=== PATIENT | female | born 1965 | race Caucasian/White ===

== ENCOUNTER 2019-08-10 00:58 | Emergency (ER) | payer OTHER, SELFPAY ==
--- NOTE | ~2019-08-10 | CT_ITS ---
EXAMINATION: CT abdomen pelvis w con DATE: 08/10/2019 02:45 INDICATION: Right flank pain. TECHNIQUE: Computed tomography (CT) of the abdomen and pelvis was performed with 100 mL Omnipaque 350 intravenous contrast. Automated exposure control and iterative reconstruction technique were employe d. The dose-length product was 349.83 mGy-cm. COMPARISON: CT pelvis 03/10/2016, chest CT 08/13/2016 FINDINGS: The visualized portions of the lung bases demonstrate severe emphysema and mild atelectasis . There are scattered pulmonary nodules measuring up to 5 mm without change, consistent with granulom atous disease. No pleural effusion. The heart size is normal. No pericardial effusion. There are cyst s in the liver measuring up to 6 mm. The gallbladder, spleen, pancreas, and adrenal glands are normal . There is cortical thinning of right kidney. There is a 5 mm cyst in left kidney. There are no dilat ed loops of bowel. The appendix is normal. There are no pathologically enlarged lymph nodes. There is no free intraperitoneal fluid. There is a benign bone island in T11 vertebral body. There is mild sol mbar spondylosis. IMPRESSION: 1. Severe emphysema. Reviewed, dictated and finalized at location A. IMPRESSION: 1. Severe emphysema.
[2019-08-10 01:07] VITALS: BP 118/88; PULSE 122; RESP 23; TEMP 36.5; O2SAT 94
--- NOTE | 2019-08-10 01:23 | ED.GENADULT ---
HPI - General Adult General Chief complaint: Extremity Injury, Lower Stated complaint: right hip pain Time Seen by Provider: 08/10/19 01:06 Source: patient Mode of arrival: EMS Limitations: no limitations History of Present Illness HPI narrative: Patient is a 54-year-old female with a history of COPD who presents for evaluation of right hip pain. Patient reports a 3-day history of worsening right hip pain, described as moderate in nature, worsened with movement, dull and aching in nature. No recent falls or injuries. She has a history of chronic lower back pain states that has been worsened from baseline as well. No recent heavy lifting. She has been mostly at home continued her saw from others. She denies any fever, worsening cough, shortness of breath. No rashes or redness. Patient reports the pain is on the outside of her hip. She denies flank pain. No numbness. No weakness. She has been ambulatory. No bowel or bladder incontinence. Related Data Home Medications Medication Instructions Recorded Confirmed Eliquis 5 mg PO BID 04/30/19 04/30/19 Incruse Ellipta 1 inh INHALATION DAILY 04/30/19 04/30/19 Symbicort 2 puff INHALATION Q12H 04/30/19 04/30/19 acetaminophen 650 mg PO Q4-6H PRN 04/30/19 04/30/19 diclofenac sodium 50 mg PO TID PRN 04/30/19 04/30/19 gabapentin 300 mg PO TID 04/30/19 04/30/19 hydroxyzine pamoate 25 mg PO TID PRN 04/30/19 04/30/19 metoprolol succinate 25 mg PO DAILY 04/30/19 04/30/19 tizanidine 4 mg PO TID 04/30/19 04/30/19 trazodone 50 mg PO HS 04/30/19 04/30/19 venlafaxine 75 mg PO DAILY 04/30/19 04/30/19 Allergies Allergy/AdvReac Type Severity Reaction Status Date / Time nitrofurantoin Allergy Unknown HIVES Verified 08/10/19 01:26 oxycodone Allergy Unknown NAUSEA, Verified 08/10/19 01:26 HEART RACING Review of Systems Review of Systems: Narrative: CONSTITUTIONAL: Denies fever, chills, or sweats. EYES: Denies visual changes, redness, or discharge. ENT: Denies rhinorrhea, congestion, sore throat, or otalgia. CARDIOVASCULAR: Denies chest pain, palpitations, or edema. RESPIRATORY: Denies cough or dyspnea. GASTROINTESTINAL: Denies abdominal pain, nausea, vomiting, or diarrhea. GENITOURINARY: Denies dysuria or hematuria. SKIN: Denies rash or itching. MUSCULOSKELETAL: Reports chronic back pain, reports right joint pain NEUROLOGIC: Denies headache, numbness, or weakness. [facility] Past Medical History Medical History Anemia Anxiety Arm fracture, left Arthritis Back pain Bronchitis COPD (chronic obstructive pulmonary disease) Depression Emphysema of lung Foot fracture, right GERD (gastroesophageal reflux disease) Inguinal hernia Kidney stones On home O2 2 L at rest Pneumonia Pulmonary embolism Sleep apnea UTI (urinary tract infection) Surgical History Surgical History Hx of arthroscopy of left knee Hx of elbow surgery lt elbow Hx of inguinal hernia repair Hx of tonsillectomy Hx of tubal ligation Social History Social History Smoking packs per day: 0.5 Smoking cigarettes per day: 10.0 Years smoked: 30 Smoking pack-years: 15.00 Smoking status: Current every day smoker Second hand tobacco smoke exposure: Yes Gender identity (if verbalized by the patient): Female Spiritual care concerns: No Agree to blood products: Yes Exam Narrative: Exam Narrative: GENERAL: Awake, alert, conversant HEAD: Normocephalic, atraumatic. EYES: PERRLA and EOMI. ENT: Nares clear, no rhinorrhea or epistaxis. Mucous membranes moist. NECK: Supple. CHEST: Nasal cannula in place, no respiratory distress, breathing even and non labored HEART: Regular rate, sinus rhythm ABDOMEN:Non distended, non tender EXTREMITIES: Normal range of motion. Negative straight leg raise. No pain with internal or external rotation of bila
[2019-08-10 01:43] LABS: Basophils Absolute Auto 0.1 K/mm3 (0.0-0.1); Eosinophils Absolute Auto 0.1 K/mm3 (0-0.3); Eosinophils Percent Auto 1.8 % (0-4.4); Hematocrit 47.4 % (37.0-47.0); Hemoglobin 15.2 g/dL (12.0-15.0); Immature Granulocyte Absolute 0.02 K/mm3 (0.00-0.031); Immature Granulocyte Percent A 0.3 % (0-0.5); Lymphocytes Percent Auto 25.8 % (18.3-44.2); Mean Corpuscular HGB Conc 32.1 g/dl (32-36); Mean Corpuscular Hemoglobin 31.1 pg (26-34); Mean Corpuscular Volume 96.9 fl (80-100); Mean Platelet Volume 11.1 fl (7.4-10.4); Monocytes Absolute Auto 0.6 K/mm3 (0.1-0.6); Monocytes Percent Auto 7.7 % (2.6-8.5); Neutrophils Absolute Auto 4.9 K/mm3 (1.3-6.7); Neutrophils Percent Auto 63.4 % (45.5-73.1); Platelet Count Result 312 k/mm3 (150-375); Red Blood Count 4.89 M/mm3 (4.2-5.4); Red Cell Distribution Width 12.3 % (11.5-14.5); White Blood Count 7.8 K/mm3 (4.5-10.0)
[2019-08-10 02:26] LABS: Blood Urea Nitrogen 8 mg/dL (7-17); Calcium 9.1 mg/dL (8.4-10.2); Carbon Dioxide 34 mmol/L (22-30); Chloride 95 mmol/L (98-107); Estimated Glomerular Filt Rate > 60; Glucose 102 mg/dL (65-105); Potassium 4.2 mmol/L (3.4-5.0); Sodium 135 mmol/L (137-145)
[2019-08-10 02:29] LABS: CRP < 0.5 mg/dL (<1.0)
[2019-08-10 02:55] VITALS: BP 123/84; PULSE 92; RESP 12; O2SAT 97
[2019-08-10 03:15] VITALS: BP 115/86; PULSE 94; RESP 12; O2SAT 99
[2019-08-10 03:37] LABS: Erythrocyte Sedimentation Rate 17 mm/hr (0-20)
== END 2019-08-10 03:15 | disposition home or self-care (01) ==
PROVIDERS: Emergency Provider Emergency Medicine; PCP Family Medicine
DX: S76.011A Strain of muscle, fascia and tendon of right hip, initial encounter (principal); J43.9 Emphysema, unspecified; F41.9 Anxiety disorder, unspecified; M19.90 Unspecified osteoarthritis, unspecified site; F32.9 Major depressive disorder, single episode, unspecified; K21.9 Gastro-esophageal reflux disease without esophagitis; Z87.442 Personal history of urinary calculi; Z86.711 Personal history of pulmonary embolism; Z87.440 Personal history of urinary (tract) infections; Z99.81 Dependence on supplemental oxygen; Z86.2 Personal history of diseases of the blood and blood-forming organs and certain disorders involving the immune mechanism; Z79.01 Long term (current) use of anticoagulants; X58.XXXA Exposure to other specified factors, initial encounter
CPT/HCPCS: 36415; 74177; 80048; 85025; 85652; 86140; 99284; A9270; Q9967

== ENCOUNTER 2019-08-14 14:47 | Emergency (ER) | payer OTHER, SELFPAY ==
[2019-08-14 14:59] VITALS: BP 131/103; PULSE 107; RESP 16; TEMP 36.9; O2SAT 96
--- NOTE | 2019-08-14 15:09 | ED.GENADULT ---
HPI - General Adult General Chief complaint: Back Pain/Injury Stated complaint: Lower Back Pain Time Seen by Provider: 08/14/19 15:14 Source: patient and RN notes reviewed Mode of arrival: ambulatory Limitations: no limitations History of Present Illness HPI narrative: 54-year-old female presents with complaints of chronic diffused lower back pain and right hip for the past 4 days. Tylenol and Lidocaine patch with little to no relief. Sharifa says she was treated for RT hip pain in the ED on 08/10/19 and pain continuous to get worse. Sharifa previously was treated with back injections by a pain MD in [place]. Denies new injuries or falls. Denies radiating pain, numbness, or tingling. Denies fever or chills. No new upper or lower extremity pain or weakness. Exacerbating factors consist of prolong standing and bending. Denies diarrhea, nausea, vomiting, or abdominal pain. Tolerating po intake well. Denies problems with urinating or having a bowel movement, LBM 08/13/19 per patient and normal. No flank pain or hematuria or dysuria. Denies headaches, weakness, fatigue, myalgia. Denies chest pain or dyspnea. Denies cough, rhinorrhea, congestion, sore throat. Denies recent traveling. Denies concerns for COVID-19 or exposures been home since [id number] order except for essential household needs and returned home. Some parts of this dictation were generated by voice recognition software and may contain typographical and/or grammatical inaccuracies. Related Data Home Medications Medication Instructions Recorded Confirmed Eliquis 5 mg PO BID 04/30/19 04/30/19 Incruse Ellipta 1 inh INHALATION DAILY 04/30/19 04/30/19 Symbicort 2 puff INHALATION Q12H 04/30/19 04/30/19 acetaminophen 650 mg PO Q4-6H PRN 04/30/19 04/30/19 diclofenac sodium 50 mg PO TID PRN 04/30/19 04/30/19 gabapentin 300 mg PO TID 04/30/19 04/30/19 hydroxyzine pamoate 25 mg PO TID PRN 04/30/19 04/30/19 metoprolol succinate 25 mg PO DAILY 04/30/19 04/30/19 tizanidine 4 mg PO TID 04/30/19 04/30/19 trazodone 50 mg PO HS 04/30/19 04/30/19 venlafaxine 75 mg PO DAILY 04/30/19 04/30/19 Allergies Allergy/AdvReac Type Severity Reaction Status Date / Time nitrofurantoin Allergy Unknown HIVES Verified 08/10/19 01:26 oxycodone Allergy Unknown NAUSEA, Verified 08/10/19 01:26 HEART RACING Review of Systems Review of Systems: Narrative: CONSTITUTIONAL: Denies fever, chills, sweats. EYES: Denies visual changes, redness, discharge. ENT: Denies rhinorrhea, congestion, sore throat, otalgia. CARDIOVASCULAR: Denies chest pain, palpitations, edema. RESPIRATORY: Denies dyspnea, wheezing, cough. GASTROINTESTINAL: Denies abdominal pain, nausea, vomiting, diarrhea. GENITOURINARY: Denies dysuria, hematuria, abnormal discharge. SKIN: Denies rash or itching. MUSCULOSKELETAL: Complains of chronic lower back pain and RT hip pain. Denies myalgia. NEUROLOGIC: Denies numbness or focal weakness. PSYCHIATRIC: Denies anxiety or depression. All systems reviewed & are unremarkable except as noted in HPI and below. [facility] Past Medical History Medical History (Updated 08/14/19 @ 18:54 by EDWINA Wiseman) Anemia Anxiety Arm fracture, left Arthritis Back pain Bronchitis COPD (chronic obstructive pulmonary disease) Depression Emphysema of lung Foot fracture, right GERD (gastroesophageal reflux disease) Inguinal hernia Kidney stones On home O2 2 L at rest and 3 L with activity Pneumonia Pulmonary embolism Sleep apnea UTI (urinary tract infection) Surgical History Surgical History Hx of arthroscopy of left knee Hx of elbow surgery lt elbow Hx of inguinal hernia repair Hx of tonsillectomy Hx of tubal ligation Family History Family History (Updated 08/14/19 @ 18:56 by EDWINA Wiseman) Father , at 46 of lung [place] Lung cancer Mother Cerebrovascular accident Grandparent D
[2019-08-14] MEDS: KETOROLAC (*BKC) 60 MG/2 ML VIAL IM (15:30)
== END 2019-08-14 16:00 | disposition home or self-care (01) ==
PROVIDERS: Emergency Provider Nurse Practitioner Family; PCP Family Medicine
DX: M54.41 Lumbago with sciatica, right side (principal); M19.90 Unspecified osteoarthritis, unspecified site; J43.9 Emphysema, unspecified; K21.9 Gastro-esophageal reflux disease without esophagitis; Z87.442 Personal history of urinary calculi; Z87.440 Personal history of urinary (tract) infections; G47.30 Sleep apnea, unspecified; Z99.81 Dependence on supplemental oxygen; F32.9 Major depressive disorder, single episode, unspecified; F41.9 Anxiety disorder, unspecified; F17.200 Nicotine dependence, unspecified, uncomplicated
CPT/HCPCS: 96372; 99213; G0463; J1885

== ENCOUNTER 2019-10-06 18:18 | Emergency (ER) | payer OTHER, SELFPAY ==
--- NOTE | ~2019-10-06 | XR_ITS ---
EXAMINATION: XR chest 2V DATE: 10/06/2019 19:18 INDICATION: Shortness of breath. TECHNIQUE: Frontal and lateral views of the chest were obtained. COMPARISON: Chest single view 1 11/12, CT abdomen and pelvis 08/10/2019, chest CT 08/13/2016 FINDINGS: There are lucencies in the lungs, consistent with emphysema. There is a spiculated nodule i n left upper lobe. There is mild atelectasis and scarring in the lower lung zones. No pleural effusio n or pneumothorax. The heart size is normal. There is an old healed right rib fracture. IMPRESSION: 1. Spiculated nodule in left upper lobe suspicious for primary bronchogenic carcinoma. Noncontrast ch est CT is recommended. I called this result to Dr. He on 10/06/19 at 19:23. 2. Severe emphysema. 3. Mild atelectasis and scarring in the lower lung zones. Reviewed, dictated and finalized at location A. IMPRESSION: 1. Spiculated nodule in left upper lobe suspicious for primary bronchogenic car cinoma. Noncontrast chest CT is recommended. I called this result to Dr. Aldo marshall on 10/06/19 at 19:23. 2. Severe emphysema. 3. Mild atelectasis and scarring in the lower lung zones.
[2019-10-06 18:42] VITALS: BP 149/101; PULSE 124; RESP 30; O2SAT 96
--- NOTE | 2019-10-06 18:45 | ECG_ITS ---
Measurements Intervals [place] Rate: 119 P: 86 NE: 143 QRS: 53 QRSD: 89 T: 55 QT: 339 QTc: 478 Interpretive Statements SINUS TACHYCARDIA RIGHT ATRIAL ENLARGEMENT MINIMAL Q WAVES- DIFFUSE LEADS BASELINE ARTIFACT- I, III, AVR, AVL, AVF ABNORMAL ECG Electronically Signed On 10-07-2019 7:17:14 CDT by Dick Woodard D.O.
[2019-10-06 19:00] LABS: Basophils Percent Auto 0.5 % (0.2-1.2); Hematocrit 43.4 % (37.0-47.0); Hemoglobin 14.2 g/dL (12.0-15.0); Immature Granulocyte Absolute 0.01 K/mm3 (0.00-0.031); Immature Granulocyte Percent A 0.2 % (0-0.5); Lymphocytes Absolute Auto 0.82 K/mm3 (0.9-3.2); Mean Corpuscular HGB Conc 32.7 g/dl (32-36); Mean Corpuscular Hemoglobin 31.8 pg (26-34); Mean Corpuscular Volume 97.1 fl (80-100); Mean Platelet Volume 10.8 fl (7.4-10.4); Monocytes Absolute Auto 0.2 K/mm3 (0.1-0.6); Monocytes Percent Auto 2.7 % (2.6-8.5); Neutrophils Absolute Auto 4.5 K/mm3 (1.3-6.7); Neutrophils Percent Auto 81.6 % (45.5-73.1); Platelet Count Result 265 k/mm3 (150-375); Red Blood Count 4.47 M/mm3 (4.2-5.4); Red Cell Distribution Width 12.7 % (11.5-14.5); White Blood Count 5.5 K/mm3 (4.5-10.0)
[2019-10-06 19:11] LABS: Blood Urea Nitrogen 10 mg/dL (7-17); Calcium 9.5 mg/dL (8.4-10.2); Carbon Dioxide 28 mmol/L (22-30); Chloride 99 mmol/L (98-107); Estimated CRCL calculation 66 ml/min; Estimated Glomerular Filt Rate > 60; Glucose 176 mg/dL (65-105); Potassium 4.6 mmol/L (3.4-5.0); Sodium 135 mmol/L (137-145)
[2019-10-06 19:50] VITALS: BP 138/98; PULSE 107; PULSE 108; RESP 15; O2SAT 96
--- NOTE | 2019-10-06 20:33 | ED.SOB ---
HPI - SOB/Dyspnea General Chief Complaint: Shortness of Breath/Dyspnea Stated Complaint: SOB/ back pain Time Seen by Provider: 10/06/19 19:43 History of Present Illness HPI Narrative: Patient is a 54-year-old female who presents ER with chest pain and shortness of breath. Patient reports over the last 2 days anytime she walks she is markedly more short of breath than typical for her and she is developing central chest pressure. Patient is an oxygen dependent COPD or who wears 2 L at rest and 3 L with walking. Reports she went to [facility] this morning and received magnesium as well as steroids and breathing treatment and was discharged home. She also reports they performed a CT of her chest and told her she has lung nodules that have grown in size that need to be evaluated further. Patient continues to have chest pain and shortness of breath with exertion and thought it could be related to her heart that is why she came to the ER for second visit. Denies unexplained weight loss. Patient reports that this feels similar to previous COPD exacerbations that she has had. Related Data Home Medications Medication Instructions Recorded Confirmed Eliquis 5 mg PO BID 04/30/19 04/30/19 Incruse Ellipta 1 inh INHALATION DAILY 04/30/19 04/30/19 Symbicort 2 puff INHALATION Q12H 04/30/19 04/30/19 acetaminophen 650 mg PO Q4-6H PRN 04/30/19 04/30/19 diclofenac sodium 50 mg PO TID PRN 04/30/19 04/30/19 gabapentin 300 mg PO TID 04/30/19 04/30/19 hydroxyzine pamoate 25 mg PO TID PRN 04/30/19 04/30/19 metoprolol succinate 25 mg PO DAILY 04/30/19 04/30/19 tizanidine 4 mg PO TID 04/30/19 04/30/19 trazodone 50 mg PO HS 04/30/19 04/30/19 venlafaxine 75 mg PO DAILY 04/30/19 04/30/19 Allergies Allergy/AdvReac Type Severity Reaction Status Date / Time nitrofurantoin Allergy Unknown HIVES Verified 08/10/19 01:26 oxycodone Allergy Unknown NAUSEA, Verified 08/10/19 01:26 HEART RACING Review of Systems Review of Systems: All systems reviewed & are unremarkable except as noted in HPI and below Constitutional: Constitutional: Denies chills, Denies fever(s) and Reports weakness ENT: Denies nasal congestion and Denies sore throat Cardiovascular: Cardiovascular: Reports chest pain, Reports rapid heart rate and Denies radiating jaw, neck or arm pain Respiratory: Respiratory: Denies chest congestion, Denies cough, Reports dyspnea and Denies wheezing Gastrointestinal: Gastrointestinal: Denies abdominal pain, Denies nausea and Denies vomiting [facility] Past Medical History Medical History (Updated 10/06/19 @ 21:26 by Alton He MD) Anemia Anxiety Arm fracture, left Arthritis Back pain Bronchitis COPD (chronic obstructive pulmonary disease) Depression Emphysema of lung Foot fracture, right GERD (gastroesophageal reflux disease) Inguinal hernia Kidney stones On home O2 2 L at rest and 3 L with activity Pneumonia Pulmonary embolism Sleep apnea UTI (urinary tract infection) Surgical History Surgical History Hx of arthroscopy of left knee Hx of elbow surgery lt elbow Hx of inguinal hernia repair Hx of tonsillectomy Hx of tubal ligation Family History Family History (Updated 08/14/19 @ 18:56 by EDWINA Wiseman) Father , at 46 of lung [place] Lung cancer Mother Cerebrovascular accident Grandparent Diabetes mellitus Social History Social History (Updated 08/14/19 @ 18:57 by EDWINA Wiseman) Smoking packs per day: 0.5 Smoking cigarettes per day: 10.0 Years smoked: 30 Smoking pack-years: 15.00 Smoking status: Current every day smoker Second hand tobacco smoke exposure: Yes Alcohol intake: former Substance use: never Additional living arrangements comments: stays with cousin Additional occupation/education comments: disable Gender identity (if verbalized by the patient): Female
--- NOTE | 2019-10-06 20:40 | PC.NURSE ---
called lab to add on blood tests
[2019-10-06 20:53] VITALS: BP 146/100; PULSE 109; RESP 14; O2SAT 96
[2019-10-06 20:58] LABS: INR 0.9; Prothrombin Time 12.2 Seconds (11.1-14.7)
[2019-10-06 21:09] LABS: Troponin I < 0.012 ng/mL (0.000-0.034)
[2019-10-06 21:45] VITALS: BP 148/100; PULSE 112; RESP 15; O2SAT 98
== END 2019-10-06 21:45 | disposition home or self-care (01) ==
PROVIDERS: Emergency Provider Emergency Medicine; PCP Family Medicine
DX: J44.9 Chronic obstructive pulmonary disease, unspecified (principal); Z99.81 Dependence on supplemental oxygen; M19.90 Unspecified osteoarthritis, unspecified site; K21.9 Gastro-esophageal reflux disease without esophagitis; G47.30 Sleep apnea, unspecified; F32.9 Major depressive disorder, single episode, unspecified; F41.9 Anxiety disorder, unspecified; Z79.01 Long term (current) use of anticoagulants; Z86.2 Personal history of diseases of the blood and blood-forming organs and certain disorders involving the immune mechanism; Z86.711 Personal history of pulmonary embolism; Z87.442 Personal history of urinary calculi; Z87.440 Personal history of urinary (tract) infections; R00.0 Tachycardia, unspecified; R94.31 Abnormal electrocardiogram [ECG] [EKG]; R91.1 Solitary pulmonary nodule
CPT/HCPCS: 36415; 71046; 80048; 84484; 85025; 85610; 85730; 93005; 99284

== ENCOUNTER 2019-10-31 10:14 | Outpatient (CLI) | payer OTHER, SELFPAY ==
--- NOTE | ~2019-10-31 | US_ITS ---
EXAMINATION: US thyroid DATE: 10/31/2019 10:52 INDICATION: Thyroid nodule TECHNIQUE: Multiple ultrasound images of the thyroid were obtained. COMPARISON: 08/10/2018 and 08/12/2018 FINDINGS: The right thyroid lobe measures 4.0 x 1.9 x 1.7 cm. The left thyroid lobe measures 4.6 x 2.3 x 2.1 c m. Again seen are multiple bilateral thyroid nodules. The largest nodules in the right thyroid lobe is a well-defined wider than tall mixed hypoechoic solid and anechoic cystic nodule measuring 11 x 10 x 10 mm (TI-RADS 3, mildly suspicious , FNA if >=2.5 cm, annual followup is >1.5 cm). This could rep resent decrease in size of the cystic component of a previously 1.4 cm mixed solid and cystic nodule in similar location at the mid right thyroid. Unchanged smaller solid 7 mm nodule in the inferior rig ht thyroid (TI-RADS 4, moderately suspicious , FNA if >=1.5 cm, annual followup is >1 cm). No interva l change in a 1.7 cm almost completely solid hypoechoic wider than tall nodule with smooth margins an d without echogenic foci TI RADS 4. No significant interval change in a TI RADS 4, 2.1 x 1.8 x 1.4 cm predominant solid isoechoic nodule with smooth margins which appears appears wider than tall in the current study. Unchanged TI RADS 4, 12 x 10 x 7 mm wider than tall solid hypoechoic nodule at the ist hmus. IMPRESSION: 1. Multinodular goiter. There are 2 TI RADS 4 nodules measuring 2.1 cm and 1.7 cm in the left thyroid lobe which would meet criteria for ultrasound-guided biopsy. The larger nodule has not previously be en biopsied and this would be recommended. The 1.7 cm nodule has previously been biopsied but with no ndiagnostic sample and would consider rebiopsy. Reviewed, dictated and finalized at location A. IMPRESSION: 1. Multinodular goiter. There are 2 TI RADS 4 nodules measuring 2.1 cm and 1.7 cm in the left thyroid lobe which would meet criteria for ultrasound-guided bio psy. The larger nodule has not previously been biopsied and this would be recom mended. The 1.7 cm nodule has previously been biopsied but with nondiagnostic s ample and would consider rebiopsy.
== END 2019-10-31 10:15 | disposition home or self-care (01) ==
PROVIDERS: PCP Family Medicine; Visit Provider Family Medicine
DX: E04.2 Nontoxic multinodular goiter (principal)
CPT/HCPCS: 76536

== ENCOUNTER 2019-11-26 02:03 | Inpatient (IN) | payer OTHER, SELFPAY ==
[2019-11-26] VITALS (22 sets, daily range): BP systolic 113–168; BP diastolic 76–107; PULSE 79–126; RESP 18–26; TEMP 36.1–37.2; O2SAT 91–99; BMI 23.5
--- NOTE | ~2019-11-26 | CT_ITS ---
EXAMINATION: CT chest w con DATE: 11/26/2019 12:51 INDICATION: Left upper lobe mass TECHNIQUE: Computed tomography (CT) of the chest was performed with 75 cc Omnipaque 350 intravenous c ontrast. The dose-length product was 143.69 mGy-cm. Automated exposure control and iterative reconstr uction technique were employed. COMPARISON: CT dated 08/13/2016 and chest x-ray dated 11/26/2019 FINDINGS: New irregular shaped left upper lobe mass measuring 3.1 x 2.3 x 2.1 cm, compatible with bro nchogenic carcinoma until proven otherwise. Severe emphysema. There is an irregular shaped 1.5 cm mas s right upper lobe, axial image 61. There is a 7 mm nodule right upper lobe, image 56. 5 mm left uppe r lobe nodule, image 78. 5 mm nodule left upper lobe at the fissure, coronal image 72. There are soo tional smaller nodules. No pneumothorax. No focal airspace consolidation. No thoracic lymphadenopathy . No significant pleural or pericardial effusion. Heart size normal. Mild thoracic spondylosis. Stabl e sclerotic lesion of T11, likely bone island. There is a healed sternal fracture. IMPRESSION: 1. Bilateral pulmonary nodules, largest dominant mass in the left upper lobe measuring 3.1 cm maximum dimension. There is an additional 1.5 cm right upper lobe mass. These findings are compatible with m alignancy until proven otherwise. Recommend further evaluation with pet/CT and/or percutaneous biopsy. 2: Severe emphysema. Reviewed, dictated and finalized at location A. IMPRESSION: 1. Bilateral pulmonary nodules, largest dominant mass in the left upper lobe me asuring 3.1 cm maximum dimension. There is an additional 1.5 cm right upper lob e mass. These findings are compatible with malignancy until proven otherwise. R ecommend further evaluation with pet/CT and/or percutaneous biopsy. 2: Severe emphysema.
--- NOTE | ~2019-11-26 | XR_ITS ---
EXAMINATION: XR chest 1V portable EXAM DATE: 11/26/2019 02:56 INDICATION: Chest pain. TECHNIQUE: Portable AP frontal chest x-ray was obtained. Comparison is made to prior examination from 10/06/2019. FINDINGS: Spiculated left upper lobe masslike density suspicious for primary lung cancer again noted. Measures up to about [address] is recommended for further evaluation. There is moderate chronic hyperinflation. There is evidence of significant upper lung zone predominan t emphysema. No acute airspace disease or pneumothorax. Cardiomediastinal silhouette is normal. There are no pleural effusions. There are no osseous abnormalities identified. IMPRESSION: Left upper lobe mass; chest CT indicated. Reviewed, dictated and finalized at location A.
--- NOTE | 2019-11-26 02:15 | ECG_ITS ---
Measurements Intervals [place] Rate: 128 P: 89 IA: 140 QRS: 62 QRSD: 92 T: 64 QT: 334 QTc: 488 Interpretive Statements SINUS TACHYCARDIA LEFT ATRIAL ENLARGEMENT RIGHT ATRIAL ENLARGEMENT MINIMAL Q WAVES- ANTEROLAT/INF LEADS BASELINE ARTIFACT- I, II, IIII, AVR, AVL, AVF ABNORMAL ECG Electronically Signed On 11-26-2019 7:35:05 CDT by Dick Woodard D.O.
--- NOTE | 2019-11-26 02:18 | ED.CHESTPAIN ---
HPI - Chest Pain General Chief Complaint: Chest Pain Stated Complaint: CHEST PAIN Time Seen by Provider: 11/26/19 02:05 Source: RN notes reviewed History of Present Illness HPI narrative: Patient presents emergency department from home for chest pain. Patient states she has been having intermittent chest pain for the last month that worsened this evening. Pain is located present bilateral anterior chest and goes into her back and to her left arm. Pain is described as aching in nature. Patient states she has a history of COPD chronically on 2 to 3 L nasal cannula. States she has been feeling more short of breath. Denies any fevers or coughs denies any nausea vomiting or any other symptoms. Patient states she last took Tylenol approximately 3 hours ago Related Data Home Medications Medication Instructions Recorded Confirmed Eliquis 5 mg PO BID 04/30/19 04/30/19 Incruse Ellipta 1 inh INHALATION DAILY 04/30/19 04/30/19 Symbicort 2 puff INHALATION Q12H 04/30/19 04/30/19 acetaminophen 650 mg PO Q4-6H PRN 04/30/19 04/30/19 diclofenac sodium 50 mg PO TID PRN 04/30/19 04/30/19 gabapentin 300 mg PO TID 04/30/19 04/30/19 hydroxyzine pamoate 25 mg PO TID PRN 04/30/19 04/30/19 metoprolol succinate 25 mg PO DAILY 04/30/19 04/30/19 tizanidine 4 mg PO TID 04/30/19 04/30/19 trazodone 50 mg PO HS 04/30/19 04/30/19 venlafaxine 75 mg PO DAILY 04/30/19 04/30/19 Allergies Allergy/AdvReac Type Severity Reaction Status Date / Time nitrofurantoin Allergy Unknown HIVES Verified 08/10/19 01:26 oxycodone Allergy Unknown NAUSEA, Verified 08/10/19 01:26 HEART RACING Review of Systems Review of Systems: Narrative: Gen.: Denies fevers or chills ENT: Denies congestion Respiratory: Reports shortness of breath CV: See HPI GI: Denies abdominal pain nausea, emesis or diarrhea denies burning, urgency, frequency or hematuria Musculoskeletal: Denies back pain or muscle pain Neuro: Denies numbness, tingling, weakness or focal weakness Skin: Denies rash Except as documented, all other systems reviewed and negative [facility] Past Medical History Medical History Anemia Anxiety Arm fracture, left Arthritis Back pain Bronchitis COPD (chronic obstructive pulmonary disease) Depression Emphysema of lung Foot fracture, right GERD (gastroesophageal reflux disease) Inguinal hernia Kidney stones On home O2 2 L at rest and 3 L with activity Pneumonia Pulmonary embolism Sleep apnea UTI (urinary tract infection) Surgical History Surgical History Hx of arthroscopy of left knee Hx of elbow surgery lt elbow Hx of inguinal hernia repair Hx of tonsillectomy Hx of tubal ligation Family History Family History (Updated 08/14/19 @ 18:56 by EDWINA Wiseman) Father , at 46 of lung [place] Lung cancer Mother Cerebrovascular accident Grandparent Diabetes mellitus Social History Social History Smoking packs per day: 0.5 Smoking cigarettes per day: 10.0 Years smoked: 30 Smoking pack-years: 15.00 Smoking status: Current every day smoker Second hand tobacco smoke exposure: Yes Alcohol intake: former Substance use: never Additional living arrangements comments: stays with cousin Additional occupation/education comments: disable Gender identity (if verbalized by the patient): Female Spiritual care concerns: No Agree to blood products: Yes Exam Narrative: Exam Narrative: APPEARANCE: Mild respiratory distress, nontoxic, resting in bed EYES: EOMI HEENT: Normocephalic, atraumatic, OMM RESPIRATORY: Mild respiratory distress, wheezing the bilateral upper lung andrea decreased breath sounds throughout the bilateral lung andrea CARDIOVASCULAR: Regular rate and rhythm without murmurs rubs or gallops. Chest: Te
[2019-11-26] MEDS: methylPREDNISolone SOD SUCC 125 MG VIAL IV PUSH (02:21)
[2019-11-26 02:24] LABS: Basophils Absolute Auto 0.1 K/mm3 (0.0-0.1); Basophils Percent Auto 0.7 % (0.2-1.2); Eosinophils Absolute Auto 0.2 K/mm3 (0-0.3); Eosinophils Percent Auto 1.5 % (0-4.4); Hematocrit 45.3 % (37.0-47.0); Hemoglobin 15.5 g/dL (12.0-15.0); Immature Granulocyte Absolute 0.02 K/mm3 (0.00-0.031); Immature Granulocyte Percent A 0.2 % (0-0.5); Lymphocytes Absolute Auto 2.22 K/mm3 (0.9-3.2); Lymphocytes Percent Auto 21.7 % (18.3-44.2); Mean Corpuscular HGB Conc 34.2 g/dl (32-36); Mean Corpuscular Hemoglobin 31.9 pg (26-34); Mean Corpuscular Volume 93.2 fl (80-100); Mean Platelet Volume 10.7 fl (7.4-10.4); Monocytes Percent Auto 9.8 % (2.6-8.5); Neutrophils Absolute Auto 6.8 K/mm3 (1.3-6.7); Neutrophils Percent Auto 66.1 % (45.5-73.1); Platelet Count Result 296 k/mm3 (150-375); Red Blood Count 4.86 M/mm3 (4.2-5.4); Red Cell Distribution Width 12.3 % (11.5-14.5); White Blood Count 10.2 K/mm3 (4.5-10.0)
[2019-11-26] MEDS: ALBUTEROL SULFATE NEB 2.5 MG/0.5 ML INH 5 MG INHALATION ×4 (02:32→19:32)
[2019-11-26] MEDS: IPRATROPIUM BR 0.02% INH SOLN 0.5 MG/2.5 ML VIAL INHALATION ×4 (02:32→19:32)
[2019-11-26 02:36] LABS: Anion Gap 11.5 mmol/L (7-16); Blood Urea Nitrogen 14 mg/dL (7-17); Carbon Dioxide 33 mmol/L (22-30); Chloride 92 mmol/L (98-107); Estimated Glomerular Filt Rate > 60; Glucose 118 mg/dL (65-105); Potassium 3.5 mmol/L (3.4-5.0); Sodium 133 mmol/L (137-145)
[2019-11-26 02:37] LABS: Prothrombin Time 12.7 Seconds (11.1-14.7)
[2019-11-26 02:39] LABS: Partial Thromboplastin Time 32.6 SECONDS (22.3-36.8)
[2019-11-26 02:46] LABS: Alveolar/Arterial O2 Gradient 15.5 mmHg; Base Excess ABG 6.7 mEq/l (+/-2.0); Device NASAL CANNULA; Fractional Inspired Oxygen 24 %; HCO3 ABG 33.1 mEq/l (22.0-26.0); Oxygen Content ABG 19.2 %vol (16.0-22.0); Oxygen Saturation ABG 96.9 % (95.0-100.0); Oxyhemoglobin 88.8 % THb (90.0-100.0); PCO2 ABG 53.7 mmHg (35.0-45.0); PO2 ABG 91.7 mmHg (80.0-100.0); PO2 FiO2 Ratio Arterial Blood 3.82 %; Site Drawn RIGHT BRACHIAL; Total Hemoglobin 15.3 g/dL (12.0-18.0); pH ABG 7.408 (7.350-7.450)
[2019-11-26 02:48] LABS: Troponin I < 0.012 ng/mL (0.000-0.034)
[2019-11-26] MEDS: ASPIRIN 81 MG CHEWABLE TABLET 324 MG PO (03:44)
--- NOTE | 2019-11-26 03:45 | PM.IMHP ---
H&P: HPI History of Present Illness Date/Time: 11/26/19 03:45 Chief complaint: AE COPD Narrative: This is a 54 year old female with known COPD, anticoagulated on Eliquis, and chronic respiratory failure on 2L of oxygen at home who presented to the hospital with a complaint of intermittent chest discomfort over the past month with increased chest tightness, wheezing, and increased exertional shortness of breath over the past few days. She complains of midsternal chest tightness that seems to radiate towards her left arm. She describes her left arm discomfort as feeling weird . She denies any significant coughing. She denies any nausea, vomiting, fever, chills, sore throat, abdominal pain, dysuria, hematuria, diarrhea or rectal bleeding. No lower extremity swelling is reported. She states she has been taking her medications as prescribed. The patient has been given various breathing treatments. CXR did not demonstrate any pneumonia. We have been asked to admit the patient to the hospital for further care. No other complaints. Review of Systems Review of Systems: All systems reviewed & are unremarkable except as noted in HPI and below PMFSH Past Medical History Medical History Anemia Anxiety Arm fracture, left Arthritis Back pain Bronchitis COPD (chronic obstructive pulmonary disease) Depression Emphysema of lung Foot fracture, right GERD (gastroesophageal reflux disease) Inguinal hernia Kidney stones On home O2 2 L at rest and 3 L with activity Pneumonia Pulmonary embolism Sleep apnea UTI (urinary tract infection) Surgical History Surgical History Hx of arthroscopy of left knee Hx of elbow surgery lt elbow Hx of inguinal hernia repair Hx of tonsillectomy Hx of tubal ligation Family History Family History Father , at 46 of lung CA Lung cancer Mother Cerebrovascular accident Grandparent Diabetes mellitus Social History Social History Smoking packs per day: 0.5 Smoking cigarettes per day: 10.0 Years smoked: 30 Smoking pack-years: 15.00 Smoking status: Current every day smoker Tobacco type: cigarettes Second hand tobacco smoke exposure: Yes Alcohol intake: never Substance use: never Additional living arrangements comments: stays with cousin Additional occupation/education comments: disable Gender identity (if verbalized by the patient): Female Spiritual care concerns: No Agree to blood products: Yes Meds Home Medications and Allergies Home Medications Medication Instructions Recorded Confirmed Type Eliquis 5 mg PO BID 04/30/19 11/26/19 History Incruse Ellipta 1 inh INHALATION DAILY 04/30/19 11/26/19 History acetaminophen 650 mg PO Q4-6H PRN 04/30/19 11/26/19 History budesonide-formoterol [Symbicort] 2 puff INHALATION Q12H 04/30/19 11/26/19 History gabapentin 300 mg PO TID 04/30/19 11/26/19 History hydroxyzine pamoate 50 mg PO QID PRN 04/30/19 11/26/19 History tizanidine 4 mg PO TID 04/30/19 11/26/19 History venlafaxine 75 mg PO DAILY 04/30/19 11/26/19 History omeprazole 40 mg PO DAILY #30 cap 05/06/19 11/26/19 Rx lidocaine 1 patch TOPICAL Q24H PRN 10 Days 08/10/19 11/26/19 Rx #10 each buspirone 10 mg PO QID PRN 11/26/19 11/26/19 History metoprolol tartrate 25 mg PO BID 11/26/19 11/26/19 History Allergies Allergy/AdvReac Type Severity Reaction Status Date / Time nitrofurantoin Allergy Unknown HIVES Verified 08/10/19 01:26 oxycodone Allergy Unknown NAUSEA, Verified 08/10/19 01:26 HEART RACING Vital Signs Vital Signs - 24 hr 11/26/19 02:07 11/26/19 02:13 11/26/19 02:33 Temperature 37.2 C Pulse Rate 126 H 123 H 102 H Respiratory Rate 26 H 20 Blood Pressure 168/107 H Pulse Oxi
--- NOTE | 2019-11-26 04:37 | ADMGEN ---
This patient, Sharifa Mosquera, was admitted to Medical Room 255-. Patient/family oriented to hospital policies and general routines including ID bracelet, bed and alarms, visiting hours, pain management, procedures, bathroom and other care routines, personal items, smoking policy, room service/diet, and visiting hours. Valuables list has been completed. Information on how to activate the Rapid Response Team has been discussed. Patient/Family are encouraged to report perceived risks to care and to ask questions if they do not understand what they are told or what they should do.
[2019-11-26 05:32] LABS: Troponin I < 0.012 ng/mL (0.000-0.034)
[2019-11-26 07:49] LABS: Troponin I < 0.012 ng/mL (0.000-0.034)
[2019-11-26] MEDS: LORazepam 0.5 MG TABLET PO ×3 (09:09→22:04)
[2019-11-26] MEDS: METOPROLOL TARTRATE 25 MG TABLET PO ×2 (10:05→20:09)
[2019-11-26] MEDS: GABAPENTIN 300 MG CAPSULE PO ×3 (10:05→17:32)
[2019-11-26] MEDS: VENLAFAXINE HCL XR 75 MG CAP.ER.24H PO (10:05)
[2019-11-26] MEDS: busPIRone HCL 10 MG TABLET PO ×2 (10:06→20:09)
--- NOTE | 2019-11-26 10:32 | PM.IMPN ---
Progress Note: A&P Assessment and Plan (1) COPD exacerbation: Code(s): J44.1 - Chronic obstructive pulmonary disease with (acute) exacerbation Status: Acute Assessment and Plan: Patient with COPD presents with worsening shortness of breath, wheezing. Today she continues on IV solu-medrol, weaned dose today; nebulized bronchodilator thearpy; supplemental O2. Smoking cessation is imperative. Lung mass and anxiety may be contributing. (2) Lung mass: Code(s): R91.8 - Other nonspecific abnormal finding of lung field Status: Acute Assessment and Plan: 3.4cm left upper lobe spiculated mass noted on imaging. Obtain CT chest today. She describes she knows about this mass and is aware it could be malignant. Her PCP has tried to arrange PET scan but she is having issues with her insurance and has not been able to get this performed. (3) Chronic respiratory failure with hypoxia: Code(s): J96.11 - Chronic respiratory failure with hypoxia Status: Chronic Assessment and Plan: Tolerating her home O2 requirement today. She reports using 2L/min at rest and 3L with activity. (4) Chest pain: Qualifiers: Chest pain type: unspecified Qualified Code(s): R07.9 - Chest pain, unspecified Code(s): R07.9 - Chest pain, unspecified Status: Acute Assessment and Plan: [place] to be related to COPD or lung mass. Trop negative x 3. Will monitor. 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 Eliquis is held in case she would benefit from lung bx while here. (6) Tobacco dependence: Code(s): F17.200 - Nicotine dependence, unspecified, uncomplicated Status: Chronic Assessment and Plan: Smoking cessation advised. Nicotine patch ordered. Subjective Date/time seen: 11/26/19 0945 Interval history: Ms. Mosquera is a 54yo F admitted for COPD exacerbation. She describes pleuritic chest pain across the anterior chest that wraps around to her back. She has been experiencing worsening shortness of breath over the last 1 month, even worse in the last few days. She reports not coughing much. No fevers. Her SOB is worse with walking. She has tolerated some oral intake without nausea, vomiting, or abdominal pain. She denies weight loss or night sweats. Review of Systems Review of Systems: Narrative: Twelve systems were reviewed with pertinent positives and negatives as per HPI. Exam Narrative: Exam Narrative: General: Chronically ill-appearing female resting supine in bed in no acute distress. Appears older than stated age. HEENT: Normocephalic, EOMI, oral mucosa moist, poor dentition. Cardiovascular: Rate is mildly tachycardic, rhythm is regular. Respiratory: Decreased breath sounds throughout with faint diffuse expiratory wheeze throughtout all andrea. Respirations are even and nonlabored. Tolerating her home O2 requirement 2L [place]. Abdomen: Soft, non-tender, non-distended, bowel sounds present. Extremities: Peripheral pulses intact. No edema. Neuro: No focal neurological deficits. Speech is clear. Objective Data Vital Signs Vital Signs: Last Vital Signs Temp 97.8 F 11/26/19 05:53 Pulse 81 11/26/19 12:00 Resp 18 11/26/19 08:35 BP 113/85 11/26/19 05:53 Pulse Ox 98 11/26/19 08:29 Intake/Output Intake/Output: Intake & Output 11/23/19 11/24/19 11/25/19 11/26/19 23:59 23:59 23:59 23:59 Intake Total 0 Output Total 0 Balance 0 Meds/Results Medications: Active Medications Generic Name Dose Route Start Last Admin Trade Name Freq PRN Reason Stop Dose Admin Acetaminophen 650
[2019-11-26] MEDS: NICOTINE (*PBKC) 14 MG PATCH 1 PATCH TRANSDERM (11:49)
[2019-11-26] MEDS: methylPREDNISolone SOD SUCC 125 MG VIAL 60 MG IV PUSH ×2 (13:42→20:10)
[2019-11-27] VITALS (20 sets, daily range): BP systolic 119–125; BP diastolic 75–78; PULSE 85–116; RESP 18–24; TEMP 36.1–36.6; O2SAT 92–97
[2019-11-27] MEDS: ALBUTEROL SULFATE NEB 2.5 MG/0.5 ML INH 5 MG INHALATION ×4 (01:52→20:03)
[2019-11-27] MEDS: IPRATROPIUM BR 0.02% INH SOLN 0.5 MG/2.5 ML VIAL INHALATION ×4 (01:53→20:03)
[2019-11-27 05:34] LABS: Basophils Percent Auto 0.1 % (0.2-1.2); Hematocrit 41.4 % (37.0-47.0); Hemoglobin 13.7 g/dL (12.0-15.0); Immature Granulocyte Absolute 0.06 K/mm3 (0.00-0.031); Immature Granulocyte Percent A 0.6 % (0-0.5); Lymphocytes Absolute Auto 0.79 K/mm3 (0.9-3.2); Lymphocytes Percent Auto 7.7 % (18.3-44.2); Mean Corpuscular HGB Conc 33.1 g/dl (32-36); Mean Corpuscular Hemoglobin 31.7 pg (26-34); Mean Corpuscular Volume 95.8 fl (80-100); Mean Platelet Volume 11.4 fl (7.4-10.4); Monocytes Absolute Auto 0.5 K/mm3 (0.1-0.6); Neutrophils Absolute Auto 8.9 K/mm3 (1.3-6.7); Neutrophils Percent Auto 86.6 % (45.5-73.1); Platelet Count Result 252 k/mm3 (150-375); Red Blood Count 4.32 M/mm3 (4.2-5.4); Red Cell Distribution Width 12.4 % (11.5-14.5); White Blood Count 10.3 K/mm3 (4.5-10.0)
[2019-11-27 05:45] LABS: Anion Gap 8.6 mmol/L (7-16); Blood Urea Nitrogen 19 mg/dL (7-17); Calcium 9.1 mg/dL (8.4-10.2); Carbon Dioxide 35 mmol/L (22-30); Chloride 92 mmol/L (98-107); Estimated CRCL calculation 75 ml/min; Estimated Glomerular Filt Rate > 60; Glucose 165 mg/dL (65-105); Magnesium 2.2 mg/dL (1.6-2.3); Potassium 4.6 mmol/L (3.4-5.0); Sodium 131 mmol/L (137-145)
[2019-11-27] MEDS: methylPREDNISolone SOD SUCC 125 MG VIAL 60 MG IV PUSH ×3 (06:09→21:29)
[2019-11-27] MEDS: LORazepam 0.5 MG TABLET PO ×3 (06:10→20:44)
[2019-11-27] MEDS: METOPROLOL TARTRATE 25 MG TABLET PO ×2 (09:18→20:44)
[2019-11-27] MEDS: GABAPENTIN 300 MG CAPSULE PO ×3 (09:18→16:38)
[2019-11-27] MEDS: ACETAMINOPHEN 325 MG TABLET 650 MG PO ×2 (09:18→20:44)
[2019-11-27] MEDS: ENOXAPARIN 40 MG/0.4 ML SYRINGE SUB-Q (09:19)
[2019-11-27] MEDS: busPIRone HCL 10 MG TABLET PO ×2 (09:19→20:43)
[2019-11-27] MEDS: NICOTINE (*PBKC) 14 MG PATCH 1 PATCH TRANSDERM (09:19)
[2019-11-27] MEDS: VENLAFAXINE HCL XR 75 MG CAP.ER.24H PO (09:19)
--- NOTE | 2019-11-27 09:52 | PM.IMPN ---
Progress Note: A&P Assessment and Plan (1) COPD exacerbation: Code(s): J44.1 - Chronic obstructive pulmonary disease with (acute) exacerbation Status: Acute Assessment and Plan: Patient with COPD presents with worsening shortness of breath, wheezing. Today she continues on IV solu-medrol; nebulized bronchodilator thearpy; supplemental O2. Smoking cessation is imperative. Lung mass and anxiety may be contributing. She is less anxious this morning. Will add pulmozyme, mucinex, cornet. (2) Lung mass: Code(s): R91.8 - Other nonspecific abnormal finding of lung field Status: Acute Assessment and Plan: Chest CT shows multiple lung nodules with largest being 3.1cm in left upper lobe. May be contributing to her symptoms. She describes she knows about this mass and is aware it could be malignant. Her PCP has tried to arrange PET scan but she is having issues with her insurance and has not been able to get this performed. Also was due to have thyroid nodules biopsied soon. At this point given her respiratory status I feel it is best to continue plan for follow up in the outpatient setting for these biopsies until her breathing is under better control. (3) Chronic respiratory failure with hypoxia: Code(s): J96.11 - Chronic respiratory failure with hypoxia Status: Chronic Assessment and Plan: Tolerating her home O2 requirement today. She reports using 2L/min at rest and 3L with activity. (4) Chest pain: Qualifiers: Chest pain type: unspecified Qualified Code(s): R07.9 - Chest pain, unspecified Code(s): R07.9 - Chest pain, unspecified Status: Acute Assessment and Plan: [place] to be related to COPD or lung mass. Trop negative x 3. Will monitor. Improved today. (5) Thyroid nodule: Code(s): E04.1 - Nontoxic single thyroid nodule Status: Chronic Assessment and Plan: Thyroid US 1 month ago showed Multinodular goiter. There are 2 TI RADS 4 nodules measuring 2.1 cm and 1.7 cm in the left thyroid lobe which would meet criteria for ultrasound-guided biopsy. She is scheduled to have this biopsy soon outpatient. She has had thyroid nodules biopsied in 07/2018 - pathology nondiagnostic. (6) Chronic anticoagulation: Code(s): Z79.01 - shelter (current) use of anticoagulants Status: Chronic Assessment and Plan: For treatment of bilateral pulmonary emboli about 1 year ago per patient. Will resume her Eliquis with no plans for biopsy at this time. (7) Tobacco dependence: Code(s): F17.200 - Nicotine dependence, unspecified, uncomplicated Status: Chronic Assessment and Plan: Smoking cessation advised. Nicotine patch ordered. Subjective Date/time seen: 11/27/19 09:30 Interval history: Ms. Mosquera is a 54yo F admitted for COPD exacerbation. Her pleuritic chest pain that radiates to back is a bit better than yesterday, her shortness of breath is about the same. She has tolerated breakfast without nausea or vomiting. She has a headache this morning and didn't sleep much. She reports she feels like she has mucus to cough up but cant cough it out, which is new today. Review of Systems Review of Systems: Narrative: Twelve systems were reviewed with pertinent positives and negatives as per HPI. Exam Narrative: Exam Narrative: General: Chronically ill-appearing female resting supine in bed in no acute distress. Appears older than stated age. HEENT: Normocephalic, EOMI, oral mucosa moist, poor dentition. Cardiovascular: Rate and rhythm are regular. Respiratory: Decreased breath sounds throughout with faint diffuse expiratory wheeze throughout all andrea. Respirations are even and nonlabored. Tolerating her home O2
[2019-11-27] MEDS: guaiFENesin 12 HR 600 MG TABCR PO ×2 (10:23→20:44)
[2019-11-27] MEDS: APIXABAN 5 MG TABLET PO (16:39)
[2019-11-27] MEDS: DORNASE ALFA INH SOLN 1 MG/ML 2.5 ML AMP 2.5 MG INHALATION (20:03)
[2019-11-28] VITALS (19 sets, daily range): BP systolic 125–134; BP diastolic 69–87; PULSE 87–129; RESP 18–20; TEMP 36.1–36.8; O2SAT 90–97
[2019-11-28] MEDS: IPRATROPIUM BR 0.02% INH SOLN 0.5 MG/2.5 ML VIAL INHALATION ×4 (01:26→21:54)
[2019-11-28] MEDS: ALBUTEROL SULFATE NEB 2.5 MG/0.5 ML INH 5 MG INHALATION ×4 (01:26→21:54)
[2019-11-28] MEDS: LORazepam 0.5 MG TABLET PO ×3 (03:54→20:31)
[2019-11-28] MEDS: methylPREDNISolone SOD SUCC 125 MG VIAL 60 MG IV PUSH (05:02)
[2019-11-28] MEDS: NICOTINE (*PBKC) 14 MG PATCH 1 PATCH TRANSDERM (08:08)
[2019-11-28] MEDS: busPIRone HCL 10 MG TABLET PO ×2 (08:09→20:31)
[2019-11-28] MEDS: GABAPENTIN 300 MG CAPSULE PO ×3 (08:09→17:40)
[2019-11-28] MEDS: guaiFENesin 12 HR 600 MG TABCR PO ×2 (08:09→20:31)
[2019-11-28] MEDS: METOPROLOL TARTRATE 25 MG TABLET PO ×2 (08:09→20:31)
[2019-11-28] MEDS: VENLAFAXINE HCL XR 75 MG CAP.ER.24H PO (08:10)
[2019-11-28] MEDS: APIXABAN 5 MG TABLET PO ×2 (08:10→17:40)
[2019-11-28] MEDS: DORNASE ALFA INH SOLN 1 MG/ML 2.5 ML AMP 2.5 MG INHALATION ×2 (09:16→22:01)
--- NOTE | 2019-11-28 10:13 | PM.IMPN ---
Progress Note: A&P Assessment and Plan (1) COPD exacerbation: Code(s): J44.1 - Chronic obstructive pulmonary disease with (acute) exacerbation Status: Acute Assessment and Plan: Patient with COPD presents with worsening shortness of breath, wheezing. Today she continues on IV solu-medrol, wean dose again today; nebulized bronchodilator thearpy; supplemental O2. Smoking cessation is imperative. Lung mass and anxiety may be contributing. Some improvement from yesterday with pulmozyme, mucinex, cornet. (2) Lung mass: Code(s): R91.8 - Other nonspecific abnormal finding of lung field Status: Acute Assessment and Plan: Chest CT shows multiple lung nodules with largest being 3.1cm in left upper lobe. May be contributing to her symptoms. She describes she knows about this mass and is aware it could be malignant. Her PCP has tried to arrange PET scan but she is having issues with her insurance and has not been able to get this performed yet. Also was due to have thyroid nodules biopsied soon. At this point given her respiratory status, plan is to continue follow up in the outpatient setting for these biopsies until her breathing is under better control. (3) Chronic respiratory failure with hypoxia: Code(s): J96.11 - Chronic respiratory failure with hypoxia Status: Chronic Assessment and Plan: Tolerating her home O2 requirement today. She reports using 2L/min at rest and 3L with activity. (4) Chest pain: Qualifiers: Chest pain type: unspecified Qualified Code(s): R07.9 - Chest pain, unspecified Code(s): R07.9 - Chest pain, unspecified Status: Acute Assessment and Plan: [place] to be related to COPD or lung mass. Trop negative x 3. Will monitor. Improved today. (5) Thyroid nodule: Code(s): E04.1 - Nontoxic single thyroid nodule Status: Chronic Assessment and Plan: Thyroid US 1 month ago showed Multinodular goiter. There are 2 TI RADS 4 nodules measuring 2.1 cm and 1.7 cm in the left thyroid lobe which would meet criteria for ultrasound-guided biopsy. She is scheduled to have this biopsy soon outpatient. She has had thyroid nodules biopsied in 07/2018 - pathology nondiagnostic. 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 Continue her home Eliquis. (7) Tobacco dependence: Code(s): F17.200 - Nicotine dependence, unspecified, uncomplicated Status: Chronic Assessment and Plan: Smoking cessation advised. Nicotine patch ordered. Subjective Date/time seen: 11/28/19 0945 Interval history: Ms. Mosquera is a 54yo F admitted for COPD exacerbation. She reports her shortness of breath is a bit better than when she came in but still moderate when she gets up to use the restroom. Headache is better. Still feels like she has mucus to cough out, she thinks the cornet is helping. Tolerating oral intake without nausea or vomiting. Review of Systems Review of Systems: Narrative: Twelve systems were reviewed with pertinent positives and negatives as per HPI. Exam Narrative: Exam Narrative: General: Chronically ill-appearing female resting supine in bed in no acute distress. Appears older than stated age. HEENT: Normocephalic, EOMI, oral mucosa moist, poor dentition. Cardiovascular: Rate and rhythm are regular. Respiratory: Decreased breath sounds throughout with faint diffuse expiratory wheeze throughout all andrea. Respirations are even and nonlabored. Tolerating her home O2 requirement 2L [place]. Abdomen: Soft, non-tender, non-distended, bowel sounds presen
[2019-11-28] MEDS: polyethylene glycoL 3350 17 GM POWD.PACK PO (10:34)
[2019-11-28] MEDS: DOCUSATE SODIUM 100 MG CAPSULE PO (10:34)
[2019-11-28] MEDS: methylPREDNISolone SOD SUCC 40 MG VIAL IV PUSH ×2 (13:02→22:24)
--- NOTE | 2019-11-28 16:38 | PCCCNOTE ---
On 11/28/19, the student, [Denisha Kemp ], provided care and [facility]. I have reviewed the student's documentation and agree with the findings.
[2019-11-29] VITALS (20 sets, daily range): BP systolic 111–155; BP diastolic 74–86; PULSE 76–106; RESP 12–22; TEMP 35.8–36.4; O2SAT 93–97
[2019-11-29] MEDS: ALBUTEROL SULFATE NEB 2.5 MG/0.5 ML INH 5 MG INHALATION ×4 (02:09→20:08)
[2019-11-29] MEDS: IPRATROPIUM BR 0.02% INH SOLN 0.5 MG/2.5 ML VIAL INHALATION ×4 (02:09→20:07)
[2019-11-29] MEDS: LORazepam 0.5 MG TABLET PO ×4 (04:43→23:17)
[2019-11-29] MEDS: methylPREDNISolone SOD SUCC 40 MG VIAL IV PUSH ×2 (05:26→21:41)
[2019-11-29 05:35] LABS: Basophils Percent Auto 0.1 % (0.2-1.2); Hematocrit 41.8 % (37.0-47.0); Hemoglobin 13.4 g/dL (12.0-15.0); Immature Granulocyte Absolute 0.05 K/mm3 (0.00-0.031); Immature Granulocyte Percent A 0.5 % (0-0.5); Lymphocytes Absolute Auto 0.78 K/mm3 (0.9-3.2); Lymphocytes Percent Auto 7.8 % (18.3-44.2); Mean Corpuscular HGB Conc 32.1 g/dl (32-36); Mean Corpuscular Hemoglobin 31.7 pg (26-34); Mean Corpuscular Volume 98.8 fl (80-100); Mean Platelet Volume 11.9 fl (7.4-10.4); Monocytes Absolute Auto 0.4 K/mm3 (0.1-0.6); Monocytes Percent Auto 4.4 % (2.6-8.5); Neutrophils Absolute Auto 8.7 K/mm3 (1.3-6.7); Neutrophils Percent Auto 87.2 % (45.5-73.1); Platelet Count Result 239 k/mm3 (150-375); Red Blood Count 4.23 M/mm3 (4.2-5.4); Red Cell Distribution Width 12.2 % (11.5-14.5); White Blood Count 9.9 K/mm3 (4.5-10.0)
[2019-11-29 05:58] LABS: Anion Gap 9.5 mmol/L (7-16); Blood Urea Nitrogen 21 mg/dL (7-17); Calcium 8.8 mg/dL (8.4-10.2); Carbon Dioxide 38 mmol/L (22-30); Chloride 92 mmol/L (98-107); Estimated CRCL calculation 75 ml/min; Estimated Glomerular Filt Rate > 60; Glucose 166 mg/dL (65-105); Magnesium 2.2 mg/dL (1.6-2.3); Potassium 4.5 mmol/L (3.4-5.0); Sodium 135 mmol/L (137-145)
[2019-11-29] MEDS: guaiFENesin 12 HR 600 MG TABCR PO ×2 (09:11→21:41)
[2019-11-29] MEDS: busPIRone HCL 10 MG TABLET PO ×2 (09:11→21:40)
[2019-11-29] MEDS: NICOTINE (*PBKC) 14 MG PATCH 1 PATCH TRANSDERM (09:12)
[2019-11-29] MEDS: APIXABAN 5 MG TABLET PO ×2 (09:12→17:12)
[2019-11-29] MEDS: GABAPENTIN 300 MG CAPSULE PO ×3 (09:12→17:11)
[2019-11-29] MEDS: VENLAFAXINE HCL XR 75 MG CAP.ER.24H PO (09:12)
[2019-11-29] MEDS: METOPROLOL TARTRATE 25 MG TABLET PO ×2 (09:12→21:41)
[2019-11-29] MEDS: DOCUSATE SODIUM 100 MG CAPSULE PO (09:12)
[2019-11-29] MEDS: ACETAMINOPHEN 325 MG TABLET 650 MG PO (09:13)
[2019-11-29] MEDS: polyethylene glycoL 3350 17 GM POWD.PACK PO (09:13)
[2019-11-29] MEDS: DORNASE ALFA INH SOLN 1 MG/ML 2.5 ML AMP 2.5 MG INHALATION ×2 (09:28→20:10)
--- NOTE | 2019-11-29 13:17 | PM.IMPN ---
Progress Note: A&P Assessment and Plan (1) COPD exacerbation: Code(s): J44.1 - Chronic obstructive pulmonary disease with (acute) exacerbation Status: Acute Assessment and Plan: Patient with COPD presents with worsening shortness of breath, wheezing. Today she continues on IV solu-medrol, wean dose again today; nebulized bronchodilator thearpy; supplemental O2. Smoking cessation is imperative. Lung mass and anxiety may be contributing. Some improvement from yesterday with florinda valerio. Today she reports feeling better but still has dyspnea on exertion which is worse than her baseline. Will wean her Solu-Medrol down to IV 40 mg q.12 hours Will follow-up with pulmonology as an outpatient will see how the patient is feeling tomorrow and consider discharge home if she is stable and otherwise back to her baseline. (2) Lung mass: Code(s): R91.8 - Other nonspecific abnormal finding of lung field Status: Acute Assessment and Plan: Chest CT shows multiple lung nodules with largest being 3.1cm in left upper lobe. May be contributing to her symptoms. She describes she knows about this mass and is aware it could be malignant. Her PCP has tried to arrange PET scan but she is having issues with her insurance and has not been able to get this performed yet. Also was due to have thyroid nodules biopsied soon. At this point given her respiratory status, plan is to continue follow up in the outpatient setting for these biopsies until her breathing is under better control. (3) Chronic respiratory failure with hypoxia: Code(s): J96.11 - Chronic respiratory failure with hypoxia Status: Chronic Assessment and Plan: Tolerating her home O2 requirement today. She reports using 2L/min at rest and 3L with activity. (4) Chest pain: Qualifiers: Chest pain type: unspecified Qualified Code(s): R07.9 - Chest pain, unspecified Code(s): R07.9 - Chest pain, unspecified Status: Acute Assessment and Plan: [place] to be related to COPD or lung mass. Trop negative x 3. Will monitor. Denies chest pain. (5) Thyroid nodule: Code(s): E04.1 - Nontoxic single thyroid nodule Status: Chronic Assessment and Plan: Thyroid US 1 month ago showed Multinodular goiter. There are 2 TI RADS 4 nodules measuring 2.1 cm and 1.7 cm in the left thyroid lobe which would meet criteria for ultrasound-guided biopsy. She is scheduled to have this biopsy soon outpatient. She has had thyroid nodules biopsied in 07/2018 - pathology nondiagnostic. 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 Continue her home Eliquis. (7) Tobacco dependence: Code(s): F17.200 - Nicotine dependence, unspecified, uncomplicated Status: Chronic Assessment and Plan: Smoking cessation advised. Nicotine patch ordered. Time Spent With Patient Time with patient: 25 - 35 minutes Subjective Date/time seen: 11/29/19 13:17 Interval history: Date of service 11/29/2019: patient states her breathing has improved today and she is currently on her home oxygen at 2 L via nasal cannula. She still having some worsening dyspnea on exertion when she is walking to the bathroom. She reports improvement of her wheezing as well. 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 she reports a chronic cough which is sometimes productive in the morning yellow /green and then becomes more clear throughout the day. Denies any changes to her cough for sputum. She denies any chest pain, fever , chills, nausea, vomiting, abdominal pa
[2019-11-29] MEDS: SALINE 0.65% NAS SOLN 44 ML BTL 1 SPRAY NASAL (17:11)
[2019-11-29] MEDS: SODIUM CHLORIDE NASAL GEL 14.1 GM 1 APPLIC NASAL (21:43)
[2019-11-30] VITALS (20 sets, daily range): BP systolic 115–129; BP diastolic 81–84; PULSE 79–101; RESP 12–20; TEMP 36.2–36.8; O2SAT 86–98
[2019-11-30] MEDS: IPRATROPIUM BR 0.02% INH SOLN 0.5 MG/2.5 ML VIAL INHALATION ×4 (02:35→20:57)
[2019-11-30] MEDS: ALBUTEROL SULFATE NEB 2.5 MG/0.5 ML INH 5 MG INHALATION ×4 (02:35→20:57)
[2019-11-30] MEDS: LORazepam 0.5 MG TABLET PO ×3 (05:18→17:36)
[2019-11-30 05:51] LABS: Anion Gap 8.8 mmol/L (7-16); Blood Urea Nitrogen 22 mg/dL (7-17); Calcium 8.6 mg/dL (8.4-10.2); Carbon Dioxide 35 mmol/L (22-30); Chloride 91 mmol/L (98-107); Estimated CRCL calculation 86 ml/min; Estimated Glomerular Filt Rate > 60; Glucose 196 mg/dL (65-105); Potassium 4.8 mmol/L (3.4-5.0); Sodium 130 mmol/L (137-145)
[2019-11-30] MEDS: DORNASE ALFA INH SOLN 1 MG/ML 2.5 ML AMP 2.5 MG INHALATION ×2 (08:09→20:57)
[2019-11-30] MEDS: GABAPENTIN 300 MG CAPSULE PO ×3 (08:26→17:32)
[2019-11-30] MEDS: DOCUSATE SODIUM 100 MG CAPSULE PO (08:26)
[2019-11-30] MEDS: APIXABAN 5 MG TABLET PO ×2 (08:26→17:32)
[2019-11-30] MEDS: VENLAFAXINE HCL XR 75 MG CAP.ER.24H PO (08:26)
[2019-11-30] MEDS: busPIRone HCL 10 MG TABLET PO ×2 (08:26→20:30)
[2019-11-30] MEDS: ACETAMINOPHEN 325 MG TABLET 650 MG PO (08:26)
[2019-11-30] MEDS: polyethylene glycoL 3350 17 GM POWD.PACK PO (08:26)
[2019-11-30] MEDS: NICOTINE (*PBKC) 14 MG PATCH 1 PATCH TRANSDERM (08:26)
[2019-11-30] MEDS: methylPREDNISolone SOD SUCC 40 MG VIAL IV PUSH ×2 (08:27→20:31)
[2019-11-30] MEDS: METOPROLOL TARTRATE 25 MG TABLET PO ×2 (08:27→20:31)
[2019-11-30] MEDS: guaiFENesin 12 HR 600 MG TABCR PO ×2 (08:28→20:31)
--- NOTE | 2019-11-30 11:49 | PM.IMPN ---
Progress Note: A&P Assessment and Plan (1) COPD exacerbation: Code(s): J44.1 - Chronic obstructive pulmonary disease with (acute) exacerbation Status: Acute Assessment and Plan: Patient with COPD presents with worsening shortness of breath, wheezing. Today she continues on IV solu-medrol, wean dose again today; nebulized bronchodilator thearpy; supplemental O2. Smoking cessation is imperative. Lung mass and anxiety may be contributing. Today she reports feeling better but still has dyspnea on exertion which is worse than her baseline. Continue her on Solu-Medrol down to IV 40 mg q.12 hour I talked to pulmonology, Dr. Freitas, about the patient and since she is almost back to her baseline he feels that follow-up would be better at this time an aching continue to work with her on getting her PET scan set up for her lung mass as well as more adjustments to her COPD regimen if necessary. Will follow-up with pulmonology as an outpatient will see how the patient is feeling tomorrow and consider discharge home if she is stable and otherwise back to her baseline. (2) Lung mass: Code(s): R91.8 - Other nonspecific abnormal finding of lung field Status: Acute Assessment and Plan: Chest CT shows multiple lung nodules with largest being 3.1cm in left upper lobe. May be contributing to her symptoms. She describes she knows about this mass and is aware it could be malignant. Her PCP has tried to arrange PET scan but she is having issues with her insurance and has not been able to get this performed yet. Also was due to have thyroid nodules biopsied soon. At this point given her respiratory status, plan is to continue follow up in the outpatient setting for these biopsies until her breathing is under better control. (3) Chronic respiratory failure with hypoxia: Code(s): J96.11 - Chronic respiratory failure with hypoxia Status: Chronic Assessment and Plan: Tolerating her home O2 requirement today. She reports using 2L/min at rest and 3L with activity. Will order a home oxygen evaluation to ensure she is using the correct oxygenation at rest and with exertion (4) Chest pain: Qualifiers: Chest pain type: unspecified Qualified Code(s): R07.9 - Chest pain, unspecified Code(s): R07.9 - Chest pain, unspecified Status: Acute Assessment and Plan: [place] to be related to COPD or lung mass. Trop negative x 3. Will monitor. Denies chest pain. (5) Thyroid nodule: Code(s): E04.1 - Nontoxic single thyroid nodule Status: Chronic Assessment and Plan: Thyroid US 1 month ago showed Multinodular goiter. There are 2 TI RADS 4 nodules measuring 2.1 cm and 1.7 cm in the left thyroid lobe which would meet criteria for ultrasound-guided biopsy. She is scheduled to have this biopsy soon outpatient. She has had thyroid nodules biopsied in 07/2018 - pathology nondiagnostic. (6) Chronic anticoagulation: Code(s): Z79.01 - skilled nursing (current) use of anticoagulants Status: Chronic Assessment and Plan: For treatment of bilateral pulmonary emboli about 1 year ago per patient. Continue her home Eliquis. (7) Tobacco dependence: Code(s): F17.200 - Nicotine dependence, unspecified, uncomplicated Status: Chronic Assessment and Plan: Smoking cessation advised. Nicotine patch ordered. Time Spent With Patient Time with patient: 25 - 35 minutes Subjective Date/time seen: 11/30/19 11:49 Interval history: Date of service 11/30/2019: The patient reports feeling slightly better today. She does not have any shortness of breath at rest but continues to have some dyspnea on exertion and is not feel back to baseline at this time. H
--- NOTE | 2019-11-30 15:09 | PCRCNOTE ---
HOME O2 EVAL COMPLETE, NO CHANGES TO CURRENT HOME SETTINGS. 2L AT REST AND 3L WITH ACTIVITY
[2019-11-30] MEDS: SODIUM CHLORIDE NASAL GEL 14.1 GM 1 APPLIC NASAL (20:31)
[2019-11-30] MEDS: BISACODYL 10 MG SUPPOSITORY RECTAL (22:11)
[2019-12-01] VITALS (9 sets, daily range): BP systolic 117–133; BP diastolic 84–93; PULSE 78–102; RESP 16–20; TEMP 36.7–36.8; O2SAT 93–99
[2019-12-01] MEDS: LORazepam 0.5 MG TABLET PO ×3 (00:03→12:12)
[2019-12-01] MEDS: IPRATROPIUM BR 0.02% INH SOLN 0.5 MG/2.5 ML VIAL INHALATION ×3 (01:48→14:43)
[2019-12-01] MEDS: ALBUTEROL SULFATE NEB 2.5 MG/0.5 ML INH 5 MG INHALATION ×3 (01:48→14:43)
[2019-12-01 05:51] LABS: Blood Urea Nitrogen 20 mg/dL (7-17); Carbon Dioxide > 40 mmol/L (22-30); Chloride 88 mmol/L (98-107); Estimated CRCL calculation 75 ml/min; Estimated Glomerular Filt Rate > 60; Glucose 162 mg/dL (65-105); Potassium 4.8 mmol/L (3.4-5.0); Sodium 131 mmol/L (137-145)
[2019-12-01] MEDS: GABAPENTIN 300 MG CAPSULE PO ×2 (08:51→12:13)
[2019-12-01] MEDS: APIXABAN 5 MG TABLET PO (08:51)
[2019-12-01] MEDS: DOCUSATE SODIUM 100 MG CAPSULE PO (08:51)
[2019-12-01] MEDS: VENLAFAXINE HCL XR 75 MG CAP.ER.24H PO (08:51)
[2019-12-01] MEDS: busPIRone HCL 10 MG TABLET PO (08:51)
[2019-12-01] MEDS: guaiFENesin 12 HR 600 MG TABCR PO (08:52)
[2019-12-01] MEDS: BISACODYL 5 MG TABLET EC PO (08:52)
[2019-12-01] MEDS: METOPROLOL TARTRATE 25 MG TABLET PO (08:52)
[2019-12-01] MEDS: NICOTINE (*PBKC) 14 MG PATCH 1 PATCH TRANSDERM (08:52)
[2019-12-01] MEDS: SALINE 0.65% NAS SOLN 44 ML BTL 1 SPRAY NASAL (08:53)
[2019-12-01] MEDS: polyethylene glycoL 3350 17 GM POWD.PACK PO (08:53)
[2019-12-01] MEDS: methylPREDNISolone SOD SUCC 40 MG VIAL IV PUSH (08:53)
[2019-12-01] MEDS: DORNASE ALFA INH SOLN 1 MG/ML 2.5 ML AMP 2.5 MG INHALATION (09:02)
--- NOTE | 2019-12-01 11:52 | PM.DS ---
DS: Admitting Diagnosis Admitting Diagnosis Admitting Diagnosis: Chronic obstructive pulmonary disease with (acute) exacerbation DS: Discharge Diagnosis Discharge Diagnosis (1) COPD exacerbation: Code(s): J44.1 - Chronic obstructive pulmonary disease with (acute) exacerbation Status: Acute Assessment and Plan: Patient with COPD presents with worsening shortness of breath, wheezing. She reports improvement of her breathing and with exertion. Respiratory therapy came in for home oxygen evaluation states she is at her baseline oxygen with 2 L at rest and 3 L with exertion. Smoking cessation is imperative. Lung mass and anxiety may be contributing. Will switch her to oral prednisone taper upon discharge and have her continue with her albuterol nebulizer treatments I talked to pulmonology, Dr. Freitas, about the patient and since she is almost back to her baseline he feels that follow-up would be better at this time an aching continue to work with her on getting her PET scan set up for her lung mass as well as more adjustments to her COPD regimen if necessary. Will follow-up with pulmonology as an outpatient the patient understands and agrees with the plan all questions answered. (2) Lung mass: Code(s): R91.8 - Other nonspecific abnormal finding of lung field Status: Acute Assessment and Plan: Chest CT shows multiple lung nodules with largest being 3.1cm in left upper lobe. May be contributing to her symptoms. She describes she knows about this mass and is aware it could be malignant. Her PCP has tried to arrange PET scan but she is having issues with her insurance and has not been able to get this performed yet. Also was due to have thyroid nodules biopsied soon. At this point given her respiratory status, plan is to continue follow up in the outpatient setting for these biopsies until her breathing is under better control. Will give her information to follow-up with Dr. Stinsno, oncology who can help also facilitate the workup and further evaluation (3) Chronic respiratory failure with hypoxia: Code(s): J96.11 - Chronic respiratory failure with hypoxia Status: Chronic Assessment and Plan: Tolerating her home O2 requirement today. continue with 2 L at rest and 3 with exertion. (4) Chest pain: Qualifiers: Chest pain type: unspecified Qualified Code(s): R07.9 - Chest pain, unspecified Code(s): R07.9 - Chest pain, unspecified Status: Acute Assessment and Plan: [place] to be related to COPD or lung mass. Trop negative x 3. Will monitor. Denies chest pain. (5) Thyroid nodule: Code(s): E04.1 - Nontoxic single thyroid nodule Status: Chronic Assessment and Plan: Thyroid US 1 month ago showed Multinodular goiter. There are 2 TI RADS 4 nodules measuring 2.1 cm and 1.7 cm in the left thyroid lobe which would meet criteria for ultrasound-guided biopsy. She is scheduled to have this biopsy soon outpatient. She has had thyroid nodules biopsied in 07/2018 - pathology nondiagnostic. (6) Chronic anticoagulation: Code(s): Z79.01 - [facility] (current) use of anticoagulants Status: Chronic Assessment and Plan: For treatment of bilateral pulmonary emboli about 1 year ago per patient. Continue her home Eliquis. (7) Tobacco dependence: Code(s): F17.200 - Nicotine dependence, unspecified, uncomplicated Status: Chronic Assessment and Plan: Smoking cessation advised. Nicotine patch ordered. (8) Constipated: Code(s): K59.00 - Constipation, unspecified Status: Acute Assessment and Plan: she is receiving narcotic pain medications and has some constipation since arrival. We
--- NOTE | 2019-12-01 14:44 | PC.NURSE ---
Entered patient's room after following a smell from the [address]. Patient in bathroom at this time. Patient is currently independent in room. Knocked on bathroom door and opened to check on patient. A smokey haze filled the air, and patient was sitting on toilet with arms tucked under sides. Patient asked for us to shut the door she was trying to have a bowel movement. When questioned about the smell of smoke, the patient states it was the smell of the essential oil in her deodorant and denies any smoking. Discharge is ordered and patient will be leaving the floor soon. Charge nurse aware of situation, flooring grader notified.
== END 2019-12-01 17:52 | disposition home or self-care (01) | DRG 140 ==
LOC: ANHED 03:52 → ANH2MED 03:57
PROVIDERS: Physician Assistant; Admitting Provider Family Medicine; Emergency Provider Emergency Medicine; PCP Family Medicine; Visit Provider Physician Assistant
DX: J43.9 Emphysema, unspecified (principal); R91.8 Other nonspecific abnormal finding of lung field; G47.30 Sleep apnea, unspecified; J96.11 Chronic respiratory failure with hypoxia; E04.1 Nontoxic single thyroid nodule; F17.210 Nicotine dependence, cigarettes, uncomplicated; K59.00 Constipation, unspecified; K21.9 Gastro-esophageal reflux disease without esophagitis; F41.8 Other specified anxiety disorders; Z99.81 Dependence on supplemental oxygen; Z79.01 Long term (current) use of anticoagulants; Z86.718 Personal history of other venous thrombosis and embolism; Z86.711 Personal history of pulmonary embolism
CPT/HCPCS: 36415; 36600; 71045; 71260; 80048; 82805; 83735; 84484; 85025; 85610; 85730; 93005; 94618; 94640; 94667; 94668; 96372; 96374; 96376; 99285; A9270; G0378; G0379; J1650; J2920; J2930; Q9967

== ENCOUNTER 2019-12-19 13:19 | Outpatient (CLI) | payer OTHER, SELFPAY ==
--- NOTE | ~2019-12-19 | US_ITS ---
EXAMINATION: US FNA w image guidance, US FNA additional DATE: 12/19/2019 14:20 INDICATION: Left thyroid nodules TECHNIQUE: A time-out was performed to verify the patient's name, date of , and procedure to be performed . The procedure and its benefits and risks were discussed with the patient. Risks specifically discus sed included bleeding and infection. The patient understood the risks and agreed to proceed. The neck was prepped and draped in the usual sterile manner. 6 mL 1% lidocaine was used for local anesthesia . Attention was first turned to the more cephalad hypoechoic nodule. 5 passes were made with a 25G ne edle into the lesion. Appropriate needle location was documented with continuous sonographic guidanc e. Attention was then turned to the more caudal isoechoic nodule. 6 passes were made with a 20 5G nee dle into the lesion with ultrasound guidance. A sterile bandage was applied. There were no immediate complications. FINDINGS: Grayscale ultrasound images demonstrate biopsy needles advanced into first a 1.8 cm solid hypoechoic nodules in the superior left thyroid. Subsequent images demonstrate biopsy needles advanced into a 1. 8 cm predominantly solid isoechoic nodule at the inferior left thyroid. IMPRESSION: 1. Successful ultrasound-guided fine needle aspiration of a 1.8 cm hypoechoic predominant solid nodu le in the superior left thyroid. 2. Successful ultrasound-guided fine-needle aspiration of a 1.8 cm isoechoic predominantly solid nodu le in the inferior left thyroid. Reviewed, dictated and finalized at location A. IMPRESSION: 1. Successful ultrasound-guided fine needle aspiration of a 1.8 cm hypoechoic predominant solid nodule in the superior left thyroid. 2. Successful ultrasound-guided fine-needle aspiration of a 1.8 cm isoechoic pr edominantly solid nodule in the inferior left thyroid.
== END 2019-12-19 13:20 | disposition home or self-care (01) ==
PROVIDERS: PCP Family Medicine; Visit Provider Nurse Practitioner
DX: E04.1 Nontoxic single thyroid nodule (principal)
CPT/HCPCS: 10005; 10006; 88173; 88305

== ENCOUNTER 2020-01-18 11:01 | Outpatient (CLI) | payer OTHER, SELFPAY ==
--- NOTE | ~2020-01-18 | PE_ITS ---
EXAMINATION: PET skull to mid thigh DATE: 01/18/2020 13:00 INDICATION: Lung mass. TECHNIQUE: Blood glucose level was 144 mg/dL. 9.047 mCi of 18-fluorodeoxyglucose (18-FDG) was adminis tered i.v. Low dose computed tomography (CT) images were acquired from the base of the brain to the p roximal thighs for attenuation correction and anatomic localization. Automated exposure control was e mployed. Dose-length product (DLP) was 513 mGy-cm. Positron emission tomography (PET) images were acq uired in the same distribution. COMPARISON: Chest CT 11/26/2019, 08/13/2016 FINDINGS: Head/neck: There are no pathologically enlarged lymph nodes. There is increased activity in much of t he musculature of the neck without CT correlate, likely physiologic. Chest: There is severe emphysema. There is mild scarring at the lung apices. There is an 11 mm nodule in right upper lobe with maximum SUV of 0.8. There are several scattered nodules in the lungs measur ing up to 6 mm without increased activity at least most of which are stable from 07/2516. There are ai rspace opacities in left upper lobe measuring up to 6.0 x 3.2 cm with maximum SUV of 4.2. No pleural effusion. The heart size is normal. No pericardial effusion. Abdomen/pelvis/proximal thighs: The liver, gallbladder, spleen, pancreas, adrenal glands, and kidneys are normal. There are no dilated loops of bowel. There are no pathologically enlarged lymph nodes. T here is no free intraperitoneal fluid. There is no osseous malignancy. IMPRESSION: 1. Worsened airspace opacities in left upper lobe with increased activity, likely a combination of pr imary bronchogenic carcinoma and pneumonia. Given her home oxygen use, she is likely not a candidate for CT-guided biopsy. 2. Pulmonary nodules measuring up to 11 mm without increased activity, likely benign. 3. Severe emphysema. Reviewed, dictated and finalized at location A. IMPRESSION: 1. Worsened airspace opacities in left upper lobe with increased activity, like ly a combination of primary bronchogenic carcinoma and pneumonia. Given her kermit e oxygen use, she is likely not a candidate for CT-guided biopsy. 2. Pulmonary nodules measuring up to 11 mm without increased activity, likely b enign. 3. Severe emphysema.
[2020-01-18 11:25] LABS: Glucose Point of Care 144 (65-105)
== END 2020-01-18 11:02 | disposition home or self-care (01) ==
PROVIDERS: PCP Family Medicine; Visit Provider Internal Medicine Critical Care Medicine
DX: R91.1 Solitary pulmonary nodule (principal)
CPT/HCPCS: 78815; A9552

== ENCOUNTER 2020-02-05 14:44 | Inpatient (IN) | payer OTHER, SELFPAY ==
[2020-02-05] VITALS (13 sets, daily range): BP systolic 101–176; BP diastolic 69–91; PULSE 70–95; RESP 11–34; TEMP 36.4; O2SAT 93–98; BMI 24.9
--- NOTE | ~2020-02-05 | XR_ITS ---
EXAMINATION: XR chest 1V portable DATE: 02/05/2020 16:09 INDICATION: Emphysema presenting with shortness of breath and productive cough TECHNIQUE: frontal view of the chest was obtained. COMPARISON: Chest radiograph and CT dated 11/26/2019 FINDINGS: Emphysema with increased lucency and architectural distortion most prominent in the left upper and ri ght mid and upper lung zones. Persistent spiculated left upper lobe mass. No new airspace opacities, pleural effusion or pneumothorax. The cardiomediastinal silhouette is normal. IMPRESSION: 1. Severe emphysema with unchanged spiculated left upper lobe mass which remains concerning for prima ry bronchogenic carcinoma. Reviewed, dictated and finalized at location B. IMPRESSION: 1. Severe emphysema with unchanged spiculated left upper lobe mass which remain s concerning for primary bronchogenic carcinoma.
--- NOTE | ~2020-02-05 | XR_ITS ---
EXAMINATION: XR chest 1V portable DATE: 02/07/2020 05:26 INDICATION: Acute hypercapnic respiratory failure. TECHNIQUE: A single frontal view of the chest was obtained. COMPARISON: Chest single view 02/05/2020, PET CT 01/18/2020 FINDINGS: The lungs are hyperexpanded with lucencies, consistent with emphysema. Again seen are airsp mell opacities in left upper lobe. No pleural effusion or pneumothorax. The heart size is normal. IMPRESSION: 1. Severe emphysema. 2. Stable airspace opacities in left upper lobe suspicious for malignancy. Reviewed, dictated and finalized at location A.
--- NOTE | ~2020-02-05 | XR_ITS ---
EXAMINATION: XR chest 1V portable DATE: 02/08/2020 06:06 INDICATION: Chronic obstructive pulmonary disease exacerbation. Hypercapnic respiratory failure. TECHNIQUE: A single frontal view of the chest was obtained. COMPARISON: Chest single view 02/07/2020, PET/CT 01/18/2020 FINDINGS: There are lucencies in the lungs, consistent with emphysema. There is a mass in left upper lobe. No pleural effusion or pneumothorax. The heart size is normal. IMPRESSION: 1. Severe emphysema. 2. Mass in left lung upper lobe suspicious for malignancy. Reviewed, dictated and finalized at location A.
--- NOTE | 2020-02-05 14:47 | ECG_ITS ---
Measurements Intervals [place] Rate: 95 P: 82 WY: 138 QRS: 52 QRSD: 93 T: 54 QT: 332 QTc: 418 Interpretive Statements SINUS RHYTHM BASELINE ARTIFACT- I, II, III, AVL, AVF, V2-V3 NORMAL ECG Electronically Signed On 02-05-2020 15:00:14 CDT by Dick Woodard D.O.
--- NOTE | 2020-02-05 14:48 | ED.SOB ---
HPI - SOB/Dyspnea General Chief Complaint: Shortness of Breath/Dyspnea Stated Complaint: SOB, CP Time Seen by Provider: 02/05/20 14:47 Source: patient and EMS Mode of arrival: EMS Limitations: no limitations History of Present Illness HPI Narrative: Patient is a 54-year-old female with a history of COPD, hypertension, chronic chest pain who presents for evaluation of shortness of breath. Patient reports increased shortness of breath over the past 12 hours, as well as productive cough and left-sided chest pain. She reports the pain is been intermittent for many months, seems to come and go. She does report it is over the left side of her chest, described as a pressure without radiation to the back, jaw or shoulder. Patient reports that she does not have any more inhaler treatments at home, though she has not been able to utilize those. Dr. Cameron's office whom she follows with for primary care had placed her on prednisone for 5 days which she finished yesterday. Patient reports bilateral leg swelling. No calf pain or redness. Patient is still smoking approximately half pack per day. She typically is on 2 to 3 L throughout the day but has required up to 5 L today. Related Data Home Medications Medication Instructions Recorded Confirmed Eliquis 5 mg PO BID 04/30/19 11/26/19 Incruse Ellipta 1 inh INHALATION DAILY 04/30/19 11/26/19 acetaminophen 650 mg PO Q4-6H PRN 04/30/19 11/26/19 budesonide-formoterol [Symbicort] 2 puff INHALATION Q12H 04/30/19 11/26/19 gabapentin 300 mg PO TID 04/30/19 11/26/19 hydroxyzine pamoate 50 mg PO QID PRN 04/30/19 11/26/19 tizanidine 4 mg PO TID 04/30/19 11/26/19 venlafaxine 75 mg PO DAILY 04/30/19 11/26/19 buspirone 10 mg PO QID PRN 11/26/19 11/26/19 metoprolol tartrate 25 mg PO BID 11/26/19 11/26/19 Allergies Allergy/AdvReac Type Severity Reaction Status Date / Time nitrofurantoin Allergy Unknown HIVES Verified 08/10/19 01:26 oxycodone Allergy Unknown NAUSEA, Verified 08/10/19 01:26 HEART RACING Review of Systems Review of Systems: Narrative: CONSTITUTIONAL: Denies fever, chills EYES: Denies visual changes, redness, or discharge. ENT: Reports rhinorrhea and congestion, denies sore throat CARDIOVASCULAR: Reports left-sided chest pain and bilateral lower extremity edema RESPIRATORY: Reports productive cough and shortness of breath GASTROINTESTINAL: Denies abdominal pain, nausea, vomiting, or diarrhea. GENITOURINARY: Denies dysuria or hematuria. SKIN: Denies rash or itching. MUSCULOSKELETAL: Denies back pain, joint pain, or myalgia. NEUROLOGIC: Denies headache, numbness, or weakness. [facility] Past Medical History Medical History Anemia Anxiety Arm fracture, left Arthritis Back pain Bronchitis Chronic respiratory failure COPD (chronic obstructive pulmonary disease) Depression Emphysema of lung Foot fracture, right GERD (gastroesophageal reflux disease) History of pulmonary embolus (PE) Inguinal hernia Kidney stones On home O2 2 L at rest and 3 L with activity Pneumonia Pulmonary embolism Pulmonary hypertension Sleep apnea Tobacco abuse UTI (urinary tract infection) Surgical History Surgical History Hx of arthroscopy of left knee Hx of elbow surgery lt elbow Hx of inguinal hernia repair Hx of tonsillectomy Hx of tubal ligation Family History Family History Father , at 46 of lung CA Lung cancer Mother Cerebrovascular accident Grandparent Diabetes mellitus Sibling Lung cancer Social History Social History Smoking packs per day: 0.5 Smoking cigarettes per day: 10.0 Years smoked: 30 Smoking pack-years: 15.00 Smoking status: Current every day smoker Tobacco type: cigarettes Second hand t
[2020-02-05 15:04] LABS: Basophils Absolute Auto 0.1 K/mm3 (0.0-0.1); Basophils Percent Auto 0.7 % (0.2-1.2); Eosinophils Absolute Auto 0.3 K/mm3 (0-0.3); Hematocrit 41.2 % (37.0-47.0); Hemoglobin 12.8 g/dL (12.0-15.0); Immature Granulocyte Absolute 0.04 K/mm3 (0.00-0.031); Immature Granulocyte Percent A 0.2 % (0-0.5); Lymphocytes Absolute Auto 4.13 K/mm3 (0.9-3.2); Lymphocytes Percent Auto 24.7 % (18.3-44.2); Mean Corpuscular HGB Conc 31.1 g/dl (32-36); Mean Corpuscular Hemoglobin 32.3 pg (26-34); Monocytes Absolute Auto 1.5 K/mm3 (0.1-0.6); Monocytes Percent Auto 8.7 % (2.6-8.5); Neutrophils Absolute Auto 10.7 K/mm3 (1.3-6.7); Neutrophils Percent Auto 63.7 % (45.5-73.1); Platelet Count Result 299 k/mm3 (150-375); Red Blood Count 3.96 M/mm3 (4.2-5.4); Red Cell Distribution Width 12.2 % (11.5-14.5); White Blood Count 16.7 K/mm3 (4.5-10.0)
[2020-02-05 15:18] LABS: Anion Gap 2.99999 mmol/L (8-16); Blood Urea Nitrogen 22 mg/dL (7-17); Calcium 8.9 mg/dL (8.4-10.2); Carbon Dioxide > 40 mmol/L (22-30); Chloride 94 mmol/L (98-107); Estimated CRCL calculation 86 ml/min; Estimated Glomerular Filt Rate > 60; Glucose 155 mg/dL (65-105); INR 0.9; Sodium 137 mmol/L (137-145)
[2020-02-05] MEDS: IPRATROPIUM BR 0.02% INH SOLN 0.5 MG/2.5 ML VIAL 2 MG INHALATION (15:18)
[2020-02-05] MEDS: ALBUTEROL SULFATE NEB 2.5 MG/0.5 ML INH 20 MG INHALATION (15:18)
[2020-02-05 15:19] LABS: Alveolar/Arterial O2 Gradient 32.2 mmHg; Carboxyhemoglobin 8.3 % THb (0-2.0); Fractional Inspired Oxygen 32 %; HCO3 ABG 39.1 mEq/l (22.0-26.0); Methemoglobin ABG 0.3 %THb (0-1.5); Oxygen Content ABG 16.2 %vol (16.0-22.0); Oxygen Saturation ABG 95.9 % (95.0-100.0); Oxyhemoglobin 88.5 % THb (90.0-100.0); PO2 ABG 95.1 mmHg (80.0-100.0); PO2 FiO2 Ratio Arterial Blood 2.97 %; Reduced Hemoglobin 2.9 %THb (0-5.0); Total Hemoglobin 12.9 g/dL (12.0-18.0)
[2020-02-05 15:19] LABS: Partial Thromboplastin Time 28.9 SECONDS (22.3-36.8)
[2020-02-05 15:20] LABS: pH ABG 7.274 (7.350-7.450)
[2020-02-05 15:21] LABS: Device NASAL CANNULA; Modified Allen's Test Pass; PCO2 ABG 86.2 mmHg (35.0-45.0); Site Drawn RIGHT RADIAL
[2020-02-05 15:22] LABS: D Dimer 0.34 ug/mL (<0.48)
[2020-02-05 15:27] LABS: Troponin I < 0.012 ng/mL (0.000-0.034)
[2020-02-05] MEDS: ONDANSETRON INJ 4 MG/2 ML VIAL IV PUSH (15:32)
[2020-02-05] MEDS: MORPHINE SULFATE (*CRX) 4 MG/ML INJ IV PUSH (15:32)
[2020-02-05] MEDS: SODIUM CHLORIDE 0.9% IV 500 ML 999 ML IV CONT (15:32)
[2020-02-05] MEDS: methylPREDNISolone SOD SUCC 125 MG VIAL IV PUSH (15:32)
[2020-02-05 15:39] LABS: Lactic Acid Reflex 0.8 mmol/L (0.7-2.1)
[2020-02-05 15:48] LABS: NT Pro B Type Natriuretic Pept 782 PG/ML (5-100)
[2020-02-05] MEDS: ASPIRIN 81 MG CHEWABLE TABLET 324 MG PO (16:09)
[2020-02-05] MEDS: MAGNESIUM SULF 2 GM/WATER 50ML 2 GM/50 ML BAG IVPB (16:23)
[2020-02-05 16:45] LABS: Alveolar/Arterial O2 Gradient 56.7 mmHg; Base Excess ABG 0.8 mEq/l (+/-2.0); Fractional Inspired Oxygen 35 %; HCO3 ABG 30.5 mEq/l (22.0-26.0); Methemoglobin ABG 0.3 %THb (0-1.5); Oxygen Content ABG 15.8 %vol (16.0-22.0); Oxygen Saturation ABG 96.2 % (95.0-100.0); Oxyhemoglobin 89.7 % THb (90.0-100.0); PO2 ABG 102.3 mmHg (80.0-100.0); PO2 FiO2 Ratio Arterial Blood 2.92 %; Total Hemoglobin 12.4 g/dL (12.0-18.0)
[2020-02-05 16:46] LABS: Device NON-INVASIVE VENT; Modified Allen's Test Pass; Non-Invasive Expiratory Pressure 5 CMH2O; Non-Invasive Inspiratory Pressure 12 CMH2O; Non-Invasive Vent Rate 4 /MIN; PCO2 ABG 77.9 mmHg (35.0-45.0); Site Drawn RIGHT RADIAL; pH ABG 7.211 (7.350-7.450)
[2020-02-05 18:10] LABS: Troponin I < 0.012 ng/mL (0.000-0.034)
[2020-02-05] MEDS: ALBUTEROL SULFATE NEB 2.5 MG/0.5 ML INH 5 MG INHALATION (19:22)
[2020-02-05] MEDS: IPRATROPIUM BR 0.02% INH SOLN 0.5 MG/2.5 ML VIAL INHALATION (19:22)
[2020-02-05 19:47] LABS: Alveolar/Arterial O2 Gradient 57.2 mmHg; Base Excess ABG 2.9 mEq/l (+/-2.0); Carboxyhemoglobin 6.1 % THb (0-2.0); Fractional Inspired Oxygen 35 %; HCO3 ABG 32.9 mEq/l (22.0-26.0); Methemoglobin ABG 0.3 %THb (0-1.5); Oxygen Content ABG 16.4 %vol (16.0-22.0); Oxygen Saturation ABG 95.8 % (95.0-100.0); Oxyhemoglobin 90.2 % THb (90.0-100.0); PO2 ABG 97.4 mmHg (80.0-100.0); PO2 FiO2 Ratio Arterial Blood 2.78 %; Reduced Hemoglobin 3.4 %THb (0-5.0); Total Hemoglobin 12.8 g/dL (12.0-18.0)
[2020-02-05 19:48] LABS: Device NON-INVASIVE VENT; Modified Allen's Test Pass; PCO2 ABG 81.7 mmHg (35.0-45.0); Site Drawn LEFT RADIAL; pH ABG 7.223 (7.350-7.450)
[2020-02-05 19:49] LABS: Non-Invasive Expiratory Pressure 5 CMH2O; Non-Invasive Inspiratory Pressure 15 CMH2O; Non-Invasive Vent Rate 10 /MIN
[2020-02-05 21:41] LABS: Troponin I < 0.012 ng/mL (0.000-0.034)
--- NOTE | 2020-02-05 22:17 | PM.IMHP ---
H&P: HPI History of Present Illness Date/Time: 02/05/20 22:17 Chief complaint: Hypercapnic respiratory failure, COPD exacerbation Narrative: Sharifa Mosquera is a 54 year old female Who has a history of COPD, hypertension and chronic chest pain. The patient was evaluated for some thyroid nodules which she stated the PET scan did not show anything other than benign nodules and that she does have lung nodules that most likely are cancerous. The patient stated that she is scheduled to have biopsies later on this month. 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 The patient has been having more increased shortness of breath. The patient stated she recently was treated with p.o. steroids and antibiotics. She denies any fever chills but is having a nonproductive cough. She finished her 5 days of prednisone yesterday. She is typically on 2-3 L throughout the day but went up to 5 today. Patient's PET scan that she had performed last month was read as worsened airspace opacities in left biopsy. Pulmonary nodules measuring up to 11 mm without increased active the likely benign. Severe emphysema. Patient was given nebulizer treatments in the emergency room, morphine, magnesium, IV fluids, Solu-Medrol, Zofran azithromycin. At that time the patient was not swabbed for covid 19. my clinical judgment was to check her for COVID-19 since she had increased dyspnea. Patient was placed on a BiPAP machine. Arterial blood gases pH 7.27 for pCO2 was 86.2 repeat was 7.211 and CO2 was 77.9. Another repeat was 7.2-3 with bicarb 81.7. Chest x-ray was read as severe emphysema with unchanged since spiculated left upper lobe mass which remains concerning for primary bronchogenic carcinoma. Patient was admitted to ICU. The podiatry professor had been consulted. Her white count was 16.7. Troponins have been negative x3. The patient was given morphine earlier she has chronic chest pain. Date of service 02/05/2020 Review of Systems Review of Systems: All systems reviewed & are unremarkable except as noted in HPI and below Constitutional: Constitutional: Reports as per HPI and Reports no additional constitutional complaints Eyes: Eyes: Reports as per HPI and Reports no additional eye complaints ENT: Reports system reviewed and no additional complaints, except as documented and Reports Normal hearing present Cardiovascular: Cardiovascular: Reports no additional cardiovascular complaints Respiratory: Respiratory: Reports no additional respiratory complaints and Reports no additional respiratory complaints Gastrointestinal: Gastrointestinal: Reports as per HPI and Reports no additional gastrointestinal complaints Musculoskeletal: Musculoskeletal: Reports no additional musculoskeletal complaints Integumentary/Breasts: Skin/Breast: Reports system reviewed and no additional complaints, except as docu and Reports as per HPI Neurologic: Reports system reviewed and no additional complaints, except as documented, Reports as per HPI and Reports Normal hearing present Psychiatric: Psychiatric: Reports no additional psychiatric complaints and Reports as per HPI Endocrine: Endocrine: Reports no additional endocrine complaints Hematologic/Lymphatic: Hematologic/Lymphatic: Reports no additional hematologic/lymphatic complaints Allergic/Immunologic: Allergic/Immunologic: Reports no additional allergic/immunologic complaints [facility] Past Medical History Medical History (Updated 02/05/20 @ 22:44 by Leanne Lindsey NP) Anemia Anxiety Arm fracture, left Arthritis Back pain Bronchitis Chronic respiratory failure COPD (chronic obstructive pulmonary disease) Depression Emphysema of lung Foot fracture, right GERD (gastroesophageal reflux disease) History of pulmonary embolus (PE) Inguinal hernia Kidney stones On home O2 2 L at rest and 3 L with activity Pneumonia Pulmonary embolism Pulmonary hypertension Pulmonary nodules suspicious for bronchogenic carcinoma Sleep
--- NOTE | 2020-02-05 22:27 | PC.NURSE ---
This patient, Sharifa Mosquera, was admitted to Intensive Care Unit-11 on 02/05/2020 at 2150. Patient/family oriented to hospital policies and general routines including ID bracelet, bed and alarms, visiting hours, pain management, procedures, bathroom and other care routines, personal items, smoking policy, room service/diet, and visiting hours. Valuables list has been completed. Patient moved to ICU 4 at 2215. [facility] [employer] notified of Covid Swab order. Information on how to activate the Rapid Response Team has been discussed. Patient/Family are encouraged to report perceived risks to care and to ask questions if they do not understand what they are told or what they should do.
[2020-02-05] MEDS: MORPHINE SULFATE (*CRX) 2 MG/ML INJ IV PUSH (22:40)
[2020-02-05] MEDS: methylPREDNISolone SOD SUCC 125 MG VIAL 60 MG IV PUSH (23:09)
[2020-02-06] VITALS (25 sets, daily range): BP systolic 120–172; BP diastolic 72–106; PULSE 84–102; RESP 12–28; TEMP 35.9–37; O2SAT 95–100
[2020-02-06] MEDS: NICOTINE (*PBKC) 14 MG PATCH 1 PATCH TRANSDERM ×2 (00:24→08:00)
[2020-02-06] MEDS: IPRATROPIUM BR 0.02% INH SOLN 0.5 MG/2.5 ML VIAL INHALATION ×4 (02:17→21:26)
[2020-02-06] MEDS: ALBUTEROL SULFATE NEB 2.5 MG/0.5 ML INH 5 MG INHALATION ×2 (02:17→08:10)
[2020-02-06 02:45] LABS: Base Excess ABG 8.6 mEq/l (+/-2.0); HCO3 ABG 38.8 mEq/l (22.0-26.0); Oxygen Saturation ABG 94.2 % (95.0-100.0); PCO2 ABG 86.9 mmHg (35.0-45.0); PO2 ABG 83.8 mmHg (80.0-100.0); pH ABG 7.268 (7.350-7.450)
[2020-02-06 02:46] LABS: Oxygen Content ABG 17.1 %vol (16.0-22.0); Oxyhemoglobin 91.7 % THb (90.0-100.0); Total Hemoglobin 13.2 g/dL (12.0-18.0)
[2020-02-06 02:47] LABS: Alveolar/Arterial O2 Gradient 64.7 mmHg; Device NON-INVASIVE VENT; Fractional Inspired Oxygen 35 %; Modified Allen's Test Pass; PO2 FiO2 Ratio Arterial Blood 2.39 %; Site Drawn RIGHT RADIAL
[2020-02-06 02:48] LABS: Non-Invasive Expiratory Pressure 5 CMH2O; Non-Invasive Inspiratory Pressure 15 CMH2O; Non-Invasive Vent Rate 16 /MIN
[2020-02-06] MEDS: MORPHINE SULFATE (*CRX) 2 MG/ML INJ IV PUSH ×4 (04:17→17:58)
[2020-02-06 04:35] LABS: Basophils Percent Auto 0.1 % (0.2-1.2); Hematocrit 38.1 % (37.0-47.0); Hemoglobin 11.9 g/dL (12.0-15.0); Immature Granulocyte Absolute 0.04 K/mm3 (0.00-0.031); Immature Granulocyte Percent A 0.4 % (0-0.5); Lymphocytes Absolute Auto 0.43 K/mm3 (0.9-3.2); Lymphocytes Percent Auto 4.3 % (18.3-44.2); Mean Corpuscular HGB Conc 31.2 g/dl (32-36); Mean Corpuscular Hemoglobin 31.9 pg (26-34); Mean Corpuscular Volume 102.1 fl (80-100); Monocytes Absolute Auto 0.1 K/mm3 (0.1-0.6); Monocytes Percent Auto 0.7 % (2.6-8.5); Neutrophils Absolute Auto 9.5 K/mm3 (1.3-6.7); Neutrophils Percent Auto 94.5 % (45.5-73.1); Platelet Count Result 229 k/mm3 (150-375); Red Blood Count 3.73 M/mm3 (4.2-5.4)
[2020-02-06 06:04] LABS: Alanine Aminotransferase 18 U/L (4-35); Albumin Level 3.4 g/dL (3.5-5.1); Alkaline Phosphatase 70 U/L (38-126); Anion Gap 4.99999 mmol/L (8-16); Aspartate Amino Transferase 23 U/L (14-36); Bilirubin,Total 0.2 mg/dL (0.2-1.3); Blood Urea Nitrogen 16 mg/dL (7-17); CRP 0.6 mg/dL (<1.0); Carbon Dioxide > 40 mmol/L (22-30); Chloride 89 mmol/L (98-107); Estimated CRCL calculation 86 ml/min; Estimated Glomerular Filt Rate > 60; Glucose 185 mg/dL (65-105); Magnesium 2.4 mg/dL (1.6-2.3); Phosphorus 4.6 mg/dL (2.5-4.5); Potassium 5.2 mmol/L (3.4-5.0); Sodium 134 mmol/L (137-145)
[2020-02-06 06:18] LABS: Large Platelets Present; Platelet Estimate Adequate (Adequate); Stomatocytes 1+ (NORMAL)
[2020-02-06] MEDS: methylPREDNISolone SOD SUCC 125 MG VIAL 60 MG IV PUSH ×4 (06:20→23:41)
[2020-02-06 06:42] LABS: Alveolar/Arterial O2 Gradient 62.9 mmHg; Base Excess ABG 10.4 mEq/l (+/-2.0); Fractional Inspired Oxygen 35 %; HCO3 ABG 40.4 mEq/l (22.0-26.0); Oxygen Content ABG 17.4 %vol (16.0-22.0); Oxygen Saturation ABG 95.1 % (95.0-100.0); Oxyhemoglobin 93.5 % THb (90.0-100.0); PO2 ABG 87.5 mmHg (80.0-100.0); Total Hemoglobin 13.2 g/dL (12.0-18.0); pH ABG 7.293 (7.350-7.450)
[2020-02-06 06:46] LABS: Modified Allen's Test Pass; PCO2 ABG 85.3 mmHg (35.0-45.0); Site Drawn LEFT RADIAL
[2020-02-06 06:47] LABS: Device NON-INVASIVE VENT; Non-Invasive Expiratory Pressure 5 CMH2O; Non-Invasive Inspiratory Pressure 20 CMH2O; Non-Invasive Vent Rate 20 /MIN
[2020-02-06 06:51] LABS: Thyroid Stimulating Hormone Reflex 0.074 uIU/mL (0.465-4.68)
[2020-02-06] MEDS: LORazepam INJ (*CRX) 2 MG/ML VIAL 0.5 MG IV PUSH ×3 (08:01→19:46)
[2020-02-06 08:25] LABS: Free T4 Free Thyroxine Reflex 0.74 ng/dL (0.78-2.19)
[2020-02-06] MEDS: IPRATROPIUM BR 0.02% INH SOLN 0.5 MG/2.5 ML VIAL 1 MG (09:02)
[2020-02-06] MEDS: ALBUTEROL SULFATE NEB 2.5 MG/0.5 ML INH 15 MG INHALATION (09:02)
--- NOTE | 2020-02-06 09:23 | WPDCNINT ---
Assessment and Plan Assessment and plan (1) Acute hypercapnic respiratory failure: Code(s): J96.02 - Acute respiratory failure with hypercapnia Status: Acute Assessment and Plan: patient presented with increasing shortness of breath, increased oxygen requirements at home, to be a hypercapnic respiratory failure on the ABGs, placed on BiPAP - repeat ABGs continue to reveal hypercapnia, BiPAP settings were changed this morning to obtain adequate tidal volumes - will repeat ABG. - Patient at this time does not want to be intubated as she feels that she may be able to come off this by using the BiPAP, patient is awake alert and oriented x3, will give her some more time with the BiPAP - patient wheezing, will give Solu-Medrol, continues neb treatment - will continue scheduled bronchodilators - patient on azithromycin (2) COPD exacerbation: Code(s): J44.1 - Chronic obstructive pulmonary disease with (acute) exacerbation Status: Acute Assessment and Plan: continue BiPAP, steroids, antibiotics and bronchodilators (3) Suspected COVID-19 virus infection: Code(s): Z20.828 - Contact with and (suspected) exposure to other viral communicable diseases Status: Acute Assessment and Plan: SARS-CoV-2 PCR PCR has been obtained and pending - continue droplet, airborne and contact isolation /precautions - D-dimer and CRP within normal limits (4) Tobacco abuse: Code(s): Z72.0 - Tobacco use Status: Acute Assessment and Plan: patient continues to smoke, on nicotine patch (5) Pulmonary nodules: Code(s): R91.8 - Other nonspecific abnormal finding of lung field Status: Chronic Assessment and Plan: patient was to get a CT-guided biopsy (6) History of pulmonary embolus (PE): Code(s): Z86.711 - Personal history of pulmonary embolism Status: Acute Assessment and Plan: will restart Eliquis (7) DVT prophylaxis: Code(s): Z29.9 - Encounter for prophylactic measures, unspecified Status: Acute Assessment and Plan: on Eliquis (8) GERD (gastroesophageal reflux disease): Qualifiers: Esophagitis presence: esophagitis presence not specified Qualified Code(s): K21.9 - Gastro-esophageal reflux disease without esophagitis Code(s): K21.9 - Gastro-esophageal reflux disease without esophagitis Status: Chronic Assessment and Plan: on Protonix Additional Plan discussed with patient at length and updated her with her condition and plan of care. She was to continue on the BiPAP and see if she can pull through this without being intubated code status: Full code critical care time spent: 47 minutes Due to a high probability of clinically significant, life threatening deterioration, the patient required my highest level of preparedness to intervene emergently and I personally spent this critical care time directly and personally managing the patient. This critical care time included obtaining a history; examining the patient; pulse oximetry; ordering and review of studies; arranging urgent treatment with development of a management plan; evaluation of patient's response to treatment; frequent reassessment; and discussions with other providers. It was exclusive of separately billable procedures and treating other patients and teaching time. Please see Assessment and Plan section and the rest of the note for further information on patient assessment and treatment Society Reporter Consult Note Consult date: 02/06/20 Time Seen: 07:04 Reason for consult: COPD exacerbation, acute hypercarbic respiratory failure HPI: Sharifa Jeronimo Demetri is a 54 year old female with past medical history of anemia, anxiety, arthritis, chronic respiratory failure, COPD and uses 2-3 L of oxygen at home, emphysema, depression, GERD, history of pulmonary embolism, kidney stones, pneumonia, pulmonary hypertension, sleep apnea, tobacco abuse brian
[2020-02-06] MEDS: methylPREDNISolone SOD SUCC 125 MG VIAL IV PUSH (09:28)
[2020-02-06] MEDS: PANTOPRAZOLE 40 MG TABLET PO (12:10)
[2020-02-06] MEDS: METOPROLOL TARTRATE 25 MG TABLET PO ×2 (12:10→21:06)
[2020-02-06] MEDS: APIXABAN 5 MG TABLET PO ×2 (12:11→16:21)
[2020-02-06 12:50] LABS: Alveolar/Arterial O2 Gradient 60.9 mmHg; Base Excess ABG 10.1 mEq/l (+/-2.0); Fractional Inspired Oxygen 30 %; HCO3 ABG 37.9 mEq/l (22.0-26.0); Oxygen Content ABG 16.9 %vol (16.0-22.0); Oxygen Saturation ABG 93.9 % (95.0-100.0); Oxyhemoglobin 92.9 % THb (90.0-100.0); PO2 ABG 73.9 mmHg (80.0-100.0); PO2 FiO2 Ratio Arterial Blood 2.46 %; Total Hemoglobin 12.9 g/dL (12.0-18.0); pH ABG 7.369 (7.350-7.450)
[2020-02-06 12:52] LABS: Device NON-INVASIVE VENT; PCO2 ABG 67.3 mmHg (35.0-45.0); Site Drawn RIGHT BRACHIAL
[2020-02-06 12:53] LABS: Non-Invasive Expiratory Pressure 8 CMH2O; Non-Invasive Inspiratory Pressure 24 CMH2O; Non-Invasive Vent Rate 12 /MIN
[2020-02-06 13:14] LABS: SARS-CoV-2 RNA PCR Negative
[2020-02-06] MEDS: ALBUTEROL SULFATE NEB 2.5 MG/0.5 ML INH INHALATION ×2 (13:55→21:26)
--- NOTE | 2020-02-06 17:53 | PM.IMPN ---
Progress Note: A&P Assessment and Plan (1) Suspected COVID-19 virus infection: Code(s): Z20.828 - Contact with and (suspected) exposure to other viral communicable diseases Status: Acute Assessment and Plan: Ruled out with negative PCR Co 19 SARS. (2) Pulmonary nodules: Code(s): R91.8 - Other nonspecific abnormal finding of lung field Status: Chronic Assessment and Plan: Patient with known lung mass s/p FNAB (3) Acute hypercapnic respiratory failure: Code(s): J96.02 - Acute respiratory failure with hypercapnia Status: Acute Assessment and Plan: Continuous BiPAP Continuous pulse ox Appreciate Environmental Remediation Engineer/Pul note (4) History of pulmonary embolus (PE): Code(s): Z86.711 - Personal history of pulmonary embolism Status: Acute Assessment and Plan: Currently on Apixaban. (5) Pulmonary hypertension: Code(s): I27.20 - Pulmonary hypertension, unspecified Status: Acute Assessment and Plan: Currently on chronic supplemental O2 at home. (6) Chronic respiratory failure: Code(s): J96.10 - Chronic respiratory failure, unspecified whether with hypoxia or hypercapnia Status: Acute Assessment and Plan: Continue breathing treatments. (7) COPD (chronic obstructive pulmonary disease): Code(s): J44.9 - Chronic obstructive pulmonary disease, unspecified Status: Acute Assessment and Plan: Started on Solumedrol On antibiotics Breathing treatments. (8) Acute and chronic respiratory failure with hypercapnia: Code(s): J96.22 - Acute and chronic respiratory failure with hypercapnia Status: Acute Assessment and Plan: Trending down as per ABG's Continuous BiPAP (9) Lung mass: Code(s): R91.8 - Other nonspecific abnormal finding of lung field Status: Acute Assessment and Plan: Follow up in the outpatient setting. (10) Tobacco dependence: Code(s): F17.200 - Nicotine dependence, unspecified, uncomplicated Status: Chronic Assessment and Plan: Nicotine patch as needed. (11) Sleep apnea: Qualifiers: Sleep apnea type: unspecified type Qualified Code(s): G47.30 - Sleep apnea, unspecified Code(s): G47.30 - Sleep apnea, unspecified Status: Chronic Assessment and Plan: On BiPAP (12) GERD (gastroesophageal reflux disease): Qualifiers: Esophagitis presence: esophagitis presence not specified Qualified Code(s): K21.9 - Gastro-esophageal reflux disease without esophagitis Code(s): K21.9 - Gastro-esophageal reflux disease without esophagitis Status: Chronic Assessment and Plan: Continue home meds. (13) Acute exacerbation of chronic obstructive airways disease: Code(s): J44.1 - Chronic obstructive pulmonary disease with (acute) exacerbation Status: Acute Assessment and Plan: Slightly improved from presentation. Breathing treatments. Systemic steroids. Subjective Date/time seen: 02/06/20 17:53 Patient states that she is feeling much better than when she came in the night before. Review of Systems Review of Systems: Narrative: Patient is currently on BIPAP. Unable to obtain much history due to the presence of a mask over her mout and nose. Exam Narrative: Exam Narrative: Patient is under droplet, airborne and contact isolation, on continuous BiPAP. Lying in bed NAD, tolerating well. Const: General: cooperative, comfortable, well developed, alert, awake and Physically active Nutritional Appearance: average body habitus HENMT: Head: normal to inspection, normocephalic and atraumatic Ears: hearing grossly normal bilaterally General nose exam: Normal external nose present Face and sinus: normal facial exam Eyes: General: appearance normal, both eyes and all related structures Pupils: Equal, round and reactive pupils present EOM: EOMs intact bilaterally Neck: Neck: full ROM
[2020-02-06] MEDS: HYDROcodone/acetaminophen (*CRX) 7.5-325 MG TABLET 1 TAB PO (21:05)
[2020-02-06] MEDS: LORazepam INJ (*CRX) 2 MG/ML VIAL 1 MG IV PUSH (21:06)
--- NOTE | 2020-02-06 22:00 | PM.CNPUL ---
Assessment and Plan Assessment and plan (1) Acute respiratory failure with hypoxia and hypercapnia: Code(s): J96.01 - Acute respiratory failure with hypoxia; J96.02 - Acute respiratory failure with hypercapnia Status: Acute Assessment and Plan: agree with current BIPAP settings, systemic steroids, antibiotics and nebulized bronchodilator regimen (2) COPD (chronic obstructive pulmonary disease): Qualifiers: COPD type: unspecified COPD Qualified Code(s): J44.9 - Chronic obstructive pulmonary disease, unspecified Code(s): J44.9 - Chronic obstructive pulmonary disease, unspecified Status: Acute (3) Lung mass: Code(s): R91.8 - Other nonspecific abnormal finding of lung field Status: Acute Assessment and Plan: GOPAL mass supcious for malignancy but in a very diffuclt spot to biopsy. PET positive. Awaiting to see surgeon. She will need CT guided biopsy with immediate or prophylactic placement of chest tube to get this done. She should have this done as soon as she is stable. History of Present Illness History of Present Illness Consult date: 02/06/20 Chief complaint: Hypercapnic respiratory failure, COPD exacerbation Narrative: 54 y/o female with severe COPD and chronic hypoxemic respiratory failure presents with recurrent COPD exacerbations. She has has been admitted multiple times to the hospital this year with similar presentations. She complains of increased coughing, dyspnea, wheezing and chest tightness but no viral symptoms. CT chest showed GOPAL persistent lung mass but no pneumonia or infiltrates. There was no PE and she has no signs of CHF. She was placed on BIPAP and treated with high dose systemic steroids, nebulized bronchodilators and antibiotics. Her ABG is improveing with changes in BIPAP to 24/8. She seems very anxious. She continues to smoke 1/2 pack to 1 pack of cigs/day and this is the most likely cause of why she keeps exacerbating Review of Systems Review of Systems: All systems reviewed & are unremarkable except as noted in HPI and below PMFSH Past Medical History Medical History (Updated 02/06/20 @ 22:10 by Syeda Adame MD) Anemia Anxiety Arm fracture, left Arthritis Back pain Bronchitis Chronic respiratory failure COPD (chronic obstructive pulmonary disease) Depression Emphysema of lung Foot fracture, right GERD (gastroesophageal reflux disease) History of pulmonary embolus (PE) Inguinal hernia Kidney stones On home O2 2 L at rest and 3 L with activity Pneumonia Pulmonary embolism Pulmonary hypertension Pulmonary nodules suspicious for bronchogenic carcinoma Sleep apnea Tobacco abuse UTI (urinary tract infection) Surgical History Surgical History Hx of arthroscopy of left knee Hx of elbow surgery lt elbow Hx of inguinal hernia repair Hx of tonsillectomy Hx of tubal ligation Family History Family History Father , at 46 of lung CA Lung cancer Mother Cerebrovascular accident Grandparent Diabetes mellitus Sibling Lung cancer Social History Social History (Updated 02/05/20 @ 22:35 by Leanne Lindsey NP) Social History: the patient has 5 children. She is . And she lives with her sister at this time. Her sister is a durable power wool brusher for healthcare the patient is a full code. Smoking packs per day: 0.25 Smoking cigarettes per day: 5.0 Years smoked: 45 Smoking pack-years: 11.25 Smoking status: Light tobacco smoker Tobacco type: cigarettes Second hand tobacco smoke exposure: Yes Alcohol intake: never Substance use: never Substance use type: does not use Additional living arrangements comments: stays with cousin Additional occupation/education comments: disable Gender identity (if verbalized by the patient): Female Spir
[2020-02-07] VITALS (25 sets, daily range): BP systolic 146–173; BP diastolic 92–106; PULSE 76–105; RESP 12–22; TEMP 36.3–37.1; O2SAT 95–100
[2020-02-07] MEDS: ALBUTEROL SULFATE NEB 2.5 MG/0.5 ML INH INHALATION ×4 (02:11→19:37)
[2020-02-07] MEDS: IPRATROPIUM BR 0.02% INH SOLN 0.5 MG/2.5 ML VIAL INHALATION ×4 (02:11→19:37)
[2020-02-07] MEDS: LORazepam INJ (*CRX) 2 MG/ML VIAL 1 MG IV PUSH ×3 (02:51→17:12)
[2020-02-07] MEDS: HYDROcodone/acetaminophen (*CRX) 7.5-325 MG TABLET 1 TAB PO ×4 (02:52→21:25)
[2020-02-07 04:23] LABS: Alveolar/Arterial O2 Gradient 42.6 mmHg; Carboxyhemoglobin 0.6 % THb (0-2.0); Fractional Inspired Oxygen 30 %; HCO3 ABG 41.3 mEq/l (22.0-26.0); Methemoglobin ABG 0.1 %THb (0-1.5); Oxygen Content ABG 17.5 %vol (16.0-22.0); Oxygen Saturation ABG 96.1 % (95.0-100.0); Oxyhemoglobin 95.4 % THb (90.0-100.0); PO2 ABG 87.3 mmHg (80.0-100.0); PO2 FiO2 Ratio Arterial Blood 2.91 %; Reduced Hemoglobin 3.9 %THb (0-5.0); pH ABG 7.379 (7.350-7.450)
[2020-02-07 04:25] LABS: Device BIPAP; Expiratory Pressure 8 cmH2O; Inspiratory Pressure 24 cmH2O; Modified Allen's Test Pass; PCO2 ABG 71.5 mmHg (35.0-45.0); Site Drawn RIGHT RADIAL
[2020-02-07 04:28] LABS: Hematocrit 37.1 % (37.0-47.0); Hemoglobin 11.9 g/dL (12.0-15.0); Immature Granulocyte Absolute 0.05 K/mm3 (0.00-0.031); Immature Granulocyte Percent A 0.5 % (0-0.5); Lymphocytes Absolute Auto 0.41 K/mm3 (0.9-3.2); Mean Corpuscular HGB Conc 32.1 g/dl (32-36); Mean Corpuscular Hemoglobin 31.6 pg (26-34); Mean Corpuscular Volume 98.4 fl (80-100); Mean Platelet Volume 10.8 fl (7.4-10.4); Monocytes Absolute Auto 0.3 K/mm3 (0.1-0.6); Monocytes Percent Auto 2.9 % (2.6-8.5); Neutrophils Absolute Auto 9.4 K/mm3 (1.3-6.7); Neutrophils Percent Auto 92.6 % (45.5-73.1); Platelet Count Result 247 k/mm3 (150-375); Red Blood Count 3.77 M/mm3 (4.2-5.4); Red Cell Distribution Width 11.9 % (11.5-14.5); White Blood Count 10.2 K/mm3 (4.5-10.0)
[2020-02-07 04:59] LABS: Alanine Aminotransferase 17 U/L (4-35); Albumin Level 3.8 g/dL (3.5-5.1); Alkaline Phosphatase 70 U/L (38-126); Anion Gap 7.99999 mmol/L (8-16); Aspartate Amino Transferase 25 U/L (14-36); Bilirubin,Total 0.3 mg/dL (0.2-1.3); Blood Urea Nitrogen 22 mg/dL (7-17); Calcium 9.3 mg/dL (8.4-10.2); Carbon Dioxide > 40 mmol/L (22-30); Chloride 87 mmol/L (98-107); Estimated CRCL calculation 75 ml/min; Estimated Glomerular Filt Rate > 60; Glucose 180 mg/dL (65-105); Magnesium 2.3 mg/dL (1.6-2.3); Phosphorus 5.4 mg/dL (2.5-4.5); Potassium 4.7 mmol/L (3.4-5.0); Sodium 135 mmol/L (137-145)
[2020-02-07] MEDS: methylPREDNISolone SOD SUCC 125 MG VIAL 60 MG IV PUSH ×3 (05:29→18:06)
--- NOTE | 2020-02-07 08:48 | WPDINTPN ---
Progress Note: A&P Assessment and Plan (1) Acute respiratory failure with hypoxia and hypercapnia: Code(s): J96.01 - Acute respiratory failure with hypoxia; J96.02 - Acute respiratory failure with hypercapnia Status: Acute Assessment and Plan: patient presented with increasing shortness of breath, increased oxygen requirements at home, to be a hypercapnic respiratory failure on the ABGs, placed on BiPAP - repeat ABGs continue to reveal hypercapnia, BiPAP settings were changed this morning to obtain adequate tidal volumes - will repeat ABG. - Patient at this time does not want to be intubated as she feels that she may be able to come off this by using the BiPAP, patient is awake alert and oriented x3, will give her some more time with the BiPAP - patient wheezing, will give Solu-Medrol, continues neb treatment - will continue scheduled bronchodilators - patient on azithromycin (2) COPD (chronic obstructive pulmonary disease): Qualifiers: COPD type: unspecified COPD Qualified Code(s): J44.9 - Chronic obstructive pulmonary disease, unspecified Code(s): J44.9 - Chronic obstructive pulmonary disease, unspecified Status: Acute Assessment and Plan: acute COPD exacerbation - continue BiPAP, steroids, antibiotics and bronchodilators (3) Lung mass: Code(s): R91.8 - Other nonspecific abnormal finding of lung field Status: Acute Assessment and Plan: left upper lobe spiculated mass suspicious for malignancy, will require. PET positive. - will require CT-guided biopsy. (4) History of pulmonary embolus (PE): Code(s): Z86.711 - Personal history of pulmonary embolism Status: Acute Assessment and Plan: continue Eliquis (5) Suspected COVID-19 virus infection: Code(s): Z20.828 - Contact with and (suspected) exposure to other viral communicable diseases Status: Acute Assessment and Plan: SARS-CoV-2 PCR PCR negative (6) DVT prophylaxis: Code(s): Z29.9 - Encounter for prophylactic measures, unspecified Status: Acute Assessment and Plan: Eliquis (7) GERD (gastroesophageal reflux disease): Qualifiers: Esophagitis presence: esophagitis presence not specified Qualified Code(s): K21.9 - Gastro-esophageal reflux disease without esophagitis Code(s): K21.9 - Gastro-esophageal reflux disease without esophagitis Status: Chronic Assessment and Plan: continue Protonix Additional Plan discussed with patient at length and updated her with her condition and plan of care. code status: Full code critical care time spent: 33 minutes Due to a high probability of clinically significant, life threatening deterioration, the patient required my highest level of preparedness to intervene emergently and I personally spent this critical care time directly and personally managing the patient. This critical care time included obtaining a history; examining the patient; pulse oximetry; ordering and review of studies; arranging urgent treatment with development of a management plan; evaluation of patient's response to treatment; frequent reassessment; and discussions with other providers. It was exclusive of separately billable procedures and treating other patients and teaching time. Please see Assessment and Plan section and the rest of the note for further information on patient assessment and treatment Subjective Date/time seen: 02/07/20 08:48 Interval history: Reason for consult: COPD exacerbation, acute hypercarbic respiratory failure 02/07/2020: Patient seen and examined the ICU, remains on BiPAP,, comfortable with no distress. Patient answers questions appropriately and follows simple commands. States she feels better after receiving her [place] and Ativan. Is afebrile, adequate urine output. Denies any chest pain, shortness of breath, abdominal pain, nausea vomiting at this time. Patient stat
--- NOTE | 2020-02-07 11:09 | PM.IMPN ---
Progress Note: A&P Assessment and Plan (1) Acute respiratory failure with hypoxia and hypercapnia: Code(s): J96.01 - Acute respiratory failure with hypoxia; J96.02 - Acute respiratory failure with hypercapnia Status: Acute Assessment and Plan: On continuous BiPAP Appreciate Pulmonology/CC note (2) Suspected COVID-19 virus infection: Code(s): Z20.828 - Contact with and (suspected) exposure to other viral communicable diseases Status: Acute Assessment and Plan: Ruled out (3) Pulmonary nodules: Code(s): R91.8 - Other nonspecific abnormal finding of lung field Status: Chronic Assessment and Plan: Likely malignancy. (4) Tobacco abuse: Code(s): Z72.0 - Tobacco use Status: Acute Assessment and Plan: Unchanged. (5) Chronic respiratory failure: Code(s): J96.10 - Chronic respiratory failure, unspecified whether with hypoxia or hypercapnia Status: Acute Assessment and Plan: Chronic CO2 retainer On supplemental O2 at home. (6) COPD (chronic obstructive pulmonary disease): Qualifiers: COPD type: unspecified COPD Qualified Code(s): J44.9 - Chronic obstructive pulmonary disease, unspecified Code(s): J44.9 - Chronic obstructive pulmonary disease, unspecified Status: Acute Assessment and Plan: Continue breathing treatment. (7) Lung mass: Code(s): R91.8 - Other nonspecific abnormal finding of lung field Status: Acute Assessment and Plan: Will follow up in the outpatient setting. (8) COPD exacerbation: Code(s): J44.1 - Chronic obstructive pulmonary disease with (acute) exacerbation Status: Acute Assessment and Plan: Breathing treatments. (9) Acute and chronic respiratory failure with hypercapnia: Code(s): J96.22 - Acute and chronic respiratory failure with hypercapnia Status: Acute Assessment and Plan: On continuous BiPAP Subjective Date/time seen: 02/07/20 11:09 I feel a little better. Review of Systems Review of Systems: Narrative: Unable to obtain as patient is on continuous BiPAP Exam Narrative: Exam Narrative: Lying in bed, on BiPAP. Const: General: cooperative and other (Chronically ill appearing.) Nutritional Appearance: average body habitus Orientation/consciousness: patient oriented x3 HENMT: Head: normal to inspection and normocephalic Ears: hearing grossly normal bilaterally General nose exam: Normal external nose present Face and sinus: normal facial exam Mouth: Yes Normal oral and palatal mucosa present Eyes: General: appearance normal, both eyes and all related structures Pupils: Equal, round and reactive pupils present EOM: EOMs intact bilaterally Neck: Neck: normal visual inspection, no lymphadenopathy and no JVD Thyroid: thyroid normal Lymphatic: no lymphadenopathy noted Resp: Effort & Inspection: normal respiratory effort Auscultation: wheezes Other: On BiPAP Cardio: Jugular venous distension: no JVD Rate: regular rate Rhythm: regular rhythm Heart sounds: S1 normal heart sound present and S2 normal heart sound present GI: GI Palp: Yes Soft to palpation and Yes No hepatosplenomegaly present Auscultation: normal bowel sounds Skin: General skin exam: normal color Lesions: no lesions Rashes: no rashes Trauma: no lacerations or abrasions Wounds: no wounds Neuro: General: patient oriented x3 and CN's II-XI intact bilaterally Cranial nerves: Yes Equal, round and reactive pupils present Extrem: General: normal to inspection and no pedal edema Objective Data Vital Signs Vital Signs: Vital Signs - 24 hr 02/06/20 12:00 02/06/20 13:56 02/06/20 13:59 Temperature 98.3 F Pulse Rate 101 H 100 88 Respiratory Rate 19 28 H 21 H Blood Pressure 164/100 H Pulse Oximetry 97 97 02/06/20 14:00 02/06/20 16:00 02/06/20 18:00 Temperature 97.7 F Pulse Rate 102 H 91 91 Respiratory Rate 20 20 14 Blood P
[2020-02-07] MEDS: METOPROLOL TARTRATE 25 MG TABLET PO ×2 (11:13→21:27)
[2020-02-07] MEDS: APIXABAN 5 MG TABLET PO ×2 (11:13→17:11)
[2020-02-07] MEDS: PANTOPRAZOLE 40 MG TABLET PO (11:14)
[2020-02-07] MEDS: NICOTINE (*PBKC) 14 MG PATCH 1 PATCH TRANSDERM (11:14)
--- NOTE | 2020-02-07 14:18 | PM.PNPUL ---
Progress Note: A&P Assessment and Plan (1) Acute hypercapnic respiratory failure: Code(s): J96.02 - Acute respiratory failure with hypercapnia Status: Acute Assessment and Plan: continue current BIPAP settings of 17/12 (2) COPD (chronic obstructive pulmonary disease): Qualifiers: COPD type: unspecified COPD Qualified Code(s): J44.9 - Chronic obstructive pulmonary disease, unspecified Code(s): J44.9 - Chronic obstructive pulmonary disease, unspecified Status: Acute Assessment and Plan: continue current regimen of systemic steroids, bronchodilators and antibiotics Subjective Date/time seen: 02/07/20 14:18 Interval history: Feeling better today, more sleepy and drowsy but but her PCO2 and ph are improving. Off BiPAP during the day Review of Systems Review of Systems: All systems reviewed & are unremarkable except as noted in HPI and below Exam Const: General: cooperative, healthy appearing, well developed, alert, awake, Physically active and acute distress Orientation/consciousness: oriented to person, oriented to place, oriented to time and patient oriented x3 Limitations: no limitations HENMT: Head: normocephalic and atraumatic Eyes: General: appearance normal, both eyes and all related structures Neck: Neck: trachea midline and supple Cardio: Jugular venous distension: no JVD Rate: regular rate Rhythm: regular rhythm Heart sounds: S1 normal heart sound present and S2 normal heart sound present GI: Auscultation: normal bowel sounds Skin: General skin exam: normal color and no rashes or lesions noted Neuro: General: oriented to person, oriented to place, oriented to time and patient oriented x3 Cognition (Neuro): normal cognition Speech: normal speech Extrem: General: no clubbing, cyanosis or edema Objective Data Vital Signs Vital Signs: Vital Signs - 24 hr 02/06/20 16:00 02/06/20 18:00 02/06/20 20:00 Temperature 36.5 C 37.0 C Pulse Rate 91 91 102 H Respiratory Rate 20 14 17 Blood Pressure 158/98 H 137/106 H 172/99 H Pulse Oximetry 97 100 98 02/06/20 21:06 02/06/20 21:26 02/06/20 21:37 Temperature Pulse Rate 102 H 93 90 Respiratory Rate 24 H 20 Blood Pressure Pulse Oximetry 97 02/06/20 22:00 02/07/20 00:00 02/07/20 02:00 Temperature 36.4 C L Pulse Rate 93 81 86 Respiratory Rate 16 15 20 Blood Pressure 150/105 H 152/98 H 171/105 H Pulse Oximetry 98 100 99 02/07/20 02:11 02/07/20 02:20 02/07/20 04:00 Temperature 36.6 C Pulse Rate 89 96 92 Respiratory Rate 18 20 16 Blood Pressure 157/100 H Pulse Oximetry 96 99 02/07/20 04:03 02/07/20 06:00 02/07/20 07:57 Temperature Pulse Rate 95 105 H 93 Respiratory Rate 14 12 13 Blood Pressure 146/98 H Pulse Oximetry 98 100 100 02/07/20 08:00 02/07/20 08:08 02/07/20 10:00 Temperature 36.3 C L Pulse Rate 87 95 89 Respiratory Rate 12 17 18 Blood Pressure 164/106 H 153/105 H Pulse Oximetry 100 99 02/07/20 11:13 02/07/20 12:00 02/07/20 13:46 Temperature 36.4 C Pulse Rate 105 H 82 88 Respiratory Rate 15 18 Blood Pressure 166/95 H Pulse Oximetry 99 99 02/07/20 14:00 Temperature Pulse Rate 85 Respiratory Rate 14 Blood Pressure 157/99 H Pulse Oximetry 99 Intake/Output Intake/Output: Intake & Output 02/04/20 02/05/20 02/06/20 02/07/20 23:59 23:59 23:59 23:59 Intake Total 400 370 150 Output Total 450 1400 1150 Balance -50 -1030 -1000 Meds/Results Medications: Active Medications Generic Name Dose Route Start Last Admin Trade Name Freq PRN Reason Stop Dose Admin Hydrocodone Bitart/Acetaminophen 1 tab 02/06/20 20:36 02/07/20 11:15 Hydrocodone/Acetaminophen (*Crx) 7.5-325 Mg Tablet PO 1 tab Q6H PRN Administration Pain Rated 7-10 Albuterol 2.5 mg 02/06/20 14:00 02/07/20 13:46 Albuterol Sulfate Neb 2.5 Mg/0.5 Ml Inh INHALATION 2.5 mg Q6HRT NIKOLAI Administration Apixaban 5 mg 02/06/20 09:45 1
[2020-02-07] MEDS: LORazepam (*CRX) 0.5 MG TABLET PO (21:26)
[2020-02-08] VITALS (26 sets, daily range): BP systolic 137–177; BP diastolic 92–106; PULSE 76–108; RESP 14–22; TEMP 36.7–36.9; O2SAT 93–100
[2020-02-08] MEDS: methylPREDNISolone SOD SUCC 125 MG VIAL 60 MG IV PUSH ×4 (00:02→17:34)
[2020-02-08] MEDS: hydrALAZINE HCL 20 MG/ML VIAL 10 MG IV PUSH (00:25)
[2020-02-08] MEDS: HYDROcodone/acetaminophen (*CRX) 7.5-325 MG TABLET 1 TAB PO ×6 (01:16→21:38)
[2020-02-08] MEDS: LORazepam (*CRX) 0.5 MG TABLET PO ×6 (01:16→21:40)
[2020-02-08] MEDS: MELATONIN 3 MG TABLET PO (02:03)
[2020-02-08] MEDS: ALBUTEROL SULFATE NEB 2.5 MG/0.5 ML INH INHALATION ×4 (02:26→20:18)
[2020-02-08] MEDS: IPRATROPIUM BR 0.02% INH SOLN 0.5 MG/2.5 ML VIAL INHALATION ×4 (02:27→20:18)
[2020-02-08 04:06] LABS: Alveolar/Arterial O2 Gradient 97.3 mmHg; Base Excess ABG 13.4 mEq/l (+/-2.0); Carboxyhemoglobin 0.3 % THb (0-2.0); Fractional Inspired Oxygen 32 %; HCO3 ABG 40.8 mEq/l (22.0-26.0); Methemoglobin ABG 0.3 %THb (0-1.5); Oxygen Content ABG 17.6 %vol (16.0-22.0); Oxygen Saturation ABG 89.2 % (95.0-100.0); Oxyhemoglobin 87.7 % THb (90.0-100.0); PO2 ABG 56.6 mmHg (80.0-100.0); PO2 FiO2 Ratio Arterial Blood 1.77 %; Reduced Hemoglobin 11.7 %THb (0-5.0); Total Hemoglobin 14.3 g/dL (12.0-18.0); pH ABG 7.426 (7.350-7.450)
[2020-02-08 04:08] LABS: PCO2 ABG 63.5 mmHg (35.0-45.0)
[2020-02-08 04:09] LABS: Device NASAL CANNULA; Modified Allen's Test Pass; Site Drawn RIGHT RADIAL
[2020-02-08 04:22] LABS: Basophils Percent Auto 0.1 % (0.2-1.2); Hematocrit 40.3 % (37.0-47.0); Hemoglobin 13.1 g/dL (12.0-15.0); Immature Granulocyte Absolute 0.03 K/mm3 (0.00-0.031); Immature Granulocyte Percent A 0.3 % (0-0.5); Lymphocytes Absolute Auto 0.32 K/mm3 (0.9-3.2); Lymphocytes Percent Auto 3.2 % (18.3-44.2); Mean Corpuscular HGB Conc 32.5 g/dl (32-36); Mean Corpuscular Hemoglobin 31.2 pg (26-34); Mean Platelet Volume 10.4 fl (7.4-10.4); Monocytes Absolute Auto 0.3 K/mm3 (0.1-0.6); Monocytes Percent Auto 3.4 % (2.6-8.5); Neutrophils Absolute Auto 9.2 K/mm3 (1.3-6.7); Platelet Count Result 261 k/mm3 (150-375); White Blood Count 9.9 K/mm3 (4.5-10.0)
[2020-02-08 04:58] LABS: Anion Gap 5.99999 mmol/L (8-16); Blood Urea Nitrogen 22 mg/dL (7-17); Carbon Dioxide > 40 mmol/L (22-30); Chloride 90 mmol/L (98-107); Estimated CRCL calculation 86 ml/min; Estimated Glomerular Filt Rate > 60; Glucose 193 mg/dL (65-105); Magnesium 2.5 mg/dL (1.6-2.3); Phosphorus 5.1 mg/dL (2.5-4.5); Potassium 4.2 mmol/L (3.4-5.0); Sodium 136 mmol/L (137-145)
[2020-02-08] MEDS: APIXABAN 5 MG TABLET PO ×2 (09:19→17:34)
[2020-02-08] MEDS: NICOTINE (*PBKC) 14 MG PATCH 1 PATCH TRANSDERM (09:19)
[2020-02-08] MEDS: PANTOPRAZOLE 40 MG TABLET PO (09:19)
[2020-02-08] MEDS: METOPROLOL TARTRATE 25 MG TABLET PO ×2 (09:19→21:38)
--- NOTE | 2020-02-08 11:32 | PM.IMPN ---
Progress Note: A&P Assessment and Plan (1) UTI (urinary tract infection): Code(s): N39.0 - Urinary tract infection, site not specified Status: Acute Assessment and Plan: On Rocephin Await ua cx I&S (2) Acute respiratory failure with hypoxia and hypercapnia: Code(s): J96.01 - Acute respiratory failure with hypoxia; J96.02 - Acute respiratory failure with hypercapnia Status: Acute Assessment and Plan: BIPAP prn Appreciate pulmonology consult Systemic steroids Breathing treatments. (3) Suspected COVID-19 virus infection: Code(s): Z20.828 - Contact with and (suspected) exposure to other viral communicable diseases Status: Acute Assessment and Plan: Ruled out (4) Pulmonary nodules: Code(s): R91.8 - Other nonspecific abnormal finding of lung field Status: Chronic Assessment and Plan: Likely malignancy. Will follow up in the outpatient setting. (5) Tobacco abuse: Code(s): Z72.0 - Tobacco use Status: Acute Assessment and Plan: Needs to quit. (6) Pulmonary hypertension: Code(s): I27.20 - Pulmonary hypertension, unspecified Status: Acute Assessment and Plan: On oxygen. (7) Chronic respiratory failure: Code(s): J96.10 - Chronic respiratory failure, unspecified whether with hypoxia or hypercapnia Status: Acute Assessment and Plan: Continue supportive care. (8) COPD (chronic obstructive pulmonary disease): Qualifiers: COPD type: unspecified COPD Qualified Code(s): J44.9 - Chronic obstructive pulmonary disease, unspecified Code(s): J44.9 - Chronic obstructive pulmonary disease, unspecified Status: Acute Assessment and Plan: Continue present management. (9) Lung mass: Code(s): R91.8 - Other nonspecific abnormal finding of lung field Status: Acute Assessment and Plan: Follow up in the outpatient setting. (10) COPD exacerbation: Code(s): J44.1 - Chronic obstructive pulmonary disease with (acute) exacerbation Status: Acute Assessment and Plan: Continue breathing treatments and systemic steroids. Subjective Date/time seen: 02/08/20 11:32 I feel much better. Pain is better. Review of Systems Review of Systems: Narrative: Patient with sob and persistent cough. Constitutional: Comments: no chills, no fevers, no rigors. Eyes: Comments: no visual disturbance. ENT: Comments: no ear pain, no nasal congestion, no throat pain. Cardiovascular: Comments: no chest pain, no orthopnea, no leg swelling. Respiratory: Comments: sob, wheezing. Gastrointestinal: Comments: no n/v/abdominal pain. Musculoskeletal: Comments: back pain. Neurologic: Comments: no sensory motor deficit Hematologic/Lymphatic: Comments: no LAD Exam Narrative: Exam Narrative: Chronically ill looking lying in bed. Const: General: cooperative, comfortable, ill appearing and well groomed Nutritional Appearance: average body habitus Orientation/consciousness: patient oriented x3 Limitations: no limitations HENMT: Head: normocephalic Ears: hearing grossly normal bilaterally General nose exam: Normal external nose present Face and sinus: normal facial exam Mouth: Yes Normal oral and palatal mucosa present Eyes: General: appearance normal, both eyes and all related structures Pupils: Equal, round and reactive pupils present EOM: EOMs intact bilaterally Neck: Neck: full ROM, no lymphadenopathy and no JVD Lymphatic: no lymphadenopathy noted Resp: Auscultation: wheezes and diminished lung sounds GI: Inspection: normal to inspection GI Palp: Yes Soft to palpation and Yes No hepatosplenomegaly present Skin: General skin exam: normal color Lesions: no lesions Rashes: no rashes Wounds: no wounds Neuro: General: patient oriented x3 and CN's II-XI intact bilaterally Cranial nerves: Yes Equal, round and reactive pupils present and Yes Bilateral
--- NOTE | 2020-02-08 12:18 | WPDINTPN ---
Progress Note: A&P Assessment and Plan (1) Acute respiratory failure with hypoxia and hypercapnia: Code(s): J96.01 - Acute respiratory failure with hypoxia; J96.02 - Acute respiratory failure with hypercapnia Status: Acute Assessment and Plan: patient presented with increasing shortness of breath, increased oxygen requirements at home, to be a hypercapnic respiratory failure on the ABGs, placed on BiPAP - ABG with improvement in pCO2. - continue Solu-Medrol, bronchodilators and BiPAP. - Azithromycin discontinued as patient is growing group B strep in her urine, started patient on ceftriaxone - pulmonology following the patient (2) COPD (chronic obstructive pulmonary disease): Qualifiers: COPD type: unspecified COPD Qualified Code(s): J44.9 - Chronic obstructive pulmonary disease, unspecified Code(s): J44.9 - Chronic obstructive pulmonary disease, unspecified Status: Acute Assessment and Plan: acute COPD exacerbation - continue BiPAP, steroids, antibiotics and bronchodilators (3) Lung mass: Code(s): R91.8 - Other nonspecific abnormal finding of lung field Status: Acute Assessment and Plan: left upper lobe spiculated mass suspicious for malignancy, will require. PET positive. - will require CT-guided biopsy. (4) History of pulmonary embolus (PE): Code(s): Z86.711 - Personal history of pulmonary embolism Status: Acute Assessment and Plan: continue Eliquis (5) Suspected COVID-19 virus infection: Code(s): Z20.828 - Contact with and (suspected) exposure to other viral communicable diseases Status: Acute Assessment and Plan: SARS-CoV-2 PCR PCR negative (6) DVT prophylaxis: Code(s): Z29.9 - Encounter for prophylactic measures, unspecified Status: Acute Assessment and Plan: Eliquis (7) GERD (gastroesophageal reflux disease): Qualifiers: Esophagitis presence: esophagitis presence not specified Qualified Code(s): K21.9 - Gastro-esophageal reflux disease without esophagitis Code(s): K21.9 - Gastro-esophageal reflux disease without esophagitis Status: Chronic Assessment and Plan: continue Protonix (8) UTI (urinary tract infection): Code(s): N39.0 - Urinary tract infection, site not specified Status: Acute Additional Plan patient is on Greenwood and Ativan for her anxiety and chronic pain, she takes these medications at home also discussed with patient at length and updated her with her condition and plan of care. code status: Full code critical care time spent: 31 minutes Due to a high probability of clinically significant, life threatening deterioration, the patient required my highest level of preparedness to intervene emergently and I personally spent this critical care time directly and personally managing the patient. This critical care time included obtaining a history; examining the patient; pulse oximetry; ordering and review of studies; arranging urgent treatment with development of a management plan; evaluation of patient's response to treatment; frequent reassessment; and discussions with other providers. It was exclusive of separately billable procedures and treating other patients and teaching time. Please see Assessment and Plan section and the rest of the note for further information on patient assessment and treatment Subjective Date/time seen: 02/08/20 12:18 Interval history: Reason for consult: COPD exacerbation, acute hypercarbic respiratory failure 02/08/2020: patient on BiPAP, comfortable in no distress. Patient answers to questions and follows simple commands appropriately. Patient is afebrile, adequate urine output. Her Greenwood and Ativan were increased last night by the hospitalist. Patient is hemodynamically stable. PCO2 much improved on ABGs 02/07/2020: Patient seen and examined the ICU, remains on BiPAP,, comforta
[2020-02-08] MEDS: FLUTICASONE PROPIONATE 0.05% NA SPR 16 GM BTL (*BKC) 1 SPRAY NASAL ×2 (13:01→21:37)
--- NOTE | 2020-02-08 13:25 | PM.PNPUL ---
Progress Note: A&P Assessment and Plan (1) Acute hypercapnic respiratory failure: Code(s): J96.02 - Acute respiratory failure with hypercapnia Status: Acute Assessment and Plan: may not need home NIV. continue BIPAP 17/12 only as needed. needs PT/OT and mobilization (2) COPD (chronic obstructive pulmonary disease): Qualifiers: COPD type: unspecified COPD Qualified Code(s): J44.9 - Chronic obstructive pulmonary disease, unspecified Code(s): J44.9 - Chronic obstructive pulmonary disease, unspecified Status: Acute Assessment and Plan: continue current regimen of systemic steroids, bronchodilators and antibiotics needs to quit smoking senior care prognosis is poor Subjective Date/time seen: 02/08/20 13:25 Interval history: Feeling better, only complaints are nasal stuffiness today Review of Systems Review of Systems: All systems reviewed & are unremarkable except as noted in HPI and below Exam Const: General: cooperative, healthy appearing, well developed, alert, awake, Physically active and acute distress Orientation/consciousness: oriented to person, oriented to place, oriented to time and patient oriented x3 Limitations: no limitations HENMT: Head: normocephalic and atraumatic Eyes: General: appearance normal, both eyes and all related structures Neck: Neck: trachea midline and supple Cardio: Jugular venous distension: no JVD Rate: regular rate Rhythm: regular rhythm Heart sounds: S1 normal heart sound present and S2 normal heart sound present GI: Auscultation: normal bowel sounds Skin: General skin exam: normal color and no rashes or lesions noted Neuro: General: oriented to person, oriented to place, oriented to time and patient oriented x3 Cognition (Neuro): normal cognition Speech: normal speech Extrem: General: no clubbing, cyanosis or edema Objective Data Vital Signs Vital Signs: Vital Signs - 24 hr 02/07/20 13:46 02/07/20 13:56 02/07/20 14:00 Temperature Pulse Rate 88 88 85 Respiratory Rate 18 18 14 Blood Pressure 157/99 H Pulse Oximetry 99 99 02/07/20 16:00 02/07/20 18:00 02/07/20 19:40 Temperature 36.9 C Pulse Rate 89 92 95 Respiratory Rate 17 18 20 Blood Pressure 163/96 H 154/101 H Pulse Oximetry 98 99 98 02/07/20 19:41 02/07/20 20:00 02/07/20 20:02 Temperature 37.1 C Pulse Rate 95 99 100 Respiratory Rate 20 20 20 Blood Pressure 173/105 H Pulse Oximetry 99 02/07/20 21:27 02/07/20 22:00 02/07/20 23:52 Temperature Pulse Rate 105 H 100 76 Respiratory Rate 21 H 18 Blood Pressure 149/92 H Pulse Oximetry 95 100 02/08/20 00:00 02/08/20 02:00 02/08/20 02:27 Temperature 36.9 C Pulse Rate 76 97 96 Respiratory Rate 22 H 16 20 Blood Pressure 170/106 H 152/92 H Pulse Oximetry 100 97 02/08/20 02:45 02/08/20 04:00 02/08/20 06:00 Temperature 36.9 C Pulse Rate 100 102 H 104 H Respiratory Rate 20 16 20 Blood Pressure 142/97 H 137/92 H Pulse Oximetry 98 93 02/08/20 07:32 02/08/20 07:36 02/08/20 07:37 Temperature Pulse Rate 107 H 104 H 103 H Respiratory Rate 18 21 H 18 Blood Pressure Pulse Oximetry 99 99 02/08/20 07:46 02/08/20 08:00 02/08/20 08:05 Temperature 36.7 C Pulse Rate 106 H 105 H 103 H Respiratory Rate 14 15 18 Blood Pressure 140/106 H Pulse Oximetry 96 96 02/08/20 09:19 02/08/20 10:00 02/08/20 12:00 Temperature 36.8 C Pulse Rate 106 H 85 94 Respiratory Rate 18 20 Blood Pressure 142/98 H 164/103 H Pulse Oximetry 97 99 Intake/Output Intake/Output: Intake & Output 02/05/20 02/06/20 02/07/20 02/08/20 23:59 23:59 23:59 23:59 Intake Total 400 370 600 250 Output Total 450 1400 2150 1550 Balance -50 -5860 -1550 -1300 Meds/Results Medications: Active Medications Generic Name Dose Route Start Last Admin Trade Name Freq PRN Reason Stop Dose Admin Hydrocodone Bitart/Acetaminophen 1 tab 02/07/20 20:44 02/08/20 09:20 H
[2020-02-08] MEDS: GABAPENTIN 300 MG CAPSULE PO (21:37)
[2020-02-08] MEDS: methocarbamoL 750 MG TABLET PO (21:37)
[2020-02-09] VITALS (20 sets, daily range): BP systolic 145–167; BP diastolic 88–102; PULSE 74–118; RESP 11–24; TEMP 35.5–36.8; O2SAT 94–100; BMI 23.1
[2020-02-09] MEDS: methylPREDNISolone SOD SUCC 125 MG VIAL 60 MG IV PUSH ×4 (00:23→17:57)
[2020-02-09] MEDS: ALBUTEROL SULFATE NEB 2.5 MG/0.5 ML INH INHALATION ×4 (01:18→18:52)
[2020-02-09] MEDS: IPRATROPIUM BR 0.02% INH SOLN 0.5 MG/2.5 ML VIAL INHALATION ×4 (01:18→18:52)
[2020-02-09] MEDS: LORazepam (*CRX) 0.5 MG TABLET PO ×5 (01:43→21:44)
[2020-02-09] MEDS: HYDROcodone/acetaminophen (*CRX) 7.5-325 MG TABLET 1 TAB PO ×5 (01:43→21:44)
[2020-02-09 05:08] LABS: Hematocrit 40.9 % (37.0-47.0); Hemoglobin 13.3 g/dL (12.0-15.0); Mean Corpuscular HGB Conc 32.5 g/dl (32-36); Mean Corpuscular Hemoglobin 31.3 pg (26-34); Mean Corpuscular Volume 96.2 fl (80-100); Mean Platelet Volume 10.7 fl (7.4-10.4); Platelet Count Result 263 k/mm3 (150-375); Red Blood Count 4.25 M/mm3 (4.2-5.4); White Blood Count 10.2 K/mm3 (4.5-10.0)
[2020-02-09 05:29] LABS: Potassium 4.5 mmol/L (3.4-5.0)
[2020-02-09 05:31] LABS: Anion Gap 4.99999 mmol/L (8-16); Blood Urea Nitrogen 26 mg/dL (7-17); Calcium 8.9 mg/dL (8.4-10.2); Carbon Dioxide > 40 mmol/L (22-30); Chloride 92 mmol/L (98-107); Estimated CRCL calculation 75 ml/min; Estimated Glomerular Filt Rate > 60; Glucose 175 mg/dL (65-105); Sodium 137 mmol/L (137-145)
[2020-02-09] MEDS: methocarbamoL 750 MG TABLET PO ×3 (06:07→21:45)
[2020-02-09] MEDS: GABAPENTIN 300 MG CAPSULE PO ×3 (06:07→21:46)
--- NOTE | 2020-02-09 07:56 | PM.IMPN ---
Progress Note: A&P Assessment and Plan (1) UTI (urinary tract infection): Code(s): N39.0 - Urinary tract infection, site not specified Status: Acute Assessment and Plan: Ruled out Ua cx with only few cfu Rocephin has been discontinued (2) Acute respiratory failure with hypoxia and hypercapnia: Code(s): J96.01 - Acute respiratory failure with hypoxia; J96.02 - Acute respiratory failure with hypercapnia Status: Acute Assessment and Plan: Improved Off of BIPAP Breathing treatments. (3) Suspected COVID-19 virus infection: Code(s): Z20.828 - Contact with and (suspected) exposure to other viral communicable diseases Status: Acute Assessment and Plan: Ruled out. (4) Pulmonary nodules: Code(s): R91.8 - Other nonspecific abnormal finding of lung field Status: Chronic Assessment and Plan: Likely malignancy FNAB done (5) Tobacco abuse: Code(s): Z72.0 - Tobacco use Status: Acute Assessment and Plan: Nicotine patch as needed (6) COPD (chronic obstructive pulmonary disease): Qualifiers: COPD type: unspecified COPD Qualified Code(s): J44.9 - Chronic obstructive pulmonary disease, unspecified Code(s): J44.9 - Chronic obstructive pulmonary disease, unspecified Status: Acute Assessment and Plan: Systemic steroids Breathing treatments Appreciate Pulmonology note (7) Lung mass: Code(s): R91.8 - Other nonspecific abnormal finding of lung field Status: Acute Assessment and Plan: Follow up in the outpatient setting. (8) Tobacco dependence: Code(s): F17.200 - Nicotine dependence, unspecified, uncomplicated Status: Chronic Assessment and Plan: Nicotine patch as needed (9) Sleep apnea: Qualifiers: Sleep apnea type: unspecified type Qualified Code(s): G47.30 - Sleep apnea, unspecified Code(s): G47.30 - Sleep apnea, unspecified Status: Chronic Assessment and Plan: CPAP at night time (10) GERD (gastroesophageal reflux disease): Qualifiers: Esophagitis presence: esophagitis presence not specified Qualified Code(s): K21.9 - Gastro-esophageal reflux disease without esophagitis Code(s): K21.9 - Gastro-esophageal reflux disease without esophagitis Status: Chronic Assessment and Plan: Continue PPI Subjective Date/time seen: 02/09/20 07:56 I feel better had a good night rest. Review of Systems Review of Systems: Narrative: I feel better Constitutional: Comments: no chills, no rigors, no fevers Eyes: Comments: no visual changes. ENT: Comments: no ear ache, no nasal discharge or coingestion, no throat pain. Cardiovascular: Comments: no chest pain, no leg swelling, no claudication. Respiratory: Comments: sob, no cough, no sputum production. Gastrointestinal: Comments: no n/v/abdominal pain. Musculoskeletal: Comments: no joint pain, no swelling. Integumentary/Breasts: Comments: no rashes. Neurologic: Comments: no sensory motor deficit. Hematologic/Lymphatic: Comments: No LAP Exam Narrative: Exam Narrative: Lying in bed. Const: General: cooperative, comfortable, no acute distress, well developed, alert, awake and well groomed Nutritional Appearance: average body habitus Limitations: no limitations HENMT: Head: normal to inspection and normocephalic Ears: hearing grossly normal bilaterally General nose exam: Normal external nose present Face and sinus: normal facial exam Eyes: General: appearance normal, both eyes and all related structures Pupils: Equal, round and reactive pupils present EOM: EOMs intact bilaterally Neck: Neck: full ROM, no lymphadenopathy and no JVD Thyroid: thyroid normal Resp: Effort & Inspection: normal respiratory effort Auscultation: wheezes and diminished lung sounds Cardio: Jugular venous distension: no JVD Rate: regular rate Rhythm: regular rhythm Hea
[2020-02-09] MEDS: APIXABAN 5 MG TABLET PO ×2 (08:35→17:58)
[2020-02-09] MEDS: METOPROLOL TARTRATE 25 MG TABLET PO ×2 (08:35→21:46)
[2020-02-09] MEDS: hydroCHLOROthiazide 12.5 MG CAPSULE PO (08:35)
[2020-02-09] MEDS: NICOTINE (*PBKC) 14 MG PATCH 1 PATCH TRANSDERM (08:35)
[2020-02-09] MEDS: PANTOPRAZOLE 40 MG TABLET PO (08:35)
[2020-02-09] MEDS: VENLAFAXINE HCL XR 75 MG CAP.ER.24H PO (08:35)
[2020-02-09] MEDS: FLUTICASONE PROPIONATE 0.05% NA SPR 16 GM BTL (*BKC) 1 SPRAY NASAL ×2 (08:36→21:47)
--- NOTE | 2020-02-09 11:49 | PM.PNPUL ---
Progress Note: A&P Assessment and Plan (1) Acute hypercapnic respiratory failure: Code(s): J96.02 - Acute respiratory failure with hypercapnia Status: Acute Assessment and Plan: may not need home NIV. continue BIPAP 17/12 only as needed. needs PT/OT and mobilization (2) COPD (chronic obstructive pulmonary disease): Qualifiers: COPD type: unspecified COPD Qualified Code(s): J44.9 - Chronic obstructive pulmonary disease, unspecified Code(s): J44.9 - Chronic obstructive pulmonary disease, unspecified Status: Acute Assessment and Plan: continue current regimen of systemic steroids, bronchodilators and antibiotics needs to quit smoking intermediate prognosis is poor Time Spent With Patient Time with patient: 15 - 25 minutes Subjective Date/time seen: 02/09/20 11:49 Interval history: Sleeping and resting comfortably in bed Review of Systems Review of Systems: All systems reviewed & are unremarkable except as noted in HPI and below Exam Const: General: cooperative, healthy appearing, well developed, alert, awake, Physically active and acute distress Orientation/consciousness: oriented to person, oriented to place, oriented to time and patient oriented x3 Limitations: no limitations HENMT: Head: normocephalic and atraumatic Eyes: General: appearance normal, both eyes and all related structures Neck: Neck: trachea midline and supple Cardio: Jugular venous distension: no JVD Rate: regular rate Rhythm: regular rhythm Heart sounds: S1 normal heart sound present and S2 normal heart sound present GI: Auscultation: normal bowel sounds Skin: General skin exam: normal color and no rashes or lesions noted Neuro: General: oriented to person, oriented to place, oriented to time and patient oriented x3 Cognition (Neuro): normal cognition Speech: normal speech Extrem: General: no clubbing, cyanosis or edema Objective Data Vital Signs Vital Signs: Vital Signs - 24 hr 02/08/20 12:00 02/08/20 13:56 02/08/20 13:57 Temperature 36.8 C Pulse Rate 94 100 94 Respiratory Rate 20 22 H 20 Blood Pressure 164/103 H Pulse Oximetry 99 94 02/08/20 14:00 02/08/20 14:02 02/08/20 16:00 Temperature 36.8 C Pulse Rate 92 90 91 Respiratory Rate 21 H 18 Blood Pressure 164/96 H 177/106 H Pulse Oximetry 99 02/08/20 18:00 02/08/20 20:00 02/08/20 20:19 Temperature 36.8 C Pulse Rate 100 97 96 Respiratory Rate 16 20 Blood Pressure 169/98 H Pulse Oximetry 100 97 02/08/20 20:26 02/08/20 21:38 02/08/20 22:00 Temperature Pulse Rate 106 H 104 H 93 Respiratory Rate 21 H Blood Pressure Pulse Oximetry 02/09/20 00:00 02/09/20 01:18 02/09/20 01:26 Temperature 36.8 C Pulse Rate 78 82 83 Respiratory Rate 17 22 H 16 Blood Pressure 167/99 H Pulse Oximetry 100 02/09/20 02:00 02/09/20 04:00 02/09/20 06:00 Temperature 36.5 C Pulse Rate 81 74 93 Respiratory Rate 11 L Blood Pressure 149/93 H Pulse Oximetry 100 02/09/20 08:00 02/09/20 09:38 02/09/20 10:00 Temperature 35.5 C L Pulse Rate 95 85 77 Respiratory Rate 14 24 H Blood Pressure 150/92 H Pulse Oximetry 99 Intake/Output Intake/Output: Intake & Output 02/06/20 02/07/20 02/08/20 02/09/20 23:59 23:59 23:59 23:59 Intake Total 370 600 650 120 Output Total 1400 2150 2100 500 Balance -1030 -1550 -1450 -380 Meds/Results Medications: Active Medications Generic Name Dose Route Start Last Admin Trade Name Freq PRN Reason Stop Dose Admin Hydrocodone Bitart/Acetaminophen 1 tab 02/07/20 20:44 02/09/20 11:34 Hydrocodone/Acetaminophen (*Crx) 7.5-325 Mg Tablet PO 1 tab Q4H PRN Administration Pain Rated 7-10 Albuterol 2.5 mg 02/06/20 14:00 02/09/20 09:36 Albuterol Sulfate Neb 2.5 Mg/0.5 Ml Inh INHALATION 2.5 mg Q6HRT NIKOLAI Administration Albuterol 1.25 mg 02/08/20 13:48 Albuterol Sulfate Neb 2.5 Mg/3 Ml Inh INHALATION Q6H
--- NOTE | 2020-02-09 13:15 | PC.NURSE ---
Transfer received from ICU per bed. Report received per ANTHONY Proctor.
--- NOTE | 2020-02-09 13:24 | PC.NURSE ---
This patient, Sharifa Mosquera, was transferred to [facility] on 02/09/20 at 1315. Personal belongings sent with patient. Report given to Christy CRUZ. Appropriate documentation sent with patient.
[2020-02-09] MEDS: busPIRone HCL 10 MG TABLET PO (14:09)
[2020-02-10] VITALS (18 sets, daily range): BP systolic 144–152; BP diastolic 84–95; PULSE 76–108; RESP 14–19; TEMP 36.1–37.1; O2SAT 94–100
[2020-02-10] MEDS: methylPREDNISolone SOD SUCC 125 MG VIAL 60 MG IV PUSH ×4 (00:51→17:50)
[2020-02-10] MEDS: ALBUTEROL SULFATE NEB 2.5 MG/0.5 ML INH INHALATION ×3 (01:03→20:58)
[2020-02-10] MEDS: IPRATROPIUM BR 0.02% INH SOLN 0.5 MG/2.5 ML VIAL INHALATION ×3 (01:04→20:58)
[2020-02-10] MEDS: LORazepam (*CRX) 0.5 MG TABLET PO ×5 (02:01→21:19)
[2020-02-10] MEDS: HYDROcodone/acetaminophen (*CRX) 7.5-325 MG TABLET 1 TAB PO ×5 (02:01→21:18)
[2020-02-10] MEDS: methocarbamoL 750 MG TABLET PO ×3 (06:07→21:17)
[2020-02-10] MEDS: GABAPENTIN 300 MG CAPSULE PO ×3 (06:07→21:18)
[2020-02-10 06:11] LABS: Hematocrit 41.6 % (37.0-47.0); Hemoglobin 13.4 g/dL (12.0-15.0); Mean Corpuscular HGB Conc 32.2 g/dl (32-36); Mean Corpuscular Hemoglobin 31.2 pg (26-34); Mean Corpuscular Volume 96.7 fl (80-100); Mean Platelet Volume 10.7 fl (7.4-10.4); Platelet Count Result 241 k/mm3 (150-375); Red Cell Distribution Width 11.9 % (11.5-14.5); White Blood Count 10.2 K/mm3 (4.5-10.0)
[2020-02-10 06:38] LABS: Anion Gap 1.99999 mmol/L (8-16); Blood Urea Nitrogen 34 mg/dL (7-17); Calcium 8.7 mg/dL (8.4-10.2); Carbon Dioxide > 40 mmol/L (22-30); Chloride 93 mmol/L (98-107); Estimated CRCL calculation 75 ml/min; Estimated Glomerular Filt Rate > 60; Glucose 174 mg/dL (65-105); Potassium 4.8 mmol/L (3.4-5.0); Sodium 135 mmol/L (137-145)
--- NOTE | 2020-02-10 07:44 | PM.IMPN ---
Progress Note: A&P Assessment and Plan (1) Acute respiratory failure with hypoxia and hypercapnia: Code(s): J96.01 - Acute respiratory failure with hypoxia; J96.02 - Acute respiratory failure with hypercapnia Status: Acute Assessment and Plan: Off of BIPAP On supplemental O2 Continue to monitor. Appreciate Pul note. Remove Karyn today PT/OT consult. (2) Pulmonary nodules: Code(s): R91.8 - Other nonspecific abnormal finding of lung field Status: Chronic Assessment and Plan: Follow up in the outpatient setting. Poor prognosis. (3) Tobacco abuse: Code(s): Z72.0 - Tobacco use Status: Acute Assessment and Plan: Nicotine patch as needed. (4) Chronic respiratory failure: Code(s): J96.10 - Chronic respiratory failure, unspecified whether with hypoxia or hypercapnia Status: Acute Assessment and Plan: On supplemental O2. (5) COPD (chronic obstructive pulmonary disease): Qualifiers: COPD type: unspecified COPD Qualified Code(s): J44.9 - Chronic obstructive pulmonary disease, unspecified Code(s): J44.9 - Chronic obstructive pulmonary disease, unspecified Status: Acute Assessment and Plan: Breathing treatments Continuous pulse ox. (6) Tobacco dependence: Code(s): F17.200 - Nicotine dependence, unspecified, uncomplicated Status: Chronic Assessment and Plan: Nicoitne patch as needed. (7) Sleep apnea: Qualifiers: Sleep apnea type: unspecified type Qualified Code(s): G47.30 - Sleep apnea, unspecified Code(s): G47.30 - Sleep apnea, unspecified Status: Chronic Assessment and Plan: CPAP at night time Subjective Date/time seen: 02/10/20 07:44 I feel much better, I was able to get some sleep. Review of Systems Review of Systems: Narrative: No new issues. All systems reviewed & are unremarkable except as noted in HPI and below (HPI) Exam Narrative: Exam Narrative: Lying in bed. Const: General: cooperative, comfortable, no acute distress, alert, awake, Physically active and other (Chronically ill appearing.) Nutritional Appearance: average body habitus Orientation/consciousness: patient oriented x3 HENMT: Head: normal to inspection and normocephalic Ears: hearing grossly normal bilaterally General nose exam: Normal external nose present Face and sinus: normal facial exam Mouth: Yes Normal oral and palatal mucosa present Eyes: Pupils: Equal, round and reactive pupils present EOM: EOMs intact bilaterally Neck: Neck: normal visual inspection, no lymphadenopathy and no JVD Lymphatic: no lymphadenopathy noted Resp: Auscultation: clear to auscultation bilaterally and diminished lung sounds Cardio: Jugular venous distension: no JVD Rate: regular rate Rhythm: regular rhythm Heart sounds: S1 normal heart sound present and S2 normal heart sound present GI: Inspection: normal to inspection GI Palp: Yes Soft to palpation and Yes No hepatosplenomegaly present Skin: General skin exam: normal color and turgor normal Lesions: no lesions Rashes: no rashes Neuro: General: patient oriented x3 and CN's II-XI intact bilaterally Cranial nerves: Yes Equal, round and reactive pupils present Motor exam (neuro): 5/5 motor strength present throughout Sensory Exam: normal sensation Extrem: General: normal to inspection and no pedal edema Objective Data Vital Signs Vital Signs: Vital Signs - 24 hr 02/09/20 08:00 02/09/20 09:38 02/09/20 10:00 Temperature 96 F L Pulse Rate 95 85 77 Respiratory Rate 14 24 H Blood Pressure 150/92 H Pulse Oximetry 99 02/09/20 12:00 02/09/20 14:31 02/09/20 14:40 Temperature 96.3 F L Pulse Rate 79 89 88 Respiratory Rate 13 18 18 Blood Pressure 152/102 H Pulse Oximetry 98 99 02/09/20 16:00 02/09/20 18:53 02/09/20 18:55 Temperature 96.2 F L Pulse Rate 85 89 Respiratory Rate 14 18 Blood Pressure 148/88 H Pulse
--- NOTE | 2020-02-10 08:20 | PCOTNOTE ---
Attempted to see patient for OT evaluation at 8:20. Pt. requested to wait until later d/t eating breakfast.
[2020-02-10] MEDS: FLUTICASONE PROPIONATE 0.05% NA SPR 16 GM BTL (*BKC) 1 SPRAY NASAL ×2 (08:30→21:19)
[2020-02-10] MEDS: busPIRone HCL 10 MG TABLET PO (08:30)
[2020-02-10] MEDS: APIXABAN 5 MG TABLET PO ×2 (08:31→17:50)
[2020-02-10] MEDS: NICOTINE (*PBKC) 14 MG PATCH 1 PATCH TRANSDERM (08:31)
[2020-02-10] MEDS: VENLAFAXINE HCL XR 75 MG CAP.ER.24H PO (08:32)
[2020-02-10] MEDS: hydroCHLOROthiazide 12.5 MG CAPSULE PO (08:32)
[2020-02-10] MEDS: METOPROLOL TARTRATE 25 MG TABLET PO ×2 (08:32→21:18)
[2020-02-10] MEDS: PANTOPRAZOLE 40 MG TABLET PO (08:32)
--- NOTE | 2020-02-10 21:42 | PM.PNPUL ---
Progress Note: A&P Assessment and Plan (1) Acute hypercapnic respiratory failure: Code(s): J96.02 - Acute respiratory failure with hypercapnia Status: Acute Assessment and Plan: - will perform overnight pulse oximetry study. If significant nocturnal hypoxemia exists then she will need BIPAP 20/4, backup rate of 14. - Would recommend weaning some meds that are causing daytime sleepiness as they will decrease her motivation to mobilize and undergo PT/OT and will not be motivate to get out of bed. (2) COPD (chronic obstructive pulmonary disease): Qualifiers: COPD type: unspecified COPD Qualified Code(s): J44.9 - Chronic obstructive pulmonary disease, unspecified Code(s): J44.9 - Chronic obstructive pulmonary disease, unspecified Status: Acute Assessment and Plan: continue current regimen of systemic steroids, bronchodilators and antibiotics needs to quit smoking intermediate prognosis is poor She is stable for transfer to inpatient rehab or discharge home Time Spent With Patient Time with patient: 15 - 25 minutes Subjective Date/time seen: 02/10/20 21:42 Interval history: Constantly sleeping during the day. Review of Systems Review of Systems: All systems reviewed & are unremarkable except as noted in HPI and below Exam Narrative: Exam Narrative: sleepy Const: General: cooperative, healthy appearing, well developed, alert, awake, Physically active and acute distress Orientation/consciousness: oriented to person, oriented to place, oriented to time and patient oriented x3 Limitations: no limitations HENMT: Head: normocephalic and atraumatic Eyes: General: appearance normal, both eyes and all related structures Neck: Neck: trachea midline and supple Cardio: Jugular venous distension: no JVD Rate: regular rate Rhythm: regular rhythm Heart sounds: S1 normal heart sound present and S2 normal heart sound present GI: Auscultation: normal bowel sounds Skin: General skin exam: normal color and no rashes or lesions noted Neuro: General: oriented to person, oriented to place, oriented to time and patient oriented x3 Cognition (Neuro): normal cognition Speech: normal speech Extrem: General: no clubbing, cyanosis or edema Objective Data Vital Signs Vital Signs: Vital Signs - 24 hr 02/09/20 21:46 02/09/20 22:15 02/10/20 00:00 Temperature 36.1 C L Pulse Rate 114 H 109 H 79 Respiratory Rate 21 H 14 Blood Pressure 144/95 H Pulse Oximetry 94 100 10/17/20 01:04 02/10/20 01:07 02/10/20 01:10 Temperature Pulse Rate 76 76 78 Respiratory Rate 19 19 18 Blood Pressure Pulse Oximetry 97 02/10/20 04:00 02/10/20 04:09 02/10/20 08:00 Temperature 36.4 C Pulse Rate 78 83 84 Respiratory Rate 16 Blood Pressure 152/90 H Pulse Oximetry 94 02/10/20 08:32 02/10/20 10:46 02/10/20 12:00 Temperature Pulse Rate 80 83 Respiratory Rate 14 Blood Pressure Pulse Oximetry 95 98 02/10/20 13:35 02/10/20 13:44 02/10/20 15:22 Temperature 36.9 C Pulse Rate 81 83 86 Respiratory Rate 18 18 14 Blood Pressure 149/84 H Pulse Oximetry 96 02/10/20 16:00 02/10/20 20:00 02/10/20 20:50 Temperature 37.1 C Pulse Rate 84 97 77 Respiratory Rate 16 18 Blood Pressure 149/92 H Pulse Oximetry 98 02/10/20 20:58 02/10/20 21:18 Temperature Pulse Rate 91 98 Respiratory Rate Blood Pressure Pulse Oximetry 98 Intake/Output Intake/Output: Intake & Output 02/07/20 02/08/20 02/09/20 02/10/20 23:59 23:59 23:59 23:59 Intake Total 600 702 350 1902 Output Total 2150 2100 1050 1800 Balance -1550 -1450 -280 -140 Meds/Results Medications: Active Medications Generic Name Dose Route Start Last Admin Trade Name Freq PRN Reason Stop Dose Admin Hydrocodone Bitart/Acetaminophen 1 tab 02/07/20 20:44 02/10/20 21:18 Hydrocodone/Acetaminophen (*Crx) 7.5-325 Mg Tablet PO 1 tab Q4H PRN Administration Pain
[2020-02-11] VITALS (12 sets, daily range): BP systolic 159; BP diastolic 90; PULSE 69–93; RESP 16–18; TEMP 36.6; O2SAT 98
[2020-02-11] MEDS: HYDROcodone/acetaminophen (*CRX) 7.5-325 MG TABLET 1 TAB PO ×5 (01:17→18:46)
[2020-02-11] MEDS: methylPREDNISolone SOD SUCC 125 MG VIAL 60 MG IV PUSH ×2 (01:17→05:01)
[2020-02-11] MEDS: LORazepam (*CRX) 0.5 MG TABLET PO ×5 (01:17→18:46)
[2020-02-11] MEDS: methocarbamoL 750 MG TABLET PO ×2 (05:00→13:34)
[2020-02-11] MEDS: GABAPENTIN 300 MG CAPSULE PO ×2 (05:01→13:34)
[2020-02-11 05:57] LABS: Hematocrit 41.1 % (37.0-47.0); Hemoglobin 13.2 g/dL (12.0-15.0); Mean Corpuscular HGB Conc 32.1 g/dl (32-36); Mean Corpuscular Volume 99.5 fl (80-100); Mean Platelet Volume 11.2 fl (7.4-10.4); Platelet Count Result 200 k/mm3 (150-375); Red Blood Count 4.13 M/mm3 (4.2-5.4); Red Cell Distribution Width 11.8 % (11.5-14.5); White Blood Count 12.2 K/mm3 (4.5-10.0)
[2020-02-11 06:19] LABS: Anion Gap 2 mmol/L (8-16); Blood Urea Nitrogen 34 mg/dL (7-17); Calcium 8.7 mg/dL (8.4-10.2); Carbon Dioxide 39 mmol/L (22-30); Chloride 94 mmol/L (98-107); Estimated CRCL calculation 102 ml/min; Estimated Glomerular Filt Rate > 60; Glucose 174 mg/dL (65-105); Potassium 4.6 mmol/L (3.4-5.0); Sodium 135 mmol/L (137-145)
[2020-02-11] MEDS: IPRATROPIUM BR 0.02% INH SOLN 0.5 MG/2.5 ML VIAL INHALATION ×3 (09:07→14:55)
[2020-02-11] MEDS: ALBUTEROL SULFATE NEB 2.5 MG/0.5 ML INH INHALATION ×2 (09:07→14:55)
--- NOTE | 2020-02-11 09:14 | PM.PNPUL ---
Progress Note: A&P Assessment and Plan (1) Acute hypercapnic respiratory failure: Code(s): J96.02 - Acute respiratory failure with hypercapnia Status: Acute Assessment and Plan: - have not seen overnight pulse oximetry report but if no desaturations while wearing oxygen she will not need BIPAP or Trilogy upon discharge - Would recommend weaning some meds that are causing daytime sleepiness as they will decrease her motivation to mobilize and undergo PT/OT and will not be motivate to get out of bed. (2) COPD (chronic obstructive pulmonary disease): Qualifiers: COPD type: unspecified COPD Qualified Code(s): J44.9 - Chronic obstructive pulmonary disease, unspecified Code(s): J44.9 - Chronic obstructive pulmonary disease, unspecified Status: Acute Assessment and Plan: continue current regimen of systemic steroids, bronchodilators and antibiotics needs to quit smoking long-term prognosis is poor She is stable for transfer to inpatient rehab or discharge home Time Spent With Patient Time with patient: 15 - 25 minutes Subjective Date/time seen: 02/11/20 09:14 Interval history: Feeling well, no compliants Review of Systems Review of Systems: All systems reviewed & are unremarkable except as noted in HPI and below Exam Narrative: Exam Narrative: sleepy Const: General: cooperative, healthy appearing, well developed, alert, awake, Physically active and acute distress Orientation/consciousness: oriented to person, oriented to place, oriented to time and patient oriented x3 Limitations: no limitations HENMT: Head: normocephalic and atraumatic Eyes: General: appearance normal, both eyes and all related structures Neck: Neck: trachea midline and supple Cardio: Jugular venous distension: no JVD Rate: regular rate Rhythm: regular rhythm Heart sounds: S1 normal heart sound present and S2 normal heart sound present GI: Auscultation: normal bowel sounds Skin: General skin exam: normal color and no rashes or lesions noted Neuro: General: oriented to person, oriented to place, oriented to time and patient oriented x3 Cognition (Neuro): normal cognition Speech: normal speech Extrem: General: no clubbing, cyanosis or edema Objective Data Vital Signs Vital Signs: Vital Signs - 24 hr 02/10/20 10:46 02/10/20 12:00 02/10/20 13:35 Temperature Pulse Rate 83 81 Respiratory Rate 18 Blood Pressure Pulse Oximetry 98 02/10/20 13:44 02/10/20 15:22 10/17/20 16:00 Temperature 36.9 C Pulse Rate 83 86 84 Respiratory Rate 18 14 Blood Pressure 149/84 H Pulse Oximetry 96 02/10/20 20:00 02/10/20 20:50 02/10/20 20:58 Temperature 37.1 C Pulse Rate 96 77 91 Respiratory Rate 16 18 Blood Pressure 149/92 H Pulse Oximetry 98 98 02/10/20 21:18 02/11/20 00:34 02/11/20 04:00 Temperature 36.6 C Pulse Rate 98 69 81 Respiratory Rate 16 Blood Pressure 159/90 H Pulse Oximetry 98 02/11/20 04:02 02/11/20 08:00 Temperature Pulse Rate 87 73 Respiratory Rate Blood Pressure Pulse Oximetry Intake/Output Intake/Output: Intake & Output 02/08/20 02/09/20 02/10/20 02/11/20 23:59 23:59 23:59 23:59 Intake Total 272 573 1787 100 Output Total 2100 1050 2596 450 Balance -1450 -280 -340 -350 Meds/Results Medications: Active Medications Generic Name Dose Route Start Last Admin Trade Name Freq PRN Reason Stop Dose Admin Hydrocodone Bitart/Acetaminophen 1 tab 02/07/20 20:44 02/11/20 05:00 Hydrocodone/Acetaminophen (*Crx) 7.5-325 Mg Tablet PO 1 tab Q4H PRN Administration Pain Rated 7-10 Albuterol 2.5 mg 02/06/20 14:00 02/11/20 09:07 Albuterol Sulfate Neb 2.5 Mg/0.5 Ml Inh INHALATION 2.5 mg Q6HRT NIKOLAI Administration Albuterol 1.25 mg 02/08/20 13:48 Albuterol Sulfate Neb 2.5 Mg/3 Ml Inh INHALATION Q6H PRN shortness of breath or wheezing Apixaban 5 mg 02/06/20 09:45 02/10/20 17:50
[2020-02-11] MEDS: NICOTINE (*PBKC) 14 MG PATCH 1 PATCH TRANSDERM (09:34)
[2020-02-11] MEDS: FLUTICASONE PROPIONATE 0.05% NA SPR 16 GM BTL (*BKC) 1 SPRAY NASAL (09:34)
[2020-02-11] MEDS: METOPROLOL TARTRATE 25 MG TABLET PO (09:35)
[2020-02-11] MEDS: VENLAFAXINE HCL XR 75 MG CAP.ER.24H PO (09:35)
[2020-02-11] MEDS: hydroCHLOROthiazide 12.5 MG CAPSULE PO (09:35)
[2020-02-11] MEDS: PANTOPRAZOLE 40 MG TABLET PO (09:35)
[2020-02-11] MEDS: APIXABAN 5 MG TABLET PO ×2 (09:36→17:02)
--- NOTE | 2020-02-11 14:51 | PM.DS ---
DS: Admitting Diagnosis Admitting Diagnosis Admitting Diagnosis: Hypercapnic respiratory failure, COPD exacerbation DS: Discharge Diagnosis Discharge Diagnosis (1) Acute respiratory failure with hypoxia and hypercapnia: Code(s): J96.01 - Acute respiratory failure with hypoxia; J96.02 - Acute respiratory failure with hypercapnia Status: Acute Assessment and Plan: Initially requiring BiPAP. She was weaned to 3L O2. Seen in consultation by pulmonology and will need to follow up after her lung biopsy. (2) Pulmonary nodules: Code(s): R91.8 - Other nonspecific abnormal finding of lung field Status: Chronic Assessment and Plan: She has an appointment scheduled with cardiothoracic surgeon for biopsy and will follow up with shipping clerk/admin. Highly suspicious for malignancy. Prognosis is poor. (3) Tobacco abuse: Code(s): Z72.0 - Tobacco use Status: Acute Assessment and Plan: She reports smoking 1/2 ppd. She used a nicotine patch throughout her stay. I discussed smoking cessation with her for 5 minutes. She verbalized understanding. (4) Chronic respiratory failure: Code(s): J96.10 - Chronic respiratory failure, unspecified whether with hypoxia or hypercapnia Status: Acute Assessment and Plan: On supplemental O2. (5) COPD (chronic obstructive pulmonary disease): Qualifiers: COPD type: unspecified COPD Qualified Code(s): J44.9 - Chronic obstructive pulmonary disease, unspecified Code(s): J44.9 - Chronic obstructive pulmonary disease, unspecified Status: Acute Assessment and Plan: Received breathing treatments and IV steroids. She will continue a prednisone taper upon discharge. Continue 3L O2 at home. (6) Sleep apnea: Qualifiers: Sleep apnea type: unspecified type Qualified Code(s): G47.30 - Sleep apnea, unspecified Code(s): G47.30 - Sleep apnea, unspecified Status: Chronic Assessment and Plan: Continue CPAP at night. DS: Summary Hospital Course Reason for hospitalization: Shortness of breath Hospital Course: date of admission: 02/05/2020 date of discharge: 02/11/2020 Sharifa Mosquera is a 54-year-old female with history of chronic respiratory failure, COPD, multiple other comorbidities, recent discovery of potentially malignant pulmonary nodules who presented to the emergency department on 02/05/2020 with complaints of shortness of breath ongoing for 12 hours, productive cough, and left-sided chest pain which had been ongoing for many months. At presentation, she was tachypneic at 34, BP elevated at 176/91, additional vital signs stable and she was afebrile, WBC 16.7, H&H stable, bicarb elevated on BMP, BNP 792, and ABG with evidence of hypercapnic respiratory failure. She was admitted to the hospitalist service and was seen in consultation by pulmonology. She was initially admitted to the ICU and placed on BiPAP. Her respiratory status improved and she was transitioned to the medical floor. She was treated with IV steroids and nebulized breathing treatments. Her respiratory status improved and she was weaned to 3 L O2 per nasal cannula which she will continue at home. She had an overnight pulse oximetry evaluation which showed that she was not having any episodes of desaturations and did not require BiPAP or trilogy. She has a lung mass which was known from prior hospitalization in November 2019. She has an appointment scheduled with a cardiothoracic surgeon for lung biopsy and will need to follow-up with her shipping clerk/admin, Dr. Strickland. Her respiratory status improved significantly and she was determined to no longer require inpatient care. She was felt to be stable for discharge and she was comfortable with plan for discharge home. We discussed worrisome signs and symptoms for which to return she was educated on her medications. She was discharged in hemodynamically stable condition o
[2020-02-11] MEDS: predniSONE 20 MG TABLET 40 MG PO (17:02)
== END 2020-02-11 21:00 | disposition home or self-care (01) | DRG 133 ==
LOC: ANHED 15:34 → ANHICU 23:35 → ANH3MED 02-11 06:58 → ANHICU 02-14 14:10 → ANHIMU 02-14 14:10
PROVIDERS: Family Medicine; Internal Medicine; Nurse Practitioner; Admitting Provider Internal Medicine; Emergency Provider Emergency Medicine; PCP Family Medicine; Visit Provider Physician Assistant
DX: J96.22 Acute and chronic respiratory failure with hypercapnia (principal); J44.1 Chronic obstructive pulmonary disease with (acute) exacerbation; J96.21 Acute and chronic respiratory failure with hypoxia; C34.90 Malignant neoplasm of unspecified part of unspecified bronchus or lung; G47.30 Sleep apnea, unspecified; Z20.828 Contact with and (suspected) exposure to other viral communicable diseases; Z23 Encounter for immunization; M19.90 Unspecified osteoarthritis, unspecified site; K21.9 Gastro-esophageal reflux disease without esophagitis; F41.8 Other specified anxiety disorders; D64.9 Anemia, unspecified; F17.210 Nicotine dependence, cigarettes, uncomplicated; I27.20 Pulmonary hypertension, unspecified; Z86.711 Personal history of pulmonary embolism; Z99.81 Dependence on supplemental oxygen
CPT/HCPCS: 36415; 36600; 71045; 80048; 80053; 82375; 82805; 83050; 83605; 83735; 83880; 84100; 84439; 84443; 84484; 85025; 85027; 85380; 85610; 85730; 86140; 87040; 87077; 87086; 87088; 87635; 90471; 90653; 93005; 94002; 94003; 94640; 96361; 96365; 96367; 96375; 97161; 97165; 99291; A9270; C9803; G0008; J0131; J0360; J0456; J0696; J2060; J2270; J2405; J2930; J3475; J7040; J7512; U0003

== ENCOUNTER 2020-02-14 08:34 | Outpatient (CLI) | payer OTHER, SELFPAY ==
[2020-02-14 09:30] VITALS: PULSE 88; O2SAT 94
[2020-02-14 09:35] VITALS: PULSE 114; O2SAT 85
[2020-02-14 09:40] VITALS: PULSE 113; O2SAT 86
[2020-02-14 09:45] VITALS: PULSE 116; O2SAT 87
[2020-02-14 09:50] VITALS: PULSE 118; O2SAT 90
[2020-02-14 10:05] VITALS: PULSE 90; O2SAT 93
--- NOTE | 2020-02-14 11:29 | HOMEO2EVAL ---
Home Oxygen Evaluation RC: Home Oxygen (O2) Evaluation Start: 02/14/20 11:20 Freq: Status: Active Protocol: RPE Activity Type Activity Date Activity User E-Sign Co-Sign Detail Recorded Client Recorded Date Recorded By Document 02/14/20 09:30 [email or web address] [email or web address] 02/14/20 11:29 DJO Document 02/14/20 09:35 [email or web address] [email or web address] 02/14/20 11:29 DJO Document 02/14/20 09:40 [email or web address] [email or web address] 02/14/20 11:29 DJO Document 02/14/20 09:45 [email or web address] [email or web address] 02/14/20 11:29 DJO Document 02/14/20 09:50 [email or web address] [email or web address] 02/14/20 11:29 DJO Document 02/14/20 10:05 [email or web address] [email or web address] 02/14/20 11:29 DJO 02/14/20 02/14/20 02/14/20 09:30 09:35 09:40 Home O2 Evaluation Test Phase Resting Exercise Exercise Oxygen Delivery Room Air Room Air Nasal Cannula Oxygen Flow Rate (L/min) 1 Pulse Oximetry (90-100 %) 94 85 L 86 L Pulse Rate (60-100 beats/min) 88 114 H 113 H Activity Tolerance Excellent Ambulation Distance (feet) Treatment Charges O2 Evaluation 02/14/20 02/14/20 02/14/20 09:45 09:50 10:05 Home O2 Evaluation Test Phase Exercise Exercise Resting Oxygen Delivery Nasal Cannula Nasal Cannula Room Air Oxygen Flow Rate (L/min) 2 3 Pulse Oximetry (90-100 %) 87 L 90 93 Pulse Rate (60-100 beats/min) 116 H 118 H 90 Activity Tolerance Ambulation Distance (feet) 1,000 Treatment Charges
--- NOTE | 2020-02-22 10:25 | WPDPFTINT ---
PFT Interpretation PFT Interpretation: This PFT met all criteria for ATS standards and reproducibility FEV/FVC post bronchodilator 31% FEV1 24% or 0.62 liters FVC 57% or 1.97 liters FVC improved by 34% and 500 ml post bronchodilator TLC 140% or 7.51 liters RV 292% RV/TLC 76% DLCO 29% when adjusted for alveolar volume but not adjusted for hemoglobin Flow volume loops showed severe expiratory coving Impression: Severe airflow obstruction with good response to bronchodilators. Hyperinflation, severe air trapping and severely reduced diffusion capacity are also present. This pattern is suggestive of COPD with possible Asthma component. Clinical correlation is advised.
== END 2020-02-14 08:35 | disposition home or self-care (01) ==
PROVIDERS: PCP Family Medicine; Visit Provider Internal Medicine Critical Care Medicine
DX: J44.9 Chronic obstructive pulmonary disease, unspecified (principal); J96.10 Chronic respiratory failure, unspecified whether with hypoxia or hypercapnia
CPT/HCPCS: 94060; 94618; 94726; 94729

== ENCOUNTER 2020-02-28 11:07 | Outpatient (CLI) | payer OTHER, SELFPAY ==
--- NOTE | 2020-02-28 11:19 | ECHO_ITS ---
Patient Info Name: Sharifa Mosquera Age: 54 years : 1965 Gender: Female Ht: 66 in Wt: 146 lbs BSA: 1.76 m2 HR: 92 bpm BP: 113 / 76 mmHg Heart Rhythm: Sinus Rhythm Technical Quality: Good Exam Date: 02/28/2020 11:38 AM Exam Location: [facility] Pulmonary Patient Status: Outpatient Admit Date: 02/28/2020 Staff Ordering Physician: Emilee Strickland MD Green Building Materials Designer: Vickie Schmidt RDCS Attending Provider: Emilee Strickland MD Exam Type: CA echo doppler color flow Study Info Indications - sob Summary 1. Left ventricular chamber dimension is normal. 2. Left ventricular systolic function is normal, estimated at 65-70%. 3. There is mildly increased left ventricular wall thickness. 4. The left ventricular diastolic function is grade I diastolic dysfunction. 5. Right ventricular chamber dimension is mildly enlarged. 6. There is mild tricuspid valve regurgitation. 7. Mild pulmonary hypertension, estimated pulmonary arterial systolic pressure is 36 mmHg. 8. There is mild pulmonic regurgitation. Left Ventricle Left ventricular chamber dimension is normal. Left ventricular systolic function is normal, estimated at 65-70%. There is mildly increased left ventricular wall thickness. The left ventricular diastolic function is grade I diastolic dysfunction. Right Ventricle Right ventricular chamber dimension is mildly enlarged. Right ventricular systolic function is normal. Left Atria Left atrial chamber dimension is normal. Right Atria Right atrial chamber dimension is normal. Atrial Septum Intact interatrial septum visualized by color flow imaging. Mild lipomatous hypertrophy of the atrial septum. Aortic Valve The aortic valve is trileaflet. There is mild aortic valve sclerosis. There is no aortic valve stenosis. There is trace aortic valve regurgitation. Pulmonic Valve The pulmonic valve is normal. There is no pulmonic valve stenosis. There is mild pulmonic regurgitation. Mitral Valve The mitral valve has normal leaflets. There is no mitral valve stenosis. There is trace mitral valve regurgitation. Tricuspid Valve The tricuspid valve leaflets are normal. There is no significant tricuspid valve stenosis. There is mild tricuspid valve regurgitation. Mild pulmonary hypertension, estimated pulmonary arterial systolic pressure is 36 mmHg. Pericardium/Pleural The pericardium appears normal. There is no pericardial effusion. Inferior Vena Cava Normal inferior vena cava with >50% collapse upon inspiration consistent with normal right atrial pressure, 5 mmHg. Aorta The aortic root size at the sinus of Valsalva is normal. The prox ascending aorta size is normal. Left Ventricular Outflow Tract Name Value Normal LVOT 2D LVOT Diameter 2.0 cm LVOT Doppler LVOT Peak Gradient 5 mmHg LVOT Mean Gradient 3 mmHg LVOT VTI 24 cm LVOT VTI/AV VTI Ratio 1.1 LVOT Stroke Volume 78 ml LVOT CO 15.7 l/min
== END 2020-02-28 11:08 | disposition home or self-care (01) ==
PROVIDERS: PCP Family Medicine; Visit Provider Internal Medicine Critical Care Medicine
DX: R06.02 Shortness of breath (principal); I08.3 Combined rheumatic disorders of mitral, aortic and tricuspid valves
CPT/HCPCS: 93306

== ENCOUNTER 2020-03-05 22:55 | Inpatient (IN) | payer OTHER, SELFPAY ==
--- NOTE | ~2020-03-05 | CT_ITS ---
EXAMINATION: CT brain wo con EXAM DATE: 03/06/2020 01:43 INDICATION: Headache , vomiting. TECHNIQUE: Spiral CT of the head was performed without contrast. Axial, coronal and sagittal images were reviewed. The dose-length product (DLP) for this examination was 605.33 mGy-cm. The exposure w as tailored according to patient size, and iterative reconstruction (ASIR) was used as additional dos e reduction technique. Comparison is made to prior examination from 02/29/2016. FINDINGS: There is no acute intraparenchymal hemorrhage. No evidence of intraparenchymal brain mass lesion. No evidence of acute infarction. Please note that initial head CT has limited sensitivity f or small or acute infarctions. There is mild periventricular and subcortical hypodensity, nonspecific but probably related to small vessel ischemic disease. There is intracranial carotid arteriosclero sis. There are no extra-axial collections. There is no mass effect or midline shift. The orbits ar e unremarkable. Soft tissue is unremarkable. The visualized sinuses and mastoid air cells are well aerated. IMPRESSION: 1. No acute intracranial findings. 2. Mild microangiopathy. Reviewed, dictated and finalized at location A. HBORHOOD AIDE
--- NOTE | ~2020-03-05 | XR_ITS ---
XR chest 1V DATE: 03/06/2020 01:44 INDICATION: Shortness of breath TECHNIQUE: Portable AP chest on 03/06/2020 at 0140 hours COMPARISON: 02/08/2020 portable AP chest FINDINGS: There is bullous emphysema with particularly prominent bullae in the mid and upper right sol ng and left upper lung. There is irregular soft tissue density in the left mid-upper lung, suspicious for possible new or rec urrent pulmonary malignancy. Consider CT thorax for PET/CT imaging. No pulmonary infiltrate or consolidation is noted otherwise. No pleural effusion or pulmonary vascula r congestion or pneumothorax. Normal heart size. No hilar or mediastinal enlargement is noted. Diffuse osteopenia. IMPRESSION: Possible new or recurrent mass of left mid to upper lung; consider CT thorax or PET/CT im aging Severe bullous emphysema Reviewed, dictated and finalized at location A. R [employer]ATMAN IMPRESSION: Possible new or recurrent mass of left mid to upper lung; consider CT thorax or PET/CT imaging Severe bullous emphysema
[2020-03-05 23:03] VITALS: BP 139/78; PULSE 96; RESP 22; TEMP 35.7; O2SAT 98
[2020-03-05 23:53] VITALS: PULSE 78; O2SAT 98
[2020-03-06] VITALS (58 sets, daily range): BP systolic 107–176; BP diastolic 74–124; PULSE 75–136; RESP 12–36; TEMP 36.2–36.6; O2SAT 92–100; BMI 24.0
[2020-03-06 00:08] LABS: Basophils Absolute Auto 0.1 K/mm3 (0.0-0.1); Basophils Percent Auto 0.5 % (0.2-1.2); Eosinophils Absolute Auto 0.1 K/mm3 (0-0.3); Eosinophils Percent Auto 0.6 % (0-4.4); Hemoglobin 12.2 g/dL (12.0-15.0); Immature Granulocyte Absolute 0.02 K/mm3 (0.00-0.031); Immature Granulocyte Percent A 0.2 % (0-0.5); Lymphocytes Absolute Auto 1.19 K/mm3 (0.9-3.2); Lymphocytes Percent Auto 12.4 % (18.3-44.2); Mean Corpuscular HGB Conc 32.1 g/dl (32-36); Mean Corpuscular Hemoglobin 32.2 pg (26-34); Mean Corpuscular Volume 100.3 fl (80-100); Monocytes Absolute Auto 0.8 K/mm3 (0.1-0.6); Neutrophils Absolute Auto 7.5 K/mm3 (1.3-6.7); Neutrophils Percent Auto 78.3 % (45.5-73.1); Platelet Count Result 268 k/mm3 (150-375); Red Blood Count 3.79 M/mm3 (4.2-5.4); Red Cell Distribution Width 12.4 % (11.5-14.5); White Blood Count 9.6 K/mm3 (4.5-10.0)
--- NOTE | 2020-03-06 00:14 | ECG_ITS ---
Measurements Intervals [place] Rate: 95 P: 92 FL: 156 QRS: 71 QRSD: 89 T: 70 QT: 364 QTc: 458 Interpretive Statements SINUS RHYTHM BASELINE ARTIFACT- I, II, III, V3-V4 BORDERLINE ECG Electronically Signed On 03-06-2020 8:42:30 COMMERCIAL DEVELOPMENT MANAGER by Dick Woodard D.O.
[2020-03-06 00:31] LABS: Anion Gap 3.99999 mmol/L (8-16); Blood Urea Nitrogen 14 mg/dL (7-17); Carbon Dioxide > 40 mmol/L (22-30); Chloride 89 mmol/L (98-107); Estimated CRCL calculation 104 ml/min; Estimated Glomerular Filt Rate > 60; Glucose 169 mg/dL (65-105); Potassium 4.3 mmol/L (3.4-5.0); Sodium 133 mmol/L (137-145)
--- NOTE | 2020-03-06 00:39 | ED.SOB ---
HPI - SOB/Dyspnea General Chief Complaint: Shortness of Breath/Dyspnea Stated Complaint: headache Time Seen by Provider: 03/06/20 00:17 Source: patient Mode of arrival: ambulatory Limitations: no limitations History of Present Illness HPI Narrative: This patient is a 54 year old female smoker with history of COPD and asthma, home oxygen 2L NC who presents for evaluation of not feeling well. She reports she has worsening shortness of breath over the past week. She denies fever, chills or cough. She reported chronic chest pain to staff for several months. She also reports frontal headache that has been constant for 1 week. She reports history of headache but this seems worse. She denies associated focal weakness or visual changes. MD elicited complaint: shortness of breath Related Data Home Medications Medication Instructions Recorded Confirmed Eliquis 5 mg PO BID 04/30/19 02/06/20 Incruse Ellipta 1 inh INHALATION DAILY 04/30/19 02/06/20 budesonide-formoterol [Symbicort] 2 puff INHALATION Q12H 04/30/19 02/06/20 gabapentin 300 mg PO TID 04/30/19 02/06/20 hydroxyzine pamoate 50 mg PO QID PRN 04/30/19 02/06/20 venlafaxine 75 mg PO DAILY 04/30/19 02/06/20 buspirone 10 mg PO BID PRN 11/26/19 02/06/20 metoprolol tartrate 25 mg PO BID 11/26/19 02/06/20 hydrochlorothiazide 12.5 mg PO DAILY 02/05/20 02/06/20 methocarbamol 750 mg PO TID 02/05/20 02/06/20 omeprazole 20 mg PO DAILY 02/06/20 02/06/20 Allergies Allergy/AdvReac Type Severity Reaction Status Date / Time nitrofurantoin Allergy Unknown HIVES Verified 02/05/20 22:30 oxycodone AdvReac Unknown NAUSEA, Verified 02/07/20 20:47 HEART RACING Review of Systems Review of Systems: All systems reviewed & are unremarkable except as noted in HPI and below Constitutional: Constitutional: Denies chills and Denies fever(s) ENT: Denies dizziness and Denies nasal congestion Respiratory: Respiratory: Denies cough and Reports dyspnea Gastrointestinal: Gastrointestinal: Denies abdominal pain, Denies diarrhea, Reports nausea and Reports vomiting Musculoskeletal: Musculoskeletal: Reports myalgias Neurologic: Denies vertigo, Reports headache(s) and Denies focal weakness PMFSH Past Medical History Medical History Anemia Anxiety Arm fracture, left Arthritis Back pain Bronchitis Chronic respiratory failure COPD (chronic obstructive pulmonary disease) Depression Emphysema of lung Foot fracture, right GERD (gastroesophageal reflux disease) History of pulmonary embolus (PE) Inguinal hernia Kidney stones On home O2 2 L at rest and 3 L with activity Pneumonia Pulmonary embolism Pulmonary hypertension Pulmonary nodules suspicious for bronchogenic carcinoma Sleep apnea Tobacco abuse UTI (urinary tract infection) Surgical History Surgical History Hx of arthroscopy of left knee Hx of elbow surgery lt elbow Hx of inguinal hernia repair Hx of tonsillectomy Hx of tubal ligation Family History Family History Father , at 46 of lung CA Lung cancer Mother Cerebrovascular accident Grandparent Diabetes mellitus Sibling Lung cancer Social History Social History Social History: the patient has 5 children. She is . And she lives with her sister at this time. Her sister is a durable power prosecuting attorney for healthcare the patient is a full code. Smoking packs per day: 0.25 Smoking cigarettes per day: 5.0 Years smoked: 45 Smoking pack-years: 11.25 Smoking status: Light tobacco smoker Tobacco type: cigarettes Second hand tobacco smoke exposure: Yes Alcohol intake: never Substance use: never Substance use type: does not use Additional living arrangements comments: stays with
[2020-03-06 00:59] LABS: Base Excess ABG 9.1 mEq/l (+/-2.0); Carboxyhemoglobin 6.3 % THb (0-2.0); Fractional Inspired Oxygen 36 %; HCO3 ABG 39.3 mEq/l (22.0-26.0); Methemoglobin ABG 0.2 %THb (0-1.5); Oxygen Saturation ABG 96.9 % (95.0-100.0); Oxyhemoglobin 91.1 % THb (90.0-100.0); PO2 ABG 108.4 mmHg (80.0-100.0); PO2 FiO2 Ratio Arterial Blood 3.01 %; Reduced Hemoglobin 2.4 %THb (0-5.0); Total Hemoglobin 12.4 g/dL (12.0-18.0)
[2020-03-06 01:01] LABS: Device NASAL CANNULA; Modified Allen's Test Pass; Site Drawn RIGHT RADIAL; pH ABG 7.263 (7.350-7.450)
[2020-03-06] MEDS: LACTATED RINGERS 1,000 ML 999 ML IV CONT ×2 (01:02→04:40)
[2020-03-06] MEDS: ONDANSETRON INJ 4 MG/2 ML VIAL IV PUSH (01:02)
[2020-03-06 01:09] LABS: INR 0.8
[2020-03-06 01:10] LABS: Partial Thromboplastin Time 30.5 SECONDS (22.3-36.8)
[2020-03-06 01:12] LABS: Add Urine Microscopic? YES; Appearance Urine Clear (Clear); Bilirubin Urine Negative (Negative); Blood Urine Negative (Negative); Color Urine Yellow (Yellow); Glucose Urine UA Negative (Negative); Ketones Urine Negative (Negative); Leukocyte Esterase Ur Trace LEU/UL (Negative); Nitrate Urine Negative (Negative); Protein Urine Negative (Negative); RBC Urine 0-2 /hpf (0-2); Specific Grav Ur 1.017 (1.001-1.035); Squamous Epithelial Cell Urine Moderate /hpf (Few); Urobilinogen Urine Negative mg/dL (<2.0)
[2020-03-06 01:20] LABS: Troponin I < 0.012 ng/mL (0.000-0.034)
--- NOTE | 2020-03-06 01:40 | PCRCNOTE ---
At 01:[address] waiting for them to return to put on bipap and do neb tx.
[2020-03-06] MEDS: ALBUTEROL SULFATE NEB 2.5 MG/0.5 ML INH 5 MG INHALATION ×3 (01:43→21:45)
[2020-03-06] MEDS: IPRATROPIUM BR 0.02% INH SOLN 0.5 MG/2.5 ML VIAL INHALATION ×3 (01:43→21:45)
--- NOTE | 2020-03-06 02:55 | PM.IMHP ---
H&P: HPI History of Present Illness Date/Time: 03/06/20 02:55 Chief complaint: headache Narrative: This is a 54 year old female with known COPD chronically anticoagulated on Eliquis, and chronic respiratory failure on 2L of oxygen at home who presented to the hospital with a complaint of increased shortness of breath and wheezing for the past week. She denies any significant coughing. Associated symptoms include generalized weakness. The patient is very well known to our Hospitalist service for multiple hospitalizations for acute respiratory failure. The patient admits that she continues to smoke 1/2 ppd. On arrival to the hospital the patient was found to be in acute hypercapnic respiratory failure w/ a pH of 7.263 and a pCO2 of 89. The patient has been given breathing treatments and initiated on Bipap. CXR demonstrated mass of left mid to upper lung which is not new and severe bullous emphysema. The patient was initially nauseated on arrival but she feels better now. No other complaints. She was swabbed for COVID-19 last month and was negative. Review of Systems Review of Systems: All systems reviewed & are unremarkable except as noted in HPI and below PMFSH Past Medical History Medical History Anemia Anxiety Arm fracture, left Arthritis Back pain Bronchitis Chronic respiratory failure COPD (chronic obstructive pulmonary disease) Depression Emphysema of lung Foot fracture, right GERD (gastroesophageal reflux disease) History of pulmonary embolus (PE) Inguinal hernia Kidney stones On home O2 2 L at rest and 3 L with activity Pneumonia Pulmonary embolism Pulmonary hypertension Pulmonary nodules suspicious for bronchogenic carcinoma Sleep apnea Tobacco abuse UTI (urinary tract infection) Surgical History Surgical History Hx of arthroscopy of left knee Hx of elbow surgery lt elbow Hx of inguinal hernia repair Hx of tonsillectomy Hx of tubal ligation Family History Family History Father , at 46 of lung CA Lung cancer Mother Cerebrovascular accident Grandparent Diabetes mellitus Sibling Lung cancer Social History Social History Social History: the patient has 5 children. She is . And she lives with her sister at this time. Her sister is a durable power real estate associate attorney for healthcare the patient is a full code. Smoking packs per day: 0.25 Smoking cigarettes per day: 5.0 Years smoked: 45 Smoking pack-years: 11.25 Smoking status: Light tobacco smoker Tobacco type: cigarettes Second hand tobacco smoke exposure: Yes Alcohol intake: never Substance use: never Substance use type: does not use Additional living arrangements comments: stays with cousin Additional occupation/education comments: disable Gender identity (if verbalized by the patient): Female Spiritual care concerns: No Agree to blood products: Yes Meds Home Medications and Allergies Home Medications Medication Instructions Recorded Confirmed Type Eliquis 5 mg PO BID 04/30/19 02/06/20 History Incruse Ellipta 1 inh INHALATION DAILY 04/30/19 02/06/20 History budesonide-formoterol [Symbicort] 2 puff INHALATION Q12H 04/30/19 02/06/20 History gabapentin 300 mg PO TID 04/30/19 02/06/20 History hydroxyzine pamoate 50 mg PO QID PRN 04/30/19 02/06/20 History venlafaxine 75 mg PO DAILY 04/30/19 02/06/20 History buspirone 10 mg PO BID PRN 11/26/19 02/06/20 History metoprolol tartrate 25 mg PO BID 11/26/19 02/06/20 History albuterol sulfate 1.25 mg INHALATION Q6H PRN #90 ml 12/01/19 02/06/20 Rx hydrochlorothiazide 12.5 mg PO DAILY 02/05/20 02/06/20 History methocarbamol 750 mg PO TID 02/05/20 02/06/20 History omeprazole 20 mg PO DAILY 02/06/2002/05
[2020-03-06 03:01] LABS: Alveolar/Arterial O2 Gradient 54.5 mmHg; Base Excess ABG 9.5 mEq/l (+/-2.0); Carboxyhemoglobin 5.5 % THb (0-2.0); Fractional Inspired Oxygen 32 %; HCO3 ABG 39.1 mEq/l (22.0-26.0); Oxygen Content ABG 15.1 %vol (16.0-22.0); Oxygen Saturation ABG 92.3 % (95.0-100.0); Oxyhemoglobin 89.3 % THb (90.0-100.0); PO2 ABG 74.4 mmHg (80.0-100.0); PO2 FiO2 Ratio Arterial Blood 2.33 %; Reduced Hemoglobin 5.2 %THb (0-5.0)
[2020-03-06 03:03] LABS: Device BIPAP; Expiratory Pressure 8 cmH2O; Inspiratory Pressure 18 cmH2O; Modified Allen's Test Pass; PCO2 ABG 84.8 mmHg (35.0-45.0); Site Drawn RIGHT RADIAL; pH ABG 7.282 (7.350-7.450)
[2020-03-06] MEDS: methylPREDNISolone SOD SUCC 125 MG VIAL IV PUSH (03:46)
[2020-03-06] MEDS: LACTATED RINGERS 1,000 ML 125 ML IV CONT ×3 (03:47→21:02)
[2020-03-06] MEDS: METOCLOPRAMIDE HCL INJ 10 MG/2 ML VIAL IV PUSH (04:40)
--- NOTE | 2020-03-06 05:00 | PC.NURSE ---
Pt. requesting something for anxiety. ERP notified. No further orders at this time.
[2020-03-06] MEDS: diphenhydrAMINE HCl INJ 50 MG/ML VIAL 25 MG IV PUSH (05:35)
[2020-03-06] MEDS: hydrOXYzine HCl 50 MG/ML VIAL IM (06:01)
--- NOTE | 2020-03-06 06:13 | PC.NURSE ---
increased pt. O2% to 40% respiratory notified.
[2020-03-06 06:53] LABS: Alveolar/Arterial O2 Gradient 78.4 mmHg; Fractional Inspired Oxygen 40 %; HCO3 ABG 36.4 mEq/l (22.0-26.0); Oxygen Content ABG 16.8 %vol (16.0-22.0); Oxygen Saturation ABG 96.5 % (95.0-100.0); Oxyhemoglobin 93.1 % THb (90.0-100.0); PO2 ABG 105.5 mmHg (80.0-100.0); PO2 FiO2 Ratio Arterial Blood 2.64 %; Total Hemoglobin 12.7 g/dL (12.0-18.0)
[2020-03-06 06:55] LABS: Modified Allen's Test Pass; PCO2 ABG 88.1 mmHg (35.0-45.0); Site Drawn RIGHT RADIAL; pH ABG 7.234 (7.350-7.450)
[2020-03-06 06:56] LABS: Device NON-INVASIVE VENT; Non-Invasive Expiratory Pressure 8 CMH2O; Non-Invasive Inspiratory Pressure 20 CMH2O; Non-Invasive Vent Rate 16 /MIN
--- NOTE | 2020-03-06 07:12 | PC.NURSE ---
Called phlebotomy about pt. Labs that need to be collected. Phlebotomy informed this RN to draw the blood. RN told vascular technologist that the pt. is boarded and the blood needs to be drawn. Installation Technician told This RN that they were on morning rounds and will not be drawing the blood.
[2020-03-06] MEDS: LORazepam INJ (*CRX) 2 MG/ML VIAL 0.5 MG IV PUSH (08:02)
--- NOTE | 2020-03-06 08:31 | PC.NURSE ---
0821 This RN called ED and received report from ANTHONY Robert.
--- NOTE | 2020-03-06 10:18 | ADMGEN ---
This patient, Sharifa Mosquera, was admitted to IMU Room 209-01 at 0845 on 03/06/2020. Patient/family oriented to hospital policies and general routines including ID bracelet, bed and alarms, visiting hours, pain management, procedures, bathroom and other care routines, personal items, smoking policy, room service/diet, and visiting hours. Information on how to activate the Rapid Response Team has been discussed. Patient/Family are encouraged to report perceived risks to care and to ask questions if they do not understand what they are told or what they should do.
[2020-03-06] MEDS: methylPREDNISolone SOD SUCC 125 MG VIAL 60 MG IV PUSH ×3 (12:23→23:50)
[2020-03-06 13:04] LABS: Alveolar/Arterial O2 Gradient 56.6 mmHg; Base Excess ABG 8.4 mEq/l (+/-2.0); Fractional Inspired Oxygen 30 %; Oxygen Content ABG 15.8 %vol (16.0-22.0); Oxygen Saturation ABG 92.2 % (95.0-100.0); Oxyhemoglobin 91.2 % THb (90.0-100.0); PO2 ABG 70.9 mmHg (80.0-100.0); PO2 FiO2 Ratio Arterial Blood 2.36 %; Total Hemoglobin 12.3 g/dL (12.0-18.0)
[2020-03-06 13:10] LABS: Device NON-INVASIVE VENT; Modified Allen's Test Pass; Non-Invasive Expiratory Pressure 8 CMH2O; Non-Invasive Inspiratory Pressure 24 CMH2O; Non-Invasive Vent Rate 20 /MIN; PCO2 ABG 73.5 mmHg (35.0-45.0); Site Drawn RIGHT RADIAL
[2020-03-06 14:13] LABS: SARS-CoV-2 RNA PCR Negative
--- NOTE | 2020-03-06 15:23 | PM.IMPN ---
Subjective Date/time seen: 03/06/20 15:23 Interval history: HIstory and physical as per Dr Doherty, Pt is negative for COVID. Abgs are improving continue current orders Objective Data Vital Signs Vital Signs: Vital Signs - 24 hr 03/05/20 23:03 03/05/20 23:53 03/06/20 01:43 Temperature 35.7 C L Pulse Rate 96 78 99 Respiratory Rate 22 H 22 H Blood Pressure 139/78 Pulse Oximetry 98 98 03/06/20 01:46 03/06/20 01:51 03/06/20 01:54 Temperature Pulse Rate 97 94 94 Respiratory Rate 23 H 14 19 Blood Pressure 146/83 H Pulse Oximetry 100 100 03/06/20 02:51 03/06/20 03:00 03/06/20 03:41 Temperature Pulse Rate 96 94 Respiratory Rate 16 17 Blood Pressure Pulse Oximetry 99 97 100 03/06/20 03:45 03/06/20 04:00 03/06/20 04:01 Temperature Pulse Rate 94 96 95 Respiratory Rate 16 16 16 Blood Pressure 107/87 110/78 Pulse Oximetry 100 99 100 03/06/20 04:15 03/06/20 04:30 03/06/20 04:31 Temperature Pulse Rate 98 96 96 Respiratory Rate 18 12 14 Blood Pressure 123/84 Pulse Oximetry 99 98 99 03/06/20 04:45 03/06/20 05:00 03/06/20 05:01 Temperature Pulse Rate 95 97 97 Respiratory Rate 16 16 16 Blood Pressure 118/74 Pulse Oximetry 99 98 99 03/06/20 05:15 03/06/20 05:30 03/06/20 05:31 Temperature Pulse Rate 100 114 H 117 H Respiratory Rate 16 36 H 35 H Blood Pressure 137/97 H Pulse Oximetry 99 97 98 03/06/20 05:45 03/06/20 06:00 03/06/20 06:01 Temperature Pulse Rate 115 H 113 H Respiratory Rate 26 H 26 H Blood Pressure 176/109 H Pulse Oximetry 99 98 98 03/06/20 06:15 03/06/20 06:30 03/06/20 06:31 Temperature Pulse Rate 111 H 109 H 108 H Respiratory Rate 23 H 22 H 20 Blood Pressure 154/101 H Pulse Oximetry 100 100 100 03/06/20 06:45 03/06/20 06:47 03/06/20 06:48 Temperature Pulse Rate 109 H 110 H 110 H Respiratory Rate 20 21 H 24 H Blood Pressure 160/103 H Pulse Oximetry 100 100 03/06/20 06:51 03/06/20 06:59 03/06/20 07:00 Temperature Pulse Rate 111 H 109 H 110 H Respiratory Rate 24 H 20 20 Blood Pressure Pulse Oximetry 100 100 100 03/06/20 07:01 03/06/20 07:15 03/06/20 07:30 Temperature Pulse Rate 108 H 113 H 116 H Respiratory Rate 18 27 H 24 H Blood Pressure 148/92 H 148/124 H Pulse Oximetry 100 97 98 03/06/20 07:31 03/06/20 07:45 03/06/20 08:00 Temperature Pulse Rate 116 H 118 H Respiratory Rate 21 H 20 Blood Pressure Pulse Oximetry 99 96 94 03/06/20 08:06 03/06/20 08:07 03/06/20 08:15 Temperature Pulse Rate 127 H 125 H 128 H Respiratory Rate 20 19 24 H Blood Pressure 167/80 H Pulse Oximetry 92 94 92 03/06/20 08:30 03/06/20 08:55 03/06/20 09:48 Temperature Pulse Rate 130 H 136 H 110 H Respiratory Rate 25 H 29 H 24 H Blood Pressure 167/80 H Pulse Oximetry 95 93 03/06/20 09:59 03/06/20 11:45 03/06/20 11:51 Temperature 36.3 C L 36.2 C L Pulse Rate 98 108 H 109 H Respiratory Rate 20 20 20 Blood Pressure 129/84 133/88 Pulse Oximetry 96 96 98 03/06/20 12:00 03/06/20 14:00 03/06/20 14:36 Temperature Pulse Rate 104 H 111 H 100 Respiratory Rate 26 H Blood Pressure Pulse Oximetry 03/06/20 14:37 Temperature Pulse Rate 102 H Respiratory Rate 26 H Blood Pressure Pulse Oximetry 96 Intake/Output Intake/Output: Intake & Output 03/03/20 03/04/20 03/05/20 03/06/20 23:59 23:59 23:59 23:59 Intake Total 3100 Balance 3100 Meds/Results Medications: Active Medications Generic Name Dose Route Start Last Admin Trade Name Freq PRN Reason Stop Dose Admin Albuterol 5 mg 03/06/20 08:00 03/06/20 14:35 Albuterol Sulfate Neb 2.5 Mg/0.5 Ml Inh INHALATION Not Given Q6HRT NIKOLAI Acetaminophen 1,000 mg in 100 mls @ 400 mls/hr 03/06/20 03:07 Ofirmev 1,000 Mg Ivpb IVPB 03/07/20 03:08 Q6H PRN Mild Pain (1-3) or Fever Lactated Ringer's 1,000 mls @ 125 mls/hr 03/06/20 03:10 03/06/20 12:25 Lr - Lactated
[2020-03-06] MEDS: LACTATED RINGERS 1,000 ML 75 ML IV CONT (21:10)
[2020-03-06] MEDS: GABAPENTIN 300 MG CAPSULE PO (21:24)
[2020-03-06] MEDS: APIXABAN 5 MG TABLET PO (21:24)
[2020-03-06] MEDS: METOPROLOL TARTRATE 25 MG TABLET PO (21:24)
[2020-03-06] MEDS: busPIRone HCL 10 MG TABLET PO (21:24)
[2020-03-07] VITALS (25 sets, daily range): BP systolic 129–153; BP diastolic 60–114; PULSE 81–119; RESP 20–24; TEMP 36.3–37; O2SAT 93–100
[2020-03-07] MEDS: LORazepam INJ (*CRX) 2 MG/ML VIAL 1 MG IV PUSH (01:22)
[2020-03-07] MEDS: ALBUTEROL SULFATE NEB 2.5 MG/0.5 ML INH 5 MG INHALATION ×4 (02:45→19:11)
[2020-03-07] MEDS: IPRATROPIUM BR 0.02% INH SOLN 0.5 MG/2.5 ML VIAL INHALATION ×4 (02:45→19:11)
[2020-03-07] MEDS: ACETAMINOPHEN 325 MG TABLET 650 MG PO ×4 (05:11→23:08)
[2020-03-07] MEDS: methylPREDNISolone SOD SUCC 125 MG VIAL 60 MG IV PUSH ×3 (05:11→20:57)
[2020-03-07 05:36] LABS: Hematocrit 36.7 % (37.0-47.0); Hemoglobin 11.8 g/dL (12.0-15.0); Immature Granulocyte Absolute 0.02 K/mm3 (0.00-0.031); Immature Granulocyte Percent A 0.4 % (0-0.5); Lymphocytes Absolute Auto 0.68 K/mm3 (0.9-3.2); Lymphocytes Percent Auto 13.1 % (18.3-44.2); Mean Corpuscular HGB Conc 32.2 g/dl (32-36); Mean Corpuscular Hemoglobin 31.3 pg (26-34); Mean Corpuscular Volume 97.3 fl (80-100); Mean Platelet Volume 11.3 fl (7.4-10.4); Monocytes Absolute Auto 0.4 K/mm3 (0.1-0.6); Monocytes Percent Auto 8.3 % (2.6-8.5); Neutrophils Absolute Auto 4.1 K/mm3 (1.3-6.7); Neutrophils Percent Auto 78.2 % (45.5-73.1); Platelet Count Result 207 k/mm3 (150-375); Red Blood Count 3.77 M/mm3 (4.2-5.4); Red Cell Distribution Width 12.1 % (11.5-14.5); White Blood Count 5.2 K/mm3 (4.5-10.0)
[2020-03-07 05:54] LABS: Alanine Aminotransferase 21 U/L (4-35); Albumin Level 3.5 g/dL (3.5-5.1); Alkaline Phosphatase 86 U/L (38-126); Anion Gap 2.99999 mmol/L (8-16); Aspartate Amino Transferase 34 U/L (14-36); Bilirubin,Total 0.4 mg/dL (0.2-1.3); Blood Urea Nitrogen 14 mg/dL (7-17); Calcium 9.2 mg/dL (8.4-10.2); Carbon Dioxide > 40 mmol/L (22-30); Chloride 89 mmol/L (98-107); Estimated CRCL calculation 104 ml/min; Estimated Glomerular Filt Rate > 60; Glucose 141 mg/dL (65-105); Potassium 4.6 mmol/L (3.4-5.0); Sodium 132 mmol/L (137-145)
[2020-03-07 06:04] LABS: Alveolar/Arterial O2 Gradient 50.1 mmHg; Base Excess ABG 11.4 mEq/l (+/-2.0); Carboxyhemoglobin 0.6 % THb (0-2.0); Fractional Inspired Oxygen 30 %; Methemoglobin ABG 0.1 %THb (0-1.5); Oxygen Content ABG 16.1 %vol (16.0-22.0); Oxygen Saturation ABG 95.9 % (95.0-100.0); PO2 ABG 84.8 mmHg (80.0-100.0); PO2 FiO2 Ratio Arterial Blood 2.83 %; Reduced Hemoglobin 4.3 %THb (0-5.0); pH ABG 7.381 (7.350-7.450)
[2020-03-07 06:06] LABS: Device NON-INVASIVE VENT; Modified Allen's Test Pass; PCO2 ABG 67.2 mmHg (35.0-45.0); Site Drawn RIGHT RADIAL
[2020-03-07 06:07] LABS: Non-Invasive Expiratory Pressure 8 CMH2O; Non-Invasive Inspiratory Pressure 24 CMH2O; Non-Invasive Vent Rate 20 /MIN
[2020-03-07] MEDS: METOPROLOL TARTRATE 25 MG TABLET PO ×2 (08:04→20:57)
[2020-03-07] MEDS: GABAPENTIN 300 MG CAPSULE PO ×3 (08:04→17:44)
[2020-03-07] MEDS: PANTOPRAZOLE SOD SESQUIHYDRATE 20 MG TAB PO (08:04)
[2020-03-07] MEDS: hydroCHLOROthiazide 12.5 MG CAPSULE PO (08:04)
[2020-03-07] MEDS: APIXABAN 5 MG TABLET PO ×2 (08:04→17:44)
[2020-03-07] MEDS: VENLAFAXINE HCL XR 75 MG CAP.ER.24H PO (08:04)
[2020-03-07] MEDS: busPIRone HCL 10 MG TABLET PO ×2 (08:06→21:00)
[2020-03-07] MEDS: LACTATED RINGERS 1,000 ML 75 ML IV CONT (13:06)
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
[2020-03-07] MEDS: hydrOXYzine pamoate 25 MG CAPSULE 50 MG PO (17:44)
[2020-03-07] MEDS: NICOTINE (*PBKC) 21 MG PATCH 1 PATCH TRANSDERM (17:44)
[2020-03-07 20:50] LABS: Glucose Point of Care 202 (65-105)
[2020-03-08] VITALS (15 sets, daily range): BP systolic 122–150; BP diastolic 67–96; PULSE 80–99; RESP 14–21; TEMP 36.2–36.8; O2SAT 93–100
[2020-03-08] MEDS: LACTATED RINGERS 1,000 ML 75 ML IV CONT (01:55)
[2020-03-08] MEDS: ALBUTEROL SULFATE NEB 2.5 MG/0.5 ML INH 5 MG INHALATION ×3 (02:22→14:26)
[2020-03-08] MEDS: IPRATROPIUM BR 0.02% INH SOLN 0.5 MG/2.5 ML VIAL INHALATION ×3 (02:23→14:26)
[2020-03-08] MEDS: ACETAMINOPHEN 325 MG TABLET 650 MG PO ×4 (02:40→16:08)
[2020-03-08 06:04] LABS: Alveolar/Arterial O2 Gradient 46.8 mmHg; Base Excess ABG 9.7 mEq/l (+/-2.0); Carboxyhemoglobin 0.1 % THb (0-2.0); Fractional Inspired Oxygen 32 %; HCO3 ABG 36.7 mEq/l (22.0-26.0); Methemoglobin ABG 0.1 %THb (0-1.5); Oxygen Content ABG 17.6 %vol (16.0-22.0); Oxygen Saturation ABG 97.9 % (95.0-100.0); Oxyhemoglobin 97.2 % THb (90.0-100.0); PO2 ABG 109.9 mmHg (80.0-100.0); PO2 FiO2 Ratio Arterial Blood 3.43 %; Reduced Hemoglobin 2.6 %THb (0-5.0); Total Hemoglobin 12.8 g/dL (12.0-18.0); pH ABG 7.397 (7.350-7.450)
[2020-03-08 06:06] LABS: Device BIPAP; Modified Allen's Test Pass; PCO2 ABG 61.1 mmHg (35.0-45.0); Site Drawn LEFT RADIAL
[2020-03-08 06:07] LABS: Expiratory Pressure 5 cmH2O; Inspiratory Pressure 20 cmH2O
[2020-03-08 06:56] LABS: Hematocrit 40.5 % (37.0-47.0); Mean Corpuscular HGB Conc 32.1 g/dl (32-36); Mean Corpuscular Hemoglobin 31.4 pg (26-34); Mean Corpuscular Volume 97.8 fl (80-100); Mean Platelet Volume 10.3 fl (7.4-10.4); Platelet Count Result 243 k/mm3 (150-375); Red Blood Count 4.14 M/mm3 (4.2-5.4); Red Cell Distribution Width 12.1 % (11.5-14.5); White Blood Count 5.5 K/mm3 (4.5-10.0)
[2020-03-08 07:44] LABS: Alanine Aminotransferase 24 U/L (4-35); Alkaline Phosphatase 78 U/L (38-126); Anion Gap 7 mmol/L (8-16); Aspartate Amino Transferase 40 U/L (14-36); Bilirubin,Total 0.4 mg/dL (0.2-1.3); Blood Urea Nitrogen 17 mg/dL (7-17); Carbon Dioxide 35 mmol/L (22-30); Chloride 92 mmol/L (98-107); Estimated CRCL calculation 104 ml/min; Estimated Glomerular Filt Rate > 60; Glucose 155 mg/dL (65-105); Potassium 4.5 mmol/L (3.4-5.0); Sodium 134 mmol/L (137-145)
[2020-03-08] MEDS: busPIRone HCL 10 MG TABLET PO (08:46)
[2020-03-08] MEDS: VENLAFAXINE HCL XR 75 MG CAP.ER.24H PO (08:46)
[2020-03-08] MEDS: APIXABAN 5 MG TABLET PO ×2 (08:47→16:10)
[2020-03-08] MEDS: GABAPENTIN 300 MG CAPSULE PO ×3 (08:47→16:19)
[2020-03-08] MEDS: METOPROLOL TARTRATE 25 MG TABLET PO (08:48)
[2020-03-08] MEDS: PANTOPRAZOLE SOD SESQUIHYDRATE 20 MG TAB PO (08:48)
[2020-03-08] MEDS: hydroCHLOROthiazide 12.5 MG CAPSULE PO (08:49)
[2020-03-08] MEDS: methylPREDNISolone SOD SUCC 125 MG VIAL 60 MG IV PUSH (08:49)
[2020-03-08] MEDS: hydrOXYzine pamoate 25 MG CAPSULE 50 MG PO ×3 (08:52→16:10)
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
[2020-03-08] MEDS: LIDOCAINE 5% PATCH 1 PATCH TRANSDERM (12:08)
[2020-03-08] MEDS: FLUTICASONE PROPIONATE 0.05% NA SPR 16 GM BTL (*BKC) 1 SPRAY NASAL (14:10)
== END 2020-03-08 18:05 | disposition home or self-care (01) | DRG 133 ==
LOC: ANHED 03-06 07:01 → ANHIMU 03-06 12:23
PROVIDERS: Family Medicine; Admitting Provider Family Medicine; Emergency Provider General Practice; PCP Family Medicine; Visit Provider Physician Assistant
DX: J96.21 Acute and chronic respiratory failure with hypoxia (principal); J43.9 Emphysema, unspecified; J96.22 Acute and chronic respiratory failure with hypercapnia; Z20.828 Contact with and (suspected) exposure to other viral communicable diseases; K21.9 Gastro-esophageal reflux disease without esophagitis; R91.8 Other nonspecific abnormal finding of lung field; F17.200 Nicotine dependence, unspecified, uncomplicated; D64.9 Anemia, unspecified; F41.8 Other specified anxiety disorders; M19.90 Unspecified osteoarthritis, unspecified site; Z99.81 Dependence on supplemental oxygen; Z79.01 Long term (current) use of anticoagulants; Z86.711 Personal history of pulmonary embolism; G47.30 Sleep apnea, unspecified
CPT/HCPCS: 36415; 36600; 70450; 71045; 80048; 80053; 81001; 82375; 82805; 83050; 83735; 84484; 85025; 85027; 85610; 85730; 87086; 87088; 87635; 93005; 94640; 96361; 96374; 96375; 97161; 99291; A9270; C9803; J0131; J1200; J2060; J2405; J2765; J2930; J3410; J7120; U0003

== ENCOUNTER 2020-09-24 16:44 | Outpatient (CLI) | payer OTHER, SELFPAY ==
--- NOTE | ~2020-09-24 | CT_ITS ---
EXAMINATION:CT diagnostic chest w con DATE: 09/24/2020 17:10 INDICATION: Bilateral lung nodules. TECHNIQUE: Computed tomography (CT) of the chest was performed with 75 mL Omnipaque 350 intravenous c ontrast. Automated exposure control and iterative reconstruction technique were employed. The dose-le ngth product (DLP) was 125.76 mGy-cm. COMPARISON: Chest CT 11/26/2019, PET CT 01/18/2020 FINDINGS: There is severe emphysema. There is a 5.6 x 2.3 cm mass in left upper lobe that previously measured 4.3 x 1.6 cm. The irregular shape decreases reproducibility of measurements. There is a 10 m m nodule in right upper lobe. There are multiple other scattered nodules measuring up to 7 mm. No ple ural effusion. There are nodules in the thyroid measuring up to 2.0 cm. Biopsies of two thyroid nodul es on 12/19/19 were benign and nondiagnostic, respectively. The heart size is normal. No pericardial e ffusion. There is ectasia of ascending aorta measuring 4.1 cm. There is dextrocurvature of thoracic s pine. There is a chronic compression fracture of T3. Again seen is a benign bone island in T11. IMPRESSION: 1. Left lung upper lobe mass with worsening from 11/26/2019 and with increased activity on 01/18/2020 [place] [facility] for primary bronchogenic carcinoma. Given her home oxygen use, she is likely not a candidate for CT-guided biopsy. 2. Multiple pulmonary nodules measuring up to 10 mm, stable from 11/26/2019 and without increased activ ity on prior PET, likely benign. 3. Severe emphysema. Reviewed, dictated and finalized at location A. IMPRESSION: 1. Left lung upper lobe mass with worsening from 11/26/2019 and with increased ac tivity on 01/18/2020 suspicious for primary bronchogenic carcinoma. Given her ho me oxygen use, she is likely not a candidate for CT-guided biopsy. 2. Multiple pulmonary nodules measuring up to 10 mm, stable from 11/26/2019 and w ithout increased activity on prior PET, likely benign. 3. Severe emphysema.
[2020-09-24 17:04] LABS: Estimated Glomerular Filt Rate > 60
== END 2020-09-24 16:45 | disposition home or self-care (01) ==
PROVIDERS: PCP Family Medicine; Visit Provider Internal Medicine Hematology & Oncology
DX: R91.8 Other nonspecific abnormal finding of lung field (principal); J43.9 Emphysema, unspecified
CPT/HCPCS: 71260; Q9967

== ENCOUNTER 2020-12-04 11:30 | Emergency (ER) | payer OTHER, SELFPAY ==
[2020-12-04] VITALS (20 sets, daily range): BP systolic 103–149; BP diastolic 77–96; PULSE 91–115; RESP 11–22; TEMP 36.9; O2SAT 95–100
--- NOTE | ~2020-12-04 | XR_ITS ---
EXAMINATION: XR chest 1V portable DATE: 12/04/2020 12:11 INDICATION: Cough. TECHNIQUE: A single frontal view of the chest was obtained on 2 radiographs. COMPARISON: Chest single view 03/06/2020, chest CT 09/24/2020 FINDINGS: The lungs are hyperexpanded with lucencies and reticular opacities, consistent with emphyse ma. A nodule in right upper lung zone correlates with a rib deformity by CT. There is a spiculated ma ss in left lung upper lobe. No pleural effusion or pneumothorax. The heart size is normal. IMPRESSION: 1. Worsened mass in left lung upper lobe suspicious for primary bronchogenic carcinoma versus infecti on/scarring. 2. Severe emphysema. Reviewed, dictated and finalized at location A. IMPRESSION: 1. Worsened mass in left lung upper lobe suspicious for primary bronchogenic ca rcinoma versus infection/scarring. 2. Severe emphysema.
--- NOTE | ~2020-12-04 | CT_ITS ---
EXAMINATION: CT abdomen pelvis w con DATE: 12/04/2020 12:49 INDICATION: Abdominal pain. Nausea and vomiting. TECHNIQUE: Computed tomography (CT) of the abdomen and pelvis was performed with 100 mL Omnipaque 350 intravenous contrast. Automated exposure control and iterative reconstruction technique were employe d. The dose-length product was 213.05 mGy-cm. COMPARISON: PET/CT 01/18/2020 FINDINGS: The visualized portions of the lung bases demonstrate emphysema. There are a few 3 mm nodul es in the lungs, likely benign. No pleural effusion. The heart size is normal. No pericardial effusio n. There is a 6 mm cyst in the liver. The gallbladder, spleen, pancreas, and adrenal glands are charley l. There is cortical thinning of right kidney. Left kidney is normal. No dilated loops of bowel. The appendix is normal. There are no pathologically enlarged lymph nodes. There is no free intraperitonea l fluid. There is mild lumbar spondylosis. IMPRESSION: 1. No etiology for the patient's symptoms. 2. Severe emphysema. Reviewed, dictated and finalized at location A.
--- NOTE | 2020-12-04 11:39 | ECG_ITS ---
Measurements Intervals [place] Rate: 94 P: 87 [place]: 150 QRS: 75 QRSD: 85 T: 77 QT: 356 QTc: 447 Interpretive Statements SINUS RHYTHM RIGHT ATRIAL ENLARGEMENT MINIMAL Q WAVES- ANTEROLATERAL LEADS BASELINE ARTIFACT- II, III, AVR, AVL, AVF, V3 BORDERLINE ECG Electronically Signed On 12-04-2020 13:30:01 CDT by Dick Woodard D.O.
[2020-12-04 12:09] LABS: Basophils Absolute Auto 0.1 K/mm3 (0.0-0.1); Basophils Percent Auto 0.6 % (0.2-1.2); Eosinophils Absolute Auto 0.1 K/mm3 (0-0.3); Eosinophils Percent Auto 1.5 % (0-4.4); Hematocrit 46.8 % (37.0-47.0); Immature Granulocyte Absolute 0.02 K/mm3 (0.00-0.031); Immature Granulocyte Percent A 0.3 % (0-0.5); Lymphocytes Absolute Auto 1.46 K/mm3 (0.9-3.2); Lymphocytes Percent Auto 18.6 % (18.3-44.2); Mean Corpuscular HGB Conc 32.1 g/dl (32-36); Mean Corpuscular Hemoglobin 31.3 pg (26-34); Mean Corpuscular Volume 97.5 fl (80-100); Mean Platelet Volume 11.1 fl (7.4-10.4); Monocytes Absolute Auto 0.6 K/mm3 (0.1-0.6); Monocytes Percent Auto 8.1 % (2.6-8.5); Neutrophils Absolute Auto 5.6 K/mm3 (1.3-6.7); Neutrophils Percent Auto 70.9 % (45.5-73.1); Platelet Count Result 277 k/mm3 (150-375); Red Cell Distribution Width 11.9 % (11.5-14.5); White Blood Count 7.9 K/mm3 (4.5-10.0)
[2020-12-04 12:14] LABS: Alanine Aminotransferase 24 U/L (4-35); Albumin Level 4.8 g/dL (3.5-5.1); Alkaline Phosphatase 123 U/L (38-126); Anion Gap 8 mmol/L (8-16); Aspartate Amino Transferase 39 U/L (14-36); Bilirubin,Total 0.7 mg/dL (0.2-1.3); Blood Urea Nitrogen 16 mg/dL (7-17); Calcium 10.2 mg/dL (8.4-10.2); Carbon Dioxide 38 mmol/L (22-30); Chloride 85 mmol/L (98-107); Estimated CRCL calculation 56 ml/min; Estimated Glomerular Filt Rate > 60; Glucose 153 mg/dL (65-110); Lipase 39 U/L (23-300); Potassium 4.9 mmol/L (3.4-5.0); Sodium 131 mmol/L (137-145)
[2020-12-04 12:15] LABS: INR 0.9; Prothrombin Time 11.9 Seconds (11.1-14.7)
[2020-12-04 12:16] LABS: Partial Thromboplastin Time 28.2 SECONDS (22.3-36.8)
--- NOTE | 2020-12-04 12:21 | ED.GENADULT ---
HPI - General Adult General Chief complaint: Abdominal Pain Stated complaint: HTN,NAUSEA,ABD PAIN Time Seen by Provider: 12/04/20 11:36 Source: RN notes reviewed History of Present Illness HPI narrative: Patient presents to emergency department from home via EMS for hypertension patient states her blood pressures intermittently running high over the past several days she states that with that she will have intermittent headaches as well as intermittent feelings of shortness of breath as well as nausea vomiting states she has Zofran at home for history of chronic nausea states she does have COPD is chronically on 2 L nasal cannula she denies any fevers or chills chest pain or any other symptoms Related Data Home Medications Medication Instructions Recorded Confirmed Eliquis 5 mg PO BID 04/30/19 03/06/20 Incruse Ellipta 1 inh INHALATION DAILY 04/30/19 03/06/20 budesonide-formoterol [Symbicort] 2 puff INHALATION Q12H 04/30/19 03/06/20 gabapentin 300 mg PO TID 04/30/19 03/06/20 hydroxyzine pamoate 50 mg PO QID PRN 04/30/19 03/06/20 venlafaxine 75 mg PO DAILY 04/30/19 03/06/20 buspirone 10 mg PO BID PRN 11/26/19 03/06/20 metoprolol tartrate 25 mg PO BID 11/26/19 03/06/20 hydrochlorothiazide 12.5 mg PO DAILY 02/05/20 03/06/20 methocarbamol 750 mg PO TID 02/05/20 03/06/20 omeprazole 20 mg PO DAILY 02/06/20 03/06/20 Allergies Allergy/AdvReac Type Severity Reaction Status Date / Time nitrofurantoin Allergy Unknown HIVES Verified 12/04/20 11:39 oxycodone AdvReac Unknown NAUSEA, Verified 12/04/20 11:39 HEART RACING Review of Systems Review of Systems: Gen.: Denies fevers or chills Eyes: Denies eye pain or visual change ENT: Denies congestion Respiratory: Reports short of breath CV: Denies chest pain or palpitations reports elevated blood pressure GI: See HPI Musculoskeletal: Denies back pain or muscle pain Neuro: Denies numbness, tingling, weakness or focal weakness Skin: Denies rash Except as documented, all other systems reviewed and negative PMFSH Past Medical History Medical History Anemia Anxiety Arm fracture, left Arthritis Back pain Bronchitis Chronic respiratory failure COPD (chronic obstructive pulmonary disease) Depression Emphysema of lung Foot fracture, right GERD (gastroesophageal reflux disease) History of pulmonary embolus (PE) Inguinal hernia Kidney stones On home O2 2 L at rest and 3 L with activity Pneumonia Pulmonary embolism Pulmonary hypertension Pulmonary nodules suspicious for bronchogenic carcinoma Sleep apnea Tobacco abuse UTI (urinary tract infection) Surgical History Surgical History Hx of arthroscopy of left knee Hx of elbow surgery lt elbow Hx of inguinal hernia repair Hx of tonsillectomy Hx of tubal ligation Family History Family History Father , at 46 of lung CA Lung cancer Mother Cerebrovascular accident Grandparent Diabetes mellitus Sibling Lung cancer Social History Social History Social History: the patient has 5 children. She is . And she lives with her sister at this time. Her sister is a durable power contracts attorney for healthcare the patient is a full code. Smoking packs per day: 0.25 Smoking cigarettes per day: 5.0 Years smoked: 45 Smoking pack-years: 11.25 Smoking status: Light tobacco smoker Tobacco type: cigarettes Second hand tobacco smoke exposure: Yes Alcohol intake: never Substance use: never Substance use type: does not use Additional living arrangements comments: stays with cousin Additional occupation/education comments: disable Gender identity (if verbalized by the patient): Female Spiritual care concerns: No Agree to blood products
[2020-12-04] MEDS: ONDANSETRON INJ 4 MG/2 ML VIAL IV PUSH (12:38)
[2020-12-04 12:46] LABS: Add Urine Microscopic? YES; Appearance Urine Clear (Clear); Bilirubin Urine Negative (Negative); Blood Urine Negative (Negative); Color Urine Yellow (Yellow); Glucose Urine UA Negative (Negative); Ketones Urine Trace mg/dL (Negative); Leukocyte Esterase Ur Negative LEU/UL (Negative); Nitrate Urine Negative (Negative); Protein Urine Negative (Negative); RBC Urine 0-2 /hpf (0-2); Squamous Epithelial Cell Urine Rare /hpf (Few); Urobilinogen Urine Negative mg/dL (<2.0); WBC Urine 0-3 /hpf
[2020-12-04] MEDS: SODIUM CHLORIDE 0.9% IV 1,000 ML 999 ML IV CONT (13:16)
--- NOTE | 2020-12-04 13:48 | PC.NURSE ---
Patient being PO challenged at this time.
[2020-12-04] MEDS: HYDROcodone/acetaminophen (*CRX) 5-325 MG TABLET 1 TAB PO (14:07)
[2020-12-04] MEDS: ALPRAZolam (*CRX) 0.25 MG TABLET PO (16:01)
== END 2020-12-04 17:48 | disposition home or self-care (01) ==
PROVIDERS: Emergency Provider Emergency Medicine; PCP Family Medicine
DX: I10 Essential (primary) hypertension (principal); F41.9 Anxiety disorder, unspecified; R11.2 Nausea with vomiting, unspecified; J43.9 Emphysema, unspecified; Z99.81 Dependence on supplemental oxygen; M19.90 Unspecified osteoarthritis, unspecified site; J96.10 Chronic respiratory failure, unspecified whether with hypoxia or hypercapnia; K21.9 Gastro-esophageal reflux disease without esophagitis; I27.20 Pulmonary hypertension, unspecified; Z86.2 Personal history of diseases of the blood and blood-forming organs and certain disorders involving the immune mechanism; Z79.01 Long term (current) use of anticoagulants; Z86.711 Personal history of pulmonary embolism; Z87.440 Personal history of urinary (tract) infections; Z87.01 Personal history of pneumonia (recurrent); F17.210 Nicotine dependence, cigarettes, uncomplicated; R94.31 Abnormal electrocardiogram [ECG] [EKG]
CPT/HCPCS: 36415; 51701; 71045; 74177; 80053; 81001; 83690; 85025; 85610; 85730; 93005; 96361; 96374; 99284; A9270; J2405; J7030; Q9967

== ENCOUNTER 2021-02-10 12:27 | Emergency (ER) | payer OTHER, SELFPAY ==
--- NOTE | ~2021-02-10 | XR_ITS ---
EXAMINATION: XR hand LT min 3V DATE: 02/10/2021 13:24 INDICATION: Left hand and wrist pain post fall TECHNIQUE: Posteroanterior, oblique and lateral views of the left hand were obtained. COMPARISON: Left wrist radiographs dated 03/10/2016 FINDINGS: Comminuted intra-articular fracture of the distal left radius. There is dorsal angulation resulting i n approximately 25 degrees dorsal tilt of the distal articular surface. There is suggestion of some d orsal displacement of a fragment compressing the dorsal aspect of the articular surface however the f racture plane is not adequately profiled for quantitative assessment. There is an additional minimall y displaced fracture extending across the midportion of the ulnar styloid process. Alignment of the b ones of the left hand remains normal. No other fractures identified. Severe osteoarthritis at the fir st carpometacarpal joint. Mild osteoarthritis at the wrist, triscaphe, first carpometacarpal, first m etacarpophalangeal and multiple interphalangeal joints. Prominent soft tissue swelling about the left hand and wrist. IMPRESSION: 1. Comminuted intra-articular fracture of the distal left radius with dorsal angulation and likely mi ld dorsal displacement and dorsal sided fragment. 2. Minimally displaced ulnar styloid avulsion fracture. 3. 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 Reviewed, dictated and finalized at location A. IMPRESSION: 1. Comminuted intra-articular fracture of the distal left radius with dorsal an gulation and likely mild dorsal displacement and dorsal sided fragment. 2. Minimally displaced ulnar styloid avulsion fracture. 3. 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
[2021-02-10 13:07] VITALS: BP 113/81; PULSE 96; RESP 14; TEMP 36.8; O2SAT 98
[2021-02-10 13:55] VITALS: PULSE 93; RESP 24; TEMP 36.7; O2SAT 98
[2021-02-10] MEDS: HYDROcodone/acetaminophen (*CRX) 7.5-325 MG TABLET 1 TAB PO (14:56)
[2021-02-10 15:45] VITALS: BP 129/86; PULSE 76; RESP 18; O2SAT 99
--- NOTE | 2021-02-10 16:43 | ED.GENADULT ---
HPI - General Adult General Chief complaint: Extremity Injury, Upper Stated complaint: fall/left wrist injury Time Seen by Provider: 02/10/21 14:12 Source: patient Mode of arrival: ambulatory Limitations: no limitations History of Present Illness HPI narrative: Patient presents with chief complaint of pain to the left hand that she sustained after falling this morning and using the left hand to brace herself around 11 AM. Patient reports she took one of her hydrocodone for pain and it was decreased. Related Data Home Medications Medication Instructions Recorded Confirmed Eliquis 5 mg PO BID 04/30/19 03/06/20 Incruse Ellipta 1 inh INHALATION DAILY 04/30/19 03/06/20 budesonide-formoterol [Symbicort] 2 puff INHALATION Q12H 04/30/19 03/06/20 gabapentin 300 mg PO TID 04/30/19 03/06/20 hydroxyzine pamoate 50 mg PO QID PRN 04/30/19 03/06/20 venlafaxine 75 mg PO DAILY 04/30/19 03/06/20 buspirone 10 mg PO BID PRN 11/26/19 03/06/20 metoprolol tartrate 25 mg PO BID 11/26/19 03/06/20 hydrochlorothiazide 12.5 mg PO DAILY 02/05/20 03/06/20 methocarbamol 750 mg PO TID 02/05/20 03/06/20 omeprazole 20 mg PO DAILY 02/06/20 03/06/20 Allergies Allergy/AdvReac Type Severity Reaction Status Date / Time nitrofurantoin Allergy Unknown HIVES Verified 12/04/20 11:39 oxycodone AdvReac Unknown NAUSEA, Verified 12/04/20 11:39 HEART RACING Review of Systems Review of Systems: CONSTITUTIONAL: Denies fever, chills, or sweats. EYES: Denies visual changes, redness, or discharge. ENT: Denies rhinorrhea, congestion, sore throat, or otalgia. CARDIOVASCULAR: Denies chest pain, palpitations, or edema. RESPIRATORY: Denies cough or dyspnea. GASTROINTESTINAL: Denies abdominal pain, nausea, vomiting, or diarrhea. GENITOURINARY: Denies dysuria or hematuria. SKIN: Denies rash or itching. MUSCULOSKELETAL: Reports left wrist pain denies back pain, joint pain, or myalgia. NEUROLOGIC: Denies headache, numbness, dizziness, or weakness. PSYCHIATRIC: Denies anxiety or depression. [facility] Past Medical History Medical History Anemia Anxiety Arm fracture, left Arthritis Back pain Bronchitis Chronic respiratory failure COPD (chronic obstructive pulmonary disease) Depression Emphysema of lung Foot fracture, right GERD (gastroesophageal reflux disease) History of pulmonary embolus (PE) Inguinal hernia Kidney stones On home O2 2 L at rest and 3 L with activity Pneumonia Pulmonary embolism Pulmonary hypertension Pulmonary nodules suspicious for bronchogenic carcinoma Sleep apnea Tobacco abuse UTI (urinary tract infection) Surgical History Surgical History Hx of arthroscopy of left knee Hx of elbow surgery lt elbow Hx of inguinal hernia repair Hx of tonsillectomy Hx of tubal ligation Family History Family History Father , at 46 of lung CA Lung cancer Mother Cerebrovascular accident Grandparent Diabetes mellitus Sibling Lung cancer Social History Social History Social History: the patient has 5 children. She is . And she lives with her sister at this time. Her sister is a durable power assistant district attorney for healthcare the patient is a full code. Smoking packs per day: 0.25 Smoking cigarettes per day: 5.0 Years smoked: 45 Smoking pack-years: 11.25 Smoking status: Light tobacco smoker Tobacco type: cigarettes Second hand tobacco smoke exposure: Yes Alcohol intake: never Substance use: never Substance use type: does not use Additional living arrangements comments: stays with cousin Additional occupation/education comments: disable Gender identity (if verbalized by the patient): Female Spiritual care concerns: No Agree to blood products: Ye
[2021-02-10 17:11] VITALS: BP 113/74; PULSE 84; RESP 20; O2SAT 99
== END 2021-02-10 17:12 | disposition home or self-care (01) ==
PROVIDERS: Emergency Provider Emergency Medicine; PCP Family Medicine
DX: S52.572A Other intraarticular fracture of lower end of left radius, initial encounter for closed fracture (principal); S52.612A Displaced fracture of left ulna styloid process, initial encounter for closed fracture; J96.10 Chronic respiratory failure, unspecified whether with hypoxia or hypercapnia; J43.9 Emphysema, unspecified; Z99.81 Dependence on supplemental oxygen; I27.20 Pulmonary hypertension, unspecified; G47.30 Sleep apnea, unspecified; F32.9 Major depressive disorder, single episode, unspecified; F41.9 Anxiety disorder, unspecified; K21.9 Gastro-esophageal reflux disease without esophagitis; M18.9 Osteoarthritis of first carpometacarpal joint, unspecified; Z86.711 Personal history of pulmonary embolism; Z87.442 Personal history of urinary calculi; Z87.01 Personal history of pneumonia (recurrent); Z87.440 Personal history of urinary (tract) infections; Z79.01 Long term (current) use of anticoagulants; F17.210 Nicotine dependence, cigarettes, uncomplicated; W19.XXXA Unspecified fall, initial encounter
CPT/HCPCS: 29125; 73130; 99284; A4565; A9270

== ENCOUNTER 2021-02-25 09:30 | Outpatient (CLI) | payer OTHER, SELFPAY ==
--- NOTE | ~2021-02-25 | PE_ITS ---
EXAMINATION: PET skull to mid thigh DATE: 02/25/2021 11:55 INDICATION: Left upper lobe mass TECHNIQUE: Blood glucose level was 168 mg/dL. 9.761 mCi of 18-fluorodeoxyglucose (18-FDG) was adminis tered i.v. Low dose computed tomography (CT) images were acquired from the base of the brain to the p roximal thighs for attenuation correction and anatomic localization. Positron emission tomography (PE T) images were acquired in the same distribution beginning 55 minutes after injection. Images includi ng fused PET/CT images were reconstructed in axial, coronal, and sagittal planes. Automated exposure control technique was employed. The dose-length product was 281.02mGy-cm. COMPARISON: None FINDINGS: Head/neck: There is symmetric increased activity in the oral cavity and involving multiple muscles in the head a nd neck without CT correlate, which is likely physiologic. No pathologically enlarged cervical lympha denopathy or suspicious foci of increased FDG uptake in the visualized head or neck. Chest: Severe emphysema. There has been significant decrease in size of a spiculated centrally cavitary mass . As previously noted the irregular margins as well as interval changes in local architectural distor tion under direct comparison difficult. Utilizing local pulmonary landmarks the mass which previously measured approximately 5.7 x 2.8 cm and which appeared more uniformly solid has decreased to approxi mately 4.1 x 2.2 cm. The degree of FDG uptake, previously with maximal CV of 4.2 has decreased to 2.0 . The interval improvement in both size and degree of FDG uptake and the development of central gas-f illed cavities with thin hernandez suggests this may represent a region of localized pneumonia. Similar t here is been decrease in size from 11 mm to 9 mm of a right upper lobe nodule which is without discer nible FDG uptake in the current study. 4-5 mm triangular likely intrafissural lymph node without FDG uptake at the caudal aspect of the left major fissure. Small region of atelectasis or pneumonia at th e anterior sulcus of the anterobasilar left lower lobe with negligible FDG uptake in discernible to t he adjacent diaphragm. No other new airspace opacities/pulmonary nodules, pleural effusion or pneumot horax. Heart size is normal. Mild scattered atherosclerotic coronary artery calcific location. No per icardial or pleural effusion. No pathologically enlarged or FDG avid thoracic lymphadenopathy. Is add itional scattered increased muscular FDG uptake in the chest wall and right upper extremities which i s without radiologic correlate and likely physiologic. Abdomen/pelvis/proximal thighs: Physiologic renal accumulation and excretion of FDG activity in the kidneys, bladder and along portio ns of the ureters. Normal degree and heterogenous pattern of increased uptake throughout the liver wi thout radiologic correlate or dominant FDG avid lesion. The gallbladder, pancreas, spleen, bilateral adrenal glands and uterus are normal. Mild uptake scattered throughout the bowels without radiologic correlate, also likely physiologic. Mild uptake associated with the the musculature in the proximal b ilateral thighs which is without radiologic correlate and likely physiologic. No other abnormal foci of increased FDG uptake or pathologically enlarged lymphadenopathy in the abdomen, pelvis or proximal thighs. Musculoskeletal: Diffuse mild spondylosis of the cervical, thoracic and lumbar spine. Small sclerotic likely bone yoni nds without corresponding FDG uptake at the T11 vertebral body. No other suspicious lytic, blastic or FDG avid bone lesions. IMPRESSION: 1. Decreased in size and FDG activity and interval development of central cavitation within a now 4.1 x 2.2 cm cavitary mass in the left upper lobe which in the absence of any interval treatment would f avor an infectious/inflammatory etiology over malignancy. Recommend con
[2021-02-25 09:45] LABS: Glucose Point of Care 168 mg/dl (65-105)
[2021-02-25 14:13] LABS: Vitamin D 25 Hydroxy < 12.8 ng/mL
== END 2021-02-25 09:31 | disposition home or self-care (01) ==
PROVIDERS: PCP Family Medicine; Visit Provider Internal Medicine Hematology & Oncology
DX: R91.8 Other nonspecific abnormal finding of lung field (principal); J43.9 Emphysema, unspecified
CPT/HCPCS: 36415; 78815; 82306; A9552

== ENCOUNTER 2021-02-26 21:08 | Inpatient (IN) | payer OTHER, SELFPAY ==
[2021-02-26] VITALS (17 sets, daily range): BP systolic 126–137; BP diastolic 86–91; PULSE 90–96; RESP 12–24; TEMP 36.6; O2SAT 98–100
--- NOTE | ~2021-02-26 | XR_ITS ---
EXAMINATION: XR abdomen NG/feed tube insert INDICATION: OG insertion TECHNIQUE: Portable AP KUB-NG at 0137 hours COMPARISON: None available FINDINGS: The OG tube is in the stomach which is moderately distended. There is a large volume of col onic stool. IMPRESSION: 1. OG tube in the stomach. Reviewed, dictated and finalized at location B. IMPRESSION: 1. OG tube in the stomach.
--- NOTE | ~2021-02-26 | XR_ITS ---
EXAMINATION: XR chest 1V portable DATE: 03/03/2021 05:28 INDICATION: Respiratory failure. TECHNIQUE: A single frontal view of the chest was obtained on 2 radiographs. COMPARISON: Chest single view 03/02/2021 FINDINGS: The lungs are hyperexpanded with lucencies, consistent with emphysema. Again seen is a mass in left upper lobe. No pleural effusion or pneumothorax. The heart size is normal. IMPRESSION: 1. Severe emphysema. 2. Persistent mass in left lung upper lobe, which may be chronic infection or malignancy. Reviewed, dictated and finalized at location A. GRATION ASSOCIATE IMPRESSION: 1. Severe emphysema. 2. Persistent mass in left lung upper lobe, which may be chronic infection or m alignancy.
--- NOTE | ~2021-02-26 | XR_ITS ---
XR chest 1V portable DATE: 02/26/2021 22:15 INDICATION: Shortness of breath. History of COPD. Smoker. TECHNIQUE: Portable AP chest on 03/15/2021 2208 hours COMPARISON: Portable AP chest on 12/04/2020 1159 hours 09/24/2020 CT chest FINDINGS: There is severe bilateral hyperinflation and flattening the diaphragm as well is bullous ch dhaval particularly in the upper lung zones, consistent with severe bullous emphysema. There is prominent irregular asymmetric density in left upper lung which may be due to scarring and/o r malignancy. Normal heart size. No hilar or mediastinal enlargement is evident. No pleural effusion. No pulmonary vascular congestion or pneumothorax is detected. IMPRESSION: Severe bullous emphysema Chronic asymmetric irregular increased density in the left upper lung field; differential includes sc arring and malignancy. No interval change since 12/04/2020. Reviewed, dictated and finalized at location A. IMPRESSION: Severe bullous emphysema Chronic asymmetric irregular increased density in the left upper lung field; di fferential includes scarring and malignancy. No interval change since 12/04/2020 .
--- NOTE | ~2021-02-26 | XR_ITS ---
EXAMINATION: XR chest 1V portable DATE: 03/01/2021 05:56 INDICATION: Respiratory failure TECHNIQUE: frontal view of the chest was obtained. COMPARISON: Chest radiograph dated 02/28/2021 FINDINGS: Endotracheal tube tip 7.3 cm above the syed. Nasogastric tube with the proximal stomach and distal tip collimated beyond the inferior margin of the [id number]. Emphysema with increased lucency and architectural distortion in the bilateral mid and upper lung zon es. Unchanged nodular opacity along a linear band of atelectasis/scarring in the left upper lung zone . No new airspace opacities, pulmonary edema, pleural effusion or pneumothorax. The cardiomediastinal silhouette is normal. IMPRESSION: 1. Endotracheal tube tip 7.3 cm above the syed. Consider advancement by 4-5 cm. 2. Emphysema with unchanged nodular opacity in the left upper lung zone. Reviewed, dictated and finalized at location A. IMPRESSION: 1. Endotracheal tube tip 7.3 cm above the syed. Consider advancement by 4-5 c m. 2. Emphysema with unchanged nodular opacity in the left upper lung zone.
--- NOTE | ~2021-02-26 | XR_ITS ---
EXAMINATION: XR chest ET placement INDICATION: Respiratory failure TECHNIQUE: Portable AP chest at 0136 hours COMPARISON: 02/26/2021 FINDINGS: The endotracheal tube ends approximately 2.9 cm above the syed. The nasogastric tube is f ollowed as far as the stomach. Its tip is beyond the inferior margin of the radiograph. The lungs are hyperinflated but free of acute opacities. There is no pleural effusion or pneumothorax. The cardiom ediastinal silhouette is normal. IMPRESSION: 1. Endotracheal and nasogastric tubes in adequate position. 2. Emphysema. Reviewed, dictated and finalized at location B.
--- NOTE | ~2021-02-26 | XR_ITS ---
EXAMINATION: XR chest 1V portable DATE: 02/28/2021 05:42 INDICATION: Respiratory failure TECHNIQUE: frontal view of the chest was obtained. COMPARISON: Chest radiograph dated 02/27/2021 FINDINGS: Endotracheal tube tip 5.5 cm above the syed.. Nasogastric tube extends below the left hemidiaphrag m with distal tip collimated off the study. Emphysema with hyperexpansion of lungs and increased lucency and architectural distortion in the uppe r lung zones. Unchanged nodular opacity in the left upper lung zone. No new airspace opacities, pleur al effusion or pneumothorax. The cardiomediastinal silhouette is normal. IMPRESSION: 1. Emphysema with unchanged nodular opacity left upper lung zones Reviewed, dictated and finalized at location A.
--- NOTE | ~2021-02-26 | XR_ITS ---
EXAMINATION: XR chest ET placement EXAM DATE: 02/27/2021 14:10 INDICATION: Check for endotracheal tube placement after patient movement. TECHNIQUE: Portable AP frontal chest x-ray was obtained. Comparison is made to prior examination from earlier same date. FINDINGS: Endotracheal tube tip is 5 centimeters above the syed. Feeding tube, diaphragms or colli mated off the lower aspect of study but likely below the diaphragm. Correlate with prior CT from September No apical pneumothorax. Ill-defined left upper lobe spiculated nodular opacity. Cardiomediastinal si lhouette is normal. There are no osseous abnormalities identified. IMPRESSION: 1. ET tube in position. 2. Left upper lobe spiculated opacity probably benign correlating with prior imaging. Reviewed, dictated and finalized at location A. IMPRESSION: 1. ET tube in position. 2. Left upper lobe spiculated opacity probably benign correlating with prior i maging.
--- NOTE | ~2021-02-26 | XR_ITS ---
EXAMINATION: XR chest 1V portable DATE: 03/02/2021 05:26 INDICATION: Respiratory failure TECHNIQUE: frontal view of the chest was obtained. COMPARISON: Chest radiograph dated 03/01/2021 FINDINGS: Endotracheal tube tip 5.9 cm above the syed. Nasogastric tube with proximal side-port in the body of the stomach and distal tip collimated off the study. Emphysema with hyperexpansion of lungs and increased lucency with architectural distortion in the roula ateral mid and upper lung zones. Unchanged nodular opacity along a band of atelectasis/scarring in th e left midlung zone. No pleural effusion or pneumothorax. The cardiomediastinal silhouette is normal. IMPRESSION: 1. Emphysema with unchanged nodular opacity in the left upper lung zone suspicious for primary bronch ogenic carcinoma as noted on chest CT dated 09/24/2020. Reviewed, dictated and finalized at location A. 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 Emphysema with unchanged nodular opacity in the left upper lung zone suspici ous for primary bronchogenic carcinoma as noted on chest CT dated 09/24/2020.
--- NOTE | ~2021-02-26 | XR_ITS ---
EXAMINATION: XR chest 1V portable DATE: 03/04/2021 05:46 INDICATION: Respiratory failure. TECHNIQUE: A single frontal view of the chest was obtained on 2 radiographs. COMPARISON: Chest single view 03/03/2021 FINDINGS: The lungs are hyperexpanded with lucencies, consistent with emphysema. Again seen is a mass in left upper lobe. No pleural effusion or pneumothorax. The heart size is normal. Skin folds overli e right chest. IMPRESSION: 1. Severe emphysema. 2. Persistent mass in left lung upper lobe, which may be chronic infection or malignancy. Reviewed, dictated and finalized at location A. 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 Severe emphysema. 2. Persistent mass in left lung upper lobe, which may be chronic infection or m alignancy.
--- NOTE | 2021-02-26 21:39 | ED.SOB ---
HPI - SOB/Dyspnea General Chief Complaint: Shortness of Breath/Dyspnea Stated Complaint: SOB Time Seen by Provider: 02/26/21 21:17 Source: patient, EMS and RN notes reviewed Mode of arrival: EMS Limitations: no limitations History of Present Illness HPI Narrative: 55 year old female with history of COPD, on chronic anticoagulation, usually uses 3 L of oxygen at home had to increase her oxygen use over the past day or 2 she became increasingly short of breath and when EMS arrived she was on 5 L satting at 80%. She was started on CPAP, given albuterol and Solu-Medrol in route and arrives still with increased respiration rate moderate respiratory distress speaking 3-4 word sentences. Patient has a history of respiratory failure. Patient denies fever, denies vomiting denies hemoptysis denies productive cough, patient still smokes tobacco but unable to for the past 2 days. Related Data Home Medications Medication Instructions Recorded Confirmed Eliquis 5 mg PO BID 04/30/19 02/27/21 Incruse Ellipta 1 inh INHALATION DAILY 04/30/19 02/27/21 budesonide-formoterol [Symbicort] 2 puff INHALATION Q12H 04/30/19 02/27/21 gabapentin 300 mg PO TID 04/30/19 02/27/21 venlafaxine 75 mg PO DAILY 04/30/19 02/27/21 buspirone 10 mg PO BID 11/26/19 02/27/21 metoprolol tartrate 25 mg PO BID 11/26/19 02/27/21 methocarbamol 750 mg PO TID 02/05/20 02/27/21 omeprazole 20 mg PO DAILY 02/06/20 02/27/21 buspirone 10 mg PO DAILY PRN 02/27/21 02/27/21 hydroxyzine pamoate 50 mg PO QID PRN 02/27/21 02/27/21 Allergies Allergy/AdvReac Type Severity Reaction Status Date / Time nitrofurantoin Allergy Unknown HIVES Verified 12/04/20 11:39 oxycodone AdvReac Unknown NAUSEA, Verified 12/04/20 11:39 HEART RACING Review of Systems Review of Systems: CONSTITUTIONAL: no fever, no confusion EYES: no vision changes, no eye pain ENT: no rhinorrhea, no sore throat, no difficulty swallowing CARDIOVASCULAR: positive chest pain, positive leg edema RESPIRATORY: positive cough, positive shortness of breath, no hemoptysis GASTROINTESTINAL: no abdominal pain, no nausea, no vomiting, no diarrhea GENITOURINARY: no flank pain, no dysuria, no hematuria SKIN: no rash, no jaundice MUSCULOSKELETAL: no back pain, L wrist fracture, splint in place NEUROLOGIC: No headache, no dizziness, no focal weakness PSYCHIATRIC: No hallucinations, no suicidal ideation PMFSH Past Medical History Medical History Anemia Anxiety Arm fracture, left Arthritis Back pain Bronchitis Chronic respiratory failure COPD (chronic obstructive pulmonary disease) Depression Emphysema of lung Foot fracture, right GERD (gastroesophageal reflux disease) History of pulmonary embolus (PE) Inguinal hernia Kidney stones On home O2 2 L at rest and 3 L with activity Pneumonia Pulmonary embolism Pulmonary hypertension Pulmonary nodules suspicious for bronchogenic carcinoma Sleep apnea Tobacco abuse UTI (urinary tract infection) Surgical History Surgical History Hx of arthroscopy of left knee Hx of elbow surgery lt elbow Hx of inguinal hernia repair Hx of tonsillectomy Hx of tubal ligation Family History Family History Father , at 46 of lung CA Lung cancer Mother Cerebrovascular accident Grandparent Diabetes mellitus Sibling Lung cancer Social History Social History Social History: the patient has 5 children. She is . And she lives with her sister at this time. Her sister is a durable power assistant district attorney for healthcare the patient is a full code. Smoking packs per day: 0.25 Smoking cigarettes per day: 5.0 Years smoked: 45 Smoking pack-years: 11.25 Smoking status: Light tobacco smoker Second hand tobacco smoke exposure: Yes
[2021-02-26 21:48] LABS: Basophils Absolute Auto 0.1 K/mm3 (0.0-0.1); Basophils Percent Auto 0.6 % (0.2-1.2); Eosinophils Absolute Auto 0.1 K/mm3 (0-0.3); Eosinophils Percent Auto 0.6 % (0-4.4); Hematocrit 38.3 % (37.0-47.0); Hemoglobin 11.9 g/dL (12.0-15.0); Immature Granulocyte Absolute 0.04 K/mm3 (0.00-0.031); Immature Granulocyte Percent A 0.4 % (0-0.5); Lymphocytes Percent Auto 15.3 % (18.3-44.2); Mean Corpuscular HGB Conc 31.1 g/dl (32-36); Mean Corpuscular Hemoglobin 31.6 pg (26-34); Mean Corpuscular Volume 101.6 fl (80-100); Mean Platelet Volume 11.7 fl (7.4-10.4); Monocytes Absolute Auto 0.8 K/mm3 (0.1-0.6); Monocytes Percent Auto 7.7 % (2.6-8.5); Neutrophils Absolute Auto 7.4 K/mm3 (1.3-6.7); Neutrophils Percent Auto 75.4 % (45.5-73.1); Platelet Count Result 216 k/mm3 (150-375); Red Blood Count 3.77 M/mm3 (4.2-5.4); Red Cell Distribution Width 12.3 % (11.5-14.5); White Blood Count 9.8 K/mm3 (4.5-10.0)
[2021-02-26 21:57] LABS: Lactic Acid Reflex 1.1 mmol/L (0.7-2.1)
[2021-02-26 22:02] LABS: Alveolar/Arterial O2 Gradient 124.9 mmHg; Base Excess ABG 11.4 mEq/l (+/-2.0); Fractional Inspired Oxygen 50 %; Oxygen Content ABG 16.4 %vol (16.0-22.0); Oxygen Saturation ABG 97.1 % (95.0-100.0); Oxyhemoglobin 89.4 % THb (90.0-100.0); PO2 ABG 115.6 mmHg (80.0-100.0); PO2 FiO2 Ratio Arterial Blood 2.31 %; Total Hemoglobin 12.9 g/dL (12.0-18.0)
[2021-02-26 22:03] LABS: Alanine Aminotransferase 19 U/L (4-35); Albumin Level 3.7 g/dL (3.5-5.1); Alkaline Phosphatase 99 U/L (38-126); Aspartate Amino Transferase 36 U/L (14-36); Bilirubin,Total 0.6 mg/dL (0.2-1.3); Blood Urea Nitrogen 21 mg/dL (7-17); Calcium 8.9 mg/dL (8.4-10.2); Carbon Dioxide > 40 mmol/L (22-30); Chloride 83 mmol/L (98-107); Estimated Glomerular Filt Rate > 60; Glucose 152 mg/dL (65-110); INR 0.9; Magnesium 1.7 mg/dL (1.6-2.3); Potassium 4.7 mmol/L (3.4-5.0); Prothrombin Time 11.7 Seconds (11.1-14.7); Sodium 132 mmol/L (137-145)
[2021-02-26 22:04] LABS: PCO2 ABG 103.1 mmHg (35.0-45.0); pH ABG 7.238 (7.350-7.450)
[2021-02-26 22:04] LABS: Partial Thromboplastin Time 30.6 SECONDS (22.3-36.8)
[2021-02-26 22:05] LABS: Device BIPAP; Expiratory Pressure 6 cmH2O; Inspiratory Pressure 14 cmH2O; Modified Allen's Test Pass; Site Drawn RIGHT RADIAL
[2021-02-26] MEDS: ALBUTEROL SULFATE NEB 2.5 MG/0.5 ML INH 5 MG INHALATION (22:10)
[2021-02-26 22:14] LABS: Troponin I < 0.012 ng/mL (0.000-0.034)
--- NOTE | 2021-02-26 22:43 | ECG_ITS ---
Rate 91 AR 138 QRSd 105 QT 368 QTc 453 --[place]-- P 91 QRS 80 T 75 SINUS RHYTHM RIGHT ATRIAL ENLARGEMENT MINIMAL Q WAVES- ANTEROLATERAL LEADS BORDERLINE T WAVE ABNORMALITY- HIGH LATERAL LEADS BASELINE ARTIFACT- I, II, III, AVL, AVF BORDERLINE ECG Electronically Signed On 02-28-2021 10:36:23 CDT by Dick OSMAN
[2021-02-26 23:20] LABS: Alveolar/Arterial O2 Gradient 145.3 mmHg; Base Excess ABG 15.4 mEq/l (+/-2.0); Fractional Inspired Oxygen 50 %; HCO3 ABG 47.1 mEq/l (22.0-26.0); Oxygen Content ABG 16.2 %vol (16.0-22.0); Oxygen Saturation ABG 95.3 % (95.0-100.0); Oxyhemoglobin 89.4 % THb (90.0-100.0); PO2 ABG 92.7 mmHg (80.0-100.0); PO2 FiO2 Ratio Arterial Blood 1.85 %; Total Hemoglobin 12.8 g/dL (12.0-18.0)
[2021-02-26 23:21] LABS: pH ABG 7.268 (7.350-7.450)
[2021-02-26 23:21] LABS: NT Pro B Type Natriuretic Pept 1670 pg/mL (5-100)
[2021-02-26 23:22] LABS: Device BIPAP; Modified Allen's Test Pass; PCO2 ABG 105.3 mmHg (35.0-45.0); Site Drawn LEFT BRACHIAL
[2021-02-26 23:23] LABS: Expiratory Pressure 6 cmH2O; Inspiratory Pressure 14 cmH2O
[2021-02-26] MEDS: ALBUTEROL SULFATE NEB 2.5 MG/0.5 ML INH 10 MG INHALATION (23:31)
[2021-02-26] MEDS: MAGNESIUM SULF 2 GM/WATER 50ML 2 GM/50 ML BAG IVPB (23:33)
[2021-02-26 23:55] LABS: Add Urine Microscopic? YES; Appearance Urine Cloudy (Clear); Bacteria Urine 3+ /hpf; Bilirubin Urine Negative (Negative); Blood Urine Negative (Negative); Color Urine Amber (Yellow); Glucose Urine UA Negative (Negative); Ketones Urine 1+ mg/dL (Negative); Leukocyte Esterase Ur 3+ LEU/UL (Negative); Mucus Urine Rare /lpf; Nitrate Urine Positive (Negative); Protein Urine 2+ mg/dL (Negative); Squamous Epithelial Cell Urine Few /hpf (Few); Urobilinogen Urine Negative mg/dL (<2.0); WBC Urine >75 /hpf
[2021-02-27] VITALS (49 sets, daily range): BP systolic 81–145; BP diastolic 68–94; PULSE 86–108; RESP 13–26; TEMP 36.8–37.1; O2SAT 95–100; BMI 17.8
[2021-02-27 00:48] LABS: Alveolar/Arterial O2 Gradient 49.6 mmHg; Base Excess ABG 18.5 mEq/l (+/-2.0); Fractional Inspired Oxygen 50 %; Oxygen Content ABG 16.9 %vol (16.0-22.0); Oxygen Saturation ABG 98.5 % (95.0-100.0); Oxyhemoglobin 92.1 % THb (90.0-100.0); PO2 ABG 161.4 mmHg (80.0-100.0); PO2 FiO2 Ratio Arterial Blood 3.23 %; Total Hemoglobin 12.8 g/dL (12.0-18.0)
[2021-02-27 00:51] LABS: Modified Allen's Test Pass; PCO2 ABG 129.3 mmHg (35.0-45.0); Site Drawn RIGHT RADIAL; pH ABG 7.222 (7.350-7.450)
[2021-02-27 00:52] LABS: Device NON-INVASIVE VENT
[2021-02-27 01:18] LABS: Troponin I < 0.012 ng/mL (0.000-0.034)
[2021-02-27] MEDS: PROPOFOL IV EMULSION 100 ML 1.62 MG IV CONT (02:16)
--- NOTE | 2021-02-27 02:30 | PC.NURSE ---
0122: 20mg of etomidate and 100mg of succinylcholine administered IV Push per EDP SAMIA Gomez. 0124: pt intubated. size 7.5 tube and 22cm at the lip. 0130: 2mg of versed and 25mcg of fentanyl given IV push per EDP SAMIA Gomez. 0147: 54mg (5.4 mL) of Propofol given IV push by EDP Patricia
[2021-02-27] MEDS: fentaNYL CITRATE INJ (*CRX) 100 MCG/2 ML VIAL 25 MCG IV PUSH (02:52)
--- NOTE | 2021-02-27 04:15 | ADMGEN ---
This patient, Sharifa Mosquera, was admitted to Intensive Care Unit-12. Patient/family oriented to hospital policies and general routines including ID bracelet, bed and alarms, visiting hours, pain management, procedures, bathroom and other care routines, personal items, smoking policy, room service/diet, and visiting hours. Information on how to activate the Rapid Response Team has been discussed. Patient/Family are encouraged to report perceived risks to care and to ask questions if they do not understand what they are told or what they should do.
--- NOTE | 2021-02-27 04:35 | PM.IMHP ---
H&P: HPI History of Present Illness Date/Time: 02/27/21 04:35 Chief Complaint: Shortness of breath Narrative: 55 year old female with history of COPD on chronic home oxygen 3 L, on chronic anticoagulation, presents to the ED today with increasing shortness of breath for the past day or so. She called in EMS and was noted to be 80% on 5 L oxygen. She was started on CPAP given albuterol and Solu-Medrol in route and still had increased respiratory rate and moderate respiratory distress while in the ED. She was switched over to BiPAP and was given continuous nebs which improved some of her breathing problems. Her ABG showed severe hypercapnia with pH 7.22 and pCO2 of 103. She was also noted to be cyanotic on arrival with tachypnea and moderate respiratory distress. Repeat ABG after being on BiPAP was done which showed increased pCO2 up to 129 and hence patient was electively intubated. She is placed on propofol for sedation and placed on full ventilator support. She is further admitted to the ICU for further evaluation and management. Review of Systems Review of Systems: ROS unobtainable: Yes unobtainable due to endotracheal tube and unobtainable due to medical condition PMFSH Past Medical History Medical History Anemia Anxiety Arm fracture, left Arthritis Back pain Bronchitis Chronic respiratory failure COPD (chronic obstructive pulmonary disease) Depression Emphysema of lung Foot fracture, right GERD (gastroesophageal reflux disease) History of pulmonary embolus (PE) Inguinal hernia Kidney stones On home O2 2 L at rest and 3 L with activity Pneumonia Pulmonary embolism Pulmonary hypertension Pulmonary nodules suspicious for bronchogenic carcinoma Sleep apnea Tobacco abuse UTI (urinary tract infection) Surgical History Surgical History Hx of arthroscopy of left knee Hx of elbow surgery lt elbow Hx of inguinal hernia repair Hx of tonsillectomy Hx of tubal ligation Family History Family History Father , at 46 of lung CA Lung cancer Mother Cerebrovascular accident Grandparent Diabetes mellitus Sibling Lung cancer Social History Social History Social History: the patient has 5 children. She is . And she lives with her sister at this time. Her sister is a durable power finance attorney for healthcare the patient is a full code. Smoking packs per day: 0.25 Smoking cigarettes per day: 5.0 Years smoked: 45 Smoking pack-years: 11.25 Smoking status: Light tobacco smoker Tobacco type: cigarettes Second hand tobacco smoke exposure: Yes Alcohol intake: never Substance use: never Substance use type: does not use Additional living arrangements comments: stays with cousin Additional occupation/education comments: disable Gender identity (if verbalized by the patient): Female Spiritual care concerns: No Agree to blood products: Yes Meds Home Medications and Allergies Home Medications Medication Instructions Recorded Confirmed Type Eliquis 5 mg PO BID 04/30/19 03/06/20 History Incruse Ellipta 1 inh INHALATION DAILY 04/30/19 03/06/20 History budesonide-formoterol [Symbicort] 2 puff INHALATION Q12H 04/30/19 03/06/20 History gabapentin 300 mg PO TID 04/30/19 03/06/20 History hydroxyzine pamoate 50 mg PO QID PRN 04/30/19 03/06/20 History venlafaxine 75 mg PO DAILY 04/30/19 03/06/20 History buspirone 10 mg PO BID PRN 11/26/19 03/06/20 History metoprolol tartrate 25 mg PO BID 11/26/19 03/06/20 History albuterol sulfate 1.25 mg INHALATION Q6H PRN #90 ml 12/01/19 03/06/20 Rx hydrochlorothiazide 12.5 mg PO DAILY 02/05/20 03/06/20 History methocarbamol 750 mg PO TID 02/05/20 03/06/20 History omeprazole 20 mg PO DAILY
[2021-02-27] MEDS: SODIUM CHLORIDE 0.9% IV 1,000 ML 125 ML IV CONT (04:44)
[2021-02-27] MEDS: PROPOFOL IV EMULSION 100 ML 12.96 MG IV CONT (04:46)
[2021-02-27 05:51] LABS: Alveolar/Arterial O2 Gradient 95.6 mmHg; Base Excess ABG 8.4 mEq/l (+/-2.0); Fractional Inspired Oxygen 30 %; HCO3 ABG 33.3 mEq/l (22.0-26.0); Oxygen Content ABG 16.7 %vol (16.0-22.0); Oxygen Saturation ABG 93.1 % (95.0-100.0); Oxyhemoglobin 91.4 % THb (90.0-100.0); PCO2 ABG 47.2 mmHg (35.0-45.0); PO2 ABG 62.8 mmHg (80.0-100.0); PO2 FiO2 Ratio Arterial Blood 2.09 %; Site Drawn RIGHT RADIAL; pH ABG 7.467 (7.350-7.450)
[2021-02-27 05:52] LABS: Device VENTILATOR; Modified Allen's Test Pass
[2021-02-27 05:53] LABS: Arterial Blood Gas PEEP 5 cmH2O; Arterial Blood Gas Tidal Volume 350 ml; Arterial Blood Gas Vent Mode CMV; Arterial Blood Gas Ventilator rate 20 /MIN
[2021-02-27] MEDS: FUROSEMIDE INJ 40 MG/4 ML VIAL 20 MG IV PUSH (06:05)
[2021-02-27] MEDS: methylPREDNISolone SOD SUCC 125 MG VIAL 60 MG IV PUSH ×3 (06:07→17:29)
[2021-02-27] MEDS: MINERAL OIL/WHITE PETROLATUM OINTMENT 1 APPLIC EACH EYE ×2 (09:04→20:40)
[2021-02-27] MEDS: APIXABAN 5 MG TABLET FEED TUBE ×2 (09:04→20:40)
[2021-02-27] MEDS: ALBUTEROL SULFATE NEB 2.5 MG/0.5 ML INH INHALATION ×5 (10:04→22:40)
[2021-02-27] MEDS: PROPOFOL IV EMULSION 100 ML 14.58 MG IV CONT (12:12)
--- NOTE | 2021-02-27 12:19 | PC.NURSE ---
patient ventilator alarming, patient thrashing head back and forth - disconnected from ventilator. Chewing on ET tube, pulling blankets off. Asked if hot and patient mouthed Yes. Increased sedation and held patient hand until relaxed.
--- NOTE | 2021-02-27 13:27 | WPDCNINT ---
Assessment and Plan Assessment and plan (1) Acute respiratory failure with hypoxia and hypercapnia: Code(s): J96.01 - Acute respiratory failure with hypoxia; J96.02 - Acute respiratory failure with hypercapnia Status: Acute Assessment and Plan: acute on chronic respiratory failure secondary to severe COPD. Chest x-ray showed severe bullous emphysema with no significant infiltrates Continue full mechanical ventilation support to prevent hypoxemia/hypercarbia and end organ damage. ABG and PCXR reviewed and will repeat in am. Low tidal volume ventilation strategy to prevent volutrauma continue steroids, Bronchodilators she was started on Rocephin azithromycin which will be continued she is currently sedated with propofol and will add fentanyl (2) COPD exacerbation: Code(s): J44.1 - Chronic obstructive pulmonary disease with (acute) exacerbation Status: Acute Assessment and Plan: see above (3) UTI (urinary tract infection): Code(s): N39.0 - Urinary tract infection, site not specified Status: Acute Assessment and Plan: urine and blood cultures she is on Rocephin (4) Suspected COVID-19 virus infection: Code(s): Z20.828 - Contact with and (suspected) exposure to other viral communicable diseases Status: Acute Assessment and Plan: PCR sent and pending patient is in isolation (5) History of pulmonary embolus (PE): Code(s): Z86.711 - Personal history of pulmonary embolism Status: Acute Assessment and Plan: continue Eliquis Additional Plan DVT prophylaxis - currently on Eliquis Stress ulcer prophylaxis - add PPI Nutrition - start Tube Feeds Code Status - Full Code for now patient is unable to participate at this time Total Critical Care Time -30 minutes Due to a high probability of clinically significant, life threatening deterioration, the patient required my highest level of preparedness to intervene emergently and I personally spent this critical care time directly and personally managing the patient. This critical care time included obtaining a history; examining the patient; pulse oximetry; ordering and review of studies; arranging urgent treatment with development of a management plan; evaluation of patient's response to treatment; frequent reassessment; and discussions with other providers. It was exclusive of separately billable procedures and treating other patients and teaching time. Please see Assessment and Plan section and the rest of the note for further information on patient assessment and treatment [employer]visor [employer] Consult Note Consult date: 02/27/21 HPI: Sharifa Mosquera is a 55 year old female with history of COPD on chronic home oxygen 3 L, on chronic anticoagulation, presents to the ED last night with increasing shortness of breath for the past day or so. She called in EMS and was noted to be 80% on 5 L oxygen. She was started on CPAP given albuterol and Solu-Medrol in route and still had increased respiratory rate and moderate respiratory distress while in the ED. She was switched over to BiPAP and was given continuous nebs. her hypercarbia continue to worsen and patient was eventually intubated and placed on mechanical ventilation. Was then admitted to ICU for further evaluation management. At this time patient is sedated and intubated unable to provide any meaningful history. History obtained from chart and ED physician signout Review of Systems Review of Systems: ROS unobtainable: Yes unobtainable due to endotracheal tube, unobtainable due to medical condition and unobtainable due to mental status PMFSH Past Medical History Medical History Anemia Anxiety Arm fracture, left Arthritis Back pain Bronchitis Chronic respiratory failure COPD (chronic obstructive pulmonary disease) Depression Emphysema of lung Foot fracture, right GERD (gastroesophageal refl
[2021-02-27] MEDS: FENTANYL 2,500MCG/NS250ML(*CRX 2,500 MCG/250 ML BAG 10 MCG IV CONT (14:17)
[2021-02-27 17:27] LABS: Glucose Point of Care 146 mg/dl (65-105)
[2021-02-27] MEDS: PROPOFOL IV EMULSION 100 ML 16.2 MG IV CONT ×2 (17:28→22:37)
[2021-02-27 22:24] LABS: SARS-CoV-2 RNA PCR Negative
[2021-02-28] VITALS (41 sets, daily range): BP systolic 79–125; BP diastolic 64–83; PULSE 74–137; RESP 16–24; TEMP 35.8–37.2; O2SAT 90–96
[2021-02-28] MEDS: methylPREDNISolone SOD SUCC 125 MG VIAL 60 MG IV PUSH ×5 (00:33→23:16)
[2021-02-28 00:46] LABS: Glucose Point of Care 180 mg/dl (65-105)
[2021-02-28] MEDS: PROPOFOL IV EMULSION 100 ML 16.2 MG IV CONT ×2 (03:29→22:28)
[2021-02-28] MEDS: ALBUTEROL SULFATE NEB 2.5 MG/0.5 ML INH INHALATION ×5 (04:06→19:52)
[2021-02-28 04:31] LABS: Alveolar/Arterial O2 Gradient 75.6 mmHg; Base Excess ABG 15.3 mEq/l (+/-2.0); Carboxyhemoglobin 0.3 % THb (0-2.0); Fractional Inspired Oxygen 30 %; Methemoglobin ABG 0.2 %THb (0-1.5); Oxygen Content ABG 15.8 %vol (16.0-22.0); Oxygen Saturation ABG 95.4 % (95.0-100.0); PCO2 ABG 55.4 mmHg (35.0-45.0); PO2 ABG 73.2 mmHg (80.0-100.0); PO2 FiO2 Ratio Arterial Blood 2.44 %; Reduced Hemoglobin 5.5 %THb (0-5.0); Total Hemoglobin 11.9 g/dL (12.0-18.0); pH ABG 7.487 (7.350-7.450)
[2021-02-28 04:32] LABS: Arterial Blood Gas PEEP 5 cmH2O; Arterial Blood Gas Tidal Volume 350 ml; Arterial Blood Gas Vent Mode CMV; Arterial Blood Gas Ventilator rate 20 /MIN; Device VENTILATOR; Modified Allen's Test Pass; Site Drawn RIGHT RADIAL
[2021-02-28 05:08] LABS: Hematocrit 33.7 % (37.0-47.0); Hemoglobin 11.2 g/dL (12.0-15.0); Immature Granulocyte Absolute 0.04 K/mm3 (0.00-0.031); Immature Granulocyte Percent A 0.4 % (0-0.5); Lymphocytes Absolute Auto 0.41 K/mm3 (0.9-3.2); Mean Corpuscular HGB Conc 33.2 g/dl (32-36); Mean Corpuscular Hemoglobin 31.6 pg (26-34); Mean Corpuscular Volume 95.2 fl (80-100); Mean Platelet Volume 12.1 fl (7.4-10.4); Monocytes Absolute Auto 0.4 K/mm3 (0.1-0.6); Monocytes Percent Auto 3.6 % (2.6-8.5); Neutrophils Absolute Auto 9.4 K/mm3 (1.3-6.7); Platelet Count Result 209 k/mm3 (150-375); Red Blood Count 3.54 M/mm3 (4.2-5.4); Red Cell Distribution Width 12.3 % (11.5-14.5); White Blood Count 10.2 K/mm3 (4.5-10.0)
[2021-02-28 05:35] LABS: Alanine Aminotransferase 17 U/L (4-35); Albumin Level 3.3 g/dL (3.5-5.1); Alkaline Phosphatase 80 U/L (38-126); Aspartate Amino Transferase 31 U/L (14-36); Bilirubin,Total 0.5 mg/dL (0.2-1.3); Blood Urea Nitrogen 27 mg/dL (7-17); Calcium 8.8 mg/dL (8.4-10.2); Carbon Dioxide > 40 mmol/L (22-30); Chloride 82 mmol/L (98-107); Estimated CRCL calculation 70 ml/min; Estimated Glomerular Filt Rate > 60; Glucose 214 mg/dL (65-110); Potassium 4.4 mmol/L (3.4-5.0); Sodium 127 mmol/L (137-145)
[2021-02-28] MEDS: INSULIN ASPART (*BKC) 100 UNITS/ML SUB-Q ×2 (05:57→12:10)
[2021-02-28 06:09] LABS: Glucose Point of Care 246 mg/dl (65-105)
[2021-02-28] MEDS: APIXABAN 5 MG TABLET FEED TUBE ×2 (08:13→20:49)
[2021-02-28] MEDS: MINERAL OIL/WHITE PETROLATUM OINTMENT 1 APPLIC EACH EYE ×2 (08:13→20:49)
[2021-02-28] MEDS: PANTOPRAZOLE SODIUM IV 40 MG VIAL IV PUSH (08:13)
[2021-02-28 08:14] LABS: Non-Invasive Expiratory Pressure 6 CMH2O; Non-Invasive Inspiratory Pressure 14 CMH2O; Non-Invasive Vent Rate 16 /MIN
[2021-02-28] MEDS: INSULIN GLARGINE (*BKC) 100 UNITS/ML 15 UNITS SUB-Q (08:14)
--- NOTE | 2021-02-28 09:19 | WPDINTPN ---
Progress Note: A&P Assessment and Plan (1) Acute respiratory failure with hypoxia and hypercapnia: Code(s): J96.01 - Acute respiratory failure with hypoxia; J96.02 - Acute respiratory failure with hypercapnia Status: Acute Assessment and Plan: acute on chronic respiratory failure secondary to severe COPD. Chest x-ray showed severe bullous emphysema with no significant infiltrates 02/28 failed breathing trial today within few minutes due to increased tachypnea high RSBI and respiratory distress with use of accessory muscles. Patient indicated that she was struggling to breathe. Was placed back on assist control and sedation was increased Continue full mechanical ventilation support to prevent hypoxemia/hypercarbia and end organ damage. Will start Precedex infusion to rule out any anxiety component ABG reviewed and will repeat in am. chest x-ray reviewed Low tidal volume ventilation strategy to prevent volutrauma continue steroids, Bronchodilators she was started on Rocephin azithromycin which will be continued (2) COPD exacerbation: Code(s): J44.1 - Chronic obstructive pulmonary disease with (acute) exacerbation Status: Acute Assessment and Plan: see above (3) UTI (urinary tract infection): Code(s): N39.0 - Urinary tract infection, site not specified Status: Acute Assessment and Plan: urine and blood cultures she is on Rocephin (4) Suspected COVID-19 virus infection: Code(s): Z20.828 - Contact with and (suspected) exposure to other viral communicable diseases Status: Acute Assessment and Plan: PCR sent and negative she is off of isolation now (5) History of pulmonary embolus (PE): Code(s): Z86.711 - Personal history of pulmonary embolism Status: Acute Assessment and Plan: continue Eliquis (6) Hyponatremia: Code(s): E87.1 - Hypo-osmolality and hyponatremia Status: Acute Assessment and Plan: changed free water flushes to normal saline (7) Hyperglycemia: Code(s): R73.9 - Hyperglycemia, unspecified Status: Acute Assessment and Plan: sliding scale insulin and add Lantus Additional Plan DVT prophylaxis - currently on Eliquis Stress ulcer prophylaxis - add PPI Nutrition - continue Tube Feeds Code Status - Full Code for now patient is unable to participate at this time Total Critical Care Time -30 minutes Due to a high probability of clinically significant, life threatening deterioration, the patient required my highest level of preparedness to intervene emergently and I personally spent this critical care time directly and personally managing the patient. This critical care time included obtaining a history; examining the patient; pulse oximetry; ordering and review of studies; arranging urgent treatment with development of a management plan; evaluation of patient's response to treatment; frequent reassessment; and discussions with other providers. It was exclusive of separately billable procedures and treating other patients and teaching time. Please see Assessment and Plan section and the rest of the note for further information on patient assessment and treatment Subjective Date/time seen: 02/28/21 Overnight events reviewed. Afebrile Continues to be on mechanical ventilation Continues to be on Sedation with propofol and fentanyl Vitals acceptable Review of Systems Review of Systems: ROS unobtainable: Yes unobtainable due to endotracheal tube, unobtainable due to medical condition and unobtainable due to mental status Exam Narrative: General: Pt is frail old cachectic female who is sedated, intubated and on mechanical ventilation Lungs/Chest: patient has a barrel chest, Trachea central decreased air movement throughout, No crackles or wheezing. Cardiac: RRR. Normal S1 S2. No murmurs Circulation: Pedal pulses are intact and symmetrical. Abdomen: Decreased
[2021-02-28] MEDS: dexmedeTOMIDine 400 MCG/100 ML 400 MCG/100 ML BAG 6.69 MCG IV CONT (09:22)
--- NOTE | 2021-02-28 10:37 | PCDIET ---
Nutrition Follow-Up Complete: Nutrition Diagnosis: Inadequate oral intake related to oral intubation as evidenced by NPO. Nutrition Goal: Patient to meet estimated nutritional needs. Goal met. Patient tolerating Glucerna 1.2 at 50mL/hr goal rate with 50mL NS flush every 4 hours. Goal tube feeding over 22 hours/day provides 1320kcal (1748kcal with Propofol at current rate), 66g protein and 885mL free water. If Propofol is continued at current rate, may need to consider decreasing feedings. Last recorded weight is 53.5 kg which is increased from last review. -I/O. Bowel Motility: No documented BM as of yet. Labs Reviewed: WBC (10.2), RBC (3.54), Hgb (11.2), Hct (33.7), Glu (214), BUN (27), Cr (0.6), Na (127), Alb (3.3) Meds Noted: Propofol (rate of 16.2mL/hr provides 428kcal per day), Albuterol, Zithromax, Novolog, Rocephin, Precedex, Solu Medrol, Protonix Additional Notes: No documented skin breakdown. Nutrition Monitoring and Evaluation: Follow up every Wednesday/Wednesday. Follow daily in ICU rounds.
[2021-02-28] MEDS: PROPOFOL IV EMULSION 100 ML 6.48 MG IV CONT (11:35)
[2021-02-28 12:20] LABS: Glucose Point of Care 204 mg/dl (65-105)
[2021-02-28 17:50] LABS: Glucose Point of Care 169 mg/dl (65-105)
[2021-02-28] MEDS: IPRATROPIUM BR 0.02% INH SOLN 0.5 MG/2.5 ML VIAL INHALATION (19:52)
[2021-02-28] MEDS: dexmedeTOMIDine 400 MCG/100 ML 400 MCG/100 ML BAG 9.36 MCG IV CONT (20:47)
[2021-02-28 23:29] LABS: Glucose Point of Care 160 mg/dl (65-105)
[2021-03-01] VITALS (74 sets, daily range): BP systolic 101–136; BP diastolic 73–93; PULSE 57–105; RESP 17–35; TEMP 33.4–37.6; O2SAT 93–97
[2021-03-01] MEDS: ALBUTEROL SULFATE NEB 2.5 MG/0.5 ML INH INHALATION ×7 (00:27→23:42)
[2021-03-01] MEDS: PROPOFOL IV EMULSION 100 ML 16.2 MG IV CONT (02:41)
[2021-03-01] MEDS: IPRATROPIUM BR 0.02% INH SOLN 0.5 MG/2.5 ML VIAL INHALATION ×2 (03:17→20:27)
[2021-03-01] MEDS: dexmedeTOMIDine 400 MCG/100 ML 400 MCG/100 ML BAG 20.06 MCG IV CONT ×5 (04:09→23:36)
[2021-03-01 05:16] LABS: Alveolar/Arterial O2 Gradient 75.7 mmHg; Base Excess ABG 17.3 mEq/l (+/-2.0); Fractional Inspired Oxygen 30 %; Methemoglobin ABG 0.1 %THb (0-1.5); Oxygen Content ABG 15.4 %vol (16.0-22.0); Oxygen Saturation ABG 89.3 % (95.0-100.0); Oxyhemoglobin 87.4 % THb (90.0-100.0); PO2 ABG 57.1 mmHg (80.0-100.0); Reduced Hemoglobin 12.5 %THb (0-5.0); Total Hemoglobin 12.5 g/dL (12.0-18.0); pH ABG 7.432 (7.350-7.450)
[2021-03-01 05:17] LABS: Site Drawn RIGHT BRACHIAL
[2021-03-01 05:18] LABS: Arterial Blood Gas PEEP 5 cmH2O; Arterial Blood Gas Tidal Volume 320 ml; Arterial Blood Gas Vent Mode CMV; Arterial Blood Gas Ventilator rate 20 /MIN; Device VENTILATOR
[2021-03-01] MEDS: MIDAZOLAM HCL (*CRX) 2 MG/2 ML VIAL 4 MG IV PUSH (05:24)
[2021-03-01] MEDS: methylPREDNISolone SOD SUCC 125 MG VIAL 60 MG IV PUSH ×2 (05:54→18:10)
[2021-03-01] MEDS: INSULIN ASPART (*BKC) 100 UNITS/ML SUB-Q ×2 (06:33→12:39)
[2021-03-01 06:34] LABS: Glucose Point of Care 203 mg/dl (65-105)
[2021-03-01 07:36] LABS: Basophils Percent Auto 0.1 % (0.2-1.2); Hematocrit 45.8 % (37.0-47.0); Hemoglobin 14.7 g/dL (12.0-15.0); Immature Granulocyte Absolute 0.02 K/mm3 (0.00-0.031); Immature Granulocyte Percent A 0.2 % (0-0.5); Lymphocytes Absolute Auto 0.32 K/mm3 (0.9-3.2); Lymphocytes Percent Auto 3.5 % (18.3-44.2); Mean Corpuscular HGB Conc 32.1 g/dl (32-36); Mean Corpuscular Hemoglobin 31.2 pg (26-34); Mean Corpuscular Volume 97.2 fl (80-100); Mean Platelet Volume 11.9 fl (7.4-10.4); Monocytes Absolute Auto 0.4 K/mm3 (0.1-0.6); Monocytes Percent Auto 4.7 % (2.6-8.5); Neutrophils Absolute Auto 8.4 K/mm3 (1.3-6.7); Neutrophils Percent Auto 91.5 % (45.5-73.1); Platelet Count Result 218 k/mm3 (150-375); Red Blood Count 4.71 M/mm3 (4.2-5.4); Red Cell Distribution Width 12.7 % (11.5-14.5); White Blood Count 9.2 K/mm3 (4.5-10.0)
[2021-03-01 07:48] LABS: Alanine Aminotransferase 21 U/L (4-35); Albumin Level 4.2 g/dL (3.5-5.1); Alkaline Phosphatase 105 U/L (38-126); Aspartate Amino Transferase 32 U/L (14-36); Bilirubin,Total 0.3 mg/dL (0.2-1.3); Blood Urea Nitrogen 26 mg/dL (7-17); Calcium 9.7 mg/dL (8.4-10.2); Carbon Dioxide > 40 mmol/L (22-30); Chloride 88 mmol/L (98-107); Estimated CRCL calculation 78 ml/min; Estimated Glomerular Filt Rate > 60; Glucose 270 mg/dL (65-110); Magnesium 2.8 mg/dL (1.6-2.3); Potassium 4.8 mmol/L (3.4-5.0); Sodium 136 mmol/L (137-145)
[2021-03-01] MEDS: FENTANYL 2,500MCG/NS250ML(*CRX 2,500 MCG/250 ML BAG 7.5 MCG IV CONT (07:53)
[2021-03-01] MEDS: APIXABAN 5 MG TABLET FEED TUBE ×2 (07:57→21:03)
[2021-03-01] MEDS: MINERAL OIL/WHITE PETROLATUM OINTMENT 1 APPLIC EACH EYE ×2 (07:57→21:03)
[2021-03-01] MEDS: PANTOPRAZOLE SODIUM IV 40 MG VIAL IV PUSH (07:57)
--- NOTE | 2021-03-01 08:44 | WPDINTPN ---
Progress Note: A&P Assessment and Plan (1) Acute respiratory failure with hypoxia and hypercapnia: Code(s): J96.01 - Acute respiratory failure with hypoxia; J96.02 - Acute respiratory failure with hypercapnia Status: Acute Assessment and Plan: acute on chronic respiratory failure secondary to severe COPD. Chest x-ray showed severe bullous emphysema with no significant infiltrates 11/5 failed breathing trial within few minutes due to increased tachypnea high RSBI and respiratory distress with use of accessory muscles. Patient indicated that she was struggling to breathe. Was placed back on assist control and sedation was increased Continue full mechanical ventilation support to prevent hypoxemia/hypercarbia and end organ damage. Will try again breathing trial today after sedation was She is on Precedex infusion to rule out any anxiety component ABG reviewed and will repeat in am. chest x-ray reviewed -advance ET tube by 3 cm Low tidal volume ventilation strategy to prevent volutrauma continue steroids, Bronchodilators she was started on Rocephin azithromycin which will be continued (2) COPD exacerbation: Code(s): J44.1 - Chronic obstructive pulmonary disease with (acute) exacerbation Status: Acute Assessment and Plan: see above (3) UTI (urinary tract infection): Code(s): N39.0 - Urinary tract infection, site not specified Status: Acute Assessment and Plan: urine and blood cultures she is on Rocephin (4) Suspected COVID-19 virus infection: Code(s): Z20.828 - Contact with and (suspected) exposure to other viral communicable diseases Status: Acute Assessment and Plan: PCR sent and negative she is off of isolation now (5) History of pulmonary embolus (PE): Code(s): Z86.711 - Personal history of pulmonary embolism Status: Acute Assessment and Plan: continue Eliquis (6) Hyponatremia: Code(s): E87.1 - Hypo-osmolality and hyponatremia Status: Acute Assessment and Plan: changed free water flushes to normal saline (7) Hyperglycemia: Code(s): R73.9 - Hyperglycemia, unspecified Status: Acute Assessment and Plan: sliding scale insulin and add Lantus Additional Plan DVT prophylaxis - currently on Eliquis Stress ulcer prophylaxis - add PPI Nutrition - continue Tube Feeds Code Status - Full Code for now patient is unable to participate at this time Total Critical Care Time -31 minutes Due to a high probability of clinically significant, life threatening deterioration, the patient required my highest level of preparedness to intervene emergently and I personally spent this critical care time directly and personally managing the patient. This critical care time included obtaining a history; examining the patient; pulse oximetry; ordering and review of studies; arranging urgent treatment with development of a management plan; evaluation of patient's response to treatment; frequent reassessment; and discussions with other providers. It was exclusive of separately billable procedures and treating other patients and teaching time. Please see Assessment and Plan section and the rest of the note for further information on patient assessment and treatment Subjective Date/time seen: 03/01/21 08:44 Overnight events reviewed. Afebrile Continues to be on mechanical ventilation Continues to be on sedation which had to be increased as patient is agitated and trying to cough her tube out Vitals acceptable Review of Systems Review of Systems: ROS unobtainable: Yes unobtainable due to endotracheal tube, unobtainable due to medical condition and unobtainable due to mental status Exam Narrative: General: Pt is frail old cachectic female who is sedated, intubated and on mechanical ventilation Lungs/Chest: patient has a barrel chest, Trachea central decreased air movement throughout, No crackles o
[2021-03-01] MEDS: INSULIN GLARGINE (*BKC) 100 UNITS/ML 15 UNITS SUB-Q (08:53)
[2021-03-01] MEDS: PROPOFOL IV EMULSION 100 ML 12.96 MG IV CONT (09:05)
[2021-03-01 12:55] LABS: Glucose Point of Care 204 mg/dl (65-105)
[2021-03-01] MEDS: PROPOFOL IV EMULSION 100 ML 9.72 MG IV CONT (16:13)
[2021-03-01 18:17] LABS: Glucose Point of Care 109 mg/dl (65-105)
--- NOTE | 2021-03-01 19:08 | PM.IMPN ---
Progress Note: A&P Assessment and Plan (1) Acute respiratory failure with hypoxia and hypercapnia: Code(s): J96.01 - Acute respiratory failure with hypoxia; J96.02 - Acute respiratory failure with hypercapnia Status: Acute (2) COPD exacerbation: Code(s): J44.1 - Chronic obstructive pulmonary disease with (acute) exacerbation Status: Acute Assessment and Plan: Years be sure you she she also or (3) UTI (urinary tract infection): Code(s): N39.0 - Urinary tract infection, site not specified Status: Acute (4) Suspected COVID-19 virus infection: Code(s): Z20.828 - Contact with and (suspected) exposure to other viral communicable diseases Status: Acute Assessment and Plan: (5) History of pulmonary embolus (PE): Code(s): Z86.711 - Personal history of pulmonary embolism Status: Acute (6) Hyponatremia: Code(s): E87.1 - Hypo-osmolality and hyponatremia Status: Acute (7) Hyperglycemia: Code(s): R73.9 - Hyperglycemia, unspecified Status: Acute Additional Plan 03/01/21 acute on chronic respiratory failure secondary to severe COPD. full mechanical ventilation support to prevent hypoxemia/hypercarbia and end organ damage. vent per director of family service center Precedex infusion PRN agitation continue steroids, Bronchodilators continue Rocephin azithromycin cont weaning trials urine and blood cultures pending siding scale insulin and add Lantus PPI Eliquis Tube feeds Subjective Date/time seen: 03/01/21 19:08 pt agitated intubated RN notified Exam Narrative: GEN: agitated, mild distress, mouthing that she feels hot, elderly frail female HEENT: NCAT, MMM, EOMI, ETT Neck: no JVD Heart: S1S2 RRR Lungs: symmetric chest rise Abd: soft, NT Ext: moves all, no cyanosis, no clubbing, no edema Neuro: unable to assess, is communicating in a meaningful way mouthing words Objective Data Vital Signs Vital Signs: Vital Signs - 24 hr 02/28/21 19:52 02/28/21 19:53 02/28/21 20:00 Temperature 98.0 F Pulse Rate 79 82 100 Respiratory Rate 21 H 20 Blood Pressure 95/73 L Pulse Oximetry 93 93 02/28/21 22:00 02/28/21 23:00 02/28/21 23:38 Temperature 97.4 F L Pulse Rate 94 81 Respiratory Rate 20 Blood Pressure 106/64 Pulse Oximetry 94 94 03/01/21 00:00 03/01/21 00:01 03/01/21 00:28 Temperature Pulse Rate 88 88 82 Respiratory Rate 23 H 25 H Blood Pressure 104/76 Pulse Oximetry 96 03/01/21 00:35 03/01/21 02:00 03/01/21 02:01 Temperature Pulse Rate 82 78 78 Respiratory Rate 28 H 18 Blood Pressure 103/79 Pulse Oximetry 94 03/01/21 02:20 03/01/21 03:18 03/01/21 04:00 Temperature 97.4 F L Pulse Rate 85 82 89 Respiratory Rate 23 H 25 H Blood Pressure 107/85 Pulse Oximetry 94 93 03/01/21 04:10 03/01/21 04:25 03/01/21 04:45 Temperature Pulse Rate 88 85 84 Respiratory Rate 18 22 H 21 H Blood Pressure Pulse Oximetry 03/01/21 05:10 03/01/21 06:00 03/01/21 06:01 Temperature Pulse Rate 81 72 72 Respiratory Rate 20 Blood Pressure 111/87 Pulse Oximetry 96 96 03/01/21 06:28 03/01/21 07:53 03/01/21 07:57 Temperature Pulse Rate 69 69 69 Respiratory Rate 25 H 27 H 27 H Blood Pressure Pulse Oximetry 03/01/21 08:00 03/01/21 08:17 03/01/21 08:40 Temperature 95.7 F L Pulse Rate 67 67 82 Respiratory Rate 27 H 25 H 27 H Blood Pressure 125/91 H Pulse Oximetry 97 03/01/21 08:45 03/01/21 09:05 03/01/21 09:06 Temperature Pulse Rate 82 93 93 Respiratory Rate 35 H 35 H Blood Pressure Pulse Oximetry 95 03/01/21 10:00 03/01/21 10:35 03/01/21 10:36 Temperature Pulse Rate 64 64 64 Respiratory Rate 20 20 20 Blood Pressure 123/82 Pulse Oximetry 96 03/01/21 11:40 03/01/21 11:55 03/01/21 12:00 Temperature Pulse Rate 61 80 59 L Respiratory Rate 26 H 23 H Blood Pressure 136/93 H Pulse Oximetry 96 96
[2021-03-01 23:10] LABS: Glucose Point of Care 141 mg/dl (65-105)
[2021-03-02] VITALS (30 sets, daily range): BP systolic 91–169; BP diastolic 68–103; PULSE 75–134; RESP 16–27; TEMP 36.9–37.7; O2SAT 92–100
--- NOTE | 2021-03-02 01:10 | PC.NURSE ---
Daylight Savings Time For Daylight Savings Time Ending in the Fall - Clocks are moved back. For Daylight Savings Time Beginning in the Spring - Clocks are moved ahead. For [facility], the time of change occurs at 0200 hrs. Time is taken from the line server. This entry on the patient's chart recognizes the change in time reflected during documentation. Example: 2 entries for vital signs may be charted for 0200 hrs.
[2021-03-02] MEDS: PROPOFOL IV EMULSION 100 ML 16.2 MG IV CONT (01:44)
[2021-03-02] MEDS: ALBUTEROL SULFATE NEB 2.5 MG/0.5 ML INH INHALATION ×3 (03:02→22:13)
[2021-03-02] MEDS: dexmedeTOMIDine 400 MCG/100 ML 400 MCG/100 ML BAG 20.06 MCG IV CONT ×2 (03:36→08:29)
[2021-03-02 04:39] LABS: Alveolar/Arterial O2 Gradient 77.2 mmHg; Base Excess ABG 11.8 mEq/l (+/-2.0); Carboxyhemoglobin 0.3 % THb (0-2.0); Device VENTILATOR; Fractional Inspired Oxygen 30 %; HCO3 ABG 37.4 mEq/l (22.0-26.0); Methemoglobin ABG 0.1 %THb (0-1.5); Oxygen Content ABG 15.9 %vol (16.0-22.0); Oxygen Saturation ABG 95.3 % (95.0-100.0); Oxyhemoglobin 93.3 % THb (90.0-100.0); PCO2 ABG 53.6 mmHg (35.0-45.0); PO2 ABG 73.7 mmHg (80.0-100.0); PO2 FiO2 Ratio Arterial Blood 2.46 %; Reduced Hemoglobin 6.3 %THb (0-5.0); Site Drawn RIGHT RADIAL; Total Hemoglobin 12.1 g/dL (12.0-18.0); pH ABG 7.462 (7.350-7.450)
[2021-03-02 04:41] LABS: Arterial Blood Gas Minute Volume 7.6 LPM; Arterial Blood Gas PEEP 5 cmH2O; Arterial Blood Gas Tidal Volume 320 ml; Arterial Blood Gas Vent Mode CMV; Arterial Blood Gas Ventilator rate 20 /MIN
[2021-03-02 05:11] LABS: Basophils Percent Auto 0.1 % (0.2-1.2); Hematocrit 35.9 % (37.0-47.0); Hemoglobin 11.4 g/dL (12.0-15.0); Immature Granulocyte Absolute 0.06 K/mm3 (0.00-0.031); Immature Granulocyte Percent A 0.6 % (0-0.5); Lymphocytes Absolute Auto 0.79 K/mm3 (0.9-3.2); Lymphocytes Percent Auto 7.5 % (18.3-44.2); Mean Corpuscular HGB Conc 31.8 g/dl (32-36); Mean Corpuscular Hemoglobin 30.7 pg (26-34); Mean Corpuscular Volume 96.8 fl (80-100); Mean Platelet Volume 12.5 fl (7.4-10.4); Monocytes Percent Auto 9.4 % (2.6-8.5); Neutrophils Absolute Auto 8.7 K/mm3 (1.3-6.7); Neutrophils Percent Auto 82.4 % (45.5-73.1); Platelet Count Result 224 k/mm3 (150-375); Red Blood Count 3.71 M/mm3 (4.2-5.4); Red Cell Distribution Width 12.8 % (11.5-14.5); White Blood Count 10.6 K/mm3 (4.5-10.0)
[2021-03-02 05:31] LABS: Alanine Aminotransferase 20 U/L (4-35); Alkaline Phosphatase 69 U/L (38-126); Aspartate Amino Transferase 29 U/L (14-36); Bilirubin,Total 0.1 mg/dL (0.2-1.3); Blood Urea Nitrogen 34 mg/dL (7-17); Calcium 8.2 mg/dL (8.4-10.2); Carbon Dioxide > 40 mmol/L (22-30); Chloride 88 mmol/L (98-107); Estimated CRCL calculation 78 ml/min; Estimated Glomerular Filt Rate > 60; Glucose 193 mg/dL (65-110); Magnesium 2.5 mg/dL (1.6-2.3); Potassium 4.7 mmol/L (3.4-5.0); Sodium 133 mmol/L (137-145)
[2021-03-02] MEDS: methylPREDNISolone SOD SUCC 125 MG VIAL 60 MG IV PUSH ×2 (05:40→18:08)
[2021-03-02] MEDS: PROPOFOL IV EMULSION 100 ML 12.96 MG IV CONT (06:11)
[2021-03-02] MEDS: MINERAL OIL/WHITE PETROLATUM OINTMENT 1 APPLIC EACH EYE (08:18)
[2021-03-02] MEDS: INSULIN GLARGINE (*BKC) 100 UNITS/ML 15 UNITS SUB-Q (08:18)
[2021-03-02] MEDS: APIXABAN 5 MG TABLET FEED TUBE ×2 (08:18→20:37)
[2021-03-02] MEDS: PANTOPRAZOLE SODIUM IV 40 MG VIAL IV PUSH (08:20)
--- NOTE | 2021-03-02 09:29 | WPDINTPN ---
Progress Note: A&P Assessment and Plan (1) Acute respiratory failure with hypoxia and hypercapnia: Code(s): J96.01 - Acute respiratory failure with hypoxia; J96.02 - Acute respiratory failure with hypercapnia Status: Acute Assessment and Plan: acute on chronic respiratory failure secondary to severe COPD. Chest x-ray showed severe bullous emphysema with no significant infiltrates 02/28 and 03/01 failed breathing trial within few minutes due to increased tachypnea high RSBI and respiratory distress with use of accessory muscles. Patient indicated that she was struggling to breathe. Was placed back on assist control and sedation was increased Continue full mechanical ventilation support to prevent hypoxemia/hypercarbia and end organ damage. Patient again today placed on breathing trial with light sedation She is on Precedex infusion to rule out any anxiety component ABG reviewed and will repeat in am. chest x-ray reviewed -advance ET tube by 3 cm Low tidal volume ventilation strategy to prevent volutrauma continue steroids, Bronchodilators she was started on Rocephin azithromycin which will be continued (2) COPD exacerbation: Code(s): J44.1 - Chronic obstructive pulmonary disease with (acute) exacerbation Status: Acute Assessment and Plan: see above (3) UTI (urinary tract infection): Code(s): N39.0 - Urinary tract infection, site not specified Status: Acute Assessment and Plan: Urine culture poor positive for E coli which is sensitive to Rocephin she is on Rocephin (4) Suspected COVID-19 virus infection: Code(s): Z20.828 - Contact with and (suspected) exposure to other viral communicable diseases Status: Acute Assessment and Plan: PCR sent and negative she is off of isolation now (5) History of pulmonary embolus (PE): Code(s): Z86.711 - Personal history of pulmonary embolism Status: Acute Assessment and Plan: continue Eliquis (6) Hyponatremia: Code(s): E87.1 - Hypo-osmolality and hyponatremia Status: Acute Assessment and Plan: Improved (7) Hyperglycemia: Code(s): R73.9 - Hyperglycemia, unspecified Status: Acute Assessment and Plan: sliding scale insulin and add Lantus Additional Plan DVT prophylaxis - currently on Eliquis Stress ulcer prophylaxis - add PPI Nutrition - continue Tube Feeds Code Status - Full Code for now patient is unable to participate at this time Total Critical Care Time -32 minutes Due to a high probability of clinically significant, life threatening deterioration, the patient required my highest level of preparedness to intervene emergently and I personally spent this critical care time directly and personally managing the patient. This critical care time included obtaining a history; examining the patient; pulse oximetry; ordering and review of studies; arranging urgent treatment with development of a management plan; evaluation of patient's response to treatment; frequent reassessment; and discussions with other providers. It was exclusive of separately billable procedures and treating other patients and teaching time. Please see Assessment and Plan section and the rest of the note for further information on patient assessment and treatment Subjective Date/time seen: 03/02/21 09:29 Overnight events reviewed Afebrile Continues to be on mechanical ventilation Continues to be on sedation Vitals acceptable Review of Systems Review of Systems: ROS unobtainable: Yes unobtainable due to endotracheal tube, unobtainable due to medical condition and unobtainable due to mental status Exam Narrative: General: Pt is frail old cachectic female who is sedated, intubated and on mechanical ventilation Lungs/Chest: patient has a barrel chest, Trachea central decreased air movement throughout, No crackles or wheezing. Cardiac: RRR. Normal S1 S2. No murmurs Cir
[2021-03-02 09:59] LABS: Alveolar/Arterial O2 Gradient 70.7 mmHg; Base Excess ABG 13.2 mEq/l (+/-2.0); Device VENTILATOR; Fractional Inspired Oxygen 30 %; HCO3 ABG 39.5 mEq/l (22.0-26.0); Oxygen Content ABG 16.8 %vol (16.0-22.0); Oxygen Saturation ABG 95.2 % (95.0-100.0); Oxyhemoglobin 93.3 % THb (90.0-100.0); PCO2 ABG 58.2 mmHg (35.0-45.0); PO2 ABG 74.8 mmHg (80.0-100.0); PO2 FiO2 Ratio Arterial Blood 2.49 %; Site Drawn LEFT BRACHIAL; Total Hemoglobin 12.8 g/dL (12.0-18.0)
[2021-03-02 10:00] LABS: Arterial Blood Gas PEEP 5 cmH2O; Arterial Blood Gas Pressure Support 8 cmH2O; Arterial Blood Gas Vent Mode SPONTANEOUS
[2021-03-02] MEDS: HYDROcodone/acetaminophen (*CRX) 5-325 MG TABLET 1 TAB PO (11:02)
--- NOTE | 2021-03-02 12:05 | PM.EVENT ---
Event Note Event Note Event Note: Patient was extubated after weaning trial. Her ABG RSBI and vitals are except. Since extubation patient has been agitated and uncooperative. Continuously demanding pain medications anxiety medications fluids drinks and shouting and yelling at the nurse. I have tried to explain to patient that we will have to be conservative with pain medication considering her respiratory status. Patient use profanity laden language stated that she does not care and she wants her pain and anxiety medication right now. Patient has severe COPD is at risk of re-intubation.
[2021-03-02] MEDS: INSULIN ASPART (*BKC) 100 UNITS/ML SUB-Q (12:10)
[2021-03-02 12:16] LABS: Glucose Point of Care 214 mg/dl (65-105)
[2021-03-02] MEDS: MORPHINE SULFATE (*CRX) 2 MG/ML INJ IV PUSH ×3 (12:20→19:56)
[2021-03-02] MEDS: ALPRAZolam (*CRX) 0.5 MG TABLET PO (13:04)
[2021-03-02] MEDS: LORazepam INJ (*CRX) 2 MG/ML VIAL 0.5 MG IV PUSH ×2 (17:07→21:02)
[2021-03-02 18:18] LABS: Glucose Point of Care 66 mg/dl (65-105)
[2021-03-02 19:03] LABS: Glucose Point of Care 85 mg/dl (65-105)
[2021-03-02] MEDS: METOPROLOL TARTRATE 25 MG TABLET PO (20:37)
[2021-03-02] MEDS: busPIRone HCL 10 MG TABLET PO (20:37)
[2021-03-02] MEDS: IPRATROPIUM BR 0.02% INH SOLN 0.5 MG/2.5 ML VIAL INHALATION (22:13)
[2021-03-03] VITALS (20 sets, daily range): BP systolic 121–161; BP diastolic 80–108; PULSE 81–105; RESP 12–20; TEMP 36.4–37.5; O2SAT 97–100
[2021-03-03 00:29] LABS: Glucose Point of Care 103 mg/dl (65-105)
[2021-03-03] MEDS: LORazepam INJ (*CRX) 2 MG/ML VIAL 0.5 MG IV PUSH ×5 (00:49→16:59)
[2021-03-03] MEDS: MORPHINE SULFATE (*CRX) 2 MG/ML INJ IV PUSH ×5 (00:54→17:00)
[2021-03-03] MEDS: ALBUTEROL SULFATE NEB 2.5 MG/0.5 ML INH INHALATION ×3 (05:24→16:20)
[2021-03-03 06:05] LABS: Alveolar/Arterial O2 Gradient 77.6 mmHg; Base Excess ABG 13.1 mEq/l (+/-2.0); Carboxyhemoglobin 0.3 % THb (0-2.0); Fractional Inspired Oxygen 32 %; HCO3 ABG 40.9 mEq/l (22.0-26.0); Methemoglobin ABG 0.2 %THb (0-1.5); Oxyhemoglobin 92.4 % THb (90.0-100.0); PO2 ABG 72.2 mmHg (80.0-100.0); PO2 FiO2 Ratio Arterial Blood 2.26 %; Reduced Hemoglobin 7.1 %THb (0-5.0); Total Hemoglobin 13.8 g/dL (12.0-18.0); pH ABG 7.404 (7.350-7.450)
[2021-03-03 06:08] LABS: Site Drawn RIGHT RADIAL
[2021-03-03 06:09] LABS: Device NASAL CANNULA; Modified Allen's Test Pass
[2021-03-03 06:29] LABS: Glucose Point of Care 155 mg/dl (65-105)
[2021-03-03] MEDS: methylPREDNISolone SOD SUCC 125 MG VIAL 60 MG IV PUSH ×2 (07:12→17:01)
[2021-03-03] MEDS: busPIRone HCL 10 MG TABLET PO ×2 (08:52→21:07)
[2021-03-03] MEDS: APIXABAN 5 MG TABLET FEED TUBE ×2 (08:52→21:07)
[2021-03-03] MEDS: METOPROLOL TARTRATE 25 MG TABLET PO ×2 (08:52→21:07)
[2021-03-03] MEDS: PANTOPRAZOLE SODIUM IV 40 MG VIAL IV PUSH (08:53)
[2021-03-03 09:43] LABS: Magnesium 2.6 mg/dL (1.6-2.3)
--- NOTE | 2021-03-03 10:18 | PC.NURSE ---
0800- Patient repeatedly hitting call light and yelling out for someone to look at her mouth because it is swollen. I personally examined the patients mouth on multiple occasions and there is no evidence of swelling. Patient appears in no respiratory distress and is maintaining an O2 sat of 97% and higher on her home oxygen settings. I have repeatedly informed the patient that her mouth is not swollen, she is eating and drinking without difficulty and can yell in a clear voice that is heard down the vogel.
--- NOTE | 2021-03-03 12:00 | PCFNICU ---
ICU Rounding Note: Pt current nutrition is Clear liquids, plans for advancing diet as tolerated per MD orders. Last recorded weight is 51kg, up from 48 kg. Bowel Motility: NO BM reported. Labs Reviewed:Mg 2.6 Meds Noted:Albuterol, Zithromax,Lopressor, Solu Medrol, Protonix, Buspar, Ativan. Skin: WNL Additional Notes: Patient was extubated on 03/02, on 3LO2. Tolerating clear liquid diet with plans to advance as tolerated. Following daily in ICU rounds. Assessing/reassessing every 3 days.
--- NOTE | 2021-03-03 14:25 | WPDINTPN ---
Progress Note: A&P Assessment and Plan (1) Acute respiratory failure with hypoxia and hypercapnia: Code(s): J96.01 - Acute respiratory failure with hypoxia; J96.02 - Acute respiratory failure with hypercapnia Status: Acute Assessment and Plan: acute on chronic respiratory failure secondary to severe COPD. Chest x-ray showed severe bullous emphysema with no significant infiltrates 02/28 and 03/01 failed breathing trial within few minutes due to increased tachypnea high RSBI and respiratory distress with use of accessory muscles. Patient indicated that she was struggling to breathe. Was placed back on assist control and sedation was increased -successfully extubated on 03/02/2021 -currently on 3 L oxygen via nasal cannula which she uses at home. -continue steroids, bronchodilators and antibiotics (2) COPD exacerbation: Code(s): J44.1 - Chronic obstructive pulmonary disease with (acute) exacerbation Status: Acute Assessment and Plan: see above (3) UTI (urinary tract infection): Code(s): N39.0 - Urinary tract infection, site not specified Status: Acute Assessment and Plan: Urine culture positive for E coli which is pansensitive Continue ceftriaxone (4) Suspected COVID-19 virus infection: Code(s): Z20.828 - Contact with and (suspected) exposure to other viral communicable diseases Status: Acute Assessment and Plan: SARS-CoV-2 PCR is negative she is off of isolation now (5) History of pulmonary embolus (PE): Code(s): Z86.711 - Personal history of pulmonary embolism Status: Acute Assessment and Plan: continue Eliquis (6) Hyponatremia: Code(s): E87.1 - Hypo-osmolality and hyponatremia Status: Acute Assessment and Plan: Improved (7) Hyperglycemia: Code(s): R73.9 - Hyperglycemia, unspecified Status: Acute Assessment and Plan: Continue sliding scale insulin Additional Plan DVT prophylaxis - currently on Eliquis Stress ulcer prophylaxis -continue PPI Nutrition -will start p.o. diet Code Status - Full Code Total Critical Care Time -32 minutes Due to a high probability of clinically significant, life threatening deterioration, the patient required my highest level of preparedness to intervene emergently and I personally spent this critical care time directly and personally managing the patient. This critical care time included obtaining a history; examining the patient; pulse oximetry; ordering and review of studies; arranging urgent treatment with development of a management plan; evaluation of patient's response to treatment; frequent reassessment; and discussions with other providers. It was exclusive of separately billable procedures and treating other patients and teaching time. Please see Assessment and Plan section and the rest of the note for further information on patient assessment and treatment Subjective Date/time seen: 03/03/21 14:25 Interval history: Reason for consult: Acute respiratory failure likely related to COPD exacerbation and hypercapnic respiratory failure, UT I, sepsis, suspect COVID-19 -extubated on 03/02/2021 03/03/2021: Patient seen and examined in the ICU, currently on 3 L with adequate O2 sats. Patient was extubated on 03/02/2021. Denies any shortness of breath or chest pain, states she is just tired and wants to sleep. Patient has been awake and agitated all through the night and hitting her call button and requesting for pain medications and anxiety medications. Urine output has been adequate, patient is afebrile. Urine culture growing E coli which is pansensitive Review of Systems Review of Systems: All systems reviewed & are unremarkable except as noted in HPI and below Exam Narrative: General: Pt is frail old cachectic female on 3 L nasal cannula, looks comfortable and in no distress Lungs/Chest: patient has a barrel chest, Trachea central, decreased
[2021-03-03] MEDS: HYDROcodone/acetaminophen (*CRX) 5-325 MG TABLET 1 TAB PO (23:27)
[2021-03-04] VITALS (17 sets, daily range): BP systolic 115–138; BP diastolic 75–92; PULSE 80–110; RESP 18–24; TEMP 36.2–36.7; O2SAT 96–100
[2021-03-04] MEDS: ALBUTEROL SULFATE NEB 2.5 MG/0.5 ML INH INHALATION ×5 (00:17→21:53)
[2021-03-04] MEDS: LORazepam INJ (*CRX) 2 MG/ML VIAL 0.5 MG IV PUSH ×4 (04:59→21:39)
[2021-03-04] MEDS: HYDROcodone/acetaminophen (*CRX) 5-325 MG TABLET 1 TAB PO ×3 (05:39→17:00)
[2021-03-04] MEDS: methylPREDNISolone SOD SUCC 125 MG VIAL 60 MG IV PUSH (05:45)
[2021-03-04 06:52] LABS: Basophils Percent Auto 0.1 % (0.2-1.2); Eosinophils Absolute Auto 0.1 K/mm3 (0-0.3); Eosinophils Percent Auto 1.1 % (0-4.4); Hematocrit 41.8 % (37.0-47.0); Hemoglobin 13.1 g/dL (12.0-15.0); Immature Granulocyte Absolute 0.03 K/mm3 (0.00-0.031); Immature Granulocyte Percent A 0.3 % (0-0.5); Lymphocytes Percent Auto 24.9 % (18.3-44.2); Mean Corpuscular HGB Conc 31.3 g/dl (32-36); Mean Corpuscular Hemoglobin 31.3 pg (26-34); Mean Corpuscular Volume 99.8 fl (80-100); Mean Platelet Volume 11.6 fl (7.4-10.4); Monocytes Absolute Auto 1.5 K/mm3 (0.1-0.6); Monocytes Percent Auto 13.4 % (2.6-8.5); Neutrophils Absolute Auto 6.8 K/mm3 (1.3-6.7); Neutrophils Percent Auto 60.2 % (45.5-73.1); Platelet Count Result 258 k/mm3 (150-375); Red Blood Count 4.19 M/mm3 (4.2-5.4); Red Cell Distribution Width 12.7 % (11.5-14.5); White Blood Count 11.3 K/mm3 (4.5-10.0)
[2021-03-04 07:03] LABS: Blood Urea Nitrogen 19 mg/dL (7-17); Calcium 8.5 mg/dL (8.4-10.2); Carbon Dioxide > 40 mmol/L (22-30); Chloride 90 mmol/L (98-107); Estimated CRCL calculation 88 ml/min; Estimated Glomerular Filt Rate > 60; Glucose 155 mg/dL (65-110); Magnesium 2.3 mg/dL (1.6-2.3); Phosphorus 3.6 mg/dL (2.5-4.5); Potassium 3.9 mmol/L (3.4-5.0); Sodium 133 mmol/L (137-145)
[2021-03-04] MEDS: METOPROLOL TARTRATE 25 MG TABLET PO ×2 (08:48→21:32)
[2021-03-04] MEDS: APIXABAN 5 MG TABLET FEED TUBE ×2 (08:48→21:32)
[2021-03-04] MEDS: busPIRone HCL 10 MG TABLET PO ×2 (08:48→21:32)
[2021-03-04] MEDS: PANTOPRAZOLE SODIUM IV 40 MG VIAL IV PUSH (08:48)
[2021-03-04] MEDS: MORPHINE SULFATE (*CRX) 2 MG/ML INJ IV PUSH (09:46)
--- NOTE | 2021-03-04 13:43 | PM.IMPN ---
Progress Note: A&P Assessment and Plan (1) Acute respiratory failure with hypoxia and hypercapnia: Code(s): J96.01 - Acute respiratory failure with hypoxia; J96.02 - Acute respiratory failure with hypercapnia Status: Acute Assessment and Plan: Acute on chronic respiratory failure secondary to severe COPD. Chest x-ray on admission showed severe bullous emphysema with no significant infiltrates. She does have a known lung mass with recent PET scan showing mass decreased in size. Patient intubated on admission ut able to be extubated 03/02. She has been weaned down to 3L which is her baseline. Will start PT and OT. Change steroids to prednisone. Increased activity level. Remove Boss catheter. Continue antibiotics. (2) COPD exacerbation: Code(s): J44.1 - Chronic obstructive pulmonary disease with (acute) exacerbation Status: Acute Assessment and Plan: see above (3) UTI (urinary tract infection): Code(s): N39.0 - Urinary tract infection, site not specified Status: Acute Assessment and Plan: Urine culture positive for E coli which is pansensitive. Continue ceftriaxone. (4) Suspected COVID-19 virus infection: Code(s): Z20.828 - Contact with and (suspected) exposure to other viral communicable diseases Status: Acute Assessment and Plan: SARS-CoV-2 PCR is negative. (5) History of pulmonary embolus (PE): Code(s): Z86.711 - Personal history of pulmonary embolism Status: Acute Assessment and Plan: Stable. Continue Eliquis. Hgb remaining stable (6) Hyponatremia: Code(s): E87.1 - Hypo-osmolality and hyponatremia Status: Acute Assessment and Plan: Na 132 in admission. has a hx of mildly low sodium levels. Na dropped to 127 bur improved to 133 today. Follow (7) Hyperglycemia: Code(s): R73.9 - Hyperglycemia, unspecified Status: Acute Assessment and Plan: Glucose elevated here felt related to the stress response and the steroids. Continue sliding scale insulin. Check A1c. Subjective Date/time seen: 03/04/21 13:43 Interval history: 55yo female with chronic respiratory failure from COPD here for acute respiratory failure likely related to COPD exacerbation. She required intubation on admission and extubated on 03/02/2021. Assuming care. Chart reviewed. She slept poorly last night. She is anxious about her living situation but [place] not want to elaborate. She is eating poorly. +BMs. SOB better and back down to her 3L/min which she uses chronically. Exam Narrative: AF 98.1 138/86 96 20 99% 3L Gen - thin female in NARD lying semi-recumbent in bed Chest - distant but clear BS; no wheezing CV - RRR S1/S2 Abd - Soft, NT/ND, Positive BS Ext - No pedal edema. 2+ DP bilaterally. Left hand bruised and wrist in a splint Neuro - Alert, anxious. normal sensation to the left hand Psych - Nml mood and affect Skin - Warm and dry Objective Data Vital Signs Vital Signs: Vital Signs - 24 hr 03/03/21 15:14 03/03/21 16:20 03/03/21 16:27 Temperature 98.6 F Pulse Rate 100 99 99 Respiratory Rate 18 20 12 Blood Pressure 152/100 H Pulse Oximetry 97 03/03/21 20:00 03/03/21 21:07 03/03/21 22:00 Temperature 97.6 F Pulse Rate 94 98 Respiratory Rate 18 Blood Pressure 122/80 Pulse Oximetry 98 100 03/03/21 22:12 03/04/21 00:18 03/04/21 00:26 Temperature Pulse Rate 95 96 Respiratory Rate 20 18 Blood Pressure Pulse Oximetry 98 03/04/21 04:02 03/04/21 04:10 03/04/21 06:00 Temperature 98.1 F Pulse Rate 92 94 101 H Respiratory Rate 18 18 20 Blood Pressure 138/86 Pulse Oximetry 98 03/04/21 08:09 03/04/21 08:10 03/04/21 08:18 Temperature Pulse Rate 104 H 100 Respiratory Rate 20 20 Blood Pressure Pulse Oximetry 99 03/04/21 08:48 03/04/21 12:58 03/04/21 13:09 Temperature Pulse Rate 80 96 96 Respiratory Rate 20 20 Blood P
[2021-03-04] MEDS: GABAPENTIN 300 MG CAPSULE PO ×2 (15:57→21:32)
[2021-03-04] MEDS: FLUTICASONE/SALMETEROL 115-21 MCG INHALER 1 PUFF 2 PUFF INHALATION (21:54)
[2021-03-05] VITALS (13 sets, daily range): BP systolic 117–137; BP diastolic 73–90; PULSE 87–100; RESP 16–24; TEMP 36.1–36.3; O2SAT 94–100
[2021-03-05] MEDS: ALBUTEROL SULFATE NEB 2.5 MG/0.5 ML INH INHALATION ×4 (01:53→21:05)
[2021-03-05] MEDS: HYDROcodone/acetaminophen (*CRX) 5-325 MG TABLET 1 TAB PO ×5 (02:20→18:16)
[2021-03-05] MEDS: LORazepam INJ (*CRX) 2 MG/ML VIAL 0.5 MG IV PUSH ×3 (03:48→14:16)
[2021-03-05] MEDS: GABAPENTIN 300 MG CAPSULE PO ×3 (05:20→21:19)
[2021-03-05 06:51] LABS: Anion Gap 5 mmol/L (8-16); Blood Urea Nitrogen 17 mg/dL (7-17); Calcium 7.8 mg/dL (8.4-10.2); Carbon Dioxide 36 mmol/L (22-30); Chloride 92 mmol/L (98-107); Estimated CRCL calculation 88 ml/min; Estimated Glomerular Filt Rate > 60; Glucose 280 mg/dL (65-110); Potassium 4.1 mmol/L (3.4-5.0); Sodium 133 mmol/L (137-145)
[2021-03-05] MEDS: FLUTICASONE/SALMETEROL 115-21 MCG INHALER 1 PUFF 2 PUFF INHALATION ×2 (07:40→21:04)
[2021-03-05 08:21] LABS: Hemoglobin A1C 6.1 % (<5.7)
[2021-03-05] MEDS: busPIRone HCL 10 MG TABLET PO ×2 (10:22→21:19)
[2021-03-05] MEDS: APIXABAN 5 MG TABLET FEED TUBE ×2 (10:22→21:19)
[2021-03-05] MEDS: predniSONE 20 MG TABLET PO (10:22)
[2021-03-05] MEDS: PANTOPRAZOLE 40 MG TABLET PO (10:22)
[2021-03-05] MEDS: METOPROLOL TARTRATE 25 MG TABLET PO ×2 (10:22→21:19)
--- NOTE | 2021-03-05 12:10 | PCNFU ---
Nutrition Follow-Up Complete: Inadequate oral intake related to oral intubation as evidenced by NPO. Goal: Patient to meet estimated nutritional needs. Patient is progressing towards goal. We will continue current goal. Pt current nutrition is Regular. Last recorded weight is 52.2 kg, up from 48.5 kg on admit. Bowel Motility:+BM reported 03/04 Labs Reviewed:Cr 0.5,Glu 280,Na 133 Meds Noted:Rocephin, Buspar, Eliquis, Protonix, Lopressor, Ativan, Prednisone. Skin:WNL Additional Notes: Nutrition follow up. Patient eating 100% of Breakfast today on a regular diet. Agree with diet orders. Monitoring: Follow up every 5 days.
--- NOTE | 2021-03-05 13:07 | PCOTNOTE ---
Attempted to see patient this date for occupational therapy. Patient kindly declined OT services this date stating, I did so much earlier, I just don't feel up to moving.
--- NOTE | 2021-03-05 15:37 | PM.IMPN ---
Progress Note: A&P Assessment and Plan (1) Acute respiratory failure with hypoxia and hypercapnia: Code(s): J96.01 - Acute respiratory failure with hypoxia; J96.02 - Acute respiratory failure with hypercapnia Status: Acute Assessment and Plan: Acute on chronic respiratory failure secondary to severe COPD. Chest x-ray on admission showed severe bullous emphysema with no significant infiltrates. She does have a known lung mass with recent PET scan showing mass decreased in size. Patient intubated on admission but able to be extubated 03/02. She has been weaned down to 3L which is her baseline. Continue PT and OT. Changed to prednisone today. Increased activity level. Stop antibiotics. Okay for discharge once placement or location found. (2) COPD exacerbation: Code(s): J44.1 - Chronic obstructive pulmonary disease with (acute) exacerbation Status: Acute Assessment and Plan: As above. PET scan 02/25/21 did show severe emphysema. Continue Advair. Resume Incruse ellipta. (3) Chronic respiratory failure: Code(s): J96.10 - Chronic respiratory failure, unspecified whether with hypoxia or hypercapnia Status: Acute Assessment and Plan: Patient on home O2 at 3L. She is back to baseline. Follow (4) Lung mass: Code(s): R91.8 - Other nonspecific abnormal finding of lung field Status: Chronic Assessment and Plan: Patient is known to have a lung mass in the GOPAL. She states she had a biopsy that was either normal or inconclusive last year. She is followed by Dr Stinson. She has not had any treatment for this. She had a PET scan 02/25/21 showing decrease in size and FDG activity and interval development of central cavitation within a now 4.1 x 2.2 cm cavitary mass in the left upper lobe which in the absence of any interval treatment would favor an infectious/inflammatory etiology over malignancy. Also with slight decrease in size of a now a 9 mm right upper lobe nodule which is without FDG uptake and also most likely infectious/inflammatory in etiology. MAC? Check sputum. (5) UTI (urinary tract infection): Code(s): N39.0 - Urinary tract infection, site not specified Status: Acute Assessment and Plan: Urine culture positive for E coli which is pansensitive. Completed a course of ceftriaxone. (6) History of pulmonary embolus (PE): Code(s): Z86.711 - Personal history of pulmonary embolism Status: Acute Assessment and Plan: Stable. Continue Eliquis. Hgb remaining stable (7) Hyponatremia: Code(s): E87.1 - Hypo-osmolality and hyponatremia Status: Acute Assessment and Plan: Na 132 in admission. Has a hx of mildly low sodium levels. Na dropped to 127 bur improved to 133 today. Follow (8) Hyperglycemia: Code(s): R73.9 - Hyperglycemia, unspecified Status: Acute Assessment and Plan: A1c 6.1. Glucose elevated here felt related to the stress response and the steroids. Weaning steroids. Continue sliding scale insulin. (9) Anxiety: Code(s): F41.9 - Anxiety disorder, unspecified Status: Chronic Assessment and Plan: Patient with severe anxiety back on her Buspar. Effexor on hold but will resume today. Change benzodiazepines to oral route. (10) Radial fracture: Code(s): S52.90XA - Unspecified fracture of unspecified forearm, initial encounter for closed fracture Status: Acute Assessment and Plan: Pateint had a fall last month and had xray (02/10) showing a comminuted intra-articular fracture of the distal left radius with dorsal angulation and likely mild dorsal displacement and dorsal sided fragment. She will need to reschedule with the orthopedic MD for surgical repair. (11) Suspected COVID-19 virus infection: Code(s): Z20.828 - Contact with and (suspected) exposure to other viral communicable diseases Status: Acute Assessmen
[2021-03-05] MEDS: VENLAFAXINE HCL XR 75 MG CAP.ER.24H 150 MG PO (17:49)
[2021-03-05] MEDS: ALPRAZolam (*CRX) 0.25 MG TABLET PO (18:15)
[2021-03-06] VITALS (13 sets, daily range): BP systolic 112; BP diastolic 73–79; PULSE 77–98; RESP 18–20; TEMP 36.2–36.3; O2SAT 98–99
[2021-03-06] MEDS: ALBUTEROL SULFATE NEB 2.5 MG/0.5 ML INH INHALATION ×3 (01:40→13:29)
[2021-03-06] MEDS: HYDROcodone/acetaminophen (*CRX) 5-325 MG TABLET 1 TAB PO ×4 (03:15→17:02)
[2021-03-06] MEDS: SODIUM CHLOR 3% 15 ML NEB (RESPIRATORY THERAPY) 6 ML INHALATION (05:05)
[2021-03-06] MEDS: GABAPENTIN 300 MG CAPSULE PO ×2 (05:42→13:09)
[2021-03-06] MEDS: ALPRAZolam (*CRX) 0.25 MG TABLET PO ×2 (05:42→13:09)
[2021-03-06] MEDS: FLUTICASONE/SALMETEROL 115-21 MCG INHALER 1 PUFF 2 PUFF INHALATION (08:00)
[2021-03-06] MEDS: UMECLIDINIUM BROMIDE 62.5 MCG ELLIPTA 1 PUFF INHALATION (08:00)
[2021-03-06] MEDS: predniSONE 20 MG TABLET PO (08:26)
[2021-03-06] MEDS: busPIRone HCL 10 MG TABLET PO (08:26)
[2021-03-06] MEDS: VENLAFAXINE HCL XR 75 MG CAP.ER.24H 150 MG PO (08:26)
[2021-03-06] MEDS: PANTOPRAZOLE 40 MG TABLET PO (08:26)
[2021-03-06] MEDS: APIXABAN 5 MG TABLET FEED TUBE (08:27)
[2021-03-06] MEDS: METOPROLOL TARTRATE 25 MG TABLET PO (08:27)
--- NOTE | 2021-03-06 10:37 | PCPTNOTE ---
Patient declined PT at this due to chest pain. Patient rates pain as 10 out of 10 on pain scale. Patient requests PT return later in the day. RN aware of patient's c/o pain and assessed patient. PT will continue to follow per plan of care.
--- NOTE | 2021-03-06 10:46 | ECG_ITS ---
Measurements Intervals [place] Rate: 84 P: 89 WI: 140 QRS: 63 QRSD: 87 T: 61 QT: 358 QTc: 424 Interpretive Statements SINUS RHYTHM NORMAL ECG Electronically Signed On 03-06-2021 19:33:44 GENERAL ACCOUNTING MANAGER by Dick Woodard D.O.
--- NOTE | 2021-03-06 10:51 | PC.NURSE ---
MD Prakash ordered stat ekg r/t 02/02 chest pain reported by pt this shift. Pt requesting morphine, states hx of lung mass L side. States sharp/ dull pain non-radiating
--- NOTE | 2021-03-06 14:20 | PM.DS ---
DS: Admitting Diagnosis Discharge Date 03/06/21 Admitting Diagnosis Shortness of breath DS: Discharge Diagnosis Discharge Diagnosis (1) Acute respiratory failure with hypoxia and hypercapnia: Code(s): J96.01 - Acute respiratory failure with hypoxia; J96.02 - Acute respiratory failure with hypercapnia Status: Acute Assessment and Plan: Acute on chronic respiratory failure secondary to severe COPD. Chest x-ray on admission showed severe bullous emphysema with no significant infiltrates. She does have a known lung mass with recent PET scan showing mass decreased in size. Patient intubated on admission but able to be extubated 03/02/21. She has been weaned down to 3L which is her baseline. She worked with PT and OT but remained very weak and felt SNF was needed. She did well and was able to be discharged to SNF on 03/06/21 (2) COPD exacerbation: Code(s): J44.1 - Chronic obstructive pulmonary disease with (acute) exacerbation Status: Acute Assessment and Plan: As above. PET scan 02/25/21 did show severe emphysema. She was treated with Solu-Medrol and nebulizer treatments. She did well and was able to be weaned to her baseline 3L. She was transtioned to oral Prednisone. She completed her abx. We continued her inhalers. (3) Chronic respiratory failure: Code(s): J96.10 - Chronic respiratory failure, unspecified whether with hypoxia or hypercapnia Status: Acute Assessment and Plan: Patient is on home O2 at 3L. She is back to baseline. (4) Lung mass: Code(s): R91.8 - Other nonspecific abnormal finding of lung field Status: Chronic Assessment and Plan: Patient is known to have a lung mass in the GOPAL. She states she had a biopsy that was either normal or inconclusive last year (no records available). She is followed by Dr Stinson. She has not had any treatment for this. She had a PET scan 02/25/21 showing decrease in size and FDG activity and interval development of central cavitation within a now 4.1 x 2.2 cm cavitary mass in the left upper lobe which in the absence of any interval treatment would favor an infectious/inflammatory etiology over malignancy. Also with slight decrease in size of a now a 9 mm right upper lobe nodule which is without FDG uptake and also most likely infectious/inflammatory in etiology. MAC? Sputum ordered and is pending. (5) UTI (urinary tract infection): Code(s): N39.0 - Urinary tract infection, site not specified Status: Acute Assessment and Plan: Urine culture was positive for E coli which was pansensitive. She completed a course of ceftriaxone. (6) History of pulmonary embolus (PE): Code(s): Z86.711 - Personal history of pulmonary embolism Status: Acute Assessment and Plan: Stable. We continued her Eliquis. Hgb remained stable (7) Hyponatremia: Code(s): E87.1 - Hypo-osmolality and hyponatremia Status: Acute Assessment and Plan: Na 132 in admission. She has a hx of mildly low sodium levels in the past. Sodium dropped to 127 bur improved to 133. (8) Hyperglycemia: Code(s): R73.9 - Hyperglycemia, unspecified Status: Acute Assessment and Plan: A1c 6.1. Glucose was elevated felt related to the stress response and the steroids. Glucose levels improved as we weaned the steroids. She was monitored with sliding scale insulin. (9) Anxiety: Code(s): F41.9 - Anxiety disorder, unspecified Status: Chronic Assessment and Plan: Patient with severe anxiety. We resumed her Buspar and Effexor. Oral benzodiazepine available. (10) Radial fracture: Code(s): S52.90XA - Unspecified fracture of unspecified forearm, initial encounter for closed fracture Status: Acute Assessment and Plan: Pateint had a fall last month and had xray (02/10) showing a comminuted intra-articular fracture of the distal left radius wit
--- NOTE | 2021-03-06 18:00 | PC.NURSE ---
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 Medication and belonging packed up for pt.
== END 2021-03-06 18:35 | disposition home or self-care (01) | DRG 133 ==
LOC: ANHED 02-27 02:05 → ANHICU 02-27 12:23 → ANH3MEDSUR 03-05 20:28 → ANHICU 03-10 12:40
PROVIDERS: Internal Medicine; Admitting Provider Internal Medicine; Emergency Provider Emergency Medicine; PCP Family Medicine; Visit Provider Internal Medicine
DX: J96.21 Acute and chronic respiratory failure with hypoxia (principal); J43.9 Emphysema, unspecified; J96.22 Acute and chronic respiratory failure with hypercapnia; Z20.822 Contact with and (suspected) exposure to COVID-19; R91.8 Other nonspecific abnormal finding of lung field; N39.0 Urinary tract infection, site not specified; B96.20 Unspecified Escherichia coli [E. coli] as the cause of diseases classified elsewhere; E87.1 Hypo-osmolality and hyponatremia; R73.9 Hyperglycemia, unspecified; D64.9 Anemia, unspecified; M19.90 Unspecified osteoarthritis, unspecified site; K21.9 Gastro-esophageal reflux disease without esophagitis; S52.202A Unspecified fracture of shaft of left ulna, initial encounter for closed fracture; S52.92XA Unspecified fracture of left forearm, initial encounter for closed fracture; W19.XXXA Unspecified fall, initial encounter; G47.30 Sleep apnea, unspecified; I27.20 Pulmonary hypertension, unspecified; R64 Cachexia; Z68.1 Body mass index [BMI] 19.9 or less, adult; F17.210 Nicotine dependence, cigarettes, uncomplicated; F41.9 Anxiety disorder, unspecified; F32.A Depression, unspecified; Z99.81 Dependence on supplemental oxygen; Z86.711 Personal history of pulmonary embolism; Z79.01 Long term (current) use of anticoagulants
CPT/HCPCS: 31500; 36415; 36600; 51702; 71045; 80048; 80053; 81001; 82375; 82805; 82948; 83036; 83050; 83605; 83735; 83880; 84100; 84484; 85025; 85610; 85730; 87040; 87077; 87086; 87088; 87186; 93005; 94002; 94003; 94640; 96365; 97110; 97116; 97161; 97165; 97530; 99285; A9270; C9113; C9803; J0330; J0456; J0696; J1815; J1940; J2060; J2250; J2270; J2704; J2930; J3010; J3475; J7030; J7512; U0003; U0005

== ENCOUNTER 2021-04-07 02:18 | Emergency (ER) | payer OTHER, SELFPAY ==
[2021-04-07] VITALS (17 sets, daily range): BP systolic 113–133; BP diastolic 68–93; PULSE 82–96; RESP 9–32; TEMP 36.5; O2SAT 94–100
--- NOTE | ~2021-04-07 | CT_ITS ---
EXAMINATION: CT chest abdomen pelvis w con DATE: 04/07/2021 04:04 INDICATION: Chest and abdominal pain. Fall. TECHNIQUE: Computed tomography (CT) of the chest, abdomen, and pelvis was performed with 100 mL Omnip aque 350 intravenous contrast. Automated exposure control and iterative reconstruction technique were employed. The dose-length product was 282.87 mGy-cm. COMPARISON: CT abdomen and pelvis 12/04/2020, chest CT 09/24/2020 FINDINGS: CHEST CT: There is severe emphysema. There is mild atelectasis bilaterally. There is an irregular 1.8 cm cavita ry nodule in left lung upper lobe with improvement from 5.4 x 2.1 cm on the prior chest CT. There are a few smaller chronic nodules in the lungs, likely benign. No pleural effusion. There are nodules in the thyroid measuring up to 18 mm on the left. There is ectasia of ascending aorta measuring 4.1 cm. The heart size is normal. No pericardial effusion. There is no pulmonary embolus. There is mild thor acic spondylosis. There is a benign bone island in T11 vertebral body. ABDOMEN/PELVIS CT: There is a 7 mm cyst in the liver. The spleen, gallbladder, pancreas, and adrenal glands are normal. There is cortical thinning of the kidneys. There are cysts in the kidneys during up to 12 mm on the r ight. There is a moderate volume of stool in the colon. There are areas of colonic distention, likely adynamic ileus. There are no pathologically enlarged lymph nodes. There is no free intraperitoneal f luid. Partially visualized is a subcutaneous hematoma lateral to the proximal right femur. There is m ild lumbar spondylosis. IMPRESSION: 1. Partially visualized subcutaneous hematoma lateral to the proximal right femur. 2. Left lung upper lobe nodule with interval improvement, likely infection. 3. Severe emphysema. 4. Mildly distended colon, likely adynamic ileus. Reviewed, dictated and finalized at location A. LAB RADIOLOGY TECHNICIAN IMPRESSION: 1. Partially visualized subcutaneous hematoma lateral to the proximal right fem ur. 2. Left lung upper lobe nodule with interval improvement, likely infection. 3. Severe emphysema. 4. Mildly distended colon, likely adynamic ileus.
--- NOTE | ~2021-04-07 | XR_ITS ---
EXAMINATION: XR hip RT min 2V DATE: 04/07/2021 04:11 INDICATION: Fall and large painful bruising to the right hip TECHNIQUE: Anteroposterior and frog-leg lateral views of the left hip were obtained. COMPARISON: None. FINDINGS: Bone alignment is normal. No fracture. Right hip joint space is relatively preserved. Mild osteoarthr itis at the right sacroiliac joint. There is soft tissue swelling with region of increased density in the subcutaneous fat overlying the right greater trochanter suggesting a subcutaneous hematoma. IMPRESSION: 1. No acute osseous abnormality. Reviewed, dictated and finalized at location A. ING FLOOR OPERATOR
--- NOTE | ~2021-04-07 | CT_ITS ---
EXAMINATION: CTA brain carotid EXAM DATE: 04/07/2021 04:05 INDICATION: Left-sided numbness, neck pain. Ground-level fall, on blood thinners. TECHNIQUE: Noncontrast head CT. Spiral CTA of the carotid arteries was performed with intravenous i njection 100 cc of Omnipaque 350. Axial, coronal, sagittal reformatted images reviewed. Additional r eformatted images created on dedicated 3-D workstation. NASCET comparable standard used to assess th e degree of arterial stenosis. Spiral CT angiogram cerebral arteries performed with the same intrave nous injection of contrast. Source images of the brain CTA transferred to dedicated workstation for 3 -D rotational image creation. Coronal, sagittal maximum intensity pixel images also reviewed. The d ose-length product (DLP) for this examination was 1526.11 mGy-cm. The exposure was tailored accordi ng to patient size, and iterative reconstruction (ASIR) was used as additional dose reduction techniq ue. Comparison is made to prior examination from 03/06/[address] FINDINGS: The vertebral arteries are codominant. There is mild right carotid bulb arteriosclerosis, 0 % carotid stenosis bilaterally. Some tortuosity of the right internal carotid artery. 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 There is no carotid or vertebral basilar arterial disse ction or fibromuscular dysplasia. There are no cerebral artery aneurysms. There is symmetric cerebral artery arborization. The sagittal, transverse and sigmoid sinuses enhance normally, no venous sinus thrombosis. Internal cerebral veins also enhance normally. There is no acute intraparenchymal hemorrhage. No evidence of intraparenchymal brain mass lesion. N o evidence of acute infarction. There is mild microangiopathy. There is no mass effect or midline sh ift. There is no obstructive hydrocephalus suspected. There are no extra-axial collections. Incidental Findings: Incidental thyroid nodules, on the left measuring up to 1.5 cm. Right upper lobe cavitation with some regions of thick appearing wall. Probably scarring, incompletely imaged; correl ate with recent PET/CT. Severe emphysema. Cervical spondylosis. IMPRESSION: 1. No acute carotid or intracranial findings. 2. Bilateral carotid bulb 0% stenosis. 3. Mild microangiopathy. 4. Thyroid nodules; consider follow-up nonemergent ultrasound for risk stratification. 5. Left upper lobe cavitary lesion; correlate with recent PET CT results. Reviewed, dictated and finalized at location B. OND SETTER IMPRESSION: 1. No acute carotid or intracranial findings. 2. Bilateral carotid bulb 0% stenosis. 3. Mild microangiopathy. 4. Thyroid nodules; consider follow-up nonemergent ultrasound for risk stratif ication. 5. Left upper lobe cavitary lesion; correlate with recent PET CT results.
--- NOTE | ~2021-04-07 | CT_ITS ---
EXAMINATION: CT cervical spine wo con DATE: 04/07/2021 04:03 INDICATION: Neck pain. Fall. TECHNIQUE: Computed tomography (CT) of the cervical spine was performed without intravenous contrast. Automated exposure control and iterative reconstruction technique were employed. The dose-length pro duct was 84.96 mGy-cm. COMPARISON: None FINDINGS: The lung apices demonstrate emphysema. There is kyphosis of cervical spine. There is 6 degr ees levocurvature of cervical spine. There is mild chronic anterior wedging of T1 and T2 vertebral josefa dies. There is mildly decreased disc height at C4-C5 and moderately decreased disc height at C5-C6 an d C6-C7. The following disc levels are specifically discussed: C2-C3: There is mild bilateral uncovertebral joint osteoarthritis. There is severe bilateral facet madyson int osteoarthritis. There is mild left neural foraminal stenosis. There is no central canal stenosis. C3-C4: There is moderate right and mild left uncovertebral joint osteoarthritis. There is severe bila teral facet joint osteoarthritis. There is mild bilateral neural foraminal stenosis. There is mild ce ntral canal stenosis. C4-C5: There is mild bilateral uncovertebral joint osteoarthritis. There is severe bilateral facet madyson int osteoarthritis. There is mild bilateral neural foraminal stenosis. There is no central canal sten osis. C5-C6: There is moderate bilateral uncovertebral joint osteoarthritis. There is severe bilateral face t joint osteoarthritis. There is mild neural foraminal stenosis. There is mild central canal stenosis . C6-C7: There is mild bilateral uncovertebral joint osteoarthritis. There is mild bilateral facet join t osteoarthritis. There is no neural foraminal stenosis. There is mild central canal stenosis. C7-T1: There is mild bilateral uncovertebral joint osteoarthritis. There is moderate bilateral facet joint osteoarthritis. There is mild left neural foraminal stenosis. There is no central canal stenosi s. IMPRESSION: 1. No fracture. 2. Moderate cervical spondylosis. Reviewed, dictated and finalized at location A. IAN TUTOR
--- NOTE | 2021-04-07 03:00 | PC.NURSE ---
pt brought by family member to ED c/o losing balance last night while bending over and falling, hitting right hip and head. Pt arrives with velcro wrist splint in place to left wrist, which is from left wrist fracture last january per pt. pt has bruising to both arms, which pt reports is from past IV attempts. able to bear weight on right hip but pt reports it is painful. currently dressed - unable to see extent of injury. on 2L O2 per [place], which is what she wears at home. pt currently a/o x 4. appears iin no acute distress.
[2021-04-07 03:18] LABS: Basophils Percent Auto 0.2 % (0.2-1.2); Eosinophils Percent Auto 0.2 % (0-4.4); Hematocrit 31.5 % (37.0-47.0); Hemoglobin 10.2 g/dL (12.0-15.0); Immature Granulocyte Absolute 0.04 K/mm3 (0.00-0.031); Immature Granulocyte Percent A 0.3 % (0-0.5); Lymphocytes Absolute Auto 2.56 K/mm3 (0.9-3.2); Lymphocytes Percent Auto 21.5 % (18.3-44.2); Mean Corpuscular HGB Conc 32.4 g/dl (32-36); Mean Corpuscular Hemoglobin 31.9 pg (26-34); Mean Corpuscular Volume 98.4 fl (80-100); Mean Platelet Volume 10.9 fl (7.4-10.4); Monocytes Absolute Auto 1.2 K/mm3 (0.1-0.6); Monocytes Percent Auto 10.3 % (2.6-8.5); Neutrophils Percent Auto 67.5 % (45.5-73.1); Platelet Count Result 242 k/mm3 (150-375); Red Cell Distribution Width 12.4 % (11.5-14.5); White Blood Count 11.9 K/mm3 (4.5-10.0)
[2021-04-07 03:24] LABS: Alanine Aminotransferase 21 U/L (4-35); Albumin Level 4.1 g/dL (3.5-5.1); Alkaline Phosphatase 63 U/L (38-126); Aspartate Amino Transferase 29 U/L (14-36); Bilirubin,Total 0.4 mg/dL (0.2-1.3); Blood Urea Nitrogen 21 mg/dL (7-17); Calcium 9.1 mg/dL (8.4-10.2); Carbon Dioxide > 40 mmol/L (22-30); Chloride 83 mmol/L (98-107); Estimated CRCL calculation 55 ml/min; Estimated Glomerular Filt Rate > 60; Glucose 123 mg/dL (65-110); Potassium 3.8 mmol/L (3.4-5.0); Sodium 129 mmol/L (137-145)
[2021-04-07 03:38] LABS: INR 1.1; Partial Thromboplastin Time 29.5 SECONDS (22.3-36.8); Prothrombin Time 13.8 Seconds (11.1-14.7)
--- NOTE | 2021-04-07 04:21 | ED.GENADULT ---
HPI - General Adult General Chief complaint: Fall Stated complaint: fell last night - right hip pain, rib pain, HI Time Seen by Provider: 04/07/21 02:47 History of Present Illness HPI narrative: Patient is a 56-year-old female presents the emergency department chief complaint of right hip pain abdominal pain and chest pain. The patient reports she is on blood thinners reports that she was on a table and fell striking the right hip area. Patient states stable to ambulate afterwards states she got significant bruising on her hip. Patient reports that on anticoagulants he did strike her head as well patient denies nausea or vomiting Related Data Home Medications Medication Instructions Recorded Confirmed Eliquis 5 mg PO BID 03/06/21 03/06/21 Incruse Ellipta 1 inh INHALATION DAILY 03/06/21 03/06/21 albuterol sulfate 1 - 2 puff INHALATION PRN 03/06/21 03/06/21 budesonide-formoterol [Symbicort] 2 puff INHALATION BID 03/06/21 03/06/21 buspirone 10 mg BID 03/06/21 03/06/21 gabapentin 300 mg TID 03/06/21 03/06/21 metoprolol tartrate 25 mg BID 03/06/21 03/06/21 omeprazole 20 mg PO DAILY 03/06/21 03/06/21 venlafaxine 150 mg PO DAILY 03/06/21 03/06/21 Allergies Allergy/AdvReac Type Severity Reaction Status Date / Time nitrofurantoin Allergy Unknown HIVES Verified 04/07/21 03:10 oxycodone AdvReac Unknown NAUSEA, Verified 04/07/21 03:10 HEART RACING Review of Systems Review of Systems: A 10 system review of systems was completed on the patient and is negative except for what is stated in the HPI. Nursing and ancillary documentation was reviewed. [facility] Past Medical History Medical History Anemia Anxiety Arm fracture, left Arthritis Back pain Bronchitis Chronic respiratory failure COPD (chronic obstructive pulmonary disease) Depression Emphysema of lung Foot fracture, right GERD (gastroesophageal reflux disease) History of pulmonary embolus (PE) Inguinal hernia Kidney stones On home O2 2 L at rest and 3 L with activity Pneumonia Pulmonary embolism Pulmonary hypertension Pulmonary nodules suspicious for bronchogenic carcinoma Sleep apnea Tobacco abuse UTI (urinary tract infection) Surgical History Surgical History Hx of arthroscopy of left knee Hx of elbow surgery lt elbow Hx of inguinal hernia repair Hx of tonsillectomy Hx of tubal ligation Family History Family History Father , at 46 of lung CA Lung cancer Mother Cerebrovascular accident Grandparent Diabetes mellitus Sibling Lung cancer Social History Social History Social History: the patient has 5 children. She is . And she lives with her sister at this time. Her sister is a durable power [place] attorney for healthcare the patient is a full code. Smoking packs per day: 0.25 Smoking cigarettes per day: 5.0 Years smoked: 45 Smoking pack-years: 11.25 Smoking status: Light tobacco smoker Second hand tobacco smoke exposure: Yes Alcohol intake: unknown Substance use: unknown Substance use type: does not use Additional living arrangements comments: stays with cousin Additional occupation/education comments: disable Gender identity (if verbalized by the patient): Female Spiritual care concerns: No Agree to blood products: Yes Exam Narrative: GENERAL: Well-appearing, well-nourished, and in no acute distress. HEAD: Normocephalic, atraumatic. EYES: PERRLA and EOMI. ENT: Nares clear, no rhinorrhea or epistaxis. Mucous membranes moist. NECK: Supple. CHEST: Clear to auscultation. No respiratory distress. HEART: Regular rate and rhythm. No murmur heard. Normal peripheral pulses. ABDOMEN: Soft, nontender, non
[2021-04-07] MEDS: HYDROcodone/acetaminophen (*CRX) 5-325 MG TABLET 2 TAB PO (06:18)
== END 2021-04-07 06:52 | disposition home or self-care (01) ==
PROVIDERS: Emergency Provider Emergency Medicine; PCP Family Medicine
DX: S70.01XA Contusion of right hip, initial encounter (principal); J96.10 Chronic respiratory failure, unspecified whether with hypoxia or hypercapnia; J43.9 Emphysema, unspecified; D64.9 Anemia, unspecified; I27.20 Pulmonary hypertension, unspecified; K21.9 Gastro-esophageal reflux disease without esophagitis; M19.90 Unspecified osteoarthritis, unspecified site; G47.30 Sleep apnea, unspecified; Z99.81 Dependence on supplemental oxygen; Z79.01 Long term (current) use of anticoagulants; Z86.711 Personal history of pulmonary embolism; Z87.442 Personal history of urinary calculi; Z87.01 Personal history of pneumonia (recurrent); Z87.440 Personal history of urinary (tract) infections; F17.210 Nicotine dependence, cigarettes, uncomplicated; W08.XXXA Fall from other furniture, initial encounter
CPT/HCPCS: 36415; 70496; 70498; 71260; 72125; 73502; 74177; 80053; 85025; 85610; 85730; 99284; A9270; Q9967

== ENCOUNTER 2021-06-03 10:49 | Outpatient (CLI) | payer OTHER, SELFPAY ==
--- NOTE | ~2021-06-03 | CT_ITS ---
EXAMINATION:CT diagnostic chest w con DATE: 06/03/2021 11:23 INDICATION: Lung nodule. TECHNIQUE: Computed tomography (CT) of the chest was performed with 75 mL Omnipaque 350 intravenous c ontrast. Automated exposure control and iterative reconstruction technique were employed. The dose-le ngth product (DLP) was 141.73 mGy-cm. COMPARISON: Chest CT 04/07/2021, 09/24/2020 FINDINGS: There is severe emphysema. There is a 5 mm nodule in right lower lobe, stable from 09/24/2020 . There is a 6 mm nodule in right upper lobe, stable from 09/24/2020. There is a 6 mm nodule in right u pper lobe, improved from 09/24/2020. There is a 1.6 cm nodule in left upper lobe, stable from and improved from 5.5 x 2.2 cm on 09/24/2020. There is a 4 mm nodule in left upper lobe, stable from 09/24/2020. There are a few scattered 2-3 mm nodules in the lungs. No pleural effusion. There is ectasi a of ascending aorta measuring 4.1 cm. The heart size is normal. No pericardial effusion. The central pulmonary arteries are enlarged, consistent with pulmonary arterial hypertension. There is mild thor acic spondylosis. There is a benign bone island in T11 vertebral body. IMPRESSION: 1. Stable pulmonary nodules, likely benign. 2. Severe emphysema. Reviewed, dictated and finalized at location A. R ACCOUNT MANAGER
[2021-06-03 11:17] LABS: Estimated Glomerular Filt Rate > 60
== END 2021-06-03 10:50 | disposition home or self-care (01) ==
PROVIDERS: PCP Family Medicine; Visit Provider Internal Medicine Hematology & Oncology
DX: R91.1 Solitary pulmonary nodule (principal)
CPT/HCPCS: 71260; Q9967

== ENCOUNTER 2021-06-25 16:19 | Inpatient (IN) | payer OTHER, SELFPAY ==
[2021-06-25] VITALS (29 sets, daily range): BP systolic 94–168; BP diastolic 79–105; PULSE 107–126; RESP 14–24; TEMP 36.8–38; O2SAT 84–100; BMI 17.0
--- NOTE | ~2021-06-25 | XR_ITS ---
EXAMINATION: XR chest 1V portable DATE: 06/30/2021 05:18 INDICATION: Chronic obstructive pulmonary disease. TECHNIQUE: A single frontal view of the chest was obtained. COMPARISON: Chest single view 06/29/2021 FINDINGS: The lungs demonstrate lucencies and interstitial opacities with architectural distortion, c onsistent with emphysema. There are airspace opacities in left upper lobe. No pleural effusion or pne umothorax. The heart size is normal. The endotracheal tube tip is 5.5 cm above the syed. A right up per extremity peripherally inserted central venous catheter (PICC) is seen with tip in the superior v gwyn cava. The nasogastric tube tip is in the stomach. IMPRESSION: 1. Stable chronic airspace opacities in left upper lobe, likely chronic infection. 2. Severe emphysema. Reviewed, dictated and finalized at location A. PERSON IMPRESSION: 1. Stable chronic airspace opacities in left upper lobe, likely chronic infecti on. 2. Severe emphysema.
--- NOTE | ~2021-06-25 | XR_ITS ---
EXAMINATION: XR chest 1V portable DATE: 07/03/2021 05:27 INDICATION: Respiratory failure. Chronic obstructive pulmonary disease exacerbation. TECHNIQUE: A single frontal view of the chest was obtained. COMPARISON: Chest single view 07/01/2021, chest CT 07/02/2021 FINDINGS: The lungs are hyperexpanded with lucencies and interstitial opacities, consistent with emph ysema. There are chronic airspace opacities in left upper lobe. No pleural effusion or pneumothorax. The heart size is normal. The endotracheal tube tip is 6.5 cm above the syed. The nasogastric tube tip is beyond the inferior margin of the radiograph, but at least to the stomach. A right upper extre mity peripherally inserted central venous catheter (PICC) is seen with tip at the superior cavoatrial junction. IMPRESSION: 1. Severe emphysema. 2. Chronic airspace opacities in left upper lobe, consistent with scarring. Reviewed, dictated and finalized at location A. CITY PLANNING ANALYST
--- NOTE | ~2021-06-25 | XR_ITS ---
XR chest PICC line 06/26/2021 15:01 Indication: PICC line placement Procedure: AP portable chest Comparison: Comparison to multiple prior studies sequentially, with oldest reviewed study dated 12/2020. Findings: Severe emphysema. There is patchy bilateral infiltrates of the left mid and bilateral lower lungs, consistent with pneumonia. There is scarring of the left upper lobe. PICC line tip in the SVC . Endotracheal tube tip 5.9 cm above the syed. Lung apices are excluded limiting evaluation for pne umothorax. Impression: 1: Patchy bilateral airspace disease, consistent with pneumonia. Reviewed, dictated and finalized at location A. IZATION SUPERVISOR Impression: 1: Patchy bilateral airspace disease, consistent with pneumonia.
--- NOTE | ~2021-06-25 | XR_ITS ---
EXAMINATION: XR chest 1V portable DATE: 06/29/2021 05:21 INDICATION: Respiratory failure. TECHNIQUE: A single frontal view of the chest was obtained. COMPARISON: Chest single view 06/28/2021 FINDINGS: There are lucencies and chronic interstitial opacities in the lungs with architectural dist ortion, consistent with emphysema. There are airspace opacities in left upper lobe. No pleural effusi on or pneumothorax. The heart size is normal. The endotracheal tube tip is 5.1 cm above the syed. T he nasogastric tube tip is beyond the inferior margin of the radiograph, but at least to the stomach. A right upper extremity peripherally inserted central venous catheter (PICC) is seen with tip in the superior vena cava. IMPRESSION: 1. Stable chronic airspace opacities in the left upper lobe, likely chronic infection. 2. Severe emphysema. Reviewed, dictated and finalized at location A. CH CONSULTANT IMPRESSION: 1. Stable chronic airspace opacities in the left upper lobe, likely chronic inf ection. 2. Severe emphysema.
--- NOTE | ~2021-06-25 | XR_ITS ---
XR chest 2V 06/25/2021 16:50 Indication: Shortness of breath. COPD. Pneumonia. Procedure: 2 view chest Comparison: Comparison to multiple prior studies sequentially, with oldest reviewed study dated 10/2020. Findings: There has been development of patchy bilateral airspace disease, consistent with pneumonia. There is severe emphysema. Heart size normal. No significant pleural effusion or pneumothorax. Impression: 1: Developing patchy bilateral airspace disease, consistent with pneumonia. 2: Severe emphysema. Reviewed, dictated and finalized at location A. ALT ROLLER PERSON Impression: 1: Developing patchy bilateral airspace disease, consistent with pneumonia. 2: Severe emphysema.
--- NOTE | ~2021-06-25 | CT_ITS ---
EXAMINATION: CT chest abdomen pelvis wo con DATE: 06/26/2021 21:52 PLANT HR MANAGER INDICATION: Abdominal distention. Respiratory failure. Emphysema. Asthma. TECHNIQUE: Computed tomography (CT) of the chest, abdomen, and pelvis was performed without intraveno us contrast. The dose-length product was 366.27 mGy-cm. Automated exposure control and iterative chun nstruction technique were employed. COMPARISON: CT dated 06/03/2021 FINDINGS: CHEST CT: There is an endotracheal tube present. NG tube in the stomach. No significant pleural or pericardial effusion. Heart size normal. No thoracic lymphadenopathy. There is atherosclerosis. Severe emphysema. There is extensive scarring with cavitary change in the left upper lobe. There is adjacent pleural t hickening. There is a central line, tip in the SVC. There is a 6 mm right upper lobe nodule, image 76 . There is a 3 mm left upper lobe nodule, image 70. There is a 6 mm left upper lobe nodule, image 98. No pneumothorax. There are a few additional scattered 2-3 mm nodules. There is enlargement of the pu lmonary arteries consistent with pulmonary hypertension. Mild thoracic spondylosis ABDOMEN/PELVIS CT: The liver, spleen, pancreas, adrenal glands and kidneys are unremarkable for noncontrast CT. Gallblad fouzia is distended. Cannot exclude retroperitoneal lymphadenopathy given the lack of contrast. Nonobstr uctive bowel gas pattern. Boss catheter present in the bladder. Moderate colonic fecal loading. No f ree air or free fluid. No acute bone or joint abnormality. Levoscoliosis of the thoracolumbar spine. IMPRESSION: 1. Multiple bilateral pulmonary nodules without significant change from prior examination allowing fo r differences of technique. No significant change to bilateral pulmonary nodules. 2: Severe emphysema. 3: Pulmonary arterial hypertension. 4: No acute abdominal abnormality. Reviewed, dictated and finalized at location A. T HR MANAGER IMPRESSION: 1. Multiple bilateral pulmonary nodules without significant change from prior e xamination allowing for differences of technique. No significant change to bila teral pulmonary nodules. 2: Severe emphysema. 3: Pulmonary arterial hypertension. 4: No acute abdominal abnormality.
--- NOTE | ~2021-06-25 | XR_ITS ---
XR chest 1V portable DATE: 06/26/2021 05:49 INDICATION: Respiratory failure. Congestive heart failure. Pneumonia. TECHNIQUE: Portable AP chest on 06/26/2021 at 0511 hours COMPARISON: 06/25/2021 portable AP chest at 0923 and 0924 hours 06/25/2021 2 view chest 06/03/2021 CTA chest 04/07/2021 CT chest 03/14/2021 portable AP chest FINDINGS: ET tube tip is approximately 6 cm above syed; ideal range is minimal T2-5 centimeters. NG tube in stomach, proximal side-port situated near the diaphragmatic hiatus. No central lines. Severe emphysematous changes are noted. Prominent scarring is again noted in the left upper lobe, pre sent dating back to 03/14/2021. Normal heart size. No pulmonary vascular congestion or pleural effusion or pneumothorax. Diffuse osteopenia. IMPRESSION: Severe emphysema and chronic left upper lobe scarring ET tube approximately 6 cm above syed NG tube proximal side port situated at diaphragmatic hiatus; advancement is recommended Reviewed, dictated and finalized at location A. RS SUPERINTENDENT IMPRESSION: Severe emphysema and chronic left upper lobe scarring ET tube approximately 6 cm above syed NG tube proximal side port situated at diaphragmatic hiatus; advancement is rec ommended
--- NOTE | ~2021-06-25 | CT_ITS ---
EXAMINATION: CTA chest PE abdomen pel EXAM DATE: 07/02/2021 11:13 INDICATION: Respiratory failure, SBO, Ischemic Bowel TECHNIQUE: Spiral CTA of the chest (pulmonary arteries) was performed with 100 cc Omnipaque 350 intr avenous contrast injection. Images were acquired during the pulmonary arterial phase. Coronal maxi mum intensity projection 3D-reconstructions were created by the technologist on dedicated workstation . Axial, coronal and sagittal reformatted images were reviewed. Spiral CT of the abdomen and pelvis was then performed with the same intravenous contrast injection. Axial, coronal and sagittal reform atted images were reviewed. The dose-length product (DLP) for this examination was 705.04 mGy-cm. T he exposure was tailored according to patient size (auto mA exposure control), and iterative reconst ruction (ASIR) was used as additional dose reduction technique. Comparison is made to prior examinati on from 06/26/2021. FINDINGS: TUBES/LINES: Nasogastric tube tip is below the gastroesophageal junction, side-port is probably just above. Endotracheal tube is in position. Can't identify the right-sided PICC line due to contrast. Fo opal catheter in position. CHEST: Pulmonary arteries are well opacified and without intraluminal filling defects. No thoracic aortic dissection. There is severe emphysema. The lungs are hyperinflated which can be seen with ch ronic obstructive pulmonary disease (a clinical diagnosis of functional impairment), but is not diagn ostic of it. There our left upper lobe opacities consistent with scarring. No evidence of acute airs pace disease. Some collapse of the bronchi on expiration, chondromalacia. There are no pleural or pe ricardial effusions. There is no mediastinal, hilar or axillary lymphadenopathy. There is no pneu mothorax. Heart normal in size. There is mild coronary arterial calcification, arterial sclerosis . ABDOMEN PELVIS: Mesenteric arteries and veins have expected enhancement. No portal venous gas. Peripo rtal edema. Generalized mesenteric and body wall fat stranding. The liver, spleen, adrenal glands an d pancreas are unremarkable. Gallbladder is unremarkable. No biliary obstruction. Portal and splen ic veins are patent. Kidneys enhance symmetrically. There is no hydronephrosis. The prostate is u nremarkable. The bladder is collapsed with Boss catheter balloon anchor inside. There is no retrop eritoneal or pelvic lymphadenopathy. There is mild scattered arteriosclerotic disease. The stomach and small bowel are unremarkable. Large amount of ascending and transverse colonic stool and gas. The descending colon is collapsed. Gas within the sigmoid colon. Mildly prominent rectosigm oid colonic wall, possible colitis. Diarrhea. No free intraperitoneal gas. There are no osteoblas tic or osteolytic lesions identified. IMPRESSION: 1. No pulmonary emboli or acute cardiopulmonary findings. 2. Severe emphysema and hyperinflation. Left upper lobe scarring. 3. Tracheobronchial chondromalacia. 4. Generalized body wall, mesenteric fat stranding, edema. Periportal edema. 5. Large amount of ascending and transverse colonic stool and gas. 6. Possible rectosigmoid colonic colitis. Diarrhea. Reviewed, dictated and finalized at location A. CONTROL ENGINEER
--- NOTE | ~2021-06-25 | XR_ITS ---
EXAMINATION: XR abdomen obstructive series DATE: 07/01/2021 09:18 INDICATION: Abdominal tenderness and distention. TECHNIQUE: Upright and supine views of the abdomen on 3 radiographs were obtained. COMPARISON: CT abdomen and pelvis 06/26/2021 FINDINGS: There are dilated loops of small bowel. The colon is mildly distended. There is a moderate volume of stool in the colon. No free intraperitoneal gas. The nasogastric tube tip is in the stomach . IMPRESSION: 1. Dilated small and large bowel, likely adynamic ileus. Reviewed, dictated and finalized at location A. ATCHER AUTOMOBILE RENTAL
--- NOTE | ~2021-06-25 | XR_ITS ---
XR chest 1V portable DATE: 06/27/2021 06:01 INDICATION: Respiratory failure. TECHNIQUE: Portable AP chest on 06/2021 at 0511 hours COMPARISON: 06/26/2021 CTA chest 06/26/2021 portable AP chest at 1451 hours FINDINGS: ET tube tip approximately 5.6 cm above syed. NG tube in stomach. Right upper extremity PI C catheter tip overlies superior vena cava. There is bilateral hyperinflation and evidence of bullous emphysema. There is stable focal infiltrate and/or scarring in the left upper lung. Normal heart size. Pulmonary hypertension. No hilar or mediastinal mass lesion is noted. No pleural e ffusion, pulmonary vascular congestion or pneumothorax. IMPRESSION: No significant change since 06/26/2021 Reviewed, dictated and finalized at location A. ER PUNCHER
--- NOTE | ~2021-06-25 | XR_ITS ---
XR chest ET placement 06/25/2021 21:28 Indication: Respiratory distress Procedure: 2 view chest Comparison: Comparison to multiple prior studies sequentially, with oldest reviewed study dated 03/02/2021. Findings: Interval placement of endotracheal tube, tip 5 cm above the syed. NG tube passes into the stomach. Bibasilar airspace disease, consistent with pneumonia. There is scarring in the left midlun g. No pneumothorax. Impression: 1: Bibasilar airspace disease, compatible with pneumonia. Reviewed, dictated and finalized at location A. Y VENDOR Impression: 1: Bibasilar airspace disease, compatible with pneumonia.
--- NOTE | ~2021-06-25 | XR_ITS ---
EXAMINATION: XR chest 1V portable DATE: 06/28/2021 05:13 INDICATION: Respiratory failure. TECHNIQUE: A single frontal view of the chest was obtained. COMPARISON: Chest single view 06/27/2021, chest CT 06/26/2021 FINDINGS: The lungs demonstrate lucencies, interstitial opacities, and architectural distortion, cons istent with severe emphysema. There are airspace opacities in left upper lobe. No pleural effusion or pneumothorax. The heart size is normal. The endotracheal tube tip is 6.3 cm above the syed. The na sogastric tube tip is beyond the inferior margin of the radiograph, but at least to the stomach. A ri ght upper extremity peripherally inserted central venous catheter (PICC) is seen with tip in the supe rior vena cava. IMPRESSION: 1. Stable airspace opacities in left upper lobe, likely chronic infection. 2. Severe emphysema. Reviewed, dictated and finalized at location A. AWYER
--- NOTE | ~2021-06-25 | XR_ITS ---
EXAMINATION: XR abdomen NG/feed tube insert EXAM DATE: 07/04/2021 10:56 INDICATION: NG placement TECHNIQUE: Frontal projection(s) of the abdomen for interpretation. Comparison is made to prior exami nation from 07/03/2021. FINDINGS: There are 2 feeding tubes identified, one with tip below the gastroesophageal junction but side port above, and the other with both tip and side-port projecting over stomach likely below the g astroesophageal junction. There is endotracheal tube. Lungs appear hyperinflated, without confluent c onsolidation. Nonobstructive bowel gas pattern. IMPRESSION: 2 feeding tubes identified, as described above. Reviewed, dictated and finalized at location A. RESS TECHNICIAN
--- NOTE | ~2021-06-25 | XR_ITS ---
EXAMINATION: XR abdomen NG/feed tube rechec DATE: 06/26/2021 12:52 INDICATION: Nasogastric tube placement. TECHNIQUE: A semierect view of the abdomen was obtained. COMPARISON: CT chest, abdomen, and pelvis 04/07/2021 FINDINGS: The lower abdomen in left lateral aspect of the abdomen are excluded. The nasogastric tube tip is in the stomach. Emphysema is noted. Again seen are airspace opacities in left upper lobe, like ly infection/scarring. The endotracheal tube tip is 5.7 cm above the syed. IMPRESSION: 1. Nasogastric tube tip in the stomach. Reviewed, dictated and finalized at location A. TIC TUBING INSULATION SUPERVISOR
--- NOTE | ~2021-06-25 | XR_ITS ---
EXAMINATION: XR abdomen/kub 1V DATE: 07/03/2021 07:54 INDICATION: Adynamic ileus. TECHNIQUE: A supine view of the abdomen was obtained. COMPARISON: Abdomen radiographs 07/01/2021, CT abdomen and pelvis 07/02/2021 FINDINGS: There are no dilated loops of bowel. There is a moderate volume of stool in the colon. The nasogastric tube tip is in the stomach with proximal side port in the distal esophagus. IMPRESSION: 1. Normal bowel gas pattern. 2. Nasogastric tube tip in the stomach with proximal side port in the distal esophagus. Advancement 5 cm is recommended. Reviewed, dictated and finalized at location A. BLE REPRESENTATIVE IMPRESSION: 1. Normal bowel gas pattern. 2. Nasogastric tube tip in the stomach with proximal side port in the distal es ophagus. Advancement 5 cm is recommended.
--- NOTE | ~2021-06-25 | XR_ITS ---
XR abdomen NG/feed tube insert INDICATION: Evaluate NG tube position. TECHNIQUE: Limited KUB perform for evaluating NG tube . COMPARISON: 06/26/2021 FINDINGS: NG tube tip in the stomach. Visualized bowel gas pattern is unremarkable.There is emphysem a. There is scarring in the left upper lung. IMPRESSION: 1: NG tube tip in the stomach. Reviewed, dictated and finalized at location A. L SERVICES PROFESSIONAL
--- NOTE | ~2021-06-25 | XR_ITS ---
EXAMINATION: XR chest 1V portable DATE: 07/01/2021 05:41 INDICATION: Chronic obstructive pulmonary disease. TECHNIQUE: A single frontal view of the chest was obtained. COMPARISON: Chest single view 06/30/2021, chest CT 06/26/21 FINDINGS: There are lucencies and interstitial opacities in the lungs, consistent with emphysema. The re are airspace opacities in left upper lobe. No pleural effusion or pneumothorax. The heart size is normal. A right upper extremity peripherally inserted central venous catheter (PICC) is seen with tip in the superior vena cava. The nasogastric tube tip is beyond the inferior margin of the radiograph, but at least to the stomach. The endotracheal tube tip is 6.5 cm above the syed. IMPRESSION: 1. Stable chronic airspace opacities in left upper lobe, likely chronic infection. 2. Severe emphysema. Reviewed, dictated and finalized at location A. ICER MACHINE IMPRESSION: 1. Stable chronic airspace opacities in left upper lobe, likely chronic infecti on. 2. Severe emphysema.
--- NOTE | 2021-06-25 16:26 | ECG_ITS ---
Measurements Intervals Rebecca Rate: 109 P: 82 AR: 112 QRS: 67 QRSD: 94 T: 68 QT: 349 QTc: 470 Interpretive Statements SINUS TACHYCARDIA WITH SHORT AR INTERVAL POSSIBLE RIGHT ATRIAL ENLARGEMENT [0.25mV P WAVE] POSSIBLE INFERIOR/LATERAL MYOCARDIAL INFARCTION , PROBABLY OLD [30 ms Q WAVE IN II/aVF] ABNORMAL ECG Electronically Signed On 06-26-2021 9:41:56 DIRECTOR DISTRIBUTION by Cyrus Cali M.D.
[2021-06-25 16:39] LABS: Alveolar/Arterial O2 Gradient 90.1 mmHg; Base Excess ABG 10.2 mEq/l (+/-2.0); Carboxyhemoglobin 9.7 % THb (0-2.0); Fractional Inspired Oxygen 38 %; HCO3 ABG 39.7 mEq/l (22.0-26.0); Methemoglobin ABG 0.3 %THb (0-1.5); Oxygen Saturation ABG 94.8 % (95.0-100.0); PO2 FiO2 Ratio Arterial Blood 2.24 %; Reduced Hemoglobin 3.8 %THb (0-5.0); Total Hemoglobin 12.3 g/dL (12.0-18.0); pH ABG 7.298 (7.350-7.450)
[2021-06-25 16:40] LABS: Device NASAL CANNULA; Modified Allen's Test Pass; Oxyhemoglobin 86.2 % THb (90.0-100.0); Site Drawn RIGHT RADIAL
[2021-06-25] MEDS: LORazepam INJ (*CRX) 2 MG/ML VIAL 0.5 MG IV PUSH ×2 (17:04→17:55)
[2021-06-25 17:06] LABS: Basophils Absolute Auto 0.1 K/mm3 (0.0-0.1); Basophils Percent Auto 0.6 % (0.2-1.2); Eosinophils Percent Auto 0.1 % (0-4.4); Hematocrit 37.3 % (37.0-47.0); Hemoglobin 11.8 g/dL (12.0-15.0); Immature Granulocyte Absolute 0.02 K/mm3 (0.00-0.031); Immature Granulocyte Percent A 0.2 % (0-0.5); Lymphocytes Absolute Auto 0.84 K/mm3 (0.9-3.2); Lymphocytes Percent Auto 9.1 % (18.3-44.2); Mean Corpuscular HGB Conc 31.6 g/dl (32-36); Mean Corpuscular Hemoglobin 31.6 pg (26-34); Mean Platelet Volume 10.4 fl (7.4-10.4); Monocytes Absolute Auto 0.9 K/mm3 (0.1-0.6); Monocytes Percent Auto 9.7 % (2.6-8.5); Neutrophils Absolute Auto 7.4 K/mm3 (1.3-6.7); Neutrophils Percent Auto 80.3 % (45.5-73.1); Platelet Count Result 302 k/mm3 (150-375); Red Blood Count 3.73 M/mm3 (4.2-5.4); White Blood Count 9.2 K/mm3 (4.5-10.0)
--- NOTE | 2021-06-25 17:46 | PC.NURSE ---
PT CONTINUALLY CALLING OUT NECK SKEWER CONROY REQUESTING A FAN AND FOR HER BIPAP TO BE TAKEN OFF. SHE IS ALSO REQUESTING TO BE TRANSFERRED TO A [facility]. WAS MADE AWARE THIS TRANSFER WOULD BE INAPPROPRIATE SINCE WE ARE ABLE TO TAKE CARE OF HER HERE. THIS RN, DR ROSE AND RT HAVE BEEN TO BEDSIDE TO ENCOURAGE THE PT TO KEEP HER BIPAP ON BECAUSE THAT IS THE BEST OPTION FOR HER BREATHING. PT RIPPED OFF BIPAP AND INSISTED THAT WE PUT HER ON HER NASAL CANNULA AGAIN. 4L O2 PLACED AT THIS TIME UNTIL PT CALMS DOWN.
--- NOTE | 2021-06-25 18:25 | PC.NURSE ---
RT JUST PLACED PT BACK ON BIPAP PER HER REQUEST. SATS MID 80'S BUT SLOWLY CLIMBING. DR ROSE MADE AWARE. CONT TO MONITOR.
[2021-06-25 18:34] LABS: SARS-CoV-2 RNA PCR Negative
[2021-06-25 18:42] LABS: Alanine Aminotransferase 23 U/L (4-35); Albumin Level 4.1 g/dL (3.5-5.1); Alkaline Phosphatase 103 U/L (38-126); Aspartate Amino Transferase 36 U/L (14-36); Bilirubin,Total 0.3 mg/dL (0.2-1.3); Blood Urea Nitrogen 15 mg/dL (7-17); Calcium 8.9 mg/dL (8.4-10.2); Carbon Dioxide > 40 mmol/L (22-30); Chloride 83 mmol/L (98-107); Estimated CRCL calculation 93 ml/min; Estimated Glomerular Filt Rate > 60; Glucose 170 mg/dL (65-110); Potassium 4.4 mmol/L (3.4-5.0); Sodium 131 mmol/L (137-145)
[2021-06-25 18:45] LABS: NT Pro B Type Natriuretic Pept 2000 pg/mL (5-100)
[2021-06-25 19:01] LABS: Add Urine Microscopic? YES; Appearance Urine Clear (Clear); Bilirubin Urine Negative (Negative); Blood Urine Negative (Negative); Color Urine Yellow (Yellow); Glucose Urine UA Negative (Negative); Ketones Urine 1+ mg/dL (Negative); Leukocyte Esterase Ur Negative LEU/UL (Negative); Mucus Urine Rare /lpf; Nitrate Urine Negative (Negative); Protein Urine 2+ mg/dL (Negative); Specific Grav Ur 1.019 (1.001-1.035); Squamous Epithelial Cell Urine Rare /hpf (Few); Urobilinogen Urine Negative mg/dL (<2.0)
--- NOTE | 2021-06-25 19:17 | PC.NURSE ---
Report received from Nusrat CRUZ & Emmanuel CRUZ
--- NOTE | 2021-06-25 19:44 | ED.SOB ---
HPI - SOB/Dyspnea General Chief Complaint: Shortness of Breath/Dyspnea Stated Complaint: Diff breathing Time Seen by Provider: 06/25/21 16:32 History of Present Illness HPI Narrative: Patient is a 56-year-old female who presents ER with shortness of breath. Worsening last couple days. Associated with swelling in her lower extremities. Reports increased shortness of breath with leaning forward with laying down flat. Picked up by EMS. Received a albuterol nebulizer treatment with minimal improvement. Patient wears 2.5 L of oxygen via nasal cannula at baseline. Denies fevers or chills or sweats. No cough. Denies chest pain Related Data Home Medications Medication Instructions Recorded Confirmed Eliquis 5 mg PO BID 03/06/21 03/06/21 Incruse Ellipta 1 inh INHALATION DAILY 03/06/21 03/06/21 albuterol sulfate 1 - 2 puff INHALATION PRN 03/06/21 03/06/21 budesonide-formoterol [Symbicort] 2 puff INHALATION BID 03/06/21 03/06/21 buspirone 10 mg BID 03/06/21 03/06/21 gabapentin 300 mg TID 03/06/21 03/06/21 metoprolol tartrate 25 mg BID 03/06/21 03/06/21 omeprazole 20 mg PO DAILY 03/06/21 03/06/21 venlafaxine 150 mg PO DAILY 03/06/21 03/06/21 hydroxyzine pamoate 06/25/21 oxybutynin chloride 5 mg PO DAILY 06/25/21 sennosides-docusate sodium PO 06/25/21 [Senexon-S] Allergies Allergy/AdvReac Type Severity Reaction Status Date / Time nitrofurantoin Allergy Unknown HIVES Verified 06/25/21 17:19 oxycodone AdvReac Unknown NAUSEA, Verified 06/25/21 17:19 HEART RACING Review of Systems Review of Systems: All systems reviewed & are unremarkable except as noted in HPI and below Constitutional: Constitutional: Denies chills, Denies fever(s) and Denies weakness ENT: Denies nasal congestion and Denies sore throat Cardiovascular: Cardiovascular: Denies chest pain, Denies rapid heart rate and Denies radiating jaw, neck or arm pain Respiratory: Respiratory: Denies cough, Reports dyspnea and Denies wheezing Comments: Orthopnea Gastrointestinal: Gastrointestinal: Denies abdominal pain, Denies nausea and Denies vomiting PMFSH Past Medical History Medical History Anemia Anxiety Arm fracture, left Arthritis Back pain Bronchitis Chronic respiratory failure COPD (chronic obstructive pulmonary disease) Depression Emphysema of lung Foot fracture, right GERD (gastroesophageal reflux disease) History of pulmonary embolus (PE) Inguinal hernia Kidney stones On home O2 2 L at rest and 3 L with activity Pneumonia Pulmonary embolism Pulmonary hypertension Pulmonary nodules suspicious for bronchogenic carcinoma Sleep apnea Tobacco abuse UTI (urinary tract infection) Surgical History Surgical History Hx of arthroscopy of left knee Hx of elbow surgery lt elbow Hx of inguinal hernia repair Hx of tonsillectomy Hx of tubal ligation Family History Family History Father , at 46 of lung [place] Lung cancer Mother Cerebrovascular accident Grandparent Diabetes mellitus Sibling Lung cancer Social History Social History Social History: the patient has 5 children. She is . And she lives with her sister at this time. Her sister is a durable power transactional attorney for healthcare the patient is a full code. Smoking packs per day: 0.25 Smoking cigarettes per day: 5.0 Years smoked: 45 Smoking pack-years: 11.25 Smoking status: Light tobacco smoker Second hand tobacco smoke exposure: Yes Alcohol intake: unknown Substance use: unknown Substance use type: does not use Additional living arrangements comments: stays with cousin Additional occupation/education comments: disable Gender identity (if verbalized b
[2021-06-25 20:22] LABS: Alveolar/Arterial O2 Gradient 107.4 mmHg; Base Excess ABG 6.9 mEq/l (+/-2.0); Carboxyhemoglobin 6.8 % THb (0-2.0); Fractional Inspired Oxygen 40 %; HCO3 ABG 38.7 mEq/l (22.0-26.0); Methemoglobin ABG 0.1 %THb (0-1.5); Oxygen Content ABG 14.2 %vol (16.0-22.0); PO2 ABG 57.5 mmHg (80.0-100.0); PO2 FiO2 Ratio Arterial Blood 1.44 %; Reduced Hemoglobin 13.7 %THb (0-5.0); Total Hemoglobin 12.7 g/dL (12.0-18.0)
[2021-06-25 20:24] LABS: pH ABG 7.186 (7.350-7.450)
[2021-06-25 20:25] LABS: Oxygen Saturation ABG 80.5 % (95.0-100.0); Oxyhemoglobin 79.4 % THb (90.0-100.0); PCO2 ABG 104.6 mmHg (35.0-45.0)
[2021-06-25 20:26] LABS: Device NON-INVASIVE VENT; Modified Allen's Test Pass; Non-Invasive Expiratory Pressure 8 CMH2O; Non-Invasive Inspiratory Pressure 14 CMH2O; Non-Invasive Vent Rate 22 /MIN; Site Drawn RIGHT RADIAL
[2021-06-25] MEDS: FUROSEMIDE INJ 40 MG/4 ML VIAL 20 MG IV PUSH (20:30)
[2021-06-25] MEDS: FENTANYL 2,500MCG/NS250ML(*CRX 2,500 MCG/250 ML BAG IV CONT (20:45)
[2021-06-25] MEDS: MIDAZOLAM 100MG/NS 100ML(*CRX) 100 MG/100 ML BAG IV CONT (20:50)
--- NOTE | 2021-06-25 21:44 | PM.IMHP ---
H&P: HPI History of Present Illness Date/Time: 06/25/21 21:44 Chief Complaint: Altered mental status [facility] Past Medical History Medical History (Updated 06/26/21 @ 03:11 by Ruth Rangel MD) Anemia Anxiety Arm fracture, left Arthritis Back pain Bronchitis Chronic respiratory failure COPD (chronic obstructive pulmonary disease) Depression Emphysema of lung Foot fracture, right GERD (gastroesophageal reflux disease) History of pulmonary embolus (PE) Inguinal hernia Kidney stones On home O2 2 L at rest and 3 L with activity Pneumonia Pulmonary embolism Pulmonary hypertension Pulmonary nodules suspicious for bronchogenic carcinoma Sleep apnea Tobacco abuse UTI (urinary tract infection) Surgical History Surgical History Hx of arthroscopy of left knee Hx of elbow surgery lt elbow Hx of inguinal hernia repair Hx of tonsillectomy Hx of tubal ligation Family History Family History Father , at 46 of lung [place] Lung cancer Mother Cerebrovascular accident Grandparent Diabetes mellitus Sibling Lung cancer Social History Social History Social History: the patient has 5 children. She is . And she lives with her sister at this time. Her sister is a durable power employment law attorney for healthcare the patient is a full code. Smoking packs per day: 0.25 Smoking cigarettes per day: 5.0 Years smoked: 45 Smoking pack-years: 11.25 Smoking status: Current every day smoker Tobacco type: cigarettes Second hand tobacco smoke exposure: Yes Alcohol intake: unknown Substance use: unknown Substance use type: does not use Additional living arrangements comments: stays with cousin Additional occupation/education comments: disable Gender identity (if verbalized by the patient): Female Spiritual care concerns: No Agree to blood products: Yes Meds Home Medications and Allergies Home Medications Medication Instructions Recorded Confirmed Type Eliquis 5 mg PO BID 03/06/21 06/26/21 History Incruse Ellipta 1 inh INHALATION DAILY 03/06/21 06/26/21 History albuterol sulfate 1 - 2 puff INHALATION PRN 03/06/21 06/25/21 History budesonide-formoterol [Symbicort] 2 puff INHALATION BID 03/06/21 06/26/21 History buspirone 10 mg PO BID 03/06/21 06/26/21 History gabapentin 300 mg PO TID 03/06/21 06/26/21 History metoprolol tartrate 25 mg PO BID 03/06/21 06/26/21 History venlafaxine 150 mg PO DAILY 03/06/21 06/26/21 History hydrocodone-acetaminophen 1 tablet PO Q6H PRN 06/25/21 06/26/21 History hydroxyzine pamoate 50 mg PO QID PRN 06/25/21 06/26/21 History oxybutynin chloride 5 mg PO DAILY 06/25/21 06/26/21 History Allergies Allergy/AdvReac Type Severity Reaction Status Date / Time nitrofurantoin Allergy Unknown HIVES Verified 06/25/21 17:19 oxycodone AdvReac Unknown NAUSEA, Verified 06/25/21 17:19 HEART RACING Vital Signs Vital Signs - 24 hr 06/25/21 16:17 06/25/21 16:20 06/25/21 17:01 Temperature 98.2 F Pulse Rate 110 H 108 H Respiratory Rate 20 21 H Blood Pressure 155/105 H 158/99 H Pulse Oximetry 100 100 100 06/25/21 18:00 06/25/21 18:25 06/25/21 18:31 Temperature Pulse Rate 120 H 126 H 112 H Respiratory Rate 18 15 19 Blood Pressure 168/99 H 150/101 H 144/96 H Pulse Oximetry 96 84 L 92 06/25/21 18:35 06/25/21 20:45 06/25/21 20:50 Temperature Pulse Rate 112 H 119 H 119 H Respiratory Rate 22 H 14 14 Blood Pressure Pulse Oximetry 92 06/25/21 20:55 06/25/21 21:05 06/25/21 21:10 Temperature Pulse Rate 125 H 125 H 126 H Respiratory Rate 24 H 24 H 24 H Blood Pressure Pulse Oximetry 06/25/21 21:20 06/25/21 21:25 06/25/21 21:30 Temperature Pulse Rate 124 H 124 H 123 H Respiratory Rate 2
[2021-06-25 21:51] LABS: Procalcitonin 0.1 ng/mL
--- NOTE | 2021-06-25 23:00 | ADMGEN ---
This patient, Sharifa Mosquera, was admitted to Intensive Care Unit-2. Patient/family oriented to hospital policies and general routines including ID bracelet, bed and alarms, visiting hours, pain management, procedures, bathroom and other care routines, personal items, smoking policy, room service/diet, and visiting hours. Information on how to activate the Rapid Response Team has been discussed. Patient/Family are encouraged to report perceived risks to care and to ask questions if they do not understand what they are told or what they should do.
[2021-06-26] VITALS (49 sets, daily range): BP systolic 69–157; BP diastolic 53–104; PULSE 58–131; RESP 20–24; TEMP 37.4–38.3; O2SAT 94–100; BMI 17.0
--- NOTE | 2021-06-26 | ECHO_ITS ---
Patient Info Name: Sharifa Mosquera Age: 56 years : 1965 Gender: Female Ht: 65 in Wt: 102 lbs BSA: 1.44 m2 HR: 95 bpm BP: 102 / 84 mmHg Technical Quality: Fair Exam Date: 06/26/2021 10:05 AM Exam Location: [facility] Patient Status: Inpatient Admit Date: 06/26/2021 Staff Ordering Physician: Adelfo Patel MD Inside Account Representative: Suzan Arteaga RDCS Attending Provider: Ruth Rangel MD Exam Type: CA echo doppler color flow Study Info Indications I50.9 - Heart failure, unspecified Complete two-dimensional, color flow and Doppler transthoracic echocardiogram is performed. Summary 1. Complete two-dimensional, color flow and Doppler transthoracic echocardiogram is performed. 2. Left ventricular systolic function is normal, estimated at 55-60%. 3. The left ventricular diastolic function is grade I diastolic dysfunction. 4. No pulmonary hypertension, estimated pulmonary arterial systolic pressure is 29 mmHg. 5. There is mild tricuspid valve regurgitation. 6. There is small pericardial effusion. No evidence of tamponade. Left Ventricle Left ventricular chamber dimension is normal. Left ventricular systolic function is normal, estimated at 55-60%. There is no increased left ventricular wall thickness. Left ventricular septal wall motion is normal. The left ventricular diastolic function is grade I diastolic dysfunction. Right Ventricle Right ventricular chamber dimension is normal. Right ventricular systolic function is normal. Left Atria Left atrial chamber dimension is normal. Right Atria Right atrial chamber dimension is normal. Atrial Septum Intact interatrial septum visualized by color flow imaging. Aortic Valve The aortic valve is not well visualized. There is no aortic valve stenosis. There is no aortic valve regurgitation. Pulmonic Valve The pulmonic valve is normal. There is no pulmonic valve stenosis. There is no pulmonic regurgitation. Mitral Valve The mitral valve has normal leaflets. There is no mitral valve stenosis. There is no mitral valve regurgitation. Tricuspid Valve The tricuspid valve leaflets are normal. There is no significant tricuspid valve stenosis. There is mild tricuspid valve regurgitation. No pulmonary hypertension, estimated pulmonary arterial systolic pressure is 29 mmHg. No tricuspid valve vegetation visualized. Pericardium/Pleural There is small pericardial effusion. No evidence of tamponade. Inferior Vena Cava Normal inferior vena cava with >50% collapse upon inspiration consistent with normal right atrial pressure, 5 mmHg. Aorta The aortic root size at the sinus of Valsalva is normal. The prox ascending aorta size is normal. Left Ventricular Outflow Tract Name Value Normal LVOT 2D LVOT Diameter 2.0 cm LVOT Doppler LVOT Peak Gradient 5 mmHg LVOT Mean Gradient 3 mmHg LVOT VTI 14 cm LVOT VTI/AV VTI Ratio 0.7 LVOT Stroke Volume 46 ml LVOT CO 4
[2021-06-26 00:14] LABS: Alveolar/Arterial O2 Gradient 111.6 mmHg; Base Excess ABG 11.4 mEq/l (+/-2.0); Device VENTILATOR; Fractional Inspired Oxygen 40 %; HCO3 ABG 36.6 mEq/l (22.0-26.0); Methemoglobin ABG 0.2 %THb (0-1.5); Modified Allen's Test Pass; Oxygen Content ABG 15.9 %vol (16.0-22.0); Oxygen Saturation ABG 98.4 % (95.0-100.0); Oxyhemoglobin 94.7 % THb (90.0-100.0); PCO2 ABG 50.5 mmHg (35.0-45.0); PO2 ABG 115.5 mmHg (80.0-100.0); PO2 FiO2 Ratio Arterial Blood 2.89 %; Reduced Hemoglobin 2.1 %THb (0-5.0); Site Drawn RIGHT BRACHIAL; Total Hemoglobin 11.8 g/dL (12.0-18.0); pH ABG 7.478 (7.350-7.450)
[2021-06-26 00:15] LABS: Arterial Blood Gas PEEP 5 cmH2O; Arterial Blood Gas Tidal Volume 340 ml; Arterial Blood Gas Vent Mode CMV; Arterial Blood Gas Ventilator rate 24 /MIN
[2021-06-26 05:49] LABS: Base Excess ABG 10.1 mEq/l (+/-2.0); Carboxyhemoglobin 0.7 % THb (0-2.0); Fractional Inspired Oxygen 40 %; HCO3 ABG 35.6 mEq/l (22.0-26.0); Methemoglobin ABG 0.1 %THb (0-1.5); Oxygen Content ABG 16.3 %vol (16.0-22.0); Oxygen Saturation ABG 97.4 % (95.0-100.0); Oxyhemoglobin 96.1 % THb (90.0-100.0); PCO2 ABG 52.3 mmHg (35.0-45.0); PO2 ABG 94.1 mmHg (80.0-100.0); PO2 FiO2 Ratio Arterial Blood 2.35 %; Reduced Hemoglobin 3.1 %THb (0-5.0); pH ABG 7.451 (7.350-7.450)
[2021-06-26 05:50] LABS: Device VENTILATOR; Modified Allen's Test Pass; Site Drawn RIGHT RADIAL
[2021-06-26 05:51] LABS: Arterial Blood Gas Ventilator rate 24 /MIN
[2021-06-26 05:52] LABS: Arterial Blood Gas PEEP 5 cmH2O; Arterial Blood Gas Tidal Volume 340 ml; Arterial Blood Gas Vent Mode CMV
[2021-06-26 08:36] LABS: Basophils Percent Auto 0.3 % (0.2-1.2); Eosinophils Absolute Auto 0.1 K/mm3 (0-0.3); Eosinophils Percent Auto 0.8 % (0-4.4); Hemoglobin 11.1 g/dL (12.0-15.0); Immature Granulocyte Absolute 0.03 K/mm3 (0.00-0.031); Immature Granulocyte Percent A 0.3 % (0-0.5); Lymphocytes Absolute Auto 2.69 K/mm3 (0.9-3.2); Lymphocytes Percent Auto 22.9 % (18.3-44.2); Mean Corpuscular HGB Conc 31.7 g/dl (32-36); Mean Corpuscular Hemoglobin 31.4 pg (26-34); Mean Corpuscular Volume 98.9 fl (80-100); Mean Platelet Volume 10.8 fl (7.4-10.4); Monocytes Absolute Auto 1.5 K/mm3 (0.1-0.6); Monocytes Percent Auto 12.9 % (2.6-8.5); Neutrophils Absolute Auto 7.4 K/mm3 (1.3-6.7); Neutrophils Percent Auto 62.8 % (45.5-73.1); Platelet Count Result 294 k/mm3 (150-375); Red Blood Count 3.54 M/mm3 (4.2-5.4); Red Cell Distribution Width 12.2 % (11.5-14.5); White Blood Count 11.8 K/mm3 (4.5-10.0)
[2021-06-26] MEDS: SODIUM CHLORIDE 0.9% IV 500 ML IV CONT (08:47)
[2021-06-26] MEDS: dexmedeTOMIDine 400 MCG/100 ML 400 MCG/100 ML BAG IV CONT (08:49)
[2021-06-26 08:52] LABS: Alanine Aminotransferase 20 U/L (4-35); Albumin Level 3.4 g/dL (3.5-5.1); Alkaline Phosphatase 91 U/L (38-126); Anion Gap 6 mmol/L (8-16); Aspartate Amino Transferase 35 U/L (14-36); Bilirubin,Total 0.3 mg/dL (0.2-1.3); Blood Urea Nitrogen 18 mg/dL (7-17); Calcium 8.2 mg/dL (8.4-10.2); Carbon Dioxide 36 mmol/L (22-30); Chloride 87 mmol/L (98-107); Estimated CRCL calculation 66 ml/min; Estimated Glomerular Filt Rate > 60; Glucose 104 mg/dL (65-110); Magnesium 1.6 mg/dL (1.6-2.3); Phosphorus 2.7 mg/dL (2.5-4.5); Potassium 3.4 mmol/L (3.4-5.0); Sodium 129 mmol/L (137-145)
[2021-06-26] MEDS: METOPROLOL TARTRATE 25 MG TABLET PO (08:58)
[2021-06-26] MEDS: APIXABAN 5 MG TABLET PO ×2 (08:58→16:46)
[2021-06-26] MEDS: predniSONE 20 MG TABLET 60 MG FEED TUBE (08:58)
[2021-06-26] MEDS: VENLAFAXINE HCL XR 75 MG CAP.ER.24H 150 MG PO (08:58)
[2021-06-26] MEDS: busPIRone HCL 10 MG TABLET PO ×2 (08:59→16:46)
[2021-06-26 09:00] LABS: Glucose Point of Care 117 mg/dl (65-105)
--- NOTE | 2021-06-26 10:06 | WPDCNINT ---
Assessment and Plan Assessment and plan (1) Acute and chronic respiratory failure with hypercapnia: Code(s): J96.22 - Acute and chronic respiratory failure with hypercapnia Status: Acute Assessment and Plan: patient has a baseline severe COPD and on home oxygen presented with acute on chronic respiratory failure and failed BiPAP therapy in ER requiring intubation and mechanical ventilation ABG reviewed - decrease respiratory rate to 20 chest x-ray reviewed- advance ET tube by 2 cm start daily prednisone continue bronchodilators continue Rocephin azithromycin culture sent and pending COVID PCR was negative (2) Acute exacerbation of chronic obstructive airways disease: Code(s): J44.1 - Chronic obstructive pulmonary disease with (acute) exacerbation Status: Acute Assessment and Plan: see above (3) GERD (gastroesophageal reflux disease): Qualifiers: Esophagitis presence: esophagitis presence not specified Qualified Code(s): K21.9 - Gastro-esophageal reflux disease without esophagitis Code(s): K21.9 - Gastro-esophageal reflux disease without esophagitis Status: Chronic Assessment and Plan: Continue PPI. (4) CHF (congestive heart failure): Code(s): I50.9 - Heart failure, unspecified Status: Acute Assessment and Plan: she has a BNP elevated but does not appear to be any significant volume overload her blood pressure is also although adequate is on the softer side due to sedation hold diuretics at this time (5) Pulmonary hypertension: Code(s): I27.20 - Pulmonary hypertension, unspecified Status: Acute Assessment and Plan: secondary to COPD (6) Sinus tachycardia: Code(s): R00.0 - Tachycardia, unspecified Status: Acute Assessment and Plan: 500 mL saline bolus add Precedex for sedation continue per tube metoprolol TSH is pending Additional Plan DVT prophylaxis - continue Eliquis Stress ulcer prophylaxis - continue PPI Nutrition - start tube feeds. chest x-ray reviewed and gastric tube advanced by 5-10 cm Code Status - Full Code Total Critical Care Time - 35 minutes Due to a high probability of clinically significant, life threatening deterioration, the patient required my highest level of preparedness to intervene emergently and I personally spent this critical care time directly and personally managing the patient. This critical care time included obtaining a history; examining the patient; pulse oximetry; ordering and review of studies; arranging urgent treatment with development of a management plan; evaluation of patient's response to treatment; frequent reassessment; and discussions with other providers. It was exclusive of separately billable procedures and treating other patients and teaching time. Please see Assessment and Plan section and the rest of the note for further information on patient assessment and treatment Ampoule Inspector Consult Note Consult date: 06/26/21 HPI: Sharifa Mosquera is a 56 year old female with history of advanced COPD and on home oxygen presented yesterday to ER with chief complaint of shortness of breath. patient has history of frequent admissions for respiratory failure requiring intubation. Patient was in respiratory distress and was given bronchodilators and placed BiPAP. ABG showed hypercarbia and respiratory acidosis which got worse despite being on BiPAP therapy. Patient was then intubated and placed on mechanical ventilation. Patient admitted to ICU for further evaluation and management. This morning when I saw the patient she continues to be sedated and mechanical ventilation. History obtained from chart and Physician sign out. Pt intubated and sedated and unable to provide any further history. Review of Systems Review of Systems: ROS unobtainable: Yes unobtainable due to endotracheal tube, unobtainable due to medical condition and unobtai
[2021-06-26 10:29] LABS: Thyroid Stimulating Hormone Reflex 0.311 uIU/mL (0.465-4.68)
[2021-06-26 12:40] LABS: Glucose Point of Care 121 mg/dl (65-105)
[2021-06-26] MEDS: ACETAMINOPHEN ELIXIR 325 MG/10.15 ML UDC 650 MG PO (13:19)
[2021-06-26] MEDS: SODIUM CHLORIDE 0.9% IV 1,000 ML 999 ML IV CONT (13:53)
[2021-06-26] MEDS: LIDOCAINE HCL 1% PF INJ 5 ML VIAL INFILTRATE (14:25)
[2021-06-26] MEDS: SODIUM CHLORIDE 0.9% IV 1,000 ML 100 ML IV CONT (16:36)
--- NOTE | 2021-06-26 16:56 | PM.IMPN ---
Progress Note: A&P Assessment and Plan (1) Septic shock: Code(s): A41.9 - Sepsis, unspecified organism; R65.21 - Severe sepsis with septic shock Status: Acute Assessment and Plan: BP elevated on admission but has dropped to 69/55 today. Could be related to the changes in her sedation but concern for septic shock since fevers occurring at the same time. Etiology would most likely be from her PNA but Abd exam also is of concern so can not exclude intra-abdominal process. She has been started on Cole with improved BP. Check CT A/P to exclude abdominal pathology. (2) Acute and chronic respiratory failure with hypercapnia: Code(s): J96.22 - Acute and chronic respiratory failure with hypercapnia Status: Acute Assessment and Plan: Patient has a baseline severe COPD and on home oxygen. She presents with SOB and CXR showing PNA. ABG 7.29//85 that worsened with BiPAP requiring intubation. Now having fevers with HoTN. Started on Prednisone as well for possible COPD exacerbation. Continue mechanical ventilation. Wean as tolerated. Sedation medication being adjusted. Appreciate corporate responsibility officer input. (3) Pneumonia: Code(s): J18.9 - Pneumonia, unspecified organism Status: Acute Assessment and Plan: CXR showing patchy bilateral airspace disease, consistent with pneumonia. She is now having fevers and BP soft. HoTN could be related to sedation but concern for septic shock from PNA. BCx NGTD. Continue Rocephin and Azithromycin. Check sputum. Check influenza and urine Ag. (4) Acute exacerbation of chronic obstructive airways disease: Code(s): J44.1 - Chronic obstructive pulmonary disease with (acute) exacerbation Status: Acute Assessment and Plan: COPD exacerbation contributing to her respiroatry failure. As above (5) CHF (congestive heart failure): Code(s): I50.9 - Heart failure, unspecified Status: Acute Assessment and Plan: BNP 1999. CS showing patchy bilateral disease more consistent with PNA then CHF. Echo showing EF 55-60% with Grade I diastolic dysfunction. No pulmonary HTN. She has HoTN and clinically does not appear to be fluid overloaded. Doubt she has CHF and feel the BNP related to the HoTN. (6) History of pulmonary embolus (PE): Code(s): Z86.711 - Personal history of pulmonary embolism Status: Acute Assessment and Plan: Continue Eliquis (7) GERD (gastroesophageal reflux disease): Qualifiers: Esophagitis presence: esophagitis presence not specified Qualified Code(s): K21.9 - Gastro-esophageal reflux disease without esophagitis Code(s): K21.9 - Gastro-esophageal reflux disease without esophagitis Status: Chronic Assessment and Plan: Add protonix (8) Tobacco dependence: Code(s): F17.200 - Nicotine dependence, unspecified, uncomplicated Status: Chronic Assessment and Plan: Patient will be educated about benefits of smoking cessation when able Subjective Date/time seen: 06/26/21 16:56 Interval history: 56yo female with chronic respiratory failure, COPD, JONATHAN and on going tobacco use here for SOB. Patient intubated and sedated thus I am provide history. Patient on fentanyl and Versed but being transition to Precedex today. Review of Systems Review of Systems: ROS unobtainable: Yes unobtainable due to endotracheal tube Exam Narrative: Tm 100.9 99.9 82/58 69 20 100% MV Gen - thini female intubated and sedated Chest - lungs clear distant BS anteriorly. CV - RRR S1/S2. Tele showing brief run of SVT Abd - firm, tense, tympanitic - Boss secured draining clear yellow urine Ext - No pedal edema Neuro - restless but unresponsive Skin - Warm and dry Objective Data Vital Signs Vital Signs: Vital Signs - 24 hr 06/25/21 17:01 06/25/21 18:00 06/25/21 18:25 Temperature Pulse Rate 108 H 120 H 126 H Respiratory Rate 21 H 18
[2021-06-26] MEDS: FENTANYL 2,500MCG/NS250ML(*CRX 2,500 MCG/250 ML BAG 12.5 MCG IV CONT ×2 (17:15→18:37)
[2021-06-26 18:34] LABS: Glucose Point of Care 163 mg/dl (65-105)
[2021-06-26] MEDS: PANTOPRAZOLE SODIUM IV 40 MG VIAL IV PUSH (18:45)
[2021-06-26] MEDS: MIDAZOLAM 100MG/NS 100ML(*CRX) 100 MG/100 ML BAG IV CONT (19:12)
[2021-06-26 19:17] LABS: Influenza Control Positive
[2021-06-26 21:04] LABS: Glucose Point of Care 127 mg/dl (65-105)
--- NOTE | 2021-06-26 21:30 | PC.NURSE ---
Patient transported to CT via bed with Respiratory and Nurse.
[2021-06-26] MEDS: CENTRAL LINE FLUSH 10 ML IV PUSH (22:24)
[2021-06-26] MEDS: ALBUTEROL SULFATE NEB 2.5 MG/0.5 ML INH INHALATION (23:44)
[2021-06-27] VITALS (38 sets, daily range): BP systolic 89–163; BP diastolic 67–100; PULSE 62–139; RESP 10–22; TEMP 37–38.2; O2SAT 89–100
[2021-06-27 00:10] LABS: Total Triiodothyronine (T3) 1.54 NG/ML (0.97-1.69)
[2021-06-27] MEDS: dexmedeTOMIDine 400 MCG/100 ML 400 MCG/100 ML BAG 5.8 MCG IV CONT (00:41)
[2021-06-27 01:28] LABS: Glucose Point of Care 122 mg/dl (65-105)
[2021-06-27] MEDS: ALBUTEROL SULFATE NEB 2.5 MG/0.5 ML INH INHALATION ×2 (02:25→09:20)
[2021-06-27 04:12] LABS: Hematocrit 32.6 % (37.0-47.0); Hemoglobin 10.5 g/dL (12.0-15.0); Mean Corpuscular HGB Conc 32.2 g/dl (32-36); Mean Corpuscular Hemoglobin 32.4 pg (26-34); Mean Corpuscular Volume 100.6 fl (80-100); Mean Platelet Volume 10.9 fl (7.4-10.4); Platelet Count Result 291 k/mm3 (150-375); Red Blood Count 3.24 M/mm3 (4.2-5.4); Red Cell Distribution Width 12.3 % (11.5-14.5); White Blood Count 9.9 K/mm3 (4.5-10.0)
[2021-06-27 04:32] LABS: Alanine Aminotransferase 19 U/L (4-35); Albumin Level 3.4 g/dL (3.5-5.1); Alkaline Phosphatase 77 U/L (38-126); Anion Gap 2 mmol/L (8-16); Aspartate Amino Transferase 34 U/L (14-36); Bilirubin,Total 0.3 mg/dL (0.2-1.3); Blood Urea Nitrogen 21 mg/dL (7-17); Calcium 8.3 mg/dL (8.4-10.2); Carbon Dioxide 37 mmol/L (22-30); Chloride 89 mmol/L (98-107); Estimated CRCL calculation 66 ml/min; Estimated Glomerular Filt Rate > 60; Glucose 110 mg/dL (65-110); Magnesium 1.8 mg/dL (1.6-2.3); Phosphorus 4.2 mg/dL (2.5-4.5); Potassium 4.4 mmol/L (3.4-5.0); Sodium 128 mmol/L (137-145)
[2021-06-27] MEDS: ACETAMINOPHEN ELIXIR 325 MG/10.15 ML UDC 650 MG PO (05:11)
[2021-06-27] MEDS: CENTRAL LINE FLUSH 10 ML IV PUSH ×3 (05:12→21:24)
[2021-06-27 05:57] LABS: Alveolar/Arterial O2 Gradient 101.1 mmHg; Carboxyhemoglobin 0.3 % THb (0-2.0); Fractional Inspired Oxygen 30 %; HCO3 ABG 32.6 mEq/l (22.0-26.0); Methemoglobin ABG 0.3 %THb (0-1.5); Oxygen Content ABG 15.1 %vol (16.0-22.0); Oxygen Saturation ABG 89.2 % (95.0-100.0); PO2 ABG 61.4 mmHg (80.0-100.0); PO2 FiO2 Ratio Arterial Blood 2.05 %; Total Hemoglobin 12.3 g/dL (12.0-18.0); pH ABG 7.331 (7.350-7.450)
[2021-06-27 05:59] LABS: PCO2 ABG 63.1 mmHg (35.0-45.0)
[2021-06-27 06:00] LABS: Device VENTILATOR; Modified Allen's Test Pass; Oxyhemoglobin 87.4 % THb (90.0-100.0); Site Drawn RIGHT RADIAL
[2021-06-27 06:01] LABS: Arterial Blood Gas PEEP 5 cmH2O; Arterial Blood Gas Tidal Volume 340 ml; Arterial Blood Gas Vent Mode CMV; Arterial Blood Gas Ventilator rate 20 /MIN
--- NOTE | 2021-06-27 09:02 | WPDINTPN ---
Progress Note: A&P Assessment and Plan (1) Acute and chronic respiratory failure with hypercapnia: Code(s): J96.22 - Acute and chronic respiratory failure with hypercapnia Status: Acute Assessment and Plan: patient has a baseline severe COPD and on home oxygen presented with acute on chronic respiratory failure and failed BiPAP therapy in ER requiring intubation and mechanical ventilation ABG reviewed - continue current vent settings chest x-ray reviewed continue daily prednisone continue bronchodilators continue Rocephin azithromycin culture sent and pending COVID PCR was negative will try PSV weaning trial today 06/26/2020 CT C/A/P IMPRESSION: 1. Multiple bilateral pulmonary nodules without significant change from prior examination allowing for differences of technique. No significant change to bilateral pulmonary nodules. 2: Severe emphysema. 3: Pulmonary arterial hypertension. 4: No acute abdominal abnormality. (2) Acute exacerbation of chronic obstructive airways disease: Code(s): J44.1 - Chronic obstructive pulmonary disease with (acute) exacerbation Status: Acute Assessment and Plan: see above (3) GERD (gastroesophageal reflux disease): Qualifiers: Esophagitis presence: esophagitis presence not specified Qualified Code(s): K21.9 - Gastro-esophageal reflux disease without esophagitis Code(s): K21.9 - Gastro-esophageal reflux disease without esophagitis Status: Chronic Assessment and Plan: Continue PPI. (4) CHF (congestive heart failure): Code(s): I50.9 - Heart failure, unspecified Status: Acute Assessment and Plan: she has a BNP elevated but does not appear to be any significant volume overload she she received IV fluids due to low blood pressure diuretics on hold (5) Pulmonary hypertension: Code(s): I27.20 - Pulmonary hypertension, unspecified Status: Acute Assessment and Plan: secondary to COPD (6) Sinus tachycardia: Code(s): R00.0 - Tachycardia, unspecified Status: Acute Assessment and Plan: improved with IV fluid bolus and Precedex for sedation metoprolol had to be held due to low blood TSH is 0.311 which is lower than normal (7) Constipation: Code(s): K59.00 - Constipation, unspecified Status: Acute Assessment and Plan: start scheduled MiraLax and p.r.n. Dulcolax suppository (8) Hypotension: Code(s): I95.9 - Hypotension, unspecified Status: Acute Assessment and Plan: patient blood pressure dropped intubation this likely from sedation she was given IV fluid and is on low-dose Cole-Synephrine for blood pressure support check lactic acid level (9) Fever: Code(s): R50.9 - Fever, unspecified Status: Acute Assessment and Plan: patient febrile yesterday and overnight her WBCs normal and procalcitonin level is low UA was unremarkable for UTI CT chest abdomen pelvis reviewed blood and sputum cultures have been sent and are pending change antibiotics to broad-spectrum Additional Plan DVT prophylaxis - continue Eliquis Stress ulcer prophylaxis - continue PPI Nutrition - On tube feeds. Code Status - Full Code Total Critical Care Time - 32 minutes Due to a high probability of clinically significant, life threatening deterioration, the patient required my highest level of preparedness to intervene emergently and I personally spent this critical care time directly and personally managing the patient. This critical care time included obtaining a history; examining the patient; pulse oximetry; ordering and review of studies; arranging urgent treatment with development of a management plan; evaluation of patient's response to treatment; frequent reassessment; and discussions with other providers. It was exclusive of separately billable procedures and treating other patients and teaching time. Please
[2021-06-27] MEDS: APIXABAN 5 MG TABLET PO ×2 (09:11→16:51)
[2021-06-27] MEDS: predniSONE 20 MG TABLET 60 MG FEED TUBE (09:11)
[2021-06-27] MEDS: busPIRone HCL 10 MG TABLET PO ×2 (09:12→16:51)
[2021-06-27] MEDS: polyethylene glycoL 3350 17 GM POWD.PACK FEED TUBE (09:13)
[2021-06-27] MEDS: PANTOPRAZOLE SODIUM IV 40 MG VIAL IV PUSH (09:13)
[2021-06-27] MEDS: VENLAFAXINE HCL XR 75 MG CAP.ER.24H 150 MG PO (09:14)
[2021-06-27] MEDS: IPRATROPIUM BR 0.02% INH SOLN 0.5 MG/2.5 ML VIAL INHALATION (09:22)
[2021-06-27] MEDS: FENTANYL 2,500MCG/NS250ML(*CRX 2,500 MCG/250 ML BAG 12.5 MCG IV CONT (09:36)
[2021-06-27 10:11] LABS: Glucose Point of Care 158 mg/dl (65-105)
[2021-06-27 10:58] LABS: Alveolar/Arterial O2 Gradient 62.4 mmHg; Fractional Inspired Oxygen 30 %; HCO3 ABG 34.2 mEq/l (22.0-26.0); Oxygen Content ABG 14.2 %vol (16.0-22.0); Oxygen Saturation ABG 91.4 % (95.0-100.0); Oxyhemoglobin 90.1 % THb (90.0-100.0); Total Hemoglobin 11.2 g/dL (12.0-18.0); pH ABG 7.305 (7.350-7.450)
[2021-06-27 11:00] LABS: PCO2 ABG 70.2 mmHg (35.0-45.0)
[2021-06-27 11:01] LABS: Arterial Blood Gas PEEP 5 cmH2O; Arterial Blood Gas Vent Mode SPONTANEOUS; Device VENTILATOR; Modified Allen's Test Pass; Site Drawn RIGHT RADIAL
[2021-06-27 11:02] LABS: Arterial Blood Gas Pressure Support 5 cmH2O
[2021-06-27] MEDS: MIDAZOLAM HCL (*CRX) 2 MG/2 ML VIAL 4 MG IV PUSH (11:06)
--- NOTE | 2021-06-27 12:06 | PCNFU ---
Nutrition Follow-Up Complete: Inadequate Oral Intake as related to mechanical ventilation as evidenced by tube feeidngs. Goal: Meet estimated nutritional needs Patient is progressing towards goal, we will continue current goal. Pt current nutrition is Vital AF 1.2 at 55 ml/hr over 22 hours. Last recorded weight is 53.6 kg, up from 46.4 kg on admit. Bowel Motility:+BM reported 3/3 Labs Reviewed:Cr 0.6,Na 128, BUN 21, Alb 3.4, Hct 32.6,Hgb 10.5 Meds Noted:Precedex, Fentanyl, Eliquis, Buspar, Rocephin, Ditropan, Prednisone,Miralax, Maxipime, Vancomycin. Skin: WNL Additional Notes: Patient remains on mechanical vent, tube feedings are on hold for breathing trial today. If patient remains on tube feedings recommend continuing Vital AF 1.2 at 55 ml/hr over 22 hours. This will provide 1452 kcals/91 gms protein/981 ml water. Meeting 100% of caloric/protein needs. Free water flush 30 ml q 4 hours. Agree with diet orders. Will monitor in ICU rounds and reassessing every Wednesday and Wednesday.
[2021-06-27] MEDS: dexmedeTOMIDine 400 MCG/100 ML 400 MCG/100 ML BAG 6.96 MCG IV CONT (13:39)
[2021-06-27 13:40] LABS: Glucose Point of Care 192 mg/dl (65-105)
--- NOTE | 2021-06-27 14:02 | PM.IMPN ---
Progress Note: A&P Assessment and Plan (1) Septic shock: Code(s): A41.9 - Sepsis, unspecified organism; R65.21 - Severe sepsis with septic shock Status: Acute Assessment and Plan: BP elevated on admission but has dropped to 69/55 yesterday. Could be related to the changes in her sedation but concern for septic shock since fevers occurring at the same time. Etiology would most likely be from her PNA/Tracheitis. CT Abd negative for acute pathology. Continue phenylephrine and wean as BP tolerates. (2) Acute and chronic respiratory failure with hypercapnia: Code(s): J96.22 - Acute and chronic respiratory failure with hypercapnia Status: Acute Assessment and Plan: Patient has a baseline severe COPD and on home oxygen. She presents with SOB and CXR showing PNA so started on abx. ABG 7.29/83/85 that worsened with BiPAP requiring intubation. Now having fevers with HoTN. Started on Prednisone as well for possible COPD exacerbation. Continue mechanical ventilation. Wean as tolerated. Sedation medication being adjusted. Appreciate first coat operator input. (3) Pneumonia: Code(s): J18.9 - Pneumonia, unspecified organism Status: Acute Assessment and Plan: CXR showing patchy bilateral airspace disease, consistent with pneumonia. She is now having fevers and BP soft. HoTN could be related to sedation but concern for septic shock from PNA. CT scan showing multiple pulmonary nodules without change. No obvious pulmonary infiltratives noted. BCx NGTD. Sputum pending. Consider tracheitis. Continue Rocephin and Azithromycin. (4) Acute exacerbation of chronic obstructive airways disease: Code(s): J44.1 - Chronic obstructive pulmonary disease with (acute) exacerbation Status: Acute Assessment and Plan: COPD exacerbation contributing to her respiroatry failure. Continue Prednisone. As above (5) CHF (congestive heart failure): Code(s): I50.9 - Heart failure, unspecified Status: Acute Assessment and Plan: BNP 1999. CT showing pulmonary nodules but no evidence of pulmonary edema. Echo showing EF 55-60% with Grade I diastolic dysfunction. No pulmonary HTN (but pulmonary arteries enlarged by CT). She has HoTN and clinically does not appear to be fluid overloaded. Doubt she has CHF and feel the BNP related to the HoTN. (6) History of pulmonary embolus (PE): Code(s): Z86.711 - Personal history of pulmonary embolism Status: Acute Assessment and Plan: hgb 10.5. Continue Eliquis (7) GERD (gastroesophageal reflux disease): Qualifiers: Esophagitis presence: esophagitis presence not specified Qualified Code(s): K21.9 - Gastro-esophageal reflux disease without esophagitis Code(s): K21.9 - Gastro-esophageal reflux disease without esophagitis Status: Chronic Assessment and Plan: Continue Protonix (8) Tobacco dependence: Code(s): F17.200 - Nicotine dependence, unspecified, uncomplicated Status: Chronic Assessment and Plan: Patient will be educated about benefits of smoking cessation when able Subjective Date/time seen: 06/27/21 14:02 Interval history: 56yo female with chronic respiratory failure, COPD, JONATHAN and on going tobacco use here for SOB. Patient remains intubated and sedated. Versed stopped earlier this morning. Patient remains on fentanyl and Precedex. Tolerated the breathing trial but then became agitated with a drop in her SpO2. Exam Narrative: Tm 100.7 91/67 100 20 100% MV Gen - thin female intubated and sedated HEENT - ETT and OGT secured Chest - lungs clear anteriorly and in the flanks CV - RRR S1/S2. Tele showing no significant dysrhythmias Abd - firm but less tense. +BS. - Boss secured draining clear yellow urine Ext - No pedal edema Neuro - alert, follows commands. Skin - Warm and dry Objective Data Vital Signs Vital Signs: Vital Signs - 24 h
[2021-06-27] MEDS: INSULIN ASPART (*BKC) 100 UNITS/ML SUB-Q (16:49)
[2021-06-27 16:50] LABS: Glucose Point of Care 206 mg/dl (65-105)
[2021-06-27 19:35] LABS: Glucose Point of Care 124 mg/dl (65-105)
[2021-06-27] MEDS: dexmedeTOMIDine 400 MCG/100 ML 400 MCG/100 ML BAG 10.44 MCG IV CONT (23:22)
[2021-06-27 23:25] LABS: Glucose Point of Care 147 mg/dl (65-105)
[2021-06-28] VITALS (35 sets, daily range): BP systolic 93–111; BP diastolic 63–82; PULSE 58–125; RESP 18–100; TEMP 36.3–37.6; O2SAT 18–100
[2021-06-28 03:13] LABS: Glucose Point of Care 181 mg/dl (65-105)
[2021-06-28] MEDS: FENTANYL 2,500MCG/NS250ML(*CRX 2,500 MCG/250 ML BAG 17.5 MCG IV CONT ×2 (04:30→17:21)
[2021-06-28 06:29] LABS: Alveolar/Arterial O2 Gradient 59.7 mmHg; Carboxyhemoglobin 0.2 % THb (0-2.0); Fractional Inspired Oxygen 35 %; HCO3 ABG 38.9 mEq/l (22.0-26.0); Methemoglobin ABG 0.2 %THb (0-1.5); Oxygen Content ABG 14.3 %vol (16.0-22.0); Oxygen Saturation ABG 96.1 % (95.0-100.0); PO2 ABG 94.9 mmHg (80.0-100.0); PO2 FiO2 Ratio Arterial Blood 2.71 %; Reduced Hemoglobin 4.6 %THb (0-5.0); Total Hemoglobin 10.6 g/dL (12.0-18.0)
[2021-06-28 06:30] LABS: pH ABG 7.296 (7.350-7.450)
[2021-06-28 06:31] LABS: Device VENTILATOR; Modified Allen's Test Unable to perform; PCO2 ABG 81.7 mmHg (35.0-45.0); Site Drawn RIGHT RADIAL
[2021-06-28 06:32] LABS: Arterial Blood Gas PEEP 5 cmH2O; Arterial Blood Gas Tidal Volume 340 ml; Arterial Blood Gas Vent Mode CMV; Arterial Blood Gas Ventilator rate 20 /MIN
[2021-06-28] MEDS: dexmedeTOMIDine 400 MCG/100 ML 400 MCG/100 ML BAG 9.28 MCG IV CONT ×2 (06:43→15:47)
[2021-06-28 06:44] LABS: Hematocrit 29.1 % (37.0-47.0); Hemoglobin 9.2 g/dL (12.0-15.0); Mean Corpuscular HGB Conc 31.6 g/dl (32-36); Mean Corpuscular Hemoglobin 32.1 pg (26-34); Mean Corpuscular Volume 101.4 fl (80-100); Mean Platelet Volume 11.5 fl (7.4-10.4); Platelet Count Result 195 k/mm3 (150-375); Red Blood Count 2.87 M/mm3 (4.2-5.4); Red Cell Distribution Width 12.1 % (11.5-14.5); White Blood Count 8.2 K/mm3 (4.5-10.0)
[2021-06-28] MEDS: CENTRAL LINE FLUSH 10 ML IV PUSH ×3 (06:46→21:58)
[2021-06-28 06:48] LABS: Alanine Aminotransferase 17 U/L (4-35); Albumin Level 3.1 g/dL (3.5-5.1); Alkaline Phosphatase 70 U/L (38-126); Anion Gap 3 mmol/L (8-16); Aspartate Amino Transferase 27 U/L (14-36); Bilirubin,Total < 0.1 mg/dL (0.2-1.3); Blood Urea Nitrogen 15 mg/dL (7-17); Calcium 7.9 mg/dL (8.4-10.2); Carbon Dioxide 37 mmol/L (22-30); Chloride 90 mmol/L (98-107); Estimated CRCL calculation 108 ml/min; Estimated Glomerular Filt Rate > 60; Glucose 222 mg/dL (65-110); Sodium 130 mmol/L (137-145)
--- NOTE | 2021-06-28 08:00 | WPDINTPN ---
Progress Note: A&P Assessment and Plan (1) Acute and chronic respiratory failure with hypercapnia: Code(s): J96.22 - Acute and chronic respiratory failure with hypercapnia Status: Acute Assessment and Plan: patient has a baseline severe COPD and on home oxygen presented with acute on chronic respiratory failure and failed BiPAP therapy in ER requiring intubation and mechanical ventilation ABG reviewed - patient has chronic hypercarbia and respiratory acidosis but ABG was slightly worse today. increase respiratory rate on ventilator to 22 chest x-ray reviewed continue daily prednisone continue bronchodilators continue Broad-spectrum antibiotics culture sent and negative for now COVID PCR was negative 3/4 failed her weaning trial due to desaturation, tachypnea and high RSBI. is she appeared in respiratory distress and was noding her head affirmative to feeling short of breath. I will try PSV weaning trial today 06/26/2020 CT C/A/P IMPRESSION: 1. Multiple bilateral pulmonary nodules without significant change from prior examination allowing for differences of technique. No significant change to bilateral pulmonary nodules. 2: Severe emphysema. 3: Pulmonary arterial hypertension. 4: No acute abdominal abnormality. (2) Acute exacerbation of chronic obstructive airways disease: Code(s): J44.1 - Chronic obstructive pulmonary disease with (acute) exacerbation Status: Acute Assessment and Plan: see above (3) GERD (gastroesophageal reflux disease): Qualifiers: Esophagitis presence: esophagitis presence not specified Qualified Code(s): K21.9 - Gastro-esophageal reflux disease without esophagitis Code(s): K21.9 - Gastro-esophageal reflux disease without esophagitis Status: Chronic Assessment and Plan: Continue PPI. (4) CHF (congestive heart failure): Code(s): I50.9 - Heart failure, unspecified Status: Acute Assessment and Plan: she has a BNP elevated but does not appear to be any significant volume overload she she received IV fluids due to low blood pressure diuretics on hold (5) Pulmonary hypertension: Code(s): I27.20 - Pulmonary hypertension, unspecified Status: Acute Assessment and Plan: secondary to COPD (6) Sinus tachycardia: Code(s): R00.0 - Tachycardia, unspecified Status: Acute Assessment and Plan: improved with IV fluid bolus and Precedex for sedation metoprolol had to be held due to low blood TSH is 0.311 which is lower than normal free T4 and T3 are normal (7) Constipation: Code(s): K59.00 - Constipation, unspecified Status: Acute Assessment and Plan: could scheduled MiraLax and p.r.n. Dulcolax suppository (8) Hypotension: Code(s): I95.9 - Hypotension, unspecified Status: Acute Assessment and Plan: patient blood pressure dropped intubation this likely from sedation she was given IV fluid and is off and on on low-dose Cole-Synephrine for blood pressure support depending on how sedated she currently off (9) Fever: Code(s): R50.9 - Fever, unspecified Status: Acute Assessment and Plan: patient febrile yesterday and overnight her WBCs normal and procalcitonin level is low UA was unremarkable for UTI CT chest abdomen pelvis reviewed blood and sputum cultures have been sent and are pending 3/4 change antibiotics to broad-spectrum vancomycin cefepime and azithromycin afebrile overnight (10) Hyperglycemia: Code(s): R73.9 - Hyperglycemia, unspecified Status: Acute Assessment and Plan: continue sliding scale insulin but add Lantus Additional Plan DVT prophylaxis - continue Eliquis Stress ulcer prophylaxis - continue PPI Nutrition - On tube feeds. Code Status - Full Code Total Critical Care Time - 30 minutes Due to a high probability of clinically significant, life threate
[2021-06-28] MEDS: MIDAZOLAM HCL (*CRX) 2 MG/2 ML VIAL 4 MG (08:15)
[2021-06-28] MEDS: PANTOPRAZOLE SODIUM IV 40 MG VIAL IV PUSH (08:26)
[2021-06-28] MEDS: polyethylene glycoL 3350 17 GM POWD.PACK FEED TUBE (08:26)
[2021-06-28] MEDS: predniSONE 20 MG TABLET 60 MG FEED TUBE (08:27)
[2021-06-28] MEDS: APIXABAN 5 MG TABLET PO ×2 (08:27→18:19)
[2021-06-28] MEDS: VENLAFAXINE HCL XR 75 MG CAP.ER.24H 150 MG PO (08:27)
[2021-06-28] MEDS: busPIRone HCL 10 MG TABLET PO ×2 (08:28→18:19)
[2021-06-28 08:33] LABS: Glucose Point of Care 180 mg/dl (65-105)
[2021-06-28] MEDS: INSULIN GLARGINE (*BKC) 100 UNITS/ML 10 UNITS SUB-Q (09:07)
--- NOTE | 2021-06-28 10:04 | PM.IMPN ---
Progress Note: A&P Assessment and Plan (1) Septic shock: Code(s): A41.9 - Sepsis, unspecified organism; R65.21 - Severe sepsis with septic shock Status: Acute Assessment and Plan: BP elevated on admission but dropped to 69/55 on 06/26/21. Could be related to the changes in her sedation but concern for septic shock since fevers occurring at the same time. Etiology would most likely be from her PNA/Tracheitis. CT Abd negative for acute pathology. Phenylephrine has been weaned off successfully on 06/27/21. Abx adjusted yesterday. (2) Acute and chronic respiratory failure with hypercapnia: Code(s): J96.22 - Acute and chronic respiratory failure with hypercapnia Status: Acute Assessment and Plan: Patient has baseline severe COPD on home oxygen. She presents with SOB and CXR showing PNA so started on abx. ABG 7. that worsened with BiPAP. She was intubated on 06/25/21. Now having fevers with HoTN. Started on Prednisone for possible COPD exacerbation. Continue mechanical ventilation. Wean as tolerated. Sedation medication being adjusted. Appreciate mysql database administrator input. (3) Pneumonia: Code(s): J18.9 - Pneumonia, unspecified organism Status: Acute Assessment and Plan: CXR showing patchy bilateral airspace disease, consistent with pneumonia. She is now having fevers and BP soft. HoTN could be related to sedation but concern for septic shock from PNA. CT scan showing multiple pulmonary nodules without change. No obvious pulmonary infiltratives noted. BCx NGTD. Sputum NGTD. MRSA nasal swab negative. Consider tracheitis. Abx adjusted yesterday and now on Cefepime, Vancomycin and Azithromycin. (4) Acute exacerbation of chronic obstructive airways disease: Code(s): J44.1 - Chronic obstructive pulmonary disease with (acute) exacerbation Status: Acute Assessment and Plan: COPD exacerbation contributing to her respiroatry failure. Continue Prednisone. As above (5) CHF (congestive heart failure): Code(s): I50.9 - Heart failure, unspecified Status: Acute Assessment and Plan: BNP 1999. CT showing pulmonary nodules but no evidence of pulmonary edema. Echo showing EF 55-60% with Grade I diastolic dysfunction. No pulmonary HTN (but pulmonary arteries enlarged by CT). She has HoTN and clinically does not appear to be fluid overloaded. Doubt she has CHF (6) History of pulmonary embolus (PE): Code(s): Z86.711 - Personal history of pulmonary embolism Status: Acute Assessment and Plan: Hgb down to 9.2 today. No evidence of acute blood loss. Continue Eliquis. Monitor closely. (7) GERD (gastroesophageal reflux disease): Qualifiers: Esophagitis presence: esophagitis presence not specified Qualified Code(s): K21.9 - Gastro-esophageal reflux disease without esophagitis Code(s): K21.9 - Gastro-esophageal reflux disease without esophagitis Status: Chronic Assessment and Plan: Continue Protonix (8) Tobacco dependence: Code(s): F17.200 - Nicotine dependence, unspecified, uncomplicated Status: Chronic Assessment and Plan: Patient will be educated about benefits of smoking cessation when able Subjective Date/time seen: 06/28/21 10:04 Interval history: 56yo female with chronic respiratory failure, COPD, JONATHAN and on going tobacco use here for SOB. No issues overnight. Breathing trial being attempted again today. She is off Versed but on Fentanyl 100 and Precedex 0.8. She develops sinus tachycardia when they attempt to wean sedation Exam Narrative: Tm 100.7 98.0 107/81 95 25 99% MV Gen - thin female intubated and sedated HEENT - ETT and OGT secured Chest - lungs mildly coarse anteriorly. CV - RRR S1/S2. Tele showing occasional episodes of sinus tachycardia. Abd - firm, mildly tympanitic but not distended. +BS - Boss secured draining clear yellow urine Ext - No pedal edema Ne
--- NOTE | 2021-06-28 10:16 | PC.NURSE ---
Per report, Phenylephrine was discontinued 06/27/21. Noted that it was not paused in MAR, and paused accordingly to reported discontinued time.
[2021-06-28] MEDS: LORazepam INJ (*CRX) 2 MG/ML VIAL IV PUSH ×2 (11:49→20:13)
[2021-06-28 12:16] LABS: Glucose Point of Care 90 mg/dl (65-105)
[2021-06-28 12:16] LABS: Glucose Point of Care 166 mg/dl (65-105)
[2021-06-28 15:58] LABS: Glucose Point of Care 171 mg/dl (65-105)
[2021-06-28 20:35] LABS: Glucose Point of Care 183 mg/dl (65-105)
[2021-06-28] MEDS: INSULIN ASPART (*BKC) 100 UNITS/ML SUB-Q (23:14)
[2021-06-28 23:22] LABS: Glucose Point of Care 256 mg/dl (65-105)
[2021-06-29] VITALS (38 sets, daily range): BP systolic 85–136; BP diastolic 59–125; PULSE 57–140; RESP 18–28; TEMP 36.5–37.6; O2SAT 92–97
[2021-06-29] MEDS: dexmedeTOMIDine 400 MCG/100 ML 400 MCG/100 ML BAG 9.28 MCG IV CONT ×3 (00:48→19:23)
[2021-06-29 05:11] LABS: Glucose Point of Care 145 mg/dl (65-105)
[2021-06-29 05:13] LABS: Hematocrit 30.3 % (37.0-47.0); Hemoglobin 9.3 g/dL (12.0-15.0); Mean Corpuscular HGB Conc 30.7 g/dl (32-36); Mean Corpuscular Hemoglobin 31.6 pg (26-34); Mean Corpuscular Volume 103.1 fl (80-100); Mean Platelet Volume 11.3 fl (7.4-10.4); Platelet Count Result 206 k/mm3 (150-375); Red Blood Count 2.94 M/mm3 (4.2-5.4); Red Cell Distribution Width 12.1 % (11.5-14.5); White Blood Count 7.6 K/mm3 (4.5-10.0)
[2021-06-29] MEDS: LORazepam INJ (*CRX) 2 MG/ML VIAL IV PUSH ×5 (05:16→21:57)
[2021-06-29] MEDS: CENTRAL LINE FLUSH 10 ML IV PUSH ×3 (05:26→20:50)
[2021-06-29 05:36] LABS: Alanine Aminotransferase 22 U/L (4-35); Albumin Level 3.1 g/dL (3.5-5.1); Alkaline Phosphatase 69 U/L (38-126); Aspartate Amino Transferase 33 U/L (14-36); Bilirubin,Total 0.1 mg/dL (0.2-1.3); Blood Urea Nitrogen 17 mg/dL (7-17); Calcium 8.4 mg/dL (8.4-10.2); Carbon Dioxide > 40 mmol/L (22-30); Chloride 90 mmol/L (98-107); Estimated CRCL calculation 111 ml/min; Estimated Glomerular Filt Rate > 60; Glucose 127 mg/dL (65-110); Magnesium 1.8 mg/dL (1.6-2.3); Potassium 4.4 mmol/L (3.4-5.0); Sodium 132 mmol/L (137-145)
[2021-06-29 05:52] LABS: Alveolar/Arterial O2 Gradient 61.7 mmHg; Base Excess ABG 7.9 mEq/l (+/-2.0); Carboxyhemoglobin 0.3 % THb (0-2.0); Fractional Inspired Oxygen 35 %; HCO3 ABG 36.2 mEq/l (22.0-26.0); Methemoglobin ABG 0.3 %THb (0-1.5); Oxygen Content ABG 14.2 %vol (16.0-22.0); Oxygen Saturation ABG 96.7 % (95.0-100.0); Oxyhemoglobin 95.8 % THb (90.0-100.0); PO2 ABG 100.7 mmHg (80.0-100.0); PO2 FiO2 Ratio Arterial Blood 2.88 %; Reduced Hemoglobin 3.6 %THb (0-5.0); Total Hemoglobin 10.4 g/dL (12.0-18.0); pH ABG 7.302 (7.350-7.450)
[2021-06-29 05:55] LABS: Device VENTILATOR; Modified Allen's Test Pass; Site Drawn RIGHT RADIAL
[2021-06-29 05:56] LABS: Arterial Blood Gas PEEP 5 cmH2O; Arterial Blood Gas Tidal Volume 340 ml; Arterial Blood Gas Vent Mode CMV; Arterial Blood Gas Ventilator rate 22 /MIN
--- NOTE | 2021-06-29 07:52 | PM.IMPN ---
Progress Note: A&P Assessment and Plan (1) Septic shock: Code(s): A41.9 - Sepsis, unspecified organism; R65.21 - Severe sepsis with septic shock Status: Acute Assessment and Plan: BP elevated on admission but dropped to 69/55 on 06/26/21. Could be related to the changes in her sedation but concern for septic shock since fevers occurring at the same time. BCx NGTD. Sputum negative. MRSA nasal swab negative. CT Abd/Pelvis negative for acute pathology. Etiology would most likely be from her PNA/Tracheitis. Phenylephrine has been weaned off successfully on 06/27/21. BP still soft. Abx adjusted 06/27. Continue to monitor. (2) Acute and chronic respiratory failure with hypercapnia: Code(s): J96.22 - Acute and chronic respiratory failure with hypercapnia Status: Acute Assessment and Plan: Patient has baseline severe COPD on home oxygen. She presents with SOB and CXR showing PNA so started on abx. ABG 7.29/83/85 that worsened with BiPAP thus required intubation on 06/25/21. Started on Abx for possible PNA and Prednisone for possible COPD exacerbation. Continue mechanical ventilation. Wean as tolerated. Sedation medication being adjusted. Appreciate lawn care specialist input. (3) Pneumonia: Code(s): J18.9 - Pneumonia, unspecified organism Status: Acute Assessment and Plan: CXR showing patchy bilateral airspace disease, consistent with pneumonia and she was having fevers and BP soft. HoTN could be related to sedation but concern for septic shock from PNA. CT chest scan showing multiple pulmonary nodules without change. No obvious pulmonary infiltratives noted. BCx NGTD. Sputum negative. MRSA nasal swab negative. Consider bronchitis/tracheitis. Abx adjusted and now on Cefepime, Vancomycin and Azithromycin. Continue the same (4) Acute exacerbation of chronic obstructive airways disease: Code(s): J44.1 - Chronic obstructive pulmonary disease with (acute) exacerbation Status: Acute Assessment and Plan: COPD exacerbation contributing to her respiroatry failure. Continue Prednisone. As above (5) CHF (congestive heart failure): Code(s): I50.9 - Heart failure, unspecified Status: Acute Assessment and Plan: BNP 2000. CT showing pulmonary nodules but no evidence of pulmonary edema. Echo showing EF 55-60% with Grade I diastolic dysfunction. No pulmonary HTN (but pulmonary arteries enlarged by CT). She has HoTN and clinically does not appear to be fluid overloaded. Doubt she has CHF (6) History of pulmonary embolus (PE): Code(s): Z86.711 - Personal history of pulmonary embolism Status: Acute Assessment and Plan: Hgb down to 9 range but stable. No evidence of acute blood loss. Continue Eliquis. Monitor closely. (7) GERD (gastroesophageal reflux disease): Qualifiers: Esophagitis presence: esophagitis presence not specified Qualified Code(s): K21.9 - Gastro-esophageal reflux disease without esophagitis Code(s): K21.9 - Gastro-esophageal reflux disease without esophagitis Status: Chronic Assessment and Plan: Stable. Continue Protonix (8) Tobacco dependence: Code(s): F17.200 - Nicotine dependence, unspecified, uncomplicated Status: Chronic Assessment and Plan: Patient will be educated about benefits of smoking cessation when able Subjective Date/time seen: 06/29/21 07:52 Interval history: 56yo female with chronic respiratory failure, COPD, JONATHAN and on going tobacco use here for SOB. No issues overnight. More agitated this morning and received Ativan. She remains on fentanyl 50 and Precedex 0.8. Tolerating tube feedings. Minimal secretions. Passing flatus. No bowel movements. Review of Systems Review of Systems: ROS unobtainable: Yes unobtainable due to endotracheal tube and unobtainable due to mental status Exam Narrative: AF 99.5 85/59 68 22 95% MV Gen - thin female intub
[2021-06-29] MEDS: PANTOPRAZOLE SODIUM IV 40 MG VIAL IV PUSH (08:06)
[2021-06-29] MEDS: predniSONE 20 MG TABLET 60 MG FEED TUBE (08:06)
[2021-06-29] MEDS: polyethylene glycoL 3350 17 GM POWD.PACK FEED TUBE (08:07)
[2021-06-29] MEDS: busPIRone HCL 10 MG TABLET PO ×2 (08:07→16:24)
[2021-06-29] MEDS: APIXABAN 5 MG TABLET PO ×2 (08:07→16:24)
[2021-06-29] MEDS: VENLAFAXINE HCL XR 75 MG CAP.ER.24H 150 MG PO (08:07)
[2021-06-29] MEDS: INSULIN GLARGINE (*BKC) 100 UNITS/ML 10 UNITS SUB-Q (08:08)
[2021-06-29 08:12] LABS: Glucose Point of Care 140 mg/dl (65-105)
--- NOTE | 2021-06-29 08:24 | WPDINTPN ---
Progress Note: A&P Assessment and Plan (1) Acute and chronic respiratory failure with hypercapnia: Code(s): J96.22 - Acute and chronic respiratory failure with hypercapnia Status: Acute Assessment and Plan: patient has a baseline severe COPD and on home oxygen presented with acute on chronic respiratory failure and failed BiPAP therapy in ER requiring intubation and mechanical ventilation ABG reviewed - patient has chronic hypercarbia and respiratory acidosis but ABG was slightly worse today. continue current vent settings chest x-ray reviewed continue daily prednisone continue bronchodilators continue Broad-spectrum antibiotics culture sent and negative for now COVID PCR was negative 06/27 failed her weaning trial due to desaturation, tachypnea and high RSBI. is she appeared in respiratory distress and was noding her head affirmative to feeling short of breath. 06/28 patient did not meet criteria for PSV due to agitation tachypnea and desaturation on holding her sedatives 06/29 will try PSV weaning trial again today 06/26/2020 CT C/A/P IMPRESSION: 1. Multiple bilateral pulmonary nodules without significant change from prior examination allowing for differences of technique. No significant change to bilateral pulmonary nodules. 2: Severe emphysema. 3: Pulmonary arterial hypertension. 4: No acute abdominal abnormality. (2) Acute exacerbation of chronic obstructive airways disease: Code(s): J44.1 - Chronic obstructive pulmonary disease with (acute) exacerbation Status: Acute Assessment and Plan: see above (3) GERD (gastroesophageal reflux disease): Qualifiers: Esophagitis presence: esophagitis presence not specified Qualified Code(s): K21.9 - Gastro-esophageal reflux disease without esophagitis Code(s): K21.9 - Gastro-esophageal reflux disease without esophagitis Status: Chronic Assessment and Plan: Continue PPI. (4) CHF (congestive heart failure): Code(s): I50.9 - Heart failure, unspecified Status: Acute Assessment and Plan: she has a BNP elevated but does not appear to be any significant volume overload she she received IV fluids due to low blood pressure diuretics on hold (5) Pulmonary hypertension: Code(s): I27.20 - Pulmonary hypertension, unspecified Status: Acute Assessment and Plan: secondary to COPD (6) Sinus tachycardia: Code(s): R00.0 - Tachycardia, unspecified Status: Acute Assessment and Plan: improved with IV fluid bolus and Precedex for sedation metoprolol had to be held due to low blood TSH is 0.311 which is lower than normal free T4 and T3 are normal (7) Constipation: Code(s): K59.00 - Constipation, unspecified Status: Acute Assessment and Plan: continue scheduled MiraLax and Dulcolax suppository (8) Hypotension: Code(s): I95.9 - Hypotension, unspecified Status: Acute Assessment and Plan: patient blood pressure dropped intubation this likely from sedation she was given IV fluid and is off and on on low-dose Cole-Synephrine for blood pressure support depending on how sedated she currently off of Cole-Synephrine (9) Fever: Code(s): R50.9 - Fever, unspecified Status: Acute Assessment and Plan: patient febrile earlier in the course her WBCs normal and procalcitonin level is low UA was unremarkable for UTI CT chest abdomen pelvis reviewed blood and sputum cultures have been sent and are NTD 3/4 changed antibiotics to broad-spectrum vancomycin cefepime and azithromycin afebrile now (10) Hyperglycemia: Code(s): R73.9 - Hyperglycemia, unspecified Status: Acute Assessment and Plan: continue sliding scale insulin and Lantus Additional Plan DVT prophylaxis - continue Eliquis Stress ulcer prophylaxis - continue PPI Nutrition - On tube feeds. Code Status - Full Code
[2021-06-29] MEDS: BISACODYL 10 MG SUPPOSITORY RECTAL (08:51)
[2021-06-29 11:42] LABS: Glucose Point of Care 151 mg/dl (65-105)
[2021-06-29] MEDS: FENTANYL 2,500MCG/NS250ML(*CRX 2,500 MCG/250 ML BAG 12.5 MCG IV CONT (12:26)
[2021-06-29 15:33] LABS: Vancomycin Trough 5.2 ug/mL (10.0-20.0)
[2021-06-29 16:31] LABS: Glucose Point of Care 176 mg/dl (65-105)
[2021-06-29 19:50] LABS: Glucose Point of Care 210 mg/dl (65-105)
[2021-06-29] MEDS: INSULIN ASPART (*BKC) 100 UNITS/ML SUB-Q (19:52)
[2021-06-29 22:35] LABS: Pneumococcal Antigen Urine Not Detected (Not Detected)
[2021-06-29 23:14] LABS: Glucose Point of Care 158 mg/dl (65-105)
[2021-06-30] VITALS (26 sets, daily range): BP systolic 86–143; BP diastolic 56–101; PULSE 60–122; RESP 19–30; TEMP 37.1–37.5; O2SAT 92–100
[2021-06-30 03:45] LABS: Glucose Point of Care 141 mg/dl (65-105)
[2021-06-30] MEDS: dexmedeTOMIDine 400 MCG/100 ML 400 MCG/100 ML BAG 9.28 MCG IV CONT ×2 (04:40→14:46)
[2021-06-30] MEDS: CENTRAL LINE FLUSH 10 ML IV PUSH ×2 (04:56→21:05)
[2021-06-30 05:00] LABS: Hematocrit 28.5 % (37.0-47.0); Hemoglobin 8.8 g/dL (12.0-15.0); Mean Corpuscular HGB Conc 30.9 g/dl (32-36); Mean Corpuscular Hemoglobin 31.5 pg (26-34); Mean Corpuscular Volume 102.2 fl (80-100); Mean Platelet Volume 11.5 fl (7.4-10.4); Platelet Count Result 187 k/mm3 (150-375); Red Blood Count 2.79 M/mm3 (4.2-5.4); Red Cell Distribution Width 12.2 % (11.5-14.5); White Blood Count 7.8 K/mm3 (4.5-10.0)
[2021-06-30 05:14] LABS: Alanine Aminotransferase 32 U/L (4-35); Albumin Level 2.8 g/dL (3.5-5.1); Alkaline Phosphatase 63 U/L (38-126); Aspartate Amino Transferase 37 U/L (14-36); Bilirubin,Total 0.2 mg/dL (0.2-1.3); Blood Urea Nitrogen 17 mg/dL (7-17); Calcium 8.1 mg/dL (8.4-10.2); Carbon Dioxide > 40 mmol/L (22-30); Chloride 85 mmol/L (98-107); Estimated CRCL calculation 145 ml/min; Estimated Glomerular Filt Rate > 60; Glucose 189 mg/dL (65-110); Magnesium 1.9 mg/dL (1.6-2.3); Potassium 4.1 mmol/L (3.4-5.0); Sodium 129 mmol/L (137-145)
[2021-06-30 05:52] LABS: Alveolar/Arterial O2 Gradient 64.7 mmHg; Base Excess ABG 16.7 mEq/l (+/-2.0); Fractional Inspired Oxygen 35 %; HCO3 ABG 44.7 mEq/l (22.0-26.0); Oxygen Content ABG 14.5 %vol (16.0-22.0); Oxygen Saturation ABG 96.9 % (95.0-100.0); Oxyhemoglobin 96.2 % THb (90.0-100.0); PO2 ABG 96.4 mmHg (80.0-100.0); PO2 FiO2 Ratio Arterial Blood 2.75 %; Total Hemoglobin 10.6 g/dL (12.0-18.0); pH ABG 7.387 (7.350-7.450)
[2021-06-30 05:57] LABS: Device VENTILATOR; Modified Allen's Test Pass; PCO2 ABG 76.1 mmHg (35.0-45.0); Site Drawn RIGHT RADIAL
[2021-06-30 05:58] LABS: Arterial Blood Gas PEEP 5 cmH2O; Arterial Blood Gas Tidal Volume 340 ml; Arterial Blood Gas Vent Mode CMV; Arterial Blood Gas Ventilator rate 22 /MIN
[2021-06-30] MEDS: LORazepam INJ (*CRX) 2 MG/ML VIAL IV PUSH ×3 (07:45→20:08)
[2021-06-30] MEDS: MIDAZOLAM HCL (*CRX) 2 MG/2 ML VIAL IV PUSH (07:51)
[2021-06-30 08:10] LABS: Glucose Point of Care 147 mg/dl (65-105)
[2021-06-30] MEDS: PANTOPRAZOLE SODIUM IV 40 MG VIAL IV PUSH ×2 (08:18→19:50)
[2021-06-30] MEDS: VENLAFAXINE HCL XR 75 MG CAP.ER.24H 150 MG PO (08:18)
[2021-06-30] MEDS: predniSONE 20 MG TABLET 60 MG FEED TUBE (08:19)
[2021-06-30] MEDS: APIXABAN 5 MG TABLET PO ×2 (08:19→16:59)
[2021-06-30] MEDS: busPIRone HCL 10 MG TABLET PO ×2 (08:19→16:59)
[2021-06-30] MEDS: INSULIN GLARGINE (*BKC) 100 UNITS/ML 10 UNITS SUB-Q (08:19)
--- NOTE | 2021-06-30 08:22 | WPDINTPN ---
Progress Note: A&P Assessment and Plan (1) Acute and chronic respiratory failure with hypercapnia: Code(s): J96.22 - Acute and chronic respiratory failure with hypercapnia Status: Acute Assessment and Plan: patient has a baseline severe COPD and on home oxygen presented with acute on chronic respiratory failure and failed BiPAP therapy in ER requiring intubation and mechanical ventilation ABG reviewed - patient has chronic hypercarbia and respiratory acidosis but ABG was slightly worse today. continue current vent settings chest x-ray reviewed continue steroids were changed to IV and increase dose as patient continues to have some wheezing despite being on prednisone continue bronchodilators continue Broad-spectrum antibiotics culture sent and negative for now COVID PCR was negative 06/27 failed her weaning trial due to desaturation, tachypnea and high RSBI. is she appeared in respiratory distress and was noding her head affirmative to feeling short of breath. 06/28 patient did not meet criteria for PSV due to agitation tachypnea and desaturation on holding her sedatives 06/29 will try PSV weaning trial again today 06/30 On lowering sedation this morning patient agitated, tachypneic tachycardic and appeared in obvious respiratory distress. not a candidate for weaning trial this time 06/26/2020 CT C/A/P IMPRESSION: 1. Multiple bilateral pulmonary nodules without significant change from prior examination allowing for differences of technique. No significant change to bilateral pulmonary nodules. 2: Severe emphysema. 3: Pulmonary arterial hypertension. 4: No acute abdominal abnormality. (2) Acute exacerbation of chronic obstructive airways disease: Code(s): J44.1 - Chronic obstructive pulmonary disease with (acute) exacerbation Status: Acute Assessment and Plan: see above (3) GERD (gastroesophageal reflux disease): Qualifiers: Esophagitis presence: esophagitis presence not specified Qualified Code(s): K21.9 - Gastro-esophageal reflux disease without esophagitis Code(s): K21.9 - Gastro-esophageal reflux disease without esophagitis Status: Chronic Assessment and Plan: Continue PPI. (4) CHF (congestive heart failure): Code(s): I50.9 - Heart failure, unspecified Status: Acute Assessment and Plan: she has a BNP elevated but does not appear to be any significant volume overload she she received IV fluids due to low blood pressure diuretics on hold (5) Pulmonary hypertension: Code(s): I27.20 - Pulmonary hypertension, unspecified Status: Acute Assessment and Plan: secondary to COPD (6) Sinus tachycardia: Code(s): R00.0 - Tachycardia, unspecified Status: Acute Assessment and Plan: improved with IV fluid bolus and Precedex for sedation metoprolol had to be held due to low blood TSH is 0.311 which is lower than normal free T4 and T3 are normal (7) Constipation: Code(s): K59.00 - Constipation, unspecified Status: Acute Assessment and Plan: continue scheduled MiraLax and Dulcolax suppository (8) Hypotension: Code(s): I95.9 - Hypotension, unspecified Status: Acute Assessment and Plan: patient blood pressure dropped intubation this likely from sedation she was given IV fluid and is off and on on low-dose Cole-Synephrine for blood pressure support depending on how sedated she currently off of Cole-Synephrine (9) Fever: Code(s): R50.9 - Fever, unspecified Status: Acute Assessment and Plan: patient febrile earlier in the course her WBCs normal and procalcitonin level is low UA was unremarkable for UTI CT chest abdomen pelvis reviewed blood and sputum cultures have been sent and are NTD 3/4 changed antibiotics to broad-spectrum vancomycin cefepime and azithromycin afebrile now (10) Hyperglycemia: Code(s): R73.9 - Hyperg
[2021-06-30] MEDS: BISACODYL 10 MG SUPPOSITORY RECTAL (09:08)
[2021-06-30] MEDS: polyethylene glycoL 3350 17 GM POWD.PACK FEED TUBE (09:08)
[2021-06-30] MEDS: FENTANYL 2,500MCG/NS250ML(*CRX 2,500 MCG/250 ML BAG 15 MCG IV CONT (11:11)
[2021-06-30] MEDS: methylPREDNISolone SOD SUCC 125 MG VIAL 60 MG IV PUSH ×2 (11:12→17:02)
--- NOTE | 2021-06-30 11:47 | PCFNICU ---
ICU Rounding Note: Pt current nutrition is Vital AF 1.2 at 55 ml/hr over 22 hours. Last recorded weight is 55.9 kg, up from 46.4 kg on admit. Bowel Motility:+BM reported 3/6 Labs Reviewed:Glu 189, Na 129, Alb 2.8,Hct 28.5,Hgb 8.8 Meds Noted: Maxipime, Buspar, Eliquis, Ditropan, Miralax, Dulcolax Suppository, Solu Medrol, Vancomycin, Ativan, Versed, Vancomycin Skin: WNL Additional Notes: Patient remains on a mechanical vent and tube feedings of Vital AF 1.2 at 1.2 at 55 ml/hr over 22 hours. Failed breathing trial over the weekend. Current tube feeding is providing 1452 kcals/91 gms protein/981 ml water. Flush increased to 50 ml q 4 hours from 30 ml, Na 129 today. Agree with diet orders. Following daily in ICU rounds. Will reassessing every Wednesday and Wednesday.
[2021-06-30] MEDS: INSULIN ASPART (*BKC) 100 UNITS/ML SUB-Q ×2 (12:02→16:58)
[2021-06-30 12:07] LABS: Glucose Point of Care 209 mg/dl (65-105)
--- NOTE | 2021-06-30 13:32 | PM.IMPN ---
Progress Note: A&P Assessment and Plan (1) Septic shock: Code(s): A41.9 - Sepsis, unspecified organism; R65.21 - Severe sepsis with septic shock Status: Acute Assessment and Plan: BP elevated on admission but dropped to 69/55 on 06/26/21. Could be related to the changes in her sedation but concern for septic shock since fevers occurring at the same time. BCx NGTD. Sputum negative. MRSA nasal swab negative. CT Abd/Pelvis negative for acute pathology. Etiology would most likely be from her PNA/Tracheitis. Phenylephrine has been weaned off successfully on 06/27/21. BP still soft. Abx adjusted 06/27 and symptoms have improved with this change. Continue to monitor. (2) Acute and chronic respiratory failure with hypercapnia: Code(s): J96.22 - Acute and chronic respiratory failure with hypercapnia Status: Acute Assessment and Plan: Patient has baseline severe COPD on home oxygen. She presents with SOB and CXR showing possible PNA. ABG 7.29/83/85 that worsened with BiPAP thus required intubation on 06/25/21. Started on Abx for possible PNA and steroids for possible COPD exacerbation. Continue mechanical ventilation. Wean as tolerated. Sedation medication being adjusted. Appreciate vessel slagman input. Consider Lasix given the positive fluid balance. (3) Pneumonia: Code(s): J18.9 - Pneumonia, unspecified organism Status: Acute Assessment and Plan: CXR showing patchy bilateral airspace disease, consistent with pneumonia and she was having fevers and BP soft. HoTN could be related to sedation but concern for septic shock from PNA. CT chest scan showing multiple pulmonary nodules without change. No obvious pulmonary infiltratives noted. BCx NGTD. Sputum negative. MRSA nasal swab negative. Consider bronchitis/tracheitis. Abx adjusted and now on Cefepime, Vancomycin and Azithromycin. Continue the same (4) Acute exacerbation of chronic obstructive airways disease: Code(s): J44.1 - Chronic obstructive pulmonary disease with (acute) exacerbation Status: Acute Assessment and Plan: COPD exacerbation contributing to her respiratory failure. Switched to Solu-Medrol. Continue steroids. As above (5) CHF (congestive heart failure): Code(s): I50.9 - Heart failure, unspecified Status: Acute Assessment and Plan: BNP 1999. CT showing pulmonary nodules but no evidence of pulmonary edema. Echo showing EF 55-60% with Grade I diastolic dysfunction. No pulmonary HTN (but pulmonary arteries enlarged by CT). She has HoTN and clinically does not appear to be fluid overloaded. Doubt she has CHF (6) History of pulmonary embolus (PE): Code(s): Z86.711 - Personal history of pulmonary embolism Status: Acute Assessment and Plan: Hgb down to 8-9 range and dropping slowly. No evidence of acute blood loss. Related to excesive fluids (cumulative I/O +5.8L)? Gastritis? Continue Eliquis. Monitor closely. Check iron studies. Increase Protonix to BID (7) GERD (gastroesophageal reflux disease): Qualifiers: Esophagitis presence: esophagitis presence not specified Qualified Code(s): K21.9 - Gastro-esophageal reflux disease without esophagitis Code(s): K21.9 - Gastro-esophageal reflux disease without esophagitis Status: Chronic Assessment and Plan: Stable. Continue Protonix (8) Tobacco dependence: Code(s): F17.200 - Nicotine dependence, unspecified, uncomplicated Status: Chronic Assessment and Plan: Patient will be educated about benefits of smoking cessation when able Subjective Date/time seen: 06/30/21 13:32 Interval history: 56yo female with chronic respiratory failure, COPD, JONATHAN and on going tobacco use here for SOB. No issues overnight per RN. Toelrating TF. Same vent settings. Remains on Fentanyl and Precedex. Becomes tachycardia when agitated. Review of Systems Review of Systems: ROS unobtainable:
[2021-06-30 16:48] LABS: Glucose Point of Care 227 mg/dl (65-105)
[2021-06-30 19:20] LABS: Glucose Point of Care 157 mg/dl (65-105)
[2021-06-30] MEDS: IPRATROPIUM BR 0.02% INH SOLN 0.5 MG/2.5 ML VIAL INHALATION (23:41)
[2021-06-30] MEDS: ALBUTEROL SULFATE NEB 2.5 MG/0.5 ML INH INHALATION (23:41)
[2021-07-01] VITALS (35 sets, daily range): BP systolic 82–141; BP diastolic 65–92; PULSE 60–124; RESP 17–88; TEMP 36.7–37.7; O2SAT 87–100
[2021-07-01] MEDS: dexmedeTOMIDine 400 MCG/100 ML 400 MCG/100 ML BAG 9.28 MCG IV CONT (00:25)
[2021-07-01] MEDS: methylPREDNISolone SOD SUCC 125 MG VIAL 60 MG IV PUSH ×2 (00:30→05:23)
[2021-07-01] MEDS: INSULIN ASPART (*BKC) 100 UNITS/ML SUB-Q ×3 (00:37→08:17)
[2021-07-01 00:49] LABS: Glucose Point of Care 205 mg/dl (65-105)
[2021-07-01] MEDS: FENTANYL 2,500MCG/NS250ML(*CRX 2,500 MCG/250 ML BAG 15 MCG IV CONT (04:02)
[2021-07-01 04:07] LABS: Glucose Point of Care 229 mg/dl (65-105)
[2021-07-01 04:10] LABS: Hematocrit 31.3 % (37.0-47.0); Hemoglobin 9.7 g/dL (12.0-15.0); Mean Corpuscular Hemoglobin 31.2 pg (26-34); Mean Corpuscular Volume 100.6 fl (80-100); Mean Platelet Volume 11.4 fl (7.4-10.4); Platelet Count Result 194 k/mm3 (150-375); Red Blood Count 3.11 M/mm3 (4.2-5.4); Red Cell Distribution Width 12.2 % (11.5-14.5); White Blood Count 8.4 K/mm3 (4.5-10.0)
[2021-07-01 04:27] LABS: Alanine Aminotransferase 30 U/L (4-35); Alkaline Phosphatase 70 U/L (38-126); Aspartate Amino Transferase 28 U/L (14-36); Bilirubin,Total 0.2 mg/dL (0.2-1.3); Blood Urea Nitrogen 22 mg/dL (7-17); Calcium 8.2 mg/dL (8.4-10.2); Carbon Dioxide > 40 mmol/L (22-30); Chloride 85 mmol/L (98-107); Estimated CRCL calculation 145 ml/min; Estimated Glomerular Filt Rate > 60; Glucose 276 mg/dL (65-110); Potassium 4.5 mmol/L (3.4-5.0); Sodium 127 mmol/L (137-145)
[2021-07-01 04:36] LABS: Iron 30 ug/dL (37-170)
[2021-07-01 04:42] LABS: Vancomycin Trough 7.7 ug/mL (10.0-20.0)
[2021-07-01 04:45] LABS: Percent Iron Saturation 10 % (20-50)
[2021-07-01] MEDS: LORazepam INJ (*CRX) 2 MG/ML VIAL IV PUSH ×2 (04:51→20:20)
[2021-07-01] MEDS: IPRATROPIUM BR 0.02% INH SOLN 0.5 MG/2.5 ML VIAL INHALATION (05:17)
[2021-07-01] MEDS: ALBUTEROL SULFATE NEB 2.5 MG/0.5 ML INH INHALATION (05:17)
[2021-07-01] MEDS: CENTRAL LINE FLUSH 10 ML IV PUSH ×3 (05:24→22:24)
[2021-07-01 05:27] LABS: Folic Acid 8.3 ng/mL (2.76->20)
[2021-07-01] MEDS: MIDAZOLAM HCL (*CRX) 2 MG/2 ML VIAL 4 MG IV PUSH (06:03)
[2021-07-01 06:11] LABS: Alveolar/Arterial O2 Gradient 116.2 mmHg; Base Excess ABG 9.8 mEq/l (+/-2.0); HCO3 ABG 33.4 mEq/l (22.0-26.0); Oxygen Content ABG 14.3 %vol (16.0-22.0); Oxygen Saturation ABG 99.2 % (95.0-100.0); Oxyhemoglobin 97.7 % THb (90.0-100.0); PCO2 ABG 41.6 mmHg (35.0-45.0); PO2 ABG 157.3 mmHg (80.0-100.0); Total Hemoglobin 10.2 g/dL (12.0-18.0)
[2021-07-01 06:15] LABS: Device VENTILATOR; Modified Allen's Test Pass; Site Drawn LEFT BRACHIAL; pH ABG 7.523 (7.350-7.450)
[2021-07-01 06:16] LABS: Arterial Blood Gas PEEP 5 cmH2O; Arterial Blood Gas Tidal Volume 340 ml; Arterial Blood Gas Vent Mode CMV; Arterial Blood Gas Ventilator rate 22 /MIN
[2021-07-01 06:17] LABS: Fractional Inspired Oxygen 35 %
[2021-07-01 07:18] LABS: Glucose Point of Care 238 mg/dl (65-105)
[2021-07-01] MEDS: INSULIN GLARGINE (*BKC) 100 UNITS/ML 14 UNITS SUB-Q (08:16)
[2021-07-01] MEDS: PANTOPRAZOLE SODIUM IV 40 MG VIAL IV PUSH ×2 (08:16→20:20)
[2021-07-01] MEDS: APIXABAN 5 MG TABLET PO ×2 (08:18→18:21)
[2021-07-01] MEDS: busPIRone HCL 10 MG TABLET PO ×2 (08:18→18:21)
[2021-07-01] MEDS: BISACODYL 10 MG SUPPOSITORY RECTAL (08:37)
[2021-07-01] MEDS: polyethylene glycoL 3350 17 GM POWD.PACK FEED TUBE (08:38)
--- NOTE | 2021-07-01 08:48 | WPDINTPN ---
Progress Note: A&P Assessment and Plan (1) Acute and chronic respiratory failure with hypercapnia: Code(s): J96.22 - Acute and chronic respiratory failure with hypercapnia Status: Acute Assessment and Plan: Patient has a baseline severe COPD and on home oxygen -presented with acute on chronic respiratory failure and failed BiPAP therapy in ER requiring intubation and mechanical ventilation -intubated 06/25/2021 -Chest x-ray and ABGs reviewed, patient in respiratory alkalosis, decreased respiratory rate to 22 -continue Solu-Medrol 60 IV q.day -continue bronchodilators - continue vancomycin and cefepime (07/01), as patient was febrile -06/26/2021: Sputum and blood culture negative - COVID PCR was negative on admission 06/27 failed her weaning trial due to desaturation, tachypnea and high RSBI. is she appeared in respiratory distress and was noding her head affirmative to feeling short of breath. 06/28 patient did not meet criteria for PSV due to agitation tachypnea and desaturation on holding her sedatives 06/29 will try PSV weaning trial again today 06/30 On lowering sedation this morning patient agitated, tachypneic tachycardic and appeared in obvious respiratory distress. not a candidate for weaning trial this time Increase Precedex and wean fentanyl, maintain RASS of 0 and evaluate patient on SBT 06/26/2020 CT C/A/P IMPRESSION: 1. Multiple bilateral pulmonary nodules without significant change from prior examination allowing for differences of technique. No significant change to bilateral pulmonary nodules. 2: Severe emphysema. 3: Pulmonary arterial hypertension. 4: No acute abdominal abnormality. (2) Acute exacerbation of chronic obstructive airways disease: Code(s): J44.1 - Chronic obstructive pulmonary disease with (acute) exacerbation Status: Acute Assessment and Plan: see above (3) GERD (gastroesophageal reflux disease): Qualifiers: Esophagitis presence: esophagitis presence not specified Qualified Code(s): K21.9 - Gastro-esophageal reflux disease without esophagitis Code(s): K21.9 - Gastro-esophageal reflux disease without esophagitis Status: Chronic Assessment and Plan: Continue PPI. (4) CHF (congestive heart failure): Code(s): I50.9 - Heart failure, unspecified Status: Acute Assessment and Plan: she has a BNP elevated but does not appear to be any significant volume overload she she received IV fluids due to low blood pressure diuretics on hold (5) Pulmonary hypertension: Code(s): I27.20 - Pulmonary hypertension, unspecified Status: Acute Assessment and Plan: secondary to COPD (6) Sinus tachycardia: Code(s): R00.0 - Tachycardia, unspecified Status: Acute Assessment and Plan: improved with IV fluid bolus and Precedex for sedation metoprolol had to be held due to low blood TSH is 0.311 which is lower than normal free T4 and T3 are normal (7) Constipation: Code(s): K59.00 - Constipation, unspecified Status: Acute Assessment and Plan: continue scheduled MiraLax and Dulcolax suppository -will add docusate (8) Hypotension: Code(s): I95.9 - Hypotension, unspecified Status: Acute Assessment and Plan: patient blood pressure dropped intubation this likely from sedation she was given IV fluid and is off and on on low-dose Cole-Synephrine for blood pressure support depending on how sedated she currently off of Cole-Synephrine (9) Fever: Code(s): R50.9 - Fever, unspecified Status: Acute Assessment and Plan: patient febrile earlier in the course her WBCs normal and procalcitonin level is low UA was unremarkable for UTI CT chest abdomen pelvis reviewed blood and sputum cultures have been sent and are NTD 3/ changed antibiotics to broad-spectrum vancomycin cefepime (07/01) afebrile now (10) Hyperglycemia: Code(s):
[2021-07-01] MEDS: dexmedeTOMIDine 400 MCG/100 ML 400 MCG/100 ML BAG 11.6 MCG IV CONT (09:13)
[2021-07-01] MEDS: CEFEPIME 1 GM in SODIUM CHLORIDE 0.9% IV 50 ML IVPB ×2 (10:17→22:18)
[2021-07-01] MEDS: SENNA/DOCUSATE SODIUM TABLET 1 TAB PO (11:00)
--- NOTE | 2021-07-01 11:56 | PCNFU ---
Nutrition Follow-Up Complete: Inadequate Oral Intake as related to mechanical ventilation as evidenced by tube feedings. Goal: Meet estimated nutritional needs Goal: patient is progressing towards goal. We will continue current goal. Pt current nutrition is Vital AF 1.2 at 55 ml/hr over 22 hours. Last recorded weight is 54.9 kg, up from 46.4 kg on admit. Bowel Motility:+BM reported 06/29-Senokot added today. Labs Reviewed:Glu 276, Cr 0.3,BUN 22, Na 127, Hct 31.3,Hgb 9.7 Meds Noted:Fentanyl, Precedex, Suppository, Miralax, NovoLog, Lantus Ditropan, Protonix, Senokot, Vancomycin, Effexor,Seroquel. Skin: WNL Additional Notes: Patient remains on mechanical vent and tube feedings of Vital AF 1.2 at 55 ml/hr over 22 hours. Current tube feeding is providing 1452 kcals/91 gms protein/981 ml water. Free water flush 50 ml q 4 hours. Current tube feeding is meeting 100% caloric/protein needs. Agree with diet orders. Will monitor daily in ICU rounds and reassessing every Wednesday and Wednesday.
--- NOTE | 2021-07-01 12:00 | PM.IMPN ---
Progress Note: A&P Assessment and Plan (1) Septic shock: Code(s): A41.9 - Sepsis, unspecified organism; R65.21 - Severe sepsis with septic shock Status: Acute Assessment and Plan: BP elevated on admission but dropped to 69/55 on 06/26/21. Could be related to the changes in her sedation but concern for septic shock since fevers occurring at the same time. BCx NGTD. Sputum negative. MRSA nasal swab negative. CT Abd/Pelvis negative for acute pathology. Etiology would most likely be from her PNA/Tracheitis. Abx advanced on 06/27 and symptoms have improved with this change. Phenylephrine has been weaned off successfully on 06/27/21. BP more stable now. Continue to monitor. (2) Acute and chronic respiratory failure with hypercapnia: Code(s): J96.22 - Acute and chronic respiratory failure with hypercapnia Status: Acute Assessment and Plan: Patient has baseline severe COPD on home oxygen. She presents with SOB and CXR showing possible PNA. ABG 7.29/83/85 that worsened with BiPAP thus required intubation on 06/25/21. Started on Abx for possible PNA and steroids for possible COPD exacerbation. Continue mechanical ventilation. Wean as tolerated. Sedation medication being adjusted. Appreciate edge kitter input. (3) Ileus: Code(s): K56.7 - Ileus, unspecified Status: Acute Assessment and Plan: KUB today showing dilated small and large bowel, likely adynamic ileus. +BS. Tolerating TF. Bowel regiment advanced. Continue to monitor. Watch TF residuals. (4) Pneumonia: Code(s): J18.9 - Pneumonia, unspecified organism Status: Acute Assessment and Plan: CXR showing patchy bilateral airspace disease, consistent with pneumonia and she was having fevers and BP soft. HoTN could be related to sedation but concern for septic shock. CT chest scan showing multiple pulmonary nodules without change. No obvious pulmonary infiltratives noted. BCx NGTD. Sputum negative. MRSA nasal swab negative. Consider bronchitis/tracheitis. Abx adjusted and now on Cefepime, Vancomycin. She completed Azithromycin 06/30/21. Consider stopping Vanco. (5) Acute exacerbation of chronic obstructive airways disease: Code(s): J44.1 - Chronic obstructive pulmonary disease with (acute) exacerbation Status: Acute Assessment and Plan: COPD exacerbation contributing to her respiratory failure. Switched to Solu-Medrol. No wheezing. Continue steroids. As above (6) CHF (congestive heart failure): Code(s): I50.9 - Heart failure, unspecified Status: Acute Assessment and Plan: BNP 1999. CT showing pulmonary nodules but no evidence of pulmonary edema. Echo showing EF 55-60% with Grade I diastolic dysfunction. No pulmonary HTN (but pulmonary arteries enlarged by CT). She has HoTN and clinically does not appear to be fluid overloaded. Doubt she has CHF (7) History of pulmonary embolus (PE): Code(s): Z86.711 - Personal history of pulmonary embolism Status: Acute Assessment and Plan: Hgb down to 8-9 range and better today. No evidence of acute blood loss. Appears to have iron deficiency. Continue Eliquis. Continue Protonix. Monitor closely. Add iron once patient has return of normal bowel function. (8) GERD (gastroesophageal reflux disease): Qualifiers: Esophagitis presence: esophagitis presence not specified Qualified Code(s): K21.9 - Gastro-esophageal reflux disease without esophagitis Code(s): K21.9 - Gastro-esophageal reflux disease without esophagitis Status: Chronic Assessment and Plan: Stable. Continue Protonix (9) Tobacco dependence: Code(s): F17.200 - Nicotine dependence, unspecified, uncomplicated Status: Chronic Assessment and Plan: Patient will be educated about benefits of smoking cessation when able Subjective Date/time seen: 07/01/21 12:00 Interval history: 56yo female with chronic resp
[2021-07-01 12:43] LABS: Glucose Point of Care 195 mg/dl (65-105)
[2021-07-01] MEDS: MIDAZOLAM HCL (*CRX) 2 MG/2 ML VIAL IV PUSH (13:47)
[2021-07-01] MEDS: VENLAFAXINE HCL 75 MG TABLET FEED TUBE ×2 (14:00→20:20)
[2021-07-01] MEDS: dexmedeTOMIDine 400 MCG/100 ML 400 MCG/100 ML BAG 17.4 MCG IV CONT ×2 (16:50→21:32)
[2021-07-01 17:00] LABS: Glucose Point of Care 133 mg/dl (65-105)
[2021-07-01] MEDS: VANCOMYCIN HCL 1,000 MG in SODIUM CHLORIDE 0.9% IV 250 ML 250 MG IVPB (18:07)
[2021-07-01] MEDS: QUEtiapine FUMARATE 12.5 MG TABLET PO (20:20)
[2021-07-01 20:35] LABS: Glucose Point of Care 109 mg/dl (65-105)
[2021-07-01] MEDS: FENTANYL 2,500MCG/NS250ML(*CRX 2,500 MCG/250 ML BAG 12.5 MCG IV CONT (21:33)
[2021-07-02] VITALS (55 sets, daily range): BP systolic 79–162; BP diastolic 63–106; PULSE 51–134; RESP 22–30; TEMP 36.2–37.7; O2SAT 92–100
[2021-07-02 00:23] LABS: Glucose Point of Care 90 mg/dl (65-105)
[2021-07-02] MEDS: VANCOMYCIN HCL 1,000 MG in SODIUM CHLORIDE 0.9% IV 250 ML 250 MG IVPB ×2 (04:19→17:54)
[2021-07-02 04:41] LABS: Basophils Percent Auto 0.3 % (0.2-1.2); Eosinophils Percent Auto 0.5 % (0-4.4); Hematocrit 30.5 % (37.0-47.0); Hemoglobin 9.5 g/dL (12.0-15.0); Immature Granulocyte Absolute 0.02 K/mm3 (0.00-0.031); Immature Granulocyte Percent A 0.3 % (0-0.5); Lymphocytes Absolute Auto 2.19 K/mm3 (0.9-3.2); Lymphocytes Percent Auto 28.3 % (18.3-44.2); Mean Corpuscular HGB Conc 31.1 g/dl (32-36); Mean Corpuscular Volume 99.7 fl (80-100); Mean Platelet Volume 11.4 fl (7.4-10.4); Monocytes Absolute Auto 0.9 K/mm3 (0.1-0.6); Monocytes Percent Auto 11.5 % (2.6-8.5); Neutrophils Absolute Auto 4.6 K/mm3 (1.3-6.7); Neutrophils Percent Auto 59.1 % (45.5-73.1); Platelet Count Result 199 k/mm3 (150-375); Red Blood Count 3.06 M/mm3 (4.2-5.4); Red Cell Distribution Width 12.2 % (11.5-14.5); White Blood Count 7.8 K/mm3 (4.5-10.0)
[2021-07-02 05:03] LABS: Base Excess ABG 13.7 mEq/l (+/-2.0); Carboxyhemoglobin 0.3 % THb (0-2.0); Fractional Inspired Oxygen 40 %; HCO3 ABG 41.1 mEq/l (22.0-26.0); Methemoglobin ABG 0.3 %THb (0-1.5); Oxygen Content ABG 15.4 %vol (16.0-22.0); Oxygen Saturation ABG 98.7 % (95.0-100.0); Oxyhemoglobin 97.6 % THb (90.0-100.0); PO2 ABG 144.3 mmHg (80.0-100.0); PO2 FiO2 Ratio Arterial Blood 3.61 %; Reduced Hemoglobin 1.8 %THb (0-5.0); pH ABG 7.395 (7.350-7.450)
[2021-07-02 05:05] LABS: Arterial Blood Gas Vent Mode CMV; Arterial Blood Gas Ventilator rate 22 /MIN; Device VENTILATOR; Modified Allen's Test Pass; PCO2 ABG 68.6 mmHg (35.0-45.0); Site Drawn LEFT RADIAL
[2021-07-02 05:06] LABS: Arterial Blood Gas PEEP 5 cmH2O; Arterial Blood Gas Tidal Volume 340 ml
[2021-07-02] MEDS: CENTRAL LINE FLUSH 10 ML IV PUSH ×3 (05:12→22:17)
[2021-07-02 05:16] LABS: Alanine Aminotransferase 25 U/L (4-35); Alkaline Phosphatase 60 U/L (38-126); Aspartate Amino Transferase 23 U/L (14-36); Bilirubin,Total 0.2 mg/dL (0.2-1.3); Blood Urea Nitrogen 23 mg/dL (7-17); Calcium 8.5 mg/dL (8.4-10.2); Carbon Dioxide > 40 mmol/L (22-30); Chloride 87 mmol/L (98-107); Estimated CRCL calculation 112 ml/min; Estimated Glomerular Filt Rate > 60; Glucose 81 mg/dL (65-110); Magnesium 2.1 mg/dL (1.6-2.3); Phosphorus 4.8 mg/dL (2.5-4.5); Potassium 4.1 mmol/L (3.4-5.0); Sodium 131 mmol/L (137-145)
[2021-07-02] MEDS: dexmedeTOMIDine 400 MCG/100 ML 400 MCG/100 ML BAG 16.24 MCG IV CONT (07:32)
--- NOTE | 2021-07-02 07:52 | WPDINTPN ---
Progress Note: A&P Assessment and Plan (1) Ileus: Code(s): K56.7 - Ileus, unspecified Status: Acute Assessment and Plan: Abdominal was distended, tympanic on percussion obstructive series showed adynamic ileus -patient given Dulcolax will repeat suppository 07/01 with no bowel movement -will repeat suppository again -will have GI evaluate the patient -lactic acid has been ordered (2) Acute and chronic respiratory failure with hypercapnia: Code(s): J96.22 - Acute and chronic respiratory failure with hypercapnia Status: Acute Assessment and Plan: Patient has a baseline severe COPD and on home oxygen -presented with acute on chronic respiratory failure and failed BiPAP therapy in ER requiring intubation and mechanical ventilation -intubated 06/25/2021 -Chest x-ray and ABGs reviewed, patient in respiratory alkalosis, decreased respiratory rate to 22 -continue Solu-Medrol 60 IV q.day -continue bronchodilators - continue vancomycin and cefepime (07/01), as patient was febrile -06/26/2021: Sputum and blood culture negative - COVID PCR was negative on admission 06/27 failed her weaning trial due to desaturation, tachypnea and high RSBI. is she appeared in respiratory distress and was noding her head affirmative to feeling short of breath. 06/28 patient did not meet criteria for PSV due to agitation tachypnea and desaturation on holding her sedatives 06/29 will try PSV weaning trial again today 06/30 On lowering sedation this morning patient agitated, tachypneic tachycardic and appeared in obvious respiratory distress. not a candidate for weaning trial this time Sedation: Will continue Precedex, start patient on Versed and discontinue fentanyl, as it may be contributing 06/26/2020 CT C/A/P IMPRESSION: 1. Multiple bilateral pulmonary nodules without significant change from prior examination allowing for differences of technique. No significant change to bilateral pulmonary nodules. 2: Severe emphysema. 3: Pulmonary arterial hypertension. 4: No acute abdominal abnormality. (3) Acute exacerbation of chronic obstructive airways disease: Code(s): J44.1 - Chronic obstructive pulmonary disease with (acute) exacerbation Status: Acute Assessment and Plan: see above (4) GERD (gastroesophageal reflux disease): Qualifiers: Esophagitis presence: esophagitis presence not specified Qualified Code(s): K21.9 - Gastro-esophageal reflux disease without esophagitis Code(s): K21.9 - Gastro-esophageal reflux disease without esophagitis Status: Chronic Assessment and Plan: Continue PPI. (5) CHF (congestive heart failure): Code(s): I50.9 - Heart failure, unspecified Status: Acute Assessment and Plan: she has a BNP elevated but does not appear to be any significant volume overload she she received IV fluids due to low blood pressure diuretics on hold (6) Pulmonary hypertension: Code(s): I27.20 - Pulmonary hypertension, unspecified Status: Acute Assessment and Plan: secondary to COPD (7) Sinus tachycardia: Code(s): R00.0 - Tachycardia, unspecified Status: Acute Assessment and Plan: improved with IV fluid bolus and Precedex for sedation metoprolol had to be held due to low blood TSH is 0.311 which is lower than normal free T4 and T3 are normal (8) Constipation: Code(s): K59.00 - Constipation, unspecified Status: Acute Assessment and Plan: continue scheduled MiraLax and Dulcolax suppository -will add docusate (9) Hypotension: Code(s): I95.9 - Hypotension, unspecified Status: Acute Assessment and Plan: Resolved patient blood pressure dropped intubation this likely from sedation she was given IV fluid and is off and on on low-dose Cole-Synephrine for blood pressure support depending on how sedated she currently off of Cole-Synephrine (10) Fever: Code(s):
[2021-07-02] MEDS: MIDAZOLAM 100MG/NS 100ML(*CRX) 100 MG/100 ML BAG IV CONT (07:55)
[2021-07-02] MEDS: BISACODYL 10 MG SUPPOSITORY RECTAL (07:57)
[2021-07-02] MEDS: polyethylene glycoL 3350 17 GM POWD.PACK FEED TUBE (08:02)
[2021-07-02] MEDS: SENNA/DOCUSATE SODIUM TABLET 1 TAB PO (08:02)
[2021-07-02] MEDS: APIXABAN 5 MG TABLET PO ×2 (08:02→17:40)
[2021-07-02] MEDS: PANTOPRAZOLE SODIUM IV 40 MG VIAL IV PUSH ×2 (08:02→20:30)
[2021-07-02] MEDS: methylPREDNISolone SOD SUCC 125 MG VIAL 60 MG IV PUSH (08:02)
[2021-07-02] MEDS: VENLAFAXINE HCL 75 MG TABLET FEED TUBE (08:02)
[2021-07-02] MEDS: busPIRone HCL 10 MG TABLET PO ×2 (08:02→17:40)
[2021-07-02] MEDS: QUEtiapine FUMARATE 12.5 MG TABLET PO (08:02)
[2021-07-02] MEDS: DEXTROSE 50% 25 GM/50 ML SYRINGE IV PUSH ×2 (08:03→08:20)
[2021-07-02 08:07] LABS: Glucose Point of Care 68 mg/dl (65-105)
--- NOTE | 2021-07-02 08:52 | PM.IMPN ---
Progress Note: A&P Assessment and Plan (1) Septic shock: Code(s): A41.9 - Sepsis, unspecified organism; R65.21 - Severe sepsis with septic shock Status: Acute Assessment and Plan: BP elevated on admission but dropped to 69/55 on 06/26/21. Could be related to the changes in her sedation but concern for septic shock since fevers occurring at the same time. WBC at 11K, procalcitonin 0.1. BCx NGTD. Sputum negative. MRSA nasal swab negative. CT Abd/Pelvis negative for acute pathology. Etiology would most likely be from her PNA/Tracheitis. Abx advanced on 06/27 and symptoms have improved with this change. Phenylephrine was required but has since been weaned off successfully on 06/27/21. BP dropped overnight felt related to sedation. Continue to monitor. (2) Acute and chronic respiratory failure with hypercapnia: Code(s): J96.22 - Acute and chronic respiratory failure with hypercapnia Status: Acute Assessment and Plan: Patient has baseline severe COPD on home oxygen. She presents with SOB and CXR showing possible PNA. ABG 7.29/83/85 on admission so BiPAP started. Her condition worsened requiring intubation on 06/25/21. Started on Abx for possible PNA and steroids for possible COPD exacerbation. Serum bicarb >40. Continue mechanical ventilation. Wean as tolerated. Sedation medication being adjusted. Add Diamox? Appreciate building and grounds supervisor input. (3) Ileus: Code(s): K56.7 - Ileus, unspecified Status: Acute Assessment and Plan: KUB today showing dilated small and large bowel, likely adynamic ileus. BP dropped overnight felt related to sedation but consider bowel ischemia. TF off and now on suction. Lactic level pending. GI consulted. Continue to monitor. Repeat CT A/P? (4) Pneumonia: Code(s): J18.9 - Pneumonia, unspecified organism Status: Acute Assessment and Plan: CXR showing patchy bilateral airspace disease, consistent with pneumonia and she was having fevers and BP soft. HoTN could be related to sedation but concern for septic shock. CT chest scan showing multiple pulmonary nodules without change. No obvious pulmonary infiltratives noted. BCx NGTD. Sputum negative. MRSA nasal swab negative. Consider bronchitis/tracheitis. Abx adjusted and now on Cefepime, Vancomycin. She completed Azithromycin 06/30/21. Fever resolved and BP improved. BP soft overnight due to sedation. (5) Acute exacerbation of chronic obstructive airways disease: Code(s): J44.1 - Chronic obstructive pulmonary disease with (acute) exacerbation Status: Acute Assessment and Plan: COPD exacerbation contributing to her respiratory failure. Switched to Solu-Medrol. No wheezing. Continue steroids. Continue prn Nebs treatments. As above (6) CHF (congestive heart failure): Code(s): I50.9 - Heart failure, unspecified Status: Acute Assessment and Plan: BNP 2000. CT showing pulmonary nodules but no evidence of pulmonary edema. Echo showing EF 55-60% with Grade I diastolic dysfunction. No pulmonary HTN (but pulmonary arteries enlarged by CT). She clinically does not appear to be fluid overloaded. Doubt she has CHF. (7) History of pulmonary embolus (PE): Code(s): Z86.711 - Personal history of pulmonary embolism Status: Acute Assessment and Plan: Hgb down to 8-9 range and stable. No evidence of acute blood loss. Appears to have iron deficiency. Continue Eliquis. Continue Protonix. Monitor closely. Add iron once patient has return of normal bowel function. (8) GERD (gastroesophageal reflux disease): Qualifiers: Esophagitis presence: esophagitis presence not specified Qualified Code(s): K21.9 - Gastro-esophageal reflux disease without esophagitis Code(s): K21.9 - Gastro-esophageal reflux disease without esophagitis Status: Chronic Assessment and Plan: Stable. Continue Protonix (9) Tobacco dependence: Code(s): Sawyer
[2021-07-02 09:03] LABS: INR 1.1; Prothrombin Time 13.8 Seconds (11.1-14.7)
[2021-07-02 09:04] LABS: Partial Thromboplastin Time 29.6 SECONDS (22.3-36.8)
[2021-07-02] MEDS: hetaSTARCH 6%/NACL 500 ML 250 ML IV CONT (09:58)
[2021-07-02] MEDS: CEFEPIME 1 GM in SODIUM CHLORIDE 0.9% IV 50 ML IVPB ×2 (10:16→22:11)
[2021-07-02] MEDS: MIDAZOLAM HCL (*CRX) 2 MG/2 ML VIAL IV PUSH ×2 (10:45→13:13)
[2021-07-02 11:14] LABS: Lactic Acid Reflex < 0.5 mmol/L (0.7-2.1)
--- NOTE | 2021-07-02 11:59 | PCFNICU ---
ICU Rounding Note: Pt current nutrition is Vital AF 1.2 at 55 ml/hr over 22 hours. Last recorded weight is 54.9 kg,down from 63.5 kg on admit Bowel Motility: NO BM reported. Labs Reviewed:Glu 121, Cr 0.5,Alb 2.7, Na 125, Hgb 8.9,Hct 26.4 Meds Noted:Fentanyl, Precedex, Suppository, Miralax, NovoLog, Lantus,Ditropan, Protonix, Senokot, Vancomycin, Effexor,Seroquel, Lopressor, Solu-Medrol. Skin: WNL Additional Notes: Patient remains on mechanical vent. Failed breathing trials.TF on hold. GI consult, possible ileus? Patient has not had BM since 06/26. On 06/29 BM was very little. CT scan today. If tube feeding restart recommend continue Vital AF at 55 ml/hr. Following daily in ICU rounds and reassessing every Wednesday and Wednesday.
--- NOTE | 2021-07-02 12:31 | WPDGICN ---
Assessment and Plan Assessment and plan (1) Ileus: Code(s): K56.7 - Ileus, unspecified Status: Acute Assessment and Plan: I do hear bowel sounds. She obviously has gas in her small bowel and colon. Perhaps a stimulant such as Reglan will help mobilize that. At this time I do not see the amount of colonic distention that would require decompression colonoscopy, but we will check her daily. I will order Reglan 10 mg IV q.6 hours x4 doses. (2) COPD exacerbation: Code(s): J44.1 - Chronic obstructive pulmonary disease with (acute) exacerbation Status: Acute Assessment and Plan: A chronic problem for which she was recently hospitalized and and for which she is now still on a ventilator. She is sedated with fentanyl and Precedex. GI Consult Note Consult date/time: 07/02/21 12:31 HPI: Sharifa Mosquera is a 56 year old female was admitted 1 week ago with respiratory distress. Within 24 hours she required intubation and mechanical ventilation. She had a similar episode of acute on chronic respiratory failure in March. She has multiple medical issues including on lung mass. She has severe emphysema. She has developed abdominal distension and apparent ileus on x-ray.She has been giving a Dulcolax suppository without any success. Lactic acid level was done today and is normal. She remains on antibiotics, vancomycin and cefepime, for possible pneumonia. CT scan of the chest was negative for pulmonary emboli. Also negative for acute cardiopulmonary process. CT scan did show moderate distention of the ascending and transverse colon with gas Review of Systems Review of Systems: All systems reviewed & are unremarkable except as noted in HPI and below PMFSH Past Medical History Medical History Anemia Anxiety Arm fracture, left Arthritis Back pain Bronchitis Chronic respiratory failure COPD (chronic obstructive pulmonary disease) Depression Emphysema of lung Foot fracture, right GERD (gastroesophageal reflux disease) History of pulmonary embolus (PE) Inguinal hernia Kidney stones On home O2 2 L at rest and 3 L with activity Pneumonia Pulmonary embolism Pulmonary hypertension Pulmonary nodules suspicious for bronchogenic carcinoma Sleep apnea Tobacco abuse UTI (urinary tract infection) Surgical History Surgical History Hx of arthroscopy of left knee Hx of elbow surgery lt elbow Hx of inguinal hernia repair Hx of tonsillectomy Hx of tubal ligation Family History Family History Father , at 46 of lung CA Lung cancer Mother Cerebrovascular accident Grandparent Diabetes mellitus Sibling Lung cancer Social History Social History Social History: the patient has 5 children. She is . And she lives with her sister at this time. Her sister is a durable power breakdown man for healthcare the patient is a full code. Smoking packs per day: 0.25 Smoking cigarettes per day: 5.0 Years smoked: 45 Smoking pack-years: 11.25 Smoking status: Current every day smoker Tobacco type: cigarettes Second hand tobacco smoke exposure: Yes Alcohol intake: unknown Substance use: unknown Substance use type: does not use Additional living arrangements comments: stays with cousin Additional occupation/education comments: disable Gender identity (if verbalized by the patient): Female Spiritual care concerns: No Agree to blood products: Yes Meds Home Medications and Allergies Home Medications Medication Instructions Recorded Confirmed Type Eliquis 5 mg PO BID 03/06/21 06/26/21 History Incruse Ellipta 1 inh INHALATION DAILY 03/06/21 06/26/21 History albuterol sulfate 1 - 2 puff INHALAT
[2021-07-02] MEDS: PROPOFOL IV EMULSION 100 ML 4.94 MG IV CONT (13:15)
[2021-07-02 13:17] LABS: Glucose Point of Care 115 mg/dl (65-105)
[2021-07-02] MEDS: fentaNYL CITRATE INJ (*CRX) 100 MCG/2 ML VIAL 50 MCG IV PUSH (14:18)
[2021-07-02] MEDS: LORazepam INJ (*CRX) 2 MG/ML VIAL IV PUSH (16:07)
[2021-07-02 17:08] LABS: Glucose Point of Care 148 mg/dl (65-105)
[2021-07-02 17:24] LABS: Vancomycin Trough 13.4 ug/mL (10.0-20.0)
[2021-07-02] MEDS: METOCLOPRAMIDE HCL INJ 10 MG/2 ML VIAL IV PUSH ×2 (17:55→23:58)
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
[2021-07-03] VITALS (35 sets, daily range): BP systolic 93–126; BP diastolic 66–82; PULSE 86–112; RESP 22; TEMP 37.1–37.6; O2SAT 92–99
[2021-07-03 00:02] LABS: Glucose Point of Care 131 mg/dl (65-105)
[2021-07-03 00:02] LABS: Glucose Point of Care 104 mg/dl (65-105)
[2021-07-03] MEDS: FENTANYL 2,500MCG/NS250ML(*CRX 2,500 MCG/250 ML BAG 17.5 MCG IV CONT (00:56)
[2021-07-03] MEDS: MIDAZOLAM 100MG/NS 100ML(*CRX) 100 MG/100 ML BAG 6 MG IV CONT (01:01)
[2021-07-03 04:15] LABS: Basophils Percent Auto 0.2 % (0.2-1.2); Eosinophils Absolute Auto 0.1 K/mm3 (0-0.3); Hematocrit 30.9 % (37.0-47.0); Hemoglobin 9.5 g/dL (12.0-15.0); Immature Granulocyte Absolute 0.03 K/mm3 (0.00-0.031); Immature Granulocyte Percent A 0.2 % (0-0.5); Lymphocytes Absolute Auto 2.75 K/mm3 (0.9-3.2); Lymphocytes Percent Auto 20.8 % (18.3-44.2); Mean Corpuscular HGB Conc 30.7 g/dl (32-36); Mean Corpuscular Hemoglobin 31.6 pg (26-34); Mean Corpuscular Volume 102.7 fl (80-100); Monocytes Absolute Auto 1.8 K/mm3 (0.1-0.6); Monocytes Percent Auto 13.8 % (2.6-8.5); Neutrophils Absolute Auto 8.4 K/mm3 (1.3-6.7); Platelet Count Result 290 k/mm3 (150-375); Red Blood Count 3.01 M/mm3 (4.2-5.4); Red Cell Distribution Width 12.4 % (11.5-14.5); White Blood Count 13.2 K/mm3 (4.5-10.0)
[2021-07-03 04:26] LABS: Lactic Acid Reflex 0.7 mmol/L (0.7-2.1)
[2021-07-03 04:31] LABS: Potassium 3.6 mmol/L (3.4-5.0)
[2021-07-03 04:57] LABS: Alanine Aminotransferase 26 U/L (4-35); Albumin Level 2.7 g/dL (3.5-5.1); Alkaline Phosphatase 67 U/L (38-126); Aspartate Amino Transferase 28 U/L (14-36); Bilirubin,Total 0.2 mg/dL (0.2-1.3); Blood Urea Nitrogen 21 mg/dL (7-17); Calcium 8.1 mg/dL (8.4-10.2); Carbon Dioxide > 40 mmol/L (22-30); Chloride 91 mmol/L (98-107); Estimated CRCL calculation 112 ml/min; Estimated Glomerular Filt Rate > 60; Glucose 86 mg/dL (65-110); Phosphorus 4.5 mg/dL (2.5-4.5); Sodium 135 mmol/L (137-145)
[2021-07-03] MEDS: VANCOMYCIN HCL 1,000 MG in SODIUM CHLORIDE 0.9% IV 250 ML 250 MG IVPB ×2 (05:18→16:37)
[2021-07-03] MEDS: METOCLOPRAMIDE HCL INJ 10 MG/2 ML VIAL IV PUSH ×2 (05:18→12:17)
[2021-07-03] MEDS: CENTRAL LINE FLUSH 10 ML IV PUSH ×3 (05:22→22:25)
[2021-07-03 07:51] LABS: Glucose Point of Care 77 mg/dl (65-105)
--- NOTE | 2021-07-03 07:52 | WPDINTPN ---
Progress Note: A&P Assessment and Plan (1) Ileus: Code(s): K56.7 - Ileus, unspecified Status: Acute Assessment and Plan: Abdominal was distended, tympanic on percussion obstructive series showed adynamic ileus -patient was given Dulcolax suppositories on 07/01 and 07/02 with no bowel movement -appreciate GI evaluation, has been started on Reglan -lactic acid was normal (2) Acute and chronic respiratory failure with hypercapnia: Code(s): J96.22 - Acute and chronic respiratory failure with hypercapnia Status: Acute Assessment and Plan: Patient has a baseline severe COPD and on home oxygen -presented with acute on chronic respiratory failure and failed BiPAP therapy in ER requiring intubation and mechanical ventilation -intubated 06/25/2021 -Chest x-ray and ABGs reviewed, patient in respiratory alkalosis, decreased respiratory rate to 22 -continue Solu-Medrol 60 IV q.day -continue bronchodilators - continue vancomycin and cefepime (07/01), as patient was febrile -06/26/2021: Sputum and blood culture negative - COVID PCR was negative on admission 06/27 to 07/01 failed her weaning trial due to desaturation, tachypnea and high RSBI. is she appeared in respiratory distress and was noding her head affirmative to feeling short of breath. Thereafter she has developed an ileus which is precluding from placing patient on breathing trial due to abdominal distension Sedation: Sedation has been add problem for the patient, she has a history of opioid abuse at home, tried to take her of the fentanyl because she has an ileus stool in the bowels on x-ray and CT scan. Patient did not tolerate coming off the fentanyl which had to be restarted last night. Currently on Versed and fentanyl infusion only -of Precedex and propofol 06/26/2020 CT C/A/P IMPRESSION: 1. Multiple bilateral pulmonary nodules without significant change from prior examination allowing for differences of technique. No significant change to bilateral pulmonary nodules. 2: Severe emphysema. 3: Pulmonary arterial hypertension. 4: No acute abdominal abnormality. (3) Acute exacerbation of chronic obstructive airways disease: Code(s): J44.1 - Chronic obstructive pulmonary disease with (acute) exacerbation Status: Acute Assessment and Plan: see above (4) GERD (gastroesophageal reflux disease): Qualifiers: Esophagitis presence: esophagitis presence not specified Qualified Code(s): K21.9 - Gastro-esophageal reflux disease without esophagitis Code(s): K21.9 - Gastro-esophageal reflux disease without esophagitis Status: Chronic Assessment and Plan: Continue PPI. (5) CHF (congestive heart failure): Code(s): I50.9 - Heart failure, unspecified Status: Acute Assessment and Plan: she has a BNP elevated but does not appear to be any significant volume overload she she received IV fluids due to low blood pressure diuretics on hold -diuresing well on her own with negative fluid balance (6) Pulmonary hypertension: Code(s): I27.20 - Pulmonary hypertension, unspecified Status: Acute Assessment and Plan: secondary to COPD (7) Sinus tachycardia: Code(s): R00.0 - Tachycardia, unspecified Status: Acute Assessment and Plan: improved with IV fluid bolus and Precedex for sedation metoprolol had to be held due to low blood TSH is 0.311 which is lower than normal free T4 and T3 are normal (8) Constipation: Code(s): K59.00 - Constipation, unspecified Status: Acute Assessment and Plan: continue scheduled MiraLax, docusate and Dulcolax suppository -appreciate GI following the patient, added Reglan (9) Hypotension: Code(s): I95.9 - Hypotension, unspecified Status: Acute Assessment and Plan: Resolved patient blood pressure dropped intubation this likely from sedation she was given IV fluid and is off an
[2021-07-03] MEDS: SENNA/DOCUSATE SODIUM TABLET 1 TAB PO (08:07)
[2021-07-03] MEDS: busPIRone HCL 10 MG TABLET PO ×2 (08:07→16:50)
[2021-07-03] MEDS: BISACODYL 10 MG SUPPOSITORY RECTAL (08:07)
[2021-07-03] MEDS: APIXABAN 5 MG TABLET PO ×2 (08:08→16:50)
[2021-07-03] MEDS: methylPREDNISolone SOD SUCC 125 MG VIAL 60 MG IV PUSH (08:08)
[2021-07-03] MEDS: PANTOPRAZOLE SODIUM IV 40 MG VIAL IV PUSH ×2 (08:08→20:10)
[2021-07-03] MEDS: polyethylene glycoL 3350 17 GM POWD.PACK FEED TUBE (08:08)
[2021-07-03] MEDS: CEFEPIME 1 GM in SODIUM CHLORIDE 0.9% IV 50 ML IVPB ×2 (09:22→22:24)
--- NOTE | 2021-07-03 09:25 | WPDGIPROGNO ---
Progress Note: A&P Assessment and Plan (1) Ileus: Code(s): K56.7 - Ileus, unspecified Status: Acute Assessment and Plan: I do hear bowel sounds. She obviously has gas in her small bowel and colon. Perhaps a stimulant such as Reglan will help mobilize that. At this time I do not see the amount of colonic distention that would require decompression colonoscopy, but we will check her daily. I will order Reglan 10 mg IV q.6 hours x4 doses. 07/03 the Reglan appears to have helped. Abdomen is flat. KUB shows air has passed. There is still more NG contents and I would expect. We will continue the Reglan for another day. (2) COPD exacerbation: Code(s): J44.1 - Chronic obstructive pulmonary disease with (acute) exacerbation Status: Acute Assessment and Plan: A chronic problem for which she was recently hospitalized and and for which she is now still on a ventilator. She is sedated with fentanyl and Precedex. so far weaning and extubation has not been successful (3) Constipation: Code(s): K59.00 - Constipation, unspecified Status: Acute Assessment and Plan: She is not truly constipated but to prevent obstipation or impaction I will give her Citrate of magnesium per NG tube today Subjective Date/time seen: 07/03/21 09:25 patient has not passed any stool to her knowledge. NG is bringing back some dark liquid. Appears there could be flecks of old blood in it, likely due to nasogastric irritation of the gastric mucosa in an anticoagulated patient. Interval history: 56yo female with chronic respiratory failure, COPD, JONATHAN and on going tobacco use here for SOB. admitted with acute on chronic respiratory failure requiring intubation and mechanical ventilation. Intubated 06/25/2021 07/03/2021: Patient remains in the ICU, intubated on CMV mode of ventilation, peep of 5, 35% FiO2. Yesterday they tried to decrease the fentanyl and increased to Precedex and started on Versed infusion X, she did not tolerate it, she was fighting the ventilator kicking her legs, holding on things, biting the ET tube. She does have a history of opioid abuse at home. They restarted the fentanyl which calmed her down. Had taken her off the fentanyl as she has an ileus and a lot of stool. This morning she his calm, on fentanyl and Versed infusion, Precedex has been turned off. her abdomen is much less distended. KUB just done reveals complete resolution of distended bowel loops and colon. There is stool in the colon as expected. We can give her laxatives per NG to help prevent impaction. Exam Const: General: other ( sedated on ventilator) Nutritional Appearance: underweight GI: Inspection: other ( Flat) GI Palp: No abdominal tenderness, Yes Soft to palpation and Yes No hepatosplenomegaly present Auscultation: normal bowel sounds Objective Data Vital Signs Vital Signs: Vital Signs - 24 hr 07/02/21 10:00 07/02/21 10:11 07/02/21 10:13 Temperature Pulse Rate 61 54 L 54 L Respiratory Rate 22 H 22 H Blood Pressure 88/66 L 88/66 L Pulse Oximetry 100 07/02/21 11:31 07/02/21 12:00 07/02/21 12:30 Temperature 36.2 C L Pulse Rate 92 95 96 Respiratory Rate 28 H 22 H 30 H Blood Pressure 136/106 H 101/87 Pulse Oximetry 92 07/02/21 13:15 07/02/21 13:22 07/02/21 13:35 Temperature Pulse Rate 134 H 128 H 121 H Respiratory Rate 30 H 27 H Blood Pressure 162/82 H Pulse Oximetry 95 07/02/21 13:56 07/02/21 14:00 07/02/21 14:07 Temperature Pulse Rate 120 H 97 120 H Respiratory Rate 24 H 22 H 24 H Blood Pressure 104/73 Pulse Oximetry 99 07/02/21 15:00 07/02/21 15:12 07/02/21 15:14 Temperature Pulse Rate 111 H 120 H 120 H Respiratory Rate 26 H 24 H 24 H Blood Pressure Pulse Oximetry 07/02/21 15:27 07/02/21 15:54 07/02/21 16:00 Temperature 36.9 C Pulse Rate 114 H 123 H 129 H Respiratory Rate 27 H 28 H 28 H Blood Pressure 126/76 Pul
[2021-07-03] MEDS: MAGNESIUM CITRATE 300 ML BTL 150 ML PO (10:56)
--- NOTE | 2021-07-03 11:27 | PCFNICU ---
ICU Rounding Note: Pt current nutrition is Vital AF 1.2 at 55 ml/hr over 22 hours. Last recorded weight is 54.7 kg, up from 46.4 kg on admit. Bowel Motility: No BM reported Labs Reviewed:Cr 0.4,Na 135, Hct 30.9,Hgb 9.5, Alb 2.7 Meds Noted:Protonix, Fentanyl, Versed, Solu Medrol, Reglan, Cefepime, Ditropan, Senokot, Dulcolax Suppository, Reglan. Skin: WNL Additional Notes: Patient remains on mechanical vent. Tube feeding remain on hold. Ileus reported with large amount of stool noted. Following daily in ICU rounds and reassessing every Wednesday and Wednesday.
[2021-07-03 12:16] LABS: Glucose Point of Care 124 mg/dl (65-105)
--- NOTE | 2021-07-03 12:25 | PC.NURSE ---
PICC line dressing and caps changed using sterile technique. Patient tolerated well.
[2021-07-03] MEDS: DEXTROSE 5%/0.9% SOD CHL 1,000 ML 50 ML IV CONT (13:58)
--- NOTE | 2021-07-03 14:14 | PM.IMPN ---
Progress Note: A&P Assessment and Plan (1) Septic shock: Code(s): A41.9 - Sepsis, unspecified organism; R65.21 - Severe sepsis with septic shock Status: Acute Assessment and Plan: BP elevated on admission but dropped to 69/55 on 06/26/21. Could be related to the changes in her sedation but concern for septic shock since fevers occurring at the same time. WBC at 11K, procalcitonin 0.1. BCx NGTD. Sputum negative. MRSA nasal swab negative. CT Abd/Pelvis negative for acute pathology. Etiology would most likely be from her PNA/Tracheitis. Abx advanced on 06/27 and symptoms have improved with this change. Phenylephrine was required but was weaned off successfully on 06/27/21 (required it briefly again 07/02- but felt related to sedation). Continue to monitor. (2) Acute and chronic respiratory failure with hypercapnia: Code(s): J96.22 - Acute and chronic respiratory failure with hypercapnia Status: Acute Assessment and Plan: Patient has baseline severe COPD on home oxygen. She presents with SOB and CXR showing possible PNA. ABG 7.29/83/85 on admission so BiPAP started. Her condition worsened requiring intubation on 06/25/21. Started on Abx for possible PNA and steroids for possible COPD exacerbation. Serum bicarb >40. Continue mechanical ventilation. Wean as tolerated. Sedation medication being adjusted. Appreciate outreach team member input. (3) Ileus: Code(s): K56.7 - Ileus, unspecified Status: Acute Assessment and Plan: KUB today showing dilated small and large bowel, likely adynamic ileus. TF off and now on suction. Lactic level normal. GI consulted and appreciate their input. Reglan added. Exam better. Continue to monitor. (4) Pneumonia: Code(s): J18.9 - Pneumonia, unspecified organism Status: Acute Assessment and Plan: CXR showing patchy bilateral airspace disease, consistent with pneumonia and she was having fevers and BP soft. HoTN could be related to sedation but concern for septic shock. CT chest scan showing multiple pulmonary nodules without change. No obvious pulmonary infiltratives noted. BCx NGTD. Sputum negative. MRSA nasal swab negative. Consider bronchitis/tracheitis. Abx adjusted and now on Cefepime, Vancomycin. She completed Azithromycin 06/30/21. Fever resolved and BP improved. Continue abx to complete a course. (5) Acute exacerbation of chronic obstructive airways disease: Code(s): J44.1 - Chronic obstructive pulmonary disease with (acute) exacerbation Status: Acute Assessment and Plan: COPD exacerbation contributing to her respiratory failure. No wheezing. Continue steroids. Continue prn Nebs treatments. As above (6) CHF (congestive heart failure): Code(s): I50.9 - Heart failure, unspecified Status: Acute Assessment and Plan: BNP 2000. CT showing pulmonary nodules but no evidence of pulmonary edema. Echo showing EF 55-60% with Grade I diastolic dysfunction. No pulmonary HTN (but pulmonary arteries enlarged by CT). She clinically does not appear to be fluid overloaded. Doubt she has CHF. (7) History of pulmonary embolus (PE): Code(s): Z86.711 - Personal history of pulmonary embolism Status: Acute Assessment and Plan: Hgb down to 8-9 range and stable. No evidence of acute blood loss. Appears to have iron deficiency. Continue Eliquis. Continue Protonix. Monitor closely. Add iron once patient has return of normal bowel function. (8) GERD (gastroesophageal reflux disease): Qualifiers: Esophagitis presence: esophagitis presence not specified Qualified Code(s): K21.9 - Gastro-esophageal reflux disease without esophagitis Code(s): K21.9 - Gastro-esophageal reflux disease without esophagitis Status: Chronic Assessment and Plan: Stable. Continue Protonix (9) Tobacco dependence: Code(s): F17.200 - Nicotine dependence, unspecified, uncomplicated Sta
[2021-07-03] MEDS: FENTANYL 2,500MCG/NS250ML(*CRX 2,500 MCG/250 ML BAG 15 MCG IV CONT (16:30)
[2021-07-03] MEDS: MIDAZOLAM 100MG/NS 100ML(*CRX) 100 MG/100 ML BAG IV CONT (16:32)
[2021-07-03 17:09] LABS: Glucose Point of Care 149 mg/dl (65-105)
[2021-07-03 20:42] LABS: Glucose Point of Care 153 mg/dl (65-105)
[2021-07-04] VITALS (30 sets, daily range): BP systolic 98–154; BP diastolic 76–98; PULSE 69–119; RESP 8–26; TEMP 36.8–37.4; O2SAT 93–100
[2021-07-04 00:08] LABS: Glucose Point of Care 134 mg/dl (65-105)
[2021-07-04] MEDS: VANCOMYCIN HCL 1,000 MG in SODIUM CHLORIDE 0.9% IV 250 ML 250 MG IVPB (04:21)
[2021-07-04 04:44] LABS: Glucose Point of Care 121 mg/dl (65-105)
[2021-07-04 04:45] LABS: Basophils Percent Auto 0.2 % (0.2-1.2); Eosinophils Absolute Auto 0.2 K/mm3 (0-0.3); Eosinophils Percent Auto 1.8 % (0-4.4); Hematocrit 29.3 % (37.0-47.0); Hemoglobin 9.1 g/dL (12.0-15.0); Immature Granulocyte Absolute 0.02 K/mm3 (0.00-0.031); Immature Granulocyte Percent A 0.2 % (0-0.5); Lymphocytes Absolute Auto 2.16 K/mm3 (0.9-3.2); Lymphocytes Percent Auto 25.9 % (18.3-44.2); Mean Corpuscular HGB Conc 31.1 g/dl (32-36); Mean Corpuscular Hemoglobin 31.4 pg (26-34); Monocytes Absolute Auto 1.1 K/mm3 (0.1-0.6); Monocytes Percent Auto 12.6 % (2.6-8.5); Neutrophils Absolute Auto 4.9 K/mm3 (1.3-6.7); Neutrophils Percent Auto 59.3 % (45.5-73.1); Platelet Count Result 216 k/mm3 (150-375); Red Cell Distribution Width 12.2 % (11.5-14.5); White Blood Count 8.3 K/mm3 (4.5-10.0)
[2021-07-04 05:07] LABS: Alanine Aminotransferase 22 U/L (4-35); Albumin Level 2.6 g/dL (3.5-5.1); Alkaline Phosphatase 60 U/L (38-126); Aspartate Amino Transferase 27 U/L (14-36); Bilirubin,Total 0.3 mg/dL (0.2-1.3); Blood Urea Nitrogen 31 mg/dL (7-17); Calcium 8.1 mg/dL (8.4-10.2); Carbon Dioxide > 40 mmol/L (22-30); Chloride 94 mmol/L (98-107); Estimated CRCL calculation 111 ml/min; Estimated Glomerular Filt Rate > 60; Glucose 123 mg/dL (65-110); Magnesium 2.2 mg/dL (1.6-2.3); Phosphorus 3.9 mg/dL (2.5-4.5); Potassium 3.8 mmol/L (3.4-5.0); Sodium 137 mmol/L (137-145)
[2021-07-04] MEDS: CENTRAL LINE FLUSH 10 ML IV PUSH ×3 (05:31→19:37)
[2021-07-04 05:40] LABS: Base Excess ABG 10.5 mEq/l (+/-2.0); Fractional Inspired Oxygen 35 %; HCO3 ABG 35.6 mEq/l (22.0-26.0); Oxygen Content ABG 13.9 %vol (16.0-22.0); Oxygen Saturation ABG 97.3 % (95.0-100.0); Oxyhemoglobin 95.1 % THb (90.0-100.0); PCO2 ABG 50.9 mmHg (35.0-45.0); PO2 ABG 91.4 mmHg (80.0-100.0); PO2 FiO2 Ratio Arterial Blood 2.61 %; Total Hemoglobin 10.3 g/dL (12.0-18.0); pH ABG 7.463 (7.350-7.450)
[2021-07-04 05:41] LABS: Device VENTILATOR; Modified Allen's Test Pass; Site Drawn RIGHT RADIAL
[2021-07-04 05:42] LABS: Arterial Blood Gas PEEP 5 cmH2O; Arterial Blood Gas Tidal Volume 340 ml; Arterial Blood Gas Vent Mode CMV; Arterial Blood Gas Ventilator rate 22 /MIN
--- NOTE | 2021-07-04 08:13 | WPDINTPN ---
Progress Note: A&P Assessment and Plan (1) Ileus: Code(s): K56.7 - Ileus, unspecified Status: Acute Assessment and Plan: Abdominal was distended, tympanic on percussion obstructive series showed adynamic ileus -patient was given Dulcolax suppositories on 07/01 and 07/02 with no bowel movement -appreciate GI evaluation - contiue Reglan -lactic acid was normal - Was given mag citrate per GI with no bowel movements 07/03: CT chest/ abd/pelvis: 1. No pulmonary emboli or acute cardiopulmonary findings. 2. Severe emphysema and hyperinflation. Left upper lobe scarring. 3. Tracheobronchial chondromalacia. 4. Generalized body wall, mesenteric fat stranding, edema. Periportal edema. 5. Large amount of ascending and transverse colonic stool and gas. 6. Possible rectosigmoid colonic colitis. Diarrhea. (2) Acute and chronic respiratory failure with hypercapnia: Code(s): J96.22 - Acute and chronic respiratory failure with hypercapnia Status: Acute Assessment and Plan: Patient has a baseline severe COPD and on home oxygen -presented with acute on chronic respiratory failure and failed BiPAP therapy in ER requiring intubation and mechanical ventilation -intubated 06/25/2021 -07/04: ABGS much improved, placed pt of ASV and will put her on SBT after decreasing the sedation a little as she was only breathing 6-7 times on PSV 01/28 -continue Solu-Medrol 60 IV q.day -continue bronchodilators - continue vancomycin and cefepime (07/01), as patient was febrile -06/26/2021: Sputum and blood culture negative 07/03: CTA chest 1. No pulmonary emboli or acute cardiopulmonary findings. 2. Severe emphysema and hyperinflation. Left upper lobe scarring. 3. Tracheobronchial chondromalacia. - COVID PCR was negative on admission 06/27 to 07/01 failed her weaning trial due to desaturation, tachypnea and high RSBI. is she appeared in respiratory distress and was noding her head affirmative to feeling short of breath. Thereafter she has developed an ileus which is precluding from placing patient on breathing trial due to abdominal distension Sedation: Fentanyl 150 mcg/hr and versed 5 mg/hr infusions. will gradually titrate 06/26/2020 CT C/A/P IMPRESSION: 1. Multiple bilateral pulmonary nodules without significant change from prior examination allowing for differences of technique. No significant change to bilateral pulmonary nodules. 2: Severe emphysema. 3: Pulmonary arterial hypertension. 4: No acute abdominal abnormality. (3) Acute exacerbation of chronic obstructive airways disease: Code(s): J44.1 - Chronic obstructive pulmonary disease with (acute) exacerbation Status: Acute Assessment and Plan: see above (4) GERD (gastroesophageal reflux disease): Qualifiers: Esophagitis presence: esophagitis presence not specified Qualified Code(s): K21.9 - Gastro-esophageal reflux disease without esophagitis Code(s): K21.9 - Gastro-esophageal reflux disease without esophagitis Status: Chronic Assessment and Plan: Continue PPI. (5) CHF (congestive heart failure): Code(s): I50.9 - Heart failure, unspecified Status: Acute Assessment and Plan: she has a BNP elevated but does not appear to be any significant volume overload she she received IV fluids due to low blood pressure diuretics on hold -diuresing well on her own with negative fluid balance (6) Pulmonary hypertension: Code(s): I27.20 - Pulmonary hypertension, unspecified Status: Acute Assessment and Plan: secondary to COPD (7) Sinus tachycardia: Code(s): R00.0 - Tachycardia, unspecified Status: Acute Assessment and Plan: RESOLVED metoprolol had to be held due to low blood TSH is 0.311 which is lower than normal free T4 and T3 are normal (8) Constipation: Code(s): K59.00 - Constipation, unspecified Status: Acute Assessment and Lucia
[2021-07-04] MEDS: methylPREDNISolone SOD SUCC 125 MG VIAL 60 MG IV PUSH (08:35)
[2021-07-04] MEDS: PANTOPRAZOLE SODIUM IV 40 MG VIAL IV PUSH ×2 (08:43→20:31)
[2021-07-04] MEDS: busPIRone HCL 10 MG TABLET PO ×2 (08:45→17:37)
[2021-07-04] MEDS: SENNA/DOCUSATE SODIUM TABLET 1 TAB PO (08:45)
[2021-07-04] MEDS: APIXABAN 5 MG TABLET PO ×2 (08:45→17:37)
[2021-07-04] MEDS: polyethylene glycoL 3350 17 GM POWD.PACK FEED TUBE (08:46)
--- NOTE | 2021-07-04 08:54 | PM.IMPN ---
Progress Note: A&P Assessment and Plan (1) Septic shock: Code(s): A41.9 - Sepsis, unspecified organism; R65.21 - Severe sepsis with septic shock Status: Acute Assessment and Plan: BP elevated on admission but dropped to 69/55 on 06/26/21. Could be related to the changes in her sedation but concern for septic shock since fevers occurring at the same time. WBC at 11K, procalcitonin 0.1. BCx NGTD. Sputum negative. MRSA nasal swab negative. CT Abd/Pelvis negative for acute pathology. Etiology would most likely be from her PNA/Tracheitis. Abx advanced on 06/27 and symptoms have improved with this change. Phenylephrine was required but was weaned off successfully on 06/27/21 (required it briefly again 07/02- but felt related to sedation). Continue to monitor. Continue abx to complete a course. (2) Acute and chronic respiratory failure with hypercapnia: Code(s): J96.22 - Acute and chronic respiratory failure with hypercapnia Status: Acute Assessment and Plan: Patient has baseline severe COPD on home oxygen. She presents with SOB and CXR showing possible PNA. ABG 7.29/83/85 on admission so BiPAP started. Her condition worsened requiring intubation on 06/25/21. Started on Abx for possible PNA and steroids for possible COPD exacerbation. Serum bicarb >40. Continue mechanical ventilation. Wean as tolerated. Sedation medication being adjusted. Appreciate sugar drier input. (3) Ileus: Code(s): K56.7 - Ileus, unspecified Status: Acute Assessment and Plan: KUB yesterday showing normal bowel gas pattern. TF off and now on suction. Lactic level normal. GI consulted and appreciate their input. Reglan added. Still no BMs. Continue to monitor. Consider hypaque enema or adding laculose. (4) Pneumonia: Code(s): J18.9 - Pneumonia, unspecified organism Status: Acute Assessment and Plan: CXR showing patchy bilateral airspace disease, consistent with pneumonia and she was having fevers and BP soft. HoTN could be related to sedation but concern for septic shock. CT chest scan showing multiple pulmonary nodules without change. No obvious pulmonary infiltratives noted. BCx NGTD. Sputum negative. MRSA nasal swab negative. Consider bronchitis/tracheitis. She completed Azithromycin 06/30/21. Abx changed to Cefepime and Vanco and currently Day 8. Fever resolved and BP improved. Will stop abx now. (5) Acute exacerbation of chronic obstructive airways disease: Code(s): J44.1 - Chronic obstructive pulmonary disease with (acute) exacerbation Status: Acute Assessment and Plan: COPD exacerbation contributing to her respiratory failure. No wheezing. Continue steroids. Continue prn Nebs treatments. As above (6) CHF (congestive heart failure): Code(s): I50.9 - Heart failure, unspecified Status: Acute Assessment and Plan: BNP 2000. CT showing pulmonary nodules but no evidence of pulmonary edema. Echo showing EF 55-60% with Grade I diastolic dysfunction. No pulmonary HTN (but pulmonary arteries enlarged by CT). She clinically does not appear to be fluid overloaded. Doubt she has CHF. (7) History of pulmonary embolus (PE): Code(s): Z86.711 - Personal history of pulmonary embolism Status: Acute Assessment and Plan: Stable Continue Eliquis. (8) GERD (gastroesophageal reflux disease): Qualifiers: Esophagitis presence: esophagitis presence not specified Qualified Code(s): K21.9 - Gastro-esophageal reflux disease without esophagitis Code(s): K21.9 - Gastro-esophageal reflux disease without esophagitis Status: Chronic Assessment and Plan: Stable. Continue Protonix (9) Tobacco dependence: Code(s): F17.200 - Nicotine dependence, unspecified, uncomplicated Status: Chronic Assessment and Plan: Patient will be educated about benefits of smoking cessation when able (10) Iron deficiency a
[2021-07-04 09:02] LABS: Glucose Point of Care 108 mg/dl (65-105)
[2021-07-04] MEDS: FENTANYL 2,500MCG/NS250ML(*CRX 2,500 MCG/250 ML BAG 15 MCG IV CONT (09:13)
[2021-07-04] MEDS: DEXTROSE 5%/0.9% SOD CHL 1,000 ML 50 ML IV CONT (09:26)
[2021-07-04] MEDS: dexmedeTOMIDine 400 MCG/100 ML 400 MCG/100 ML BAG 13.45 MCG IV CONT ×3 (10:30→23:09)
--- NOTE | 2021-07-04 11:13 | PCNFU ---
Nutrition Follow-Up Complete: Inadequate Oral Intake as related to mechanical ventilation as evidenced by tube feedings. Goal: Meet estimated nutritional needs Patient has limited progress towards goal at this time. We will continue current diet order. Pt current nutrition is Vital AF 1.2 at 55 ml/hr over 22 hours. Last recorded weight is 53.8 kg, up from 46.4 kg on admit. Bowel Motility: No BM reported since 06/26 Labs Reviewed: Cr 0.4,BUN 31, Alb 2.6,Hgb 9.1,Hct 29.3 Meds Noted: Effexor, Precedex, Fentanyl, Protonix, Miralax, Dulcolax Suppository, Solu Medrol, Seroquel,Ditropan, Senokot, Reglan. Skin: WNL Additional Notes: Patient remains on mechanical vent. Patient continues to no have no BM. Tube feeding remain on hold. GI following. Tube feeding recommendations remain of Vital AF 1.2 at 55 ml/hr over 22 hours, providing 1452 kcals/91 gms protein/981 ml water. Free water flush 30 ml q 4 hours. Agree with diet orders. Monitoring: ICU rounds daily and reassessing every Wednesday and Wednesday.
[2021-07-04] MEDS: IRON SUCROSE COMPLEX 100 MG in SODIUM CHLORIDE 0.9% IV 50 ML 220 MG IVPB (11:21)
[2021-07-04 12:22] LABS: Glucose Point of Care 184 mg/dl (65-105)
[2021-07-04 14:24] LABS: Alveolar/Arterial O2 Gradient 88.5 mmHg; Base Excess ABG 9.4 mEq/l (+/-2.0); Fractional Inspired Oxygen 35 %; HCO3 ABG 36.8 mEq/l (22.0-26.0); Oxygen Content ABG 15.6 %vol (16.0-22.0); Oxygen Saturation ABG 95.8 % (95.0-100.0); Oxyhemoglobin 93.7 % THb (90.0-100.0); PO2 FiO2 Ratio Arterial Blood 2.43 %; Total Hemoglobin 11.8 g/dL (12.0-18.0); pH ABG 7.368 (7.350-7.450)
[2021-07-04 14:26] LABS: Device VENTILATOR; Modified Allen's Test Pass; PCO2 ABG 65.4 mmHg (35.0-45.0); Site Drawn RIGHT RADIAL
[2021-07-04 14:27] LABS: Arterial Blood Gas PEEP 5 cmH2O; Arterial Blood Gas Pressure Support 8 cmH2O; Arterial Blood Gas Vent Mode SPONTANEOUS
--- NOTE | 2021-07-04 15:01 | WPDGIPROGNO ---
Progress Note: A&P Assessment and Plan (1) Ileus: Code(s): K56.7 - Ileus, unspecified Status: Acute Assessment and Plan: I do hear bowel sounds. She obviously has gas in her small bowel and colon. Perhaps a stimulant such as Reglan will help mobilize that. At this time I do not see the amount of colonic distention that would require decompression colonoscopy, but we will check her daily. I will order Reglan 10 mg IV q.6 hours x4 doses. 07/03 the Reglan appears to have helped. Abdomen is flat. KUB shows air has passed. There is still more NG contents and I would expect. We will continue the Reglan for another day. 07/04 she tells me she is passing gas. She has not passed any stool yet. Reviewed today's KUB. There is a normal gas pattern. There is no distension and no excessive stool. (2) COPD exacerbation: Code(s): J44.1 - Chronic obstructive pulmonary disease with (acute) exacerbation Status: Acute Assessment and Plan: A chronic problem for which she was recently hospitalized and and for which she is now still on a ventilator. She is sedated with fentanyl and Precedex. so far weaning and extubation have not been successful. 07/04 Until today!. She is breathing comfortably, Recently extubated, and no longer on propofol. (3) Constipation: Code(s): K59.00 - Constipation, unspecified Status: Acute Assessment and Plan: 07/03 She is not truly constipated but to prevent obstipation or impaction I will give her Citrate of magnesium per NG tube today 07/04 she states that she does not feel constipated or uncomfortable. I personally reviewed her latest KUB and did not see any excess amount of stool. I think that with increased activity and in particular with oral feedings there will be more stimulation to the got and things should start moving on their own. Subjective Date/time seen: 07/04/21 15:01 She has been extubated this morning. She is alert. Denies any abdominal pain. She states that she has been passing gas Interval history: she has finally been extubated. I spoke to the mattress packer, Dr. Medina. she has not yet had a bowel movement. She states however that she is passing gas. Now that she is again on tube feedings and will be more active I think the gut will be more stimulated Exam Const: Nutritional Appearance: underweight GI: Inspection: other ( Flat) GI Palp: No abdominal tenderness and Yes No hepatosplenomegaly present Auscultation: normal bowel sounds Objective Data Vital Signs Vital Signs: Vital Signs - 24 hr 07/03/21 16:00 07/03/21 16:16 07/03/21 16:30 Temperature 37.1 C Pulse Rate 88 98 98 Respiratory Rate 22 H 22 H 22 H Blood Pressure 100/78 Pulse Oximetry 98 07/03/21 16:32 07/03/21 16:36 07/03/21 18:00 Temperature 37.1 C Pulse Rate 93 91 90 Respiratory Rate 22 H 22 H Blood Pressure 108/71 Pulse Oximetry 96 97 07/03/21 20:00 07/03/21 20:32 07/03/21 22:00 Temperature 37.2 C 37.3 C Pulse Rate 92 96 91 Respiratory Rate 22 H 22 H Blood Pressure 111/82 113/76 Pulse Oximetry 96 94 97 07/03/21 23:15 07/04/21 00:00 07/04/21 02:00 Temperature 37.4 C 37.4 C Pulse Rate 96 87 91 Respiratory Rate 22 H 22 H Blood Pressure 121/85 98/76 L Pulse Oximetry 96 96 97 07/04/21 02:21 07/04/21 04:00 07/04/21 05:44 Temperature 37.3 C Pulse Rate 96 90 92 Respiratory Rate 22 H Blood Pressure 103/76 Pulse Oximetry 96 96 96 07/04/21 06:00 07/04/21 08:00 07/04/21 08:03 Temperature 37.4 C 37.3 C Pulse Rate 92 99 96 Respiratory Rate 22 H 10 L Blood Pressure 127/85 116/91 H Pulse Oximetry 96 96 96 07/04/21 09:11 07/04/21 09:13 07/04/21 10:00 Temperature 37.3 C Pulse Rate 92 92 96 Respiratory Rate 10 L 10 L 10 L Blood Pressure 139/84 Pulse Oximetry 94 07/04/21 10:30 07/04/21 11:15 07/04/21 11:22 Temperature Pulse Rate 97 94 89 Respiratory Rate 12 8 L Blood Pressure
[2021-07-04 17:29] LABS: Glucose Point of Care 220 mg/dl (65-105)
[2021-07-04] MEDS: INSULIN ASPART (*BKC) 100 UNITS/ML SUB-Q (17:36)
[2021-07-04 20:01] LABS: Glucose Point of Care 175 mg/dl (65-105)
[2021-07-04] MEDS: LORazepam INJ (*CRX) 2 MG/ML VIAL 0.5 MG IV PUSH (22:58)
[2021-07-04] MEDS: DEXTROSE 5%/0.9% SOD CHL 1,000 ML 75 ML IV CONT (23:09)
[2021-07-04] MEDS: FLUTICASONE/SALMETEROL 115-21 MCG INHALER 1 PUFF 2 PUFF INHALATION (23:52)
[2021-07-05] VITALS (23 sets, daily range): BP systolic 121–175; BP diastolic 86–147; PULSE 64–109; RESP 14–26; TEMP 36.3–36.9; O2SAT 93–100
[2021-07-05] MEDS: IPRATROPIUM BR 0.02% INH SOLN 0.5 MG/2.5 ML VIAL INHALATION
[2021-07-05] MEDS: ALBUTEROL SULFATE NEB 2.5 MG/0.5 ML INH INHALATION (00:01)
[2021-07-05 00:09] LABS: Glucose Point of Care 164 mg/dl (65-105)
--- NOTE | 2021-07-05 00:11 | PC.NURSE ---
Pt disoriented, trying to climb out of bed, has increased RR and retractions. When asked if pt wants to be reintubated she says no, but again, pt can't answer basic orientation questions correctly and has difficulty following simple commands. Spoke with Daughter Maria Guadalupe Delgado and she states her mother always says she hates the ventilator and that it hurts but has always said before to do what you need to do so pt will stay a full code at this time. Respiratory is giving a breathing treatment and will attempt to place patient on bipap, although pt is pulling mask for breathing treatment off.
[2021-07-05] MEDS: MORPHINE SULFATE (*CRX) 2 MG/ML INJ IV PUSH ×2 (00:35→07:16)
[2021-07-05] MEDS: LORazepam INJ (*CRX) 2 MG/ML VIAL IV PUSH ×2 (00:35→07:16)
[2021-07-05 01:00] LABS: Alveolar/Arterial O2 Gradient 85.3 mmHg; Carboxyhemoglobin 0.3 % THb (0-2.0); Fractional Inspired Oxygen 32 %; HCO3 ABG 31.8 mEq/l (22.0-26.0); Methemoglobin ABG 0.2 %THb (0-1.5); Oxygen Content ABG 14.7 %vol (16.0-22.0); Oxyhemoglobin 91.3 % THb (90.0-100.0); PCO2 ABG 58.4 mmHg (35.0-45.0); PO2 ABG 74.5 mmHg (80.0-100.0); PO2 FiO2 Ratio Arterial Blood 2.33 %; Reduced Hemoglobin 8.2 %THb (0-5.0); Total Hemoglobin 11.4 g/dL (12.0-18.0); pH ABG 7.354 (7.350-7.450)
[2021-07-05 01:01] LABS: Device NASAL CANNULA; Modified Allen's Test Pass; Site Drawn RIGHT RADIAL
[2021-07-05] MEDS: OLANZapine 10 MG INJ VIAL 2.5 MG IM ×2 (01:46→04:08)
[2021-07-05] MEDS: dexmedeTOMIDine 400 MCG/100 ML 400 MCG/100 ML BAG 13.45 MCG IV CONT (04:00)
[2021-07-05] MEDS: CENTRAL LINE FLUSH 10 ML IV PUSH ×3 (04:22→22:46)
[2021-07-05 04:42] LABS: Basophils Percent Auto 0.3 % (0.2-1.2); Eosinophils Absolute Auto 0.1 K/mm3 (0-0.3); Eosinophils Percent Auto 0.7 % (0-4.4); Hematocrit 31.5 % (37.0-47.0); Hemoglobin 9.8 g/dL (12.0-15.0); Immature Granulocyte Absolute 0.03 K/mm3 (0.00-0.031); Immature Granulocyte Percent A 0.3 % (0-0.5); Lymphocytes Absolute Auto 1.25 K/mm3 (0.9-3.2); Lymphocytes Percent Auto 12.1 % (18.3-44.2); Mean Corpuscular HGB Conc 31.1 g/dl (32-36); Mean Corpuscular Hemoglobin 31.3 pg (26-34); Mean Corpuscular Volume 100.6 fl (80-100); Mean Platelet Volume 10.6 fl (7.4-10.4); Monocytes Absolute Auto 1.4 K/mm3 (0.1-0.6); Monocytes Percent Auto 13.8 % (2.6-8.5); Neutrophils Absolute Auto 7.6 K/mm3 (1.3-6.7); Neutrophils Percent Auto 72.8 % (45.5-73.1); Platelet Count Result 246 k/mm3 (150-375); Red Blood Count 3.13 M/mm3 (4.2-5.4); White Blood Count 10.4 K/mm3 (4.5-10.0)
[2021-07-05 04:51] LABS: Potassium 3.4 mmol/L (3.4-5.0)
[2021-07-05 05:33] LABS: Blood Urea Nitrogen 14 mg/dL (7-17); Calcium 8.2 mg/dL (8.4-10.2); Carbon Dioxide > 40 mmol/L (22-30); Chloride 97 mmol/L (98-107); Estimated CRCL calculation 142 ml/min; Estimated Glomerular Filt Rate > 60; Glucose 156 mg/dL (65-110); Magnesium 1.9 mg/dL (1.6-2.3); Phosphorus 4.8 mg/dL (2.5-4.5); Sodium 141 mmol/L (137-145)
[2021-07-05] MEDS: OLANZapine 10 MG INJ VIAL 5 MG IM (06:18)
[2021-07-05] MEDS: WATER, STERILE FOR INJECTION 10 ML VIAL XX (06:23)
[2021-07-05 06:29] LABS: Glucose Point of Care 135 mg/dl (65-105)
--- NOTE | 2021-07-05 09:10 | WPDINTPN ---
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 [employer] -remains on Precedex infusion -also added Seroquel (2) Ileus: Code(s): K56.7 - Ileus, unspecified Status: Acute Assessment and Plan: Patient has had 2 large bowel movements since 07/04/2021 -abdominal is less distended, -appreciate GI evaluation - contiue Reglan -lactic acid was normal Patient has received magnesium citrate, Dulcolax suppositories, and Amelia. 07/03: CT chest/ abd/pelvis: 1. No pulmonary emboli or acute cardiopulmonary findings. 2. Severe emphysema and hyperinflation. Left upper lobe scarring. 3. Tracheobronchial chondromalacia. 4. Generalized body wall, mesenteric fat stranding, edema. Periportal edema. 5. Large amount of ascending and transverse colonic stool and gas. 6. Possible rectosigmoid colonic colitis. Diarrhea. (3) Acute and chronic respiratory failure with hypercapnia: Code(s): J96.22 - Acute and chronic respiratory failure with hypercapnia Status: Acute Assessment and Plan: Patient has a baseline severe COPD and on home oxygen -presented with acute on chronic respiratory failure and failed BiPAP therapy in ER requiring intubation and mechanical ventilation -intubated 06/25/2021 -successfully extubated on 07/04/2021 -continue Solu-Medrol 60 IV q.day -continue bronchodilators - vancomycin and cefepime discontinued on 07/04/2021 -06/26/2021: Sputum and blood culture negative 07/03: CTA chest 1. No pulmonary emboli or acute cardiopulmonary findings. 2. Severe emphysema and hyperinflation. Left upper lobe scarring. 3. Tracheobronchial chondromalacia. - COVID PCR was negative on admission 06/26/2020 CT C/A/P IMPRESSION: 1. Multiple bilateral pulmonary nodules without significant change from prior examination allowing for differences of technique. No significant change to bilateral pulmonary nodules. 2: Severe emphysema. 3: Pulmonary arterial hypertension. 4: No acute abdominal abnormality. (4) Acute exacerbation of chronic obstructive airways disease: Code(s): J44.1 - Chronic obstructive pulmonary disease with (acute) exacerbation Status: Acute Assessment and Plan: Continue supplemental oxygen of 3 L that she takes at home -bronchodilators and steroids (5) GERD (gastroesophageal reflux disease): Qualifiers: Esophagitis presence: esophagitis presence not specified Qualified Code(s): K21.9 - Gastro-esophageal reflux disease without esophagitis Code(s): K21.9 - Gastro-esophageal reflux disease without esophagitis Status: Chronic Assessment and Plan: Continue PPI. (6) CHF (congestive heart failure): Code(s): I50.9 - Heart failure, unspecified Status: Acute Assessment and Plan: she has a BNP elevated but does not appear to be any significant volume overload she she received IV fluids due to low blood pressure diuretics on hold -diuresing well on her own with negative fluid balance (7) Pulmonary hypertension: Code(s): I27.20 - Pulmonary hypertension, unspecified Status: Acute Assessment and Plan: secondary to COPD (8) Sinus tachycardia: Code(s): R00.0 - Tachycardia, unspecified Status: Acute Assessment and Plan: Patient is hypertensive and tachycardic, will start metoprolol which is her home medication TSH is 0.311 which is lower than normal free T4 and T3 are normal (9) Constipation: Code(
--- NOTE | 2021-07-05 09:24 | PM.IMPN ---
Progress Note: A&P Assessment and Plan (1) Encephalopathy: Code(s): G93.40 - Encephalopathy, unspecified Status: Acute Assessment and Plan: Etiology unclear. Possible benzodiazepine and/or narcotic withdrawal as she is on Xanax and [place] at home. Schedule Xanax and Seroquel plus p.r.n. [place] added. (2) Ileus: Code(s): K56.7 - Ileus, unspecified Status: Acute Assessment and Plan: Clinically resolved 07/03: CT chest/ abd/pelvis: 1. No pulmonary emboli or acute cardiopulmonary findings. 2. Severe emphysema and hyperinflation. Left upper lobe scarring. 3. Tracheobronchial chondromalacia. 4. Generalized body wall, mesenteric fat stranding, edema. Periportal edema. 5. Large amount of ascending and transverse colonic stool and gas. 6. Possible rectosigmoid colonic colitis. Diarrhea. (3) Acute and chronic respiratory failure with hypercapnia: Code(s): J96.22 - Acute and chronic respiratory failure with hypercapnia Status: Acute Assessment and Plan: Patient has a baseline severe COPD and on home oxygen -presented with acute on chronic respiratory failure and failed BiPAP therapy in ER requiring intubation and mechanical ventilation -intubated 06/25/2021 -successfully extubated on 07/04/2021 -continue Solu-Medrol 60 IV q.day -continue bronchodilators - vancomycin and cefepime discontinued on 07/04/2021 -06/26/2021: Sputum and blood culture negative 07/03: CTA chest 1. No pulmonary emboli or acute cardiopulmonary findings. 2. Severe emphysema and hyperinflation. Left upper lobe scarring. 3. Tracheobronchial chondromalacia. - COVID PCR was negative on admission 06/26/2020 CT C/A/P IMPRESSION: 1. Multiple bilateral pulmonary nodules without significant change from prior examination allowing for differences of technique. No significant change to bilateral pulmonary nodules. 2: Severe emphysema. 3: Pulmonary arterial hypertension. 4: No acute abdominal abnormality. (4) Acute exacerbation of chronic obstructive airways disease: Code(s): J44.1 - Chronic obstructive pulmonary disease with (acute) exacerbation Status: Acute Assessment and Plan: Continue supplemental oxygen of 3 L that she takes at home -bronchodilators and steroids (5) GERD (gastroesophageal reflux disease): Qualifiers: Esophagitis presence: esophagitis presence not specified Qualified Code(s): K21.9 - Gastro-esophageal reflux disease without esophagitis Code(s): K21.9 - Gastro-esophageal reflux disease without esophagitis Status: Chronic Assessment and Plan: Continue PPI. (6) CHF (congestive heart failure): Code(s): I50.9 - Heart failure, unspecified Status: Acute Assessment and Plan: BNP elevated but does not appear to be any significant volume overload Received IV fluids due to low blood pressure Diuretics on hold (7) Pulmonary hypertension: Code(s): I27.20 - Pulmonary hypertension, unspecified Status: Acute Assessment and Plan: secondary to COPD (8) Sinus tachycardia: Code(s): R00.0 - Tachycardia, unspecified Status: Acute Assessment and Plan: Patient is hypertensive and tachycardic, will start metoprolol which is her home medication TSH is 0.311 free T4 and T3 are normal (9) Constipation: Code(s): K59.00 - Constipation, unspecified Status: Acute Assessment and Plan: Resolved (10) Hypotension: Code(s): I95.9 - Hypotension, unspecified Status: Acute Assessment and Plan: Resolved Possibly due to positive pressure ventilation Pressors discontinued since extubation (11) Fever: Code(s): R50.9 - Fever, unspecified Status: Acute Assessment and Plan: Resolved patient febrile earlier in the course her WBCs normal and procalcitonin level is low UA was unremarkable for UTI CT chest abdomen pelvis reviewed b
[2021-07-05 09:33] LABS: Appearance Urine Cloudy (Clear); Bilirubin Urine Negative (Negative); Blood Urine 3+ (Negative); Glucose Urine UA Negative (Negative); Ketones Urine Negative (Negative); Leukocyte Esterase Ur 1+ LEU/UL (NEGATIVE); Nitrate Urine Negative (Negative); Protein Urine Negative (Negative); Urobilinogen Urine Negative mg/dL (<2.0)
[2021-07-05 09:38] LABS: Add Urine Microscopic? YES; Color Urine Straw (Yellow); RBC Urine >75 /hpf (0-2); Specific Grav Ur 1.006 (1.001-1.035)
[2021-07-05 09:39] LABS: Bacteria Urine Trace /hpf; Mucus Urine Rare /lpf
[2021-07-05] MEDS: dexmedeTOMIDine 400 MCG/100 ML 400 MCG/100 ML BAG 16.14 MCG IV CONT ×3 (09:57→21:57)
[2021-07-05] MEDS: APIXABAN 5 MG TABLET PO ×2 (10:02→16:46)
[2021-07-05] MEDS: busPIRone HCL 10 MG TABLET PO ×2 (10:02→16:46)
[2021-07-05] MEDS: methylPREDNISolone SOD SUCC 125 MG VIAL 60 MG IV PUSH (10:03)
[2021-07-05] MEDS: SENNA/DOCUSATE SODIUM TABLET 1 TAB PO (10:03)
[2021-07-05] MEDS: polyethylene glycoL 3350 17 GM POWD.PACK FEED TUBE (10:04)
[2021-07-05] MEDS: METOPROLOL TARTRATE 25 MG TABLET PO ×2 (10:04→20:02)
[2021-07-05] MEDS: PANTOPRAZOLE SODIUM IV 40 MG VIAL IV PUSH ×2 (10:04→19:46)
[2021-07-05] MEDS: QUEtiapine FUMARATE 25 MG TABLET PO ×2 (10:06→19:46)
[2021-07-05] MEDS: ALPRAZolam (*CRX) 0.5 MG TABLET 1 MG PO ×3 (10:19→16:46)
[2021-07-05] MEDS: BISACODYL 10 MG SUPPOSITORY RECTAL (10:19)
[2021-07-05] MEDS: IRON SUCROSE COMPLEX 100 MG in SODIUM CHLORIDE 0.9% IV 50 ML 220 MG IVPB (10:46)
[2021-07-05 10:58] LABS: Ammonia < 9 umol/L (9-30)
[2021-07-05] MEDS: NICOTINE (*PBKC) 14 MG PATCH 1 PATCH TRANSDERM (11:43)
[2021-07-05 12:31] LABS: Glucose Point of Care 145 mg/dl (65-105)
[2021-07-05] MEDS: DEXTROSE 5%/0.9% SOD CHL 1,000 ML 75 ML IV CONT (12:36)
[2021-07-05 16:53] LABS: Glucose Point of Care 171 mg/dl (65-105)
[2021-07-05] MEDS: HYDROcodone/acetaminophen (*CRX) 5-325 MG TABLET 1 TAB PO (19:46)
[2021-07-05 20:09] LABS: Glucose Point of Care 156 mg/dl (65-105)
[2021-07-06] VITALS (21 sets, daily range): BP systolic 132–160; BP diastolic 65–100; PULSE 59–97; RESP 13–21; TEMP 36.2–36.6; O2SAT 94–100
[2021-07-06 01:02] LABS: Glucose Point of Care 127 mg/dl (65-105)
[2021-07-06] MEDS: DEXTROSE 5%/0.9% SOD CHL 1,000 ML 75 ML IV CONT ×2 (01:23→15:56)
[2021-07-06] MEDS: HYDROcodone/acetaminophen (*CRX) 5-325 MG TABLET 1 TAB PO ×4 (01:50→22:30)
[2021-07-06] MEDS: ALPRAZolam (*CRX) 0.5 MG TABLET 1 MG PO ×3 (04:50→20:16)
[2021-07-06] MEDS: dexmedeTOMIDine 400 MCG/100 ML 400 MCG/100 ML BAG 6.73 MCG IV CONT (04:51)
[2021-07-06 06:06] LABS: Basophils Percent Auto 0.2 % (0.2-1.2); Eosinophils Absolute Auto 0.2 K/mm3 (0-0.3); Eosinophils Percent Auto 1.7 % (0-4.4); Hematocrit 34.8 % (37.0-47.0); Hemoglobin 10.7 g/dL (12.0-15.0); Immature Granulocyte Absolute 0.03 K/mm3 (0.00-0.031); Immature Granulocyte Percent A 0.3 % (0-0.5); Lymphocytes Absolute Auto 1.53 K/mm3 (0.9-3.2); Lymphocytes Percent Auto 16.6 % (18.3-44.2); Mean Corpuscular HGB Conc 30.7 g/dl (32-36); Mean Corpuscular Hemoglobin 31.1 pg (26-34); Mean Corpuscular Volume 101.2 fl (80-100); Mean Platelet Volume 10.7 fl (7.4-10.4); Monocytes Percent Auto 10.9 % (2.6-8.5); Neutrophils Absolute Auto 6.5 K/mm3 (1.3-6.7); Neutrophils Percent Auto 70.3 % (45.5-73.1); Platelet Count Result 254 k/mm3 (150-375); Red Blood Count 3.44 M/mm3 (4.2-5.4); Red Cell Distribution Width 11.9 % (11.5-14.5); White Blood Count 9.2 K/mm3 (4.5-10.0)
[2021-07-06 06:26] LABS: Blood Urea Nitrogen 6 mg/dL (7-17); Calcium 7.9 mg/dL (8.4-10.2); Carbon Dioxide > 40 mmol/L (22-30); Chloride 94 mmol/L (98-107); Estimated CRCL calculation 139 ml/min; Estimated Glomerular Filt Rate > 60; Glucose 169 mg/dL (65-110); Potassium 3.4 mmol/L (3.4-5.0); Sodium 136 mmol/L (137-145)
[2021-07-06] MEDS: CENTRAL LINE FLUSH 10 ML IV PUSH ×3 (06:38→20:22)
[2021-07-06] MEDS: ALBUTEROL SULFATE NEB 2.5 MG/0.5 ML INH INHALATION ×4 (09:08→20:10)
[2021-07-06] MEDS: IPRATROPIUM BR 0.02% INH SOLN 0.5 MG/2.5 ML VIAL INHALATION ×4 (09:18→20:10)
[2021-07-06] MEDS: IRON SUCROSE COMPLEX 100 MG in SODIUM CHLORIDE 0.9% IV 50 ML 220 MG IVPB (09:23)
[2021-07-06 09:34] LABS: Glucose Point of Care 98 mg/dl (65-105)
[2021-07-06] MEDS: METOPROLOL TARTRATE 25 MG TABLET PO ×2 (11:38→20:16)
[2021-07-06] MEDS: SENNA/DOCUSATE SODIUM TABLET 1 TAB PO (11:38)
[2021-07-06] MEDS: NICOTINE (*PBKC) 14 MG PATCH 1 PATCH TRANSDERM (11:39)
[2021-07-06] MEDS: APIXABAN 5 MG TABLET PO ×2 (11:39→17:24)
[2021-07-06] MEDS: busPIRone HCL 10 MG TABLET PO ×2 (11:39→17:24)
[2021-07-06] MEDS: PANTOPRAZOLE SODIUM IV 40 MG VIAL IV PUSH ×2 (11:40→20:17)
[2021-07-06] MEDS: methylPREDNISolone SOD SUCC 125 MG VIAL 60 MG IV PUSH (11:40)
[2021-07-06] MEDS: polyethylene glycoL 3350 17 GM POWD.PACK FEED TUBE (11:40)
--- NOTE | 2021-07-06 11:42 | WPDGIPROGNO ---
Progress Note: A&P Assessment and Plan (1) Ileus: Code(s): K56.7 - Ileus, unspecified Status: Acute Assessment and Plan: I do hear bowel sounds. She obviously has gas in her small bowel and colon. Perhaps a stimulant such as Reglan will help mobilize that. At this time I do not see the amount of colonic distention that would require decompression colonoscopy, but we will check her daily. I will order Reglan 10 mg IV q.6 hours x4 doses. 07/03 the Reglan appears to have helped. Abdomen is flat. KUB shows air has passed. There is still more NG contents and I would expect. We will continue the Reglan for another day. 07/04 she tells me she is passing gas. She has not passed any stool yet. Reviewed today's KUB. There is a normal gas pattern. There is no distension and no excessive stool. 07/06 still passing gas. She did have 2 bowel movements since Wednesday. She is about to start swallow evaluation (2) COPD exacerbation: Code(s): J44.1 - Chronic obstructive pulmonary disease with (acute) exacerbation Status: Acute Assessment and Plan: A chronic problem for which she was recently hospitalized and and for which she is now still on a ventilator. She is sedated with fentanyl and Precedex. so far weaning and extubation have not been successful. 07/04 Until today!. She is breathing comfortably, Recently extubated, and no longer on propofol. 07/06 still extubated and benign shortness of breath (3) Constipation: Code(s): K59.00 - Constipation, unspecified Status: Acute Assessment and Plan: 07/03 She is not truly constipated but to prevent obstipation or impaction I will give her Citrate of magnesium per NG tube today 07/04 she states that she does not feel constipated or uncomfortable. I personally reviewed her latest KUB and did not see any excess amount of stool. I think that with increased activity and in particular with oral feedings there will be more stimulation to the got and things should start moving on their own. 07/06 it appears this is finally resolved. She will be at risk for chronic constipation however given her chronic use of narcotics at home (4) Protein calorie malnutrition: Code(s): E46 - Unspecified protein-calorie malnutrition Status: Acute Assessment and Plan: she had been receiving tube feedings, although these were intermittently held because of her ileus. She is going to have a swallow evaluation today. She is obviously underweight. Her albumin was 3. She also has lymphopenia all indicative of malnutrition. Hopefully she can begin eating soon Subjective Date/time seen: 07/06/21 11:42 Interval history: 07/04 she has finally been extubated. I spoke to the tumbler plater, Dr. Medina. she has not yet had a bowel movement. She states however that she is passing gas. 07/06 she has been having bowel movements the last 2 days. Also she tells me she is passing gas regularly. And G-tube feedings have been held. Swallow evaluation is to be done today. She denies abdominal pain Review of Systems Review of Systems: All systems reviewed & are unremarkable except as noted in HPI and below Exam Const: General: other ( sedated on ventilator) Nutritional Appearance: underweight GI: Inspection: other ( Flat) GI Palp: No abdominal tenderness and Yes No hepatosplenomegaly present Auscultation: normal bowel sounds Objective Data Vital Signs Vital Signs: Vital Signs - 24 hr 07/05/21 12:00 07/05/21 13:59 07/05/21 15:53 Temperature 36.9 C 36.6 C Pulse Rate 103 H 84 91 Respiratory Rate 21 H 20 22 H Blood Pressure 146/98 H 144/97 H Pulse Oximetry 97 98 07/05/21 16:00 07/05/21 18:00 07/05/21 20:00 Temperature 36.6 C 36.5 C 36.5 C Pulse Rate 81 67 71 Respiratory Rate 22 H 21 H 22 H Blood Pressure 121/107 H 146/91 H 154/96 H Pulse Oximetry 99 100 99 07/05/21 20:02 07/05/21 20:35 07/05/21 21:57 Temperature Pulse Rat
--- NOTE | 2021-07-06 12:11 | WPDINTPN ---
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 [place] -off Precedex -discontinued Seroquel (2) Ileus: Code(s): K56.7 - Ileus, unspecified Status: Acute Assessment and Plan: RESOLVED Patient has been having bowel movements since 07/04/2021 -appreciate GI evaluation and recommendation -continue docusate, MiraLax daily -p.r.n. Dulcolax suppository -lactic acid was normal Patient has received magnesium citrate, Reglan, Dulcolax suppositories, and enema 07/03: CT chest/ abd/pelvis: 1. No pulmonary emboli or acute cardiopulmonary findings. 2. Severe emphysema and hyperinflation. Left upper lobe scarring. 3. Tracheobronchial chondromalacia. 4. Generalized body wall, mesenteric fat stranding, edema. Periportal edema. 5. Large amount of ascending and transverse colonic stool and gas. 6. Possible rectosigmoid colonic colitis. Diarrhea. (3) Acute and chronic respiratory failure with hypercapnia: Code(s): J96.22 - Acute and chronic respiratory failure with hypercapnia Status: Acute Assessment and Plan: Patient has a baseline severe COPD and on home oxygen -presented with acute on chronic respiratory failure and failed BiPAP therapy in ER requiring intubation and mechanical ventilation -intubated 06/25/2021 -successfully extubated on 07/04/2021 -continue Solu-Medrol 60 IV q.day, will switch to p.o. and taper when patient able to take oral diet -continue bronchodilators - vancomycin and cefepime discontinued on 07/04/2021 -06/26/2021: Sputum and blood culture negative 07/03: CTA chest 1. No pulmonary emboli or acute cardiopulmonary findings. 2. Severe emphysema and hyperinflation. Left upper lobe scarring. 3. Tracheobronchial chondromalacia. - COVID PCR was negative on admission 06/26/2020 CT C/A/P IMPRESSION: 1. Multiple bilateral pulmonary nodules without significant change from prior examination allowing for differences of technique. No significant change to bilateral pulmonary nodules. 2: Severe emphysema. 3: Pulmonary arterial hypertension. 4: No acute abdominal abnormality. (4) Acute exacerbation of chronic obstructive airways disease: Code(s): J44.1 - Chronic obstructive pulmonary disease with (acute) exacerbation Status: Acute Assessment and Plan: Continue supplemental oxygen of 3 L that she takes at home -bronchodilators and steroids (5) GERD (gastroesophageal reflux disease): Qualifiers: Esophagitis presence: esophagitis presence not specified Qualified Code(s): K21.9 - Gastro-esophageal reflux disease without esophagitis Code(s): K21.9 - Gastro-esophageal reflux disease without esophagitis Status: Chronic Assessment and Plan: Continue PPI. (6) CHF (congestive heart failure): Code(s): I50.9 - Heart failure, unspecified Status: Acute Assessment and Plan: she has a BNP elevated but does not appear to be any significant volume overload she she received IV fluids due to low blood pressure diuretics on hold -diuresing well on her own with negative fluid balance (7) Pulmonary hypertension: Code(s): I27.20 - Pulmonary hypertension, unspecified Status: Acute Assessment and Plan: secondary to COPD (8) Sinus tachycardia: Code(s): R00.0 - Tachycardia, unspecified Status: Acute Assessment and Plan: Patient is hypertensive and tachycardic, will start metoprolol which is her home medication TSH is 0.311 which is lower than no
--- NOTE | 2021-07-06 12:58 | PCSTNOTE ---
[employer] attempted bedside swallow evaluation on 07/06/21 at 12:45 PM. Patient aroused and explained purpose of evaluation. Patient refused and requested [employer] come back tomorrow.
--- NOTE | 2021-07-06 13:14 | PCFNICU ---
ICU Rounding Note: Pt current nutrition is NPO. Last recorded weight is 53.5 kg, up from 46.4 kg on admit. Bowel Motility: +BM reported 07/06 Labs Reviewed:Cr 0.4,BUN 31, Alb 2.6,Hgb 9.1,Hct 29.3 Meds Noted:Senokot, Miralax, Protonix, Atrovent, [place], Xanax, Eliquis, Buspar, Dextrose, Senokot, Lopressor, Solu Medrol. Skin: WNL Additional Notes: Patient extubated on 07/04. +BM started 07/04. Patient to have bedside swallow today. Will monitor for further diet orders. Following daily in ICU rounds and reassessing every 3 days.
--- NOTE | 2021-07-06 13:47 | PM.IMPN ---
Progress Note: A&P Assessment and Plan (1) Encephalopathy: Code(s): G93.40 - Encephalopathy, unspecified Status: Acute Assessment and Plan: Likely benzodiazepine and/or narcotic withdrawal as she is on Xanax and [place] at home. Continue scheduled Xanax plus p.r.n. [place] added. She REFUSED swallowing eval 07/06 AM and is to try again 07/07 (2) Ileus: Code(s): K56.7 - Ileus, unspecified Status: Acute Assessment and Plan: Clinically resolved 07/03: CT chest/ abd/pelvis: 1. No pulmonary emboli or acute cardiopulmonary findings. 2. Severe emphysema and hyperinflation. Left upper lobe scarring. 3. Tracheobronchial chondromalacia. 4. Generalized body wall, mesenteric fat stranding, edema. Periportal edema. 5. Large amount of ascending and transverse colonic stool and gas. 6. Possible rectosigmoid colonic colitis. Diarrhea. (3) Acute and chronic respiratory failure with hypercapnia: Code(s): J96.22 - Acute and chronic respiratory failure with hypercapnia Status: Acute Assessment and Plan: Patient has a baseline severe COPD and on home oxygen -presented with acute on chronic respiratory failure and failed BiPAP therapy in ER requiring intubation and mechanical ventilation -intubated 06/25/2021 -successfully extubated on 07/04/2021 -continue Solu-Medrol 60 IV q.day -continue bronchodilators - vancomycin and cefepime discontinued on 07/04/2021 -06/26/2021: Sputum and blood culture negative 07/03: CTA chest 1. No pulmonary emboli or acute cardiopulmonary findings. 2. Severe emphysema and hyperinflation. Left upper lobe scarring. 3. Tracheobronchial chondromalacia. - COVID PCR was negative on admission 06/26/2020 CT C/A/P IMPRESSION: 1. Multiple bilateral pulmonary nodules without significant change from prior examination allowing for differences of technique. No significant change to bilateral pulmonary nodules. 2: Severe emphysema. 3: Pulmonary arterial hypertension. 4: No acute abdominal abnormality. (4) Acute exacerbation of chronic obstructive airways disease: Code(s): J44.1 - Chronic obstructive pulmonary disease with (acute) exacerbation Status: Acute Assessment and Plan: Continue supplemental oxygen of 3 L that she takes at home -bronchodilators and steroids (5) GERD (gastroesophageal reflux disease): Qualifiers: Esophagitis presence: esophagitis presence not specified Qualified Code(s): K21.9 - Gastro-esophageal reflux disease without esophagitis Code(s): K21.9 - Gastro-esophageal reflux disease without esophagitis Status: Chronic Assessment and Plan: Continue PPI. (6) CHF (congestive heart failure): Code(s): I50.9 - Heart failure, unspecified Status: Acute Assessment and Plan: BNP elevated but does not appear to be any significant volume overload Received IV fluids due to low blood pressure Diuretics on hold (7) Pulmonary hypertension: Code(s): I27.20 - Pulmonary hypertension, unspecified Status: Acute Assessment and Plan: secondary to COPD (8) Sinus tachycardia: Code(s): R00.0 - Tachycardia, unspecified Status: Acute Assessment and Plan: Patient is hypertensive and tachycardic, will start metoprolol which is her home medication TSH is 0.311 free T4 and T3 are normal (9) Constipation: Code(s): K59.00 - Constipation, unspecified Status: Acute Assessment and Plan: Resolved (10) Hypotension: Code(s): I95.9 - Hypotension, unspecified Status: Acute Assessment and Plan: Resolved Possibly due to positive pressure ventilation Pressors discontinued since extubation (11) Fever: Code(s): R50.9 - Fever, unspecified Status: Acute Assessment and Plan: Resolved patient febrile earlier in the course her WBCs normal and procalcitonin level is low UA was unremarkable for UTI
[2021-07-06 14:42] LABS: Glucose Point of Care 156 mg/dl (65-105)
--- NOTE | 2021-07-06 15:07 | PC.NURSE ---
This patient, Sharifa Mosquera, was transferred to [facility] on 07/06/21 at 1507. Personal belongings sent with patient, and items from ICU safe were handed to receiving RN. Report given to Aby CRUZ. Appropriate documentation and medications sent with patient.
[2021-07-06 17:40] LABS: Glucose Point of Care 155 mg/dl (65-105)
--- NOTE | 2021-07-06 19:02 | PC.NURSE ---
This patient, Sharifa Mosquera, was received from [icu-[id number] ] on 07/06/21 at 1520. Patient/family oriented to unit policies and routines
[2021-07-06] MEDS: FLUTICASONE/SALMETEROL 115-21 MCG INHALER 1 PUFF 2 PUFF INHALATION (20:10)
[2021-07-06] MEDS: VENLAFAXINE HCL 75 MG TABLET FEED TUBE (20:22)
[2021-07-06 23:11] LABS: Glucose Point of Care 132 mg/dl (65-105)
[2021-07-07] VITALS (20 sets, daily range): BP systolic 120–155; BP diastolic 77–94; PULSE 55–98; RESP 16–20; TEMP 36.1–36.8; O2SAT 91–100
[2021-07-07] MEDS: ALBUTEROL SULFATE NEB 2.5 MG/0.5 ML INH INHALATION ×6 (00:19→20:16)
[2021-07-07] MEDS: IPRATROPIUM BR 0.02% INH SOLN 0.5 MG/2.5 ML VIAL INHALATION ×6 (00:19→20:16)
[2021-07-07] MEDS: ALPRAZolam (*CRX) 0.5 MG TABLET 1 MG PO ×3 (03:29→20:21)
[2021-07-07] MEDS: HYDROcodone/acetaminophen (*CRX) 5-325 MG TABLET 1 TAB PO ×3 (03:30→16:15)
[2021-07-07] MEDS: DEXTROSE 5%/0.9% SOD CHL 1,000 ML 75 ML IV CONT (03:30)
[2021-07-07] MEDS: CENTRAL LINE FLUSH 10 ML IV PUSH ×3 (05:13→20:26)
[2021-07-07 05:43] LABS: Glucose Point of Care 75 mg/dl (65-105)
[2021-07-07] MEDS: FLUTICASONE/SALMETEROL 115-21 MCG INHALER 1 PUFF 2 PUFF INHALATION ×2 (08:16→20:16)
[2021-07-07] MEDS: UMECLIDINIUM BROMIDE 62.5 MCG ELLIPTA 1 PUFF INHALATION (08:18)
--- NOTE | 2021-07-07 09:19 | PCSTNOTE ---
Please refer to the Bedside Swallow Evaluation in the EMR. Please note, silent aspiration cannot be ruled out at bedside.
[2021-07-07] MEDS: NICOTINE (*PBKC) 14 MG PATCH 1 PATCH TRANSDERM (09:34)
[2021-07-07] MEDS: busPIRone HCL 10 MG TABLET PO ×2 (09:36→16:16)
[2021-07-07] MEDS: SENNA/DOCUSATE SODIUM TABLET 1 TAB PO (09:36)
[2021-07-07] MEDS: APIXABAN 5 MG TABLET PO ×2 (09:36→16:16)
[2021-07-07] MEDS: polyethylene glycoL 3350 17 GM POWD.PACK FEED TUBE (09:37)
[2021-07-07] MEDS: methylPREDNISolone SOD SUCC 125 MG VIAL 60 MG IV PUSH (09:37)
[2021-07-07] MEDS: PANTOPRAZOLE SODIUM IV 40 MG VIAL IV PUSH ×2 (09:37→20:20)
[2021-07-07] MEDS: METOPROLOL TARTRATE 25 MG TABLET PO ×2 (09:37→20:21)
[2021-07-07] MEDS: VENLAFAXINE HCL 75 MG TABLET FEED TUBE ×2 (11:54→20:21)
[2021-07-07 11:59] LABS: Glucose Point of Care 157 mg/dl (65-105)
--- NOTE | 2021-07-07 14:34 | PM.IMPN ---
Progress Note: A&P Assessment and Plan (1) Septic shock: Code(s): A41.9 - Sepsis, unspecified organism; R65.21 - Severe sepsis with septic shock Status: Acute Assessment and Plan: BP elevated on admission but dropped to 69/55 on 06/26/21. Could be related to the changes in her sedation but concern for septic shock since fevers occurring at the same time. WBC at 11K, procalcitonin 0.1. BCx NGTD. Sputum negative. MRSA nasal swab negative. CT Abd/Pelvis negative for acute pathology. Etiology would most likely be from her Bronchitis/Tracheitis?; PNA ruled out. Abx advanced on 06/27 and symptoms improved. Phenylephrine was required but was weaned off successfully on 06/27/21 (required it briefly again but felt related to sedation). She completed a course of abx. (2) Acute and chronic respiratory failure with hypercapnia: Code(s): J96.22 - Acute and chronic respiratory failure with hypercapnia Status: Acute Assessment and Plan: Patient has baseline severe COPD on home oxygen. She presents with SOB and CXR showing possible PNA. ABG 7.29/83/85 on admission so BiPAP started. Her condition worsened requiring intubation on 06/25/21. Started on Abx and steroid. Able to be weaned off ventilator and currently back down to 3L O2 which is her baseline use. (3) Encephalopathy: Code(s): G93.40 - Encephalopathy, unspecified Status: Acute Assessment and Plan: Likely benzodiazepine and/or narcotic withdrawal as she is on Xanax and [place] at home but was on Fentanyl and Versed here. Continue scheduled Xanax plus p.r.n. and [place]. She REFUSED swallowing eval 07/06 AM but did well with swallow evaluation today. Start diet. Stop IV fluids. Remove Boss. Continue PT/OT (4) Ileus: Code(s): K56.7 - Ileus, unspecified Status: Acute Assessment and Plan: 07/03: CT chest/ abd/pelvis showing a large amount of ascending and transverse colonic stool and gas and possible rectosigmoid colonic colitis. Treated with bowel regiment with improvement. (5) Acute exacerbation of chronic obstructive airways disease: Code(s): J44.1 - Chronic obstructive pulmonary disease with (acute) exacerbation Status: Acute Assessment and Plan: COPD exacerbation contributing to her respiratory failure. Continue supplemental oxygen of 3 L that she takes at home -bronchodilators and steroids (6) CHF (congestive heart failure): Code(s): I50.9 - Heart failure, unspecified Status: Acute Assessment and Plan: BNP 1999. CT showing pulmonary nodules but no evidence of pulmonary edema. Echo showing EF 55-60% with Grade I diastolic dysfunction. No pulmonary HTN (but pulmonary arteries enlarged by CT). She clinically does not appear to be fluid overloaded. CHF ruled out. (7) GERD (gastroesophageal reflux disease): Qualifiers: Esophagitis presence: esophagitis presence not specified Qualified Code(s): K21.9 - Gastro-esophageal reflux disease without esophagitis Code(s): K21.9 - Gastro-esophageal reflux disease without esophagitis Status: Chronic Assessment and Plan: Continue PPI. (8) Pulmonary hypertension: Code(s): I27.20 - Pulmonary hypertension, unspecified Status: Acute Assessment and Plan: secondary to COPD (9) Sinus tachycardia: Code(s): R00.0 - Tachycardia, unspecified Status: Acute Assessment and Plan: Patient is hypertensive and tachycardic, will start metoprolol which is her home medication TSH is 0.311 free T4 and T3 are normal (10) Hyperglycemia: Code(s): R73.9 - Hyperglycemia, unspecified Status: Acute Assessment and Plan: continue sliding scale insulin, Subjective Date/time seen: 07/07/21 14:34 Interval history: 56yo female with chronic respiratory failure, COPD, [place] and on going tobacco use here for SOB. Resuming care. Chart reviewed. Patient has b
[2021-07-07 17:38] LABS: Glucose Point of Care 194 mg/dl (65-105)
[2021-07-08] VITALS (10 sets, daily range): BP systolic 144–152; BP diastolic 81–85; PULSE 82–97; RESP 16–20; TEMP 36.6–36.9; O2SAT 98–100
[2021-07-08 00:09] LABS: Glucose Point of Care 137 mg/dl (65-105)
[2021-07-08] MEDS: HYDROcodone/acetaminophen (*CRX) 5-325 MG TABLET 1 TAB PO ×3 (00:15→14:15)
[2021-07-08] MEDS: IPRATROPIUM BR 0.02% INH SOLN 0.5 MG/2.5 ML VIAL INHALATION ×3 (03:02→12:50)
[2021-07-08] MEDS: ALBUTEROL SULFATE NEB 2.5 MG/0.5 ML INH INHALATION ×3 (03:02→12:50)
[2021-07-08] MEDS: ALPRAZolam (*CRX) 0.5 MG TABLET 1 MG PO ×2 (04:04→11:59)
[2021-07-08] MEDS: CENTRAL LINE FLUSH 10 ML IV PUSH (05:16)
[2021-07-08 06:41] LABS: Anion Gap 1 mmol/L (8-16); Blood Urea Nitrogen 6 mg/dL (7-17); Calcium 8.2 mg/dL (8.4-10.2); Carbon Dioxide 38 mmol/L (22-30); Chloride 98 mmol/L (98-107); Estimated CRCL calculation 94 ml/min; Estimated Glomerular Filt Rate > 60; Glucose 93 mg/dL (65-110); Potassium 3.2 mmol/L (3.4-5.0); Sodium 137 mmol/L (137-145)
[2021-07-08] MEDS: POTASSIUM CHLORIDE 20 MEQ TABLET 40 MEQ PO (08:11)
[2021-07-08] MEDS: polyethylene glycoL 3350 17 GM POWD.PACK BY MOUTH (08:14)
[2021-07-08] MEDS: PANTOPRAZOLE SODIUM IV 40 MG VIAL IV PUSH (08:14)
[2021-07-08] MEDS: busPIRone HCL 10 MG TABLET PO (08:15)
[2021-07-08] MEDS: NICOTINE (*PBKC) 14 MG PATCH 1 PATCH TRANSDERM (08:15)
[2021-07-08] MEDS: APIXABAN 5 MG TABLET PO (08:15)
[2021-07-08] MEDS: SENNA/DOCUSATE SODIUM TABLET 1 TAB PO (08:15)
[2021-07-08] MEDS: METOPROLOL TARTRATE 25 MG TABLET PO (08:15)
[2021-07-08] MEDS: VENLAFAXINE HCL 75 MG TABLET FEED TUBE (08:16)
[2021-07-08] MEDS: predniSONE 20 MG TABLET 40 MG PO (08:16)
[2021-07-08] MEDS: FLUTICASONE/SALMETEROL 115-21 MCG INHALER 1 PUFF 2 PUFF INHALATION (08:39)
[2021-07-08] MEDS: UMECLIDINIUM BROMIDE 62.5 MCG ELLIPTA 1 PUFF INHALATION (08:39)
--- NOTE | 2021-07-08 10:59 | PM.DS ---
DS: Admitting Diagnosis Discharge Date 07/08/21 Admitting Diagnosis Shortness of breath DS: Discharge Diagnosis Discharge Diagnosis (1) Septic shock: Code(s): A41.9 - Sepsis, unspecified organism; R65.21 - Severe sepsis with septic shock Status: Acute Assessment and Plan: BP elevated on admission but dropped to 69/55 on 06/26/21. Could be related to the changes in her sedation or from the positive pressure but concern for septic shock since fevers occurred at the same time. WBC was 11K, procalcitonin 0.1. BCx negative. Sputum negative. MRSA nasal swab negative. CT Abd/Pelvis negative for acute pathology. Etiology would most likely be from her Bronchitis/Tracheitis?; PNA ruled out. Phenylephrine was required but was weaned off successfully on 06/27/21 (required it briefly again 07/02- but felt related to sedation). Abx advanced on 06/27 and symptoms improved. No recurrent fevers. She completed a course of abx. (2) Acute and chronic respiratory failure with hypercapnia: Code(s): J96.22 - Acute and chronic respiratory failure with hypercapnia Status: Acute Assessment and Plan: Patient has baseline severe COPD on home oxygen. She presents with SOB and CXR showing possible PNA. ABG 7.29/83/85 on admission so BiPAP started. Her condition worsened requiring intubation on 06/25/21. Started on Abx and steroid. Able to be weaned off ventilator and currently back down to 3L O2 which is her baseline use. Speech therapy evaluated the patient and felt aspiration was unlikely. PT/OT ordered and she has been up walking with a walker 200 feet. She did get dyspneic with exertion but pulse ox was 88-90% on her 3L. (3) Encephalopathy: Code(s): G93.40 - Encephalopathy, unspecified Status: Acute Assessment and Plan: Likely benzodiazepine and/or narcotic withdrawal as she is on Xanax and [place] at home. Mental status improved. We resumed scheduled Xanax plus p.r.n. and [place]. She did well with swallow evaluation and diet started. (4) Ileus: Code(s): K56.7 - Ileus, unspecified Status: Acute Assessment and Plan: No BM for many days. KUB 07/01 showing dilated small and large bowel consistent with ileus. CT chest/abd/pelvis 07/02 showing a large amount of ascending and transverse colonic stool and gas and possible rectosigmoid colonic colitis. Treated with bowel regiment with improvement. Doubtful she had colitis but did complete a course of abx. (5) Acute exacerbation of chronic obstructive airways disease: Code(s): J44.1 - Chronic obstructive pulmonary disease with (acute) exacerbation Status: Acute Assessment and Plan: COPD exacerbation contributing to her respiratory failure. As above. She was weaned back to her chronic supplemental oxygen of 3 L that she takes at home. (6) CHF (congestive heart failure): Code(s): I50.9 - Heart failure, unspecified Status: Acute Assessment and Plan: BNP 1999. CT showing pulmonary nodules but no evidence of pulmonary edema. Echo showing EF 55-60% with Grade I diastolic dysfunction. No pulmonary HTN (but pulmonary arteries enlarged by CT). She clinically does not appear to be fluid overloaded. CHF exacerbation ruled out. (7) GERD (gastroesophageal reflux disease): Qualifiers: Esophagitis presence: esophagitis presence not specified Qualified Code(s): K21.9 - Gastro-esophageal reflux disease without esophagitis Code(s): K21.9 - Gastro-esophageal reflux disease without esophagitis Status: Chronic Assessment and Plan: Remained stable. We continued PPI. DS: Summary Hospital Course Reason for hospitalization: 56yo female with chronic respiratory failure, COPD, [place] and on going tobacco use here for SOB. Please see H&P for details. Hospital Course: Please see above for details of hospital course Status at Discharge Cognitive/behavioral status at discharge: Stable
--- NOTE | 2021-07-08 14:48 | PC.NURSE ---
On 07/08/21, the student, Peri Bass, provided care and completed [facility] documentation on this patient. I have reviewed the student's documentation and agree with the findings.
== END 2021-07-08 15:30 | disposition home or self-care (01) | DRG 130 ==
LOC: ANHED 17:54 → ANHICU 21:05 → ANH3MEDSUR 07-08 11:18 → ANHICU 07-09 09:39
PROVIDERS: Internal Medicine; Admitting Provider Internal Medicine; Emergency Provider Emergency Medicine; PCP Family Medicine; Visit Provider Internal Medicine
DX: J96.22 Acute and chronic respiratory failure with hypercapnia (principal); A41.9 Sepsis, unspecified organism; R65.21 Severe sepsis with septic shock; I50.9 Heart failure, unspecified; F41.9 Anxiety disorder, unspecified; M19.90 Unspecified osteoarthritis, unspecified site; F32.A Depression, unspecified; J43.9 Emphysema, unspecified; K21.9 Gastro-esophageal reflux disease without esophagitis; Z86.711 Personal history of pulmonary embolism; C10.4 Malignant neoplasm of branchial cleft; F17.210 Nicotine dependence, cigarettes, uncomplicated; Z99.81 Dependence on supplemental oxygen; Z79.01 Long term (current) use of anticoagulants; J96.01 Acute respiratory failure with hypoxia; I27.23 Pulmonary hypertension due to lung diseases and hypoxia; R00.0 Tachycardia, unspecified; G47.33 Obstructive sleep apnea (adult) (pediatric); K59.00 Constipation, unspecified; J04.10 Acute tracheitis without obstruction; Z20.822 Contact with and (suspected) exposure to COVID-19; R73.9 Hyperglycemia, unspecified; E87.4 Mixed disorder of acid-base balance; K56.7 Ileus, unspecified; G93.40 Encephalopathy, unspecified; E46 Unspecified protein-calorie malnutrition; Z68.1 Body mass index [BMI] 19.9 or less, adult
CPT/HCPCS: 31500; 36415; 36569; 36600; 51701; 51702; 71045; 71046; 71250; 71275; 74018; 74019; 74176; 74177; 80048; 80053; 80069; 80202; 81001; 82140; 82375; 82607; 82728; 82746; 82805; 82948; 83050; 83540; 83550; 83605; 83735; 83880; 84100; 84145; 84439; 84443; 84480; 85025; 85027; 85610; 85730; 87040; 87070; 87081; 87205; 87804; 87899; 92610; 93005; 93306; 94002; 94003; 94640; 96365; 96366; 96367; 96368; 96375; 96376; 97110; 97116; 97161; 97166; 99291; A9270; C1751; C9113; C9803; G0378; G0379; J0131; J0330; J0456; J0692; J0696; J1756; J1815; J1940; J2060; J2250; J2270; J2370; J2704; J2765; J2930; J3010; J3370; J7030; J7040; J7042; J7050; J7060; J7512; Q9967; U0003; U0005

== ENCOUNTER 2022-01-30 19:59 | Emergency (ER) | payer OTHER, SELFPAY ==
--- NOTE | ~2022-01-30 | XR_ITS ---
XR knee LT min 4V 01/30/2022 20:27 Indication: Swelling and decreased range of motion Procedure: 4 views left knee Comparison: 11/03/2013 Findings: There is a longitudinally oriented distal femoral fracture extending to the articular surfa ce.r the fracture is displaced approximately 8 mm at the inferior margin. There is a large joint effu melany. Osteopenia. Impression: 1: Displaced longitudinally oriented intra-articular fracture distal aspect of the femur extending to the articular surface. 2: Large joint effusion. Reviewed, dictated and finalized at location A. Impression: 1: Displaced longitudinally oriented intra-articular fracture distal aspect of the femur extending to the articular surface. 2: Large joint effusion.
--- NOTE | ~2022-01-30 | XR_ITS ---
XR ankle LT min 3V 01/30/2022 20:27 Indication: Left ankle pain after recent fall Procedure: 4 views left ankle Comparison: No prior studies for comparison. Findings: There is a minimally displaced oblique distal fibular fracture with adjacent soft tissue sw elling. Osteopenia. No definite abnormality of the talar dome. Small degenerative calcaneal enthesoph yte at the plantar surface. Small avulsion fracture lateral margin of the talus. Impression: 1: Minimally displaced oblique distal fibular fracture. 2: Avulsion fracture lateral margin of the talus. Reviewed, dictated and finalized at location A. Impression: 1: Minimally displaced oblique distal fibular fracture. 2: Avulsion fracture lateral margin of the talus.
--- NOTE | ~2022-01-30 | CT_ITS ---
EXAMINATION: CT knee LT wo con DATE: 01/30/2022 21:16 INDICATION: Left knee fracture TECHNIQUE: Computed tomography (CT) of the left knee was performed without intravenous contrast. The dose-length product was 641.20 mGy-cm. Automated exposure control and iterative reconstruction techni que were employed. COMPARISON: Left knee series dated 01/30/2022 FINDINGS: There is a comminuted intra-articular fracture of the distal aspect of the left tibia with approximately 8 mm lateral and 3 mm posterior displacement. The fracture extends to the intercondylar notch. Large joint effusion. There are degenerative changes of the knee. No fracture of the tibia or fibula are identified. IMPRESSION: 1. Comminuted displaced distal femoral fracture with lateral and posterior displacement. 2: Large joint effusion. Reviewed, dictated and finalized at location A. IMPRESSION: 1. Comminuted displaced distal femoral fracture with lateral and posterior disp lacement. 2: Large joint effusion.
[2022-01-30 19:56] VITALS: BP 129/95; PULSE 93; RESP 18; O2SAT 100
[2022-01-30 20:06] VITALS: TEMP 36.7
[2022-01-30] MEDS: HYDROcodone/acetaminophen (*CRX) 5-325 MG TABLET 1 TAB PO (20:36)
[2022-01-30 22:10] LABS: Basophils Percent Auto 0.4 % (0.2-1.2); Eosinophils Absolute Auto 0.1 K/mm3 (0-0.3); Eosinophils Percent Auto 0.8 % (0-4.4); Hematocrit 33.7 % (37.0-47.0); Hemoglobin 10.5 g/dL (12.0-15.0); Immature Granulocyte Absolute 0.03 K/mm3 (0.00-0.031); Immature Granulocyte Percent A 0.3 % (0-0.5); Lymphocytes Absolute Auto 2.21 K/mm3 (0.9-3.2); Lymphocytes Percent Auto 21.4 % (18.3-44.2); Mean Corpuscular HGB Conc 31.2 g/dl (32-36); Mean Corpuscular Hemoglobin 29.6 pg (26-34); Mean Corpuscular Volume 94.9 fl (80-100); Monocytes Absolute Auto 1.2 K/mm3 (0.1-0.6); Monocytes Percent Auto 11.2 % (2.6-8.5); Neutrophils Absolute Auto 6.8 K/mm3 (1.3-6.7); Neutrophils Percent Auto 65.9 % (45.5-73.1); Platelet Count Result 348 k/mm3 (150-375); Red Blood Count 3.55 M/mm3 (4.2-5.4); Red Cell Distribution Width 13.2 % (11.5-14.5); White Blood Count 10.3 K/mm3 (4.5-10.0)
[2022-01-30 22:12] VITALS: BP 135/99; PULSE 90; RESP 18; O2SAT 100
--- NOTE | 2022-01-30 22:14 | ED.GENADULT ---
HPI - General Adult General Chief complaint: Extremity Injury, Lower Stated complaint: LEG PAIN AFTER FALL LAST WEEK Time Seen by Provider: 01/30/22 20:10 Source: patient Mode of arrival: EMS Limitations: no limitations History of Present Illness HPI narrative: 56-year-old with a history of COPD on 3 L oxygen at home, history of PE on Eliquis here with complaints of left knee and ankle pain. Patient states that she fell about 5 days ago at home. She states she lost her balance and fell on her knee. She denies any head and neck injuries. She states since this morning she has been having more pain in the knee and is unable to walk. She denies any chest pain, unusual shortness of breath. Onset (ago): day(s) (5) Location: lower extremity Radiation: non-radiation Severity: moderate Quality: aching Pain Consistency: constant Relieving factors: immobilization Exacerbating factors: movement and other (Weightbearing) Associated symptoms: denies other symptoms Related Data Home Medications Medication Instructions Recorded Confirmed apixaban 5 mg tablet (Eliquis) 5 mg PO BID 03/06/21 06/26/21 budesonide-formoterol HFA 160 2 puff inhalation BID 03/06/21 06/26/21 mcg-4.5 mcg/actuation aerosol inhaler (Symbicort) buspirone 10 mg tablet 10 mg PO BID 03/06/21 06/26/21 gabapentin 300 mg capsule 300 mg PO TID 03/06/21 06/26/21 metoprolol tartrate 25 mg tablet 25 mg PO BID 03/06/21 06/26/21 umeclidinium 62.5 mcg/actuation 1 inh inhalation DAILY 03/06/21 06/26/21 blister powder for inhalation (Incruse Ellipta) venlafaxine 150 mg 150 mg PO DAILY 03/06/21 06/26/21 capsule,extended release 24 hr hydrocodone 5 mg-acetaminophen 325 1 tablet PO Q6H PRN Pain 06/25/21 06/26/21 mg tablet hydroxyzine pamoate 50 mg capsule 50 mg PO QID PRN Anxiety 06/25/21 06/26/21 oxybutynin chloride 5 mg 5 mg PO DAILY 06/25/21 06/26/21 tablet,extended release 24 hr Allergies Allergy/AdvReac Type Severity Reaction Status Date / Time nitrofurantoin Allergy Unknown HIVES Verified 01/30/22 20:07 oxycodone AdvReac Unknown NAUSEA, Verified 01/30/22 20:07 HEART RACING Review of Systems Review of Systems: All systems reviewed & are unremarkable except as noted in HPI and below Constitutional: Constitutional: Reports no additional constitutional complaints Eyes: Eyes: Reports no additional eye complaints ENT: Reports system reviewed and no additional complaints, except as documented Cardiovascular: Cardiovascular: Reports no additional cardiovascular complaints Respiratory: Respiratory: Reports no additional respiratory complaints Gastrointestinal: Gastrointestinal: Reports no additional gastrointestinal complaints Musculoskeletal: Musculoskeletal: Reports as per HPI Integumentary/Breasts: Skin/Breast: Reports system reviewed and no additional complaints, except as docu Neurologic: Reports system reviewed and no additional complaints, except as documented PMFSH Past Medical History Medical History Anemia Anxiety Arm fracture, left Arthritis Back pain Bronchitis Chronic respiratory failure COPD (chronic obstructive pulmonary disease) Depression Emphysema of lung Foot fracture, right GERD (gastroesophageal reflux disease) History of pulmonary embolus (PE) Inguinal hernia Kidney stones On home O2 2 L at rest and 3 L with activity Pneumonia Pulmonary embolism Pulmonary hypertension Pulmonary nodules suspicious for bronchogenic carcinoma Sleep apnea Tobacco abuse UTI (urinary tract infection) Surgical History Surgical History Hx of arthroscopy of left knee Hx of elbow surgery lt elbow Hx of inguinal hernia repair Hx of tonsillectomy Hx of tubal ligation Family History Family History Father , at 46 of lung CA Lung cancer Mother Dece
[2022-01-30 22:22] LABS: INR 1.1; Prothrombin Time 13.7 Seconds (11.1-14.7)
[2022-01-30 22:23] LABS: Alanine Aminotransferase 14 U/L (6-35); Albumin Level 3.6 g/dL (3.5-5.1); Alkaline Phosphatase 92 U/L (38-126); Anion Gap 5 mmol/L (8-16); Aspartate Amino Transferase 22 U/L (14-36); Bilirubin,Total 0.2 mg/dL (0.2-1.3); Blood Urea Nitrogen 21 mg/dL (7-17); Calcium 8.6 mg/dL (8.4-10.2); Carbon Dioxide 37 mmol/L (22-30); Chloride 91 mmol/L (98-107); Estimated CRCL calculation 67 ml/min; Estimated Glomerular Filt Rate > 60; Glucose 122 mg/dL (65-110); Potassium 4.9 mmol/L (3.4-5.0); Sodium 133 mmol/L (137-145)
[2022-01-30] MEDS: ONDANSETRON INJ 4 MG/2 ML VIAL IV PUSH (23:32)
[2022-01-30] MEDS: MORPHINE SULFATE (*CRX) 4 MG/ML INJ IV PUSH (23:32)
[2022-01-30 23:36] VITALS: BP 151/91; PULSE 88; RESP 18; O2SAT 100
== END 2022-01-31 00:49 | disposition short-term general hospital (02) ==
PROVIDERS: Emergency Provider Family Medicine; PCP Family Medicine
DX: S72.402A Unspecified fracture of lower end of left femur, initial encounter for closed fracture (principal); S93.402A Sprain of unspecified ligament of left ankle, initial encounter; W19.XXXA Unspecified fall, initial encounter; J44.9 Chronic obstructive pulmonary disease, unspecified; D64.9 Anemia, unspecified; F41.9 Anxiety disorder, unspecified; F32.A Depression, unspecified; K21.9 Gastro-esophageal reflux disease without esophagitis; I27.20 Pulmonary hypertension, unspecified; Z86.711 Personal history of pulmonary embolism; F17.210 Nicotine dependence, cigarettes, uncomplicated; Z99.81 Dependence on supplemental oxygen; Z79.51 Long term (current) use of inhaled steroids; Z79.01 Long term (current) use of anticoagulants; Z79.891 Long term (current) use of opiate analgesic
CPT/HCPCS: 36415; 73564; 73610; 73700; 80053; 85025; 85610; 96374; 96375; 99285; A9270; J2270; J2405

== ENCOUNTER 2022-06-01 18:54 | Emergency (ER) | payer OTHER, SELFPAY ==
--- NOTE | ~2022-06-01 | CT_ITS ---
EXAMINATION: CT cervical spine wo con DATE: 06/01/2022 19:37 INDICATION: Fall with head injury TECHNIQUE: Computed tomography (CT) of the cervical spine was performed without intravenous contrast. Automated exposure control and iterative reconstruction technique were employed. The dose-length pro duct was 119.64 mGy-cm. COMPARISON: 04/07/[address] neck dated 08/09/2018 FINDINGS: Straightening of the normal cervical lordosis. Moderate osteoarthritis at the atlantoaxial articulati on with prominent hypertrophic changes along the anterior ring of C1 and tip of the dens. No change i n a likely benign chronic sclerotic lesion at the junction of the clivus and left occipital condyle m ost likely either a bone island or enchondroma. Cervical vertebral body heights are normal. Unchanged mild anterior wedging at T1 and chronic mild superior endplate compression fracture at T3 No acute f racture. Interval progression of now severe disc height loss with degenerative endplate changes and s evere bilateral uncovertebral osteoarthritis at C6-C7. Moderate disc height loss with moderate to sev ere uncovertebral osteoarthritis bilaterally at C5-C6. Mild disc height loss at C4-C5. Multilevel jose l ateral moderate to severe cervical and upper thoracic facet osteoarthritis. Posterior disc osteophyte complexes at C5-C6 and C6-C7 resulting in mild central canal stenosis. There is also multilevel. Jose L ateral mild cervical neural foraminal stenosis. Severe emphysema. Linear bands of discoid atelectasis /scarring in the left upper lobe. IMPRESSION: 1. Progression of now moderate to severe lower cervical predominant spondylosis. No acute osseous abn ormality. 2. Severe emphysema. Reviewed, dictated and finalized at location A. APPLICATION TESTER IMPRESSION: 1. Progression of now moderate to severe lower cervical predominant spondylosis . No acute osseous abnormality. 2. Severe emphysema.
--- NOTE | ~2022-06-01 | CT_ITS ---
EXAMINATION: CT brain wo con DATE: 06/01/2022 19:37 INDICATION: Fall with head injury TECHNIQUE: Computed tomography (CT) of the head was performed without intravenous contrast. Sagittal and coronal reconstructions were performed. The mA was adjusted according to patient size. Iterative reconstruction technique was employed. The dose-length product was 605.33 mGy-cm. COMPARISON: head CT dated 04/07/21 FINDINGS: No fracture. No acute intracranial hemorrhage, acute infarction or abnormal extra axial fluid collect ion. Ventricles are normal and symmetric. No mass/mass effect. The orbits, paranasal sinuses and mast oid air cells are normal. IMPRESSION: 1. Normal head CT. No fracture or acute intracranial process. Reviewed, dictated and finalized at location A. DRY WORKER GENERAL
--- NOTE | ~2022-06-01 | XR_ITS ---
EXAMINATION: XR hand RT min 3V DATE: 06/01/2022 19:25 INDICATION: Right hand pain post fall TECHNIQUE: Posteroanterior, oblique and lateral views of the right hand were obtained. COMPARISON: None. FINDINGS: Diffuse osteopenia. Approximately 25-30 degrees palmar angulation of minimally displaced fractures of the necks of the fourth and fifth metacarpals densities boxes fractures close corticated ossicle sit uated between the base of the first and second metacarpals likely sequela of old trauma. Polyarticula r osteoarthritis, moderate severity at the first carpometacarpal joint and a few of the interphalange al joints and mild osteoarthritis at the wrist, midcarpal, triscaphe multiple metacarpophalangeal and remaining interphalangeal joints. IMPRESSION: 1. 25-30 degrees palmar angulation of extra articular fractures at the distal neck of the right fourt h and fifth metacarpals. Reviewed, dictated and finalized at location A. NOMIST IMPRESSION: 1. 25-30 degrees palmar angulation of extra articular fractures at the distal n nelly of the right fourth and fifth metacarpals.
[2022-06-01 18:56] VITALS: BP 132/84; PULSE 99; RESP 17; TEMP 36.7; O2SAT 97
[2022-06-01 20:09] LABS: Basophils Absolute Auto 0.1 K/mm3 (0.0-0.1); Basophils Percent Auto 0.4 % (0.2-1.2); Eosinophils Absolute Auto 0.1 K/mm3 (0-0.3); Eosinophils Percent Auto 0.6 % (0-4.4); Hematocrit 36.3 % (37.0-47.0); Hemoglobin 10.7 g/dL (12.0-15.0); Immature Granulocyte Absolute 0.03 K/mm3 (0.00-0.031); Immature Granulocyte Percent A 0.3 % (0-0.5); Lymphocytes Absolute Auto 2.19 K/mm3 (0.9-3.2); Lymphocytes Percent Auto 18.9 % (18.3-44.2); Mean Corpuscular HGB Conc 29.5 g/dl (32-36); Mean Corpuscular Hemoglobin 28.4 pg (26-34); Mean Corpuscular Volume 96.3 fl (80-100); Mean Platelet Volume 9.5 fl (7.4-10.4); Monocytes Absolute Auto 0.9 K/mm3 (0.1-0.6); Neutrophils Absolute Auto 8.3 K/mm3 (1.3-6.7); Neutrophils Percent Auto 71.8 % (45.5-73.1); Platelet Count Result 342 k/mm3 (150-375); Red Blood Count 3.77 M/mm3 (4.2-5.4); Red Cell Distribution Width 13.8 % (11.5-14.5); White Blood Count 11.6 K/mm3 (4.5-10.0)
[2022-06-01 20:19] LABS: INR 0.9
[2022-06-01 20:46] LABS: Blood Urea Nitrogen 16 mg/dL (7-17); Calcium 8.2 mg/dL (8.4-10.2); Carbon Dioxide > 40 mmol/L (22-30); Chloride 90 mmol/L (98-107); Estimated CRCL calculation 75 ml/min; Estimated Glomerular Filt Rate > 60; Glucose 85 mg/dL (65-110); Potassium 3.9 mmol/L (3.4-5.0); Sodium 131 mmol/L (137-145)
[2022-06-01 20:48] LABS: Hypochromasia 1+ (NORMAL); Platelet Estimate Adequate (Adequate); Schistocytes None Seen (NORMAL); Stomatocytes 2+ (NORMAL)
[2022-06-01 23:00] VITALS: BP 130/81; PULSE 90; RESP 19; O2SAT 99
--- NOTE | 2022-06-01 23:15 | ED.GENADULT ---
HPI - General Adult General Chief complaint: Extremity Injury, Upper Stated complaint: right hand swollen after fall Time Seen by Provider: 06/01/22 22:58 History of Present Illness HPI narrative: 57-year-old female presented to the emergency department for evaluation of right hand pain. Patient reports she had a ground-level fall last night caused by a stumble. Patient states she did not strike her head and had no loss of consciousness prior to or after the fall. Patient presented to the emergency department today for worsening right hand pain. Patient does have ecchymosis and edema on the lateral aspects of the right hand. Patient denies any other pain or injury. Related Data Home Medications Medication Instructions Recorded Confirmed apixaban 5 mg tablet (Eliquis) 5 mg PO BID 03/06/21 06/26/21 budesonide-formoterol HFA 160 2 puff inhalation BID 03/06/21 06/26/21 mcg-4.5 mcg/actuation aerosol inhaler (Symbicort) buspirone 10 mg tablet 10 mg PO BID 03/06/21 06/26/21 gabapentin 300 mg capsule 300 mg PO TID 03/06/21 06/26/21 metoprolol tartrate 25 mg tablet 25 mg PO BID 03/06/21 06/26/21 umeclidinium 62.5 mcg/actuation 1 inh inhalation DAILY 03/06/21 06/26/21 blister powder for inhalation (Incruse Ellipta) venlafaxine 150 mg 150 mg PO DAILY 03/06/21 06/26/21 capsule,extended release 24 hr hydrocodone 5 mg-acetaminophen 325 1 tablet PO Q6H PRN Pain 06/25/21 06/26/21 mg tablet hydroxyzine pamoate 50 mg capsule 50 mg PO QID PRN Anxiety 06/25/21 06/26/21 oxybutynin chloride 5 mg 5 mg PO DAILY 06/25/21 06/26/21 tablet,extended release 24 hr Allergies Allergy/AdvReac Type Severity Reaction Status Date / Time nitrofurantoin Allergy Unknown HIVES Verified 01/30/22 20:07 oxycodone AdvReac Unknown NAUSEA, Verified 01/30/22 20:07 HEART RACING Review of Systems Review of Systems: CONSTITUTIONAL: Denies fever, chills, or sweats. EYES: Denies visual changes, redness, or discharge. ENT: Denies rhinorrhea, congestion, sore throat, or otalgia. CARDIOVASCULAR: Denies chest pain, palpitations, or edema. RESPIRATORY: Denies cough or dyspnea. GASTROINTESTINAL: Denies abdominal pain, nausea, vomiting, or diarrhea. GENITOURINARY: Denies dysuria or hematuria. SKIN: Denies rash or itching. MUSCULOSKELETAL: See HPI NEUROLOGIC: Denies headache, numbness, or weakness. [facility] Past Medical History Medical History Anemia Anxiety Arm fracture, left Arthritis Back pain Bronchitis Chronic respiratory failure COPD (chronic obstructive pulmonary disease) Depression Emphysema of lung Foot fracture, right GERD (gastroesophageal reflux disease) History of pulmonary embolus (PE) Inguinal hernia Kidney stones On home O2 2 L at rest and 3 L with activity Pneumonia Pulmonary embolism Pulmonary hypertension Pulmonary nodules suspicious for bronchogenic carcinoma Sleep apnea Tobacco abuse UTI (urinary tract infection) Surgical History Surgical History Hx of arthroscopy of left knee Hx of elbow surgery lt elbow Hx of inguinal hernia repair Hx of tonsillectomy Hx of tubal ligation Family History Family History Father , at 46 of lung [place] Lung cancer Mother Cerebrovascular accident Grandparent Diabetes mellitus Sibling Lung cancer Social History Social History Social History: the patient has 5 children. She is . And she lives with her sister at this time. Her sister is a durable power cashier general for healthcare the patient is a full code. Smoking packs per day: 0.25 Smoking cigarettes per day: 5.0 Years smoked: 45 Smoking pack-years: 11.25 Smoking status: Current every day smoker Tobacco type: cigarettes Second hand tobacco smoke
[2022-06-01] MEDS: HYDROcodone/acetaminophen (*CRX) 10-325 MG TABLET 1 TAB PO (23:24)
[2022-06-02 00:15] VITALS: BP 138/89; PULSE 98; RESP 15; O2SAT 97
== END 2022-06-02 00:15 | disposition home or self-care (01) ==
PROVIDERS: Emergency Medicine; Emergency Provider Emergency Medicine; PCP Family Medicine
DX: S62.334A Displaced fracture of neck of fourth metacarpal bone, right hand, initial encounter for closed fracture (principal); S62.336A Displaced fracture of neck of fifth metacarpal bone, right hand, initial encounter for closed fracture; J96.10 Chronic respiratory failure, unspecified whether with hypoxia or hypercapnia; J43.9 Emphysema, unspecified; D64.9 Anemia, unspecified; I27.20 Pulmonary hypertension, unspecified; K21.9 Gastro-esophageal reflux disease without esophagitis; G47.30 Sleep apnea, unspecified; M19.90 Unspecified osteoarthritis, unspecified site; Z99.81 Dependence on supplemental oxygen; F41.9 Anxiety disorder, unspecified; F17.210 Nicotine dependence, cigarettes, uncomplicated; Z87.01 Personal history of pneumonia (recurrent); Z86.711 Personal history of pulmonary embolism; Z87.440 Personal history of urinary (tract) infections; Z87.442 Personal history of urinary calculi; M47.812 Spondylosis without myelopathy or radiculopathy, cervical region; Z79.01 Long term (current) use of anticoagulants; W01.0XXA Fall on same level from slipping, tripping and stumbling without subsequent striking against object, initial encounter
CPT/HCPCS: 29125; 36415; 70450; 72125; 73130; 80048; 85025; 85610; 99284; A4565; A9270

== ENCOUNTER 2022-06-28 15:08 | Inpatient (IN) | payer OTHER, SELFPAY ==
[2022-06-28] VITALS (21 sets, daily range): BP systolic 104–161; BP diastolic 76–97; PULSE 95–124; RESP 14–528; TEMP 35.9–37.4; O2SAT 92–100; BMI 14.8
--- NOTE | ~2022-06-28 | XR_ITS ---
EXAMINATION: XR barium swallow modified DATE: 07/02/2022 10:48 INDICATION: Abnormal esophagram TECHNIQUE: Modified barium esophagram was performed by myself who administered fluoroscopy, in conju nction with speech pathologist who administered barium in varying consistencies as per speech patholo gist documentation. This was recorded on tape. A single fluoroscopic spot image was recorded. Fluoros copy exposure time was 2.8 minutes. The DAP for this procedure was 1.815 Gycm2. FINDINGS: Oral stage: Adequate function. Pharyngeal phase: Adequate function. Laryngeal penetration: Present. Aspiration: Present. Laryngeal sensitivity: Decreased. IMPRESSION: Laryngeal penetration and aspiration. Please refer to speech pathologist findings and spe [facility] feeding recommendations. Reviewed, dictated and finalized at location A. NSED AND CERTIFIED MIDWIFE IMPRESSION: Laryngeal penetration and aspiration. Please refer to speech pathol ogist findings and specific feeding recommendations.
--- NOTE | ~2022-06-28 | US_ITS ---
EXAMINATION: US venous doppler [facility] DATE: 06/29/2022 16:09 INDICATION: Upper limb deep vein thrombosis. Shortness of breath. TECHNIQUE: Grayscale ultrasound images without and with compression and Doppler ultrasound images of the bilateral upper extremity veins were obtained. COMPARISON: None. FINDINGS: The visualized portions of the right internal jugular vein, subclavian vein, axillary vein, brachial veins, basilic vein, and cephalic vein are patent. Bandages and cast obscure the radial and ulnar vei ns. The visualized portions of the left internal jugular vein, subclavian vein, axillary vein, brachial v eins, basilic vein, radial vein, and ulnar vein are patent. IMPRESSION: 1. No deep venous thrombosis. Reviewed, dictated and finalized at location A. R FILTERER HELPER
--- NOTE | ~2022-06-28 | XR_ITS ---
EXAMINATION: XR hand RT 2V DATE: 06/30/2022 15:29 INDICATION: Right hand fracture. TECHNIQUE: 2 views of right hand were obtained. COMPARISON: Right hand radiographs 06/01/2022 FINDINGS: There is a transverse fracture of neck of third metacarpal. The distal fracture fragment de monstrates impaction. There is a transverse fracture of neck of fifth metacarpal. The distal fracture fragment demonstrates impaction and 13 degrees palmar angulation. There is a fracture of dorsal base of fourth distal phalanx with 1 mm distraction. There is mild right osteoarthritis of first metacarp ophalangeal joint and first interphalangeal joint. There is moderate osteoarthritis of triscaphe join t and mild osteoarthritis of first carpometacarpal joint. IMPRESSION: 1. Fractures of the necks of the fourth and fifth metacarpals without change in alignment. 2. Fracture of dorsal base of fourth distal phalanx. Reviewed, dictated and finalized at location A. S
--- NOTE | ~2022-06-28 | XR_ITS ---
EXAMINATION: XR chest 1V portable DATE: 06/30/2022 06:33 INDICATION: COPD TECHNIQUE: frontal view of the chest was obtained. COMPARISON: Chest radiograph dated 07/03/[address] dated 06/29/2022 FINDINGS: Severe bullous emphysema with hyperexpansion of lungs bilaterally right and with upper lung predomina nt increased lucency with architectural distortion. Unchanged subtle opacities in the left upper lung zone on CT correspond to discoid atelectasis/scarring along the major fissure. No pleural effusion o r pneumothorax. The cardiomediastinal silhouette is normal. IMPRESSION: 1. Severe emphysema with chronic mild atelectasis/scarring at the left upper lung zone. Reviewed, dictated and finalized at location A. [employer] IMPRESSION: 1. Severe emphysema with chronic mild atelectasis/scarring at the left upper sol ng zone.
--- NOTE | ~2022-06-28 | XR_ITS ---
EXAMINATION: XR esophogram water soluble DATE: 07/01/2022 15:07 INDICATION: Dysphagia. TECHNIQUE: The patient drank water-soluble contrast. Fluoroscopic spot radiographs of the hypopharynx and esophagus were obtained. Fluoroscopy exposure time was 0.8 minutes. COMPARISON: None. FINDINGS: The pharynx is symmetric and without evidence of mass lesion or mucosal irregularity. The e sophagus is normal without mass or stricture. Esophageal motility is normal. There is no hiatal herni a. There was an initial episode of minimal laryngeal penetration and delayed aspiration which was cachorro ent. On the next swallow there was more significant laryngeal penetration and aspiration which was ag ain silent at which point the study was terminated. IMPRESSION: 1. Laryngeal penetration with silent aspiration. Recommend further evaluation with a modified swallow study performed by the department of speech pathology. Reviewed, dictated and finalized at location A. ECT MANAGER/TEAM COACH IMPRESSION: 1. Laryngeal penetration with silent aspiration. Recommend further evaluation w ith a modified swallow study performed by the department of speech pathology.
--- NOTE | ~2022-06-28 | US_ITS ---
EXAMINATION: US carotid duplex BI DATE: 06/30/2022 16:18 INDICATION: Syncope. TECHNIQUE: Grayscale, color Doppler, and pulsed Doppler images of the cervical carotid arteries were obtained. The degree of vessel stenosis is placed in one of the following categories: normal, <50%, 5 0-69%, >=70% but less than near-occlusion, near-occlusion, or total occlusion. Note that percent sten osis relative to normal distal artery lumen diameter is indirectly measured from velocity measurement s as described by Juaquin, et al. Radiology 2003; [id number]. COMPARISON: None. FINDINGS: RIGHT: The right common carotid artery (CCA) peak systolic velocity (PSV) is 59 cm/s. The right internal car otid artery (ICA) PSV is 76 cm/s. The right ICA end-diastolic velocity (EDV) is 29 cm/s. The right IC A/CCA PSV ratio is 1.3. Grayscale and color Doppler images yield an estimate of <50% diameter reducti on from plaque in the ICA. There is antegrade flow in the right vertebral artery. LEFT: The left CCA PSV is 65 cm/s. The left ICA PSV is 65 cm/s. The left ICA EDV is 32 cm/s. The left ICA/C CA PSV ratio is 1.0. Grayscale and color Doppler images yield an estimate of <50% diameter reduction from plaque in the ICA. There is antegrade flow in the left vertebral artery. IMPRESSION: 1. <50% stenosis in the right internal carotid artery. 2. <50% stenosis in the left internal carotid artery. Reviewed, dictated and finalized at location A. ATIENT SCHEDULER
--- NOTE | ~2022-06-28 | US_ITS ---
EXAMINATION: US venous doppler [facility] DATE: 06/29/2022 16:09 INDICATION: R/O DVT . TECHNIQUE: Grayscale images without and with compression and Doppler images of the bilateral lower ex tremity veins were obtained. COMPARISON: None FINDINGS: The right common femoral vein, profunda (deep) femoral vein, femoral vein, popliteal vein, peroneal v ein, posterior tibial veins, gastrocnemius vein, and greater saphenous vein are patent. The left common femoral vein, profunda femoral vein, femoral vein, popliteal vein, peroneal vein, pos terior tibial veins, gastrocnemius vein, and greater saphenous vein are patent. IMPRESSION: 1. Patent bilateral lower extremity veins. No evidence of deep venous thrombosis. Reviewed, dictated and finalized at location K. ATOR GROUND BASED AIR DEFENCE IMPRESSION: 1. Patent bilateral lower extremity veins. No evidence of deep venous thrombos is.
--- NOTE | ~2022-06-28 | XR_ITS ---
EXAMINATION: XR forearm RT 2V DATE: 06/30/2022 15:28 INDICATION: Right upper limb injury. TECHNIQUE: 2 views of right forearm were obtained. COMPARISON: Right hand radiographs 06/01/2022 FINDINGS: Again seen are fractures of the necks of the fourth and fifth metacarpals. There is moderat e osteoarthritis of triscaphe joint and mild osteoarthritis of first carpometacarpal joint. There is normal bone alignment at the elbow. No elbow joint effusion. IMPRESSION: 1. Fractures of the necks of the fourth and fifth metacarpals without change in alignment. Reviewed, dictated and finalized at location A. ROOM TENDER
--- NOTE | ~2022-06-28 | XR_ITS ---
XR wrist RT 2V DATE: 06/30/2022 15:30 INDICATION: Right fourth and fifth metacarpal fractures TECHNIQUE: Portable AP and lateral views of right wrist COMPARISON: June 01, 2022 right hand FINDINGS: No significant change in position or alignment of fractures of the necks the right fourth a nd fifth metacarpal bones. There is a splint along the anteromedial forearm, wrist and hand. Osteopenia. No fracture or dislocation of the right wrist. Osteoarthritis at first carpometacarpal, first metacar pophalangeal and interphalangeal joints. IMPRESSION: No significant change in position or alignment of fractures of the fourth and fifth metac arpal bones Reviewed, dictated and finalized at location L. ESTATE PHOTOGRAPHER IMPRESSION: No significant change in position or alignment of fractures of the fourth and fifth metacarpal bones
--- NOTE | ~2022-06-28 | CT_ITS ---
EXAMINATION: CTA chest PE protocol DATE: 06/29/2022 16:15 INDICATION: Shortness of breath. COPD. TECHNIQUE: Computed tomography angiography (CTA) of the chest was performed with 90 CC Omnipaque 350 intravenous contrast timed to evaluate the pulmonary arteries. Coronal maximum intensity projection 3 D-reconstructions were created by the technologist. Automated exposure control and iterative reconstr uction technique were employed. Exam dose: 148.39 mGy-cm total exam DLP. COMPARISON: 07/03/2021 portable AP chest 07/02/2021 CTA chest FINDINGS: There is diagnostic contrast enhancement of the pulmonary arteries and no evidence of pulmo nary embolism. The ascending aorta measures up to 4 cm diameter, the mid aortic arch 2.5 cm diameter. No hilar or mediastinal mass lesion or lymphadenopathy. There are severe bullous emphysema. Prominent left upper lobe scarring. No active pulmonary infiltrate or consolidation is detected. Prominent degenerative disc disease in the lower cervical spine. There is diffuse osteopenia. Mild anterior wedge compression fracture deformity of T3, stable since 07/02/2021. IMPRESSION: No evidence of pulmonary embolism Severe bullous emphysema and prominent left upper lobe scarring Reviewed, dictated and finalized at Location A. Reviewed, dictated and finalized at location B. ERS CLUB REPRESENTATIVE
--- NOTE | 2022-06-28 08:51 | ADMGEN ---
This patient, Sharifa Mosquera, was admitted to IMU Room 203-01 via ambulance from [facility] at 0847. Patient/family oriented to hospital policies and general routines including ID bracelet, bed and alarms, visiting hours, pain management, procedures, bathroom and other care routines, personal items, smoking policy, room service/diet, and visiting hours. Information on how to activate the Rapid Response Team has been discussed. Patient/Family are encouraged to report perceived risks to care and to ask questions if they do not understand what they are told or what they should do.
--- OUTSIDE RECORDS SUMMARY | 2022-06-28 08:52 | XMS_ITS ---
Author Name PrernaArnaldo dotson Address [address] [place] [address] Organization [facility] Address [address] [place] [address] Care Team Providers Care Java Performance Engineer Name Role Phone Arnaldo Crowder Unavailable [phone] PROBLEMS Type Condition ICD9-CM Code NJI07-CW Code Onset Dates Condition Status SNOMED Code Problem Smoker F17.200 Feb, Active 54095172 Problem Shortness of breath R06.02 Feb, Active 070416485 Problem Requires continuous at home supplemental oxygen Z99.81 Feb, Active 098441554040 Problem Mass of upper lobe of left lung R91.8 Nov, Active [id number] ALLERGIES Substance Reaction Event Type Date Status Oxycodone HCl Unknown Drug Allergy Feb, Active Nitrofurantoin Unknown Drug Allergy Feb, Active ENCOUNTERS Encounter Location Date Diagnosis [facility] [address] [place] [address] Feb, Mass of upper lobe of left lung R91.8 ; Shortness of breath R06.02 ; Smoker F17.200 and Requires continuous at home supplemental oxygen Z99.81 IMMUNIZATIONS No Known Immunizations SOCIAL HISTORY Qualifiers
[2022-06-28 11:16] LABS: Alveolar/Arterial O2 Gradient 120.3 mmHg; Base Excess ABG 14.3 mEq/l (+/-2.0); Fractional Inspired Oxygen 40 %; HCO3 ABG 43.7 mEq/l (22.0-26.0); Oxygen Content ABG 15.9 %vol (16.0-22.0); Oxygen Saturation ABG 91.5 % (95.0-100.0); PO2 ABG 68.5 mmHg (80.0-100.0); PO2 FiO2 Ratio Arterial Blood 1.71 %; Total Hemoglobin 12.3 g/dL (12.0-18.0); pH ABG 7.335 (7.350-7.450)
[2022-06-28 11:19] LABS: Expiratory Pressure 5 cmH2O; Inspiratory Pressure 15 cmH2O; Modified Allen's Test Pass; PCO2 ABG 83.8 mmHg (35.0-45.0); Site Drawn LEFT RADIAL
[2022-06-28 11:20] LABS: Device BIPAP
--- NOTE | 2022-06-28 11:26 | PM.IMHP ---
H&P: HPI History of Present Illness Date/Time: 06/28/22 11:26 Chief Complaint: shortness of breath Narrative: patient is a 57-year-old female with history of severe emphysema, and pulmonary hypertension and recurrent exacerbation of COPD patient called EMS as patient was quite short of breath upon arrival of EMS patient was receiving breathing treatment and smoking at the same time, initially patient was taken to the [facility] was evaluated with exacerbation of COPD and started the patient on Solu-Medrol 125 mg x1, and bronchodilator, was also concern the patient has pneumonia and was started on ceftriaxone and azithromycin, patient was hypercarbic ABG showed pCO2 of 100 patient was placed on BiPAP and transfer the patient to the hospital, remains on the BiPAP, repeat ABG here showed pCO2 83, will continue the BiPAP repeat ABG in 2 hours, unable to provide history review of symptom, history review of symptoms is open from the chart, will continue methylprednisone, bronchodilator, ceftriaxone and azithromycin, will repeat ABG, consult pulmonology for further recommendation. patient is admitted as inpatient with hypercarbic respiratory failure and pneumonia Review of Systems Review of Systems: ROS unobtainable: Yes unobtainable due to medical condition PMFSH Past Medical History Medical History Anemia Anxiety Arm fracture, left Arthritis Back pain Bronchitis Chronic respiratory failure COPD (chronic obstructive pulmonary disease) Depression Emphysema of lung Foot fracture, right GERD (gastroesophageal reflux disease) History of pulmonary embolus (PE) Inguinal hernia Kidney stones On home O2 2 L at rest and 3 L with activity Pneumonia Pulmonary embolism Pulmonary hypertension Pulmonary nodules suspicious for bronchogenic carcinoma Sleep apnea Tobacco abuse UTI (urinary tract infection) Surgical History Surgical History Hx of arthroscopy of left knee Hx of elbow surgery lt elbow Hx of inguinal hernia repair Hx of tonsillectomy Hx of tubal ligation Family History Family History Father , at 46 of lung [place] Lung cancer Mother Cerebrovascular accident Grandparent Diabetes mellitus Sibling Lung cancer Social History Social History Social History: the patient has 5 children. She is . And she lives with her sister at this time. Her sister is a durable power disability attorney for healthcare the patient is a full code. Smoking packs per day: 1 Smoking cigarettes per day: 20.0 Years smoked: 40 Smoking pack-years: 40.00 Smoking status: Current every day smoker Tobacco type: cigarettes Second hand tobacco smoke exposure: Yes Alcohol intake: unknown Substance use: unknown Substance use type: does not use Living arrangements: with family Additional living arrangements comments: stays with cousin Occupation/Education: other Additional occupation/education comments: disable Gender identity (if verbalized by the patient): Female Spiritual care concerns: No Agree to blood products: Yes Meds Home Medications and Allergies Home Medications Medication Instructions Recorded Confirmed Type apixaban 5 mg tablet (Eliquis) 5 mg PO BID 03/06/21 06/28/22 History budesonide-formoterol HFA 160 2 puff inhalation BID 03/06/21 06/28/22 History mcg-4.5 mcg/actuation aerosol inhaler (Symbicort) buspirone 10 mg tablet 15 mg PO Q12H 03/06/21 06/28/22 History gabapentin 300 mg capsule 600 mg PO TID 03/06/21 06/28/22 History umeclidinium 62.5 mcg/actuation 1 inh inhalation DAILY 03/06/21 06/28/22 History blister powder for inhalation (Incruse Ellipta) venlafaxine 150 mg 150 mg PO DAILY 03/06/21
[2022-06-28 11:48] LABS: Hemoglobin 11.4 g/dL (12.0-15.0); Mean Corpuscular HGB Conc 29.2 g/dl (32-36); Mean Corpuscular Hemoglobin 28.6 pg (26-34); Mean Platelet Volume 10.5 fl (7.4-10.4); Platelet Count Result 308 k/mm3 (150-375); Red Blood Count 3.98 M/mm3 (4.2-5.4); Red Cell Distribution Width 13.3 % (11.5-14.5); White Blood Count 6.6 K/mm3 (4.5-10.0)
[2022-06-28 12:10] LABS: Alanine Aminotransferase 17 U/L (6-35); Albumin Level 3.9 g/dL (3.5-5.1); Alkaline Phosphatase 100 U/L (38-126); Aspartate Amino Transferase 24 U/L (14-36); Bilirubin,Total 0.4 mg/dL (0.2-1.3); Blood Urea Nitrogen 18 mg/dL (7-17); Calcium 8.8 mg/dL (8.4-10.2); Carbon Dioxide > 40 mmol/L (22-30); Chloride 86 mmol/L (98-107); Estimated CRCL calculation 84 ml/min; Estimated Glomerular Filt Rate > 60; Glucose 163 mg/dL (65-110); Magnesium 2.6 mg/dL (1.6-2.3); Potassium 5.3 mmol/L (3.4-5.0); Sodium 130 mmol/L (137-145)
[2022-06-28] MEDS: busPIRone HCL 10 MG, busPIRone HCL 5 MG 15 MG PO ×2 (13:38→20:42)
[2022-06-28] MEDS: GABAPENTIN 300 MG CAPSULE 600 MG PO ×2 (13:39→16:11)
[2022-06-28] MEDS: LORazepam INJ (*CRX) 2 MG/ML VIAL 0.5 MG IV PUSH ×2 (13:53→23:29)
--- NOTE | 2022-06-28 14:34 | PCRCNOTE ---
RN notified RT that patient is unable to tolerate BIPAP at time. RN placed patient on NC. Patient keeps asking for ativan.
[2022-06-28] MEDS: methylPREDNISolone SOD SUCC 125 MG VIAL 60 MG IV PUSH ×2 (14:59→20:43)
[2022-06-28] MEDS: IPRATROPIUM BR 0.02% INH SOLN 0.5 MG/2.5 ML VIAL INHALATION ×2 (15:55→20:01)
[2022-06-28] MEDS: ALBUTEROL SULFATE NEB 2.5 MG/3 ML INH INHALATION (15:55)
[2022-06-28] MEDS: VENLAFAXINE HCL XR 75 MG CAP.ER.24H 150 MG PO (16:09)
[2022-06-28] MEDS: METOPROLOL SUCCINATE EXT REL 25 MG TABCR PO (16:10)
[2022-06-28] MEDS: APIXABAN 5 MG TABLET PO (16:11)
[2022-06-28] MEDS: BUDESONIDE RESPULE NEB 0.5 MG/2 ML AMP INHALATION (19:55)
[2022-06-28] MEDS: FLUTICASONE/SALMETEROL 115-21 MCG INHALER 1 PUFF 2 PUFF INHALATION (19:55)
[2022-06-28] MEDS: HYDROcodone/acetaminophen (*CRX) 7.5-325 MG TABLET 1 TAB PO (20:42)
[2022-06-28] MEDS: hydrOXYzine pamoate 25 MG CAPSULE 50 MG PO (20:42)
[2022-06-28] MEDS: MONTELUKAST SODIUM 10 MG TABLET PO (20:43)
[2022-06-29] VITALS (25 sets, daily range): BP systolic 136–153; BP diastolic 87–99; PULSE 80–111; RESP 10–26; TEMP 36–36.8; O2SAT 92–100; BMI 14.9
[2022-06-29] MEDS: IPRATROPIUM BR 0.02% INH SOLN 0.5 MG/2.5 ML VIAL INHALATION ×2 (02:00→20:38)
[2022-06-29 04:25] LABS: Hematocrit 35.2 % (37.0-47.0); Hemoglobin 10.8 g/dL (12.0-15.0); Mean Corpuscular HGB Conc 30.7 g/dl (32-36); Mean Corpuscular Volume 94.4 fl (80-100); Mean Platelet Volume 10.6 fl (7.4-10.4); Platelet Count Result 294 k/mm3 (150-375); Red Blood Count 3.73 M/mm3 (4.2-5.4); White Blood Count 6.9 K/mm3 (4.5-10.0)
[2022-06-29 04:38] LABS: Blood Urea Nitrogen 19 mg/dL (7-17); Calcium 8.6 mg/dL (8.4-10.2); Carbon Dioxide > 40 mmol/L (22-30); Chloride 86 mmol/L (98-107); Estimated CRCL calculation 84 ml/min; Estimated Glomerular Filt Rate > 60; Glucose 167 mg/dL (65-110); Magnesium 2.2 mg/dL (1.6-2.3); Potassium 4.8 mmol/L (3.4-5.0); Sodium 132 mmol/L (137-145)
[2022-06-29] MEDS: methylPREDNISolone SOD SUCC 125 MG VIAL 60 MG IV PUSH (05:03)
[2022-06-29] MEDS: HYDROcodone/acetaminophen (*CRX) 7.5-325 MG TABLET 1 TAB PO ×3 (05:49→20:41)
[2022-06-29] MEDS: hydrOXYzine pamoate 25 MG CAPSULE 50 MG PO ×3 (05:50→23:08)
[2022-06-29] MEDS: FLUTICASONE/SALMETEROL 115-21 MCG INHALER 1 PUFF 2 PUFF INHALATION (08:59)
[2022-06-29] MEDS: BUDESONIDE RESPULE NEB 0.5 MG/2 ML AMP INHALATION ×2 (08:59→20:38)
[2022-06-29] MEDS: UMECLIDINIUM BROMIDE 62.5 MCG ELLIPTA 1 PUFF INHALATION (08:59)
[2022-06-29] MEDS: VENLAFAXINE HCL XR 75 MG CAP.ER.24H 150 MG PO (09:04)
[2022-06-29] MEDS: busPIRone HCL 10 MG, busPIRone HCL 5 MG 15 MG PO ×2 (09:04→20:41)
[2022-06-29] MEDS: APIXABAN 5 MG TABLET PO ×2 (09:04→17:14)
[2022-06-29] MEDS: PANTOPRAZOLE 40 MG TABLET PO (09:05)
[2022-06-29] MEDS: GABAPENTIN 300 MG CAPSULE 600 MG PO ×3 (09:05→17:14)
[2022-06-29] MEDS: METOPROLOL SUCCINATE EXT REL 25 MG TABCR PO (09:05)
[2022-06-29] MEDS: cefTRIAXone 2 GM in SODIUM CHLORIDE 0.9% IV 100 ML 200 ML IVPB (09:28)
--- NOTE | 2022-06-29 11:18 | PM.CNPUL ---
Assessment and Plan Assessment and plan (1) Acute exacerbation of chronic obstructive airways disease: Code(s): J44.1 - Chronic obstructive pulmonary disease with (acute) exacerbation Status: Acute Assessment and Plan: GOLD grade 4 group E COPD 84 pack years tobacco use and currently smoking half a pack, (FEV1 0.47 L, 18%, air trapping, hyperinflation and decreased DLCO from PFTs on 02/14/2020) on 3 L at rest and with ambulation at home, severe panlobular emphysema all lung andrea on CT scan of the chest 07/02/2021, and history of hypercarbic hypoxemic respiratory failure in the past. dyspnea on exertion walking room to room in her house with no change lead the last year. In patient COPD exacerbation 1 year ago and 12/2021. currently the patient has increased cough, increased phlegm production, no change in her from color of dark brown, increased wheezing and shortness of breath starting on 06/26/2022. The patient has a COPD exacerbation. I will decrease the patient's Solu-Medrol to 20 mg IV q.6, I will place the patient on levalbuterol nebulizers 1.25 mg Q 6 hours, ipratropium 0.5 mg nebulizers Q 6 hours, I will continue azithromycin and ceftriaxone for bronchitis and or early pneumonia. (started 06/28). I will obtain a CT scan of the chest looking for any confluent infiltrates as well as following up her left upper lobe cavitary lesion. Will follow with you. (2) Respiratory failure with hypoxia and hypercapnia: Code(s): J96.91 - Respiratory failure, unspecified with hypoxia; J96.92 - Respiratory failure, unspecified with hypercapnia Status: Acute Assessment and Plan: Patient with a history of severe COPD and hypoxemic and hypercarbic respiratory failure in the past with a blood gas of 7.36/58/75 on 07/05/2021 on 3 L nasal cannula. The chart mention the patient should be discharged on noninvasive ventilation but this was never completed. The patient has severe COPD and chronic hypercarbic respiratory failure with a blood gas on admission 06/28/22 of 7.17/108/104 and repeat blood gas after stabilized with BiPAP on 06/28 of 7.34/84/96. the patient would benefit from noninvasive ventilation to prevent further deterioration and to prevent subsequent hospitalizations. The patient tolerated straight BiPAP poorly and could not sleep due to the pressures. I have placed her on a noninvasive ventilator with the AVAPS mode and adjusted the settings to comfort resulting in a respiratory rate of 20, tidal volume 500, EPAP 5, minimal inspiratory pressure 6, maximal inspiratory pressure 25, inspiratory time 1.0, rise of 4 with 5 being are slowest and 32% FiO2. I will order an overnight oximetry on the studies and a blood gas prior to removal. (3) History of pulmonary embolus (PE): Code(s): Z86.711 - Personal history of pulmonary embolism Status: Acute Assessment and Plan: The patient tells me she had a blood clot in her lung many years ago and the chart states DVT and PE in 2019 and Family history of blood clots so she was told to take a blood thinner the rest of her life. She has recent falls with fractured left wrist 01/2021, fractured oblique distal femur and avulsion fracture of the lateral margin of the talus on 01/30/2022 and extra-articular fractures of the distal neck of the right 4th and 5th metacarpal so from a fall on 06/01/2022. Patient states that her maternal grandfather had a blood clot, her mother had a blood clot, her aunt had a blood clot, 2 sisters without blood cot and 5 children without blood clots. no CT angiograms or lower extremities in our system up until 04/30/2019 04/30/2019 the patient had lower extremity Dopplers which were negative for DVTs 07/02/2021: CT angiogram of the chest was with no PE. I will repeat CT angiogram of the chest today as well as upper and lower extremities. History of Present Illness History of Present Illness Consult date:
--- NOTE | 2022-06-29 12:55 | PM.IMPN ---
Progress Note: A&P Assessment and Plan (1) COPD exacerbation: Code(s): J44.1 - Chronic obstructive pulmonary disease with (acute) exacerbation Status: Acute Assessment and Plan: 06/29/2021 interval history: patient is a 57-year-old female with history of severe emphysema, and pulmonary hypertension and recurrent exacerbation of COPD patient called EMS as patient was quite short of breath upon arrival of EMS patient was receiving breathing treatment and smoking at the same time, initially patient was taken to the [facility] was evaluated with exacerbation of COPD and started the patient on Solu-Medrol 125 mg x1, and bronchodilator, was also concern the patient has pneumonia and was started on ceftriaxone and azithromycin, patient was hypercarbic ABG showed pCO2 of 100 patient was placed on BiPAP and transfer the patient to the hospital, remains on the BiPAP, repeat ABG here showed pCO2 83, will continue the BiPAP repeat ABG in 2 hours, was unable to provide history review of symptom, history review of symptoms is from the chart, today patient was seen by Dr. Nielsen, process analyst,taper Solu-Medrol to 20 mg q.6 will continue with bronchodilator and inhalers, also adjusted her BiPAP, today patient feels little better not a short of breath currently on BiPAP continue to monitor further recommendation to follow. (2) Acute and chronic respiratory failure with hypercapnia: Code(s): J96.22 - Acute and chronic respiratory failure with hypercapnia Status: Acute Assessment and Plan: patient with history severe emphysema and severe pulmonary hypertension with chronic hypercarbic respiratory failure on home oxygen 3 L nasal cannula, will continue the BiPAP will monitor (3) Pneumonia: Code(s): J18.9 - Pneumonia, unspecified organism Status: Acute Assessment and Plan: most likely patient has a community-acquired pneumonia will continue ceftriaxone and azithromycin Subjective Date/time seen: 06/29/22 12:55 06/29/2021 interval history: patient is a 57-year-old female with history of severe emphysema, and pulmonary hypertension and recurrent exacerbation of COPD patient called EMS as patient was quite short of breath upon arrival of EMS patient was receiving breathing treatment and smoking at the same time, initially patient was taken to the [facility] was evaluated with exacerbation of COPD and started the patient on Solu-Medrol 125 mg x1, and bronchodilator, was also concern the patient has pneumonia and was started on ceftriaxone and azithromycin, patient was hypercarbic ABG showed pCO2 of 100 patient was placed on BiPAP and transfer the patient to the hospital, remains on the BiPAP, repeat ABG here showed pCO2 83, will continue the BiPAP repeat ABG in 2 hours, was unable to provide history review of symptom, history review of symptoms is from the chart, today patient was seen by Dr. Nielsen, process analyst,taper Solu-Medrol to 20 mg q.6 will continue with bronchodilator and inhalers, also adjusted her BiPAP, today patient feels little better not a short of breath currently on BiPAP continue to monitor further recommendation to follow. Exam Narrative: appears chronically ill malnourished Patient is comfortable, NAD HEENT: eyes are clear and none icteric on BiPAP LUNGS: bilateral poor air entry with rhonchi HEART: RR S1S2 ABD: not distended Lower extremities: no edema SKIN: nonjaundiced Neuro: grossly intact. Objective Data Vital Signs Vital Signs: Vital Signs - 24 hr 06/28/22 13:26 06/28/22 14:21 06/28/22 15:55 Temperature Pulse Rate 112 H 124 H 119 H Respiratory Rate 23 H 528 H 21 H Blood Pressure Pulse Oximetry 93 92 Oxygen Delivery BiPAP BiPAP Oxygen Flow Rate Fraction of Inspired Oxygen 06/28/22 16:10 06/28/22 16:14 06/28/22 16:14 Temperature Pulse Rate 124 H 122 H Respiratory Rate 21 H Blood Pressure Pu
[2022-06-29] MEDS: methylPREDNISolone SOD SUCC 40 MG VIAL 20 MG IV PUSH ×2 (17:15→23:08)
[2022-06-29] MEDS: MONTELUKAST SODIUM 10 MG TABLET PO (20:41)
[2022-06-30] VITALS (29 sets, daily range): BP systolic 116–148; BP diastolic 84–89; PULSE 85–108; RESP 12–23; TEMP 35.7–36.7; O2SAT 97–100
--- NOTE | 2022-06-30 | ECHO_ITS ---
Patient Info Name: Sharifa Mosquera Age: 57 years : 1965 Gender: Female Ht: 66 in Wt: 92 lbs BSA: 1.37 m2 HR: 92 bpm BP: 116 / 85 mmHg Heart Rhythm: Sinus Rhythm, Tachycardia Technical Quality: Fair Exam Date: 06/30/2022 1:47 PM Exam Location: [facility] Patient Status: Inpatient Admit Date: 06/28/2022 Staff Ordering Physician: Julianne Stuart DO Global Logistics Analyst: Sasha Monroy RDCS Attending Provider: Julianne Stuart DO Referring Physician: Sade CROFT; Exam Type: CA echo doppler color flow Study Info Indications - COPD, EXACERBATION Complete two-dimensional, color flow and Doppler transthoracic echocardiogram is performed. Summary 1. Complete two-dimensional, color flow and Doppler transthoracic echocardiogram is performed. 2. Left ventricular chamber dimension is normal. 3. Left ventricular systolic function is normal, estimated at 50-55%. 4. The left ventricular diastolic function is grade I diastolic dysfunction. 5. Right ventricular systolic function is normal. 6. There is mild aortic valve calcification. 7. The mitral valve annulus is mildly calcified. 8. The mitral valve has thickened leaflets. 9. There is trace mitral valve regurgitation. 10. There is mild tricuspid valve regurgitation. 11. There is mild aortic atherosclerosis. 12. Normal inferior vena cava with >50% collapse upon inspiration consistent with normal right atrial pressure, 3 mmHg. Left Ventricle Left ventricular chamber dimension is normal. Left ventricular systolic function is normal, estimated at 50-55%. There is no increased left ventricular wall thickness. The left ventricular diastolic function is grade I diastolic dysfunction. Right Ventricle Right ventricular chamber dimension is normal. Right ventricular systolic function is normal. Left Atria Left atrial chamber dimension is normal. Right Atria Right atrial chamber dimension is normal. Atrial Septum Intact interatrial septum visualized by color flow imaging. Aortic Valve The aortic valve is probable trileaflet. There is no aortic valve stenosis. There is no aortic valve regurgitation. There is mild aortic valve calcification. Pulmonic Valve The pulmonic valve is not well visualized. Mitral Valve The mitral valve has thickened leaflets. There is no mitral valve stenosis. There is trace mitral valve regurgitation. The mitral valve annulus is mildly calcified. Tricuspid Valve There is mild tricuspid valve regurgitation. Pericardium/Pleural There is no pericardial effusion. Inferior Vena Cava Normal inferior vena cava with >50% collapse upon inspiration consistent with normal right atrial pressure, 3 mmHg. Aorta The aortic root size at the sinus of Valsalva is normal. There is mild aortic atherosclerosis. Left Ventricular Outflow Tract Name Value Normal LVOT 2D LVOT Diameter 2.0 cm LVOT Doppler LVOT Peak Gradient 4 mmHg LVOT Mean Gradient 2 mmHg LVOT VTI 16 cm LVOT VTI/AV VTI Ratio 0.7
[2022-06-30] MEDS: IPRATROPIUM BR 0.02% INH SOLN 0.5 MG/2.5 ML VIAL INHALATION ×4 (02:23→20:10)
[2022-06-30] MEDS: HYDROcodone/acetaminophen (*CRX) 7.5-325 MG TABLET 1 TAB PO ×3 (04:47→18:37)
[2022-06-30] MEDS: hydrOXYzine pamoate 25 MG CAPSULE 50 MG PO ×2 (04:47→23:02)
[2022-06-30] MEDS: methylPREDNISolone SOD SUCC 40 MG VIAL 20 MG IV PUSH ×3 (04:51→18:38)
[2022-06-30 05:36] LABS: Alveolar/Arterial O2 Gradient 27.9 mmHg; Fractional Inspired Oxygen 32 %; HCO3 ABG 46.7 mEq/l (22.0-26.0); Oxygen Content ABG 16.7 %vol (16.0-22.0); Oxygen Saturation ABG 96.6 % (95.0-100.0); PO2 ABG 97.5 mmHg (80.0-100.0); PO2 FiO2 Ratio Arterial Blood 3.05 %; Total Hemoglobin 12.3 g/dL (12.0-18.0); pH ABG 7.344 (7.350-7.450)
[2022-06-30 05:37] LABS: PCO2 ABG 87.8 mmHg (35.0-45.0); Site Drawn RIGHT RADIAL
[2022-06-30 05:38] LABS: Device OTHER DEVICE; Modified Allen's Test Unable to perform
[2022-06-30 06:18] LABS: Hematocrit 37.6 % (37.0-47.0); Hemoglobin 11.1 g/dL (12.0-15.0); Mean Corpuscular HGB Conc 29.5 g/dl (32-36); Mean Corpuscular Hemoglobin 28.1 pg (26-34); Mean Corpuscular Volume 95.2 fl (80-100); Mean Platelet Volume 10.5 fl (7.4-10.4); Platelet Count Result 291 k/mm3 (150-375); Red Blood Count 3.95 M/mm3 (4.2-5.4); Red Cell Distribution Width 13.1 % (11.5-14.5); White Blood Count 9.9 K/mm3 (4.5-10.0)
[2022-06-30 06:29] LABS: Blood Urea Nitrogen 21 mg/dL (7-17); Calcium 8.5 mg/dL (8.4-10.2); Carbon Dioxide > 40 mmol/L (22-30); Chloride 86 mmol/L (98-107); Estimated CRCL calculation 84 ml/min; Estimated Glomerular Filt Rate > 60; Glucose 181 mg/dL (65-110); Magnesium 2.2 mg/dL (1.6-2.3); Potassium 4.8 mmol/L (3.4-5.0); Sodium 132 mmol/L (137-145)
[2022-06-30] MEDS: BUDESONIDE RESPULE NEB 0.5 MG/2 ML AMP INHALATION ×2 (07:10→20:09)
--- NOTE | 2022-06-30 08:25 | PM.PNPUL ---
Progress Note: A&P Assessment and Plan (1) Acute exacerbation of chronic obstructive airways disease: Code(s): J44.1 - Chronic obstructive pulmonary disease with (acute) exacerbation Status: Acute Assessment and Plan: GOLD grade 4 group E COPD 84 pack years tobacco use and currently smoking half a pack, (FEV1 0.47 L, 18%, air trapping, hyperinflation and decreased DLCO from PFTs on 02/14/2020) on 3 L at rest and with ambulation at home, severe panlobular emphysema all lung andrea on CT scan of the chest 07/02/2021, and history of hypercarbic hypoxemic respiratory failure in the past. dyspnea on exertion walking room to room in her house with no foreign exchange student coordinator the last year. In patient COPD exacerbation 1 year ago and 12/2021. 06/29 currently the patient has increased cough, increased phlegm production, no change in her from color of dark brown, increased wheezing and shortness of breath starting on 06/26/2022. The patient has a COPD exacerbation. Plan: I will decrease the patient's Solu-Medrol to 20 mg IV q.6, I will place the patient on levalbuterol nebulizers 1.25 mg Q 6 hours, ipratropium 0.5 mg nebulizers Q 6 hours, I will continue azithromycin and ceftriaxone for bronchitis and or early pneumonia. (started 06/28). I will obtain a CT scan of the chest looking for any confluent infiltrates as well as following up her left upper lobe cavitary lesion. 06/30 patient wore the hospital noninvasive ventilator with the AVAPS mode last night and said she was able to sleep but this. Patient states overall she is feeling slightly worse today than yesterday with worse breathing. She coughs but cannot bring up her phlegm. Her white blood cell count is 9.9, creatinine is 0.4. She is on 3 L nasal cannula with saturations 100%. I decreased her to 2 L nasal cannula. She has a few end expiratory wheezes on the right. CTA scan with severe panlobular emphysema in all lung andrea with no focal infiltrates and scarring of the left upper lobe. Plan: Continue Solu-Medrol to 20 mg IV q.6, increase levalbuterol nebulizers 1.25 mg and ipratropium 0.5 mg nebulizers from Q 6 hours to Q 4, continue azithromycin and ceftriaxone for bronchitis and or early pneumonia (started 06/28). Will add guaifenesin 1200 mg p.o. b.i.d., dornase 2.5 mg nebulized q.12 hours and a Cornet flutter valve to help her expectorate her sputum. Discussed with Dr. Bergman. Will follow with you. (2) Respiratory failure with hypoxia and hypercapnia: Code(s): J96.91 - Respiratory failure, unspecified with hypoxia; J96.92 - Respiratory failure, unspecified with hypercapnia Status: Acute Assessment and Plan: Patient with a history of severe COPD and hypoxemic and hypercarbic respiratory failure in the past with a blood gas of 7.36/58/75 on 07/05/2021 on 3 L nasal cannula. The chart mention the patient should be discharged on noninvasive ventilation but this was never completed. The patient has severe COPD and chronic hypercarbic respiratory failure with a blood gas on admission 06/28/22 of 7.17/108/104 and repeat blood gas after stabilized with BiPAP on 06/28 of 7.34/84/96. the patient would benefit from noninvasive ventilation to prevent further deterioration and to prevent subsequent hospitalizations. The patient tolerated straight BiPAP poorly and could not sleep due to the pressures. 06/29 I have placed her on a noninvasive ventilator with the AVAPS mode and adjusted the settings to comfort resulting in a respiratory rate of 20, tidal volume 500, EPAP 5, minimal inspiratory pressure 6, maximal inspiratory pressure 25, inspiratory time 1.0, rise of 4 with 5 being are slowest and 32% FiO2. I will order an overnight oximetry on the studies and a blood gas prior to removal. 06/30 Patient wore AVAPS rate of 20, tidal volume 500, EPAP 5, minimal inspiratory pressure 6, maximal inspiratory pressure 20, inspiratory time 2nd, rise of 4 with 5 being the slowest and 32%. Olesya
[2022-06-30] MEDS: DORNASE ALFA INH SOLN 1 MG/ML 2.5 ML AMP 2.5 MG INHALATION ×2 (08:45→20:10)
[2022-06-30] MEDS: cefTRIAXone 2 GM in SODIUM CHLORIDE 0.9% IV 100 ML 200 ML IVPB (10:16)
[2022-06-30] MEDS: PANTOPRAZOLE 40 MG TABLET PO (10:17)
[2022-06-30] MEDS: VENLAFAXINE HCL XR 75 MG CAP.ER.24H 150 MG PO (10:17)
[2022-06-30] MEDS: METOPROLOL SUCCINATE EXT REL 25 MG TABCR PO (10:17)
[2022-06-30] MEDS: busPIRone HCL 10 MG, busPIRone HCL 5 MG 15 MG PO ×2 (10:18→20:10)
[2022-06-30] MEDS: APIXABAN 5 MG TABLET PO ×2 (10:18→18:37)
[2022-06-30] MEDS: GABAPENTIN 300 MG CAPSULE 600 MG PO ×3 (10:18→18:37)
[2022-06-30] MEDS: guaiFENesin 12 HR 600 MG TABCR 1200 MG PO ×2 (10:44→20:09)
--- NOTE | 2022-06-30 15:43 | PCPTNOTE ---
Attempted PT evaluation, per hospitalist hold therapy until pt is seen by ortho. Will follow. RN aware.
--- NOTE | 2022-06-30 16:03 | PM.IMPN ---
Progress Note: A&P Assessment and Plan (1) COPD exacerbation: Code(s): J44.1 - Chronic obstructive pulmonary disease with (acute) exacerbation Status: Acute Assessment and Plan: 06/30/2021 interval history: patient is a 57-year-old female with history of severe emphysema, and pulmonary hypertension and recurrent exacerbation of COPD patient called EMS as patient was quite short of breath upon arrival of EMS patient was receiving breathing treatment and smoking at the same time, initially patient was taken to the [facility] was evaluated with exacerbation of COPD and started the patient on Solu-Medrol 125 mg x1, and bronchodilator, was also concern the patient has pneumonia and was started on ceftriaxone and azithromycin, patient was hypercarbic ABG showed pCO2 of 100 patient was placed on BiPAP and transfer the patient to the hospital, remains on the BiPAP, repeat ABG here showed pCO2 83, will continue the BiPAP repeat ABG in 2 hours, was unable to provide history review of symptom, history review of symptoms is from the chart, on 06/29 patient was seen by Dr. Nielsen, batch roller operator,taper Solu-Medrol to 20 mg q.6 continued with bronchodilator and inhalers, also adjusted her BiPAP, Patient has recurrent fall and in recent fall patient fractured her right arm, wrist and hand, patient stats she just blacksout and falls, concern is patient on eliquis and on next fall patient can have cerebral bleed and patient is also high risk of PE, I have discuss with patient to further evaluate her syncopal episods and collops, will do carotid US and cardiac echo, patient will discuss with daughter if she wants stop taking Eliquis, will continue to monitor patient feels little better not a short of breath currently on BiPAP continue to monitor further recommendation to follow. (2) Acute and chronic respiratory failure with hypercapnia: Code(s): J96.22 - Acute and chronic respiratory failure with hypercapnia Status: Acute Assessment and Plan: patient with history severe emphysema and severe pulmonary hypertension with chronic hypercarbic respiratory failure on home oxygen 3 L nasal cannula, will continue the BiPAP will monitor (3) Pneumonia: Code(s): J18.9 - Pneumonia, unspecified organism Status: Acute Assessment and Plan: most likely patient has a community-acquired pneumonia will continue ceftriaxone and azithromycin Subjective Date/time seen: 06/30/22 16:03 06/30/2021 interval history: patient is a 57-year-old female with history of severe emphysema, and pulmonary hypertension and recurrent exacerbation of COPD patient called EMS as patient was quite short of breath upon arrival of EMS patient was receiving breathing treatment and smoking at the same time, initially patient was taken to the [facility] was evaluated with exacerbation of COPD and started the patient on Solu-Medrol 125 mg x1, and bronchodilator, was also concern the patient has pneumonia and was started on ceftriaxone and azithromycin, patient was hypercarbic ABG showed pCO2 of 100 patient was placed on BiPAP and transfer the patient to the hospital, remains on the BiPAP, repeat ABG here showed pCO2 83, will continue the BiPAP repeat ABG in 2 hours, was unable to provide history review of symptom, history review of symptoms is from the chart, on 06/29 patient was seen by Dr[address] Nielsen, batch roller operator,taper Solu-Medrol to 20 mg q.6 continued with bronchodilator and inhalers, also adjusted her BiPAP, Patient has recurrent fall and in recent fall patient fractured her right arm, wrist and hand, patient stats she just blacksout and falls, concern is patient on eliquis and on next fall patient can have cerebral bleed and patient is also high risk of PE, I have discuss with patient to further evaluate her syncopal episods and collops, will do carotid US and cardiac echo, patient will discuss with daughter if she wants
[2022-06-30] MEDS: MONTELUKAST SODIUM 10 MG TABLET PO (20:09)
[2022-07-01] VITALS (27 sets, daily range): BP systolic 103–155; BP diastolic 73–91; PULSE 86–108; RESP 17–22; TEMP 36.2–36.6; O2SAT 95–100
[2022-07-01] MEDS: methylPREDNISolone SOD SUCC 40 MG VIAL 20 MG IV PUSH ×2 (00:26→06:00)
[2022-07-01] MEDS: HYDROcodone/acetaminophen (*CRX) 7.5-325 MG TABLET 1 TAB PO ×4 (00:26→18:29)
--- NOTE | 2022-07-01 02:15 | PCRCNOTE ---
0200 UPD not given due to pt participating in apnea link. next UPD available at 0800.
[2022-07-01 05:22] LABS: Alveolar/Arterial O2 Gradient 20.2 mmHg; Base Excess ABG 15.3 mEq/l (+/-2.0); Fractional Inspired Oxygen 28 %; HCO3 ABG 44.9 mEq/l (22.0-26.0); Oxygen Content ABG 17.2 %vol (16.0-22.0); Oxygen Saturation ABG 94.7 % (95.0-100.0); Oxyhemoglobin 94.3 % THb (90.0-100.0); PO2 ABG 80.9 mmHg (80.0-100.0); PO2 FiO2 Ratio Arterial Blood 2.89 %; Total Hemoglobin 12.9 g/dL (12.0-18.0); pH ABG 7.348 (7.350-7.450)
[2022-07-01 05:23] LABS: Modified Allen's Test Pass; PCO2 ABG 83.5 mmHg (35.0-45.0); Site Drawn LEFT RADIAL
[2022-07-01 05:24] LABS: Device OTHER DEVICE
[2022-07-01 07:12] LABS: Hematocrit 37.6 % (37.0-47.0); Hemoglobin 11.6 g/dL (12.0-15.0); Mean Corpuscular HGB Conc 30.9 g/dl (32-36); Mean Corpuscular Hemoglobin 29.1 pg (26-34); Mean Corpuscular Volume 94.5 fl (80-100); Mean Platelet Volume 10.4 fl (7.4-10.4); Platelet Count Result 318 k/mm3 (150-375); Red Blood Count 3.98 M/mm3 (4.2-5.4); Red Cell Distribution Width 13.2 % (11.5-14.5); White Blood Count 8.7 K/mm3 (4.5-10.0)
[2022-07-01 07:24] LABS: Blood Urea Nitrogen 17 mg/dL (7-17); Calcium 8.5 mg/dL (8.4-10.2); Carbon Dioxide > 40 mmol/L (22-30); Chloride 86 mmol/L (98-107); Estimated CRCL calculation 85 ml/min; Estimated Glomerular Filt Rate > 60; Glucose 166 mg/dL (65-110); Magnesium 2.2 mg/dL (1.6-2.3); Potassium 4.8 mmol/L (3.4-5.0); Sodium 133 mmol/L (137-145)
[2022-07-01] MEDS: BUDESONIDE RESPULE NEB 0.5 MG/2 ML AMP INHALATION ×2 (09:08→21:05)
[2022-07-01] MEDS: IPRATROPIUM BR 0.02% INH SOLN 0.5 MG/2.5 ML VIAL INHALATION ×3 (09:08→21:05)
[2022-07-01] MEDS: DORNASE ALFA INH SOLN 1 MG/ML 2.5 ML AMP 2.5 MG INHALATION ×2 (09:09→21:05)
--- NOTE | 2022-07-01 10:10 | PM.PNPUL ---
Progress Note: A&P Assessment and Plan (1) Acute exacerbation of chronic obstructive airways disease: Code(s): J44.1 - Chronic obstructive pulmonary disease with (acute) exacerbation Status: Acute Assessment and Plan: GOLD grade 4 group E COPD 84 pack years tobacco use and currently smoking half a pack, (FEV1 0.47 L, 18%, air trapping, hyperinflation and decreased DLCO from PFTs on 02/14/2020) on 3 L at rest and with ambulation at home, severe panlobular emphysema all lung andrea on CT scan of the chest 07/02/2021, and history of hypercarbic hypoxemic respiratory failure in the past. dyspnea on exertion walking room to room in her house with no slip box changer the last year. In patient COPD exacerbation 1 year ago and 12/2021. 06/29 currently the patient has increased cough, increased phlegm production, no change in her from color of dark brown, increased wheezing and shortness of breath starting on 06/26/2022. The patient has a COPD exacerbation. Plan: I will decrease the patient's Solu-Medrol to 20 mg IV q.6, I will place the patient on levalbuterol nebulizers 1.25 mg Q 6 hours, ipratropium 0.5 mg nebulizers Q 6 hours, I will continue azithromycin and ceftriaxone for bronchitis and or early pneumonia. (started 06/28). I will obtain a CT scan of the chest looking for any confluent infiltrates as well as following up her left upper lobe cavitary lesion. 06/30 patient wore the hospital noninvasive ventilator with the AVAPS mode last night and said she was able to sleep but this. Patient states overall she is feeling slightly worse today than yesterday with worse breathing. She coughs but cannot bring up her phlegm. Her white blood cell count is 9.9, creatinine is 0.4. She is on 3 L nasal cannula with saturations 100%. I decreased her to 2 L nasal cannula. She has a few end expiratory wheezes on the right. CTA scan with severe panlobular emphysema in all lung andrea with no focal infiltrates and scarring of the left upper lobe. Plan: Continue Solu-Medrol to 20 mg IV q.6, increase levalbuterol nebulizers 1.25 mg and ipratropium 0.5 mg nebulizers from Q 6 hours to Q 4, continue azithromycin and ceftriaxone for bronchitis and or early pneumonia (started 06/28). Will add guaifenesin 1200 mg p.o. b.i.d., dornase 2.5 mg nebulized q.12 hours and a Cornet flutter valve to help her expectorate her sputum. 07/01 overall the patient states she feels the same as yesterday. Her cough has improved but persists she has no wheezes. White blood cell count 8.7, creatinine 0.4. Plan: I will change her Solu-Medrol to prednisone 40 mg p.o. q.day, I will continue her levalbuterol and ipratropium nebulizers at q.4 hours. no evidence pneumonia on her CT scan and I will discontinue ceftriaxone and continue azithromycin, started 06/28. Continue guaifenesin 1200 mg p.o. b.i.d., dornase 2.5 mg nebulized q.12 hours and a Cornet flutter valve to help her expectorate her sputum. Discussed with Dr. Londono. Will follow with you. (2) Respiratory failure with hypoxia and hypercapnia: Code(s): J96.91 - Respiratory failure, unspecified with hypoxia; J96.92 - Respiratory failure, unspecified with hypercapnia Status: Acute Assessment and Plan: Patient with a history of severe COPD and hypoxemic and hypercarbic respiratory failure in the past with a blood gas of 7.36/58/75 on 07/05/2021 on 3 L nasal cannula. The chart mention the patient should be discharged on noninvasive ventilation but this was never completed. The patient has severe COPD and chronic hypercarbic respiratory failure with a blood gas on admission 06/28/22 of 7.17/108/104 and repeat blood gas after stabilized with BiPAP on 06/28 of 7.34/84/96. the patient would benefit from noninvasive ventilation to prevent further deterioration and to prevent subsequent hospitalizations. The patient tolerated straight BiPAP poorly and could not sleep due to the pressures. 06/29 I have placed
--- NOTE | 2022-07-01 10:30 | PCPTNOTE ---
Continuing to wait on ortho consult. Will follow
[2022-07-01] MEDS: APIXABAN 5 MG TABLET PO ×2 (12:10→17:54)
[2022-07-01] MEDS: VENLAFAXINE HCL XR 75 MG CAP.ER.24H 150 MG PO (12:10)
[2022-07-01] MEDS: predniSONE 20 MG TABLET 40 MG PO (12:11)
[2022-07-01] MEDS: busPIRone HCL 10 MG, busPIRone HCL 5 MG 15 MG PO ×2 (12:11→20:35)
[2022-07-01] MEDS: polyethylene glycoL 3350 17 GM POWD.PACK BY MOUTH (12:12)
[2022-07-01] MEDS: GABAPENTIN 300 MG CAPSULE 600 MG PO ×3 (12:12→17:54)
[2022-07-01] MEDS: METOPROLOL SUCCINATE EXT REL 25 MG TABCR PO (12:12)
[2022-07-01] MEDS: PANTOPRAZOLE 40 MG TABLET PO (12:13)
[2022-07-01] MEDS: hydrOXYzine pamoate 25 MG CAPSULE 50 MG PO ×3 (12:13→23:24)
[2022-07-01] MEDS: guaiFENesin 12 HR 600 MG TABCR 1200 MG PO ×2 (12:14→20:35)
[2022-07-01] MEDS: DOCUSATE SODIUM 100 MG CAPSULE PO ×2 (12:26→20:35)
--- NOTE | 2022-07-01 12:39 | PM.IMPN ---
Progress Note: A&P Assessment and Plan (1) COPD exacerbation: Code(s): J44.1 - Chronic obstructive pulmonary disease with (acute) exacerbation Status: Acute Assessment and Plan: Continue supportive care. With nebulizers and steroids. (2) Acute and chronic respiratory failure with hypercapnia: Code(s): J96.22 - Acute and chronic respiratory failure with hypercapnia Status: Acute Assessment and Plan: patient with history severe emphysema and severe pulmonary hypertension with chronic hypercarbic respiratory failure on home oxygen 3 L nasal cannula, will continue the BiPAP will monitor (3) Pneumonia: Code(s): J18.9 - Pneumonia, unspecified organism Status: Acute Assessment and Plan: most likely patient has a community-acquired pneumonia will continue ceftriaxone and azithromycin (4) Dysphagia: Code(s): R13.10 - Dysphagia, unspecified Status: Acute Assessment and Plan: Patient reports a history of some mass in her throat previously this had been benign was not an issue anymore. Now she is having dysphagia again. Will check esophagram Subjective Date/time seen: 07/01/22 12:39 Complaining of dysphagia. Exam Narrative: appears chronically ill malnourished Patient is comfortable, NAD HEENT: eyes are clear and none icteric on BiPAP LUNGS: bilateral poor air entry with rhonchi HEART: RR S1S2 ABD: not distended Lower extremities: no edema SKIN: nonjaundiced Neuro: grossly intact. Objective Data Vital Signs Vital Signs: Vital Signs - 24 hr 06/30/22 13:10 06/30/22 13:20 06/30/22 15:51 Temperature 96.3 F L Pulse Rate 90 92 101 H Respiratory Rate 18 18 22 H Blood Pressure 135/84 Pulse Oximetry 100 Oxygen Delivery Oxygen Flow Rate Fraction of Inspired Oxygen 06/30/22 14:00 06/30/22 16:00 06/30/22 16:00 Temperature Pulse Rate 96 98 Respiratory Rate Blood Pressure Pulse Oximetry 100 Oxygen Delivery Nasal Cannula Oxygen Flow Rate 2 Fraction of Inspired Oxygen 06/30/22 18:00 06/30/22 20:13 06/30/22 20:14 Temperature Pulse Rate 106 H 100 Respiratory Rate 20 Blood Pressure Pulse Oximetry 100 Oxygen Delivery Nasal Cannula Oxygen Flow Rate 2 Fraction of Inspired Oxygen 06/30/22 20:00 06/30/22 20:32 06/30/22 20:00 Temperature 97.8 F Pulse Rate 104 H 99 Respiratory Rate 20 20 Blood Pressure 148/88 H Pulse Oximetry 100 100 Oxygen Delivery Nasal Cannula Oxygen Flow Rate 2 Fraction of Inspired Oxygen 06/30/22 23:19 06/30/22 23:36 06/30/22 20:00 Temperature 97.8 F Pulse Rate 104 H 101 H 106 H Respiratory Rate 23 H 20 Blood Pressure 132/87 Pulse Oximetry 97 99 Oxygen Delivery BiPAP Oxygen Flow Rate Fraction of Inspired Oxygen 06/30/22 22:00 07/01/22 00:00 07/01/22 02:16 Temperature Pulse Rate 105 H 96 Respiratory Rate 20 Blood Pressure Pulse Oximetry 100 98 Oxygen Delivery BiPAP BiPAP Oxygen Flow Rate Fraction of Inspired Oxygen 07/01/22 00:00 07/01/22 02:00 07/01/22 04:00 Temperature Pulse Rate 104 H 97 Respiratory Rate Blood Pressure Pulse Oximetry 96 Oxygen Delivery BiPAP Oxygen Flow Rate Fraction of Inspired Oxygen 30 07/01/22 04:00 07/01/22 05:25 07/01/22 04:00 Temperature 97.9 F Pulse Rate 91 100 90 Respiratory Rate 21 H 22 H Blood Pressure 103/77 Pulse Oximetry 95 100 Oxygen Delivery BiPAP Oxygen Flow Rate Fraction of Inspired Oxygen 07/01/22 06:00 07/01/22 08:11 07/01/22 09:09 Temperature 97.6 F Pulse Rate 91 88 106 H Respiratory Rate 18 20 Blood Pressure 140/82 Pulse Oximetry 100 Oxygen Delivery Oxygen Flow Rate Fraction of Inspired Oxygen 07/01/22 09:27 07/01/22 12:12 07/01/22 12:17 Temperature 97.7 F Pulse Rate 97 107 H 104 H Respiratory Rate 20 17 Blood Pressure 155/91 H Pulse Oximetry 100 Oxygen Delivery
[2022-07-01] MEDS: MONTELUKAST SODIUM 10 MG TABLET PO (20:35)
[2022-07-02] VITALS (19 sets, daily range): BP systolic 132–139; BP diastolic 84–92; PULSE 80–112; RESP 12–96; TEMP 35.6–36.7; O2SAT 96–100
[2022-07-02] MEDS: IPRATROPIUM BR 0.02% INH SOLN 0.5 MG/2.5 ML VIAL INHALATION ×3 (02:45→19:38)
[2022-07-02 05:03] LABS: Hematocrit 39.5 % (37.0-47.0); Hemoglobin 11.8 g/dL (12.0-15.0); Mean Corpuscular HGB Conc 29.9 g/dl (32-36); Mean Corpuscular Hemoglobin 28.4 pg (26-34); Mean Corpuscular Volume 95.2 fl (80-100); Mean Platelet Volume 10.5 fl (7.4-10.4); Platelet Count Result 277 k/mm3 (150-375); Red Blood Count 4.15 M/mm3 (4.2-5.4); Red Cell Distribution Width 13.2 % (11.5-14.5); White Blood Count 9.5 K/mm3 (4.5-10.0)
[2022-07-02 05:23] LABS: Blood Urea Nitrogen 20 mg/dL (7-17); Calcium 8.5 mg/dL (8.4-10.2); Carbon Dioxide > 40 mmol/L (22-30); Chloride 86 mmol/L (98-107); Estimated CRCL calculation 84 ml/min; Estimated Glomerular Filt Rate > 60; Glucose 110 mg/dL (65-110); Magnesium 2.5 mg/dL (1.6-2.3); Potassium 4.3 mmol/L (3.4-5.0); Sodium 129 mmol/L (137-145)
[2022-07-02] MEDS: hydrOXYzine pamoate 25 MG CAPSULE 50 MG PO ×2 (06:18→22:56)
[2022-07-02] MEDS: HYDROcodone/acetaminophen (*CRX) 7.5-325 MG TABLET 1 TAB PO ×3 (06:18→18:47)
[2022-07-02] MEDS: polyethylene glycoL 3350 17 GM POWD.PACK BY MOUTH (09:21)
[2022-07-02] MEDS: VENLAFAXINE HCL XR 75 MG CAP.ER.24H 150 MG PO (09:21)
[2022-07-02] MEDS: guaiFENesin 12 HR 600 MG TABCR 1200 MG PO ×2 (09:22→20:41)
[2022-07-02] MEDS: METOPROLOL SUCCINATE EXT REL 25 MG TABCR PO (09:22)
[2022-07-02] MEDS: PANTOPRAZOLE 40 MG TABLET PO (09:22)
[2022-07-02] MEDS: APIXABAN 5 MG TABLET PO ×2 (09:23→17:20)
[2022-07-02] MEDS: AZITHROMYCIN 250 MG TABLET 500 MG PO (09:23)
[2022-07-02] MEDS: GABAPENTIN 300 MG CAPSULE 600 MG PO ×3 (09:23→17:20)
[2022-07-02] MEDS: DOCUSATE SODIUM 100 MG CAPSULE PO ×2 (09:23→20:41)
[2022-07-02] MEDS: busPIRone HCL 10 MG, busPIRone HCL 5 MG 15 MG PO ×2 (09:23→20:41)
[2022-07-02] MEDS: predniSONE 20 MG TABLET 40 MG PO (09:24)
--- NOTE | 2022-07-02 10:29 | PM.PNPUL ---
Progress Note: A&P Assessment and Plan (1) Acute exacerbation of chronic obstructive airways disease: Code(s): J44.1 - Chronic obstructive pulmonary disease with (acute) exacerbation Status: Acute Assessment and Plan: GOLD grade 4 group E COPD 84 pack years tobacco use and currently smoking half a pack, (FEV1 0.47 L, 18%, air trapping, hyperinflation and decreased DLCO from PFTs on 02/14/2020) on 3 L at rest and with ambulation at home, severe panlobular emphysema all lung andrea on CT scan of the chest 07/02/2021, and history of hypercarbic hypoxemic respiratory failure in the past. dyspnea on exertion walking room to room in her house with no change management manager the last year. In patient COPD exacerbation 1 year ago and 12/2021. 06/29 currently the patient has increased cough, increased phlegm production, no change in her from color of dark brown, increased wheezing and shortness of breath starting on 06/26/2022. The patient has a COPD exacerbation. Plan: I will decrease the patient's Solu-Medrol to 20 mg IV q.6, I will place the patient on levalbuterol nebulizers 1.25 mg Q 6 hours, ipratropium 0.5 mg nebulizers Q 6 hours, I will continue azithromycin and ceftriaxone for bronchitis and or early pneumonia. (started 06/28). I will obtain a CT scan of the chest looking for any confluent infiltrates as well as following up her left upper lobe cavitary lesion. 06/30 patient wore the hospital noninvasive ventilator with the AVAPS mode last night and said she was able to sleep but this. Patient states overall she is feeling slightly worse today than yesterday with worse breathing. She coughs but cannot bring up her phlegm. Her white blood cell count is 9.9, creatinine is 0.4. She is on 3 L nasal cannula with saturations 100%. I decreased her to 2 L nasal cannula. She has a few end expiratory wheezes on the right. CTA scan with severe panlobular emphysema in all lung andrea with no focal infiltrates and scarring of the left upper lobe. Plan: Continue Solu-Medrol to 20 mg IV q.6, increase levalbuterol nebulizers 1.25 mg and ipratropium 0.5 mg nebulizers from Q 6 hours to Q 4, continue azithromycin and ceftriaxone for bronchitis and or early pneumonia (started 06/28). Will add guaifenesin 1200 mg p.o. b.i.d., dornase 2.5 mg nebulized q.12 hours and a Cornet flutter valve to help her expectorate her sputum. 07/01 overall the patient states she feels the same as yesterday. Her cough has improved but persists she has no wheezes. White blood cell count 8.7, creatinine 0.4. Plan: I will change her Solu-Medrol to prednisone 40 mg p.o. q.day, I will continue her levalbuterol and ipratropium nebulizers at q.4 hours. no evidence pneumonia on her CT scan and I will discontinue ceftriaxone and continue azithromycin, started 06/28. Continue guaifenesin 1200 mg p.o. b.i.d., dornase 2.5 mg nebulized q.12 hours and a Cornet flutter valve to help her expectorate her sputum. 07/02 Patient states she is slightly improved. She still feels that she has 10% at her normal baseline. She did sleep better and wore the hospital noninvasive ventilator. Her white blood cell count is 9.5, creatinine is 0.4. She has no wheezing and minimal phlegm production. Plan: Continue prednisone 40 ( today is day 5 steroids), increase her albuterol and levalbuterol nebulizers to Q 4 hours. Continue guaifenesin 1200 mg p.o. b.i.d.. Discontinue dornase is she has minimal response to this after [address] Londono. Will follow with you. (2) Respiratory failure with hypoxia and hypercapnia: Code(s): J96.91 - Respiratory failure, unspecified with hypoxia; J96.92 - Respiratory failure, unspecified with hypercapnia Status: Acute Assessment and Plan: Patient with a history of severe COPD and hypoxemic and hypercarbic respiratory failure in the past with a blood gas of 7.36/58/75 on 07/05/2021 on 3 L nasal cannula. The chart mention the patient
--- NOTE | 2022-07-02 11:15 | PCPTNOTE ---
Spoke with hospitalist prior to evaluation about R hand fracture and pending ortho consult. Per hospitalist, pt to remain non-weight bearing on R hand. with physical therapy. RN aware.
--- NOTE | 2022-07-02 11:19 | PCSTNOTE ---
Please refer to the Modified Barium Swallow Evaluation in the EMR.
--- NOTE | 2022-07-02 11:38 | PM.IMPN ---
Progress Note: A&P Assessment and Plan (1) COPD exacerbation: Code(s): J44.1 - Chronic obstructive pulmonary disease with (acute) exacerbation Status: Acute Assessment and Plan: Continue supportive care. With nebulizers and steroids. Continue azithromycin (2) Acute and chronic respiratory failure with hypercapnia: Code(s): J96.22 - Acute and chronic respiratory failure with hypercapnia Status: Acute Assessment and Plan: patient with history severe emphysema and severe pulmonary hypertension with chronic hypercarbic respiratory failure on home oxygen 3 L nasal cannula, will continue the BiPAP will monitor (3) Pneumonia: Code(s): J18.9 - Pneumonia, unspecified organism Status: Acute Assessment and Plan: most likely patient has a community-acquired pneumonia will continue ceftriaxone and azithromycin (4) Dysphagia: Code(s): R13.10 - Dysphagia, unspecified Status: Acute Assessment and Plan: Modified barium swallow done, diet recommendations will be changed. Subjective Date/time seen: 07/02/22 11:38 Doing well Exam Narrative: appears chronically ill malnourished Patient is comfortable, NAD HEENT: eyes are clear and none icteric on BiPAP LUNGS: bilateral poor air entry with rhonchi HEART: RR S1S2 ABD: not distended Lower extremities: no edema SKIN: nonjaundiced Neuro: grossly intact. Objective Data Vital Signs Vital Signs: Vital Signs - 24 hr 07/01/22 12:12 07/01/22 12:17 07/01/22 14:19 Temperature 97.7 F Pulse Rate 107 H 104 H 94 Respiratory Rate 17 20 Blood Pressure 155/91 H Pulse Oximetry 100 Oxygen Delivery Oxygen Flow Rate 07/01/22 14:28 07/01/22 15:59 07/01/22 12:00 Temperature 97.1 F L Pulse Rate 90 96 106 H Respiratory Rate 20 20 Blood Pressure 144/88 H Pulse Oximetry 100 Oxygen Delivery Oxygen Flow Rate 07/01/22 14:00 07/01/22 16:00 07/01/22 18:00 Temperature Pulse Rate 92 93 108 H Respiratory Rate Blood Pressure Pulse Oximetry Oxygen Delivery Oxygen Flow Rate 07/01/22 12:00 07/01/22 16:00 07/01/22 20:00 Temperature 97.7 F Pulse Rate 102 H Respiratory Rate 22 H Blood Pressure 133/73 Pulse Oximetry 100 100 99 Oxygen Delivery Nasal Cannula Nasal Cannula Oxygen Flow Rate 2 2 07/01/22 20:00 07/01/22 21:05 07/01/22 21:09 Temperature Pulse Rate 97 97 Respiratory Rate 20 Blood Pressure Pulse Oximetry 100 97 Oxygen Delivery Nasal Cannula Nasal Cannula Oxygen Flow Rate 2 2 07/01/22 21:32 07/01/22 20:00 07/01/22 22:00 Temperature Pulse Rate 99 106 H 95 Respiratory Rate 20 Blood Pressure Pulse Oximetry Oxygen Delivery Oxygen Flow Rate 07/01/22 23:48 07/01/22 23:55 07/02/22 00:00 Temperature 97.7 F Pulse Rate 88 94 93 Respiratory Rate 20 22 H Blood Pressure 135/86 Pulse Oximetry 100 99 Oxygen Delivery BiPAP Oxygen Flow Rate 07/02/22 00:00 07/02/22 02:45 07/02/22 02:45 Temperature Pulse Rate 87 87 Respiratory Rate 20 21 H Blood Pressure Pulse Oximetry 100 98 Oxygen Delivery BiPAP BiPAP Oxygen Flow Rate 07/02/22 02:53 07/02/22 02:00 07/02/22 04:00 Temperature Pulse Rate 86 89 89 Respiratory Rate 20 Blood Pressure Pulse Oximetry Oxygen Delivery Oxygen Flow Rate 07/02/22 04:00 07/02/22 04:00 07/02/22 06:00 Temperature 98.0 F Pulse Rate 86 80 Respiratory Rate 22 H Blood Pressure 133/87 Pulse Oximetry 100 100 Oxygen Delivery BiPAP Oxygen Flow Rate 07/02/22 08:03 07/02/22 09:22 07/02/22 08:00 Temperature 96.0 F L Pulse Rate 92 90 100 Respiratory Rate 22 H Blood Pressure 132/84 Pulse Oximetry 100 Oxygen Delivery Oxygen Flow Rate 07/02/22 10:00 07/02/22 08:00 Temperature Pulse Rate 112 H Respiratory Rate Blood Pressure Pulse Oximetry 100 Oxygen Delivery Nasal Cannula Oxygen Flow
--- NOTE | 2022-07-02 11:51 | PC.NURSE ---
received pt from [facility] at 1150. pt has been oriented to the floor. pt has call light within reach
[2022-07-02] MEDS: BUDESONIDE RESPULE NEB 0.5 MG/2 ML AMP INHALATION (19:38)
[2022-07-02] MEDS: MONTELUKAST SODIUM 10 MG TABLET PO (20:41)
[2022-07-03] VITALS (21 sets, daily range): BP systolic 137–149; BP diastolic 86–91; PULSE 84–110; RESP 16–24; TEMP 35.7–37.2; O2SAT 87–100
[2022-07-03] MEDS: IPRATROPIUM BR 0.02% INH SOLN 0.5 MG/2.5 ML VIAL INHALATION ×6 (00:12→21:12)
[2022-07-03] MEDS: HYDROcodone/acetaminophen (*CRX) 7.5-325 MG TABLET 1 TAB PO ×4 (00:29→17:34)
[2022-07-03 07:01] LABS: Hematocrit 40.8 % (37.0-47.0); Hemoglobin 12.4 g/dL (12.0-15.0); Mean Corpuscular HGB Conc 30.4 g/dl (32-36); Mean Corpuscular Hemoglobin 28.3 pg (26-34); Mean Corpuscular Volume 93.2 fl (80-100); Mean Platelet Volume 10.4 fl (7.4-10.4); Platelet Count Result 314 k/mm3 (150-375); Red Blood Count 4.38 M/mm3 (4.2-5.4); Red Cell Distribution Width 13.1 % (11.5-14.5)
[2022-07-03 07:08] LABS: Blood Urea Nitrogen 17 mg/dL (7-17); Calcium 8.4 mg/dL (8.4-10.2); Carbon Dioxide > 40 mmol/L (22-30); Chloride 86 mmol/L (98-107); Estimated CRCL calculation 69 ml/min; Estimated Glomerular Filt Rate > 60; Glucose 197 mg/dL (65-110); Magnesium 2.4 mg/dL (1.6-2.3); Sodium 132 mmol/L (137-145)
[2022-07-03] MEDS: busPIRone HCL 10 MG, busPIRone HCL 5 MG 15 MG PO ×2 (08:17→20:27)
[2022-07-03] MEDS: guaiFENesin 12 HR 600 MG TABCR 1200 MG PO ×2 (08:17→20:27)
[2022-07-03] MEDS: polyethylene glycoL 3350 17 GM POWD.PACK BY MOUTH (08:17)
[2022-07-03] MEDS: METOPROLOL SUCCINATE EXT REL 25 MG TABCR PO (08:17)
[2022-07-03] MEDS: hydrOXYzine pamoate 25 MG CAPSULE 50 MG PO ×2 (08:17→17:35)
[2022-07-03] MEDS: GABAPENTIN 300 MG CAPSULE 600 MG PO ×3 (08:17→17:32)
[2022-07-03] MEDS: predniSONE 20 MG TABLET 40 MG PO (08:18)
[2022-07-03] MEDS: DOCUSATE SODIUM 100 MG CAPSULE PO ×2 (08:18→20:27)
[2022-07-03] MEDS: VENLAFAXINE HCL XR 75 MG CAP.ER.24H 150 MG PO (08:18)
[2022-07-03] MEDS: APIXABAN 5 MG TABLET PO (08:18)
[2022-07-03] MEDS: AZITHROMYCIN 250 MG TABLET 500 MG PO (08:18)
[2022-07-03] MEDS: BUDESONIDE RESPULE NEB 0.5 MG/2 ML AMP INHALATION ×2 (09:52→21:12)
--- NOTE | 2022-07-03 09:56 | PCRCNOTE ---
ROSE FROM [facility] MED TO SET UP TRILOGY TODAY FOR PROBABLE DISCHARGE TOMORROW. [facility] TO FOLLOW UP AT HOME WITH PT UPON DISCHARGE.
--- NOTE | 2022-07-03 10:07 | PCNFU ---
Nutrition Follow-Up Complete: Severe protein calorie malnutrition related to chronic illness (COPD), loss of appetite as evidenced by 10% weight loss/ 6 months, 22% weight loss/1 year, poor intake <75% needs >1 month, severe muscle wasting and fat loss. Adequate PO intake at least 75% meals - Progressing toward goal Goal: Pt current nutrition is Heart healthy diet, soft and bite sized. Moderately thickened liquids. Intakes 10-100%. Current supplements: Chocolate Ensure Enlive with meals. Nutrition recommendation: Continue with current diet order and supplements. Agree with orders Last recorded weight is 45.1 kg. Bowel Motility:No BMs are charted Labs Reviewed: Na 132, Cre 0.5, Glu 197 Meds Noted: Protonix, prednisone Skin: Maceration to coccyx Additional Notes: Pt had MBSS yesterday with findings of aspiration with liquids, placed on moderately thickened liquids. Tolerating with sporadic appetite. Continue to monitor. Monitoring intakes, weights, labs, supplement tolerance, plan of care Follow up in 5 days.
--- NOTE | 2022-07-03 10:51 | HOMEO2EVAL ---
Evaluation was performed at [facility] Home Oxygen Evaluation RC: Home Oxygen (O2) Evaluation Start: 07/03/22 09:59 Freq: ONCE Status: Active Protocol: RPE Activity Type Activity Date Activity User E-sign Co-sign Detail Recorded Client Recorded Date Recorded By Document 07/03/22 10:00 [email or web address] [email or web address] 07/03/22 10:51 DJO Document 07/03/22 10:05 [email or web address] [email or web address] 07/03/22 10:51 DJO Document 07/03/22 10:10 [email or web address] [email or web address] 07/03/22 10:51 DJO Document 07/03/22 10:15 [email or web address] [email or web address] 07/03/22 10:51 DJO Document 07/03/22 10:20 [email or web address] [email or web address] 07/03/22 10:51 DJO Document 07/03/22 10:35 [email or web address] [email or web address] 07/03/22 10:51 DJO 07/03/22 07/03/22 07/03/22 10:00 10:05 10:10 Home O2 Evaluation [Oxygen] -Test Phase Resting Resting Exercise -Oxygen Delivery Room Air Nasal Cannula Nasal Cannula -Oxygen Flow Rate (L/min) 1 1 [Pulse Oximetry] -Pulse Oximetry (90-100 %) 88 L 91 87 L [Pulse Rate] -Pulse Rate (60-100 beats/min) 95 94 105 H [Evaluation] -Activity Tolerance [Charges] -Treatment Charges O2 Evaluation - Inpatient 07/03/22 07/03/22 07/03/22 10:15 10:20 10:35 Home O2 Evaluation [Oxygen] -Test Phase Exercise Exercise Resting -Oxygen Delivery Nasal Cannula Nasal Cannula Nasal Cannula -Oxygen Flow Rate (L/min) 2 3 1 [Pulse Oximetry] -Pulse Oximetry (90-100 %) 88 L 91 91 [Pulse Rate] -Pulse Rate (60-100 beats/min) 107 H 110 H 98 [Evaluation] -Activity Tolerance Fair [Charges] -Treatment Charges
--- NOTE | 2022-07-03 10:51 | PCRCNOTE ---
HOME O2 EVAL COMPLETE, 1 L AT REST AND 3 L WITH ACTIVITY. PT HAS HOME O2 WITH [facility]. HER DAUGHTER TO BRING IN TANK FOR DISCHARGE.
--- NOTE | 2022-07-03 11:10 | PM.IMPN ---
Progress Note: A&P Assessment and Plan (1) COPD exacerbation: Code(s): J44.1 - Chronic obstructive pulmonary disease with (acute) exacerbation Status: Acute Assessment and Plan: Continue supportive care. With nebulizers and steroids. Continue azithromycin (2) Acute and chronic respiratory failure with hypercapnia: Code(s): J96.22 - Acute and chronic respiratory failure with hypercapnia Status: Acute Assessment and Plan: patient with history severe emphysema and severe pulmonary hypertension with chronic hypercarbic respiratory failure on home oxygen 3 L nasal cannula, will continue the BiPAP will monitor (3) Pneumonia: Code(s): J18.9 - Pneumonia, unspecified organism Status: Acute Assessment and Plan: most likely patient has a community-acquired pneumonia will continue ceftriaxone and azithromycin (4) Dysphagia: Code(s): R13.10 - Dysphagia, unspecified Status: Acute Assessment and Plan: Modified barium swallow done, diet recommendations will be changed. Subjective Date/time seen: 07/03/22 11:10 No new complaints Exam Narrative: appears chronically ill malnourished Patient is comfortable, NAD HEENT: eyes are clear and none icteric on BiPAP LUNGS: bilateral poor air entry with rhonchi HEART: RR S1S2 ABD: not distended Lower extremities: no edema SKIN: nonjaundiced Neuro: grossly intact. Objective Data Vital Signs Vital Signs: Vital Signs - 24 hr 07/02/22 11:19 07/02/22 16:08 07/02/22 16:08 Temperature Pulse Rate 90 90 Respiratory Rate 18 18 Blood Pressure Pulse Oximetry 97 Oxygen Delivery Nasal Cannula Nasal Cannula Oxygen Flow Rate 3 1 Fraction of Inspired Oxygen 24 07/02/22 16:20 07/02/22 19:39 07/02/22 20:01 Temperature Pulse Rate 91 100 97 Respiratory Rate 18 20 20 Blood Pressure Pulse Oximetry Oxygen Delivery Oxygen Flow Rate Fraction of Inspired Oxygen 07/03/22 00:14 07/03/22 00:22 07/03/22 00:30 Temperature Pulse Rate 89 93 Respiratory Rate 18 18 22 H Blood Pressure Pulse Oximetry Oxygen Delivery BiPAP Oxygen Flow Rate Fraction of Inspired Oxygen 07/02/22 22:00 07/02/22 20:00 07/03/22 03:29 Temperature 97.2 F L Pulse Rate 100 87 Respiratory Rate 12 22 H Blood Pressure 139/91 H Pulse Oximetry 96 96 Oxygen Delivery Nasal Cannula Oxygen Flow Rate 2 Fraction of Inspired Oxygen 07/03/22 06:19 07/03/22 06:00 07/03/22 08:17 Temperature 96.3 F L Pulse Rate 100 84 100 Respiratory Rate 20 20 Blood Pressure 149/91 H Pulse Oximetry 96 100 Oxygen Delivery Nasal Cannula Oxygen Flow Rate 1 Fraction of Inspired Oxygen 24 07/03/22 09:51 07/03/22 09:51 07/03/22 10:11 Temperature Pulse Rate 100 100 95 Respiratory Rate 24 H 24 H Blood Pressure Pulse Oximetry 97 Oxygen Delivery Nasal Cannula Oxygen Flow Rate 1 Fraction of Inspired Oxygen 07/03/22 10:00 07/03/22 10:05 07/03/22 10:10 Temperature Pulse Rate 95 94 105 H Respiratory Rate Blood Pressure Pulse Oximetry 88 L 91 87 L Oxygen Delivery Room Air Nasal Cannula Nasal Cannula Oxygen Flow Rate 1 1 Fraction of Inspired Oxygen 07/03/22 10:15 07/03/22 10:20 07/03/22 10:35 Temperature Pulse Rate 107 H 110 H 98 Respiratory Rate Blood Pressure Pulse Oximetry 88 L 91 91 Oxygen Delivery Nasal Cannula Nasal Cannula Nasal Cannula Oxygen Flow Rate 2 3 1 Fraction of Inspired Oxygen Intake/Output Intake/Output: Intake & Output 06/30/22 07/01/22 07/02/22 07/03/22 23:59 23:59 23:59 23:59 Intake Total 770 642 540 100 Output Total 688 584 0215 750 Balance -180 -108 -460 -650 Meds/Results Medications: Active Medications Generic Name Dose Route Start Last Admin Trade Name Freq PRN Reason Stop Dose Admin Acetaminophen 650 mg 06/28/22 11:01 Acetaminophen 325 Mg Tablet PO Q6H PRN Pain (Sca
--- NOTE | 2022-07-03 11:23 | PM.PNPUL ---
Progress Note: A&P Assessment and Plan (1) Acute exacerbation of chronic obstructive airways disease: Code(s): J44.1 - Chronic obstructive pulmonary disease with (acute) exacerbation Status: Acute Assessment and Plan: GOLD grade 4 group E COPD 84 pack years tobacco use and currently smoking half a pack, (FEV1 0.47 L, 18%, air trapping, hyperinflation and decreased DLCO from PFTs on 02/14/2020) on 3 L at rest and with ambulation at home, severe panlobular emphysema all lung andrea on CT scan of the chest 07/02/2021, and history of hypercarbic hypoxemic respiratory failure in the past. 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 In patient COPD exacerbation 1 year ago and 12/2021. 06/29 currently the patient has increased cough, increased phlegm production, no change in her from color of dark brown, increased wheezing and shortness of breath starting on 06/26/2022. The patient has a COPD exacerbation. Plan: I will decrease the patient's Solu-Medrol to 20 mg IV q.6, I will place the patient on levalbuterol nebulizers 1.25 mg Q 6 hours, ipratropium 0.5 mg nebulizers Q 6 hours, I will continue azithromycin and ceftriaxone for bronchitis and or early pneumonia. (started 06/28). I will obtain a CT scan of the chest looking for any confluent infiltrates as well as following up her left upper lobe cavitary lesion. 06/30 patient wore the hospital noninvasive ventilator with the AVAPS mode last night and said she was able to sleep but this. Patient states overall she is feeling slightly worse today than yesterday with worse breathing. She coughs but cannot bring up her phlegm. Her white blood cell count is 9.9, creatinine is 0.4. She is on 3 L nasal cannula with saturations 100%. I decreased her to 2 L nasal cannula. She has a few end expiratory wheezes on the right. CTA scan with severe panlobular emphysema in all lung andrea with no focal infiltrates and scarring of the left upper lobe. Plan: Continue Solu-Medrol to 20 mg IV q.6, increase levalbuterol nebulizers 1.25 mg and ipratropium 0.5 mg nebulizers from Q 6 hours to Q 4, continue azithromycin and ceftriaxone for bronchitis and or early pneumonia (started 06/28). Will add guaifenesin 1200 mg p.o. b.i.d., dornase 2.5 mg nebulized q.12 hours and a Cornet flutter valve to help her expectorate her sputum. 07/01 overall the patient states she feels the same as yesterday. Her cough has improved but persists she has no wheezes. White blood cell count 8.7, creatinine 0.4. Plan: I will change her Solu-Medrol to prednisone 40 mg p.o. q.day, I will continue her levalbuterol and ipratropium nebulizers at q.4 hours. no evidence pneumonia on her CT scan and I will discontinue ceftriaxone and continue azithromycin, started 06/28. Continue guaifenesin 1200 mg p.o. b.i.d., dornase 2.5 mg nebulized q.12 hours and a Cornet flutter valve to help her expectorate her sputum. 07/02 Patient states she is slightly improved. She still feels that she has 10% at her normal baseline. She did sleep better and wore the hospital noninvasive ventilator. Her white blood cell count is 9.5, creatinine is 0.4. She has no wheezing and minimal phlegm production. Plan: Continue prednisone 40 ( today is day 5 steroids), increase her albuterol and levalbuterol nebulizers to Q 4 hours. Continue budesonide 500 BID. Continue guaifenesin 1200 mg p.o. b.i.d.. Discontinue dornase is she has minimal response to this after 48 hours. 07/03 The patient continues to slowly improve. She denies cough or phlegm production but is weak and has shortness of breath with activity. Currently the patient is on 1 L nasal cannula saturations 98%. White blood cell count is 11.0, creatinine is 0.5. Plan: Today is day 6 of steroids and day 5 of azithromycin and both have been discontinued In anticipation of DC home on 07/04/2022. continue albuterol and levalbuterol nebulizers q.4 hours, b
[2022-07-03] MEDS: PANTOPRAZOLE 40 MG TABLET PO (11:49)
[2022-07-03] MEDS: MONTELUKAST SODIUM 10 MG TABLET PO (20:27)
[2022-07-03] MEDS: FLUTICASONE PROPIONATE 0.05% NA SPR 16 GM BTL (*BKC) 2 SPRAY NASAL (20:27)
[2022-07-04] VITALS (13 sets, daily range): BP systolic 126–142; BP diastolic 80–85; PULSE 88–98; RESP 16–20; TEMP 36.9–37.1; O2SAT 96–99
[2022-07-04] MEDS: HYDROcodone/acetaminophen (*CRX) 7.5-325 MG TABLET 1 TAB PO ×3 (00:02→15:58)
[2022-07-04] MEDS: IPRATROPIUM BR 0.02% INH SOLN 0.5 MG/2.5 ML VIAL INHALATION ×5 (00:05→15:10)
[2022-07-04 06:29] LABS: Hematocrit 36.7 % (37.0-47.0); Hemoglobin 11.5 g/dL (12.0-15.0); Mean Corpuscular HGB Conc 31.3 g/dl (32-36); Mean Corpuscular Hemoglobin 28.6 pg (26-34); Mean Corpuscular Volume 91.3 fl (80-100); Mean Platelet Volume 10.4 fl (7.4-10.4); Platelet Count Result 312 k/mm3 (150-375); Red Blood Count 4.02 M/mm3 (4.2-5.4); Red Cell Distribution Width 13.2 % (11.5-14.5); White Blood Count 10.4 K/mm3 (4.5-10.0)
[2022-07-04 06:43] LABS: Blood Urea Nitrogen 17 mg/dL (7-17); Calcium 8.3 mg/dL (8.4-10.2); Carbon Dioxide > 40 mmol/L (22-30); Chloride 90 mmol/L (98-107); Estimated CRCL calculation 91 ml/min; Estimated Glomerular Filt Rate > 60; Glucose 102 mg/dL (65-110); Magnesium 2.5 mg/dL (1.6-2.3); Potassium 4.1 mmol/L (3.4-5.0); Sodium 133 mmol/L (137-145)
[2022-07-04] MEDS: BUDESONIDE RESPULE NEB 0.5 MG/2 ML AMP INHALATION (07:10)
[2022-07-04 09:19] LABS: Alpha-1-Antitrypsin, QN 148 mg/dL (83-199)
[2022-07-04] MEDS: VENLAFAXINE HCL XR 75 MG CAP.ER.24H 150 MG PO (10:04)
[2022-07-04] MEDS: busPIRone HCL 10 MG, busPIRone HCL 5 MG 15 MG PO (10:04)
[2022-07-04] MEDS: guaiFENesin 12 HR 600 MG TABCR 1200 MG PO (10:04)
[2022-07-04] MEDS: PANTOPRAZOLE 40 MG TABLET PO (10:04)
[2022-07-04] MEDS: DOCUSATE SODIUM 100 MG CAPSULE PO (10:04)
[2022-07-04] MEDS: METOPROLOL SUCCINATE EXT REL 25 MG TABCR PO (10:05)
[2022-07-04] MEDS: GABAPENTIN 300 MG CAPSULE 600 MG PO ×3 (10:06→16:02)
--- NOTE | 2022-07-04 10:34 | PM.DS ---
DS: Admitting Diagnosis Discharge Date July 04, 2022 Admitting Diagnosis COPD exacerbation DS: Discharge Diagnosis Discharge Diagnosis (1) COPD exacerbation: Code(s): J44.1 - Chronic obstructive pulmonary disease with (acute) exacerbation Status: Acute Assessment and Plan: Continue supportive care. With nebulizers and steroids. Continue azithromycin (2) Acute and chronic respiratory failure with hypercapnia: Code(s): J96.22 - Acute and chronic respiratory failure with hypercapnia Status: Acute Assessment and Plan: patient with history severe emphysema and severe pulmonary hypertension with chronic hypercarbic respiratory failure on home oxygen 3 L nasal cannula, will continue the BiPAP will monitor (3) Pneumonia: Code(s): J18.9 - Pneumonia, unspecified organism Status: Acute Assessment and Plan: most likely patient has a community-acquired pneumonia will continue ceftriaxone and azithromycin (4) Dysphagia: Code(s): R13.10 - Dysphagia, unspecified Status: Acute Assessment and Plan: Modified barium swallow done, diet recommendations will be changed. DS: Summary Hospital Course Hospital Course: Patient is a 57-year-old female with chronic lung disease and COPD. Came in with exacerbation. Pulmonary was involved with her care as well. Medications were adjusted and patient was given antibiotics and steroids while in the hospital. He will be sent home on nebulizers, inhaled steroids, and she will also be given AVAPS machine. This has been sent by Pulmonary and patient already has machine. She is also to continue oxygen. Follow-up pulmonary Time Spent with Patient Time attestation: Total time spent providing and/or coordinating discharge services: Exam Narrative: appears chronically ill malnourished Patient is comfortable, NAD HEENT: eyes are clear and none icteric on BiPAP LUNGS: bilateral poor air entry with rhonchi HEART: RR S1S2 ABD: not distended Lower extremities: no edema SKIN: nonjaundiced Neuro: grossly intact. DS: Data Data Completed and Pending Labs on day of discharge: Labs from last 24 hours 07/04/22 07/04/22 07/01/22 06:04 06:04 07:00 WBC 10.4 H RBC 4.02 L Hgb 11.5 L Hct 36.7 L MCV 91.3 MCH 28.6 MCHC 31.3 L RDW 13.2 Plt Count 312 MPV 10.4 Sodium 133 L Potassium 4.1 Chloride 90 L Carbon Dioxide > 40 H Anion Gap BUN 17 Creatinine 0.40 L Estim Creat Clear Calc 91 Estimated GFR > 60 Glucose 102 Calcium 8.3 L Magnesium 2.5 H [id number] 148 Discharge Plan Discharge Attending physician on discharge: Hany Londono Consulting providers: Hany Nielsen ; Maxwell Balderas Discharging Clinician: Hany Londono Patient Disposition: Home, Self-Care Activity: no preference Diet: as tolerated Patient Instructions: Antibiotic Form, Apixaban (By mouth), How to Stop Smoking (DC), Pain Management in Older Adults (DC), Using Oxygen at Home (DC), BiPAP (GEN) Stand Alone Forms: General Discharge Information Follow-up/Referrals: Prakash Cameron MD [Primary Care Provider] - Hany Nielsen MD [Physician] - Discharge Medications: New guaifenesin 200 mg tablet 200 mg PO QID PRN (Reason: cough) Qty: 90 0RF Continued venlafaxine 150 mg capsule,extended release 24hr 150 mg PO DAILY buspirone 10 mg tablet 15 mg PO Q12H gabapentin 300 mg capsule 600 mg PO TID Incruse Ellipta 62.5 mcg/actuation blister with device 1 inh INHALATION DAILY budesonide-formoterol [Symbicort] 160-4.5 mcg/actuation HFA aerosol inhaler 2 puff INHALATION BID cyclobenzaprine 10 mg tablet 10 mg PO TID PRN (Reason: Muscle Spasm) acetaminophen 650 mg Tablet 650 mg PO Q6H PRN (Reason: Pain (Scale Score 1-3)) hydrocodone-acetaminophen 7.5-325 mg tablet 1 tablet PO
--- NOTE | 2022-07-04 10:35 | PM.PNPUL ---
Progress Note: A&P Assessment and Plan (1) Acute exacerbation of chronic obstructive airways disease: Code(s): J44.1 - Chronic obstructive pulmonary disease with (acute) exacerbation Status: Acute Assessment and Plan: GOLD grade 4 group E COPD 84 pack years tobacco use and currently smoking half a pack, (FEV1 0.47 L, 18%, air trapping, hyperinflation and decreased DLCO from PFTs on 02/14/2020) on 3 L at rest and with ambulation at home, severe panlobular emphysema all lung andrea on CT scan of the chest 07/02/2021, and history of hypercarbic hypoxemic respiratory failure in the past. 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 In patient COPD exacerbation 1 year ago and 12/2021. 06/29 currently the patient has increased cough, increased phlegm production, no change in her from color of dark brown, increased wheezing and shortness of breath starting on 06/26/2022. The patient has a COPD exacerbation. Plan: I will decrease the patient's Solu-Medrol to 20 mg IV q.6, I will place the patient on levalbuterol nebulizers 1.25 mg Q 6 hours, ipratropium 0.5 mg nebulizers Q 6 hours, I will continue azithromycin and ceftriaxone for bronchitis and or early pneumonia. (started 06/28). I will obtain a CT scan of the chest looking for any confluent infiltrates as well as following up her left upper lobe cavitary lesion. 06/30 patient wore the hospital noninvasive ventilator with the AVAPS mode last night and said she was able to sleep but this. Patient states overall she is feeling slightly worse today than yesterday with worse breathing. She coughs but cannot bring up her phlegm. Her white blood cell count is 9.9, creatinine is 0.4. She is on 3 L nasal cannula with saturations 100%. I decreased her to 2 L nasal cannula. She has a few end expiratory wheezes on the right. CTA scan with severe panlobular emphysema in all lung andrea with no focal infiltrates and scarring of the left upper lobe. Plan: Continue Solu-Medrol to 20 mg IV q.6, increase levalbuterol nebulizers 1.25 mg and ipratropium 0.5 mg nebulizers from Q 6 hours to Q 4, continue azithromycin and ceftriaxone for bronchitis and or early pneumonia (started 06/28). Will add guaifenesin 1200 mg p.o. b.i.d., dornase 2.5 mg nebulized q.12 hours and a Cornet flutter valve to help her expectorate her sputum. 07/01 overall the patient states she feels the same as yesterday. Her cough has improved but persists she has no wheezes. White blood cell count 8.7, creatinine 0.4. Plan: I will change her Solu-Medrol to prednisone 40 mg p.o. q.day, I will continue her levalbuterol and ipratropium nebulizers at q.4 hours. no evidence pneumonia on her CT scan and I will discontinue ceftriaxone and continue azithromycin, started 06/28. Continue guaifenesin 1200 mg p.o. b.i.d., dornase 2.5 mg nebulized q.12 hours and a Cornet flutter valve to help her expectorate her sputum. 07/02 Patient states she is slightly improved. She still feels that she has 10% at her normal baseline. She did sleep better and wore the hospital noninvasive ventilator. Her white blood cell count is 9.5, creatinine is 0.4. She has no wheezing and minimal phlegm production. Plan: Continue prednisone 40 ( today is day 5 steroids), increase her albuterol and levalbuterol nebulizers to Q 4 hours. Continue budesonide 500 BID. Continue guaifenesin 1200 mg p.o. b.i.d.. Discontinue dornase is she has minimal response to this after 48 hours. 07/03 The patient continues to slowly improve. She denies cough or phlegm production but is weak and has shortness of breath with activity. Currently the patient is on 1 L nasal cannula saturations 98%. White blood cell count is 11.0, creatinine is 0.5. Home O2 assessment requires 1 L with rest and 3 with ambulation Plan: Today is day 6 of steroids and day 5 of azithromycin and both have been discontinued In anticipation of DC home on
[2022-07-04] MEDS: hydrOXYzine pamoate 25 MG CAPSULE 50 MG PO (16:02)
== END 2022-07-04 17:30 | disposition home or self-care (01) | DRG 140 ==
LOC: ANHIMU 06-30 13:50 → ANH3MEDSUR 07-04 10:23 → ANHIMU 07-07 12:40
PROVIDERS: Internal Medicine Pulmonary Disease; Admitting Provider Family Medicine; PCP Family Medicine; Visit Provider Chiropractor
DX: J43.9 Emphysema, unspecified (principal); J96.22 Acute and chronic respiratory failure with hypercapnia; E46 Unspecified protein-calorie malnutrition; Z99.81 Dependence on supplemental oxygen; R13.10 Dysphagia, unspecified; Z68.1 Body mass index [BMI] 19.9 or less, adult; D64.9 Anemia, unspecified; F41.9 Anxiety disorder, unspecified; M19.90 Unspecified osteoarthritis, unspecified site; F32.A Depression, unspecified; K21.9 Gastro-esophageal reflux disease without esophagitis; G47.30 Sleep apnea, unspecified; F17.210 Nicotine dependence, cigarettes, uncomplicated; Z86.711 Personal history of pulmonary embolism; Z87.442 Personal history of urinary calculi; Z86.718 Personal history of other venous thrombosis and embolism
CPT/HCPCS: 36415; 36600; 71045; 71275; 73090; 73100; 73120; 74220; 80048; 80053; 82103; 82104; 82805; 83735; 85027; 92611; 93306; 93880; 93970; 94002; 94003; 94618; 94640; 94660; 94667; 94762; 97161; A9270; J0456; J0696; J2060; J2920; J2930; J7512; Q9967

== ENCOUNTER 2022-07-31 14:49 | Inpatient (IN) | payer OTHER, SELFPAY ==
[2022-07-31] VITALS (8 sets, daily range): BP systolic 140–155; BP diastolic 88–100; PULSE 108–134; RESP 18–20; TEMP 36.4–36.7; O2SAT 20–100; BMI 15.5
--- NOTE | ~2022-07-31 | XR_ITS ---
XR chest 1V portable DATE: 07/31/2022 20:26 INDICATION: Shortness of breath TECHNIQUE: Portable upright AP chest on 07/31/2022 2022 hours COMPARISON: 06/30/2022 portable AP chest. 06/29/2022 CTA chest FINDINGS: There is very prominent bilateral hyperinflation with flattening of the diaphragm, consiste nt with severe COPD. There is chronic left upper lobe scarring. No pulmonary infiltrate or consolidation, pleural effusion or pulmonary vascular congestion or pneumo thorax. Normal heart size. No hilar or mediastinal enlargement. Diffuse osteopenia. IMPRESSION: Severe COPD with left upper lobe scarring Reviewed, dictated and finalized at location A.
[2022-07-31 15:11] LABS: Alveolar/Arterial O2 Gradient 76.3 mmHg; Base Excess ABG 8.7 mEq/l (+/-2.0); Carboxyhemoglobin 0.4 % THb (0-2.0); Fractional Inspired Oxygen 40 %; Methemoglobin ABG 0.4 %THb (0-1.5); Oxygen Content ABG 16.4 %vol (16.0-22.0); Oxygen Saturation ABG 98.2 % (95.0-100.0); Oxyhemoglobin 96.9 % THb (90.0-100.0); PO2 ABG 126.6 mmHg (80.0-100.0); PO2 FiO2 Ratio Arterial Blood 3.16 %; Reduced Hemoglobin 2.3 %THb (0-5.0); Total Hemoglobin 11.9 g/dL (12.0-18.0); pH ABG 7.331 (7.350-7.450)
[2022-07-31 15:13] LABS: Device NON-INVASIVE VENT; Modified Allen's Test Pass; PCO2 ABG 71.6 mmHg (35.0-45.0); Site Drawn RIGHT RADIAL
[2022-07-31 15:14] LABS: Non-Invasive Expiratory Pressure 8 CMH2O; Non-Invasive Inspiratory Pressure 15 CMH2O; Non-Invasive Vent Rate 16 /MIN
--- NOTE | 2022-07-31 15:15 | PM.IMHP ---
H&P: HPI History of Present Illness Date/Time: 07/31/22 15:15 Chief Complaint: COPD exacerbation, acute on chronic respiratory failure. Narrative: This is a 57-year-old female smoker with severe COPD, chronic hypoxic and hypercapnic respiratory failure on 3 L nasal cannula and AVAPS settings at nighttime, heart failure with preserved ejection fraction grade 1 diastolic dysfunction, DVT and PE in 2019, and hypertension who is being directly admitted to the IMU from [facility] in [place] for pulmonology consultation due to acute on chronic hypercapnic respiratory failure. She was admitted for the same just last month and was discharged on 07/04/2022. At baseline her function status is poor. She gets short of breath with everyday activities. She rarely leaves her apartment as she has to walk up 15 steps to get there. She is on 3 L nasal cannula and she is supposed to wear BiPAP with AVAPS setting at nighttime though it does not sound as though she is always compliant with that. She has felt increasingly short of breath the last couple of days and has been using her rescue inhaler every 4 to 6 hours with lesser and lesser benefit. She apparently has a nebulizer at home but has run out of vitals. This morning she was very anxious and felt as though she could not breathe and she went to the ER. There she was found to have worsening hypercarbia from baseline and she was placed on BiPAP. She was wearing the BiPAP on arrival to [place] but removed did almost immediately and she has been refusing to wear it as it is causing her anxiety and she is requesting pretty high doses of Ativan which she states will lower her to wear the BiPAP. She was given a dose of Ativan but continues to refuse to wear the BiPAP, even when changed to AVAPS settings. She is alert and oriented x4 but is somnolent; she is agreeable to trying Vapotherm, but she understands she may end up intubated if she is not compliant with treatment. She endorses subjective fever last night and some chills but she has not had a documented fever. She has cough productive of clear sputum which is a bit more than usual. She denies sinus congestion sore throat. She is not having any chest or pleuritic pain. No sensations of racing heart. No nausea, vomiting, or diarrhea. Review of Systems Review of Systems: Twelve systems were reviewed and are negative except for as per HPI. [facility] Past Medical History Medical History (Updated 07/31/22 @ 20:12 by Brigitte Espinoza PA-C) Anemia Anxiety Arthritis Chronic obstructive pulmonary disease GOLD stage 4. Chronic respiratory failure with hypoxia and hypercapnia 3 L nasal cannula throughout the day. BiPAP with AVAPS settings at nighttime. Deep venous thrombosis Depression Emphysema of lung Gastroesophageal reflux disease Heart failure with preserved ejection fraction Grade 1 diastolic dysfunction. Kidney stones Pneumonia Pulmonary embolism (2019) Pulmonary hypertension Pulmonary nodules Severe chronic obstructive pulmonary disease Tobacco abuse Surgical History Surgical History (Updated 07/31/22 @ 16:14 by Brigitte Espinoza PA-C) History of arthroscopy of left knee History of elbow surgery History of inguinal hernia repair History of tonsillectomy History of tubal ligation Family History Family History Father , at 46 of lung CA Lung cancer Mother Cerebrovascular accident Grandparent Diabetes mellitus Sibling Lung cancer Social History Social History (Updated 07/31/22 @ 16:17 by Brigitte Espinoza PA-C) Social History: Surrogate medical decision maker: Maria Guadalupe Delgado, daughter. Code status: full code. Smoking packs per day: 2 Smoking cigarettes per day: 40.0 Years smoked: 40 Smoking pack-years: 80.00 Smoking status: Current every day smoker Tobacco type: cigarettes Second hand tobacco smoke
[2022-07-31] MEDS: LORazepam INJ (*CRX) 2 MG/ML VIAL 0.5 MG IV PUSH (16:42)
[2022-07-31] MEDS: busPIRone HCL 5 MG TABLET 15 MG PO (17:25)
[2022-07-31] MEDS: GABAPENTIN 300 MG CAPSULE 600 MG PO (17:26)
[2022-07-31 18:45] LABS: Base Excess ABG 13.5 mEq/l (+/-2.0); Fractional Inspired Oxygen 44 %; HCO3 ABG 42.8 mEq/l (22.0-26.0); Oxygen Content ABG 16.6 %vol (16.0-22.0); Oxygen Saturation ABG 99.4 % (95.0-100.0); Oxyhemoglobin 97.9 % THb (90.0-100.0); PO2 ABG 226.7 mmHg (80.0-100.0); PO2 FiO2 Ratio Arterial Blood 5.15 %; Total Hemoglobin 11.7 g/dL (12.0-18.0); pH ABG 7.322 (7.350-7.450)
[2022-07-31 18:50] LABS: PCO2 ABG 84.6 mmHg (35.0-45.0); Site Drawn RIGHT BRACHIAL
[2022-07-31 18:51] LABS: Device NASAL CANNULA
--- NOTE | 2022-07-31 19:02 | PCRCNOTE ---
RT bushra ABG on patient per Doctor order. Patient was found on 6L NC during ABG draw. RN stated patient wouldn't tolerate the BIPAP. RN placed patient on NC.
--- NOTE | 2022-07-31 20:06 | ECG_ITS ---
Measurements Intervals [place] Rate: 119 P: 91 [place]: 104 QRS: 86 QRSD: 90 T: 81 QT: 311 QTc: 439 Interpretive Statements SINUS TACHYCARDIA WITH SHORT [place] INTERVAL BASELINE ARTIFACT POSSIBLE RIGHT ATRIAL ENLARGEMENT [0.25mV P WAVE] ABNORMAL ECG COMPARED TO ECG 06/25/2021 16:31:52 NO SIGNIFICANT CHANGES Electronically Signed On 08-01-2022 15:19:14 CDT by Morales Oneal M.D.
[2022-07-31] MEDS: FLUTICASONE/SALMETEROL 115-21 MCG INHALER 1 PUFF 2 PUFF INHALATION (20:38)
[2022-07-31 21:08] LABS: Hematocrit 36.4 % (37.0-47.0); Hemoglobin 11.1 g/dL (12.0-15.0); Mean Corpuscular HGB Conc 30.5 g/dl (32-36); Mean Corpuscular Hemoglobin 29.8 pg (26-34); Mean Corpuscular Volume 97.8 fl (80-100); Mean Platelet Volume 9.6 fl (7.4-10.4); Platelet Count Result 438 k/mm3 (150-375); Red Blood Count 3.72 M/mm3 (4.2-5.4); Red Cell Distribution Width 13.4 % (11.5-14.5); White Blood Count 10.6 K/mm3 (4.5-10.0)
[2022-07-31 21:25] LABS: Alanine Aminotransferase 19 U/L (6-35); Albumin Level 3.9 g/dL (3.5-5.1); Alkaline Phosphatase 100 U/L (38-126); Aspartate Amino Transferase 30 U/L (14-36); Bilirubin,Total 0.4 mg/dL (0.2-1.3); Blood Urea Nitrogen 14 mg/dL (7-17); Calcium 8.8 mg/dL (8.4-10.2); Carbon Dioxide > 40 mmol/L (22-30); Chloride 88 mmol/L (98-107); Estimated CRCL calculation 88 ml/min; Estimated Glomerular Filt Rate > 60; Glucose 86 mg/dL (65-110); Potassium 4.2 mmol/L (3.4-5.0); Sodium 133 mmol/L (137-145)
[2022-07-31] MEDS: MONTELUKAST SODIUM 10 MG TABLET PO (21:26)
[2022-07-31 21:41] LABS: D Dimer 0.28 ug/mL (<0.48)
[2022-07-31 21:50] LABS: Thyroid Stimulating Hormone Reflex 0.302 uIU/mL (0.465-4.68)
[2022-07-31 22:29] LABS: Alveolar/Arterial O2 Gradient 110.1 mmHg; Fractional Inspired Oxygen 40 %; HCO3 ABG 44.2 mEq/l (22.0-26.0); Oxygen Content ABG 15.6 %vol (16.0-22.0); Oxygen Saturation ABG 96.2 % (95.0-100.0); Oxyhemoglobin 95.7 % THb (90.0-100.0); PO2 ABG 88.2 mmHg (80.0-100.0); Total Hemoglobin 11.5 g/dL (12.0-18.0); pH ABG 7.385 (7.350-7.450)
[2022-07-31 22:43] LABS: Device HIGH FLOW THERAPY; Modified Allen's Test Pass; PCO2 ABG 75.6 mmHg (35.0-45.0); Site Drawn LEFT RADIAL
[2022-07-31 22:55] LABS: Free T4 Free Thyroxine Reflex 0.91 ng/dL (0.78-2.19)
[2022-07-31 23:36] LABS: Total Triiodothyronine (T3) 1.02 NG/ML (0.97-1.69)
[2022-08-01] VITALS (24 sets, daily range): BP systolic 109–160; BP diastolic 70–107; PULSE 89–119; RESP 20–24; TEMP 36.2–36.8; O2SAT 92–99
[2022-08-01] MEDS: ACETAMINOPHEN 325 MG TABLET 650 MG PO (00:28)
--- NOTE | 2022-08-01 01:07 | PC.NURSE ---
Gallito Santiago RT called with critical results of PCO2 of 75.6 at 2242 to Brigitte Espinoza.
[2022-08-01] MEDS: LORazepam INJ (*CRX) 2 MG/ML VIAL 1 MG IV PUSH (01:38)
[2022-08-01] MEDS: LEVALBUTEROL NEB 1.25 MG/3 ML INHALATION ×3 (02:22→14:06)
[2022-08-01] MEDS: GABAPENTIN 300 MG CAPSULE 600 MG PO ×3 (08:00→17:45)
[2022-08-01] MEDS: ENOXAPARIN 40 MG/0.4 ML SYRINGE SUB-Q (08:00)
[2022-08-01] MEDS: busPIRone HCL 5 MG TABLET 15 MG PO ×2 (08:00→20:01)
[2022-08-01] MEDS: METOPROLOL SUCCINATE EXT REL 25 MG TABCR PO (08:00)
[2022-08-01] MEDS: PANTOPRAZOLE 40 MG TABLET PO (08:00)
[2022-08-01] MEDS: VENLAFAXINE HCL XR 75 MG CAP.ER.24H 150 MG PO (08:00)
[2022-08-01] MEDS: FLUTICASONE/SALMETEROL 115-21 MCG INHALER 1 PUFF 2 PUFF INHALATION ×2 (08:07→20:30)
[2022-08-01] MEDS: HYDROcodone/acetaminophen (*CRX) 7.5-325 MG TABLET 1 TAB PO ×3 (11:45→21:57)
[2022-08-01 11:48] LABS: Alveolar/Arterial O2 Gradient 93.6 mmHg; Base Excess ABG 12.8 mEq/l (+/-2.0); Carboxyhemoglobin 0.1 % THb (0-2.0); Fractional Inspired Oxygen 32 %; HCO3 ABG 40.5 mEq/l (22.0-26.0); Methemoglobin ABG 0.3 %THb (0-1.5); Oxygen Content ABG 15.3 %vol (16.0-22.0); PO2 ABG 55.5 mmHg (80.0-100.0); PO2 FiO2 Ratio Arterial Blood 1.73 %; Reduced Hemoglobin 11.6 %THb (0-5.0); Total Hemoglobin 12.4 g/dL (12.0-18.0); pH ABG 7.395 (7.350-7.450)
[2022-08-01 11:50] LABS: PCO2 ABG 67.6 mmHg (35.0-45.0)
[2022-08-01 11:54] LABS: Oxygen Saturation ABG 87.6 % (95.0-100.0)
[2022-08-01 11:55] LABS: Device HIGH FLOW THERAPY; Site Drawn LEFT BRACHIAL
--- NOTE | 2022-08-01 12:39 | PM.IMPN ---
Progress Note: A&P Assessment and Plan (1) Acute and chronic respiratory failure with hypercapnia: Code(s): J96.22 - Acute and chronic respiratory failure with hypercapnia Status: Acute Assessment and Plan: Unclear why she has decompensated however I am concerned that she is not compliant with her BiPAP/AVAPS at nighttime. Currently she is refusing to wear noninvasive ventilation and understands that she may very well end up being intubated and that it may be difficult to get her off the vent if we went down that road. This is despite her receiving lorazepam and her usual buspirone to help with her anxiety. She is agreeable to try Vapotherm and we will repeat blood gas this evening. We appreciate Pulmonary consult (2) Chronic obstructive pulmonary disease: Code(s): J44.9 - Chronic obstructive pulmonary disease, unspecified Status: Acute Assessment and Plan: Continue scheduled updrafts and maintenance inhalers. (3) Tobacco abuse: Code(s): Z72.0 - Tobacco use Status: Acute Assessment and Plan: Smoking cessation is imperative and was discussed though she is not interested in quitting. Declines the need for nicotine patch. (4) Anxiety: Code(s): F41.9 - Anxiety disorder, unspecified Status: Chronic Assessment and Plan: Continue buspirone and venlafaxine. (5) Tachycardia: Code(s): R00.0 - Tachycardia, unspecified Status: Acute Assessment and Plan: Could very well be related to anxiety. She has not had a nebulizer treatment since arrival to this facility. Pulmonary embolism is considered and she does have a history of such however history does not seem consistent. Check EKG, TSH. Consider CTA of the chest if no improvement. Subjective Date/time seen: 08/01/22 12:39 Patient denies any new complaints. She is notably short of breath, but this is a chronic issue for her. Exam Narrative: General: Thin, frail female appearing older than her stated age lying on the right side in bed. Weight: 43.6 kg. BMI: 15.5. HEENT: PERRL, EOMI. Sclera anicteric. Oral mucosa moist. Neck: Supple. No JVD. Respiratory: Demonstrates mild conversational dyspnea, speaking in 5 to 6 word sentences. Occasional pursed lip breathing. Occasional accessory muscle use as well. Lung sounds are significantly diminished throughout with expiratory wheezing. Cardiovascular: Regular rate and rhythm with S1-S2. Gastrointestinal: Abdomen is soft, flat, nontender, and nondistended with positive bowel sounds. Skin: Warm and dry. No rash or lesions on limited exam. Extremities: No cyanosis, clubbing, or edema. Radial and pedal pulses intact. Neurological: Alert and oriented x4. Cranial nerves 2-12 are grossly intact. No gross focal deficits to casual conversation. Psychiatric: Appropriate mood. Mildly anxious. Objective Data Vital Signs Vital Signs: Vital Signs - 24 hr 07/31/22 15:13 07/31/22 14:51 07/31/22 16:16 Temperature 97.7 F Pulse Rate 134 H 134 H 131 H Respiratory Rate 19 20 20 Blood Pressure 155/100 H Pulse Oximetry 100 100 98 Oxygen Delivery BiPAP BiPAP Oxygen Flow Rate Fraction of Inspired Oxygen 07/31/22 16:00 07/31/22 16:00 07/31/22 18:00 Temperature 97.5 F L Pulse Rate 126 H 126 H 116 H Respiratory Rate 18 Blood Pressure 142/94 H Pulse Oximetry 100 Oxygen Delivery Oxygen Flow Rate Fraction of Inspired Oxygen 07/31/22 20:00 07/31/22 20:00 07/31/22 20:00 Temperature 97.5 F L Pulse Rate 116 H 116 H 116 H Respiratory Rate 20 20 Blood Pressure 140/88 Pulse Oximetry 20 L 100 Oxygen Delivery Nasal Cannula Oxygen Flow Rate 3 Fraction of Inspired Oxygen 07/31/22 23:47 08/01/22 00:00 08/01/22 02:22 Temperature 98.1 F Pulse Rate 108 H 110 H 119 H Respiratory Rate 20 20 24 H Blood Pressure 149/89 H Pulse Oximetry 100 95 Oxygen Delivery High Flow Nasal Cannula Oxygen
[2022-08-01] MEDS: hydrOXYzine pamoate 25 MG CAPSULE 50 MG PO (16:26)
[2022-08-01] MEDS: MONTELUKAST SODIUM 10 MG TABLET PO (20:01)
[2022-08-02] VITALS (28 sets, daily range): BP systolic 116–146; BP diastolic 77–93; PULSE 86–115; RESP 18–24; TEMP 36.1–36.9; O2SAT 92–100
[2022-08-02] MEDS: LEVALBUTEROL NEB 1.25 MG/3 ML INHALATION ×4 (02:21→20:42)
[2022-08-02] MEDS: HYDROcodone/acetaminophen (*CRX) 7.5-325 MG TABLET 1 TAB PO ×4 (03:48→21:48)
[2022-08-02 05:10] LABS: Blood Urea Nitrogen 19 mg/dL (7-17); Calcium 8.2 mg/dL (8.4-10.2); Carbon Dioxide > 40 mmol/L (22-30); Chloride 87 mmol/L (98-107); Estimated CRCL calculation 75 ml/min; Estimated Glomerular Filt Rate > 60; Glucose 97 mg/dL (65-110); Potassium 4.1 mmol/L (3.4-5.0); Sodium 132 mmol/L (137-145)
[2022-08-02 05:32] LABS: Alveolar/Arterial O2 Gradient 41.2 mmHg; Base Excess ABG 13.6 mEq/l (+/-2.0); Carboxyhemoglobin 0.3 % THb (0-2.0); Fractional Inspired Oxygen 28 %; HCO3 ABG 42.5 mEq/l (22.0-26.0); Methemoglobin ABG 0.2 %THb (0-1.5); Oxygen Content ABG 15.5 %vol (16.0-22.0); Oxygen Saturation ABG 90.9 % (95.0-100.0); Oxyhemoglobin 91.2 % THb (90.0-100.0); PO2 ABG 65.6 mmHg (80.0-100.0); PO2 FiO2 Ratio Arterial Blood 2.34 %; Reduced Hemoglobin 8.3 %THb (0-5.0); Total Hemoglobin 12.1 g/dL (12.0-18.0)
[2022-08-02 05:34] LABS: Device NASAL CANNULA; PCO2 ABG 78.7 mmHg (35.0-45.0); Site Drawn LEFT BRACHIAL
[2022-08-02] MEDS: FLUTICASONE/SALMETEROL 115-21 MCG INHALER 1 PUFF 2 PUFF INHALATION ×2 (07:53→20:42)
[2022-08-02] MEDS: UMECLIDINIUM BROMIDE 62.5 MCG ELLIPTA 1 PUFF INHALATION (07:53)
[2022-08-02] MEDS: VENLAFAXINE HCL XR 75 MG CAP.ER.24H 150 MG PO (09:17)
[2022-08-02] MEDS: METOPROLOL SUCCINATE EXT REL 25 MG TABCR PO (09:17)
[2022-08-02] MEDS: GABAPENTIN 300 MG CAPSULE 600 MG PO ×3 (09:17→17:43)
[2022-08-02] MEDS: PANTOPRAZOLE 40 MG TABLET PO (09:17)
[2022-08-02] MEDS: ENOXAPARIN 40 MG/0.4 ML SYRINGE SUB-Q (09:18)
[2022-08-02] MEDS: busPIRone HCL 5 MG TABLET 15 MG PO ×2 (09:18→21:40)
--- NOTE | 2022-08-02 12:04 | PM.IMPN ---
Progress Note: A&P Assessment and Plan (1) Acute and chronic respiratory failure with hypercapnia: Code(s): J96.22 - Acute and chronic respiratory failure with hypercapnia Status: Acute Assessment and Plan: Unclear why she has decompensated however I am concerned that she is not compliant with her BiPAP/AVAPS at nighttime. Patient reports she used her AVAPS overnight. ABG noted. Respiratory status appears to be okay this morning. Will await Pulmonary to evaluate the patient as they know the patient well. Otherwise it appears she might be compensated at her baseline. I think this exacerbation was likely related to noncompliance. She did admit to not wearing her AVAPS at home. (2) Chronic obstructive pulmonary disease: Code(s): J44.9 - Chronic obstructive pulmonary disease, unspecified Status: Acute Assessment and Plan: Continue scheduled updrafts and maintenance inhalers. (3) Tobacco abuse: Code(s): Z72.0 - Tobacco use Status: Acute Assessment and Plan: Smoking cessation is imperative and was discussed though she is not interested in quitting. Declines the need for nicotine patch. (4) Anxiety: Code(s): F41.9 - Anxiety disorder, unspecified Status: Chronic Assessment and Plan: Continue buspirone and venlafaxine. (5) Tachycardia: Code(s): R00.0 - Tachycardia, unspecified Status: Acute Assessment and Plan: Could very well be related to anxiety. She has not had a nebulizer treatment since arrival to this facility. Pulmonary embolism is considered and she does have a history of such however history does not seem consistent. Check EKG, TSH. Consider CTA of the chest if no improvement. Subjective Date/time seen: 08/02/22 12:04 Patient appears to be breathing okay today. Exam Narrative: General: Thin, frail female appearing older than her stated age lying on the right side in bed. Weight: 43.6 kg. BMI: 15.5. HEENT: PERRL, EOMI. Sclera anicteric. Oral mucosa moist. Neck: Supple. No JVD. Respiratory: Demonstrates mild conversational dyspnea, speaking in 5 to 6 word sentences. Occasional pursed lip breathing. Occasional accessory muscle use as well. Lung sounds are significantly diminished throughout with expiratory wheezing. Cardiovascular: Regular rate and rhythm with S1-S2. Gastrointestinal: Abdomen is soft, flat, nontender, and nondistended with positive bowel sounds. Skin: Warm and dry. No rash or lesions on limited exam. Extremities: No cyanosis, clubbing, or edema. Radial and pedal pulses intact. Neurological: Alert and oriented x4. Cranial nerves 2-12 are grossly intact. No gross focal deficits to casual conversation. Psychiatric: Appropriate mood. Mildly anxious. Objective Data Vital Signs Vital Signs: Vital Signs - 24 hr 08/01/22 12:37 08/01/22 14:08 08/01/22 14:13 Temperature 97.1 F L Pulse Rate 109 H 105 H 111 H Respiratory Rate 20 20 20 Blood Pressure 114/81 Pulse Oximetry 97 Oxygen Delivery Oxygen Flow Rate 08/01/22 14:00 08/01/22 16:24 08/01/22 16:00 Temperature 98.3 F Pulse Rate 104 H 104 H 106 H Respiratory Rate 20 Blood Pressure 109/70 Pulse Oximetry 97 Oxygen Delivery Oxygen Flow Rate 08/01/22 18:00 08/01/22 20:00 08/01/22 20:36 Temperature 97.2 F L Pulse Rate 89 110 H Respiratory Rate 20 Blood Pressure 157/97 H Pulse Oximetry 92 97 Oxygen Delivery Nasal Cannula Oxygen Flow Rate 2 08/01/22 20:00 08/01/22 20:00 08/01/22 22:00 Temperature Pulse Rate 114 H 114 H 101 H Respiratory Rate 20 Blood Pressure Pulse Oximetry 99 Oxygen Delivery Nasal Cannula Oxygen Flow Rate 3 08/01/22 23:11 08/02/22 00:00 08/02/22 00:00 Temperature 97.4 F L Pulse Rate 104 H 94 101 H Respiratory Rate 20 20 Blood Pressure 160/98 H Pulse Oximetry 98 100 Oxygen Delivery Nasal Cannula Oxygen Flow Rate 2 08/02/22 0
[2022-08-02] MEDS: hydrOXYzine pamoate 25 MG CAPSULE 50 MG PO (17:42)
[2022-08-02] MEDS: MONTELUKAST SODIUM 10 MG TABLET PO (21:41)
[2022-08-03] VITALS (21 sets, daily range): BP systolic 108–139; BP diastolic 78–89; PULSE 82–98; RESP 16–24; TEMP 36.1–36.7; O2SAT 97–100; BMI 16.1
[2022-08-03] MEDS: hydrOXYzine pamoate 25 MG CAPSULE 50 MG PO ×2 (00:20→16:38)
[2022-08-03] MEDS: LEVALBUTEROL NEB 1.25 MG/3 ML INHALATION ×2 (02:19→09:23)
[2022-08-03 05:38] LABS: Alveolar/Arterial O2 Gradient 38.3 mmHg; Base Excess ABG 9.2 mEq/l (+/-2.0); Carboxyhemoglobin 0.6 % THb (0-2.0); Fractional Inspired Oxygen 28 %; HCO3 ABG 37.5 mEq/l (22.0-26.0); Methemoglobin ABG 0.3 %THb (0-1.5); Oxygen Content ABG 15.6 %vol (16.0-22.0); Oxygen Saturation ABG 93.5 % (95.0-100.0); Oxyhemoglobin 93.1 % THb (90.0-100.0); PO2 ABG 75.2 mmHg (80.0-100.0); PO2 FiO2 Ratio Arterial Blood 2.69 %; Total Hemoglobin 11.9 g/dL (12.0-18.0); pH ABG 7.329 (7.350-7.450)
[2022-08-03 05:41] LABS: Site Drawn RIGHT BRACHIAL
[2022-08-03 05:42] LABS: Non-Invasive Vent Rate 20 /MIN
[2022-08-03 05:44] LABS: Device NON-INVASIVE VENT; Non-Invasive Expiratory Pressure 6 CMH2O; Non-Invasive Inspiratory Pressure 25 CMH2O
[2022-08-03 05:45] LABS: Blood Urea Nitrogen 13 mg/dL (7-17); Calcium 8.6 mg/dL (8.4-10.2); Carbon Dioxide > 40 mmol/L (22-30); Chloride 89 mmol/L (98-107); Estimated CRCL calculation 75 ml/min; Estimated Glomerular Filt Rate > 60; Glucose 112 mg/dL (65-110); Potassium 4.6 mmol/L (3.4-5.0); Sodium 134 mmol/L (137-145)
[2022-08-03] MEDS: HYDROcodone/acetaminophen (*CRX) 7.5-325 MG TABLET 1 TAB PO ×3 (08:12→21:09)
[2022-08-03] MEDS: METOPROLOL SUCCINATE EXT REL 25 MG TABCR PO (08:13)
[2022-08-03] MEDS: ENOXAPARIN 40 MG/0.4 ML SYRINGE SUB-Q (08:14)
[2022-08-03] MEDS: VENLAFAXINE HCL XR 75 MG CAP.ER.24H 150 MG PO (08:14)
[2022-08-03] MEDS: polyethylene glycoL 3350 17 GM POWD.PACK BY MOUTH (08:15)
[2022-08-03] MEDS: GABAPENTIN 300 MG CAPSULE 600 MG PO ×3 (08:15→16:38)
[2022-08-03] MEDS: PANTOPRAZOLE 40 MG TABLET PO (08:15)
--- NOTE | 2022-08-03 09:18 | PCRCNOTE ---
Requesting Trilogy download from [employer] for Joe Galvez will fax justin.
[2022-08-03] MEDS: FLUTICASONE/SALMETEROL 115-21 MCG INHALER 1 PUFF 2 PUFF INHALATION ×2 (09:23→20:34)
[2022-08-03] MEDS: UMECLIDINIUM BROMIDE 62.5 MCG ELLIPTA 1 PUFF INHALATION (09:23)
--- NOTE | 2022-08-03 11:01 | PM.CNPUL ---
Assessment and Plan Assessment and plan (1) Chronic obstructive pulmonary disease: Code(s): J44.9 - Chronic obstructive pulmonary disease, unspecified Status: Acute (2) Chronic respiratory failure with hypoxia and hypercapnia: Code(s): J96.11 - Chronic respiratory failure with hypoxia; J96.12 - Chronic respiratory failure with hypercapnia Status: Acute Assessment and Plan: 57-year-old with a history of GOLD grade 4 group E COPD? 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 air trapping, hyperinflation and decreased DLCO from PFTs on 02/14/2020) on 1 L at rest and 3 L with ambulation at home,? severe panlobular emphysema all lung andrea on CT scan of the chest 07/02/2021,? and history of hypercarbic hypoxemic respiratory failure in the past started on home NIV 07/04/2022 (through [facility]), HFpEF with grade 1 diastolic dysfunction,? DVT and PE in 2019 and eliquis DC on 07/01/20 with recent falls?with fractured left wrist 01/2021, fractured knee 12/2021 and fractured right wrist 06/30/22. She is maintained on Symbicort 160-4.5 at 2 puffs b.i.d. and increase elipta at 62.5 at 1 puff q.day.? Patient also takes montelukast 10 mg a day. 07/03/22: Patient wore AVAPS rate of 20, tidal volume 500, EPAP 4, minimal inspiratory pressure 5, maximal inspiratory pressure 25, inspiratory time 1 sec, rise of 5 which is the slowest and 28% with a blood gas the following morning prior to removal of the machine of 7.35/84/81. Ideally I would have liked to increase the minute ventilation but she could not tolerate a higher rate or more pressure. At baseline patient states that she can walk room to room and this has been unchanged over the last year.? She was last admitted to the hospital approximately 1 year ago for COPD exacerbation and when she fell and broke her knee on 01/30/2022. ? she was admitted to the hospital and had breathing trouble.? She also had covid at that time. ? Patient smokes tobacco from age 15 to current.? She had smoked 2 packs per day for total of 84 pack years and has recently cut down to 1/2 pack per day.? Patient was exposed to secondhand smoke for both of her parents but none currently.? Patient denies occupational exposures. Patient was admitted to the hospital from 06/28/2022 through 07/04/2022. She was treated for COPD exacerbation and was initiated on home noninvasive ventilation with AVAPS-AE mode through [facility] with respiratory rate of 20, tidal volume 500, minimal EPAP 4, maximal EPAP 15, minimum pressure support 5, maximal pressure support 25, maximal pressure 35 and 2 L bleed in. this was delivered to the hospital and she wore this 1 night in the hospital prior to her going home and did well. 08/03/22: Currently the patient admits to noncompliance with her noninvasive ventilation. I will obtain a download from [employer] to document her compliance. Patient tolerated the hospital noninvasive ventilator last night with a blood gas this morning prior to removal of 7.33/73/75. This represents adequate oxygenation and ventilation. Patient tells me she cannot have her current relative who she lives with bring her home machine in because she is worried that he will ruin in the machine. Patient currently states she is about 40% back to her normal. She has no wheezes and I will place her on her home regimen of Symbicort 160- 4.5 at 2 puffs b.i.d. and incruse ellipta 62.5 at 1 puff q.day. continue montelukast 10 mg p.o. q.h.s.. At this time I will hold off on antibiotics and systemic steroids as I am not convinced she has a COPD exacerbation. Patient has very severe disease essentially bedbound and I was hoping that adding noninvasive ventilation at night to her medical regimen on last admission from 06/28 through 07/04/2022 would keep her out of the hospital. Patient has a very difficult social situation, currently living with her
--- NOTE | 2022-08-03 12:21 | PM.IMPN ---
Progress Note: A&P Assessment and Plan (1) Acute and chronic respiratory failure with hypercapnia: Code(s): J96.22 - Acute and chronic respiratory failure with hypercapnia Status: Acute Assessment and Plan: Unclear why she has decompensated however I am concerned that she is not compliant with her BiPAP/AVAPS at nighttime. Patient reports she used her AVAPS overnight. ABG noted. Respiratory status appears to be okay this morning. Will await Pulmonary to evaluate the patient as they know the patient well. Otherwise it appears she might be compensated at her baseline. I think this exacerbation was likely related to noncompliance. She did admit to not wearing her AVAPS at home. (2) Chronic obstructive pulmonary disease: Code(s): J44.9 - Chronic obstructive pulmonary disease, unspecified Status: Acute Assessment and Plan: Continue scheduled updrafts and maintenance inhalers. (3) Tobacco abuse: Code(s): Z72.0 - Tobacco use Status: Acute Assessment and Plan: Smoking cessation is imperative and was discussed though she is not interested in quitting. Declines the need for nicotine patch. (4) Anxiety: Code(s): F41.9 - Anxiety disorder, unspecified Status: Chronic Assessment and Plan: Continue buspirone and venlafaxine. (5) Tachycardia: Code(s): R00.0 - Tachycardia, unspecified Status: Acute Assessment and Plan: Could very well be related to anxiety. She has not had a nebulizer treatment since arrival to this facility. Pulmonary embolism is considered and she does have a history of such however history does not seem consistent. Check EKG, TSH. Consider CTA of the chest if no improvement. Subjective Date/time seen: 08/03/22 12:21 No complaints Exam Narrative: General: Thin, frail female appearing older than her stated age lying on the right side in bed. Weight: 43.6 kg. BMI: 15.5. HEENT: PERRL, EOMI. Sclera anicteric. Oral mucosa moist. Neck: Supple. No JVD. Respiratory: Demonstrates mild conversational dyspnea, speaking in 5 to 6 word sentences. Occasional pursed lip breathing. Occasional accessory muscle use as well. Lung sounds are significantly diminished throughout with expiratory wheezing. Cardiovascular: Regular rate and rhythm with S1-S2. Gastrointestinal: Abdomen is soft, flat, nontender, and nondistended with positive bowel sounds. Skin: Warm and dry. No rash or lesions on limited exam. Extremities: No cyanosis, clubbing, or edema. Radial and pedal pulses intact. Neurological: Alert and oriented x4. Cranial nerves 2-12 are grossly intact. No gross focal deficits to casual conversation. Psychiatric: Appropriate mood. Mildly anxious. Objective Data Vital Signs Vital Signs: Vital Signs - 24 hr 08/02/22 14:21 08/02/22 14:29 08/02/22 15:12 Temperature 97.3 F L Pulse Rate 95 92 97 Respiratory Rate 18 18 20 Blood Pressure 142/91 H Pulse Oximetry 93 Oxygen Delivery Oxygen Flow Rate Fraction of Inspired Oxygen 08/02/22 14:00 08/02/22 15:54 08/02/22 16:00 Temperature Pulse Rate 90 95 Respiratory Rate Blood Pressure Pulse Oximetry 100 Oxygen Delivery Nasal Cannula Oxygen Flow Rate 2 Fraction of Inspired Oxygen 08/02/22 18:00 08/02/22 20:42 08/02/22 20:43 Temperature Pulse Rate 96 92 Respiratory Rate 18 Blood Pressure Pulse Oximetry 100 Oxygen Delivery Nasal Cannula Oxygen Flow Rate 3 Fraction of Inspired Oxygen 08/02/22 20:00 08/02/22 20:00 08/02/22 20:00 Temperature 97.6 F Pulse Rate 101 H 101 H 91 Respiratory Rate 20 20 Blood Pressure 145/78 H Pulse Oximetry 98 98 Oxygen Delivery Nasal Cannula Oxygen Flow Rate 3 Fraction of Inspired Oxygen 08/02/22 22:00 08/02/22 23:34 08/03/22 00:00 Temperature 97.6 F Pulse Rate 96 98 98 Respiratory Rate 22 H 22 H Blood Pressure 134/93 H Pulse Oximetry 100 1
--- NOTE | 2022-08-03 13:03 | PCPTNOTE ---
Spoke with hospitalist who OK the removal of Bedrest orders - RN made aware.
[2022-08-03] MEDS: busPIRone HCL 5 MG TABLET 15 MG PO ×2 (13:05→21:05)
--- NOTE | 2022-08-03 17:29 | PC.NURSE ---
orders to transfer to med/surg- report given to Blanca RN- pt to transfer via bed with O2 on 3 l/nc-accompanied by staff to room 328- belongings with pt
--- NOTE | 2022-08-03 18:00 | PC.NURSE ---
This patient, Sharifa Mosquera, was received from IMU [id number] on 08/03/22 at 1800. Patient/family oriented to unit policies and routines. Report received from Daphnie CRUZ.
[2022-08-03] MEDS: LEVALBUTEROL NEB 1.25 MG/3 ML (20:50)
[2022-08-03] MEDS: MONTELUKAST SODIUM 10 MG TABLET PO (21:10)
[2022-08-04] VITALS (14 sets, daily range): BP systolic 124–133; BP diastolic 76–82; PULSE 88–102; RESP 16–25; TEMP 36.2–36.6; O2SAT 87–100
[2022-08-04] MEDS: LEVALBUTEROL NEB 1.25 MG/3 ML INHALATION (02:06)
--- NOTE | 2022-08-04 08:07 | P.CDI_ITS ---
CDI Query Clarification Request * Severe <Hany Londono MD - Last Filed: 08/04/22 10:24> Clarified Diagnosis Clarified Diagnosis: BMI 16.1 Nutritional Diagnostic Statement Severe protein calorie malnutrition related to chronic illness COPD as evidence by severe muscle wasting and fat loss; intake <75% needs >1 month. Please refer to the Comprehensive Nutrition Assessment for more information. Please clarify severity of protein calorie malnutrition if known * Mild * Moderate * Severe * Other/Unspecified <Emily Bowens RN - Last Filed: 08/04/22 08:14>
[2022-08-04] MEDS: HYDROcodone/acetaminophen (*CRX) 7.5-325 MG TABLET 1 TAB PO ×3 (08:15→22:10)
[2022-08-04] MEDS: polyethylene glycoL 3350 17 GM POWD.PACK BY MOUTH (08:16)
[2022-08-04] MEDS: GABAPENTIN 300 MG CAPSULE 600 MG PO ×3 (08:16→16:07)
[2022-08-04] MEDS: busPIRone HCL 5 MG TABLET 15 MG PO ×2 (08:17→20:45)
[2022-08-04] MEDS: ENOXAPARIN 40 MG/0.4 ML SYRINGE SUB-Q (08:17)
[2022-08-04] MEDS: VENLAFAXINE HCL XR 75 MG CAP.ER.24H 150 MG PO (08:17)
[2022-08-04] MEDS: PANTOPRAZOLE 40 MG TABLET PO (08:17)
[2022-08-04] MEDS: METOPROLOL SUCCINATE EXT REL 25 MG TABCR PO (08:18)
[2022-08-04] MEDS: FLUTICASONE/SALMETEROL 115-21 MCG INHALER 1 PUFF 2 PUFF INHALATION ×2 (08:49→20:30)
[2022-08-04] MEDS: UMECLIDINIUM BROMIDE 62.5 MCG ELLIPTA 1 PUFF INHALATION (08:49)
--- NOTE | 2022-08-04 11:23 | PM.IMPN ---
Progress Note: A&P Assessment and Plan (1) Acute and chronic respiratory failure with hypercapnia: Code(s): J96.22 - Acute and chronic respiratory failure with hypercapnia Status: Acute Assessment and Plan: Unclear why she has decompensated however I am concerned that she is not compliant with her BiPAP/AVAPS at nighttime. Patient reports she used her AVAPS overnight. ABG noted. Respiratory status appears to be okay this morning. Will await Pulmonary to evaluate the patient as they know the patient well. Otherwise it appears she might be compensated at her baseline. I think this exacerbation was likely related to noncompliance. She did admit to not wearing her AVAPS at home. (2) Chronic obstructive pulmonary disease: Code(s): J44.9 - Chronic obstructive pulmonary disease, unspecified Status: Acute Assessment and Plan: Continue scheduled updrafts and maintenance inhalers. (3) Tobacco abuse: Code(s): Z72.0 - Tobacco use Status: Acute Assessment and Plan: Smoking cessation is imperative and was discussed though she is not interested in quitting. Declines the need for nicotine patch. (4) Anxiety: Code(s): F41.9 - Anxiety disorder, unspecified Status: Chronic Assessment and Plan: Continue buspirone and venlafaxine. (5) Tachycardia: Code(s): R00.0 - Tachycardia, unspecified Status: Acute Assessment and Plan: Could very well be related to anxiety. She has not had a nebulizer treatment since arrival to this facility. Pulmonary embolism is considered and she does have a history of such however history does not seem consistent. Check EKG, TSH. Consider CTA of the chest if no improvement. Plan Likely discharge in 1-2 days. Pulmonary has signed off, recommendations in chart. Subjective Date/time seen: 08/04/22 11:23 No new complaints. Exam Narrative: General: Thin, frail female appearing older than her stated age lying on the right side in bed. Weight: 43.6 kg. BMI: 15.5. HEENT: PERRL, EOMI. Sclera anicteric. Oral mucosa moist. Neck: Supple. No JVD. Respiratory: Demonstrates mild conversational dyspnea, speaking in 5 to 6 word sentences. Occasional pursed lip breathing. Occasional accessory muscle use as well. Lung sounds are significantly diminished throughout with expiratory wheezing. Cardiovascular: Regular rate and rhythm with S1-S2. Gastrointestinal: Abdomen is soft, flat, nontender, and nondistended with positive bowel sounds. Skin: Warm and dry. No rash or lesions on limited exam. Extremities: No cyanosis, clubbing, or edema. Radial and pedal pulses intact. Neurological: Alert and oriented x4. Cranial nerves 2-12 are grossly intact. No gross focal deficits to casual conversation. Psychiatric: Appropriate mood. Mildly anxious. Objective Data Vital Signs Vital Signs: Vital Signs - 24 hr 08/03/22 13:43 08/03/22 14:09 08/03/22 16:00 Temperature 97.0 F L Pulse Rate 90 Respiratory Rate 20 Blood Pressure 133/81 Pulse Oximetry 100 Oxygen Delivery Nasal Cannula Nasal Cannula Oxygen Flow Rate 2 3 Fraction of Inspired Oxygen 08/03/22 18:00 08/03/22 20:42 08/03/22 20:00 Temperature 97.7 F Pulse Rate 92 96 96 Respiratory Rate 20 24 H 24 H Blood Pressure 126/86 Pulse Oximetry 98 98 Oxygen Delivery Nasal Cannula Oxygen Flow Rate 3 Fraction of Inspired Oxygen 28 08/03/22 22:00 08/04/22 02:17 08/04/22 02:19 Temperature 98.1 F Pulse Rate 97 102 H 98 Respiratory Rate 16 25 H 25 H Blood Pressure 132/85 Pulse Oximetry 100 99 Oxygen Delivery BiPAP Oxygen Flow Rate Fraction of Inspired Oxygen 08/04/22 04:50 08/03/22 21:00 08/04/22 02:40 Temperature Pulse Rate 102 H 90 94 Respiratory Rate 22 H 20 22 H Blood Pressure Pulse Oximetry 99 Oxygen Delivery BiPAP Oxygen Flow Rate Fraction of Inspired Oxygen 08/04/22 05:42 08/04/22 08:1
[2022-08-04] MEDS: hydrOXYzine pamoate 25 MG CAPSULE 50 MG PO ×2 (12:37→20:54)
[2022-08-04] MEDS: MONTELUKAST SODIUM 10 MG TABLET PO (20:45)
[2022-08-05] VITALS (9 sets, daily range): BP systolic 120–140; BP diastolic 74–88; PULSE 87–100; RESP 14–20; TEMP 36.3–36.4; O2SAT 91–100
[2022-08-05] MEDS: MAGNES & ALUM HYD/SIMETH/DIPHENHYD/LIDOCAINE 119 ML MOUTHWASH BY MOUTH ×5 (01:47→20:29)
[2022-08-05] MEDS: BENZOCAINE 20% DENTAL GEL 9 GM TUBE 1 APPLIC BY MOUTH (01:49)
[2022-08-05] MEDS: HYDROcodone/acetaminophen (*CRX) 7.5-325 MG TABLET 1 TAB PO ×3 (05:53→18:36)
--- NOTE | 2022-08-05 08:51 | PM.PNPUL ---
Progress Note: A&P Assessment and Plan (1) Chronic obstructive pulmonary disease: Code(s): J44.9 - Chronic obstructive pulmonary disease, unspecified Status: Acute Assessment and Plan: 57-year-old with a history of GOLD grade 4 group E COPD? 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 air trapping, hyperinflation and decreased DLCO from PFTs on 02/14/2020) on 1 L at rest and 3 L with ambulation at home,? severe panlobular emphysema all lung andrea on CT scan of the chest 07/02/2021,? and history of hypercarbic hypoxemic respiratory failure in the past started on home NIV 07/04/2022 (through [facility]), HFpEF with grade 1 diastolic dysfunction,? DVT and PE in 2019 and eliquis DC on 07/01/20 with recent falls?with fractured left wrist 01/2021, fractured knee 12/2021 and fractured right wrist 06/30/22. She is maintained on Symbicort 160-4.5 at 2 puffs b.i.d. and increase elipta at 62.5 at 1 puff q.day.? Patient also takes montelukast 10 mg a day. 07/03/22: Patient wore AVAPS rate of 20, tidal volume 500, EPAP 4, minimal inspiratory pressure 5, maximal inspiratory pressure 25, inspiratory time 1 sec, rise of 5 which is the slowest and 28% with a blood gas the following morning prior to removal of the machine of 7.35/84/81. Ideally I would have liked to increase the minute ventilation but she could not tolerate a higher rate or more pressure. At baseline patient states that she can walk room to room and this has been unchanged over the last year.? She was last admitted to the hospital approximately 1 year ago for COPD exacerbation and when she fell and broke her knee on 01/30/2022. ? she was admitted to the hospital and had breathing trouble.? She also had covid at that time. ? Patient smokes tobacco from age 15 to current.? She had smoked 2 packs per day for total of 84 pack years and has recently cut down to 1/2 pack per day.? Patient was exposed to secondhand smoke for both of her parents but none currently.? Patient denies occupational exposures. Patient was admitted to the hospital from 06/28/2022 through 07/04/2022. She was treated for COPD exacerbation and was initiated on home noninvasive ventilation with AVAPS-AE mode through [facility] with respiratory rate of 20, tidal volume 500, minimal EPAP 4, maximal EPAP 15, minimum pressure support 5, maximal pressure support 25, maximal pressure 35 and 2 L bleed in. this was delivered to the hospital and she wore this 1 night in the hospital prior to her going home and did well. 08/03/22: Currently the patient admits to noncompliance with her noninvasive ventilation. I will obtain a download from [employer] to document her compliance. Patient tolerated the hospital noninvasive ventilator last night with a blood gas this morning prior to removal of 7.33/73/75. This represents adequate oxygenation and ventilation. Patient tells me she cannot have her current relative who she lives with bring her home machine in because she is worried that he will ruin in the machine. Patient currently states she is about 40% back to her normal. She has no wheezes and I will place her on her home regimen of Symbicort 160- 4.5 at 2 puffs b.i.d. and incruse ellipta 62.5 at 1 puff q.day. continue montelukast 10 mg p.o. q.h.s.. At this time I will hold off on antibiotics and systemic steroids as I am not convinced she has a COPD exacerbation. Patient has very severe disease essentially bedbound and I was hoping that adding noninvasive ventilation at night to her medical regimen on last admission from 06/28 through 07/04/2022 would keep her out of the hospital. Patient has a very difficult social situation, currently living with her cousin but this is suboptimal. This was addressed last admission with alternatives provided to the patient. The patient currently tells me that she will live with this cousin till the end of the month
[2022-08-05] MEDS: UMECLIDINIUM BROMIDE 62.5 MCG ELLIPTA 1 PUFF INHALATION (09:35)
[2022-08-05] MEDS: FLUTICASONE/SALMETEROL 115-21 MCG INHALER 1 PUFF 2 PUFF INHALATION ×2 (09:36→21:15)
[2022-08-05] MEDS: GABAPENTIN 300 MG CAPSULE 600 MG PO ×3 (10:30→18:33)
[2022-08-05] MEDS: busPIRone HCL 5 MG TABLET 15 MG PO ×2 (10:30→20:29)
[2022-08-05] MEDS: ENOXAPARIN 40 MG/0.4 ML SYRINGE SUB-Q (10:30)
[2022-08-05] MEDS: PANTOPRAZOLE 40 MG TABLET PO (10:31)
[2022-08-05] MEDS: METOPROLOL SUCCINATE EXT REL 25 MG TABCR PO (10:31)
[2022-08-05] MEDS: polyethylene glycoL 3350 17 GM POWD.PACK BY MOUTH (10:31)
[2022-08-05] MEDS: VENLAFAXINE HCL XR 75 MG CAP.ER.24H 150 MG PO (10:32)
--- NOTE | 2022-08-05 15:22 | PM.IMPN ---
Progress Note: A&P Assessment and Plan (1) Acute and chronic respiratory failure with hypercapnia: Code(s): J96.22 - Acute and chronic respiratory failure with hypercapnia Status: Acute Assessment and Plan: Unclear why she has decompensated however I am concerned that she is not compliant with her BiPAP/AVAPS at nighttime. Patient reports she used her AVAPS overnight. ABG noted. Respiratory status appears to be okay this morning. Will await Pulmonary to evaluate the patient as they know the patient well. Otherwise it appears she might be compensated at her baseline. I think this exacerbation was likely related to noncompliance. She did admit to not wearing her AVAPS at home. Bad social situation at home case management looking into (2) Chronic obstructive pulmonary disease: Code(s): J44.9 - Chronic obstructive pulmonary disease, unspecified Status: Acute Assessment and Plan: Continue scheduled updrafts and maintenance inhalers. (3) Tobacco abuse: Code(s): Z72.0 - Tobacco use Status: Acute Assessment and Plan: Smoking cessation is imperative and was discussed though she is not interested in quitting. Declines the need for nicotine patch states it makes her worse smokes half pack a day presently (4) Anxiety: Code(s): F41.9 - Anxiety disorder, unspecified Status: Chronic Assessment and Plan: Continue buspirone and venlafaxine. (5) Tachycardia: Code(s): R00.0 - Tachycardia, unspecified Status: Acute Assessment and Plan: Could very well be related to anxiety. Consider CTA of the chest if no improvement. Subjective Date/time seen: 08/05/22 15:22 57-year-old female smoker with severe COPD, chronic hypoxic and hypercapnic respiratory failure on 3 L nasal cannula and? AVAPS settings at nighttime, heart failure with preserved ejection fraction grade 1 diastolic dysfunction, DVT and PE in 2019, and hypertension who is being directly admitted to the IMU from [facility] in [place] for pulmonology consultation due to acute on chronic hypercapnic respiratory failure. Pt has severe COPD continues to smoke but has cut back to half pack a day encouraged to quit smoking encouraged to wear AVAP Review of Systems Review of Systems: SOB chest tightness Exam Narrative: General: Thin female appearing older chronically ill appearing Neck: Supple. No JVD. Respiratory: Pursed lip breathing. Occasional accessory muscle use as well. Lung sounds are significantly diminished throughout with expiratory wheezing. Cardiovascular: Regular rate and rhythm with S1-S2. Gastrointestinal: Abdomen is soft, flat, nontender, and nondistended with positive bowel sounds. Skin: Warm and dry. No rash or lesions on limited exam. Extremities: No cyanosis, clubbing, or edema. Radial and pedal pulses intact. Neurological: Alert and oriented x4. Cranial nerves 2-12 are grossly intact. No gross focal deficits to casual conversation. Psychiatric: Appropriate mood. Mildly anxious. Objective Data Vital Signs Vital Signs: Vital Signs - 24 hr 08/04/22 20:31 08/04/22 20:32 08/04/22 21:36 Temperature 36.6 C Pulse Rate 92 88 Respiratory Rate 20 16 Blood Pressure 129/82 Pulse Oximetry 95 91 Oxygen Delivery Nasal Cannula Oxygen Flow Rate 3 Fraction of Inspired Oxygen 08/04/22 20:00 08/05/22 02:31 08/05/22 04:56 Temperature 36.4 C L Pulse Rate 88 88 96 Respiratory Rate 16 16 14 Blood Pressure 120/74 Pulse Oximetry 91 91 100 Oxygen Delivery Nasal Cannula BiPAP Oxygen Flow Rate 3 Fraction of Inspired Oxygen 28 28 08/05/22 09:41 08/05/22 10:31 08/05/22 10:28 Temperature Pulse Rate 95 Respiratory Rate Blood Pressure Pulse Oximetry 95 95 Oxygen Delivery Nasal Cannula Nasal Cannula Oxygen Flow Rate 4 4 Fraction of Inspired Oxygen 08/05/22 14:47 Temperature 36.3 C L Pulse Rate 100 Re
[2022-08-05] MEDS: MONTELUKAST SODIUM 10 MG TABLET PO (20:29)
[2022-08-05] MEDS: hydrOXYzine pamoate 25 MG CAPSULE 50 MG PO (23:50)
[2022-08-06] VITALS (9 sets, daily range): BP systolic 121–129; BP diastolic 78–82; PULSE 74–101; RESP 14–24; TEMP 36.1–37.1; O2SAT 93–100
[2022-08-06] MEDS: MAGNES & ALUM HYD/SIMETH/DIPHENHYD/LIDOCAINE 119 ML MOUTHWASH BY MOUTH ×4 (01:30→20:15)
[2022-08-06] MEDS: HYDROcodone/acetaminophen (*CRX) 7.5-325 MG TABLET 1 TAB PO ×3 (02:04→19:45)
[2022-08-06] MEDS: GABAPENTIN 300 MG CAPSULE 600 MG PO ×2 (08:43→12:14)
[2022-08-06] MEDS: busPIRone HCL 5 MG TABLET 15 MG PO ×2 (08:43→20:16)
[2022-08-06] MEDS: VENLAFAXINE HCL XR 75 MG CAP.ER.24H 150 MG PO (08:44)
[2022-08-06] MEDS: PANTOPRAZOLE 40 MG TABLET PO (08:44)
[2022-08-06] MEDS: METOPROLOL SUCCINATE EXT REL 25 MG TABCR PO (08:44)
[2022-08-06] MEDS: ENOXAPARIN 40 MG/0.4 ML SYRINGE SUB-Q (08:44)
[2022-08-06] MEDS: polyethylene glycoL 3350 17 GM POWD.PACK BY MOUTH (08:45)
[2022-08-06] MEDS: FLUTICASONE/SALMETEROL 115-21 MCG INHALER 1 PUFF 2 PUFF INHALATION ×2 (09:27→20:03)
[2022-08-06] MEDS: UMECLIDINIUM BROMIDE 62.5 MCG ELLIPTA 1 PUFF INHALATION (09:27)
--- NOTE | 2022-08-06 11:56 | PM.IMPN ---
Progress Note: A&P Assessment and Plan (1) Acute and chronic respiratory failure with hypercapnia: Code(s): J96.22 - Acute and chronic respiratory failure with hypercapnia Status: Acute Assessment and Plan: she is not compliant with her BiPAP/AVAPS at nighttime. Patient reports she used her AVAPS overnight. ABG noted. Respiratory status appears to be okay this morning. Appreciate Pulmonary input Bad social situation at home case management looking into (2) Chronic obstructive pulmonary disease: Code(s): J44.9 - Chronic obstructive pulmonary disease, unspecified Status: Acute Assessment and Plan: Continue scheduled updrafts and maintenance inhalers. (3) Tobacco abuse: Code(s): Z72.0 - Tobacco use Status: Acute Assessment and Plan: Smoking cessation is imperative and was discussed though she is not interested in quitting. Declines the need for nicotine patch states it makes her worse smokes half pack a day presently (4) Anxiety: Code(s): F41.9 - Anxiety disorder, unspecified Status: Chronic Assessment and Plan: Continue buspirone and venlafaxine. Plan Possible discharge tomorrow Subjective Date/time seen: 08/06/22 11:56 Shortness of breath is somewhat better Review of Systems Review of Systems: SOB chest tightness Exam Narrative: General: Thin female appearing older chronically ill appearing Neck: Supple. No JVD. Respiratory: Pursed lip breathing. Occasional accessory muscle use as well. Lung sounds are significantly diminished throughout with expiratory wheezing. Cardiovascular: Regular rate and rhythm with S1-S2. Gastrointestinal: Abdomen is soft, flat, nontender, and nondistended with positive bowel sounds. Skin: Warm and dry. No rash or lesions on limited exam. Extremities: No cyanosis, clubbing, or edema. Radial and pedal pulses intact. Neurological: Alert and oriented x4. Cranial nerves 2-12 are grossly intact. No gross focal deficits to casual conversation. Psychiatric: Appropriate mood. Mildly anxious. Objective Data Vital Signs Vital Signs: Vital Signs - 24 hr 08/05/22 14:47 08/05/22 21:22 08/05/22 20:00 Temperature 97.3 F L Pulse Rate 100 87 Respiratory Rate 18 20 Blood Pressure 122/80 Pulse Oximetry 94 99 Oxygen Delivery Nasal Cannula Oxygen Flow Rate 4 08/05/22 21:54 08/06/22 01:43 08/06/22 06:00 Temperature 97.6 F 98.7 F Pulse Rate 100 99 74 Respiratory Rate 14 21 H 14 Blood Pressure 140/88 121/78 Pulse Oximetry 99 99 96 Oxygen Delivery BiPAP Oxygen Flow Rate 08/06/22 08:44 08/06/22 09:28 08/06/22 08:40 Temperature Pulse Rate 86 Respiratory Rate Blood Pressure Pulse Oximetry 96 93 Oxygen Delivery Nasal Cannula Nasal Cannula Oxygen Flow Rate 3 3 Intake/Output Intake/Output: Intake & Output 08/03/22 08/04/22 08/05/22 08/06/22 23:59 23:59 23:59 23:59 Intake Total 440 / 440 1180 / 1180 610 / 610 100 / 100 Output Total 1100 / 1100 2125 / 2125 1150 / 1150 500 / 500 Balance -660 / -660 -945 / -945 -540 / -540 -400 / -400 Meds/Results Medications: Active Medications Generic Name Dose Route Start Last Admin Trade Name Freq PRN Reason Stop Dose Admin Acetaminophen 650 mg 07/31/22 16:28 08/01/22 00:28 Acetaminophen 325 Mg Tablet PO 650 mg Q6H PRN Administration Pain (Scale Score 1-3) Hydrocodone Bitart/Acetaminophen 1 tab 08/01/22 11:19 08/06/22 08:51 Hydrocodone/Acetaminophen (*Crx) 7.5-325 Mg Tablet PO 1 tab QID PRN Administration Pain (Scale Score 4-6) Benzocaine 1 applic 08/05/22 00:23 08/05/22 01:49 Benzocaine 20% Dental Gel 9 Gm Tube BY MOUTH 1 applic QID PRN Administration Oral Pain Buspirone HCl 15 mg 07/31/22 21:00 08/06/22 08:43 Buspirone Hcl 5 Mg Tablet PO 15 mg Q12HR NIKOLAI Administration Enoxaparin Sodium 40 mg 08/01/22 09:00 08/06/22 08:44 Enoxaparin 40 Mg/0.
--- NOTE | 2022-08-06 12:01 | PCPTNOTE ---
Patient refused treatment this session stating she has not received a breathing treatment for several days and does not want to do therapy until she receives a breathing treatment.
[2022-08-06] MEDS: hydrOXYzine pamoate 25 MG CAPSULE 50 MG PO ×2 (12:13→22:55)
--- NOTE | 2022-08-06 15:08 | PCPTNOTE ---
PT attempted to see patient this afternoon, however patient sleeping soundly and did not arouse to participate in therapy. PT will continue to follow per plan of care.
[2022-08-06] MEDS: MONTELUKAST SODIUM 10 MG TABLET PO (20:15)
[2022-08-07] MEDS: HYDROcodone/acetaminophen (*CRX) 7.5-325 MG TABLET 1 TAB PO ×2 (04:06→17:26)
[2022-08-07 06:00] VITALS: BP 124/71; PULSE 90; RESP 16; TEMP 36.2; O2SAT 100
[2022-08-07] MEDS: hydrOXYzine pamoate 25 MG CAPSULE 50 MG PO ×2 (06:42→17:26)
[2022-08-07 08:50] VITALS: PULSE 98; RESP 18; O2SAT 98
[2022-08-07] MEDS: FLUTICASONE/SALMETEROL 115-21 MCG INHALER 1 PUFF 2 PUFF INHALATION (08:50)
[2022-08-07] MEDS: UMECLIDINIUM BROMIDE 62.5 MCG ELLIPTA 1 PUFF INHALATION (08:50)
[2022-08-07] MEDS: polyethylene glycoL 3350 17 GM POWD.PACK BY MOUTH (08:58)
[2022-08-07] MEDS: PANTOPRAZOLE 40 MG TABLET PO (08:59)
[2022-08-07] MEDS: METOPROLOL SUCCINATE EXT REL 25 MG TABCR PO (08:59)
[2022-08-07] MEDS: ENOXAPARIN 40 MG/0.4 ML SYRINGE SUB-Q (08:59)
[2022-08-07] MEDS: VENLAFAXINE HCL XR 75 MG CAP.ER.24H 150 MG PO (08:59)
[2022-08-07] MEDS: ACETAMINOPHEN 325 MG TABLET 650 MG PO (08:59)
[2022-08-07] MEDS: GABAPENTIN 300 MG CAPSULE 600 MG PO ×2 (08:59→17:26)
[2022-08-07 09:00] VITALS: O2SAT 94
[2022-08-07] MEDS: busPIRone HCL 5 MG TABLET 15 MG PO (09:00)
--- NOTE | 2022-08-07 10:30 | PCNFU ---
Nutrition Follow-Up Complete: Severe protein calorie malnutrition related to chronic illness COPD as evidenced by severe muscle wasting and fat loss; intakes <75% needs >1 month. Adequate PO intake at least 75% meals and supplements - Progressing toward goal Maintain weight during admission - Goal not being met. Lost 4 lbs since admission. Goal: Pt current nutrition is Heart healthy diet. Intakes vary from 5-100%. Overall average 55%. Ensure Enlive ordered TID for additional 350 kcals and 20 g protein. 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 Nutrition recommendation: Continue with current orders and care plan. Last recorded weight is 43.4 kg. Bowel Motility: Last BM 07/30/2022 Labs Reviewed: No significant nutrition related labs Meds Noted: Protonix, Miralax Skin: WNL Additional Notes: Continue with current plan and monitoringt Monitoring intakes, supplement tolerance, weights, labs, plan of care Follow up in 5 days
--- NOTE | 2022-08-07 10:52 | PM.DS ---
DS: Admitting Diagnosis Discharge Date 08/07/2022 Admitting Diagnosis COPD exacerbation Chronic smoker DS: Discharge Diagnosis Discharge Diagnosis (1) Heart failure with preserved ejection fraction: Code(s): I50.30 - Unspecified diastolic (congestive) heart failure Status: Acute (2) Chronic respiratory failure with hypoxia and hypercapnia: Code(s): J96.11 - Chronic respiratory failure with hypoxia; J96.12 - Chronic respiratory failure with hypercapnia Status: Acute (3) Chronic obstructive pulmonary disease: Code(s): J44.9 - Chronic obstructive pulmonary disease, unspecified Status: Acute DS: Summary Hospital Course Hospital Course: 57-year-old with a history of GOLD grade 4 group E COPD? with 84 pack years tobacco use and currently smoking half a pack, Alpha 1 phenotype MS with level 148 (normal) on 07/01/22? (FEV1 0.47 L, 18%,? air trapping, hyperinflation and decreased DLCO from PFTs on 02/14/2020) on 1 L at rest and 3 L with ambulation at home,? severe panlobular emphysema all lung andrea on CT scan of the chest 07/02/2021,? and history of hypercarbic hypoxemic respiratory failure in the past started on home NIV 07/04/2022 (through [facility]),? HFpEF with grade 1 diastolic dysfunction,? DVT and PE in 2019 and eliquis DC on 07/01/20 with recent falls?with fractured left wrist 01/2021, fractured knee 12/2021 and fractured right wrist 06/30/22.? She is maintained on Symbicort 160-4.5 at 2 puffs b.i.d. and increase elipta at 62.5 at 1 puff q.day.? Patient also takes montelukast 10 mg a day. Patient was admitted to the hospital for COPD exacerbation and was initiated on home noninvasive ventilation with AVAPS. Pulmonary was consulted. From a pulmonary perspective patient is ready to be discharged on these Pulmonary medications: Symbicort 160-4.5 at 2 puffs b.i.d. Incruse Ellipta 62.5 at 1 puff q.day Rescue albuterol 2 puffs q.4 hours p.r.n. shortness of breath or wheezing Montelukast 10 mg p.o. q.day Guaifenesin 600 mg p.o. b.i.d. p.r.n. cough oxygen 3 L at rest and 3 with ambulation with a goal to maintain saturations greater than 90% When she naps her sleeps (through [facility]): AVAPS-AE mode, tidal volume 500, respiratory rate auto, minimum EPAP 4, maximum EPAP 15, minimum pressure support 5, maximum pressure support 25, maximum pressure 35 with 2 L bleed in. Follow-up in Pulmonary Clinic in 3-4 weeks.? Time Spent with Patient Time attestation: Total time spent providing and/or coordinating discharge services: Exam Narrative: General: Thin female appearing older chronically ill appearing Neck: Supple. No JVD. Respiratory: Pursed lip breathing. Occasional accessory muscle use as well. Lung sounds are significantly diminished throughout with expiratory wheezing. Cardiovascular: Regular rate and rhythm with S1-S2. Gastrointestinal: Abdomen is soft, flat, nontender, and nondistended with positive bowel sounds. Skin: Warm and dry. No rash or lesions on limited exam. Extremities: No cyanosis, clubbing, or edema. Radial and pedal pulses intact. Neurological: Alert and oriented x4. Cranial nerves 2-12 are grossly intact. No gross focal deficits to casual conversation. Psychiatric: Appropriate mood. Mildly anxious. Discharge Plan Discharge Consulting providers: Hany Nielsen Discharging Clinician: Rich Champagne Anticipated Discharge Date/Time: 08/07/22 10:49 Patient Disposition: Home, Self-Care Activity: no preference Diet: heart healthy Patient Instructions: Antibiotic Form, Heart Failure (DC), How to Stop Smoking (DC) Stand Alone Forms: General Discharge Information Follow-up/Referrals: Prakash Cameron MD [Primary Care Provider] - Hany Nielsen MD [Physician] - Discharge Medications: Continued venlafaxine 150 mg capsule,extended release 24hr 150 mg PO DAILY buspirone 10 mg tablet 15 mg PO Q12H gabapentin 300 mg capsule 600 mg PO TID Inc
[2022-08-07 14:00] VITALS: BP 112/64; PULSE 95; RESP 16; TEMP 37.1; O2SAT 99
[2022-08-07] MEDS: MAGNES & ALUM HYD/SIMETH/DIPHENHYD/LIDOCAINE 119 ML MOUTHWASH BY MOUTH (17:26)
--- OUTSIDE RECORDS SUMMARY | 2022-08-19 04:45 | XMS_ITS | Summary of Care ---
Author Name Unknown Organization [facility] Address [address] [place] [address]. [place] [address]- Encounter 02/11/22 - 03/07/22 [facility] [address], [place] [address] Discharge Disposition: Discharge/Transfer to Inpatient SNF Attending Physician: Chi SMITH, Thy N Admitting Physician: Hany Sifuentes MD Allergies, Adverse Reactions, Alerts Substance Reaction Severity Status nitrofurantoin Hives Active Percocet Palpitations Increased heart rate Active Medications albuterol CFC free 90 mcg/inh inhalation aerosol 180 mcg, 2 puff, Aerosol, INH, q6hr RT PRN, 1 EA, 0 Refill(s), Shortness of breath or wheezing, Print Requisition Start Date: 02/24/22 Status: Ordered apixaban 5 mg oral tablet 5 mg = 1 tab, Tab, Oral, BID, 60 tab, 0 Refill(s), Print Requisition Start Date: 02/24/22 Status: Ordered benzonatate 100 mg oral capsule 100 mg = 1 cap, Cap, Oral, q6hr PRN, 30 cap, 0 Refill(s), Cough, Print Requisition Start Date: 02/24/22 Status: Ordered Breo Ellipta 200 mcg-25 mcg/inh inhalation powder 1 puff, Powder, INH, Daily RT, 30 blister, 0 Refill(s), Print Requisition Start Date: 02/24/22 Status: Ordered busPIRone 10 mg oral tablet 10 mg = 1 tab, Tab, Oral, BID, 60 tab, 0 Refill(s), Print Requisition Start Date: 02/24/22 Status: Ordered cyclobenzaprine 5 mg oral tablet 5 mg = 1 tab, Tab, Oral, TID, 90 tab, 0 Refill(s), Print Requisition Start Date: 02/24/22 Status: Ordered gabapentin 800 mg oral tablet 800 mg, = 1 tab, Tab, Oral, TID, 90 tab, 0 Refill(s), Print Requisition Start Date: 02/24/22 Status: Ordered hydrOXYzine hydrochloride 25 mg oral tablet 25 mg = 1 tab, Tab, Oral, q8hr PRN, 15 tab, 0 Refill(s), Anxiety, Print Requisition Start Date: 02/24/22 Status: Ordered Incruse Ellipta 62.5 mcg/inh inhalation powder 62.5 mcg, 1 puff, Powder, INH, Daily RT, 30 blister, 0 Refill(s), Print Requisition Start Date: 02/24/22 Status: Ordered Lidoderm 5% topical film 2 patch, Film, Transdermal, Daily, 60 patch, 0 Refill(s), remove patches after 12 hours, Print Requisition Start Date: 02/24/22 Status: Ordered metoprolol tartrate 25 mg oral tablet 12.5 mg =
== END 2022-08-07 18:45 | disposition home or self-care (01) | DRG 133 ==
LOC: ANHIMU 08-03 10:54 → ANH3MEDSUR 08-03 17:36
PROVIDERS: Physician Assistant; Admitting Provider Chiropractor; PCP Family Medicine; Visit Provider Hospitalist
DX: J96.22 Acute and chronic respiratory failure with hypercapnia (principal); E43 Unspecified severe protein-calorie malnutrition; I11.0 Hypertensive heart disease with heart failure; I50.32 Chronic diastolic (congestive) heart failure; J43.1 Panlobular emphysema; J96.11 Chronic respiratory failure with hypoxia; Z99.81 Dependence on supplemental oxygen; F41.9 Anxiety disorder, unspecified; F32.A Depression, unspecified; F17.210 Nicotine dependence, cigarettes, uncomplicated; K21.9 Gastro-esophageal reflux disease without esophagitis; Z86.718 Personal history of other venous thrombosis and embolism; Z86.711 Personal history of pulmonary embolism; Z91.199 Patient's noncompliance with other medical treatment and regimen due to unspecified reason; Z68.1 Body mass index [BMI] 19.9 or less, adult; Z74.01 Bed confinement status
CPT/HCPCS: 36415; 36600; 71045; 80048; 80053; 82375; 82805; 83050; 84439; 84443; 84480; 85027; 85380; 93005; 94002; 94003; 94640; 97110; 97161; 97165; 97530; A9270; J1650; J2060

== ENCOUNTER 2022-10-04 19:11 | Inpatient (IN) | payer OTHER, SELFPAY ==
[2022-10-04] VITALS (12 sets, daily range): BP systolic 71–103; BP diastolic 44–92; PULSE 90–99; RESP 16–24; TEMP 36.6; O2SAT 99–100; BMI 15.0
--- NOTE | ~2022-10-04 | XR_ITS ---
EXAMINATION: XR chest 1V portable INDICATION: Respiratory failure TECHNIQUE: Portable AP chest at 0524 hours COMPARISON: 10/04/2022 FINDINGS: The endotracheal tube ends approximately 5.4 cm above the syed. The nasogastric tube is f ollowed as far as the stomach. Its tip is beyond the inferior margin of the radiograph. There is alda re emphysema. The lungs are free of acute opacities. No pleural effusion or pneumothorax. IMPRESSION: 1. Severe emphysema. Reviewed, dictated and finalized at location A. IMPRESSION: 1. Severe emphysema.
--- NOTE | ~2022-10-04 | XR_ITS ---
EXAM: XR abdomen NG/feed tube insert DATE: 10/15/2022 19:25 HISTORY: OG insertion . COMPARISON: 10/06/2022. FINDINGS: NG tube, tip and side port project over the expected location of the stomach Predominantly reticular opacities in the right lung base. Normal partially visualized bowel gas pattern.. IMPRESSION: NG tube, in good position. Reviewed, dictated and finalized at location K. IMPRESSION: NG tube, in good position.
--- NOTE | ~2022-10-04 | XR_ITS ---
Portable chest x-ray Comparison: 10/20/2022 Clinical History: Pneumonia Findings: Endotracheal tube, NG tube, and right-sided PICC line remain in place. Severe emphysema ag ain present. Right basilar pneumonia is unchanged. Cardiomediastinal silhouette is stable. Bones and soft tissues are unremarkable. Impression: Stable right basilar pneumonia. Stable severe emphysema. Stable support tubes. Reviewed, dictated and finalized at location . Impression: Stable right basilar pneumonia. Stable severe emphysema. Stable support tubes.
--- NOTE | ~2022-10-04 | XR_ITS ---
Portable chest x-ray Comparison: 10/18/2022 Clinical History: Respiratory failure Findings: Endotracheal tube, NG tube, and right-sided PICC line are in place. Probable persistent ri ght lower lobe pneumonia. COPD pattern present. Cardiomediastinal silhouette is stable. Bones and so ft tissues are unremarkable. Impression: Persistent probable right lower lobe pneumonia. Underlying severe COPD. Support tubes, as above. Reviewed, dictated and finalized at location . Impression: Persistent probable right lower lobe pneumonia. Underlying severe COPD. Support tubes, as above.
--- NOTE | ~2022-10-04 | XR_ITS ---
Portable chest x-ray Comparison: 10/15/2022 Clinical History: Respiratory failure Findings: Endotracheal tube, NG tube, and right-sided PICC line are in place. There is extensive rig ht basilar pneumonia, with hazy opacity and interstitial thickening. There is underlying severe COPD and probable left upper lobe scarring. Cardiomediastinal silhouette is stable. Bones and soft tissue s are unremarkable. Impression: Extensive right basilar pneumonia, unchanged. Underlying severe COPD with left upper lobe linear scarring. Support tubes, as above. Reviewed, dictated and finalized at location M. Impression: Extensive right basilar pneumonia, unchanged. Underlying severe COPD with left upper lobe linear scarring. Support tubes, as above.
--- NOTE | ~2022-10-04 | XR_ITS ---
XR chest ET placement DATE: 10/04/2022 19:40 INDICATION: Intubation TECHNIQUE: Portable AP chest on 10/04/2022 at 1936 hours COMPARISON: July 31, 2022 portable AP chest FINDINGS: ET tube tip is approximately 6.9 cm above syed. [place] range is 305 cm. NG tube is noted passing into the stomach, the proximal side port apparently in the very lower aspect of the chest. Prominent bilateral pulmonary hyperinflation. There is chronic left upper lobe scarring. No pulmonary infiltrate or consolidation, pleural effusion or pulmonary vascular congestion or pneumothorax is ev ident. Diffuse osteopenia. IMPRESSION: ET tube tip 6.9 cm above syed; ideal range is 305 cm NG tube passing into stomach, proximal side-port in lower chest; advancement is recommended Emphysematous changes of the lung and chronic left upper lobe scarring Reviewed, dictated and finalized at Location A. Reviewed, dictated and finalized at location A.
--- NOTE | ~2022-10-04 | XR_ITS ---
EXAMINATION: XR chest 1V portable INDICATION: Respiratory failure TECHNIQUE: Portable AP chest at 0515 hours COMPARISON: 10/08/2022 FINDINGS: The endotracheal tube ends approximately 4.9 cm above the syed. The nasogastric tube is f ollowed as far as the stomach. Its tip is beyond the inferior margin of the radiograph. There is alda re emphysema. The lungs are free of acute opacities. No pleural effusion or pneumothorax. The cardiom ediastinal silhouette is normal. IMPRESSION: 1. Severe emphysema. Reviewed, dictated and finalized at location A. IMPRESSION: 1. Severe emphysema.
--- NOTE | ~2022-10-04 | XR_ITS ---
XR chest 1V portable DATE: 10/17/2022 05:43 INDICATION: Respiratory failure TECHNIQUE: Portable AP chest on 10/13/2022 at 0052 hours COMPARISON: 10/16/2022 portable AP chest at 0511 hours FINDINGS: There is extensive interstitial infiltrate of the right mid and particularly right lower sol ng. Bilateral hyperinflation relative flattening the diaphragm, consistent with COPD. Normal heart size. ET and NG tubes in satisfactory position. Diffuse osteopenia. IMPRESSION: Persistent extensive infiltrate in the right mid and lower lung zones Reviewed, dictated and finalized at location A. IMPRESSION: Persistent extensive infiltrate in the right mid and lower lung zon es
--- NOTE | ~2022-10-04 | XR_ITS ---
EXAMINATION: XR chest 1V portable INDICATION: Respiratory failure TECHNIQUE: Portable AP chest at 0504 hours COMPARISON: 10/06/2022 FINDINGS: The endotracheal tube ends approximately 3.9 cm above the syed. The nasogastric tube is f ollowed as far as the stomach. Its tip is beyond the inferior margin of the radiograph. There is alda re emphysema. The lungs are free of acute opacities. No pleural effusion or pneumothorax. The cardiom ediastinal silhouette is normal. A right upper extremity PICC ends with its tip in the distal superio r vena cava. IMPRESSION: 1. Severe emphysema. Reviewed, dictated and finalized at location A. IMPRESSION: 1. Severe emphysema.
--- NOTE | ~2022-10-04 | XR_ITS ---
Portable chest x-ray Comparison: 10/19/2022 Clinical History: Respiratory failure Findings: Endotracheal tube, NG tube, and right-sided PICC line are in place. Stable right lower lob e pneumonia. Stable severe emphysema. Cardiomediastinal silhouette is stable. Bones and soft tissues are unremarkable. Impression: No interval change. Stable support tubes. Stable right lower lobe pneumonia. Stable severe COPD. Reviewed, dictated and finalized at location . Impression: No interval change. Stable support tubes. Stable right lower lobe pneumonia. Stable severe COPD.
--- NOTE | ~2022-10-04 | XR_ITS ---
EXAMINATION: XR chest ET placement Exam Date/Time: 10/15/2022 19:15 CDT HISTORY: After intubation to confirm ET placement Comparison: Same date at 5:36 PM. RESULT: Lines, tubes, and devices: Endotracheal tube terminating 4.9 cm above the syed. Traversing nasogas tric tube terminating out of the [id number]. Lungs and pleura: Somewhat decreased right lower lung opacities. Cardiomediastinal silhouette: Stable. Other: No acute osseous or upper abdominal finding. IMPRESSION: Endotracheal tube terminates 5 cm above the syed. Slightly decreased right lower lung opacities may represent improving atelectasis/edema with or without underlying pneumonia. Reviewed, dictated and finalized at location K. IMPRESSION: Endotracheal tube terminates 5 cm above the syed. Slightly decreased right lo wer lung opacities may represent improving atelectasis/edema with or without un derlying pneumonia.
--- NOTE | ~2022-10-04 | XR_ITS ---
XR abdomen NG/feed tube insert DATE: 10/04/2022 19:40 INDICATION: Orogastric tube insertion TECHNIQUE: Portable AP view on 10/04/2022 at 1929 hours COMPARISON: None FINDINGS: An NG tube extends into the upper body of the stomach, the proximal side-port still in the lower chest. Advancement of the tube is recommended. IMPRESSION: NG tube in proximal stomach with proximal side port still in the lower chest; tube advanc ement is recommended Reviewed, dictated and finalized at Location A. Reviewed, dictated and finalized at location A. IMPRESSION: NG tube in proximal stomach with proximal side port still in the lo wer chest; tube advancement is recommended
--- NOTE | ~2022-10-04 | XR_ITS ---
XR chest 1V portable DATE: 10/18/2022 05:05 INDICATION: Respiratory failure TECHNIQUE: Portable upright AP chest on 10/18/2022 at 0458 hours COMPARISON: 10/17/2022 portable AP chest at 0521 hours FINDINGS: There is persistent patchy infiltrate in the right mid and lower lung zones consistent with pneumonia. Bilateral hyperinflation and severe changes of emphysema. Normal heart size. Minimal if any pleural effusion. No pneumothorax. ET and NG tubes in satisfactory position. Right upper extremity PIC catheter tip overlies the superior vena cava. IMPRESSION: Persistent right lung infiltrate with little interval change since 10/17/2022 Reviewed, dictated and finalized at location A.
--- NOTE | ~2022-10-04 | XR_ITS ---
Portable chest x-ray Comparison: 10/23/2022 Clinical History: Shortness of breath Findings: Right-sided PICC line is unchanged. Severe COPD/emphysema again present. There is improveme nt in the right basilar pulmonary consolidation. There is mild haziness left lung base. Cardiomedias tinal silhouette is stable. Bones and soft tissues are unremarkable. Impression: Improving right lower lobe pneumonia. Mild haziness left lung base, nonspecific. Early pneumonia not excluded. Severe emphysema. Reviewed, dictated and finalized at location M. Impression: Improving right lower lobe pneumonia. Mild haziness left lung base, nonspecific. Early pneumonia not excluded. Severe emphysema.
--- NOTE | ~2022-10-04 | XR_ITS ---
EXAMINATION: XR chest 1V portable Exam Date/Time: 10/23/2022 22:45 CDT HISTORY: SOB, RESPIRATORY DISTRESS, COPD Comparison: 10/21/2022. RESULT: Lines, tubes, and devices: Right upper extremity PICC terminating in the SVC. Lungs and pleura: Severe emphysematous change, left upper lung scar, and widespread architectural di stortion. Persistent but improving right basilar airspace disease. No pneumothorax, effusion, or new focal consolidation. Cardiomediastinal silhouette: Stable. Other: No acute osseous or upper abdominal finding. IMPRESSION: Improving right basilar pneumonia.. Reviewed, dictated and finalized at location K.
--- NOTE | ~2022-10-04 | XR_ITS ---
EXAMINATION: XR chest 1V portable Exam Date/Time: 10/15/2022 17:30 CDT HISTORY: Respiratory Distress Comparison: . RESULT: Lines, tubes, and devices: None. Lungs and pleura: Right lower lung airspace disease and acinar opacities. Mild right lateral bluntin g. Severe background emphysematous/interstitial change with multifocal scarring and architectural dis tortion. Cardiomediastinal silhouette: Stable. Other: No acute osseous or upper abdominal finding. IMPRESSION: Right lower lung airspace disease concerning for pneumonia, possibly with a component of aspiration. Possible small right pleural effusion Severe emphysematous/interstitial change. Reviewed, dictated and finalized at location K. IMPRESSION: Right lower lung airspace disease concerning for pneumonia, possibly with a com ponent of aspiration. Possible small right pleural effusion Severe emphysematou s/interstitial change.
--- NOTE | ~2022-10-04 | XR_ITS ---
XR chest 1V portable DATE: 10/10/2022 05:33 INDICATION: Respiratory failure TECHNIQUE: Portable AP chest views on 10/10/2022 at 0513 hours COMPARISON: portable AP chest at 0515 hours FINDINGS: Prominent bilateral hyperinflation and flattening the diaphragm consistent with COPD. No pulmonary infiltrate or consolidation, pleural effusion or pulmonary vascular congestion or pneumo thorax is evident. Right upper extremity PIC catheter tip overlies the superior vena cava near the cavoatrial junction. Endotracheal 2 is approximately 5.5 cm above syed. NG tube in stomach. IMPRESSION: Prominent emphysema; no pulmonary consolidation is evident No significant change since 10/09/2022 Reviewed, dictated and finalized at location A.
--- NOTE | ~2022-10-04 | XR_ITS ---
EXAMINATION: XR chest 1V portable INDICATION: Respiratory failure TECHNIQUE: Portable AP chest at 0524 hours COMPARISON: 10/05/2022 FINDINGS: The endotracheal tube ends approximately 5.4 cm above the syed. The nasogastric tube is f ollowed as far as the stomach. Its tip is beyond the inferior margin of the radiograph. The proximal side port is just above the gastroesophageal junction. The lungs are hyperinflated but free of acute opacities. No pleural effusion or pneumothorax. A right upper extremity PICC ends with its tip in the distal superior vena cava. IMPRESSION: 1. Severe emphysema. 2. Side port of the nasogastric tube just above the gastroesophageal junction. Recommend advancing 2 to 3 cm. Reviewed, dictated and finalized at location A.
--- NOTE | ~2022-10-04 | XR_ITS ---
XR abdomen NG/feed tube insert INDICATION: Evaluate NG tube position. TECHNIQUE: Limited KUB perform for evaluating NG tube . COMPARISON: Comparison to multiple prior studies sequentially, with oldest reviewed study dated 11/2021. FINDINGS: NG tube tip in the stomach. Visualized bowel gas pattern is unremarkable. IMPRESSION: 1: NG tube tip in the stomach. Reviewed, dictated and finalized at location L.
--- NOTE | ~2022-10-04 | XR_ITS ---
EXAMINATION: XR chest 1V portable INDICATION: Respiratory failure TECHNIQUE: Portable AP chest at 0522 hours COMPARISON: 10/07/2022 FINDINGS: The endotracheal tube ends approximately 3.4 cm above the syed. The nasogastric tube is f ollowed as far as the stomach. Its tip is beyond the inferior margin of the radiograph. A right upper extremity PICC ends with its tip in the distal superior vena cava. There is severe emphysema. The sol ngs are free of acute opacities. No pleural effusion or pneumothorax. IMPRESSION: 1. Severe emphysema. Reviewed, dictated and finalized at location A. IMPRESSION: 1. Severe emphysema.
--- NOTE | 2022-10-04 19:35 | ADMGEN ---
This patient, Sharifa Mosquera, was admitted to Intensive Care Unit-2 @1915. Patient/family oriented to hospital policies and general routines including ID bracelet, bed and alarms, visiting hours, pain management, procedures, bathroom and other care routines, personal items, smoking policy, room service/diet, and visiting hours. Information on how to activate the Rapid Response Team has been discussed. Patient/Family are encouraged to report perceived risks to care and to ask questions if they do not understand what they are told or what they should do.
--- NOTE | 2022-10-04 19:38 | PM.IMHP ---
H&P: HPI History of Present Illness Date/Time: 10/04/22 19:20 Chief Complaint: Acute/chronic respiratory failure. Narrative: This is a 57-year-old female smoker with severe COPD, chronic hypoxic and hypercapnic respiratory failure on 3 L nasal cannula and? AVAPS settings at nighttime, heart failure with preserved ejection fraction grade 1 diastolic dysfunction, DVT and PE in 2019, and hypertension who is being directly admitted to the ICU from in [place] with acute on chronic respiratory failure. She is currently sedated and on mechanical ventilation thus unable to provide any history. She is known to myself from previous admissions and a majority following history is obtained via a review of her EMR as well as paperwork that accompanied her. It appears that she presented to the outside facility late last evening with increasing shortness of breath from baseline. She was found to have acute on chronic hypercapnic respiratory failure and she was started on BiPAP with worsening hypercapnia. She was placed back on her home O2 and was given a nebulizer treatment and Solu-Medrol without a whole lot of improvement and fact she was minimally responsive. She was intubated and has been transferred to our facility for higher level of care. At the time my evaluation she is intubated and sedated on mechanical ventilation. I have not been able to get in touch with family members for further details. Review of Systems Review of Systems: Unable to obtain given clinical condition as above. [facility] Past Medical History Medical History Anemia Anxiety Arthritis Chronic obstructive pulmonary disease GOLD stage 4. Chronic respiratory failure with hypoxia and hypercapnia 3 L nasal cannula throughout the day. BiPAP with AVAPS settings at nighttime. Deep venous thrombosis Depression Emphysema of lung Gastroesophageal reflux disease Heart failure with preserved ejection fraction Grade 1 diastolic dysfunction. Kidney stones Pneumonia Pulmonary embolism (2019) Pulmonary hypertension Pulmonary nodules Severe chronic obstructive pulmonary disease Tobacco abuse Surgical History Surgical History History of arthroscopy of left knee History of elbow surgery History of inguinal hernia repair History of tonsillectomy History of tubal ligation Family History Family History Father , at 46 of lung CA Lung cancer Mother Cerebrovascular accident Grandparent Diabetes mellitus Sibling Lung cancer Social History Social History (Updated 07/31/22 @ 16:17 by Brigitte Espinoza PA-C) Social History: Surrogate medical decision maker: Maria Guadalupe Delgado, daughter. Code status: full code. Smoking packs per day: 2 Smoking cigarettes per day: 40.0 Years smoked: 40 Smoking pack-years: 80.00 Smoking status: Current every day smoker Tobacco type: cigarettes Second hand tobacco smoke exposure: Yes Alcohol intake: never Substance use: never Substance use type: does not use Lack of Transportation: No Lack of Food: Never True Current Housing: Decline to Answer Concerned About Future Housing: Decline to Answer Difficulty Paying Gas/Electric Bills: Decline to Answer Difficulty Paying for Meds: Decline to Answer Currently Unemployed: No Education: Decline to Answer Difficulty w/ Childcare or Family Care: Decline to Answer Living arrangements: with family Additional living arrangements comments: with 5 children. Currently living with her cousin in an apartment in [place]. She has to go up 15 steps to get to the apartment. Occupation/Education: unemployed Additional occupation/education comments: Disabled. Spiritual care concerns: No Agree to blood products: Yes
[2022-10-04 19:45] LABS: Alveolar/Arterial O2 Gradient 125.5 mmHg; Fractional Inspired Oxygen 50 %; HCO3 ABG 38.6 mEq/l (22.0-26.0); Oxygen Content ABG 16.5 %vol (16.0-22.0); Oxygen Saturation ABG 99.3 % (95.0-100.0); PCO2 ABG 48.5 mmHg (35.0-45.0); PO2 ABG 176.4 mmHg (80.0-100.0); PO2 FiO2 Ratio Arterial Blood 3.53 %; Total Hemoglobin 11.7 g/dL (12.0-18.0)
[2022-10-04 19:47] LABS: Device VENTILATOR; Modified Allen's Test Pass; Site Drawn RIGHT RADIAL; pH ABG 7.519 (7.350-7.450)
[2022-10-04 19:48] LABS: Arterial Blood Gas PEEP 5 cmH2O; Arterial Blood Gas Tidal Volume 350 ml; Arterial Blood Gas Vent Mode CMV; Arterial Blood Gas Ventilator rate 24 /MIN
[2022-10-04] MEDS: LACTATED RINGERS 1,000 ML 999 ML IV CONT (20:07)
[2022-10-04] MEDS: FENTANYL 2,500MCG/NS250ML(*CRX 2,500 MCG/250 ML BAG IV CONT (20:43)
[2022-10-04 20:57] LABS: Blood Urea Nitrogen 35 mg/dL (7-17); Calcium 8.6 mg/dL (8.4-10.2); Carbon Dioxide > 40 mmol/L (22-30); Chloride 83 mmol/L (98-107); Estimated CRCL calculation 52 ml/min; Estimated Glomerular Filt Rate > 60; Glucose 130 mg/dL (65-110); Potassium 5.2 mmol/L (3.4-5.0); Sodium 130 mmol/L (137-145)
[2022-10-04] MEDS: MIDAZOLAM 100MG/NS 100ML(*CRX) 100 MG/100 ML BAG IV CONT (20:59)
[2022-10-04] MEDS: methylPREDNISolone SOD SUCC 40 MG VIAL IV PUSH (21:05)
[2022-10-04] MEDS: LACTATED RINGERS 1,000 ML 100 ML IV CONT (21:10)
[2022-10-04] MEDS: MINERAL OIL/WHITE PETROLATUM OINTMENT 1 APPLIC EACH EYE (21:10)
[2022-10-04] MEDS: AZITHROMYCIN 500 MG/NS 250 ML 500 MG/250 ML BAG 250 MG IVPB (21:35)
[2022-10-04] MEDS: VANCOMYCIN 1,000 MG/NS 250 ML 1,000 MG/250 ML BAG 250 MG IVPB (22:36)
[2022-10-04] MEDS: cefTRIAXone 2 GM/NS 100 ML 2 GM/100 ML BAG IVPB (22:36)
[2022-10-05] VITALS (28 sets, daily range): BP systolic 92–147; BP diastolic 51–95; PULSE 87–130; RESP 15–20; TEMP 36.8–38.4; O2SAT 92–100; BMI 15.3
[2022-10-05] MEDS: IPRATROPIUM BR 0.02% INH SOLN 0.5 MG/2.5 ML VIAL INHALATION ×4 (01:21→20:20)
[2022-10-05] MEDS: ALBUTEROL SULFATE NEB 2.5 MG/3 ML INH INHALATION ×4 (01:21→20:19)
[2022-10-05 03:02] LABS: Alveolar/Arterial O2 Gradient 107.4 mmHg; Base Excess ABG 14.2 mEq/l (+/-2.0); Carboxyhemoglobin 0.3 % THb (0-2.0); Fractional Inspired Oxygen 35 %; HCO3 ABG 41.2 mEq/l (22.0-26.0); Methemoglobin ABG 0.3 %THb (0-1.5); Oxygen Content ABG 13.7 %vol (16.0-22.0); Oxygen Saturation ABG 92.3 % (95.0-100.0); Oxyhemoglobin 90.4 % THb (90.0-100.0); PO2 ABG 65.3 mmHg (80.0-100.0); PO2 FiO2 Ratio Arterial Blood 1.87 %; Total Hemoglobin 10.7 g/dL (12.0-18.0); pH ABG 7.413 (7.350-7.450)
[2022-10-05 03:03] LABS: Arterial Blood Gas PEEP 5 cmH2O; Arterial Blood Gas Vent Mode CMV; Arterial Blood Gas Ventilator rate 16 /MIN; Device VENTILATOR; PCO2 ABG 66.1 mmHg (35.0-45.0); Site Drawn RIGHT BRACHIAL
[2022-10-05 03:04] LABS: Arterial Blood Gas Tidal Volume 350 ml
[2022-10-05 04:34] LABS: Hematocrit 29.5 % (37.0-47.0); Hemoglobin 9.2 g/dL (12.0-15.0); Mean Corpuscular HGB Conc 31.2 g/dl (32-36); Mean Corpuscular Volume 93.1 fl (80-100); Mean Platelet Volume 10.4 fl (7.4-10.4); Platelet Count Result 225 k/mm3 (150-375); Red Blood Count 3.17 M/mm3 (4.2-5.4); Red Cell Distribution Width 12.1 % (11.5-14.5)
[2022-10-05 04:40] LABS: Blood Urea Nitrogen 37 mg/dL (7-17); Calcium 8.5 mg/dL (8.4-10.2); Carbon Dioxide > 40 mmol/L (22-30); Chloride 86 mmol/L (98-107); Estimated CRCL calculation 46 ml/min; Estimated Glomerular Filt Rate > 60; Glucose 98 mg/dL (65-110); Potassium 4.9 mmol/L (3.4-5.0); Sodium 132 mmol/L (137-145)
[2022-10-05] MEDS: methylPREDNISolone SOD SUCC 40 MG VIAL IV PUSH ×4 (05:12→20:25)
[2022-10-05 05:42] LABS: Alveolar/Arterial O2 Gradient 82.6 mmHg; Base Excess ABG 12.4 mEq/l (+/-2.0); Carboxyhemoglobin 0.3 % THb (0-2.0); Fractional Inspired Oxygen 35 %; HCO3 ABG 40.7 mEq/l (22.0-26.0); Methemoglobin ABG 0.4 %THb (0-1.5); Oxygen Content ABG 14.4 %vol (16.0-22.0); Oxygen Saturation ABG 94.2 % (95.0-100.0); Oxyhemoglobin 92.7 % THb (90.0-100.0); PO2 FiO2 Ratio Arterial Blood 2.23 %; Reduced Hemoglobin 6.6 %THb (0-5.0); pH ABG 7.344 (7.350-7.450)
[2022-10-05 05:44] LABS: Device VENTILATOR; PCO2 ABG 76.5 mmHg (35.0-45.0); Site Drawn RIGHT BRACHIAL
[2022-10-05 05:45] LABS: Arterial Blood Gas PEEP 5 cmH2O; Arterial Blood Gas Tidal Volume 350 ml; Arterial Blood Gas Vent Mode CMV; Arterial Blood Gas Ventilator rate 18 /MIN
--- NOTE | 2022-10-05 09:02 | WPDCNINT ---
Assessment and Plan Assessment and plan (1) Acute on chronic respiratory failure with hypoxia and hypercapnia: Code(s): J96.21 - Acute and chronic respiratory failure with hypoxia; J96.22 - Acute and chronic respiratory failure with hypercapnia Status: Acute Assessment and Plan: Acute on chronic Respiratory failure secondary to COPD exacerbation and questionable pneumonia. Patient has baseline severe COPD and diastolic heart failure Patient now intubated and on mechanical ventilation Continue full mechanical ventilation support to prevent hypoxemia/hypercarbia and end organ damage. ABG reviewed and will continue current settings as ventilation is further limited by high peak pressures on the ventilator Chest x-ray reviewed and shows severe emphysema Continue steroids Continue bronchodilators Continue current empiric antibiotics come ice in Rocephin and azithromycin Check sputum blood cultures Check procalcitonin level Cautious IV fluids (2) Heart failure with preserved ejection fraction: Code(s): I50.30 - Unspecified diastolic (congestive) heart failure Status: Acute Assessment and Plan: Echo 06/30/22 Summary ? 1. Complete two-dimensional, color flow and Doppler transthoracic echocardiogram is performed. ? 2. Left ventricular chamber dimension is normal. ? 3. Left ventricular systolic function is normal, estimated at 50-55%. ? 4. The left ventricular diastolic function is grade I diastolic dysfunction. ? 5. Right ventricular systolic function is normal. ? 6. There is mild aortic valve calcification. ? 7. The mitral valve annulus is mildly calcified. ? 8. The mitral valve has thickened leaflets. ? 9. There is trace mitral valve regurgitation. ? 10. There is mild tricuspid valve regurgitation. ? 11. There is mild aortic atherosclerosis. ? 12. Normal inferior vena cava with >50% collapse upon inspiration consistent with normal right atrial pressure, 3 mmHg. (3) Chronic obstructive pulmonary disease: Code(s): J44.9 - Chronic obstructive pulmonary disease, unspecified Status: Acute Assessment and Plan: See above (4) Pneumonia: Code(s): J18.9 - Pneumonia, unspecified organism Status: Acute Assessment and Plan: See above (5) History of pulmonary embolus (PE): Code(s): Z86.711 - Personal history of pulmonary embolism Status: Acute Assessment and Plan: Continue apixaban Plan DVT prophylaxis -apixaban Stress ulcer prophylaxis -PPI Nutrition -start Tube Feeds Code Status - Full Code Total Critical Care Time - 35 minutes Due to a high probability of clinically significant, life threatening deterioration, the patient required my highest level of preparedness to intervene emergently and I personally spent this critical care time directly and personally managing the patient. This critical care time included obtaining a history; examining the patient; pulse oximetry; ordering and review of studies; arranging urgent treatment with development of a management plan; evaluation of patient's response to treatment; frequent reassessment; and discussions with other providers. It was exclusive of separately billable procedures and treating other patients and teaching time. Please see Assessment and Plan section and the rest of the note for further information on patient assessment and treatment Human Resource Officer Consult Note Consult date: 10/05/22 Reason for consult: Acute on chronic respiratory failure HPI: Sharifa Mosquera is a 57 year old female smoker with severe advanced COPD, chronic hypoxic and hypercapnic respiratory failure on 3 L nasal cannula and? AVAPS settings at nighttime/prn, heart failure with preserved ejection fraction grade 1 diastolic dysfunction, DVT and PE in 2019, and hypertension who was directly admitted to the ICU from [facility] in [place] with acute on chronic respiratory failure. She is known to this facility and me from samantha
[2022-10-05] MEDS: MINERAL OIL/WHITE PETROLATUM OINTMENT 1 APPLIC EACH EYE ×2 (09:06→20:25)
[2022-10-05] MEDS: PANTOPRAZOLE SODIUM IV 40 MG VIAL IV PUSH (09:06)
[2022-10-05 09:28] LABS: Procalcitonin 0.1 ng/mL
[2022-10-05] MEDS: LIDOCAINE HCL 1% PF INJ 5 ML VIAL INFILTRATE (11:00)
[2022-10-05] MEDS: APIXABAN 5 MG TABLET PO ×2 (11:53→20:25)
[2022-10-05] MEDS: LACTATED RINGERS 1,000 ML 100 ML IV CONT ×2 (12:44→23:30)
--- NOTE | 2022-10-05 15:58 | PM.IMPN ---
Progress Note: A&P Assessment and Plan (1) Acute on chronic respiratory failure with hypoxia and hypercapnia: Code(s): J96.21 - Acute and chronic respiratory failure with hypoxia; J96.22 - Acute and chronic respiratory failure with hypercapnia Status: Acute Assessment and Plan: Patient presents to an OSH for shortness of breath and found to have acute on chronic respiratory failure secondary to COPD exacerbation and questionable pneumonia. Patient has baseline severe COPD and diastolic heart failure Patient now intubated (10/04) and on mechanical ventilation. Continue full mechanical ventilation support to prevent hypoxemia/hypercarbia and end organ damage. Chest x-ray reviewed and shows severe emphysema but no opacities. PCT level 0.1 Sputum and blood cultures pending Continue steroids and bronchodilators Continue current empiric Rocephin, azithro and Vancomycin Cautious IV fluids (2) Heart failure with preserved ejection fraction: Code(s): I50.30 - Unspecified diastolic (congestive) heart failure Status: Acute Assessment and Plan: Echo 06/30/22 showing EF 50-55% with Grade I diastolic dysfunction and mild valvular disease. She is on IV fluids so monitor fluid status closely. Emphysemamakes it difficult to see pulmonary edema. Monitor closely (3) Chronic obstructive pulmonary disease: Code(s): J44.9 - Chronic obstructive pulmonary disease, unspecified Status: Acute Assessment and Plan: As above (4) Pneumonia: Code(s): J18.9 - Pneumonia, unspecified organism Status: Acute Assessment and Plan: No opacities noted on imaging. WBC normal. More likely bronchitis. Cultures as mentioned above. Contineu abx (5) History of pulmonary embolus (PE): Code(s): Z86.711 - Personal history of pulmonary embolism Status: Acute Assessment and Plan: Stable. Continue apixaban Plan DVT prophylaxis -apixaban Stress ulcer prophylaxis -PPI Nutrition -start Tube Feeds Code Status - Full Code Subjective Date/time seen: 10/05/22 15:58 Interval history: 57yo female smoker with severe COPD, chronic hypoxic and hypercapnic respiratory failure on 3 L nasal cannula and?AVAPS settings at nighttime, dCHF, DVT and PE in 2019, and HTN who was directly admitted to the ICU from [facility] in [place] with acute on chronic respiratory failure.? Patient intubated and sedated thus unable to provide hx. No family in the room. Review of Systems Review of Systems: ROS unobtainable: Yes unobtainable due to endotracheal tube Exam Narrative: Tm 101.2 99.0 120/64 100 20 97% MV Gen - thin female who appears older than stated age HEENT - ETT and OGT secured Chest - distant BS, poor chest wall soft tissue CV - RRR S1/S2. Tele showing no significant dysrhythmias Abd - firm, scaphoid, tympanitic. +BS Ext - No pedal edema.PICC line in RUE. poor muscle mass Neuro - sedated Skin - Warm and dry Objective Data Vital Signs Vital Signs: Vital Signs - 24 hr 10/04/22 20:43 10/04/22 20:59 10/04/22 21:00 Temperature Pulse Rate 90 99 99 Respiratory Rate 17 16 16 Blood Pressure Pulse Oximetry Oxygen Delivery Fraction of Inspired Oxygen 10/04/22 20:23 10/04/22 20:00 10/04/22 20:00 Temperature 98 F Pulse Rate 93 93 Respiratory Rate 24 H Blood Pressure 71/44 L Pulse Oximetry 99 100 100 Oxygen Delivery Mechanical Ventilation Mechanical Ventilation Fraction of Inspired Oxygen 30 35 10/04/22 20:15 10/04/22 22:00 10/04/22 22:00 Temperature Pulse Rate 97 97 Respiratory Rate 16 Blood Pressure 103/92 H 94/77 L Pulse Oximetry 100 Oxygen Delivery Fraction of Inspired Oxygen 10/04/22 22:43 10/05/22 00:00 10/05/22 00:00 Temperature 99.6 F Pulse Rate 95 94 Respiratory Rate 16 Blood Pressure 92/76 L Pulse Oximetry 100 100 100 Oxygen Delivery Mechanical Ventilation Mechanica
[2022-10-05] MEDS: FENTANYL 2,500MCG/NS250ML(*CRX 2,500 MCG/250 ML BAG IV CONT (16:12)
[2022-10-05] MEDS: cefTRIAXone 2 GM/NS 100 ML 2 GM/100 ML BAG IVPB (20:23)
[2022-10-05] MEDS: AZITHROMYCIN 500 MG/NS 250 ML 500 MG/250 ML BAG 250 MG IVPB (20:23)
[2022-10-05] MEDS: MONTELUKAST SODIUM 10 MG TABLET PO (20:25)
[2022-10-05] MEDS: VANCOMYCIN 750 MG/NS 250 ML 750 MG/250 ML BAG 250 MG IVPB (21:54)
[2022-10-05] MEDS: CENTRAL LINE FLUSH 10 ML IV PUSH (21:55)
--- NOTE | 2022-10-05 22:05 | PC.NURSE ---
Patient found on Versed drip at 4mg per HR, last charted at 2mg. Kept at 4mg per HR content on vent able to follow commands.
[2022-10-05] MEDS: MIDAZOLAM 100MG/NS 100ML(*CRX) 100 MG/100 ML BAG IV CONT (23:25)
[2022-10-06] VITALS (31 sets, daily range): BP systolic 127–157; BP diastolic 86–103; PULSE 72–100; RESP 16–20; TEMP 36.9–37.6; O2SAT 90–100
[2022-10-06] MEDS: ALBUTEROL SULFATE NEB 2.5 MG/3 ML INH INHALATION ×4 (02:31→20:00)
[2022-10-06] MEDS: IPRATROPIUM BR 0.02% INH SOLN 0.5 MG/2.5 ML VIAL INHALATION ×4 (02:31→20:00)
[2022-10-06] MEDS: methylPREDNISolone SOD SUCC 40 MG VIAL IV PUSH ×4 (03:08→20:10)
[2022-10-06] MEDS: CENTRAL LINE FLUSH 10 ML IV PUSH ×3 (05:01→21:26)
[2022-10-06 05:11] LABS: Hematocrit 28.9 % (37.0-47.0); Hemoglobin 8.9 g/dL (12.0-15.0); Mean Corpuscular HGB Conc 30.8 g/dl (32-36); Mean Corpuscular Hemoglobin 29.1 pg (26-34); Mean Corpuscular Volume 94.4 fl (80-100); Mean Platelet Volume 10.5 fl (7.4-10.4); Platelet Count Result 173 k/mm3 (150-375); Red Blood Count 3.06 M/mm3 (4.2-5.4); Red Cell Distribution Width 12.5 % (11.5-14.5); White Blood Count 4.3 K/mm3 (4.5-10.0)
[2022-10-06 05:53] LABS: Blood Urea Nitrogen 39 mg/dL (7-17); Calcium 8.4 mg/dL (8.4-10.2); Carbon Dioxide > 40 mmol/L (22-30); Chloride 87 mmol/L (98-107); Estimated CRCL calculation 63 ml/min; Estimated Glomerular Filt Rate > 60; Glucose 201 mg/dL (65-110); Magnesium 2.2 mg/dL (1.6-2.3); Potassium 4.5 mmol/L (3.4-5.0); Sodium 131 mmol/L (137-145)
[2022-10-06 06:04] LABS: Alveolar/Arterial O2 Gradient 75.7 mmHg; Base Excess ABG 12.6 mEq/l (+/-2.0); Carboxyhemoglobin 0.7 % THb (0-2.0); Fractional Inspired Oxygen 35 %; HCO3 ABG 43.6 mEq/l (22.0-26.0); Methemoglobin ABG 0.4 %THb (0-1.5); Oxygen Content ABG 20.1 %vol (16.0-22.0); Oxygen Saturation ABG 92.2 % (95.0-100.0); Oxyhemoglobin 90.7 % THb (90.0-100.0); PO2 FiO2 Ratio Arterial Blood 2.06 %; Reduced Hemoglobin 8.2 %THb (0-5.0); Total Hemoglobin 15.8 g/dL (12.0-18.0); pH ABG 7.315 (7.350-7.450)
[2022-10-06 06:07] LABS: PCO2 ABG 87.6 mmHg (35.0-45.0)
[2022-10-06 06:08] LABS: Device VENTILATOR; Modified Allen's Test Pass; Site Drawn RIGHT RADIAL
[2022-10-06 06:09] LABS: Arterial Blood Gas PEEP 5 cmH2O; Arterial Blood Gas Tidal Volume 350 ml; Arterial Blood Gas Vent Mode CMV; Arterial Blood Gas Ventilator rate 20 /MIN
[2022-10-06] MEDS: APIXABAN 5 MG TABLET PO ×2 (08:41→20:10)
[2022-10-06] MEDS: PANTOPRAZOLE SODIUM IV 40 MG VIAL IV PUSH (08:41)
[2022-10-06] MEDS: MINERAL OIL/WHITE PETROLATUM OINTMENT 1 APPLIC EACH EYE ×2 (08:41→20:10)
--- NOTE | 2022-10-06 10:22 | PM.IMPN ---
Progress Note: A&P Assessment and Plan (1) Acute on chronic respiratory failure with hypoxia and hypercapnia: Code(s): J96.21 - Acute and chronic respiratory failure with hypoxia; J96.22 - Acute and chronic respiratory failure with hypercapnia Status: Acute Assessment and Plan: Patient presents to an OSH for shortness of breath and found to have acute on chronic respiratory failure secondary to COPD exacerbation and questionable pneumonia. Patient has baseline severe COPD on 3L chronically and diastolic heart failure. Patient now intubated (10/04) and on mechanical ventilation. Continue full mechanical ventilation support to prevent hypoxemia/hypercarbia and end organ damage. Chest x-ray reviewed today and shows severe emphysema but no opacities. PCT level 0.1 Sputum cultures pending BCx NGTD UCx growing Klebsiella aerogenes Continue steroids and bronchodilators Continue current empiric Rocephin, azithro and Vancomycin Vent management per printing supervisor. Appreciate their input. (2) Heart failure with preserved ejection fraction: Code(s): I50.30 - Unspecified diastolic (congestive) heart failure Status: Acute Assessment and Plan: Echo 06/30/22 showing EF 50-55% with Grade I diastolic dysfunction and mild valvular disease. She was on IV fluids but now stopped. Monitor closely (3) Chronic obstructive pulmonary disease: Code(s): J44.9 - Chronic obstructive pulmonary disease, unspecified Status: Acute Assessment and Plan: As above (4) Pneumonia: Code(s): J18.9 - Pneumonia, unspecified organism Status: Acute Assessment and Plan: No opacities noted on imaging. WBC normal. More likely bronchitis. Cultures as mentioned above. Contineue abx (5) History of pulmonary embolus (PE): Code(s): Z86.711 - Personal history of pulmonary embolism Status: Acute Assessment and Plan: Stable. Continue apixaban (6) UTI (urinary tract infection): Code(s): N39.0 - Urinary tract infection, site not specified Status: Acute Assessment and Plan: UCx noted. Continue Rocephin. Follow up on sensitivities. Plan DVT prophylaxis -apixaban Stress ulcer prophylaxis -PPI Nutrition -start Tube Feeds Code Status - Full Code Subjective Date/time seen: 10/06/22 10:22 Interval history: 57yo female smoker with severe COPD, chronic hypoxic and hypercapnic respiratory failure on 3 L nasal cannula and?AVAPS settings at nighttime, dCHF, DVT and PE in 2019, and HTN who was directly admitted to the ICU from [facility] in [place] with acute on chronic respiratory failure.? Patient intubated and sedated thus unable to provide hx. No family in the room. No problems overnight per RN. Exam Narrative: AF 98.8 133/94 99 18 97% MV Gen - thin female who appears older than stated age intubated and sedated HEENT - ETT and OGT secured Chest - distant BS with inspiratory and expiratory wheezing CV - RRR S1/S2. Tele showing no significant dysrhythmias Abd - firm, scaphoid, tympanitic. +BS Ext - No pedal edema. PICC line in RUE. poor muscle mass Neuro - sedated Skin - cool and dry Objective Data Vital Signs Vital Signs: Vital Signs - 24 hr 10/05/22 12:00 10/05/22 12:00 10/05/22 12:00 Temperature 99 F Pulse Rate 93 93 93 Respiratory Rate 20 20 Blood Pressure 112/86 Pulse Oximetry 100 100 Oxygen Delivery Mechanical Ventilation Fraction of Inspired Oxygen 35 10/05/22 13:00 10/05/22 13:00 10/05/22 13:10 Temperature Pulse Rate 95 95 90 Respiratory Rate 20 20 Blood Pressure Pulse Oximetry 100 Oxygen Delivery Mechanical Ventilation Fraction of Inspired Oxygen 35 10/05/22 14:00 10/05/22 14:00 10/05/22 16:12 Temperature Pulse Rate 100 100 92 Respiratory Rate 20 20 Blood Pressure 120/64 Pulse Oximetry 97 Oxygen Delivery Fraction of Inspired Oxygen 10/05/22 16:1
--- NOTE | 2022-10-06 10:42 | PCNFU ---
Nutrition Follow-Up Complete: Inadequate energy intake related to NPO as evidenced by mechanical vent, need for full tube feeding. goal: Tolerate tube feeding at goal rate Meet estimated energy requirements Patient is progressing towards goal. Pt current nutrition is Vital AF 1.2 at 40ml/hr. Nutrition recommendations: 45 ml/hr goal rate. Last recorded weight is 44.9 kg. Bowel Motility: No BM reported. Labs Reviewed:Glu 201, BUN 39, Cr 0.6,Hct 28.96,Hgb 8.6 Meds Noted:Fentanyl, Versed, Vancomycin, Protonix, Rocephin Skin: WNL Additional Notes: Patient remains on mechanical vent and tube feedings of Vital AF 1.2 at 40 ml/hr. Tube feedings are being tolerated at 40 ml/hr providing 1056 kcals/66 gms protein/714 ml water. Tube feedings meeting 82% kcal needs and 96% protein needs. MD orders to increase tube feeding rate to 45 ml/hr-tube feedings providing 1188 kcals/74 gms protein/802 ml water. Meeting 92% kcal needs at 30 kcal/kg. Protein at 100% needs. Flush is 30 ml q 4 hours. Agree with diet orders. Monitoring tolerance, labs, weights, plan of care Follow daily in ICU rounds. Reassess Wednesday and Wednesday per policy
--- NOTE | 2022-10-06 11:14 | WPDINTPN ---
Progress Note: A&P Assessment and Plan (1) Acute on chronic respiratory failure with hypoxia and hypercapnia: Code(s): J96.21 - Acute and chronic respiratory failure with hypoxia; J96.22 - Acute and chronic respiratory failure with hypercapnia Status: Acute Assessment and Plan: Acute on chronic Respiratory failure secondary to COPD exacerbation and questionable pneumonia. Patient has baseline severe COPD and diastolic heart failure -10/04: Patient intubated rule and placed on mechanical ventilation and transferred to [facility] ICU -Continue full mechanical ventilation support to prevent hypoxemia/hypercarbia and end organ damage. -ABG reviewed , made ventilatory changes but further limited by high peak pressures on the ventilator -Chest x-ray this morning: Severe emphysema, Side port of the nasogastric tube just above the gastroesophageal junction. Recommend advancing 2 to 3 cm -Continue steroids -Continue bronchodilators Continue current empiric antibiotics Rocephin, and azithromycin -10/05: Blood cultures obtained and pending -10/04: Urine cultures growing Klebsiella aerogenes -Procalcitonin - 0.1 -IV fluids have been discontinued -ventilator adjusted as ABG showed hypercapnic respiratory failure (2) Heart failure with preserved ejection fraction: Code(s): I50.30 - Unspecified diastolic (congestive) heart failure Status: Acute Assessment and Plan: Echo 06/30/22 Summary ? 1. Complete two-dimensional, color flow and Doppler transthoracic echocardiogram is performed. ? 2. Left ventricular chamber dimension is normal. ? 3. Left ventricular systolic function is normal, estimated at 50-55%. ? 4. The left ventricular diastolic function is grade I diastolic dysfunction. ? 5. Right ventricular systolic function is normal. ? 6. There is mild aortic valve calcification. ? 7. The mitral valve annulus is mildly calcified. ? 8. The mitral valve has thickened leaflets. ? 9. There is trace mitral valve regurgitation. ? 10. There is mild tricuspid valve regurgitation. ? 11. There is mild aortic atherosclerosis. ? 12. Normal inferior vena cava with >50% collapse upon inspiration consistent with normal right atrial pressure, 3 mmHg. (3) Chronic obstructive pulmonary disease: Code(s): J44.9 - Chronic obstructive pulmonary disease, unspecified Status: Acute Assessment and Plan: See above (4) Pneumonia: Code(s): J18.9 - Pneumonia, unspecified organism Status: Acute Assessment and Plan: See above (5) History of pulmonary embolus (PE): Code(s): Z86.711 - Personal history of pulmonary embolism Status: Acute Assessment and Plan: Continue apixaban Plan DVT prophylaxis -apixaban Stress ulcer prophylaxis -PPI Nutrition -start Tube Feeds Code Status - Full Code Total Critical Care Time - 34 minutes Due to a high probability of clinically significant, life threatening deterioration, the patient required my highest level of preparedness to intervene emergently and I personally spent this critical care time directly and personally managing the patient. This critical care time included obtaining a history; examining the patient; pulse oximetry; ordering and review of studies; arranging urgent treatment with development of a management plan; evaluation of patient's response to treatment; frequent reassessment; and discussions with other providers. It was exclusive of separately billable procedures and treating other patients and teaching time. Please see Assessment and Plan section and the rest of the note for further information on patient assessment and treatment Subjective Date/time seen: 10/06/22 11:14 Interval history: 57yo female smoker with severe COPD, chronic hypoxic and hypercapnic respiratory failure on 3 L nasal cannula and?AVAPS settings at nighttime, dCHF, DVT and PE in 2019, and HTN who was directly admitted to the ICU from [facility]
[2022-10-06 12:17] LABS: Alveolar/Arterial O2 Gradient 73.2 mmHg; Base Excess ABG 13.7 mEq/l (+/-2.0); Fractional Inspired Oxygen 30 %; HCO3 ABG 39.8 mEq/l (22.0-26.0); Oxygen Content ABG 13.2 %vol (16.0-22.0); Oxygen Saturation ABG 94.3 % (95.0-100.0); Oxyhemoglobin 92.4 % THb (90.0-100.0); PCO2 ABG 59.7 mmHg (35.0-45.0); PO2 ABG 70.6 mmHg (80.0-100.0); PO2 FiO2 Ratio Arterial Blood 2.35 %; Total Hemoglobin 10.1 g/dL (12.0-18.0); pH ABG 7.442 (7.350-7.450)
[2022-10-06 12:18] LABS: Arterial Blood Gas PEEP 5 cmH2O; Arterial Blood Gas Tidal Volume 400 ml; Arterial Blood Gas Vent Mode CMV; Arterial Blood Gas Ventilator rate 18 /MIN; Device VENTILATOR; Modified Allen's Test Pass; Site Drawn LEFT RADIAL
[2022-10-06] MEDS: FENTANYL 2,500MCG/NS250ML(*CRX 2,500 MCG/250 ML BAG 12.5 MCG IV CONT (15:54)
[2022-10-06] MEDS: AZITHROMYCIN 500 MG/NS 250 ML 500 MG/250 ML BAG 250 MG IVPB (20:09)
[2022-10-06] MEDS: cefTRIAXone 2 GM/NS 100 ML 2 GM/100 ML BAG IVPB (20:10)
[2022-10-06] MEDS: MONTELUKAST SODIUM 10 MG TABLET PO (20:10)
[2022-10-06] MEDS: MIDAZOLAM 100MG/NS 100ML(*CRX) 100 MG/100 ML BAG IV CONT (21:24)
[2022-10-06 22:44] LABS: Vancomycin Trough < 5.0 ug/mL (10.0-20.0)
[2022-10-06] MEDS: VANCOMYCIN 1,000 MG/NS 250 ML 1,000 MG/250 ML BAG 250 MG IVPB (23:44)
[2022-10-07] VITALS (13 sets, daily range): BP systolic 126–127; BP diastolic 89–90; PULSE 78–87; RESP 18; TEMP 36.6; O2SAT 98–100
--- NOTE | 2022-10-07 10:45 | PCFNICU ---
ICU Rounding Note: Pt current nutrition is . Nutrition recommendation: Last recorded weight is 51.3 kg. Bowel Motility: Labs Reviewed: Meds Noted: Skin: Additional Notes: Following daily in ICU rounds. Monitoring tolerance, labs, weights, plan of care Follow daily in ICU rounds. Reassess Wednesday and Wednesday per policy .
--- NOTE | 2022-10-07 10:45 | PCFNICU ---
ICU Rounding Note: Pt current nutrition is Vital AF 1.2 at 45 ml/hr. Last recorded weight is 51.3 kg. Bowel Motility:No BM reported-MD is aware. Labs Reviewed:No new labs to report. Meds Noted:Fentanyl, Versed, Zithromax, Protonix Skin:WNL Additional Notes:Patient remains on mechanical vent and tube feedings of Vital AF 1.2 at 45 ml/hr and tolerating per nursing. Flush 30 ml q 4 hours. Agree with diet orders. Following daily in ICU rounds. Monitoring tolerance, labs, weights, plan of care, reassess Wednesday and Wednesday per policy .
--- NOTE | 2022-10-07 16:47 | PC.NURSE ---
Paper documentation exists on this patient due to [employer] downtime on 10/07/22 from 00:30 to 16:30.
[2022-10-07 18:14] LABS: Alveolar/Arterial O2 Gradient 69.5 mmHg; Base Excess ABG 13.2 mEq/l (+/-2.0); Carboxyhemoglobin 0.2 % THb (0-2.0); Fractional Inspired Oxygen 30 %; HCO3 ABG 38.9 mEq/l (22.0-26.0); Methemoglobin ABG 0.3 %THb (0-1.5); Oxygen Content ABG 13.7 %vol (16.0-22.0); Oxygen Saturation ABG 95.8 % (95.0-100.0); Oxyhemoglobin 93.8 % THb (90.0-100.0); PCO2 ABG 56.5 mmHg (35.0-45.0); Reduced Hemoglobin 5.7 %THb (0-5.0); Total Hemoglobin 10.3 g/dL (12.0-18.0); pH ABG 7.456 (7.350-7.450)
[2022-10-07] MEDS: ALBUTEROL SULFATE NEB 2.5 MG/3 ML INH INHALATION (20:08)
[2022-10-07] MEDS: IPRATROPIUM BR 0.02% INH SOLN 0.5 MG/2.5 ML VIAL INHALATION (20:08)
[2022-10-07] MEDS: APIXABAN 5 MG TABLET PO (20:51)
[2022-10-07] MEDS: methylPREDNISolone SOD SUCC 40 MG VIAL IV PUSH (20:51)
[2022-10-07] MEDS: cefTRIAXone 2 GM/NS 100 ML 2 GM/100 ML BAG IVPB (20:51)
[2022-10-07] MEDS: MINERAL OIL/WHITE PETROLATUM OINTMENT 1 APPLIC EACH EYE (20:51)
[2022-10-07] MEDS: AZITHROMYCIN 500 MG/NS 250 ML 500 MG/250 ML BAG 250 MG IVPB (20:52)
[2022-10-07] MEDS: CENTRAL LINE FLUSH 10 ML IV PUSH (20:52)
[2022-10-07] MEDS: MONTELUKAST SODIUM 10 MG TABLET PO (20:53)
[2022-10-07] MEDS: FENTANYL 2,500MCG/NS250ML(*CRX 2,500 MCG/250 ML BAG 12.5 MCG IV CONT (21:04)
[2022-10-07] MEDS: MIDAZOLAM 100MG/NS 100ML(*CRX) 100 MG/100 ML BAG 6 MG IV CONT (21:06)
[2022-10-08] VITALS (41 sets, daily range): BP systolic 115–163; BP diastolic 84–111; PULSE 69–141; RESP 7–26; TEMP 36.1–36.9; O2SAT 90–100
[2022-10-08 00:47] LABS: Glucose Point of Care 233 mg/dl (65-105)
[2022-10-08] MEDS: IPRATROPIUM BR 0.02% INH SOLN 0.5 MG/2.5 ML VIAL INHALATION ×4 (02:18→20:13)
[2022-10-08] MEDS: ALBUTEROL SULFATE NEB 2.5 MG/3 ML INH INHALATION ×4 (02:18→20:13)
[2022-10-08] MEDS: methylPREDNISolone SOD SUCC 40 MG VIAL IV PUSH (02:52)
[2022-10-08 02:53] LABS: Pneumococcal Antigen Urine Not Detected (Not Detected)
[2022-10-08 04:59] LABS: Hematocrit 28.8 % (37.0-47.0); Hemoglobin 8.9 g/dL (12.0-15.0); Mean Corpuscular HGB Conc 30.9 g/dl (32-36); Mean Corpuscular Hemoglobin 29.2 pg (26-34); Mean Corpuscular Volume 94.4 fl (80-100); Mean Platelet Volume 11.2 fl (7.4-10.4); Platelet Count Result 148 k/mm3 (150-375); Red Blood Count 3.05 M/mm3 (4.2-5.4); Red Cell Distribution Width 12.8 % (11.5-14.5); White Blood Count 4.7 K/mm3 (4.5-10.0)
[2022-10-08 05:17] LABS: Alanine Aminotransferase 21 U/L (6-35); Albumin Level 3.3 g/dL (3.5-5.1); Alkaline Phosphatase 59 U/L (38-126); Aspartate Amino Transferase 24 U/L (14-36); Bilirubin,Total 0.3 mg/dL (0.2-1.3); Blood Urea Nitrogen 32 mg/dL (7-17); Calcium 8.3 mg/dL (8.4-10.2); Carbon Dioxide > 40 mmol/L (22-30); Chloride 89 mmol/L (98-107); Estimated CRCL calculation 103 ml/min; Estimated Glomerular Filt Rate > 60; Glucose 232 mg/dL (65-110); Phosphorus 3.6 mg/dL (2.5-4.5); Potassium 4.6 mmol/L (3.4-5.0); Sodium 131 mmol/L (137-145)
[2022-10-08 05:32] LABS: Alveolar/Arterial O2 Gradient 90.9 mmHg; Base Excess ABG 7.1 mEq/l (+/-2.0); Carboxyhemoglobin 0.3 % THb (0-2.0); Fractional Inspired Oxygen 30 %; HCO3 ABG 32.3 mEq/l (22.0-26.0); Methemoglobin ABG 0.3 %THb (0-1.5); Oxygen Content ABG 14.7 %vol (16.0-22.0); Oxygen Saturation ABG 93.5 % (95.0-100.0); Oxyhemoglobin 90.6 % THb (90.0-100.0); PCO2 ABG 48.6 mmHg (35.0-45.0); PO2 ABG 65.9 mmHg (80.0-100.0); Reduced Hemoglobin 8.8 %THb (0-5.0); Total Hemoglobin 11.5 g/dL (12.0-18.0)
[2022-10-08 05:33] LABS: Device VENTILATOR; Modified Allen's Test Pass; Site Drawn RIGHT RADIAL
[2022-10-08] MEDS: CENTRAL LINE FLUSH 10 ML IV PUSH ×3 (05:33→20:15)
[2022-10-08 05:34] LABS: Magnesium 2.2 mg/dL (1.6-2.3)
[2022-10-08 05:34] LABS: Arterial Blood Gas PEEP 5 cmH2O; Arterial Blood Gas Tidal Volume 400 ml; Arterial Blood Gas Vent Mode CMV; Arterial Blood Gas Ventilator rate 18 /MIN
[2022-10-08] MEDS: acetaZOLAMIDE SODIUM FOR INJ 500 MG VIAL 250 MG IV PUSH (07:51)
--- NOTE | 2022-10-08 08:05 | WPDINTPN ---
Progress Note: A&P Assessment and Plan (1) Acute on chronic respiratory failure with hypoxia and hypercapnia: Code(s): J96.21 - Acute and chronic respiratory failure with hypoxia; J96.22 - Acute and chronic respiratory failure with hypercapnia Status: Acute Assessment and Plan: Acute on chronic Respiratory failure secondary to COPD exacerbation and questionable pneumonia. Patient has baseline severe COPD and diastolic heart failure -10/04: Patient intubated blood the outside hospital, placed on mechanical ventilation and transferred to [facility] ICU -Continue full mechanical ventilation support to prevent hypoxemia/hypercarbia and end organ damage. -Chest x-ray this morning: Severe emphysema, -weaning steroids -Continue bronchodilators -Continue current empiric antibiotics Rocephin, and azithromycin (10/04) -vancomycin discontinue -10/05: Blood cultures obtained and pending -10/04: Urine cultures growing Klebs aerogenes ( Enterobacter) -sedated with fentanyl and Versed infusion -have asked the bedside RN to discontinue sedation, hold tube feeds. Once patient more awake will place on spontaneous breathing trial and evaluate for extubation (2) Heart failure with preserved ejection fraction: Code(s): I50.30 - Unspecified diastolic (congestive) heart failure Status: Acute Assessment and Plan: Echo 06/30/22 Summary ? 1. Complete two-dimensional, color flow and Doppler transthoracic echocardiogram is performed. ? 2. Left ventricular chamber dimension is normal. ? 3. Left ventricular systolic function is normal, estimated at 50-55%. ? 4. The left ventricular diastolic function is grade I diastolic dysfunction. ? 5. Right ventricular systolic function is normal. ? 6. There is mild aortic valve calcification. ? 7. The mitral valve annulus is mildly calcified. ? 8. The mitral valve has thickened leaflets. ? 9. There is trace mitral valve regurgitation. ? 10. There is mild tricuspid valve regurgitation. ? 11. There is mild aortic atherosclerosis. ? 12. Normal inferior vena cava with >50% collapse upon inspiration consistent with normal right atrial pressure, 3 mmHg. (3) Chronic obstructive pulmonary disease: Code(s): J44.9 - Chronic obstructive pulmonary disease, unspecified Status: Acute Assessment and Plan: See above (4) Pneumonia: Code(s): J18.9 - Pneumonia, unspecified organism Status: Acute Assessment and Plan: See above (5) History of pulmonary embolus (PE): Code(s): Z86.711 - Personal history of pulmonary embolism Status: Acute Assessment and Plan: Continue apixaban Plan DVT prophylaxis -apixaban Stress ulcer prophylaxis -PPI Nutrition -tolerating tube feeds, currently on hold for possible extubation Code Status - Full Code Total Critical Care Time - 34 minutes Due to a high probability of clinically significant, life threatening deterioration, the patient required my highest level of preparedness to intervene emergently and I personally spent this critical care time directly and personally managing the patient. This critical care time included obtaining a history; examining the patient; pulse oximetry; ordering and review of studies; arranging urgent treatment with development of a management plan; evaluation of patient's response to treatment; frequent reassessment; and discussions with other providers. It was exclusive of separately billable procedures and treating other patients and teaching time. Please see Assessment and Plan section and the rest of the note for further information on patient assessment and treatment Subjective Date/time seen: 10/08/22 08:05 Interval history: 57yo female smoker with severe COPD, chronic hypoxic and hypercapnic respiratory failure on 3 L nasal cannula and?AVAPS settings at nighttime, dCHF, DVT and PE in 2019, and HTN who was directly admitted to the ICU from [facility]
[2022-10-08] MEDS: DOCUSATE SODIUM LIQ 100 MG/10 ML UDC FEED TUBE (08:06)
[2022-10-08] MEDS: methylPREDNISolone SOD SUCC 40 MG VIAL 20 MG IV PUSH ×2 (08:06→20:21)
[2022-10-08] MEDS: PANTOPRAZOLE SODIUM IV 40 MG VIAL IV PUSH (08:07)
[2022-10-08] MEDS: APIXABAN 5 MG TABLET PO ×2 (08:07→20:42)
[2022-10-08] MEDS: polyethylene glycoL 3350 17 GM POWD.PACK PO (08:07)
[2022-10-08] MEDS: MINERAL OIL/WHITE PETROLATUM OINTMENT 1 APPLIC EACH EYE (08:08)
--- NOTE | 2022-10-08 09:10 | PCRCNOTE ---
Attempted SBT per Dr. Medina. Patient experienced elevated heart rate, decreased saturations and difficulty breathing. Placed back in ASV per Dr. Medina.
[2022-10-08] MEDS: dexmedeTOMIDine 400 MCG/100 ML 400 MCG/100 ML BAG IV CONT (09:19)
[2022-10-08 09:42] LABS: Device VENTILATOR
[2022-10-08 09:43] LABS: Arterial Blood Gas PEEP 5 cmH2O; Arterial Blood Gas Tidal Volume 400 ml; Arterial Blood Gas Vent Mode ASSIST CONTROL; Arterial Blood Gas Ventilator rate 18 /MIN
[2022-10-08] MEDS: LORazepam INJ (*CRX) 2 MG/ML VIAL IV PUSH (10:02)
--- NOTE | 2022-10-08 10:02 | PM.IMPN ---
Progress Note: A&P Assessment and Plan (1) Acute on chronic respiratory failure with hypoxia and hypercapnia: Code(s): J96.21 - Acute and chronic respiratory failure with hypoxia; J96.22 - Acute and chronic respiratory failure with hypercapnia Status: Acute Assessment and Plan: Acute on chronic Respiratory failure secondary to COPD exacerbation and questionable pneumonia. Patient has baseline severe COPD and diastolic heart failure -10/04: Patient intubated blood the outside hospital, placed on mechanical ventilation and transferred to [facility] ICU -Continue full mechanical ventilation support to prevent hypoxemia/hypercarbia and end organ damage. -Chest x-ray this morning: Severe emphysema, -weaning steroids -Continue bronchodilators -Continue current empiric antibiotics Rocephin, and azithromycin (10/04) -vancomycin discontinue -10/05: Blood cultures obtained and pending -10/04: Urine cultures growing Klebs aerogenes ( Enterobacter) -sedated with fentanyl and Versed infusion -have asked the bedside RN to discontinue sedation, hold tube feeds. Once patient more awake will place on spontaneous breathing trial and evaluate for extubation (2) Heart failure with preserved ejection fraction: Code(s): I50.30 - Unspecified diastolic (congestive) heart failure Status: Acute Assessment and Plan: Echo 06/30/22 Summary ? 1. Complete two-dimensional, color flow and Doppler transthoracic echocardiogram is performed. ? 2. Left ventricular chamber dimension is normal. ? 3. Left ventricular systolic function is normal, estimated at 50-55%. ? 4. The left ventricular diastolic function is grade I diastolic dysfunction. ? 5. Right ventricular systolic function is normal. ? 6. There is mild aortic valve calcification. ? 7. The mitral valve annulus is mildly calcified. ? 8. The mitral valve has thickened leaflets. ? 9. There is trace mitral valve regurgitation. ? 10. There is mild tricuspid valve regurgitation. ? 11. There is mild aortic atherosclerosis. ? 12. Normal inferior vena cava with >50% collapse upon inspiration consistent with normal right atrial pressure, 3 mmHg. (3) Chronic obstructive pulmonary disease: Code(s): J44.9 - Chronic obstructive pulmonary disease, unspecified Status: Acute Assessment and Plan: See above (4) Pneumonia: Code(s): J18.9 - Pneumonia, unspecified organism Status: Acute Assessment and Plan: See above (5) History of pulmonary embolus (PE): Code(s): Z86.711 - Personal history of pulmonary embolism Status: Acute Assessment and Plan: Continue apixaban Plan DVT prophylaxis -apixaban Stress ulcer prophylaxis -PPI Nutrition -tolerating tube feeds, currently on hold for possible extubation Code Status - Full Code Subjective Date/time seen: 10/08/22 10:02 Interval history: 57yo female smoker with severe COPD, chronic hypoxic and hypercapnic respiratory failure on 3 L nasal cannula and?AVAPS settings at nighttime, dCHF, DVT and PE in 2019, and HTN who was directly admitted to the ICU from [facility] in [place] with acute on chronic respiratory failure on 10/04/2022? No overnight events noted, intubated, sedated, no fevers Review of Systems Review of Systems: ROS unobtainable: Yes unobtainable due to endotracheal tube Exam Narrative: General: Pt is? cachectic old frail female who is currently sedated, intubated and on mechanical ventilation Lungs/Chest: Trachea central Coarse BS B/L,? decreased breath sounds throughout both lungs,? hyperinflated lungs, no wheezing noted Cardiac: RRR. Normal S1 S2. No murmurs Circulation: Dorsalis pedis bilaterally dopplerable. Feet are warm Abdomen: Normoactive bowel sounds. Soft. NT. ND. Extremities: No cyanosis or edema. Warm : Boss in place Neurologic: Patient intubated and sedated, opens her eyes and follows simple commands in all extrem
--- NOTE | 2022-10-08 11:05 | PCFNICU ---
ICU Rounding Note: Pt current nutrition is Vital AF 1.2 at 45 ml/hr. Last recorded weight is 51.3 kg. Bowel Motility:No BM reported at this time. Labs Reviewed:Glu 232, BUN 32, Cr 0.4, Na 131,Alb 3.3,Hct 28.8,Hgb 8.9 Meds Noted:Colace, Miralax,Precedex Skin: WNL Additional Notes: Patient remains on mechanical vent. Tube feedings are at goal rate of 45 ml/hr of Vital AF 1.2 and tolerating. Flush 30 ml q 4 hours. Following daily in ICU rounds. Monitoring tolerance, labs, weights, plan of care, reassess Wednesday and Wednesday per policy .
[2022-10-08 13:00] LABS: Hematocrit 28.1 % (37.0-47.0); Hemoglobin 8.7 g/dL (12.0-15.0); Immature Granulocyte Absolute 0.02 K/mm3 (0.00-0.031); Immature Granulocyte Percent A 0.4 % (0-0.5); Immature Reticulocyte Fraction 14.4 % (3.0-15.9); Lymphocytes Absolute Auto 0.25 K/mm3 (0.9-3.2); Lymphocytes Percent Auto 5.2 % (18.3-44.2); Mean Corpuscular Hemoglobin 29.3 pg (26-34); Mean Corpuscular Volume 94.6 fl (80-100); Mean Platelet Volume 10.5 fl (7.4-10.4); Monocytes Absolute Auto 0.3 K/mm3 (0.1-0.6); Monocytes Percent Auto 5.6 % (2.6-8.5); Neutrophils Absolute Auto 4.3 K/mm3 (1.3-6.7); Neutrophils Percent Auto 88.8 % (45.5-73.1); Platelet Count Result 149 k/mm3 (150-375); Red Blood Count 2.97 M/mm3 (4.2-5.4); Red Cell Distribution Width 12.6 % (11.5-14.5); Reticulocyte Hemoglobin Conten 31.5 pg (28.2-35.7); Reticulocyte Percent 1.11 % (0.7-4.3); Reticulocytes Absolute 0.03 M/mm3 (0.02-0.1); White Blood Count 4.8 K/mm3 (4.5-10.0)
[2022-10-08 13:52] LABS: Erythrocyte Sedimentation Rate 23 mm/hr (0-20)
[2022-10-08] MEDS: FENTANYL 2,500MCG/NS250ML(*CRX 2,500 MCG/250 ML BAG IV CONT (14:56)
[2022-10-08] MEDS: dexmedeTOMIDine 400 MCG/100 ML 400 MCG/100 ML BAG 19.24 MCG IV CONT ×2 (15:12→19:19)
[2022-10-08] MEDS: AZITHROMYCIN 500 MG/NS 250 ML 500 MG/250 ML BAG 250 MG IVPB (20:15)
--- NOTE | 2022-10-08 20:48 | PC.NURSE ---
Pt forcing tube to left side of mouth. RT changed ETAD and attempted to suction patient. Suction tubing was changed due to not passing into ET tube, required loosening connection piece-patient became very agitated. Oxygenation and vitals stable but patient continues to kick legs and pull at restraints and hitting rails, shaking head. Despite attempts to reassure patient she remains agitated; Fentanyl increased.
[2022-10-08] MEDS: MONTELUKAST SODIUM 10 MG TABLET PO (21:00)
[2022-10-08] MEDS: cefTRIAXone 2 GM/NS 100 ML 2 GM/100 ML BAG IVPB (21:14)
[2022-10-09] VITALS (54 sets, daily range): BP systolic 76–127; BP diastolic 62–94; PULSE 68–118; RESP 14–23; TEMP 35.8–37.2; O2SAT 98–100
[2022-10-09] MEDS: dexmedeTOMIDine 400 MCG/100 ML 400 MCG/100 ML BAG 19.24 MCG IV CONT ×2 (00:36→05:48)
[2022-10-09] MEDS: ALBUTEROL SULFATE NEB 2.5 MG/3 ML INH INHALATION ×4 (02:33→21:16)
[2022-10-09] MEDS: IPRATROPIUM BR 0.02% INH SOLN 0.5 MG/2.5 ML VIAL INHALATION ×4 (02:33→21:16)
[2022-10-09 04:28] LABS: Hematocrit 28.3 % (37.0-47.0); Hemoglobin 8.9 g/dL (12.0-15.0); Mean Corpuscular HGB Conc 31.4 g/dl (32-36); Mean Corpuscular Hemoglobin 29.6 pg (26-34); Mean Platelet Volume 10.6 fl (7.4-10.4); Platelet Count Result 146 k/mm3 (150-375); Red Blood Count 3.01 M/mm3 (4.2-5.4); Red Cell Distribution Width 12.7 % (11.5-14.5); White Blood Count 5.9 K/mm3 (4.5-10.0)
[2022-10-09 04:37] LABS: Anion Gap 0 mmol/L (8-16); Blood Urea Nitrogen 27 mg/dL (7-17); Calcium 8.3 mg/dL (8.4-10.2); Carbon Dioxide 39 mmol/L (22-30); Chloride 90 mmol/L (98-107); Estimated CRCL calculation 85 ml/min; Estimated Glomerular Filt Rate > 60; Glucose 201 mg/dL (65-110); Magnesium 2.2 mg/dL (1.6-2.3); Potassium 4.4 mmol/L (3.4-5.0); Sodium 129 mmol/L (137-145)
[2022-10-09 05:07] LABS: Alveolar/Arterial O2 Gradient 45.9 mmHg; Base Excess ABG 9.1 mEq/l (+/-2.0); Carboxyhemoglobin 0.3 % THb (0-2.0); Fractional Inspired Oxygen 30 %; HCO3 ABG 34.2 mEq/l (22.0-26.0); Methemoglobin ABG 0.3 %THb (0-1.5); Oxygen Content ABG 14.4 %vol (16.0-22.0); Oxygen Saturation ABG 98.1 % (95.0-100.0); Oxyhemoglobin 96.5 % THb (90.0-100.0); PCO2 ABG 49.9 mmHg (35.0-45.0); PO2 ABG 109.4 mmHg (80.0-100.0); PO2 FiO2 Ratio Arterial Blood 3.65 %; Reduced Hemoglobin 2.9 %THb (0-5.0); Total Hemoglobin 10.5 g/dL (12.0-18.0); pH ABG 7.454 (7.350-7.450)
[2022-10-09 05:08] LABS: Arterial Blood Gas PEEP 5 cmH2O; Arterial Blood Gas Tidal Volume 400 ml; Arterial Blood Gas Vent Mode CMV; Arterial Blood Gas Ventilator rate 18 /MIN; Device VENTILATOR; Modified Allen's Test Pass; Site Drawn LEFT RADIAL
[2022-10-09] MEDS: PROPOFOL IV EMULSION 100 ML 1.36 MG IV CONT (05:49)
[2022-10-09] MEDS: CENTRAL LINE FLUSH 10 ML IV PUSH ×2 (06:02→20:48)
[2022-10-09 06:25] LABS: Triglycerides 134 mg/dL (<150)
--- NOTE | 2022-10-09 08:02 | WPDINTPN ---
Progress Note: A&P Assessment and Plan (1) Acute on chronic respiratory failure with hypoxia and hypercapnia: Code(s): J96.21 - Acute and chronic respiratory failure with hypoxia; J96.22 - Acute and chronic respiratory failure with hypercapnia Status: Acute Assessment and Plan: Acute on chronic Respiratory failure secondary to COPD exacerbation and questionable pneumonia. Patient has baseline severe COPD and diastolic heart failure -10/04: Patient intubated blood the outside hospital, placed on mechanical ventilation and transferred to [facility] ICU -Continue full mechanical ventilation support to prevent hypoxemia/hypercarbia and end organ damage. -Chest x-ray this morning: Severe emphysema, -weaning steroids -Continue bronchodilators -Continue current empiric antibiotics Rocephin, and azithromycin (10/04) -vancomycin discontinued -10/05: Blood cultures obtained and pending -sedated with fentanyl, propofol and Precedex. Will wean Precedex as he has not been helping her, -patient is very anxious which is restricting spontaneous breathing trials, will add Xanax scheduled, so we may be able to come down on the propofol and fentanyl (2) UTI (urinary tract infection): Qualifiers: Urinary tract infection type: acute cystitis Hematuria presence: without hematuria Qualified Code(s): N30.00 - Acute cystitis without hematuria Code(s): N39.0 - Urinary tract infection, site not specified Status: Acute Assessment and Plan: -10/04: Urine cultures growing Klebs aerogenes ( Enterobacter) -continue ceftriaxone (3) Heart failure with preserved ejection fraction: Qualifiers: Heart failure chronicity: unspecified Qualified Code(s): I50.30 - Unspecified diastolic (congestive) heart failure Code(s): I50.30 - Unspecified diastolic (congestive) heart failure Status: Acute Assessment and Plan: Echo 06/30/22 Summary ? 1. Complete two-dimensional, color flow and Doppler transthoracic echocardiogram is performed. ? 2. Left ventricular chamber dimension is normal. ? 3. Left ventricular systolic function is normal, estimated at 50-55%. ? 4. The left ventricular diastolic function is grade I diastolic dysfunction. ? 5. Right ventricular systolic function is normal. ? 6. There is mild aortic valve calcification. ? 7. The mitral valve annulus is mildly calcified. ? 8. The mitral valve has thickened leaflets. ? 9. There is trace mitral valve regurgitation. ? 10. There is mild tricuspid valve regurgitation. ? 11. There is mild aortic atherosclerosis. ? 12. Normal inferior vena cava with >50% collapse upon inspiration consistent with normal right atrial pressure, 3 mmHg. (4) Chronic obstructive pulmonary disease: Code(s): J44.9 - Chronic obstructive pulmonary disease, unspecified Status: Acute Assessment and Plan: See above (5) Pneumonia: Code(s): J18.9 - Pneumonia, unspecified organism Status: Acute Assessment and Plan: See above (6) History of pulmonary embolus (PE): Code(s): Z86.711 - Personal history of pulmonary embolism Status: Acute Assessment and Plan: Continue apixaban Plan DVT prophylaxis -apixaban Stress ulcer prophylaxis -PPI Nutrition -tolerating tube feeds Code Status - Full Code Total Critical Care Time - 33 minutes Due to a high probability of clinically significant, life threatening deterioration, the patient required my highest level of preparedness to intervene emergently and I personally spent this critical care time directly and personally managing the patient. This critical care time included obtaining a history; examining the patient; pulse oximetry; ordering and review of studies; arranging urgent treatment with development of a management plan; evaluation of patient's response to treatment; frequent reassessment; and discussions with other providers. It was exclusive of simi
[2022-10-09] MEDS: APIXABAN 5 MG TABLET PO ×2 (08:27→20:46)
[2022-10-09] MEDS: ALPRAZolam (*CRX) 0.5 MG TABLET PO ×2 (08:27→12:26)
[2022-10-09] MEDS: polyethylene glycoL 3350 17 GM POWD.PACK PO (08:28)
[2022-10-09] MEDS: DOCUSATE SODIUM LIQ 100 MG/10 ML UDC FEED TUBE (08:28)
[2022-10-09] MEDS: MINERAL OIL/WHITE PETROLATUM OINTMENT 1 APPLIC EACH EYE (08:28)
[2022-10-09] MEDS: PANTOPRAZOLE SODIUM IV 40 MG VIAL IV PUSH (08:28)
[2022-10-09] MEDS: methylPREDNISolone SOD SUCC 40 MG VIAL 20 MG IV PUSH ×2 (08:29→20:46)
[2022-10-09] MEDS: LACTULOSE 20 GM/30 ML UDC PO (08:35)
--- NOTE | 2022-10-09 10:44 | PCNFU ---
Nutrition Follow-Up Complete: Inadequate energy intake related to NPO as evidenced by mechanical vent, need for full tube feeding. Tolerate tube feeding at goal rate Meet estimated energy requirements Patient is progressing towards goal. We will continue current goal. Pt current nutrition is Vital AF 1.2 at 45 ml/hr Last recorded weight is 45.3 kg. Bowel Motility:No BM reported. Labs Reviewed:Glu 201, BUN 27, Cr 0.5,Na 129, Hct 28.3,Hgb 8.9 Meds Noted:Miralax, Colace, Lactulose, Rocephin,Protonix, Vancomycin, Precedex, Fentanyl, Propofol at 10 mcgs=72 kcals. Skin: WNL Additional Notes: Patient remains on mechanical vent and tube feedings of Vital AF 1.2 at 45 ml/hr and tolerating. Tube feedings providing 1188 kcals/74 gms protein/802 ml water. Propofol is an additional 72 kcals. Tube feedings are meeting caloric and protein needs at this time. Flush 30 ml q 4 hours. Agree with diet orders. Monitoring tolerance, labs, weights, plan of care Follow daily in ICU rounds. Reassess Wednesday and Wednesday per policy
[2022-10-09 12:29] LABS: Carbon Dioxide > 40 mmol/L (22-30); Chloride 89 mmol/L (98-107); Potassium 4.5 mmol/L (3.4-5.0); Sodium 133 mmol/L (137-145)
[2022-10-09 12:30] LABS: Blood Urea Nitrogen 37 mg/dL (7-17); Estimated CRCL calculation 75 ml/min; Estimated Glomerular Filt Rate > 60
[2022-10-09 12:31] LABS: Alanine Aminotransferase 21 U/L (6-35); Aspartate Amino Transferase 27 U/L (14-36); Bilirubin,Total 0.2 mg/dL (0.2-1.3); Calcium 8.4 mg/dL (8.4-10.2); Glucose 201 mg/dL (65-110); Magnesium 2.3 mg/dL (1.6-2.3); Phosphorus 3.8 mg/dL (2.5-4.5); Total Protein 5.8 g/dL (6.3-8.2)
[2022-10-09 12:32] LABS: Albumin Level 3.3 g/dL (3.5-5.1); Alkaline Phosphatase 59 U/L (38-126)
[2022-10-09 15:04] LABS: Mycoplasma IgM Antibody Titer 142 U/mL (<770)
--- NOTE | 2022-10-09 16:20 | PM.IMPN ---
Progress Note: A&P Assessment and Plan (1) Acute on chronic respiratory failure with hypoxia and hypercapnia: Code(s): J96.21 - Acute and chronic respiratory failure with hypoxia; J96.22 - Acute and chronic respiratory failure with hypercapnia Status: Acute Assessment and Plan: Acute on chronic Respiratory failure secondary to COPD exacerbation and questionable pneumonia. Patient has baseline severe COPD and diastolic heart failure -10/04: Patient intubated blood the outside hospital, placed on mechanical ventilation and transferred to [facility] ICU -Continue full mechanical ventilation support to prevent hypoxemia/hypercarbia and end organ damage. -Chest x-ray : Severe emphysema, -weaning steroids -Continue bronchodilators -Continue current empiric antibiotics Rocephin, and azithromycin (10/04) -vancomycin discontinued -10/05: Blood cultures obtained and pending 10/04: Urine culture growing Klebs aerogenes Patient was sedated with fentanyl propofol and Precedex. Sedation has been discontinued and planned for spontaneous breathing trial (2) UTI (urinary tract infection): Qualifiers: Urinary tract infection type: acute cystitis Hematuria presence: without hematuria Qualified Code(s): N30.00 - Acute cystitis without hematuria Code(s): N39.0 - Urinary tract infection, site not specified Status: Acute Assessment and Plan: -10/04: Urine cultures growing Klebs aerogenes ( Enterobacter) -continue ceftriaxone (3) Heart failure with preserved ejection fraction: Qualifiers: Heart failure chronicity: unspecified Qualified Code(s): I50.30 - Unspecified diastolic (congestive) heart failure Code(s): I50.30 - Unspecified diastolic (congestive) heart failure Status: Acute Assessment and Plan: Echo 06/30/22 Summary ? 1. Complete two-dimensional, color flow and Doppler transthoracic echocardiogram is performed. ? 2. Left ventricular chamber dimension is normal. ? 3. Left ventricular systolic function is normal, estimated at 50-55%. ? 4. The left ventricular diastolic function is grade I diastolic dysfunction. ? 5. Right ventricular systolic function is normal. ? 6. There is mild aortic valve calcification. ? 7. The mitral valve annulus is mildly calcified. ? 8. The mitral valve has thickened leaflets. ? 9. There is trace mitral valve regurgitation. ? 10. There is mild tricuspid valve regurgitation. ? 11. There is mild aortic atherosclerosis. ? 12. Normal inferior vena cava with >50% collapse upon inspiration consistent with normal right atrial pressure, 3 mmHg. (4) Chronic obstructive pulmonary disease: Code(s): J44.9 - Chronic obstructive pulmonary disease, unspecified Status: Acute Assessment and Plan: See above (5) Pneumonia: Code(s): J18.9 - Pneumonia, unspecified organism Status: Acute Assessment and Plan: See above (6) History of pulmonary embolus (PE): Code(s): Z86.711 - Personal history of pulmonary embolism Status: Acute Assessment and Plan: Continue apixaban Plan DVT prophylaxis -apixaban Stress ulcer prophylaxis -PPI Nutrition -tolerating tube feeds Code Status - Full Code Subjective Date/time seen: 10/09/22 16:20 Interval history: 57yo female smoker with severe COPD, chronic hypoxic and hypercapnic respiratory failure on 3 L nasal cannula and?AVAPS settings at nighttime, dCHF, DVT and PE in 2019, and HTN who was directly admitted to the ICU from [facility] in [place] with acute on chronic respiratory failure on 10/04/2022? Patient awake and alert review of system could not be completed due to endotracheal tube. Remains on mechanical ventilation. Delete Review of Systems Review of Systems: ROS unobtainable: Yes unobtainable due to endotracheal tube Exam Narrative: General: Pt is? cachectic old frail female on mechanical ventilation Lungs/Megha
[2022-10-09] MEDS: ALPRAZolam (*CRX) 0.5 MG TABLET 1 MG PO (17:28)
[2022-10-09] MEDS: PROPOFOL IV EMULSION 100 ML 8.15 MG IV CONT (19:51)
[2022-10-09] MEDS: cefTRIAXone 2 GM/NS 100 ML 2 GM/100 ML BAG IVPB (20:45)
[2022-10-09] MEDS: MONTELUKAST SODIUM 10 MG TABLET PO (20:47)
[2022-10-09] MEDS: FENTANYL 2,500MCG/NS250ML(*CRX 2,500 MCG/250 ML BAG 10 MCG IV CONT (21:12)
[2022-10-10] VITALS (41 sets, daily range): BP systolic 101–140; BP diastolic 75–91; PULSE 87–104; RESP 10–23; TEMP 36.6–37.6; O2SAT 92–100
[2022-10-10] MEDS: IPRATROPIUM BR 0.02% INH SOLN 0.5 MG/2.5 ML VIAL INHALATION ×4 (02:31→20:56)
[2022-10-10] MEDS: ALBUTEROL SULFATE NEB 2.5 MG/3 ML INH INHALATION ×4 (02:31→20:56)
[2022-10-10 04:25] LABS: Alveolar/Arterial O2 Gradient 42.6 mmHg; Base Excess ABG 10.3 mEq/l (+/-2.0); Carboxyhemoglobin 0.3 % THb (0-2.0); Fractional Inspired Oxygen 30 %; HCO3 ABG 35.1 mEq/l (22.0-26.0); Methemoglobin ABG 0.3 %THb (0-1.5); Oxygen Content ABG 15.7 %vol (16.0-22.0); Oxygen Saturation ABG 98.4 % (95.0-100.0); Oxyhemoglobin 96.9 % THb (90.0-100.0); PCO2 ABG 47.6 mmHg (35.0-45.0); PO2 ABG 115.4 mmHg (80.0-100.0); PO2 FiO2 Ratio Arterial Blood 3.85 %; Reduced Hemoglobin 2.5 %THb (0-5.0); Total Hemoglobin 11.4 g/dL (12.0-18.0); pH ABG 7.485 (7.350-7.450)
[2022-10-10 04:27] LABS: Arterial Blood Gas Vent Mode CMV; Arterial Blood Gas Ventilator rate 18 /MIN; Device VENTILATOR; Modified Allen's Test Pass; Site Drawn RIGHT RADIAL
[2022-10-10 04:28] LABS: Arterial Blood Gas PEEP 5 cmH2O; Arterial Blood Gas Tidal Volume 400 ml
[2022-10-10 04:29] LABS: Basophils Percent Auto 0.1 % (0.2-1.2); Eosinophils Percent Auto 0.2 % (0-4.4); Hematocrit 31.1 % (37.0-47.0); Hemoglobin 10.1 g/dL (12.0-15.0); Immature Granulocyte Absolute 0.03 K/mm3 (0.00-0.031); Immature Granulocyte Percent A 0.3 % (0-0.5); Lymphocytes Absolute Auto 1.32 K/mm3 (0.9-3.2); Lymphocytes Percent Auto 13.9 % (18.3-44.2); Mean Corpuscular HGB Conc 32.5 g/dl (32-36); Mean Corpuscular Hemoglobin 30.1 pg (26-34); Mean Corpuscular Volume 92.8 fl (80-100); Mean Platelet Volume 11.1 fl (7.4-10.4); Monocytes Absolute Auto 0.8 K/mm3 (0.1-0.6); Monocytes Percent Auto 8.3 % (2.6-8.5); Neutrophils Absolute Auto 7.3 K/mm3 (1.3-6.7); Neutrophils Percent Auto 77.2 % (45.5-73.1); Platelet Count Result 200 k/mm3 (150-375); Red Blood Count 3.35 M/mm3 (4.2-5.4); Red Cell Distribution Width 12.8 % (11.5-14.5); White Blood Count 9.5 K/mm3 (4.5-10.0)
[2022-10-10 04:38] LABS: Magnesium 2.2 mg/dL (1.6-2.3); Phosphorus 4.2 mg/dL (2.5-4.5)
[2022-10-10] MEDS: PROPOFOL IV EMULSION 100 ML 10.87 MG IV CONT (05:08)
[2022-10-10] MEDS: CENTRAL LINE FLUSH 10 ML IV PUSH ×3 (05:10→20:09)
[2022-10-10 05:54] LABS: Legionella pneumophila Ag Ur Not Detected (Not Detected)
[2022-10-10] MEDS: HYDROcodone/acetaminophen (*CRX) 5-325 MG TABLET 1 TAB PO ×3 (08:00→23:11)
[2022-10-10] MEDS: ALPRAZolam (*CRX) 0.5 MG TABLET 1 MG PO ×3 (08:00→20:07)
[2022-10-10] MEDS: PANTOPRAZOLE SODIUM IV 40 MG VIAL IV PUSH (08:01)
[2022-10-10] MEDS: polyethylene glycoL 3350 17 GM POWD.PACK PO (08:01)
[2022-10-10] MEDS: DOCUSATE SODIUM LIQ 100 MG/10 ML UDC FEED TUBE (08:02)
[2022-10-10] MEDS: methylPREDNISolone SOD SUCC 40 MG VIAL 20 MG IV PUSH ×2 (08:02→20:08)
[2022-10-10] MEDS: LACTULOSE 20 GM/30 ML UDC PO (08:02)
[2022-10-10] MEDS: MINERAL OIL/WHITE PETROLATUM OINTMENT 1 APPLIC EACH EYE (08:02)
[2022-10-10] MEDS: APIXABAN 5 MG TABLET PO ×2 (08:02→20:08)
--- NOTE | 2022-10-10 08:02 | WPDINTPN ---
Progress Note: A&P Assessment and Plan (1) Acute on chronic respiratory failure with hypoxia and hypercapnia: Code(s): J96.21 - Acute and chronic respiratory failure with hypoxia; J96.22 - Acute and chronic respiratory failure with hypercapnia Status: Acute Assessment and Plan: Acute on chronic Respiratory failure secondary to COPD exacerbation and questionable pneumonia. Patient has baseline severe COPD and diastolic heart failure -10/04: Patient intubated blood the outside hospital, placed on mechanical ventilation and transferred to [facility] ICU -Continue full mechanical ventilation support to prevent hypoxemia/hypercarbia and end organ damage. -Chest x-ray this morning: Severe emphysema, -DC steroids today -Continue bronchodilators -Continue current empiric antibiotics Rocephin, and azithromycin (10/04) -vancomycin discontinued -10/05: Blood cultures obtained and pending -sedated with fentanyl, propofol. Have asked the bedside RN to DC the propofol. -will switch Xanax to Q 8 hours. Will start [place] as patient has been taking opioids at home. -placed patient on SBT PSV 8/5, 30% FiO2. I am hopeful we can extubate her today (2) UTI (urinary tract infection): Qualifiers: Urinary tract infection type: acute cystitis Hematuria presence: without hematuria Qualified Code(s): N30.00 - Acute cystitis without hematuria Code(s): N39.0 - Urinary tract infection, site not specified Status: Acute Assessment and Plan: -10/04: Urine cultures growing Klebs aerogenes ( Enterobacter) -continue ceftriaxone (3) Heart failure with preserved ejection fraction: Qualifiers: Heart failure chronicity: unspecified Qualified Code(s): I50.30 - Unspecified diastolic (congestive) heart failure Code(s): I50.30 - Unspecified diastolic (congestive) heart failure Status: Acute Assessment and Plan: Echo 06/30/22 Summary ? 1. Complete two-dimensional, color flow and Doppler transthoracic echocardiogram is performed. ? 2. Left ventricular chamber dimension is normal. ? 3. Left ventricular systolic function is normal, estimated at 50-55%. ? 4. The left ventricular diastolic function is grade I diastolic dysfunction. ? 5. Right ventricular systolic function is normal. ? 6. There is mild aortic valve calcification. ? 7. The mitral valve annulus is mildly calcified. ? 8. The mitral valve has thickened leaflets. ? 9. There is trace mitral valve regurgitation. ? 10. There is mild tricuspid valve regurgitation. ? 11. There is mild aortic atherosclerosis. ? 12. Normal inferior vena cava with >50% collapse upon inspiration consistent with normal right atrial pressure, 3 mmHg. (4) Chronic obstructive pulmonary disease: Code(s): J44.9 - Chronic obstructive pulmonary disease, unspecified Status: Acute Assessment and Plan: See above (5) Pneumonia: Code(s): J18.9 - Pneumonia, unspecified organism Status: Acute Assessment and Plan: See above (6) History of pulmonary embolus (PE): Code(s): Z86.711 - Personal history of pulmonary embolism Status: Acute Assessment and Plan: Continue apixaban Plan DVT prophylaxis -apixaban Stress ulcer prophylaxis -PPI Nutrition -tolerating tube feeds, no bowel movements despite patient being on MiraLax, senna, lactulose Code Status - Full Code Total Critical Care Time - 33 minutes Due to a high probability of clinically significant, life threatening deterioration, the patient required my highest level of preparedness to intervene emergently and I personally spent this critical care time directly and personally managing the patient. This critical care time included obtaining a history; examining the patient; pulse oximetry; ordering and review of studies; arranging urgent treatment with development of a management plan; evaluation of patient's response to treatment; frequent reasses
[2022-10-10] MEDS: QUEtiapine FUMARATE 25 MG TABLET PO (08:54)
[2022-10-10 09:12] LABS: Alveolar/Arterial O2 Gradient 52.5 mmHg; Base Excess ABG 10.8 mEq/l (+/-2.0); Carboxyhemoglobin 0.3 % THb (0-2.0); Fractional Inspired Oxygen 30 %; HCO3 ABG 38.2 mEq/l (22.0-26.0); Methemoglobin ABG 0.4 %THb (0-1.5); Oxygen Content ABG 15.5 %vol (16.0-22.0); Oxygen Saturation ABG 95.8 % (95.0-100.0); Oxyhemoglobin 94.3 % THb (90.0-100.0); PO2 ABG 84.2 mmHg (80.0-100.0); PO2 FiO2 Ratio Arterial Blood 2.81 %; Total Hemoglobin 11.6 g/dL (12.0-18.0); pH ABG 7.382 (7.350-7.450)
[2022-10-10 09:13] LABS: Device VENTILATOR; Modified Allen's Test Pass; PCO2 ABG 65.7 mmHg (35.0-45.0); Site Drawn LEFT RADIAL
[2022-10-10 09:14] LABS: Arterial Blood Gas PEEP 5 cmH2O; Arterial Blood Gas Pressure Support 8 cmH2O; Arterial Blood Gas Vent Mode SPONTANEOUS
--- NOTE | 2022-10-10 13:17 | PM.IMPN ---
Progress Note: A&P Assessment and Plan (1) Acute on chronic respiratory failure with hypoxia and hypercapnia: Code(s): J96.21 - Acute and chronic respiratory failure with hypoxia; J96.22 - Acute and chronic respiratory failure with hypercapnia Status: Acute Assessment and Plan: Acute on chronic Respiratory failure secondary to COPD exacerbation and questionable pneumonia. Patient has baseline severe COPD and diastolic heart failure -10/04: Patient intubated blood the outside hospital, placed on mechanical ventilation and transferred to [facility] ICU -Continue full mechanical ventilation support to prevent hypoxemia/hypercarbia and end organ damage. -Chest x-ray : Severe emphysema, -weaning steroids -Continue bronchodilators -Continue current empiric antibiotics Rocephin, and azithromycin (10/04) -vancomycin discontinued -10/05: Blood cultures obtained and pending 10/04: Urine culture growing Klebs aerogenes Patient was sedated with fentanyl propofol and Precedex. Sedation has been discontinued and planned for spontaneous breathing trial 10/10/2022: Extubated to nasal (2) UTI (urinary tract infection): Qualifiers: Urinary tract infection type: acute cystitis Hematuria presence: without hematuria Qualified Code(s): N30.00 - Acute cystitis without hematuria Code(s): N39.0 - Urinary tract infection, site not specified Status: Acute Assessment and Plan: -10/04: Urine cultures growing Klebs aerogenes ( Enterobacter) -continue ceftriaxone (3) Heart failure with preserved ejection fraction: Qualifiers: Heart failure chronicity: unspecified Qualified Code(s): I50.30 - Unspecified diastolic (congestive) heart failure Code(s): I50.30 - Unspecified diastolic (congestive) heart failure Status: Acute Assessment and Plan: Echo 06/30/22 Summary ? 1. Complete two-dimensional, color flow and Doppler transthoracic echocardiogram is performed. ? 2. Left ventricular chamber dimension is normal. ? 3. Left ventricular systolic function is normal, estimated at 50-55%. ? 4. The left ventricular diastolic function is grade I diastolic dysfunction. ? 5. Right ventricular systolic function is normal. ? 6. There is mild aortic valve calcification. ? 7. The mitral valve annulus is mildly calcified. ? 8. The mitral valve has thickened leaflets. ? 9. There is trace mitral valve regurgitation. ? 10. There is mild tricuspid valve regurgitation. ? 11. There is mild aortic atherosclerosis. ? 12. Normal inferior vena cava with >50% collapse upon inspiration consistent with normal right atrial pressure, 3 mmHg. (4) Chronic obstructive pulmonary disease: Code(s): J44.9 - Chronic obstructive pulmonary disease, unspecified Status: Acute Assessment and Plan: See above (5) Pneumonia: Code(s): J18.9 - Pneumonia, unspecified organism Status: Acute Assessment and Plan: See above (6) History of pulmonary embolus (PE): Code(s): Z86.711 - Personal history of pulmonary embolism Status: Acute Assessment and Plan: Continue apixaban Plan DVT prophylaxis -apixaban Stress ulcer prophylaxis -PPI Nutrition -tolerating tube feeds Code Status - Full Code Subjective Date/time seen: 10/10/22 13:17 Interval history: 57yo female smoker with severe COPD, chronic hypoxic and hypercapnic respiratory failure on 3 L nasal cannula and?AVAPS settings at nighttime, dCHF, DVT and PE in 2019, and HTN who was directly admitted to the ICU from [facility] in [place] with acute on chronic respiratory failure on 10/04/2022? 10/10/2022: Extubated this a.m. on oxygen via nasal cannula. Feels weak. Denies shortness of breath. No chest pain Review of Systems Review of Systems: All systems reviewed & are unremarkable except as noted in HPI and below Exam Narrative: General: Pt is? cachectic old frail female on nasal
--- NOTE | 2022-10-10 14:34 | PCSTNOTE ---
Bedside swallowing evaluation completed. Patient coughed when given trials of thin liquid by cup and by straw. Vocal quality was clear. No signs of aspiration with moderately thickened liquids by cup, pureed consistency food by spoon, and solid consistency food by hand (small piece of sathya cracker coated in applesauce for moisture). Patient educated on compensatory strategy of chin tuck, able to return demonstrate with 100 percent accuracy. Please note that silent aspiration cannot be ruled out at bedside. Recommendations: minced moist diet and moderately thickened liquids (level 3). No speech therapy recommended at this time. Thank you for the referral of this patient.
--- NOTE | 2022-10-10 14:42 | PCSTNOTE ---
Bedside swallowing evaluation completed. Patient was in bed in ICU, positioned upright. Nasogastric tube in place in left nostril. Extubated from mechanical ventilation yesterday. Patient was given trials of thin liquids, moderately thickened liquids, pureed food, and solid food. Signs of aspiration observed with thin liquids and moderately thickened liquids, including coughing and breathy vocal quality. Recommendation: minced moist diet with moderately thickened liquids. Swallowing precautions posted in medical chart. No further speech therapy is recommended at this time. Thank you for the referral of this patient. [ End ]
[2022-10-10] MEDS: cefTRIAXone 2 GM/NS 100 ML 2 GM/100 ML BAG IVPB (20:08)
[2022-10-10] MEDS: MONTELUKAST SODIUM 10 MG TABLET PO (20:08)
[2022-10-11] VITALS (18 sets, daily range): BP systolic 118–165; BP diastolic 68–99; PULSE 74–113; RESP 14–22; TEMP 35.8–37.2; O2SAT 95–100
[2022-10-11] MEDS: IPRATROPIUM BR 0.02% INH SOLN 0.5 MG/2.5 ML VIAL INHALATION ×4 (02:20→20:05)
[2022-10-11] MEDS: ALBUTEROL SULFATE NEB 2.5 MG/3 ML INH INHALATION ×4 (02:20→20:06)
[2022-10-11] MEDS: ALPRAZolam (*CRX) 0.5 MG TABLET 1 MG PO ×3 (04:06→22:02)
[2022-10-11] MEDS: CENTRAL LINE FLUSH 10 ML IV PUSH ×3 (04:08→19:33)
[2022-10-11 04:16] LABS: Basophils Percent Auto 0.1 % (0.2-1.2); Eosinophils Percent Auto 0.2 % (0-4.4); Hematocrit 32.6 % (37.0-47.0); Hemoglobin 10.3 g/dL (12.0-15.0); Immature Granulocyte Absolute 0.05 K/mm3 (0.00-0.031); Immature Granulocyte Percent A 0.4 % (0-0.5); Lymphocytes Absolute Auto 1.39 K/mm3 (0.9-3.2); Lymphocytes Percent Auto 9.9 % (18.3-44.2); Mean Corpuscular HGB Conc 31.6 g/dl (32-36); Mean Corpuscular Hemoglobin 29.6 pg (26-34); Mean Corpuscular Volume 93.7 fl (80-100); Mean Platelet Volume 10.3 fl (7.4-10.4); Monocytes Absolute Auto 1.2 K/mm3 (0.1-0.6); Monocytes Percent Auto 8.4 % (2.6-8.5); Neutrophils Absolute Auto 11.3 K/mm3 (1.3-6.7); Platelet Count Result 236 k/mm3 (150-375); Red Blood Count 3.48 M/mm3 (4.2-5.4); Red Cell Distribution Width 12.9 % (11.5-14.5)
[2022-10-11 04:30] LABS: Magnesium 2.1 mg/dL (1.6-2.3); Phosphorus 4.4 mg/dL (2.5-4.5)
[2022-10-11] MEDS: HYDROcodone/acetaminophen (*CRX) 5-325 MG TABLET 1 TAB PO ×3 (06:15→19:32)
--- NOTE | 2022-10-11 08:35 | WPDINTPN ---
Progress Note: A&P Assessment and Plan (1) Acute on chronic respiratory failure with hypoxia and hypercapnia: Code(s): J96.21 - Acute and chronic respiratory failure with hypoxia; J96.22 - Acute and chronic respiratory failure with hypercapnia Status: Acute Assessment and Plan: Acute on chronic Respiratory failure secondary to COPD exacerbation and questionable pneumonia. Patient has baseline severe COPD and diastolic heart failure -10/04: Patient intubated blood the outside hospital, placed on mechanical ventilation and transferred to [facility] ICU -10/10: extubated -off Solu-Medrol -Continue bronchodilators -Continue current empiric antibiotics Rocephin, and azithromycin (10/04) continue for 7 days, stop date is today -vancomycin discontinued -10/05: Blood cultures negative x2 -10/04: MRSA culture negative -10/05: Sputum cultures negative -continue p.r.n. Xanax and [place] which she takes at home (2) UTI (urinary tract infection): Qualifiers: Urinary tract infection type: acute cystitis Hematuria presence: without hematuria Qualified Code(s): N30.00 - Acute cystitis without hematuria Code(s): N39.0 - Urinary tract infection, site not specified Status: Acute Assessment and Plan: -10/04: Urine cultures growing Klebs aerogenes ( Enterobacter) -continue ceftriaxone (3) Heart failure with preserved ejection fraction: Qualifiers: Heart failure chronicity: unspecified Qualified Code(s): I50.30 - Unspecified diastolic (congestive) heart failure Code(s): I50.30 - Unspecified diastolic (congestive) heart failure Status: Acute Assessment and Plan: Echo 06/30/22 Summary ? 1. Complete two-dimensional, color flow and Doppler transthoracic echocardiogram is performed. ? 2. Left ventricular chamber dimension is normal. ? 3. Left ventricular systolic function is normal, estimated at 50-55%. ? 4. The left ventricular diastolic function is grade I diastolic dysfunction. ? 5. Right ventricular systolic function is normal. ? 6. There is mild aortic valve calcification. ? 7. The mitral valve annulus is mildly calcified. ? 8. The mitral valve has thickened leaflets. ? 9. There is trace mitral valve regurgitation. ? 10. There is mild tricuspid valve regurgitation. ? 11. There is mild aortic atherosclerosis. ? 12. Normal inferior vena cava with >50% collapse upon inspiration consistent with normal right atrial pressure, 3 mmHg. (4) Chronic obstructive pulmonary disease: Code(s): J44.9 - Chronic obstructive pulmonary disease, unspecified Status: Acute Assessment and Plan: Continue bronchodilators and supplemental oxygen -have ordered BiPAP p.r.n. (5) Pneumonia: Code(s): J18.9 - Pneumonia, unspecified organism Status: Acute Assessment and Plan: See above (6) History of pulmonary embolus (PE): Code(s): Z86.711 - Personal history of pulmonary embolism Status: Acute Assessment and Plan: Continue apixaban Plan DVT prophylaxis -apixaban Stress ulcer prophylaxis -PPI Nutrition -patient did pass her swallow test, currently on thickened liquids, minced and moist diet. 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 Continue MiraLax, senna, lactulose Code Status - Full Code Total Critical Care Time - 32 minutes Patient may transfer out of the ICU if okay with hospitalist Due to a high probability of clinically significant, life threatening deterioration, the patient required my highest level of preparedness to intervene emergently and I personally spent this critical care time directly and personally managing the patient. This critical care time included obtaining a history; examining the patient; pulse oximetry; ordering and review of studies; arranging urgent treatment with development of a management plan; evaluation of patient's response to treatment;
[2022-10-11] MEDS: PANTOPRAZOLE SODIUM IV 40 MG VIAL IV PUSH (10:16)
[2022-10-11] MEDS: APIXABAN 5 MG TABLET PO ×2 (10:16→19:31)
--- NOTE | 2022-10-11 10:25 | PM.IMPN ---
Progress Note: A&P Assessment and Plan (1) Acute on chronic respiratory failure with hypoxia and hypercapnia: Code(s): J96.21 - Acute and chronic respiratory failure with hypoxia; J96.22 - Acute and chronic respiratory failure with hypercapnia Status: Acute Assessment and Plan: Acute on chronic Respiratory failure secondary to COPD exacerbation and questionable pneumonia. Patient has baseline severe COPD and diastolic heart failure -10/04: Patient intubated blood the outside hospital, placed on mechanical ventilation and transferred to [facility] ICU -Continue full mechanical ventilation support to prevent hypoxemia/hypercarbia and end organ damage. -Chest x-ray : Severe emphysema, -weaning steroids -Continue bronchodilators -Continue current empiric antibiotics Rocephin, and azithromycin (10/04) -vancomycin discontinued -10/05: Blood cultures obtained and pending 10/04: Urine culture growing Klebs aerogenes Patient was sedated with fentanyl propofol and Precedex. Sedation has been discontinued and planned for spontaneous breathing trial 10/10/2022: Extubated to nasal 10/11/2022: On 2 L nasal cannula. Will increase activity. Monitor (2) UTI (urinary tract infection): Qualifiers: Urinary tract infection type: acute cystitis Hematuria presence: without hematuria Qualified Code(s): N30.00 - Acute cystitis without hematuria Code(s): N39.0 - Urinary tract infection, site not specified Status: Acute Assessment and Plan: -10/04: Urine cultures growing Klebs aerogenes ( Enterobacter) -continue ceftriaxone 2 ceftriaxone concludes today with total 7 days course (3) Heart failure with preserved ejection fraction: Qualifiers: Heart failure chronicity: unspecified Qualified Code(s): I50.30 - Unspecified diastolic (congestive) heart failure Code(s): I50.30 - Unspecified diastolic (congestive) heart failure Status: Acute Assessment and Plan: Echo 06/30/22 Summary ? 1. Complete two-dimensional, color flow and Doppler transthoracic echocardiogram is performed. ? 2. Left ventricular chamber dimension is normal. ? 3. Left ventricular systolic function is normal, estimated at 50-55%. ? 4. The left ventricular diastolic function is grade I diastolic dysfunction. ? 5. Right ventricular systolic function is normal. ? 6. There is mild aortic valve calcification. ? 7. The mitral valve annulus is mildly calcified. ? 8. The mitral valve has thickened leaflets. ? 9. There is trace mitral valve regurgitation. ? 10. There is mild tricuspid valve regurgitation. ? 11. There is mild aortic atherosclerosis. ? 12. Normal inferior vena cava with >50% collapse upon inspiration consistent with normal right atrial pressure, 3 mmHg. (4) Chronic obstructive pulmonary disease: Code(s): J44.9 - Chronic obstructive pulmonary disease, unspecified Status: Acute Assessment and Plan: See above (5) Pneumonia: Code(s): J18.9 - Pneumonia, unspecified organism Status: Acute Assessment and Plan: See above (6) History of pulmonary embolus (PE): Code(s): Z86.711 - Personal history of pulmonary embolism Status: Acute Assessment and Plan: Continue apixaban Plan DVT prophylaxis -apixaban Stress ulcer prophylaxis -PPI Nutrition -on a regular diet Code Status - Full Code Subjective Date/time seen: 10/11/22 10:25 Interval history: 57yo female smoker with severe COPD, chronic hypoxic and hypercapnic respiratory failure on 3 L nasal cannula and?AVAPS settings at nighttime, dCHF, DVT and PE in 2019, and HTN who was directly admitted to the ICU from [facility] in [place] with acute on chronic respiratory failure on 10/04/2022? 10/10/2022: Extubated this a.m. on oxygen via nasal cannula. Feels weak. Denies shortness of breath. No chest pain 10/11/2022: Used BiPAP last night. Remains on 2 L nasal cannula
--- NOTE | 2022-10-11 11:02 | PC.NURSE ---
This patient, Sharifa Mosquera, was transferred to [facility] on 10/11/22 at 1102. Personal belongings sent with patient. Report given to Christy CRUZ. Appropriate documentation sent with patient.
--- NOTE | 2022-10-11 11:13 | PC.NURSE ---
This patient, Sharifa Mosquera, was received from ICU-2 on 10/11/22 at 1102. Patient/family oriented to unit policies and routines
--- NOTE | 2022-10-11 15:19 | PCPTNOTE ---
On 10/11/22, the student, [Sophy Ceron], provided care and completed [facility] documentation on this patient. I have reviewed the student's documentation and agree with the findings.
[2022-10-11] MEDS: MONTELUKAST SODIUM 10 MG TABLET PO (19:31)
[2022-10-12] VITALS (20 sets, daily range): BP systolic 127–140; BP diastolic 77–88; PULSE 86–116; RESP 20–22; TEMP 36.5–36.8; O2SAT 98–100
[2022-10-12] MEDS: HYDROcodone/acetaminophen (*CRX) 5-325 MG TABLET 1 TAB PO ×2 (01:31→08:30)
[2022-10-12] MEDS: ALBUTEROL SULFATE NEB 2.5 MG/3 ML INH INHALATION ×4 (01:42→20:13)
[2022-10-12] MEDS: IPRATROPIUM BR 0.02% INH SOLN 0.5 MG/2.5 ML VIAL INHALATION ×4 (01:42→20:13)
[2022-10-12 05:48] LABS: Eosinophils Absolute Auto 0.1 K/mm3 (0-0.3); Eosinophils Percent Auto 1.3 % (0-4.4); Hematocrit 33.2 % (37.0-47.0); Hemoglobin 10.4 g/dL (12.0-15.0); Immature Granulocyte Absolute 0.03 K/mm3 (0.00-0.031); Immature Granulocyte Percent A 0.3 % (0-0.5); Lymphocytes Absolute Auto 1.66 K/mm3 (0.9-3.2); Lymphocytes Percent Auto 15.2 % (18.3-44.2); Mean Corpuscular HGB Conc 31.3 g/dl (32-36); Mean Corpuscular Hemoglobin 29.2 pg (26-34); Mean Corpuscular Volume 93.3 fl (80-100); Mean Platelet Volume 10.2 fl (7.4-10.4); Monocytes Absolute Auto 1.2 K/mm3 (0.1-0.6); Monocytes Percent Auto 10.9 % (2.6-8.5); Neutrophils Absolute Auto 7.9 K/mm3 (1.3-6.7); Neutrophils Percent Auto 72.3 % (45.5-73.1); Platelet Count Result 266 k/mm3 (150-375); Red Blood Count 3.56 M/mm3 (4.2-5.4); Red Cell Distribution Width 12.6 % (11.5-14.5); White Blood Count 10.9 K/mm3 (4.5-10.0)
[2022-10-12] MEDS: ALPRAZolam (*CRX) 0.5 MG TABLET 1 MG PO ×2 (05:57→14:26)
[2022-10-12] MEDS: CENTRAL LINE FLUSH 10 ML IV PUSH ×3 (05:57→20:26)
[2022-10-12 06:01] LABS: Magnesium 2.3 mg/dL (1.6-2.3)
[2022-10-12] MEDS: APIXABAN 5 MG TABLET PO ×2 (08:30→20:26)
[2022-10-12] MEDS: PANTOPRAZOLE SODIUM IV 40 MG VIAL IV PUSH (08:31)
[2022-10-12 08:55] LABS: Alanine Aminotransferase 29 U/L (6-35); Albumin Level 3.4 g/dL (3.5-5.1); Alkaline Phosphatase 54 U/L (38-126); Aspartate Amino Transferase 21 U/L (14-36); Bilirubin,Total 0.3 mg/dL (0.2-1.3); Blood Urea Nitrogen 5 mg/dL (7-17); Calcium 8.2 mg/dL (8.4-10.2); Carbon Dioxide > 40 mmol/L (22-30); Chloride 94 mmol/L (98-107); Estimated CRCL calculation 108 ml/min; Estimated Glomerular Filt Rate > 60; Glucose 117 mg/dL (65-110); Potassium 4.2 mmol/L (3.4-5.0); Sodium 134 mmol/L (137-145)
[2022-10-12] MEDS: FLUTICASONE/SALMETEROL 115-21 MCG INHALER 1 PUFF 2 PUFF INHALATION ×2 (09:23→20:13)
[2022-10-12] MEDS: UMECLIDINIUM BROMIDE 62.5 MCG ELLIPTA 1 PUFF INHALATION (09:29)
--- NOTE | 2022-10-12 11:37 | PCNFU ---
Nutrition Follow-Up Complete: Inadequate energy intake related to NPO as evidenced by mechanical vent, need for full tube feeding. New Dx: Swallowing difficulties related to post mechanical ventilation as evidenced by need for minced & moist level 5, moderately thick liquids Tolerate tube feeding at goal rate - Goal met. Meet estimated energy requirements - Meeting goal with PO intake Goal: Pt current nutrition is Minced & moist level 5, moderately thick liquids. Intakes 90-100% since advancement. Ensure Compact BID for additional 220 kcals and 9 g protein each. Nutrition recommendation: Continue with current care plan and supplements. Agree with orders Last recorded weight is 42.1 kg. Bowel Motility: +1 BM 10/11/22 Labs Reviewed: Hgb 10.4, Hct 33.2, Alb 3.4, Na 134, BUN 5, Cre 0.3 Meds Noted: Protonix, lactulose, Miralax, colace Skin: Mepilex to coccyx Additional Notes: Extubated and moved out of ICU yesterday. Diet advanced per speech eval. Agree with current orders. Monitoring labs, weights, plan of care, intakes, supplement tolerance Follow up every 5 days
--- NOTE | 2022-10-12 11:58 | PM.IMPN ---
Progress Note: A&P Assessment and Plan (1) Acute on chronic respiratory failure with hypoxia and hypercapnia: Code(s): J96.21 - Acute and chronic respiratory failure with hypoxia; J96.22 - Acute and chronic respiratory failure with hypercapnia Status: Acute Assessment and Plan: Acute on chronic Respiratory failure secondary to COPD exacerbation and questionable pneumonia. Patient has baseline severe COPD and diastolic heart failure -10/04: Patient intubated blood the outside hospital, placed on mechanical ventilation and transferred to [facility] ICU -Continue full mechanical ventilation support to prevent hypoxemia/hypercarbia and end organ damage. -Chest x-ray : Severe emphysema, -weaning steroids -Continue bronchodilators -Continue current empiric antibiotics Rocephin, and azithromycin (10/04) -vancomycin discontinued -10/05: Blood cultures obtained and pending 10/04: Urine culture growing Klebs aerogenes Patient was sedated with fentanyl propofol and Precedex. Sedation has been discontinued and planned for spontaneous breathing trial 10/10/2022: Extubated to nasal 10/11/2022: On 2 L nasal cannula. Will increase activity. Monitor (2) UTI (urinary tract infection): Qualifiers: Urinary tract infection type: acute cystitis Hematuria presence: without hematuria Qualified Code(s): N30.00 - Acute cystitis without hematuria Code(s): N39.0 - Urinary tract infection, site not specified Status: Acute Assessment and Plan: -10/04: Urine cultures growing Klebs aerogenes ( Enterobacter) -continue ceftriaxone 2 ceftriaxone concludes today with total 7 days course (3) Heart failure with preserved ejection fraction: Qualifiers: Heart failure chronicity: unspecified Qualified Code(s): I50.30 - Unspecified diastolic (congestive) heart failure Code(s): I50.30 - Unspecified diastolic (congestive) heart failure Status: Acute Assessment and Plan: Echo 06/30/22 Summary ? 1. Complete two-dimensional, color flow and Doppler transthoracic echocardiogram is performed. ? 2. Left ventricular chamber dimension is normal. ? 3. Left ventricular systolic function is normal, estimated at 50-55%. ? 4. The left ventricular diastolic function is grade I diastolic dysfunction. ? 5. Right ventricular systolic function is normal. ? 6. There is mild aortic valve calcification. ? 7. The mitral valve annulus is mildly calcified. ? 8. The mitral valve has thickened leaflets. ? 9. There is trace mitral valve regurgitation. ? 10. There is mild tricuspid valve regurgitation. ? 11. There is mild aortic atherosclerosis. ? 12. Normal inferior vena cava with >50% collapse upon inspiration consistent with normal right atrial pressure, 3 mmHg. (4) Chronic obstructive pulmonary disease: Code(s): J44.9 - Chronic obstructive pulmonary disease, unspecified Status: Acute Assessment and Plan: See above (5) Pneumonia: Code(s): J18.9 - Pneumonia, unspecified organism Status: Acute Assessment and Plan: See above (6) History of pulmonary embolus (PE): Code(s): Z86.711 - Personal history of pulmonary embolism Status: Acute Assessment and Plan: Continue apixaban Plan Chronic pain. Resume home medication dVT prophylaxis -apixaban Stress ulcer prophylaxis -PPI Nutrition -on a regular diet Code Status - Full Code Subjective Date/time seen: 10/12/22 11:58 Interval history: 57yo female smoker with severe COPD, chronic hypoxic and hypercapnic respiratory failure on 3 L nasal cannula and?AVAPS settings at nighttime, dCHF, DVT and PE in 2019, and HTN who was directly admitted to the ICU from [facility] in [place] with acute on chronic respiratory failure on 10/04/2022? 10/10/2022: Extubated this a.m. on oxygen via nasal cannula. Feels weak. Denies shortness of breath. No chest pain 10/11/2022: Used BiPAP la
[2022-10-12] MEDS: FLUTICASONE PROPIONATE 0.05% NA SPR 16 GM BTL (*BKC) 2 SPRAY NASAL (13:36)
[2022-10-12] MEDS: VENLAFAXINE HCL XR 75 MG CAP.ER.24H 150 MG PO (13:38)
[2022-10-12] MEDS: busPIRone HCL 5 MG TABLET 15 MG PO ×2 (13:38→20:26)
[2022-10-12] MEDS: GABAPENTIN 300 MG CAPSULE 600 MG PO ×2 (13:38→17:50)
[2022-10-12] MEDS: HYDROcodone/acetaminophen (*CRX) 7.5-325 MG TABLET 1 TAB PO ×2 (13:39→23:50)
[2022-10-12] MEDS: METOPROLOL SUCCINATE EXT REL 25 MG TABCR PO (14:27)
[2022-10-12] MEDS: MONTELUKAST SODIUM 10 MG TABLET PO (20:26)
[2022-10-13] VITALS (18 sets, daily range): BP systolic 122–144; BP diastolic 74–89; PULSE 80–104; RESP 20–22; TEMP 36.3–37; O2SAT 95–100
[2022-10-13] MEDS: CENTRAL LINE FLUSH 10 ML IV PUSH ×3 (05:14→23:00)
[2022-10-13 05:27] LABS: Basophils Percent Auto 0.1 % (0.2-1.2); Eosinophils Absolute Auto 0.3 K/mm3 (0-0.3); Eosinophils Percent Auto 3.5 % (0-4.4); Hematocrit 31.8 % (37.0-47.0); Immature Granulocyte Absolute 0.02 K/mm3 (0.00-0.031); Immature Granulocyte Percent A 0.2 % (0-0.5); Lymphocytes Absolute Auto 1.89 K/mm3 (0.9-3.2); Lymphocytes Percent Auto 20.7 % (18.3-44.2); Mean Corpuscular HGB Conc 31.4 g/dl (32-36); Mean Corpuscular Volume 95.5 fl (80-100); Mean Platelet Volume 9.9 fl (7.4-10.4); Monocytes Absolute Auto 1.5 K/mm3 (0.1-0.6); Monocytes Percent Auto 16.6 % (2.6-8.5); Neutrophils Absolute Auto 5.4 K/mm3 (1.3-6.7); Neutrophils Percent Auto 58.9 % (45.5-73.1); Platelet Count Result 273 k/mm3 (150-375); Red Blood Count 3.33 M/mm3 (4.2-5.4); Red Cell Distribution Width 12.8 % (11.5-14.5); White Blood Count 9.1 K/mm3 (4.5-10.0)
[2022-10-13 05:41] LABS: Magnesium 2.2 mg/dL (1.6-2.3); Phosphorus 4.2 mg/dL (2.5-4.5)
[2022-10-13] MEDS: HYDROcodone/acetaminophen (*CRX) 7.5-325 MG TABLET 1 TAB PO ×3 (06:43→20:22)
[2022-10-13] MEDS: ALBUTEROL SULFATE NEB 2.5 MG/3 ML INH INHALATION ×3 (07:38→20:56)
[2022-10-13] MEDS: IPRATROPIUM BR 0.02% INH SOLN 0.5 MG/2.5 ML VIAL INHALATION ×3 (07:38→20:56)
[2022-10-13] MEDS: FLUTICASONE/SALMETEROL 115-21 MCG INHALER 1 PUFF 2 PUFF INHALATION ×2 (07:38→20:57)
[2022-10-13] MEDS: UMECLIDINIUM BROMIDE 62.5 MCG ELLIPTA 1 PUFF INHALATION (07:39)
[2022-10-13] MEDS: busPIRone HCL 5 MG TABLET 15 MG PO ×2 (09:40→22:00)
[2022-10-13] MEDS: APIXABAN 5 MG TABLET PO ×2 (09:40→20:22)
[2022-10-13] MEDS: GABAPENTIN 300 MG CAPSULE 600 MG PO ×3 (09:41→17:41)
[2022-10-13] MEDS: FLUTICASONE PROPIONATE 0.05% NA SPR 16 GM BTL (*BKC) 2 SPRAY NASAL (09:41)
[2022-10-13] MEDS: VENLAFAXINE HCL XR 75 MG CAP.ER.24H 150 MG PO (09:42)
[2022-10-13] MEDS: PANTOPRAZOLE SODIUM IV 40 MG VIAL IV PUSH (09:42)
[2022-10-13] MEDS: METOPROLOL SUCCINATE EXT REL 25 MG TABCR PO (09:42)
--- NOTE | 2022-10-13 11:35 | PCPTNOTE ---
Patient refused treatment this session due to patient not feeling well. Patient asked if PT can check back later.
--- NOTE | 2022-10-13 16:07 | WPDPN ---
Progress Note: A&P Assessment and Plan (1) Acute on chronic respiratory failure with hypoxia and hypercapnia: Code(s): J96.21 - Acute and chronic respiratory failure with hypoxia; J96.22 - Acute and chronic respiratory failure with hypercapnia Status: Acute Assessment and Plan: Acute on chronic Respiratory failure secondary to COPD exacerbation and questionable pneumonia. Patient has baseline severe COPD and diastolic heart failure -10/04: Patient intubated blood the outside hospital, placed on mechanical ventilation and transferred to [facility] ICU -Continue full mechanical ventilation support to prevent hypoxemia/hypercarbia and end organ damage. -Chest x-ray : Severe emphysema, -weaning steroids -Continue bronchodilators -Continue current empiric antibiotics Rocephin, and azithromycin (10/04) -vancomycin discontinued -10/05: Blood cultures obtained and pending 10/04: Urine culture growing Klebs aerogenes Patient was sedated with fentanyl propofol and Precedex. Sedation has been discontinued and planned for spontaneous breathing trial 10/10/2022: Extubated to nasal 10/11/2022: On 2 L nasal cannula. Will increase activity. Monitor 10/13/2022: interval history: Feels well. she is still weak however patient was able to participate in physical therapy and Walked with therapy earlier today. Mild cough. Shortness of breath with exertion. Eating well, states slept well last night, patient clinical symptoms are improved patient will benefit going to rehab. (2) UTI (urinary tract infection): Qualifiers: Urinary tract infection type: acute cystitis Hematuria presence: without hematuria Qualified Code(s): N30.00 - Acute cystitis without hematuria Code(s): N39.0 - Urinary tract infection, site not specified Status: Acute Assessment and Plan: -10/04: Urine cultures growing Klebs aerogenes ( Enterobacter) -continue ceftriaxone 2 ceftriaxone concludes today with total 7 days course (3) Heart failure with preserved ejection fraction: Qualifiers: Heart failure chronicity: unspecified Qualified Code(s): I50.30 - Unspecified diastolic (congestive) heart failure Code(s): I50.30 - Unspecified diastolic (congestive) heart failure Status: Acute Assessment and Plan: Echo 06/30/22 Summary ? 1. Complete two-dimensional, color flow and Doppler transthoracic echocardiogram is performed. ? 2. Left ventricular chamber dimension is normal. ? 3. Left ventricular systolic function is normal, estimated at 50-55%. ? 4. The left ventricular diastolic function is grade I diastolic dysfunction. ? 5. Right ventricular systolic function is normal. ? 6. There is mild aortic valve calcification. ? 7. The mitral valve annulus is mildly calcified. ? 8. The mitral valve has thickened leaflets. ? 9. There is trace mitral valve regurgitation. ? 10. There is mild tricuspid valve regurgitation. ? 11. There is mild aortic atherosclerosis. ? 12. Normal inferior vena cava with >50% collapse upon inspiration consistent with normal right atrial pressure, 3 mmHg. (4) Chronic obstructive pulmonary disease: Code(s): J44.9 - Chronic obstructive pulmonary disease, unspecified Status: Acute Assessment and Plan: See above (5) Pneumonia: Code(s): J18.9 - Pneumonia, unspecified organism Status: Acute Assessment and Plan: See above (6) History of pulmonary embolus (PE): Code(s): Z86.711 - Personal history of pulmonary embolism Status: Acute Assessment and Plan: Continue apixaban Plan Chronic pain. Resume home medication dVT prophylaxis -apixaban Stress ulcer prophylaxis -PPI Nutrition -on a regular diet Code Status - Full Code Subjective Date/time seen: 10/13/22 16:07 Interval history: 57yo female smoker with severe COPD, chronic hypoxic and hypercapnic respiratory failure on 3 L nasal cannula and?AVAPS settings a
[2022-10-13] MEDS: MONTELUKAST SODIUM 10 MG TABLET PO (20:22)
[2022-10-13] MEDS: CYCLOBENZAPRINE HCL 10 MG TABLET PO (21:58)
[2022-10-13] MEDS: hydrOXYzine pamoate 25 MG CAPSULE 50 MG PO (21:58)
[2022-10-13] MEDS: SIMETHICONE 125 MG CHEW TAB PO (23:10)
[2022-10-14] VITALS (20 sets, daily range): BP systolic 109–114; BP diastolic 58–74; PULSE 79–104; RESP 18–20; TEMP 36.2–36.6; O2SAT 94–100
[2022-10-14] MEDS: IPRATROPIUM BR 0.02% INH SOLN 0.5 MG/2.5 ML VIAL INHALATION ×4 (01:45→20:47)
[2022-10-14] MEDS: ALBUTEROL SULFATE NEB 2.5 MG/3 ML INH INHALATION ×4 (01:45→20:47)
[2022-10-14] MEDS: HYDROcodone/acetaminophen (*CRX) 7.5-325 MG TABLET 1 TAB PO ×3 (05:25→20:04)
[2022-10-14] MEDS: CENTRAL LINE FLUSH 10 ML IV PUSH ×2 (05:27→13:24)
[2022-10-14 05:37] LABS: Basophils Percent Auto 0.2 % (0.2-1.2); Eosinophils Absolute Auto 0.4 K/mm3 (0-0.3); Eosinophils Percent Auto 4.3 % (0-4.4); Hematocrit 31.4 % (37.0-47.0); Hemoglobin 9.3 g/dL (12.0-15.0); Immature Granulocyte Absolute 0.03 K/mm3 (0.00-0.031); Immature Granulocyte Percent A 0.4 % (0-0.5); Lymphocytes Absolute Auto 1.98 K/mm3 (0.9-3.2); Lymphocytes Percent Auto 23.8 % (18.3-44.2); Mean Corpuscular HGB Conc 29.6 g/dl (32-36); Mean Corpuscular Volume 97.8 fl (80-100); Mean Platelet Volume 9.9 fl (7.4-10.4); Monocytes Absolute Auto 1.2 K/mm3 (0.1-0.6); Monocytes Percent Auto 14.5 % (2.6-8.5); Neutrophils Absolute Auto 4.7 K/mm3 (1.3-6.7); Neutrophils Percent Auto 56.8 % (45.5-73.1); Platelet Count Result 210 k/mm3 (150-375); Red Blood Count 3.21 M/mm3 (4.2-5.4); Red Cell Distribution Width 12.6 % (11.5-14.5); White Blood Count 8.3 K/mm3 (4.5-10.0)
[2022-10-14 05:47] LABS: Magnesium 2.2 mg/dL (1.6-2.3); Phosphorus 4.4 mg/dL (2.5-4.5)
[2022-10-14 06:00] LABS: Hypochromasia 1+ (NORMAL); Platelet Estimate Adequate (Adequate); Schistocytes None Seen (NORMAL)
[2022-10-14] MEDS: UMECLIDINIUM BROMIDE 62.5 MCG ELLIPTA 1 PUFF INHALATION (08:39)
[2022-10-14] MEDS: FLUTICASONE/SALMETEROL 115-21 MCG INHALER 1 PUFF 2 PUFF INHALATION ×2 (08:39→20:47)
[2022-10-14] MEDS: FLUTICASONE PROPIONATE 0.05% NA SPR 16 GM BTL (*BKC) 2 SPRAY NASAL (09:10)
[2022-10-14] MEDS: LACTULOSE 20 GM/30 ML UDC PO (09:11)
[2022-10-14] MEDS: VENLAFAXINE HCL XR 75 MG CAP.ER.24H 150 MG PO (09:11)
[2022-10-14] MEDS: PANTOPRAZOLE SODIUM IV 40 MG VIAL IV PUSH (09:11)
[2022-10-14] MEDS: APIXABAN 5 MG TABLET PO ×2 (09:11→20:05)
[2022-10-14] MEDS: GABAPENTIN 300 MG CAPSULE 600 MG PO ×3 (09:11→16:23)
[2022-10-14] MEDS: busPIRone HCL 5 MG TABLET 15 MG PO ×2 (09:11→20:05)
[2022-10-14] MEDS: METOPROLOL SUCCINATE EXT REL 25 MG TABCR PO (09:12)
[2022-10-14] MEDS: ONDANSETRON INJ 4 MG/2 ML VIAL IV PUSH ×2 (09:48→22:31)
--- NOTE | 2022-10-14 14:52 | WPDPN ---
Progress Note: A&P Assessment and Plan (1) Acute on chronic respiratory failure with hypoxia and hypercapnia: Code(s): J96.21 - Acute and chronic respiratory failure with hypoxia; J96.22 - Acute and chronic respiratory failure with hypercapnia Status: Acute Assessment and Plan: Acute on chronic Respiratory failure secondary to COPD exacerbation and questionable pneumonia. Patient has baseline severe COPD and diastolic heart failure -10/04: Patient intubated blood the outside hospital, placed on mechanical ventilation and transferred to [facility] ICU -Continue full mechanical ventilation support to prevent hypoxemia/hypercarbia and end organ damage. -Chest x-ray : Severe emphysema, -weaning steroids -Continue bronchodilators -Continue current empiric antibiotics Rocephin, and azithromycin (10/04) -vancomycin discontinued -10/05: Blood cultures obtained and pending 10/04: Urine culture growing Klebs aerogenes Patient was sedated with fentanyl propofol and Precedex. Sedation has been discontinued and planned for spontaneous breathing trial 10/10/2022: Extubated to nasal 10/11/2022: On 2 L nasal cannula. Will increase activity. Monitor 10/14/2022: interval history: Feels well. she is still weak however patient was able to participate in physical therapy and Walked with therapy earlier yesterday, today stats does not feel well and feels tired, Mild cough. Shortness of breath with exertion. Eating well, states did not sleep well last night, patient clinical symptoms are improving, plan is transfer patient to rehab, patient will benefit going to rehab. (2) UTI (urinary tract infection): Qualifiers: Urinary tract infection type: acute cystitis Hematuria presence: without hematuria Qualified Code(s): N30.00 - Acute cystitis without hematuria Code(s): N39.0 - Urinary tract infection, site not specified Status: Acute Assessment and Plan: -10/04: Urine cultures growing Klebs aerogenes ( Enterobacter) -continue ceftriaxone 2 ceftriaxone concludes today with total 7 days course (3) Heart failure with preserved ejection fraction: Qualifiers: Heart failure chronicity: unspecified Qualified Code(s): I50.30 - Unspecified diastolic (congestive) heart failure Code(s): I50.30 - Unspecified diastolic (congestive) heart failure Status: Acute Assessment and Plan: Echo 06/30/22 Summary ? 1. Complete two-dimensional, color flow and Doppler transthoracic echocardiogram is performed. ? 2. Left ventricular chamber dimension is normal. ? 3. Left ventricular systolic function is normal, estimated at 50-55%. ? 4. The left ventricular diastolic function is grade I diastolic dysfunction. ? 5. Right ventricular systolic function is normal. ? 6. There is mild aortic valve calcification. ? 7. The mitral valve annulus is mildly calcified. ? 8. The mitral valve has thickened leaflets. ? 9. There is trace mitral valve regurgitation. ? 10. There is mild tricuspid valve regurgitation. ? 11. There is mild aortic atherosclerosis. ? 12. Normal inferior vena cava with >50% collapse upon inspiration consistent with normal right atrial pressure, 3 mmHg. (4) Chronic obstructive pulmonary disease: Code(s): J44.9 - Chronic obstructive pulmonary disease, unspecified Status: Acute Assessment and Plan: See above (5) Pneumonia: Code(s): J18.9 - Pneumonia, unspecified organism Status: Acute Assessment and Plan: See above (6) History of pulmonary embolus (PE): Code(s): Z86.711 - Personal history of pulmonary embolism Status: Acute Assessment and Plan: Continue apixaban Plan Chronic pain. 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
--- NOTE | 2022-10-14 16:56 | PCSTNOTE ---
Please refer to the Bedside Swallow Evaluation in the EMR. Please note, silent aspiration cannot be ruled out at bedside.
[2022-10-14] MEDS: MONTELUKAST SODIUM 10 MG TABLET PO (20:05)
[2022-10-14 21:33] LABS: Glucose Point of Care 153 mg/dl (65-105)
[2022-10-15] VITALS (38 sets, daily range): BP systolic 54–134; BP diastolic 44–86; PULSE 85–115; RESP 13–28; TEMP 36.1–37.8; O2SAT 92–100
[2022-10-15] MEDS: CYCLOBENZAPRINE HCL 10 MG TABLET PO (01:34)
[2022-10-15] MEDS: HYDROcodone/acetaminophen (*CRX) 7.5-325 MG TABLET 1 TAB PO ×2 (01:34→08:20)
[2022-10-15] MEDS: SIMETHICONE 125 MG CHEW TAB PO (01:34)
[2022-10-15] MEDS: IPRATROPIUM BR 0.02% INH SOLN 0.5 MG/2.5 ML VIAL INHALATION ×4 (02:26→21:24)
[2022-10-15] MEDS: ALBUTEROL SULFATE NEB 2.5 MG/3 ML INH INHALATION ×2 (02:26→07:43)
[2022-10-15 05:38] LABS: Hematocrit 29.3 % (37.0-47.0); Hemoglobin 8.7 g/dL (12.0-15.0); Mean Corpuscular HGB Conc 29.7 g/dl (32-36); Mean Corpuscular Hemoglobin 29.6 pg (26-34); Mean Corpuscular Volume 99.7 fl (80-100); Mean Platelet Volume 9.5 fl (7.4-10.4); Platelet Count Result 255 k/mm3 (150-375); Red Blood Count 2.94 M/mm3 (4.2-5.4); Red Cell Distribution Width 12.6 % (11.5-14.5); White Blood Count 11.5 K/mm3 (4.5-10.0)
[2022-10-15 06:01] LABS: Blood Urea Nitrogen 12 mg/dL (7-17); Calcium 7.9 mg/dL (8.4-10.2); Carbon Dioxide > 40 mmol/L (22-30); Chloride 83 mmol/L (98-107); Estimated CRCL calculation 90 ml/min; Estimated Glomerular Filt Rate > 60; Glucose 141 mg/dL (65-110); Magnesium 2.2 mg/dL (1.6-2.3); Potassium 4.6 mmol/L (3.4-5.0); Sodium 132 mmol/L (137-145)
[2022-10-15] MEDS: UMECLIDINIUM BROMIDE 62.5 MCG ELLIPTA 1 PUFF INHALATION (07:43)
[2022-10-15] MEDS: FLUTICASONE/SALMETEROL 115-21 MCG INHALER 1 PUFF 2 PUFF INHALATION (07:43)
[2022-10-15] MEDS: hydrOXYzine pamoate 25 MG CAPSULE 50 MG PO (07:59)
[2022-10-15] MEDS: GABAPENTIN 300 MG CAPSULE 600 MG PO ×2 (08:01→14:14)
[2022-10-15] MEDS: APIXABAN 5 MG TABLET PO ×2 (08:01→20:48)
[2022-10-15] MEDS: FLUTICASONE PROPIONATE 0.05% NA SPR 16 GM BTL (*BKC) 2 SPRAY NASAL (08:02)
[2022-10-15] MEDS: PANTOPRAZOLE SODIUM IV 40 MG VIAL IV PUSH (08:02)
[2022-10-15] MEDS: VENLAFAXINE HCL XR 75 MG CAP.ER.24H 150 MG PO (08:02)
[2022-10-15] MEDS: CENTRAL LINE FLUSH 10 ML IV PUSH ×3 (08:02→20:49)
[2022-10-15] MEDS: busPIRone HCL 5 MG TABLET 15 MG PO ×2 (08:02→20:48)
[2022-10-15] MEDS: LACTULOSE 20 GM/30 ML UDC PO (08:02)
[2022-10-15] MEDS: METOPROLOL SUCCINATE EXT REL 25 MG TABCR PO (08:08)
--- NOTE | 2022-10-15 10:51 | PCNFU ---
Nutrition Follow-Up Complete: Inadequate energy intake related to NPO as evidenced by mechanical vent, need for full tube feeding. Goal: Meet estimated energy requirements Patient is progressing towards goal. Pt current nutrition is Regular diet with Moderately Thick liquids, Level 3. Last recorded weight is 44.6 kg. Bowel Motility:+BM reported 10/12 Labs Reviewed:Glu 141, Cr 0.4,Na 132, Hct 29.3,Hgb 8.7 Meds Noted:Atrovent, Protonix Skin: WNL Additional Notes:Patient had bedside swallow on 10/14-diet order was recommended for regular consistencies. Plans for MBS to determine need for consistency changes. Patient has been consuming 100% of meals with ensure compact BID. Breakfast was not eaten this morning as nursing reporting patient was anxious. Agree with diet orders. Monitoring tolerance, labs, weights, plan of care every 5 days.
[2022-10-15] MEDS: OLANZapine 10 MG INJ VIAL 2.5 MG IM (10:53)
--- NOTE | 2022-10-15 11:49 | PCPTNOTE ---
Attempted to see patient for PT, however patient not feeling well and very anxious. Patient agreed to trying therapy, patient sat edge of bed and reported feeling nauseous and does not feel she can do therapy. Patient laid herself back down and declined to participate in anymore therapy. RN aware.
--- NOTE | 2022-10-15 12:46 | PCSTNOTE ---
MBS attempted around 12:30 however patient is asleep and unable to participate. Will try again in the morning.
--- NOTE | 2022-10-15 13:32 | WPDPN ---
Progress Note: A&P Assessment and Plan (1) Acute on chronic respiratory failure with hypoxia and hypercapnia: Code(s): J96.21 - Acute and chronic respiratory failure with hypoxia; J96.22 - Acute and chronic respiratory failure with hypercapnia Status: Acute Assessment and Plan: Acute on chronic Respiratory failure secondary to COPD exacerbation and questionable pneumonia. Patient has baseline severe COPD and diastolic heart failure -10/04: Patient intubated blood the outside hospital, placed on mechanical ventilation and transferred to [facility] ICU -Continue full mechanical ventilation support to prevent hypoxemia/hypercarbia and end organ damage. -Chest x-ray : Severe emphysema, -weaning steroids -Continue bronchodilators -Continue current empiric antibiotics Rocephin, and azithromycin (10/04) -vancomycin discontinued -10/05: Blood cultures obtained and pending 10/04: Urine culture growing Klebs aerogenes Patient was sedated with fentanyl propofol and Precedex. Sedation has been discontinued and planned for spontaneous breathing trial 10/10/2022: Extubated to nasal 10/11/2022: On 2 L nasal cannula. Will increase activity. Monitor 10/15/2022: interval history: Feels well. she is still weak however patient was able to participate in physical therapy and Walked with therapy earlier on 10/13, on 10/14 stated does not feel well and feels tired, Mild cough. Shortness of breath with exertion. today after receving duo neb patient became anxious and patient was given ativan without relief, and unable to participate in PT not Eating well, states did not sleep well last night, will switch albuterol to xopenex , patient clinical symptoms are improving, plan is transfer patient to rehab, patient will benefit going to rehab. (2) UTI (urinary tract infection): Qualifiers: Urinary tract infection type: acute cystitis Hematuria presence: without hematuria Qualified Code(s): N30.00 - Acute cystitis without hematuria Code(s): N39.0 - Urinary tract infection, site not specified Status: Acute Assessment and Plan: -10/04: Urine cultures growing Klebs aerogenes ( Enterobacter) -continue ceftriaxone 2 ceftriaxone concludes today with total 7 days course (3) Heart failure with preserved ejection fraction: Qualifiers: Heart failure chronicity: unspecified Qualified Code(s): I50.30 - Unspecified diastolic (congestive) heart failure Code(s): I50.30 - Unspecified diastolic (congestive) heart failure Status: Acute Assessment and Plan: Echo 06/30/22 Summary ? 1. Complete two-dimensional, color flow and Doppler transthoracic echocardiogram is performed. ? 2. Left ventricular chamber dimension is normal. ? 3. Left ventricular systolic function is normal, estimated at 50-55%. ? 4. The left ventricular diastolic function is grade I diastolic dysfunction. ? 5. Right ventricular systolic function is normal. ? 6. There is mild aortic valve calcification. ? 7. The mitral valve annulus is mildly calcified. ? 8. The mitral valve has thickened leaflets. ? 9. There is trace mitral valve regurgitation. ? 10. There is mild tricuspid valve regurgitation. ? 11. There is mild aortic atherosclerosis. ? 12. Normal inferior vena cava with >50% collapse upon inspiration consistent with normal right atrial pressure, 3 mmHg. (4) Chronic obstructive pulmonary disease: Code(s): J44.9 - Chronic obstructive pulmonary disease, unspecified Status: Acute Assessment and Plan: See above (5) Pneumonia: Code(s): J18.9 - Pneumonia, unspecified organism Status: Acute Assessment and Plan: See above (6) History of pulmonary embolus (PE): Code(s): Z86.711 - Personal history of pulmonary embolism Status: Acute Assessment and Plan: Continue apixaban Plan Chronic pain. Resume home medication dVT prophylaxis -apixaban Stress ulcer prophylaxis
[2022-10-15] MEDS: LEVALBUTEROL NEB 1.25 MG/3 ML 0.63 MG INHALATION ×2 (14:01→21:24)
[2022-10-15] MEDS: WATER, STERILE FOR INJECTION 10 ML VIAL XX (14:12)
[2022-10-15] MEDS: SODIUM CHLORIDE 0.9% IV 250 ML 999 ML IV CONT (14:13)
[2022-10-15] MEDS: SODIUM CHLORIDE 0.9% IV 1,000 ML 999 ML IV CONT ×2 (15:02→19:45)
[2022-10-15 15:24] LABS: Oxygen Content ABG 9.4 %vol (16.0-22.0)
[2022-10-15 15:37] LABS: Alveolar/Arterial O2 Gradient 37.2 mmHg; Base Excess ABG 9.7 mEq/l (+/-2.0); Fractional Inspired Oxygen 30 %; HCO3 ABG 43.5 mEq/l (22.0-26.0); PO2 FiO2 Ratio Arterial Blood 1.24 %; Total Hemoglobin 10.8 g/dL (12.0-18.0)
[2022-10-15 15:45] LABS: pH ABG 7.182 (7.350-7.450)
[2022-10-15 15:46] LABS: Oxygen Saturation ABG 53.7 % (95.0-100.0); PCO2 ABG 118.6 mmHg (35.0-45.0); PO2 ABG 37.3 mmHg (80.0-100.0)
[2022-10-15 15:47] LABS: Device NON-INVASIVE VENT; Modified Allen's Test Pass; Non-Invasive Expiratory Pressure 6 CMH2O; Non-Invasive Inspiratory Pressure 12 CMH2O; Non-Invasive Vent Rate 12 /MIN; Oxyhemoglobin 65.5 % THb (90.0-100.0); Site Drawn RIGHT RADIAL
[2022-10-15] MEDS: ALTEPLASE 2 MG VIAL (CATHFLO) IV PUSH (15:47)
[2022-10-15 16:05] LABS: Alveolar/Arterial O2 Gradient 528.1 mmHg; Base Excess ABG 12.8 mEq/l (+/-2.0); Fractional Inspired Oxygen 100 %; HCO3 ABG 45.4 mEq/l (22.0-26.0); HCO3 VBG 45.4 mEq/l (24.0-30.0); Oxygen Content ABG 11.8 %vol (16.0-22.0); PO2 ABG 52.6 mmHg (80.0-100.0); PO2 FiO2 Ratio Arterial Blood 0.53 %; PO2 VBG 52.6 mmHg (35.0-45.0); Total Hemoglobin 10.4 g/dL (12.0-18.0)
[2022-10-15 16:06] LABS: pH ABG 7.153 (7.350-7.450)
[2022-10-15 16:07] LABS: PCO2 ABG 132.3 mmHg (35.0-45.0); pH VBG 7.153 (7.300-7.400)
[2022-10-15 16:08] LABS: Device NON-INVASIVE VENT; Oxyhemoglobin 80.3 % THb (90.0-100.0); PCO2 VBG 132.3 mmHg (42.0-48.0); Site Drawn ARTLINE
[2022-10-15 16:09] LABS: Non-Invasive Expiratory Pressure 6 CMH2O; Non-Invasive Inspiratory Pressure 12 CMH2O; Non-Invasive Vent Rate 12 /MIN
[2022-10-15] MEDS: NALOXONE HCL 0.4 MG/ML VIAL IV PUSH (16:45)
[2022-10-15] MEDS: LACTATED RINGERS 1,000 ML 100 ML IV CONT (16:55)
[2022-10-15 17:55] LABS: Alveolar/Arterial O2 Gradient 228.1 mmHg; Base Excess ABG 16.7 mEq/l (+/-2.0); Carboxyhemoglobin 0.1 % THb (0-2.0); Fractional Inspired Oxygen 60 %; HCO3 ABG 49.1 mEq/l (22.0-26.0); Methemoglobin ABG 0.4 %THb (0-1.5); Oxygen Content ABG 12.1 %vol (16.0-22.0); PO2 ABG 53.6 mmHg (80.0-100.0); PO2 FiO2 Ratio Arterial Blood 0.89 %; Reduced Hemoglobin 16.9 %THb (0-5.0); Total Hemoglobin 10.4 g/dL (12.0-18.0)
[2022-10-15 17:57] LABS: pH ABG 7.186 (7.350-7.450)
[2022-10-15 17:58] LABS: Oxygen Saturation ABG 75.4 % (95.0-100.0); PCO2 ABG 132.8 mmHg (35.0-45.0)
[2022-10-15 17:59] LABS: Device NON-INVASIVE VENT; Non-Invasive Expiratory Pressure 6 CMH2O; Non-Invasive Inspiratory Pressure 14 CMH2O; Non-Invasive Vent Rate 20 /MIN; Oxyhemoglobin 82.6 % THb (90.0-100.0); Site Drawn LEFT RADIAL
[2022-10-15 18:44] LABS: Alveolar/Arterial O2 Gradient 100.3 mmHg; Base Excess ABG 17.3 mEq/l (+/-2.0); Carboxyhemoglobin 0.3 % THb (0-2.0); Fractional Inspired Oxygen 40 %; Methemoglobin ABG 0.5 %THb (0-1.5); Oxygen Content ABG 11.2 %vol (16.0-22.0); Reduced Hemoglobin 21.7 %THb (0-5.0); Total Hemoglobin 10.3 g/dL (12.0-18.0)
[2022-10-15] MEDS: NOREPINEPHRINE 8 MG/D5W 250 ML 8 MG/250 ML BAG 9.38 MG IV CONT (18:50)
[2022-10-15 18:51] LABS: PCO2 ABG 122.6 mmHg (35.0-45.0); PO2 ABG 43.9 mmHg (80.0-100.0)
[2022-10-15 18:52] LABS: Oxygen Saturation ABG 65.7 % (95.0-100.0); Oxyhemoglobin 77.5 % THb (90.0-100.0)
[2022-10-15 18:53] LABS: Device NON-INVASIVE VENT; Site Drawn LEFT FEMORAL
[2022-10-15 18:54] LABS: Non-Invasive Expiratory Pressure 6 CMH2O; Non-Invasive Inspiratory Pressure 14 CMH2O; Non-Invasive Vent Rate 12 /MIN
[2022-10-15] MEDS: MIDAZOLAM 100MG/NS 100ML(*CRX) 100 MG/100 ML BAG IV CONT (19:21)
[2022-10-15] MEDS: FENTANYL 2,500MCG/NS250ML(*CRX 2,500 MCG/250 ML BAG IV CONT (19:22)
[2022-10-15] MEDS: RAPID SEQUENCE INTUBATION KIT 1 EACH (19:25)
[2022-10-15] MEDS: SUCCINYLCHOLINE CHLORIDE 20 MG/ML 10 ML VIAL 75 MG IV PUSH (19:25)
[2022-10-15] MEDS: ETOMIDATE 20 MG/10 ML AMPUL 15 MG IV PUSH (19:25)
--- NOTE | 2022-10-15 19:27 | WPDPROCEDUR ---
Procedures Intubation Intubation Date: 10/15/22 Intubation Time: 19:10 Consent: Implied consent; patient too obtunded to give informed consent. Sedative: etomidate Mg given: 15 Paralytic: succinylcholine Mg given: 75 Laryngoscope: fiber optic video scope Assist device used: fiber optic device ET tube size: 7 Tube secured depth (cm): 27 Tube secured location: lips Tube placement confirmation: visualized tube passing through cords, equal breath sounds bilaterally, no breath sounds over epigastrium and confirmation by capnometry Patient tolerated procedure: well Intubation complications: none Additional comments: Patient was preoxygenated with BiPAP at 100% FiO2. Etomidate and succinylcholine were given for RSI. She was intubated quickly, easily, and atraumatically on 1st attempt with a 7.0 ET tube using GlideScope. ET tube placement was confirmed with direct visualization of the tube passing through the cords, fogging of the ET tube, auscultation of lung sounds bilaterally, and no breath sounds heard over the epigastrium. Tube was secured initially to a depth of 23 cm at the lip however bedside x-ray showed the tip of the tube nearly 8 cm syed and that was advanced to 27 cm at the lip. Patient tolerated the procedure well without complications. Vent settings and management deferred to air crew officer.
--- NOTE | 2022-10-15 19:33 | P.PNCROSS_ITS ---
Event Note Event Note Event Note: S: Initial call from the patient's nurse on to examine the patient given increased confusion and lethargy. She had several BiPAP changes throughout the day with increasing pCO2. Decision was made to transfer the patient to the ICU for intubation. During transfer it was noted that the patient had hydrocodone on her person and it is presumed that was brought to her today as a cousin dropped off some belongings to her. With previous hospitalizations, the patient has self-medicated with her prescription narcotics and benzodiazepines. Narcan 0.4 mg IV was given with almost immediate improvement. As she was now more awake it was decided to keep her on the BiPAP to see if her respiratory status would improve following Narcan. Several hours later she became more lethargic and a repeat ABG showed no improvement best decision was made to reintubate the patient. O: On initial exam the patient was on BiPAP and was somnolent but arousable. She had difficulties staying awake however and was not able to answer questions. Following administration of Narcan she was alert and oriented and a bit argumentative. Her respiratory status seemed to improve as she was more awake. Prior to do and she was once again somnolent and she would only arouse with noxious stimuli for brief periods of time. She is cachectic and chronically ill. Lung sounds are significantly diminished throughout. Heart was regular rate and rhythm. Diffuse muscle atrophy. Peripheral pulses intact. A: Acute on chronic hypoxic and hypercapnic respiratory failure. May very well due to narcotic ingestion as Narcan did initially work as per HPI however several hours thereafter she once again became somnolent and confused. P: Re-intubation. Vent settings and management deferred to deployment technician. A total of 45 minutes critical care time was spent in attention of this patient exclusive of procedures.
[2022-10-15] MEDS: PIPERACILLIN/TAZOBACTAM SOD 4.5 GM in SODIUM CHLORIDE 0.9% IV 100 ML 200 ML IVPB (20:46)
[2022-10-15] MEDS: MINERAL OIL/WHITE PETROLATUM OINTMENT 1 APPLIC EACH EYE (20:47)
[2022-10-15] MEDS: MONTELUKAST SODIUM 10 MG TABLET PO (20:49)
[2022-10-15 21:35] LABS: Alveolar/Arterial O2 Gradient 428.4 mmHg; Base Excess ABG 11.7 mEq/l (+/-2.0); Carboxyhemoglobin 0.3 % THb (0-2.0); Fractional Inspired Oxygen 100 %; Methemoglobin ABG 0.5 %THb (0-1.5); Oxygen Content ABG 14.4 %vol (16.0-22.0); Oxygen Saturation ABG 99.3 % (95.0-100.0); Oxyhemoglobin 97.7 % THb (90.0-100.0); PO2 ABG 206.4 mmHg (80.0-100.0); PO2 FiO2 Ratio Arterial Blood 2.06 %; Reduced Hemoglobin 1.5 %THb (0-5.0); Total Hemoglobin 10.1 g/dL (12.0-18.0); pH ABG 7.327 (7.350-7.450)
[2022-10-15 21:36] LABS: Device VENTILATOR; PCO2 ABG 78.2 mmHg (35.0-45.0); Site Drawn LEFT FEMORAL
[2022-10-15 21:38] LABS: Arterial Blood Gas PEEP 5 cmH2O; Arterial Blood Gas Tidal Volume 400 ml; Arterial Blood Gas Vent Mode CMV; Arterial Blood Gas Ventilator rate 20 /MIN
[2022-10-15] MEDS: PROPOFOL IV EMULSION 100 ML 1.34 MG IV CONT (23:06)
[2022-10-16] VITALS (53 sets, daily range): BP systolic 86–146; BP diastolic 57–95; PULSE 81–116; RESP 13–25; TEMP 37.4–38.4; O2SAT 90–100; BMI 16.7
[2022-10-16] MEDS: ACETAMINOPHEN 325 MG TABLET 650 MG PO ×2 (00:12→09:32)
[2022-10-16 00:45] LABS: Glucose Point of Care 100 mg/dl (65-105)
[2022-10-16] MEDS: LEVALBUTEROL NEB 1.25 MG/3 ML 0.63 MG INHALATION ×4 (02:02→20:00)
[2022-10-16] MEDS: IPRATROPIUM BR 0.02% INH SOLN 0.5 MG/2.5 ML VIAL INHALATION ×4 (02:02→20:00)
[2022-10-16] MEDS: PIPERACILLIN/TAZOBACTAM SOD 4.5 GM in SODIUM CHLORIDE 0.9% IV 100 ML 200 ML IVPB ×4 (03:40→20:01)
[2022-10-16] MEDS: LACTATED RINGERS 1,000 ML 100 ML IV CONT ×2 (05:00→16:09)
[2022-10-16] MEDS: CENTRAL LINE FLUSH 10 ML IV PUSH ×3 (05:00→20:02)
[2022-10-16 05:50] LABS: Hematocrit 26.8 % (37.0-47.0); Hemoglobin 8.2 g/dL (12.0-15.0); Mean Corpuscular HGB Conc 30.6 g/dl (32-36); Mean Corpuscular Hemoglobin 29.9 pg (26-34); Mean Corpuscular Volume 97.8 fl (80-100); Platelet Count Result 250 k/mm3 (150-375); Red Blood Count 2.74 M/mm3 (4.2-5.4); Red Cell Distribution Width 12.8 % (11.5-14.5); White Blood Count 24.4 K/mm3 (4.5-10.0)
[2022-10-16 06:09] LABS: Alveolar/Arterial O2 Gradient 86.5 mmHg; Base Excess ABG 13.5 mEq/l (+/-2.0); Carboxyhemoglobin 0.3 % THb (0-2.0); Fractional Inspired Oxygen 30 %; HCO3 ABG 41.6 mEq/l (22.0-26.0); Methemoglobin ABG 0.3 %THb (0-1.5); Oxygen Content ABG 9.9 %vol (16.0-22.0); PO2 FiO2 Ratio Arterial Blood 1.23 %; Reduced Hemoglobin 29.5 %THb (0-5.0); Total Hemoglobin 10.1 g/dL (12.0-18.0); pH ABG 7.351 (7.350-7.450)
[2022-10-16 06:10] LABS: PCO2 ABG 76.9 mmHg (35.0-45.0)
[2022-10-16 06:11] LABS: Oxygen Saturation ABG 64.7 % (95.0-100.0)
[2022-10-16 06:12] LABS: Device VENTILATOR; Modified Allen's Test Unable to perform; Oxyhemoglobin 69.9 % THb (90.0-100.0); Site Drawn LEFT RADIAL
[2022-10-16 06:14] LABS: Arterial Blood Gas PEEP 5 cmH2O; Arterial Blood Gas Tidal Volume 400 ml; Arterial Blood Gas Vent Mode CMV; Arterial Blood Gas Ventilator rate 20 /MIN
[2022-10-16 06:20] LABS: Alanine Aminotransferase 21 U/L (6-35); Albumin Level 2.7 g/dL (3.5-5.1); Alkaline Phosphatase 50 U/L (38-126); Aspartate Amino Transferase 27 U/L (14-36); Bilirubin,Total 0.5 mg/dL (0.2-1.3); Blood Urea Nitrogen 19 mg/dL (7-17); Calcium 7.6 mg/dL (8.4-10.2); Carbon Dioxide > 40 mmol/L (22-30); Chloride 86 mmol/L (98-107); Estimated CRCL calculation 95 ml/min; Estimated Glomerular Filt Rate > 60; Glucose 96 mg/dL (65-110); Magnesium 1.9 mg/dL (1.6-2.3); Phosphorus 2.2 mg/dL (2.5-4.5); Potassium 3.8 mmol/L (3.4-5.0); Sodium 131 mmol/L (137-145); Triglycerides 117 mg/dL (<150)
--- NOTE | 2022-10-16 08:04 | PCSTNOTE ---
Modified Barium Swallow study order discontinued due to entering ICU. Please re-order when appropriate.
--- NOTE | 2022-10-16 08:25 | PCOTNOTE ---
Pt. D/C from therapy services at this time, due to medical status. Reorder therapy evaluation when pt. able to participate.
[2022-10-16] MEDS: VENLAFAXINE HCL XR 75 MG CAP.ER.24H 150 MG PO (08:40)
[2022-10-16] MEDS: APIXABAN 5 MG TABLET PO ×2 (08:40→20:01)
[2022-10-16] MEDS: PANTOPRAZOLE SODIUM IV 40 MG VIAL IV PUSH (08:41)
[2022-10-16] MEDS: FLUTICASONE PROPIONATE 0.05% NA SPR 16 GM BTL (*BKC) 2 SPRAY NASAL (08:41)
[2022-10-16] MEDS: MINERAL OIL/WHITE PETROLATUM OINTMENT 1 APPLIC EACH EYE ×2 (08:41→20:02)
[2022-10-16] MEDS: POTASSIUM PHOS,M-BASIC-D-BASIC 15 MMOL in SODIUM CHLORIDE 0.9% IV 250 ML 63.75 MMOL IVPB (09:05)
--- NOTE | 2022-10-16 09:08 | WPDINTPN ---
Progress Note: A&P Assessment and Plan (1) Acute on chronic respiratory failure with hypoxia and hypercapnia: Code(s): J96.21 - Acute and chronic respiratory failure with hypoxia; J96.22 - Acute and chronic respiratory failure with hypercapnia Status: Acute Assessment and Plan: Acute on chronic Respiratory failure secondary to COPD exacerbation and questionable pneumonia. Patient has baseline severe COPD and diastolic heart failure -10/04: Patient intubated blood the outside hospital, placed on mechanical ventilation and transferred to [facility] ICU -10/10: extubated -10/05: Blood cultures negative x2 -10/04: MRSA culture negative -10/05: Sputum cultures negative -completed course of Solu-Medrol, Rocephin, and azithromycin 10/15 -reintubated. ABG reviewed. Continue current ventilator settings Chest x-ray Extensive right basilar pneumonia, unchanged. Underlying severe COPD with left upper lobe linear scarring. Support tubes, as above -chest x-ray suggest aspiration pneumonia -repeat blood sputum cultures -check UA micro and urine culture - Empiric Zosyn -Continue bronchodilators (2) Aspiration pneumonia: Code(s): J69.0 - Pneumonitis due to inhalation of food and vomit Status: Acute Assessment and Plan: See above (3) UTI (urinary tract infection): Qualifiers: Urinary tract infection type: acute cystitis Hematuria presence: without hematuria Qualified Code(s): N30.00 - Acute cystitis without hematuria Code(s): N39.0 - Urinary tract infection, site not specified Status: Acute Assessment and Plan: -10/04: Urine cultures growing Klebs aerogenes ( Enterobacter) Completed a course of ceftriaxone but now on Zosyn (4) Heart failure with preserved ejection fraction: Qualifiers: Heart failure chronicity: unspecified Qualified Code(s): I50.30 - Unspecified diastolic (congestive) heart failure Code(s): I50.30 - Unspecified diastolic (congestive) heart failure Status: Acute Assessment and Plan: Echo 06/30/22 Summary ? 1. Complete two-dimensional, color flow and Doppler transthoracic echocardiogram is performed. ? 2. Left ventricular chamber dimension is normal. ? 3. Left ventricular systolic function is normal, estimated at 50-55%. ? 4. The left ventricular diastolic function is grade I diastolic dysfunction. ? 5. Right ventricular systolic function is normal. ? 6. There is mild aortic valve calcification. ? 7. The mitral valve annulus is mildly calcified. ? 8. The mitral valve has thickened leaflets. ? 9. There is trace mitral valve regurgitation. ? 10. There is mild tricuspid valve regurgitation. ? 11. There is mild aortic atherosclerosis. ? 12. Normal inferior vena cava with >50% collapse upon inspiration consistent with normal right atrial pressure, 3 mmHg. (5) Chronic obstructive pulmonary disease: Code(s): J44.9 - Chronic obstructive pulmonary disease, unspecified Status: Acute Assessment and Plan: Continue bronchodilators and supplemental oxygen (6) Pneumonia: Code(s): J18.9 - Pneumonia, unspecified organism Status: Acute Assessment and Plan: See above (7) History of pulmonary embolus (PE): Code(s): Z86.711 - Personal history of pulmonary embolism Status: Acute Assessment and Plan: Continue apixaban (8) Electrolyte abnormality: Code(s): E87.8 - Other disorders of electrolyte and fluid balance, not elsewhere classified Status: Acute Assessment and Plan: Replace low phosphate Plan DVT prophylaxis -apixaban Stress ulcer prophylaxis -PPI Nutrition -start tube feeds Continue MiraLax, senna, lactulose Code Status - Full Code Total Critical Care Time - 35 minutes Due to a high probability of clinically significant, life threatening deterioration, the patient required my highest level of preparedness to intervene emergently and I
[2022-10-16 09:39] LABS: Add Urine Microscopic? YES; Appearance Urine Turbid (Clear); Bacteria Urine None Seen /hpf; Bilirubin Urine Negative (Negative); Blood Urine 1+ (Negative); Color Urine Yellow (Yellow); Glucose Urine UA Negative (Negative); Ketones Urine Trace mg/dL (Negative); Leukocyte Esterase Ur 2+ LEU/UL (Negative); Need Manual Microscopic Reviewed; Nitrate Urine Negative (Negative); Non Pathogenic Casts 0-2; Protein Urine 1+ mg/dL (Negative); RBC Urine 21-50 /hpf (0-2); Specific Grav Ur 1.031 (1.001-1.035); Squamous Epithelial Cell Urine Occasional /hpf (Few); Urobilinogen Urine 0.2 mg/dL (<2.0); WBC Urine 51-100 /hpf; pH Urine 6.5 (5.0-9.0)
[2022-10-16 10:03] LABS: Procalcitonin 9.9 ng/mL
--- NOTE | 2022-10-16 10:54 | PCNFU ---
Nutrition Follow-Up Complete: Inadequate energy intake related to NPO as evidenced by mechanical vent, need for full tube feeding. goal: Tolerate tube feeding at goal rate Meet estimated energy requirements Patient will continue current goal. Pt current nutrition is Vital AF 1.2 at 20 ml/hr Nutrition recommendation: Current goal rate at 50 ml/hr Last recorded weight is 47.2 kg. Bowel Motility:+Bm reported 10/16 Labs Reviewed:Cr 0.4,BUN 19, NA 131, Alb 2.7 Meds Noted: Propofol at 10 mcgs=72 kcals, Fentanyl, Colace, Miralax, Atrovent Skin:WNL Additional Notes: Patient intubated for the 2nd time this admit. Tube feedings orders for Vital AF 1.2 starting at 20 ml/hr with plans to advance by 10 ml q 4 hours to goal rate of 50 ml/hr at this time. Tube feedings at 50 ml/hr are meeting 93% caloric needs and 100% protein needs. Flush 30 ml q 4 hours. Agree with diet orders. Monitoring tolerance, labs, weights, plan of care Follow daily in ICU rounds. Reassess Wednesday and Wednesday per policy
[2022-10-16] MEDS: NOREPINEPHRINE 8 MG/D5W 250 ML 8 MG/250 ML BAG 9.38 MG IV CONT (11:23)
[2022-10-16 11:27] LABS: Glucose Point of Care 100 mg/dl (65-105)
--- NOTE | 2022-10-16 13:11 | PCPTNOTE ---
Patient transferred to ICU and was intubated. PT will be discontinued at this time due to change in medical status.
--- NOTE | 2022-10-16 14:14 | WPDPN ---
Progress Note: A&P Assessment and Plan (1) Acute on chronic respiratory failure with hypoxia and hypercapnia: Code(s): J96.21 - Acute and chronic respiratory failure with hypoxia; J96.22 - Acute and chronic respiratory failure with hypercapnia Status: Acute Assessment and Plan: Acute on chronic Respiratory failure secondary to COPD exacerbation and questionable pneumonia. Patient has baseline severe COPD and diastolic heart failure -10/04: Patient intubated blood the outside hospital, placed on mechanical ventilation and transferred to [facility] ICU -Continue full mechanical ventilation support to prevent hypoxemia/hypercarbia and end organ damage. -Chest x-ray : Severe emphysema, -weaning steroids -Continue bronchodilators -Continue current empiric antibiotics Rocephin, and azithromycin (10/04) -vancomycin discontinued -10/05: Blood cultures obtained and pending 10/04: Urine culture growing Klebs aerogenes Patient was sedated with fentanyl propofol and Precedex. Sedation has been discontinued and planned for spontaneous breathing trial 10/10/2022: Extubated to nasal 10/11/2022: On 2 L nasal cannula. Will increase activity. Monitor 10/16/2022: interval history: Feels well. she is still weak however patient was able to participate in physical therapy and Walked with therapy earlier on 10/13, on 10/14 stated does not feel well and feels tired, Mild cough. Shortness of breath with exertion. on 10/15 after receiving duo neb patient became anxious and patient was given ativan without relief, and was unable to participate in PT not Eating well, states did not sleep well last night, will switch albuterol to xopenex, however later in the afternoon patient became more somolent, and slow to respond, discussed with creative/art director and patient was transferred ICU and her respiratory symptoms worsen became hypoxic and patient was intubated, suspect 2/2 aspiration pnuemonia, patient seen by creative/art director will follow and monitor (2) UTI (urinary tract infection): Qualifiers: Urinary tract infection type: acute cystitis Hematuria presence: without hematuria Qualified Code(s): N30.00 - Acute cystitis without hematuria Code(s): N39.0 - Urinary tract infection, site not specified Status: Acute Assessment and Plan: -10/04: Urine cultures growing Klebs aerogenes ( Enterobacter) -continue ceftriaxone 2 ceftriaxone concludes today with total 7 days course (3) Heart failure with preserved ejection fraction: Qualifiers: Heart failure chronicity: unspecified Qualified Code(s): I50.30 - Unspecified diastolic (congestive) heart failure Code(s): I50.30 - Unspecified diastolic (congestive) heart failure Status: Acute Assessment and Plan: Echo 06/30/22 Summary ? 1. Complete two-dimensional, color flow and Doppler transthoracic echocardiogram is performed. ? 2. Left ventricular chamber dimension is normal. ? 3. Left ventricular systolic function is normal, estimated at 50-55%. ? 4. The left ventricular diastolic function is grade I diastolic dysfunction. ? 5. Right ventricular systolic function is normal. ? 6. There is mild aortic valve calcification. ? 7. The mitral valve annulus is mildly calcified. ? 8. The mitral valve has thickened leaflets. ? 9. There is trace mitral valve regurgitation. ? 10. There is mild tricuspid valve regurgitation. ? 11. There is mild aortic atherosclerosis. ? 12. Normal inferior vena cava with >50% collapse upon inspiration consistent with normal right atrial pressure, 3 mmHg. (4) Chronic obstructive pulmonary disease: Code(s): J44.9 - Chronic obstructive pulmonary disease, unspecified Status: Acute Assessment and Plan: See above (5) Pneumonia: Code(s): J18.9 - Pneumonia, unspecified organism Status: Acute Assessment and Plan: See above (6) History of pulmonary embolus (PE): Code(s): Z86.711 - Person
[2022-10-16 17:25] LABS: Glucose Point of Care 94 mg/dl (65-105)
[2022-10-16] MEDS: MONTELUKAST SODIUM 10 MG TABLET PO (20:02)
[2022-10-17] VITALS (41 sets, daily range): BP systolic 77–129; BP diastolic 58–91; PULSE 80–120; RESP 20–23; TEMP 36.9–37.6; O2SAT 80–100
[2022-10-17 00:16] LABS: Glucose Point of Care 142 mg/dl (65-105)
[2022-10-17] MEDS: LEVALBUTEROL NEB 1.25 MG/3 ML 0.63 MG INHALATION ×4 (01:55→20:12)
[2022-10-17] MEDS: IPRATROPIUM BR 0.02% INH SOLN 0.5 MG/2.5 ML VIAL INHALATION ×4 (01:55→20:12)
[2022-10-17] MEDS: LACTATED RINGERS 1,000 ML 100 ML IV CONT (02:49)
[2022-10-17] MEDS: PROPOFOL IV EMULSION 100 ML 6.69 MG IV CONT (03:15)
[2022-10-17] MEDS: PIPERACILLIN/TAZOBACTAM SOD 4.5 GM in SODIUM CHLORIDE 0.9% IV 100 ML 200 ML IVPB ×4 (03:16→20:46)
[2022-10-17 06:07] LABS: Alveolar/Arterial O2 Gradient 69.5 mmHg; Base Excess ABG 11.7 mEq/l (+/-2.0); Carboxyhemoglobin 0.3 % THb (0-2.0); Fractional Inspired Oxygen 30 %; HCO3 ABG 39.9 mEq/l (22.0-26.0); Methemoglobin ABG 0.5 %THb (0-1.5); Oxygen Content ABG 10.1 %vol (16.0-22.0); PO2 ABG 50.3 mmHg (80.0-100.0); PO2 FiO2 Ratio Arterial Blood 1.68 %; Reduced Hemoglobin 18.5 %THb (0-5.0); Total Hemoglobin 8.9 g/dL (12.0-18.0); pH ABG 7.315 (7.350-7.450)
[2022-10-17 06:08] LABS: Device VENTILATOR; Modified Allen's Test Unable to perform; Oxygen Saturation ABG 80.2 % (95.0-100.0); Oxyhemoglobin 80.7 % THb (90.0-100.0); PCO2 ABG 80.1 mmHg (35.0-45.0); Site Drawn RIGHT RADIAL
[2022-10-17 06:09] LABS: Arterial Blood Gas PEEP 5 cmH2O; Arterial Blood Gas Tidal Volume 400 ml; Arterial Blood Gas Vent Mode CMV; Arterial Blood Gas Ventilator rate 20 /MIN
[2022-10-17] MEDS: CENTRAL LINE FLUSH 10 ML IV PUSH ×3 (06:10→20:49)
[2022-10-17 06:11] LABS: Hematocrit 24.2 % (37.0-47.0); Hemoglobin 7.5 g/dL (12.0-15.0); Mean Corpuscular Hemoglobin 30.4 pg (26-34); Mean Platelet Volume 10.2 fl (7.4-10.4); Platelet Count Result 186 k/mm3 (150-375); Red Blood Count 2.47 M/mm3 (4.2-5.4); Red Cell Distribution Width 13.2 % (11.5-14.5); White Blood Count 17.1 K/mm3 (4.5-10.0)
[2022-10-17 06:30] LABS: Blood Urea Nitrogen 21 mg/dL (7-17); Calcium 7.7 mg/dL (8.4-10.2); Carbon Dioxide > 40 mmol/L (22-30); Chloride 91 mmol/L (98-107); Estimated CRCL calculation 103 ml/min; Estimated Glomerular Filt Rate > 60; Glucose 137 mg/dL (65-110); Potassium 3.7 mmol/L (3.4-5.0); Sodium 130 mmol/L (137-145)
--- NOTE | 2022-10-17 08:44 | WPDINTPN ---
Progress Note: A&P Assessment and Plan (1) Acute on chronic respiratory failure with hypoxia and hypercapnia: Code(s): J96.21 - Acute and chronic respiratory failure with hypoxia; J96.22 - Acute and chronic respiratory failure with hypercapnia Status: Acute Assessment and Plan: Acute on chronic Respiratory failure secondary to COPD exacerbation and questionable pneumonia. Patient has baseline severe COPD and diastolic heart failure -10/04: Patient intubated blood the outside hospital, placed on mechanical ventilation and transferred to [facility] ICU -10/10: extubated -10/05: Blood cultures negative x2 -10/04: MRSA culture negative -10/05: Sputum cultures negative -completed course of Solu-Medrol, Rocephin, and azithromycin 10/15 -reintubated. ABG reviewed. Increase tidal volume to 440 mL Chest x-ray Extensive right basilar pneumonia, unchanged. Underlying severe COPD with left upper lobe linear scarring. Support tubes, as above -chest x-ray suggest aspiration pneumonia -procalcitonin level elevated at 9.9 -repeat blood sputum cultures have been sent and pending -urinalysis suggests UTI and urine culture is pending -continue Empiric Zosyn -Continue bronchodilators (2) Aspiration pneumonia: Code(s): J69.0 - Pneumonitis due to inhalation of food and vomit Status: Acute Assessment and Plan: See above (3) UTI (urinary tract infection): Qualifiers: Urinary tract infection type: acute cystitis Hematuria presence: without hematuria Qualified Code(s): N30.00 - Acute cystitis without hematuria Code(s): N39.0 - Urinary tract infection, site not specified Status: Acute Assessment and Plan: -10/04: Urine cultures growing Klebs aerogenes ( Enterobacter) Completed a course of ceftriaxone but now on Zosyn (4) Heart failure with preserved ejection fraction: Qualifiers: Heart failure chronicity: unspecified Qualified Code(s): I50.30 - Unspecified diastolic (congestive) heart failure Code(s): I50.30 - Unspecified diastolic (congestive) heart failure Status: Acute Assessment and Plan: Echo 06/30/22 Summary ? 1. Complete two-dimensional, color flow and Doppler transthoracic echocardiogram is performed. ? 2. Left ventricular chamber dimension is normal. ? 3. Left ventricular systolic function is normal, estimated at 50-55%. ? 4. The left ventricular diastolic function is grade I diastolic dysfunction. ? 5. Right ventricular systolic function is normal. ? 6. There is mild aortic valve calcification. ? 7. The mitral valve annulus is mildly calcified. ? 8. The mitral valve has thickened leaflets. ? 9. There is trace mitral valve regurgitation. ? 10. There is mild tricuspid valve regurgitation. ? 11. There is mild aortic atherosclerosis. ? 12. Normal inferior vena cava with >50% collapse upon inspiration consistent with normal right atrial pressure, 3 mmHg. (5) Chronic obstructive pulmonary disease: Code(s): J44.9 - Chronic obstructive pulmonary disease, unspecified Status: Acute Assessment and Plan: Continue bronchodilators and supplemental oxygen (6) Pneumonia: Code(s): J18.9 - Pneumonia, unspecified organism Status: Acute Assessment and Plan: See above (7) History of pulmonary embolus (PE): Code(s): Z86.711 - Personal history of pulmonary embolism Status: Acute Assessment and Plan: Continue apixaban (8) Electrolyte abnormality: Code(s): E87.8 - Other disorders of electrolyte and fluid balance, not elsewhere classified Status: Acute Assessment and Plan: Replace low calcium Replace low potassium (9) Anemia: Code(s): D64.9 - Anemia, unspecified Status: Acute Assessment and Plan: Patient does have history of anemia and is on Eliquis for history of VTE in 2019 Her hemoglobin has been gradually trending down over last few days No ob
[2022-10-17] MEDS: polyethylene glycoL 3350 17 GM POWD.PACK PO (09:22)
[2022-10-17] MEDS: PANTOPRAZOLE SODIUM IV 40 MG VIAL IV PUSH ×2 (09:23→20:47)
[2022-10-17] MEDS: DOCUSATE SODIUM LIQ 100 MG/10 ML UDC FEED TUBE (09:23)
[2022-10-17] MEDS: MINERAL OIL/WHITE PETROLATUM OINTMENT 1 APPLIC EACH EYE ×2 (09:23→20:46)
[2022-10-17] MEDS: FLUTICASONE PROPIONATE 0.05% NA SPR 16 GM BTL (*BKC) 2 SPRAY NASAL (09:24)
[2022-10-17] MEDS: LACTULOSE 20 GM/30 ML UDC PO (09:24)
[2022-10-17] MEDS: VENLAFAXINE HCL XR 75 MG CAP.ER.24H 150 MG PO (09:25)
[2022-10-17] MEDS: POTASSIUM CHLORIDE 20 MEQ PACKET (FOR LIQUID) 40 MEQ FEED TUBE (09:26)
[2022-10-17] MEDS: CALCIUM GLUC 2,000 MG/NS 100ML 2,000 MG/100 ML BAG 100 MG IVPB (09:40)
--- NOTE | 2022-10-17 09:44 | PC.NURSE ---
sedation paused at 0941 for spontaneous breathing trial per MD orders.
--- NOTE | 2022-10-17 10:08 | WPDPN ---
Progress Note: A&P Assessment and Plan (1) Acute on chronic respiratory failure with hypoxia and hypercapnia: Code(s): J96.21 - Acute and chronic respiratory failure with hypoxia; J96.22 - Acute and chronic respiratory failure with hypercapnia Status: Acute Assessment and Plan: Acute on chronic Respiratory failure secondary to COPD exacerbation and questionable pneumonia. Patient has baseline severe COPD and diastolic heart failure -10/04: Patient intubated blood the outside hospital, placed on mechanical ventilation and transferred to [facility] ICU -Continue full mechanical ventilation support to prevent hypoxemia/hypercarbia and end organ damage. -Chest x-ray : Severe emphysema, -weaning steroids -Continue bronchodilators -Continue current empiric antibiotics Rocephin, and azithromycin (10/04) -vancomycin discontinued -10/05: Blood cultures obtained and pending 10/04: Urine culture growing Klebs aerogenes Patient was sedated with fentanyl propofol and Precedex. Sedation has been discontinued and planned for spontaneous breathing trial 10/10/2022: Extubated to nasal 10/11/2022: On 2 L nasal cannula. Will increase activity. Monitor 10/17/2022: interval history: Feels well. she is still weak however patient was able to participate in physical therapy and Walked with therapy earlier on 10/13, on 10/14 stated does not feel well and feels tired, Mild cough. Shortness of breath with exertion. on 10/15 after receiving duo neb patient became anxious and patient was given ativan without relief, and was unable to participate in PT not Eating well, states did not sleep well last night, will switch albuterol to xopenex, however later in the afternoon patient became more somolent, and slow to respond, on 10/15 discussed with software design analyst and patient was transferred to ICU and her respiratory symptoms worsen became hypoxic and patient was intubated, suspect 2/2 aspiration pnuemonia, today patient follow intstruction and weaning trial is chikis in anticipation of exturbation, patient seen by software design analyst will follow and monitor (2) UTI (urinary tract infection): Qualifiers: Urinary tract infection type: acute cystitis Hematuria presence: without hematuria Qualified Code(s): N30.00 - Acute cystitis without hematuria Code(s): N39.0 - Urinary tract infection, site not specified Status: Acute Assessment and Plan: -10/04: Urine cultures growing Klebs aerogenes ( Enterobacter) -continue ceftriaxone 2 ceftriaxone concludes today with total 7 days course (3) Heart failure with preserved ejection fraction: Qualifiers: Heart failure chronicity: unspecified Qualified Code(s): I50.30 - Unspecified diastolic (congestive) heart failure Code(s): I50.30 - Unspecified diastolic (congestive) heart failure Status: Acute Assessment and Plan: Echo 06/30/22 Summary ? 1. Complete two-dimensional, color flow and Doppler transthoracic echocardiogram is performed. ? 2. Left ventricular chamber dimension is normal. ? 3. Left ventricular systolic function is normal, estimated at 50-55%. ? 4. The left ventricular diastolic function is grade I diastolic dysfunction. ? 5. Right ventricular systolic function is normal. ? 6. There is mild aortic valve calcification. ? 7. The mitral valve annulus is mildly calcified. ? 8. The mitral valve has thickened leaflets. ? 9. There is trace mitral valve regurgitation. ? 10. There is mild tricuspid valve regurgitation. ? 11. There is mild aortic atherosclerosis. ? 12. Normal inferior vena cava with >50% collapse upon inspiration consistent with normal right atrial pressure, 3 mmHg. (4) Chronic obstructive pulmonary disease: Code(s): J44.9 - Chronic obstructive pulmonary disease, unspecified Status: Acute Assessment and Plan: See above (5) Pneumonia: Code(s): J18.9 - Pneumonia, unspecified organism Status: Acute A
[2022-10-17 11:44] LABS: Glucose Point of Care 143 mg/dl (65-105)
[2022-10-17] MEDS: PROPOFOL IV EMULSION 100 ML 4.01 MG IV CONT (11:59)
[2022-10-17 16:56] LABS: Hemoglobin 7.1 g/dL (12.0-15.0); Mean Corpuscular HGB Conc 30.9 g/dl (32-36); Mean Platelet Volume 10.4 fl (7.4-10.4); Platelet Count Result 171 k/mm3 (150-375); Red Blood Count 2.37 M/mm3 (4.2-5.4); Red Cell Distribution Width 13.4 % (11.5-14.5); White Blood Count 13.8 K/mm3 (4.5-10.0)
[2022-10-17 17:19] LABS: Glucose Point of Care 137 mg/dl (65-105)
[2022-10-17] MEDS: FENTANYL 2,500MCG/NS250ML(*CRX 2,500 MCG/250 ML BAG IV CONT (18:41)
[2022-10-17] MEDS: MONTELUKAST SODIUM 10 MG TABLET PO (20:47)
[2022-10-17] MEDS: PROPOFOL IV EMULSION 100 ML 13.38 MG IV CONT (23:11)
[2022-10-18] VITALS (41 sets, daily range): BP systolic 83–146; BP diastolic 62–93; PULSE 76–123; RESP 18–100; TEMP 36.7–37.8; O2SAT 80–100
[2022-10-18] MEDS: IPRATROPIUM BR 0.02% INH SOLN 0.5 MG/2.5 ML VIAL INHALATION ×4 (02:31→20:13)
[2022-10-18] MEDS: LEVALBUTEROL NEB 1.25 MG/3 ML 0.63 MG INHALATION ×4 (02:31→20:13)
[2022-10-18] MEDS: PIPERACILLIN/TAZOBACTAM SOD 4.5 GM in SODIUM CHLORIDE 0.9% IV 100 ML 200 ML IVPB ×4 (04:31→20:40)
[2022-10-18 04:49] LABS: Hematocrit 22.4 % (37.0-47.0); Mean Corpuscular HGB Conc 31.3 g/dl (32-36); Mean Corpuscular Hemoglobin 30.3 pg (26-34); Mean Platelet Volume 10.4 fl (7.4-10.4); Platelet Count Result 179 k/mm3 (150-375); Red Blood Count 2.31 M/mm3 (4.2-5.4); Red Cell Distribution Width 13.6 % (11.5-14.5); White Blood Count 10.3 K/mm3 (4.5-10.0)
[2022-10-18] MEDS: PROPOFOL IV EMULSION 100 ML 13.8 MG IV CONT (04:52)
[2022-10-18] MEDS: CENTRAL LINE FLUSH 10 ML IV PUSH ×3 (04:54→20:44)
[2022-10-18 05:03] LABS: Alveolar/Arterial O2 Gradient 80.1 mmHg; Base Excess ABG 9.4 mEq/l (+/-2.0); Carboxyhemoglobin 0.3 % THb (0-2.0); Device VENTILATOR; Fractional Inspired Oxygen 30 %; HCO3 ABG 34.8 mEq/l (22.0-26.0); Methemoglobin ABG 0.3 %THb (0-1.5); Modified Allen's Test Pass; Oxygen Content ABG 13.7 %vol (16.0-22.0); Oxygen Saturation ABG 94.9 % (95.0-100.0); Oxyhemoglobin 93.1 % THb (90.0-100.0); PCO2 ABG 52.2 mmHg (35.0-45.0); PO2 ABG 72.5 mmHg (80.0-100.0); PO2 FiO2 Ratio Arterial Blood 2.42 %; Reduced Hemoglobin 6.3 %THb (0-5.0); Site Drawn RIGHT RADIAL; Total Hemoglobin 10.4 g/dL (12.0-18.0); pH ABG 7.442 (7.350-7.450)
[2022-10-18 05:04] LABS: Arterial Blood Gas PEEP 5 cmH2O; Arterial Blood Gas Tidal Volume 440 ml; Arterial Blood Gas Vent Mode CMV; Arterial Blood Gas Ventilator rate 20 /MIN
[2022-10-18 05:12] LABS: Anion Gap 1 mmol/L (8-16); Blood Urea Nitrogen 15 mg/dL (7-17); Calcium 7.9 mg/dL (8.4-10.2); Carbon Dioxide 38 mmol/L (22-30); Chloride 91 mmol/L (98-107); Estimated CRCL calculation 131 ml/min; Estimated Glomerular Filt Rate > 60; Glucose 126 mg/dL (65-110); Phosphorus 2.9 mg/dL (2.5-4.5); Potassium 3.7 mmol/L (3.4-5.0); Sodium 130 mmol/L (137-145); Triglycerides 154 mg/dL (<150)
--- NOTE | 2022-10-18 08:04 | PC.NURSE ---
Sedation paused at 0758 for sedation holiday/ spont breathing trial per MD orders.
[2022-10-18] MEDS: POTASSIUM CHLORIDE 20 MEQ PACKET (FOR LIQUID) 40 MEQ FEED TUBE (08:09)
[2022-10-18] MEDS: polyethylene glycoL 3350 17 GM POWD.PACK PO ×2 (08:10→18:12)
[2022-10-18] MEDS: PANTOPRAZOLE SODIUM IV 40 MG VIAL IV PUSH ×2 (08:10→20:43)
[2022-10-18] MEDS: LACTULOSE 20 GM/30 ML UDC PO (08:11)
[2022-10-18] MEDS: MINERAL OIL/WHITE PETROLATUM OINTMENT 1 APPLIC EACH EYE (08:11)
[2022-10-18] MEDS: DOCUSATE SODIUM LIQ 100 MG/10 ML UDC FEED TUBE (08:11)
[2022-10-18] MEDS: FLUTICASONE PROPIONATE 0.05% NA SPR 16 GM BTL (*BKC) 2 SPRAY NASAL (08:11)
[2022-10-18] MEDS: VENLAFAXINE HCL XR 75 MG CAP.ER.24H 150 MG PO (08:11)
--- NOTE | 2022-10-18 08:38 | WPDINTPN ---
Progress Note: A&P Assessment and Plan (1) Acute on chronic respiratory failure with hypoxia and hypercapnia: Code(s): J96.21 - Acute and chronic respiratory failure with hypoxia; J96.22 - Acute and chronic respiratory failure with hypercapnia Status: Acute Assessment and Plan: Acute on chronic Respiratory failure secondary to COPD exacerbation and questionable pneumonia. Patient has baseline severe COPD and diastolic heart failure -10/04: Patient intubated blood the outside hospital, placed on mechanical ventilation and transferred to [facility] ICU -10/10: extubated -10/05: Blood cultures negative x2 -10/04: MRSA culture negative -10/05: Sputum cultures negative -completed course of Solu-Medrol, Rocephin, and azithromycin 10/15 -reintubated. ABG reviewed. Increase tidal volume to 440 mL Chest x-ray Extensive right basilar pneumonia, unchanged. Underlying severe COPD with left upper lobe linear scarring. Support tubes, as above -chest x-ray suggest aspiration pneumonia -procalcitonin level elevated at 9.9 -repeat blood sputum cultures have been sent and pending -urinalysis suggests UTI and urine culture is pending -continue Empiric Zosyn -Continue bronchodilators 10/17: Failed weaning trial within minutes due to desaturation and high RSBI with increased work of breathing 10/18: Will perform sedation holiday and attempted weaning trial (2) Aspiration pneumonia: Code(s): J69.0 - Pneumonitis due to inhalation of food and vomit Status: Acute Assessment and Plan: See above (3) UTI (urinary tract infection): Qualifiers: Urinary tract infection type: acute cystitis Hematuria presence: without hematuria Qualified Code(s): N30.00 - Acute cystitis without hematuria Code(s): N39.0 - Urinary tract infection, site not specified Status: Acute Assessment and Plan: -10/04: Urine cultures growing Klebs aerogenes ( Enterobacter) Completed a course of ceftriaxone but now on Zosyn (4) Heart failure with preserved ejection fraction: Qualifiers: Heart failure chronicity: unspecified Qualified Code(s): I50.30 - Unspecified diastolic (congestive) heart failure Code(s): I50.30 - Unspecified diastolic (congestive) heart failure Status: Acute Assessment and Plan: Echo 06/30/22 Summary ? 1. Complete two-dimensional, color flow and Doppler transthoracic echocardiogram is performed. ? 2. Left ventricular chamber dimension is normal. ? 3. Left ventricular systolic function is normal, estimated at 50-55%. ? 4. The left ventricular diastolic function is grade I diastolic dysfunction. ? 5. Right ventricular systolic function is normal. ? 6. There is mild aortic valve calcification. ? 7. The mitral valve annulus is mildly calcified. ? 8. The mitral valve has thickened leaflets. ? 9. There is trace mitral valve regurgitation. ? 10. There is mild tricuspid valve regurgitation. ? 11. There is mild aortic atherosclerosis. ? 12. Normal inferior vena cava with >50% collapse upon inspiration consistent with normal right atrial pressure, 3 mmHg. (5) Chronic obstructive pulmonary disease: Code(s): J44.9 - Chronic obstructive pulmonary disease, unspecified Status: Acute Assessment and Plan: Continue bronchodilators and supplemental oxygen (6) Pneumonia: Code(s): J18.9 - Pneumonia, unspecified organism Status: Acute Assessment and Plan: See above (7) History of pulmonary embolus (PE): Code(s): Z86.711 - Personal history of pulmonary embolism Status: Acute Assessment and Plan: apixaban on hold (8) Electrolyte abnormality: Code(s): E87.8 - Other disorders of electrolyte and fluid balance, not elsewhere classified Status: Acute Assessment and Plan: Replace low calcium Replace low potassium (9) Anemia: Code(s): D64.9 - Anemia, unspecified Status: Acute
[2022-10-18 08:40] LABS: Immature Reticulocyte Fraction 11.9 % (3.0-15.9); Reticulocyte Hemoglobin Conten 27.9 pg (28.2-35.7); Reticulocyte Percent 0.99 % (0.7-4.3); Reticulocytes Absolute 0.03 M/mm3 (0.02-0.1)
[2022-10-18 08:59] LABS: Transferrin 154 mg/dL (206-381)
[2022-10-18 09:40] LABS: Iron 21 ug/dL (37-170)
[2022-10-18 09:59] LABS: Folic Acid 11.9 ng/mL (2.76->20)
[2022-10-18 10:14] LABS: Percent Iron Saturation 8 % (20-50)
--- NOTE | 2022-10-18 11:06 | WPDPN ---
Progress Note: A&P Assessment and Plan (1) Acute on chronic respiratory failure with hypoxia and hypercapnia: Code(s): J96.21 - Acute and chronic respiratory failure with hypoxia; J96.22 - Acute and chronic respiratory failure with hypercapnia Status: Acute Assessment and Plan: Acute on chronic Respiratory failure secondary to COPD exacerbation and questionable pneumonia. Patient has baseline severe COPD and diastolic heart failure -10/04: Patient intubated blood the outside hospital, placed on mechanical ventilation and transferred to [facility] ICU -Continue full mechanical ventilation support to prevent hypoxemia/hypercarbia and end organ damage. -Chest x-ray : Severe emphysema, -weaning steroids -Continue bronchodilators -Continue current empiric antibiotics Rocephin, and azithromycin (10/04) -vancomycin discontinued -10/05: Blood cultures obtained and pending 10/04: Urine culture growing Klebs aerogenes Patient was sedated with fentanyl propofol and Precedex. Sedation has been discontinued and planned for spontaneous breathing trial 10/10/2022: Extubated to nasal 10/11/2022: On 2 L nasal cannula. Will increase activity. Monitor 10/18/2022: interval history:? Feels well.? she is still weak however patient was able to participate in physical therapy and Walked with therapy earlier on 10/13, on 10/14? stated? does not feel well and feels tired, ? Mild cough.? Shortness of breath with exertion. on 10/15 after receiving duo neb patient became anxious and patient was given ativan without relief, and was unable to participate in PT not Eating well, states did not sleep well last night, will switch albuterol to xopenex, however later in the afternoon patient became more somolent, and slow to respond, on 10/15 discussed with digital asset coordinator and patient was transferred to ICU and her respiratory symptoms worsen became hypoxic and patient was intubated, suspect 2/2 aspiration pnuemonia, today patient is given sadation holiday, follows intstruction and weaning trial is given in anticipation of extubation,? patient seen by digital asset coordinator will follow and monitor. (2) UTI (urinary tract infection): Qualifiers: Urinary tract infection type: acute cystitis Hematuria presence: without hematuria Qualified Code(s): N30.00 - Acute cystitis without hematuria Code(s): N39.0 - Urinary tract infection, site not specified Status: Acute Assessment and Plan: -10/04: Urine cultures growing Klebs aerogenes ( Enterobacter) -continue ceftriaxone 2 ceftriaxone concludes today with total 7 days course (3) Heart failure with preserved ejection fraction: Qualifiers: Heart failure chronicity: unspecified Qualified Code(s): I50.30 - Unspecified diastolic (congestive) heart failure Code(s): I50.30 - Unspecified diastolic (congestive) heart failure Status: Acute Assessment and Plan: Echo 06/30/22 Summary ? 1. Complete two-dimensional, color flow and Doppler transthoracic echocardiogram is performed. ? 2. Left ventricular chamber dimension is normal. ? 3. Left ventricular systolic function is normal, estimated at 50-55%. ? 4. The left ventricular diastolic function is grade I diastolic dysfunction. ? 5. Right ventricular systolic function is normal. ? 6. There is mild aortic valve calcification. ? 7. The mitral valve annulus is mildly calcified. ? 8. The mitral valve has thickened leaflets. ? 9. There is trace mitral valve regurgitation. ? 10. There is mild tricuspid valve regurgitation. ? 11. There is mild aortic atherosclerosis. ? 12. Normal inferior vena cava with >50% collapse upon inspiration consistent with normal right atrial pressure, 3 mmHg. (4) Chronic obstructive pulmonary disease: Code(s): J44.9 - Chronic obstructive pulmonary disease, unspecified Status: Acute Assessment and Plan: See above (5) Pneumonia: Code(s): J18.9 - Pneumonia, unspecified organism
[2022-10-18 12:38] LABS: Glucose Point of Care 152 mg/dl (65-105)
[2022-10-18] MEDS: BISACODYL 10 MG SUPPOSITORY RECTAL (16:33)
[2022-10-18] MEDS: PROPOFOL IV EMULSION 100 ML 9.2 MG IV CONT (16:35)
[2022-10-18 16:52] LABS: Hematocrit 24.5 % (37.0-47.0); Hemoglobin 7.5 g/dL (12.0-15.0); Mean Corpuscular HGB Conc 30.6 g/dl (32-36); Mean Platelet Volume 10.8 fl (7.4-10.4); Platelet Count Result 107 k/mm3 (150-375); Red Cell Distribution Width 13.9 % (11.5-14.5); White Blood Count 11.2 K/mm3 (4.5-10.0)
[2022-10-18 17:45] LABS: Glucose Point of Care 180 mg/dl (65-105)
[2022-10-18 18:27] LABS: Glucose Point of Care 163 mg/dl (65-105)
[2022-10-18] MEDS: MONTELUKAST SODIUM 10 MG TABLET PO (20:43)
[2022-10-19] VITALS (54 sets, daily range): BP systolic 80–126; BP diastolic 63–87; PULSE 83–114; RESP 18–191; TEMP 36.9–38.2; O2SAT 18–100
[2022-10-19 00:10] LABS: Glucose Point of Care 139 mg/dl (65-105)
[2022-10-19] MEDS: PROPOFOL IV EMULSION 100 ML 15.33 MG IV CONT (01:00)
[2022-10-19] MEDS: IPRATROPIUM BR 0.02% INH SOLN 0.5 MG/2.5 ML VIAL INHALATION ×4 (02:43→20:37)
[2022-10-19] MEDS: LEVALBUTEROL NEB 1.25 MG/3 ML 0.63 MG INHALATION ×4 (02:43→20:36)
[2022-10-19] MEDS: PIPERACILLIN/TAZOBACTAM SOD 4.5 GM in SODIUM CHLORIDE 0.9% IV 100 ML 200 ML IVPB ×4 (03:36→20:30)
[2022-10-19 05:40] LABS: Alveolar/Arterial O2 Gradient 94.3 mmHg; Base Excess ABG 8.1 mEq/l (+/-2.0); Carboxyhemoglobin 0.7 % THb (0-2.0); Fractional Inspired Oxygen 30 %; HCO3 ABG 31.5 mEq/l (22.0-26.0); Methemoglobin ABG 0.3 %THb (0-1.5); Oxygen Content ABG 11.5 %vol (16.0-22.0); Oxygen Saturation ABG 96.1 % (95.0-100.0); PCO2 ABG 39.3 mmHg (35.0-45.0); PO2 ABG 73.4 mmHg (80.0-100.0); PO2 FiO2 Ratio Arterial Blood 2.45 %; Total Hemoglobin 8.5 g/dL (12.0-18.0)
[2022-10-19 05:44] LABS: Arterial Blood Gas Vent Mode CMV; Arterial Blood Gas Ventilator rate 18 /MIN; Device VENTILATOR; Modified Allen's Test Pass; Site Drawn RIGHT RADIAL; pH ABG 7.522 (7.350-7.450)
[2022-10-19 05:45] LABS: Arterial Blood Gas PEEP 5 cmH2O; Arterial Blood Gas Tidal Volume 440 ml
[2022-10-19 05:59] LABS: Hematocrit 23.4 % (37.0-47.0); Hemoglobin 7.1 g/dL (12.0-15.0); Mean Corpuscular HGB Conc 30.3 g/dl (32-36); Mean Corpuscular Volume 95.5 fl (80-100); Mean Platelet Volume 10.4 fl (7.4-10.4); Platelet Count Result 192 k/mm3 (150-375); Red Blood Count 2.45 M/mm3 (4.2-5.4); Red Cell Distribution Width 13.9 % (11.5-14.5); White Blood Count 7.9 K/mm3 (4.5-10.0)
[2022-10-19] MEDS: CENTRAL LINE FLUSH 10 ML IV PUSH ×3 (06:00→20:31)
[2022-10-19] MEDS: PROPOFOL IV EMULSION 100 ML 13.8 MG IV CONT (06:03)
[2022-10-19 06:04] LABS: Phosphorus 3.1 mg/dL (2.5-4.5)
[2022-10-19 06:08] LABS: Anion Gap 0 mmol/L (8-16); Blood Urea Nitrogen 11 mg/dL (7-17); Calcium 7.9 mg/dL (8.4-10.2); Carbon Dioxide 36 mmol/L (22-30); Chloride 94 mmol/L (98-107); Estimated CRCL calculation 133 ml/min; Estimated Glomerular Filt Rate > 60; Glucose 133 mg/dL (65-110); Potassium 3.8 mmol/L (3.4-5.0); Sodium 130 mmol/L (137-145)
[2022-10-19] MEDS: MINERAL OIL/WHITE PETROLATUM OINTMENT 1 APPLIC EACH EYE ×2 (08:13→20:16)
[2022-10-19] MEDS: LACTULOSE 20 GM/30 ML UDC PO (08:13)
[2022-10-19] MEDS: DOCUSATE SODIUM LIQ 100 MG/10 ML UDC FEED TUBE (08:13)
[2022-10-19] MEDS: polyethylene glycoL 3350 17 GM POWD.PACK PO ×2 (08:13→16:40)
[2022-10-19] MEDS: PANTOPRAZOLE SODIUM IV 40 MG VIAL IV PUSH ×2 (08:14→20:16)
[2022-10-19] MEDS: VENLAFAXINE HCL XR 75 MG CAP.ER.24H 150 MG PO (08:14)
[2022-10-19] MEDS: FLUTICASONE PROPIONATE 0.05% NA SPR 16 GM BTL (*BKC) 2 SPRAY NASAL (08:14)
[2022-10-19] MEDS: UMECLIDINIUM BROMIDE 62.5 MCG ELLIPTA 1 PUFF INHALATION (08:28)
[2022-10-19] MEDS: FLUTICASONE/SALMETEROL 115-21 MCG INHALER 1 PUFF 2 PUFF INHALATION (08:28)
--- NOTE | 2022-10-19 08:38 | PCRCNOTE ---
RT and RN at bedside, spont trial attempted at 0815 @ 01/[address] Patel's order. Pt lasted for 15mins on trial before becoming anxious and complaining of SOB, became tachycardic. Dr. Patel informed and returned back to [facility] settings at this time.
--- NOTE | 2022-10-19 08:41 | WPDINTPN ---
Progress Note: A&P Assessment and Plan (1) Acute on chronic respiratory failure with hypoxia and hypercapnia: Code(s): J96.21 - Acute and chronic respiratory failure with hypoxia; J96.22 - Acute and chronic respiratory failure with hypercapnia Status: Acute Assessment and Plan: Acute on chronic Respiratory failure secondary to COPD exacerbation and questionable pneumonia. Patient has baseline severe COPD and diastolic heart failure -10/04: Patient intubated blood the outside hospital, placed on mechanical ventilation and transferred to [facility] ICU -10/10: extubated -10/05: Blood cultures negative x2 -10/04: MRSA culture negative -10/05: Sputum cultures negative -completed course of Solu-Medrol, Rocephin, and azithromycin 10/15 -reintubated. ABG reviewed. Increase tidal volume to 440 mL Chest x-ray Extensive right basilar pneumonia, unchanged. Underlying severe COPD with left upper lobe linear scarring. Support tubes, as above -chest x-ray suggest aspiration pneumonia -procalcitonin level elevated at 9.9 -repeat blood sputum cultures have been sent and are negative till now -urinalysis suggests UTI and urine culture is negative till now -continue Empiric Zosyn -Continue bronchodilators 10/17: Failed weaning trial within minutes due to desaturation and high RSBI with increased work of breathing 10/18: Failed weaning trial immediately due to drop in saturation and tachypnea 10/19: Patient kept on light sedation to prevent anxiety during weaning trial. Patient was placed on PSV 10/5. While on pressure support patient states she felt short of breath and did not wanted to continue. Patient was placed back on CMV. I will start her on Precedex for fusion weaning trial (2) Aspiration pneumonia: Code(s): J69.0 - Pneumonitis due to inhalation of food and vomit Status: Acute Assessment and Plan: See above (3) UTI (urinary tract infection): Qualifiers: Urinary tract infection type: acute cystitis Hematuria presence: without hematuria Qualified Code(s): N30.00 - Acute cystitis without hematuria Code(s): N39.0 - Urinary tract infection, site not specified Status: Acute Assessment and Plan: -10/04: Urine cultures growing Klebs aerogenes ( Enterobacter) Completed a course of ceftriaxone but now on Zosyn (4) Heart failure with preserved ejection fraction: Qualifiers: Heart failure chronicity: unspecified Qualified Code(s): I50.30 - Unspecified diastolic (congestive) heart failure Code(s): I50.30 - Unspecified diastolic (congestive) heart failure Status: Acute Assessment and Plan: Echo 06/30/22 Summary ? 1. Complete two-dimensional, color flow and Doppler transthoracic echocardiogram is performed. ? 2. Left ventricular chamber dimension is normal. ? 3. Left ventricular systolic function is normal, estimated at 50-55%. ? 4. The left ventricular diastolic function is grade I diastolic dysfunction. ? 5. Right ventricular systolic function is normal. ? 6. There is mild aortic valve calcification. ? 7. The mitral valve annulus is mildly calcified. ? 8. The mitral valve has thickened leaflets. ? 9. There is trace mitral valve regurgitation. ? 10. There is mild tricuspid valve regurgitation. ? 11. There is mild aortic atherosclerosis. ? 12. Normal inferior vena cava with >50% collapse upon inspiration consistent with normal right atrial pressure, 3 mmHg. (5) Chronic obstructive pulmonary disease: Code(s): J44.9 - Chronic obstructive pulmonary disease, unspecified Status: Acute Assessment and Plan: Continue bronchodilators and supplemental oxygen (6) Pneumonia: Code(s): J18.9 - Pneumonia, unspecified organism Status: Acute Assessment and Plan: See above (7) History of pulmonary embolus (PE): Code(s): Z86.711 - Personal history of pulmonary embolism Status: Acute Assessment
[2022-10-19] MEDS: dexmedeTOMIDine 400 MCG/100 ML 400 MCG/100 ML BAG IV CONT (09:06)
[2022-10-19] MEDS: MORPHINE SULFATE (*CRX) 2 MG/ML INJ IV PUSH (10:23)
[2022-10-19] MEDS: IRON SUCROSE COMPLEX 200 MG in SODIUM CHLORIDE 0.9% IV 50 ML 120 MG IVPB (10:23)
--- NOTE | 2022-10-19 10:27 | PCFNICU ---
ICU Rounding Note: Pt current nutrition is Vital 1.2 @ 50 ml.h: 1375 kcal, 82.5 g protein, 892 ml free water. 30 ml free water flushes q 4 hours. tolerating well. Propofol @ 7.67 ml/h= 202 kcals. Nutrition recommendation: Continue with same tube feeding orders. Agree with orders. Last recorded weight is 52 kg. Bowel Motility: +1 BM 10/18/22. 10/05/22: 43 kg. +9 kg/ 14 days. Pt came in malnourished related to chronic illness Labs Reviewed: Hgb 7.1, Hct 23.4, Na 130, Cre 0.3 Meds Noted: Propofol, precedex, protonix, Zofran, lactulose, miralax Skin: WNL Additional Notes: Mechanical vent continues. Extubated then re-intubated 10/16/22. Tolerating tube feeding. Agree with current nutrition care plan and orders. Following daily in ICU rounds. Monitoring tolerance, labs, weights, plan of care Follow daily in ICU rounds. Reassess Wednesday and Wednesday per policy .
[2022-10-19] MEDS: HYDROcodone/acetaminophen (*CRX) 7.5-325 MG TABLET 1 TAB FEED TUBE ×2 (12:55→20:15)
[2022-10-19 13:16] LABS: Glucose Point of Care 169 mg/dl (65-105)
--- NOTE | 2022-10-19 13:54 | WPDPN ---
Progress Note: A&P Assessment and Plan (1) Acute on chronic respiratory failure with hypoxia and hypercapnia: Code(s): J96.21 - Acute and chronic respiratory failure with hypoxia; J96.22 - Acute and chronic respiratory failure with hypercapnia Status: Acute Assessment and Plan: Acute on chronic Respiratory failure secondary to COPD exacerbation and questionable pneumonia. Patient has baseline severe COPD and diastolic heart failure -10/04: Patient intubated blood the outside hospital, placed on mechanical ventilation and transferred to [facility] ICU -Continue full mechanical ventilation support to prevent hypoxemia/hypercarbia and end organ damage. -Chest x-ray : Severe emphysema, -weaning steroids -Continue bronchodilators -Continue current empiric antibiotics Rocephin, and azithromycin (10/04) -vancomycin discontinued -10/05: Blood cultures obtained and pending 10/04: Urine culture growing Klebs aerogenes Patient was sedated with fentanyl propofol and Precedex. Sedation has been discontinued and planned for spontaneous breathing trial 10/10/2022: Extubated to nasal 10/11/2022: On 2 L nasal cannula. Will increase activity. Monitor 10/19/2022: interval history:? Feels well.? she is still weak however patient was able to participate in physical therapy and Walked with therapy earlier on 10/13, on 10/14? stated? does not feel well and feels tired, ? Mild cough.? Shortness of breath with exertion. on 10/15 after receiving duo neb patient became anxious and patient was given ativan without relief, and was unable to participate in PT not Eating well, states did not sleep well last night, will switch albuterol to xopenex, however later in the afternoon patient became more somolent, and slow to respond, on 10/15 discussed with machine adjuster and patient was transferred to ICU and her respiratory symptoms worsen became hypoxic and patient was intubated, suspect 2/2 aspiration pnuemonia, today again patient was given sadation holiday, follows intstruction and weaning trial was given in anticipation of extubation however patient was not able to tolerate, today discussed with machine adjuster, prognosis is poor, patient may need trach will monitor, patient is seen by machine adjuster will follow and monitor. (2) UTI (urinary tract infection): Qualifiers: Urinary tract infection type: acute cystitis Hematuria presence: without hematuria Qualified Code(s): N30.00 - Acute cystitis without hematuria Code(s): N39.0 - Urinary tract infection, site not specified Status: Acute Assessment and Plan: -10/04: Urine cultures growing Klebs aerogenes ( Enterobacter) -continue ceftriaxone 2 ceftriaxone concludes today with total 7 days course (3) Heart failure with preserved ejection fraction: Qualifiers: Heart failure chronicity: unspecified Qualified Code(s): I50.30 - Unspecified diastolic (congestive) heart failure Code(s): I50.30 - Unspecified diastolic (congestive) heart failure Status: Acute Assessment and Plan: Echo 06/30/22 Summary ? 1. Complete two-dimensional, color flow and Doppler transthoracic echocardiogram is performed. ? 2. Left ventricular chamber dimension is normal. ? 3. Left ventricular systolic function is normal, estimated at 50-55%. ? 4. The left ventricular diastolic function is grade I diastolic dysfunction. ? 5. Right ventricular systolic function is normal. ? 6. There is mild aortic valve calcification. ? 7. The mitral valve annulus is mildly calcified. ? 8. The mitral valve has thickened leaflets. ? 9. There is trace mitral valve regurgitation. ? 10. There is mild tricuspid valve regurgitation. ? 11. There is mild aortic atherosclerosis. ? 12. Normal inferior vena cava with >50% collapse upon inspiration consistent with normal right atrial pressure, 3 mmHg. (4) Chronic obstructive pulmonary disease: Code(s): J44.9 - Chronic obstructive pulmonary disease, unspe
[2022-10-19] MEDS: PROPOFOL IV EMULSION 100 ML 10.73 MG IV CONT (15:24)
[2022-10-19 16:56] LABS: Glucose Point of Care 166 mg/dl (65-105)
[2022-10-19] MEDS: MONTELUKAST SODIUM 10 MG TABLET PO (20:16)
[2022-10-20] VITALS (42 sets, daily range): BP systolic 82–108; BP diastolic 57–86; PULSE 85–109; RESP 10–24; TEMP 36.8–37.9; O2SAT 95–100
[2022-10-20 01:02] LABS: Glucose Point of Care 150 mg/dl (65-105)
[2022-10-20] MEDS: dexmedeTOMIDine 400 MCG/100 ML 400 MCG/100 ML BAG 6.5 MCG IV CONT (01:22)
[2022-10-20] MEDS: PROPOFOL IV EMULSION 100 ML 12.26 MG IV CONT (01:23)
[2022-10-20] MEDS: HYDROcodone/acetaminophen (*CRX) 7.5-325 MG TABLET 1 TAB FEED TUBE ×2 (01:26→14:16)
[2022-10-20] MEDS: LEVALBUTEROL NEB 1.25 MG/3 ML 0.63 MG INHALATION ×4 (03:13→20:24)
[2022-10-20] MEDS: IPRATROPIUM BR 0.02% INH SOLN 0.5 MG/2.5 ML VIAL INHALATION ×4 (03:13→20:24)
[2022-10-20] MEDS: PIPERACILLIN/TAZOBACTAM SOD 4.5 GM in SODIUM CHLORIDE 0.9% IV 100 ML 200 ML IVPB ×4 (04:00→20:12)
[2022-10-20 05:04] LABS: Hematocrit 23.4 % (37.0-47.0); Hemoglobin 7.2 g/dL (12.0-15.0); Mean Corpuscular HGB Conc 30.8 g/dl (32-36); Mean Corpuscular Hemoglobin 29.1 pg (26-34); Mean Corpuscular Volume 94.7 fl (80-100); Platelet Count Result 188 k/mm3 (150-375); Red Blood Count 2.47 M/mm3 (4.2-5.4)
[2022-10-20 05:29] LABS: Anion Gap -1 mmol/L (8-16); Blood Urea Nitrogen 9 mg/dL (7-17); Calcium 7.8 mg/dL (8.4-10.2); Carbon Dioxide 39 mmol/L (22-30); Chloride 97 mmol/L (98-107); Estimated CRCL calculation 133 ml/min; Estimated Glomerular Filt Rate > 60; Glucose 141 mg/dL (65-110); Phosphorus 4.2 mg/dL (2.5-4.5); Potassium 3.6 mmol/L (3.4-5.0); Sodium 135 mmol/L (137-145); Triglycerides 172 mg/dL (<150)
[2022-10-20 06:44] LABS: Alveolar/Arterial O2 Gradient 80.4 mmHg; Base Excess ABG 7.1 mEq/l (+/-2.0); Carboxyhemoglobin 0.5 % THb (0-2.0); Fractional Inspired Oxygen 30 %; HCO3 ABG 32.4 mEq/l (22.0-26.0); Methemoglobin ABG 0.4 %THb (0-1.5); Oxygen Content ABG 12.5 %vol (16.0-22.0); Oxygen Saturation ABG 95.2 % (95.0-100.0); PCO2 ABG 49.9 mmHg (35.0-45.0); PO2 ABG 74.9 mmHg (80.0-100.0); Reduced Hemoglobin 6.1 %THb (0-5.0); Total Hemoglobin 9.5 g/dL (12.0-18.0)
[2022-10-20 06:46] LABS: Arterial Blood Gas Ventilator rate 18 /MIN; Device VENTILATOR; Modified Allen's Test Pass; Site Drawn RIGHT RADIAL
[2022-10-20 06:47] LABS: Arterial Blood Gas PEEP 5 cmH2O; Arterial Blood Gas Tidal Volume 400 ml; Arterial Blood Gas Vent Mode CMV
[2022-10-20] MEDS: CENTRAL LINE FLUSH 10 ML IV PUSH ×3 (06:47→20:01)
[2022-10-20 06:59] LABS: Glucose Point of Care 150 mg/dl (65-105)
--- NOTE | 2022-10-20 08:33 | P.PNINT_ITS ---
Progress Note: A&P Assessment and Plan (1) Acute on chronic respiratory failure with hypoxia and hypercapnia: Code(s): J96.21 - Acute and chronic respiratory failure with hypoxia; J96.22 - Acute and chronic respiratory failure with hypercapnia Status: Acute Assessment and Plan: Acute on chronic Respiratory failure secondary to COPD exacerbation and questionable pneumonia. Patient has baseline severe COPD and diastolic heart failure -10/04: Patient intubated blood the outside hospital, placed on mechanical ventilation and [facility] to [facility] ICU -10/10: extubated -10/05: Blood cultures negative x2 -10/04: MRSA culture negative -10/05: Sputum cultures negative -completed course of Solu-Medrol, Rocephin, and azithromycin 10/15 -reintubated. ABG reviewed. Increase tidal volume to 440 mL Chest x-ray Extensive right basilar pneumonia, unchanged. Underlying severe COPD with left upper lobe linear scarring. Support tubes, as above -chest x-ray suggest aspiration pneumonia -procalcitonin level elevated at 9.9 -repeat blood sputum cultures have been sent and are negative till now -urinalysis suggests UTI and urine culture is negative till now -continue Empiric Zosyn (10/15) -Continue bronchodilators 10/17: Failed weaning trial within minutes due to desaturation and high RSBI with increased work of breathing 10/18: Failed weaning trial immediately due to drop in saturation and tachypnea 10/19: Patient kept on light sedation to prevent anxiety during weaning trial. Patient was placed on PSV 10/5. While on pressure support patient states she felt short of breath and did not wanted to continue. Patient was placed back on CMV. I will start her on Precedex infusion weaning trial 10/20: Placed patient on ASV, will wean off propofol and increase Precedex infusion and did will place patient on SBT and evaluate for extubation (2) Aspiration pneumonia: Code(s): J69.0 - Pneumonitis due to inhalation of food and vomit Status: Acute Assessment and Plan: See above (3) UTI (urinary tract infection): Qualifiers: Urinary tract infection type: acute cystitis Hematuria presence: without hematuria Qualified Code(s): N30.00 - Acute cystitis without hematuria Code(s): N39.0 - Urinary tract infection, site not specified Status: Acute Assessment and Plan: -10/04: Urine cultures growing Klebs aerogenes ( Enterobacter) Completed a course of ceftriaxone but now on Zosyn (4) Heart failure with preserved ejection fraction: Qualifiers: Heart failure chronicity: unspecified Qualified Code(s): I50.30 - Unspecified diastolic (congestive) heart failure Code(s): I50.30 - Unspecified diastolic (congestive) heart failure Status: Acute Assessment and Plan: Echo 06/30/22 Summary ? 1. Complete two-dimensional, color flow and Doppler transthoracic echocardiogram is performed. ? 2. Left ventricular chamber dimension is normal. ? 3. Left ventricular systolic function is normal, estimated at 50-55%. ? 4. The left ventricular diastolic function is grade I diastolic dysfunction. ? 5. Right ventricular systolic function is normal. ? 6. There is mild aortic valve calcification. ? 7. The mitral valve annulus is mildly calcified. ? 8. The mitral valve has thickened leaflets. ? 9. There is trace mitral valve regurgitation. ? 10. There is mild tricuspid valve regurgitation. ? 11. There is mild aortic atherosclerosis. ? 12. Normal inferior vena cava with >50% collapse upon inspiration consistent with normal right atrial pressure, 3 mmHg. (5) Chronic obstruct
[2022-10-20] MEDS: polyethylene glycoL 3350 17 GM POWD.PACK PO ×2 (08:56→17:22)
[2022-10-20] MEDS: PANTOPRAZOLE SODIUM IV 40 MG VIAL IV PUSH ×2 (08:56→20:00)
[2022-10-20] MEDS: busPIRone HCL 5 MG TABLET 15 MG PO ×2 (08:56→20:01)
[2022-10-20] MEDS: GABAPENTIN 300 MG CAPSULE 600 MG PO ×3 (08:56→17:22)
[2022-10-20] MEDS: LACTULOSE 20 GM/30 ML UDC PO (08:56)
[2022-10-20] MEDS: VENLAFAXINE HCL XR 75 MG CAP.ER.24H 150 MG PO (08:56)
[2022-10-20] MEDS: DOCUSATE SODIUM LIQ 100 MG/10 ML UDC FEED TUBE (08:56)
[2022-10-20] MEDS: POTASSIUM CHLORIDE 20 MEQ PACKET (FOR LIQUID) 40 MEQ FEED TUBE (09:10)
--- NOTE | 2022-10-20 11:04 | PCNFU ---
Nutrition Follow-Up Complete: Inadequate energy intake related to NPO as evidenced by mechanical vent, need for full tube feeding. Goal: Tolerate tube feeding at goal rate Meet estimated energy requirements Pt current nutrition is Vital AF 1.2 at 50 ml/hr. Last recorded weight is 53.7 kg. Bowel Motility:+BM reported 10/20 Labs Reviewed:TG 172, Cr 0.3,Glu 141,Hct 23.4,Hgb 7.2,Na 135 Meds Noted:Miralax, Precedex, Propofol 12.24 ml/ns=138 kcals. Skin: WNL Additional Notes: Patient remains on mechanical vent. Tube feedings of Vital AF 1.2 at 50 ml/hr and tolerating per nursing. Nutrition provided 1644 kcals/83 gms protein/892 ml water. Flush 30 ml q 4hours. Patient is meeting 100% kcal at 30 kcal/kg and 100% protein needs at 1.6-1.8 gm/kg. Agree with diet orders. Monitoring tolerance, labs, weights, plan of care Follow daily in ICU rounds. Reassess Wednesday and Wednesday per policy
[2022-10-20 12:14] LABS: Glucose Point of Care 182 mg/dl (65-105)
--- NOTE | 2022-10-20 12:38 | WPDPN ---
Progress Note: A&P Assessment and Plan (1) Acute on chronic respiratory failure with hypoxia and hypercapnia: Code(s): J96.21 - Acute and chronic respiratory failure with hypoxia; J96.22 - Acute and chronic respiratory failure with hypercapnia Status: Acute Assessment and Plan: Acute on chronic Respiratory failure secondary to COPD exacerbation and questionable pneumonia. Patient has baseline severe COPD and diastolic heart failure -10/04: Patient intubated blood the outside hospital, placed on mechanical ventilation and transferred to [facility] ICU -Continue full mechanical ventilation support to prevent hypoxemia/hypercarbia and end organ damage. -Chest x-ray : Severe emphysema, -weaning steroids -Continue bronchodilators -Continue current empiric antibiotics Rocephin, and azithromycin (10/04) -vancomycin discontinued -10/05: Blood cultures obtained and pending 10/04: Urine culture growing Klebs aerogenes Patient was sedated with fentanyl propofol and Precedex. Sedation has been discontinued and planned for spontaneous breathing trial 10/10/2022: Extubated to nasal 10/11/2022: On 2 L nasal cannula. Will increase activity. Monitor 10/20/2022: interval history:? Feels well.? she is still weak however patient was able to participate in physical therapy and Walked with therapy earlier on 10/13, on 10/14? stated? does not feel well and feels tired, ? Mild cough.? Shortness of breath with exertion. on 10/15 after receiving duo neb patient became anxious and patient was given ativan without relief, and was unable to participate in PT not Eating well, states did not sleep well last night, will switch albuterol to xopenex, however later in the afternoon patient became more somolent, and slow to respond, on 10/15 discussed with dry folder cloth and patient was transferred to ICU and her respiratory symptoms worsen became hypoxic and patient was intubated, suspect 2/2 aspiration pnuemonia, today again? patient is given sadation holiday,? follows intstruction and weaning trial is given in anticipation of extubation and patient is tolerating, may extuabte today, patient is seen by dry folder cloth will follow and monitor. (2) UTI (urinary tract infection): Qualifiers: Urinary tract infection type: acute cystitis Hematuria presence: without hematuria Qualified Code(s): N30.00 - Acute cystitis without hematuria Code(s): N39.0 - Urinary tract infection, site not specified Status: Acute Assessment and Plan: -10/04: Urine cultures growing Klebs aerogenes ( Enterobacter) -continue ceftriaxone 2 ceftriaxone concludes today with total 7 days course (3) Heart failure with preserved ejection fraction: Qualifiers: Heart failure chronicity: unspecified Qualified Code(s): I50.30 - Unspecified diastolic (congestive) heart failure Code(s): I50.30 - Unspecified diastolic (congestive) heart failure Status: Acute Assessment and Plan: Echo 06/30/22 Summary ? 1. Complete two-dimensional, color flow and Doppler transthoracic echocardiogram is performed. ? 2. Left ventricular chamber dimension is normal. ? 3. Left ventricular systolic function is normal, estimated at 50-55%. ? 4. The left ventricular diastolic function is grade I diastolic dysfunction. ? 5. Right ventricular systolic function is normal. ? 6. There is mild aortic valve calcification. ? 7. The mitral valve annulus is mildly calcified. ? 8. The mitral valve has thickened leaflets. ? 9. There is trace mitral valve regurgitation. ? 10. There is mild tricuspid valve regurgitation. ? 11. There is mild aortic atherosclerosis. ? 12. Normal inferior vena cava with >50% collapse upon inspiration consistent with normal right atrial pressure, 3 mmHg. (4) Chronic obstructive pulmonary disease: Code(s): J44.9 - Chronic obstructive pulmonary disease, unspecified Status: Acute Assessment and Plan: See above (5) Pneumonia:
[2022-10-20] MEDS: dexmedeTOMIDine 400 MCG/100 ML 400 MCG/100 ML BAG 9.1 MCG IV CONT (13:00)
[2022-10-20] MEDS: PROPOFOL IV EMULSION 100 ML 10.73 MG IV CONT (13:00)
[2022-10-20 17:59] LABS: Glucose Point of Care 182 mg/dl (65-105)
[2022-10-20] MEDS: MINERAL OIL/WHITE PETROLATUM OINTMENT 1 APPLIC EACH EYE (20:00)
[2022-10-20] MEDS: MONTELUKAST SODIUM 10 MG TABLET PO (20:01)
[2022-10-20] MEDS: dexmedeTOMIDine 400 MCG/100 ML 400 MCG/100 ML BAG 14.3 MCG IV CONT (21:27)
[2022-10-20] MEDS: PROPOFOL IV EMULSION 100 ML 7.67 MG IV CONT (22:35)
[2022-10-21] VITALS (27 sets, daily range): BP systolic 91–161; BP diastolic 68–90; PULSE 83–118; RESP 11–22; TEMP 35.7–37.8; O2SAT 93–100
[2022-10-21 00:33] LABS: Glucose Point of Care 198 mg/dl (65-105)
[2022-10-21] MEDS: IPRATROPIUM BR 0.02% INH SOLN 0.5 MG/2.5 ML VIAL INHALATION ×4 (02:10→20:30)
[2022-10-21] MEDS: LEVALBUTEROL NEB 1.25 MG/3 ML 0.63 MG INHALATION ×4 (02:10→20:30)
[2022-10-21] MEDS: dexmedeTOMIDine 400 MCG/100 ML 400 MCG/100 ML BAG 15.6 MCG IV CONT (04:00)
[2022-10-21] MEDS: PIPERACILLIN/TAZOBACTAM SOD 4.5 GM in SODIUM CHLORIDE 0.9% IV 100 ML 200 ML IVPB ×4 (04:01→20:15)
[2022-10-21 05:06] LABS: Basophils Absolute Auto 0.1 K/mm3 (0.0-0.1); Basophils Percent Auto 0.5 % (0.2-1.2); Eosinophils Absolute Auto 0.1 K/mm3 (0-0.3); Eosinophils Percent Auto 0.9 % (0-4.4); Hemoglobin 7.2 g/dL (12.0-15.0); Immature Granulocyte Absolute 0.06 K/mm3 (0.00-0.031); Immature Granulocyte Percent A 0.6 % (0-0.5); Lymphocytes Absolute Auto 0.88 K/mm3 (0.9-3.2); Lymphocytes Percent Auto 8.1 % (18.3-44.2); Mean Corpuscular HGB Conc 31.3 g/dl (32-36); Mean Corpuscular Hemoglobin 29.9 pg (26-34); Mean Corpuscular Volume 95.4 fl (80-100); Mean Platelet Volume 10.8 fl (7.4-10.4); Monocytes Absolute Auto 1.1 K/mm3 (0.1-0.6); Monocytes Percent Auto 10.4 % (2.6-8.5); Neutrophils Absolute Auto 8.7 K/mm3 (1.3-6.7); Neutrophils Percent Auto 79.5 % (45.5-73.1); Platelet Count Result 238 k/mm3 (150-375); Red Blood Count 2.41 M/mm3 (4.2-5.4); Red Cell Distribution Width 14.2 % (11.5-14.5); White Blood Count 10.9 K/mm3 (4.5-10.0)
[2022-10-21 05:17] LABS: Anion Gap 2 mmol/L (8-16); Blood Urea Nitrogen 11 mg/dL (7-17); Carbon Dioxide 38 mmol/L (22-30); Chloride 96 mmol/L (98-107); Estimated CRCL calculation 126 ml/min; Estimated Glomerular Filt Rate > 60; Glucose 163 mg/dL (65-110); Magnesium 2.1 mg/dL (1.6-2.3); Phosphorus 5.1 mg/dL (2.5-4.5); Potassium 3.9 mmol/L (3.4-5.0); Sodium 136 mmol/L (137-145)
[2022-10-21] MEDS: CENTRAL LINE FLUSH 10 ML IV PUSH ×3 (05:23→21:45)
[2022-10-21 05:41] LABS: Alveolar/Arterial O2 Gradient 68.3 mmHg; Base Excess ABG 8.7 mEq/l (+/-2.0); Carboxyhemoglobin 0.2 % THb (0-2.0); Device VENTILATOR; Fractional Inspired Oxygen 30 %; Methemoglobin ABG 0.4 %THb (0-1.5); Modified Allen's Test Pass; Oxygen Saturation ABG 96.4 % (95.0-100.0); Oxyhemoglobin 94.6 % THb (90.0-100.0); PCO2 ABG 52.4 mmHg (35.0-45.0); Reduced Hemoglobin 4.8 %THb (0-5.0); Site Drawn RIGHT RADIAL; Total Hemoglobin 8.2 g/dL (12.0-18.0)
[2022-10-21 05:42] LABS: Arterial Blood Gas PEEP 5 cmH2O; Arterial Blood Gas Tidal Volume 400 ml; Arterial Blood Gas Vent Mode CMV; Arterial Blood Gas Ventilator rate 18 /MIN
[2022-10-21] MEDS: GABAPENTIN 300 MG CAPSULE 600 MG PO (08:05)
[2022-10-21] MEDS: LACTULOSE 20 GM/30 ML UDC PO (08:05)
[2022-10-21] MEDS: DOCUSATE SODIUM LIQ 100 MG/10 ML UDC FEED TUBE (08:05)
[2022-10-21] MEDS: polyethylene glycoL 3350 17 GM POWD.PACK PO (08:05)
[2022-10-21] MEDS: IRON SUCROSE COMPLEX 200 MG in SODIUM CHLORIDE 0.9% IV 50 ML 120 MG IVPB (08:06)
[2022-10-21] MEDS: ALPRAZolam (*CRX) 0.5 MG TABLET PO ×3 (08:06→21:44)
[2022-10-21] MEDS: MINERAL OIL/WHITE PETROLATUM OINTMENT 1 APPLIC EACH EYE (08:07)
[2022-10-21] MEDS: PANTOPRAZOLE SODIUM IV 40 MG VIAL IV PUSH ×2 (08:07→20:16)
[2022-10-21] MEDS: busPIRone HCL 5 MG TABLET 15 MG PO ×2 (08:08→20:16)
[2022-10-21] MEDS: VENLAFAXINE HCL XR 75 MG CAP.ER.24H 150 MG PO (08:08)
[2022-10-21] MEDS: dexmedeTOMIDine 400 MCG/100 ML 400 MCG/100 ML BAG 13 MCG IV CONT (10:33)
--- NOTE | 2022-10-21 10:55 | PCFNICU ---
ICU Rounding Note: Pt current nutrition is Rose AF 1.2 at 50 ml/hr. Last recorded weight is 49 kg up from 43 kg on admit. Bowel Motility:+Bm reported 10/20 Labs Reviewed:Glu 163, Cr 0.3,Na 136, Hct 23.0,Hgb 7.2 Meds Noted:Miralax, Propofol 6.13 ml/en=018 kcals, Precedex, Protonix Skin:WNL Additional Notes: Patient remains on mechanical vent. Tolerating tube feedings of Vital AF 1.2 at 50 ml/hr. Total nutrition: 1482 kcals/83 gm protein/892 ml water. Flush 30 ml q 4 hours. Agree with diet orders. Following daily in ICU rounds. Monitoring tolerance, labs, weights, plan of care. Reassess Wednesday and Wednesday per policy .
--- NOTE | 2022-10-21 11:11 | WPDINTPN ---
Progress Note: A&P Assessment and Plan (1) Acute on chronic respiratory failure with hypoxia and hypercapnia: Code(s): J96.21 - Acute and chronic respiratory failure with hypoxia; J96.22 - Acute and chronic respiratory failure with hypercapnia Status: Acute Assessment and Plan: Acute on chronic Respiratory failure secondary to COPD exacerbation and questionable pneumonia. Patient has baseline severe COPD and diastolic heart failure -10/04: Patient intubated blood the outside hospital, placed on mechanical ventilation and transferred to [facility] ICU -10/10: extubated -10/05: Blood cultures negative x2 -10/04: MRSA culture negative -10/05: Sputum cultures negative -completed course of Solu-Medrol, Rocephin, and azithromycin 10/15 -reintubated. ABG reviewed. Increase tidal volume to 440 mL Chest x-ray Extensive right basilar pneumonia, unchanged. Underlying severe COPD with left upper lobe linear scarring. Support tubes, as above -chest x-ray suggest aspiration pneumonia -procalcitonin level elevated at 9.9 -repeat blood sputum cultures have been sent and are negative till now -urinalysis suggests UTI and urine culture is negative till now -continue Empiric Zosyn (10/15) -Continue bronchodilators 10/17: Failed weaning trial within minutes due to desaturation and high RSBI with increased work of breathing 10/18: Failed weaning trial immediately due to drop in saturation and tachypnea 10/19: Patient kept on light sedation to prevent anxiety during weaning trial. Patient was placed on PSV 10/5. While on pressure support patient states she felt short of breath and did not wanted to continue. Patient was placed back on CMV. I will start her on Precedex infusion weaning trial 10/20: Placed patient on ASV, will wean off propofol and increase Precedex infusion and did will place patient on SBT and evaluate for extubation 10/21: Will place patient on weaning trial and evaluate for extubation, hold tube feeds (2) Aspiration pneumonia: Code(s): J69.0 - Pneumonitis due to inhalation of food and vomit Status: Acute Assessment and Plan: See above (3) UTI (urinary tract infection): Qualifiers: Urinary tract infection type: acute cystitis Hematuria presence: without hematuria Qualified Code(s): N30.00 - Acute cystitis without hematuria Code(s): N39.0 - Urinary tract infection, site not specified Status: Acute Assessment and Plan: -10/04: Urine cultures growing Klebs aerogenes ( Enterobacter) Completed a course of ceftriaxone but now on Zosyn (4) Heart failure with preserved ejection fraction: Qualifiers: Heart failure chronicity: unspecified Qualified Code(s): I50.30 - Unspecified diastolic (congestive) heart failure Code(s): I50.30 - Unspecified diastolic (congestive) heart failure Status: Acute Assessment and Plan: Echo 06/30/22 Summary ? 1. Complete two-dimensional, color flow and Doppler transthoracic echocardiogram is performed. ? 2. Left ventricular chamber dimension is normal. ? 3. Left ventricular systolic function is normal, estimated at 50-55%. ? 4. The left ventricular diastolic function is grade I diastolic dysfunction. ? 5. Right ventricular systolic function is normal. ? 6. There is mild aortic valve calcification. ? 7. The mitral valve annulus is mildly calcified. ? 8. The mitral valve has thickened leaflets. ? 9. There is trace mitral valve regurgitation. ? 10. There is mild tricuspid valve regurgitation. ? 11. There is mild aortic atherosclerosis. ? 12. Normal inferior vena cava with >50% collapse upon inspiration consistent with normal right atrial pressure, 3 mmHg. (5) Chronic obstructive pulmonary disease: Code(s): J44.9 - Chronic obstructive pulmonary disease, unspecified Status: Acute Assessment and Plan: Continue bronchodilators and supplemental oxygen (6) Pneumonia: Code(s): J18
[2022-10-21 11:45] LABS: Glucose Point of Care 150 mg/dl (65-105)
[2022-10-21 11:51] LABS: Alveolar/Arterial O2 Gradient 64.5 mmHg; Base Excess ABG 9.7 mEq/l (+/-2.0); Fractional Inspired Oxygen 30 %; Oxygen Content ABG 11.4 %vol (16.0-22.0); Oxyhemoglobin 93.1 % THb (90.0-100.0); PO2 ABG 77.8 mmHg (80.0-100.0); PO2 FiO2 Ratio Arterial Blood 2.59 %; Total Hemoglobin 8.6 g/dL (12.0-18.0)
[2022-10-21 11:52] LABS: Modified Allen's Test Pass; PCO2 ABG 60.9 mmHg (35.0-45.0); Site Drawn RIGHT RADIAL
[2022-10-21 11:53] LABS: Arterial Blood Gas PEEP 5 cmH2O; Arterial Blood Gas Vent Mode SPONTANEOUS; Device VENTILATOR
[2022-10-21 11:54] LABS: Arterial Blood Gas Pressure Support 8 cmH2O
[2022-10-21] MEDS: METOPROLOL TARTRATE INJ 5 MG/5 ML VIAL IV PUSH (14:06)
--- NOTE | 2022-10-21 15:13 | WPDPN ---
Progress Note: A&P Assessment and Plan (1) Acute on chronic respiratory failure with hypoxia and hypercapnia: Code(s): J96.21 - Acute and chronic respiratory failure with hypoxia; J96.22 - Acute and chronic respiratory failure with hypercapnia Status: Acute Assessment and Plan: Acute on chronic Respiratory failure secondary to COPD exacerbation and questionable pneumonia. Patient has baseline severe COPD and diastolic heart failure -10/04: Patient intubated blood the outside hospital, placed on mechanical ventilation and transferred to [facility] ICU -Continue full mechanical ventilation support to prevent hypoxemia/hypercarbia and end organ damage. -Chest x-ray : Severe emphysema, -weaning steroids -Continue bronchodilators -Continue current empiric antibiotics Rocephin, and azithromycin (10/04) -vancomycin discontinued -10/05: Blood cultures obtained and pending 10/04: Urine culture growing Klebs aerogenes Patient was sedated with fentanyl propofol and Precedex. Sedation has been discontinued and planned for spontaneous breathing trial 10/10/2022: Extubated to nasal 10/11/2022: On 2 L nasal cannula. Will increase activity. Monitor 10/21/2022: interval history:? Feels well.? she is still weak however patient was able to participate in physical therapy and Walked with therapy earlier on 10/13, on 10/14? stated? does not feel well and feels tired, ? Mild cough.? Shortness of breath with exertion. on 10/15 after receiving duo neb patient became anxious and patient was given ativan without relief, and was unable to participate in PT not Eating well, states did not sleep well last night, will switch albuterol to xopenex, however later in the afternoon patient became more somolent, and slow to respond, on 10/15 discussed with mdm sr and patient was transferred to ICU and her respiratory symptoms worsen became hypoxic and patient was intubated, suspect 2/2 aspiration pnuemonia, today again? patient is given sadation holiday,? follows intstruction and weaning trial is given again in anticipation of extubation and patient is not tolerating, patient may need trech, patient is seen by mdm sr will follow and monitor. (2) UTI (urinary tract infection): Qualifiers: Urinary tract infection type: acute cystitis Hematuria presence: without hematuria Qualified Code(s): N30.00 - Acute cystitis without hematuria Code(s): N39.0 - Urinary tract infection, site not specified Status: Acute Assessment and Plan: -10/04: Urine cultures growing Klebs aerogenes ( Enterobacter) -continue ceftriaxone 2 ceftriaxone concludes today with total 7 days course (3) Heart failure with preserved ejection fraction: Qualifiers: Heart failure chronicity: unspecified Qualified Code(s): I50.30 - Unspecified diastolic (congestive) heart failure Code(s): I50.30 - Unspecified diastolic (congestive) heart failure Status: Acute Assessment and Plan: Echo 06/30/22 Summary ? 1. Complete two-dimensional, color flow and Doppler transthoracic echocardiogram is performed. ? 2. Left ventricular chamber dimension is normal. ? 3. Left ventricular systolic function is normal, estimated at 50-55%. ? 4. The left ventricular diastolic function is grade I diastolic dysfunction. ? 5. Right ventricular systolic function is normal. ? 6. There is mild aortic valve calcification. ? 7. The mitral valve annulus is mildly calcified. ? 8. The mitral valve has thickened leaflets. ? 9. There is trace mitral valve regurgitation. ? 10. There is mild tricuspid valve regurgitation. ? 11. There is mild aortic atherosclerosis. ? 12. Normal inferior vena cava with >50% collapse upon inspiration consistent with normal right atrial pressure, 3 mmHg. (4) Chronic obstructive pulmonary disease: Code(s): J44.9 - Chronic obstructive pulmonary disease, unspecified Status: Acute Assessment and Plan: See above (
[2022-10-21 17:05] LABS: Glucose Point of Care 112 mg/dl (65-105)
[2022-10-21] MEDS: HYDROcodone/acetaminophen (*CRX) 7.5-325 MG TABLET 1 TAB FEED TUBE (19:33)
[2022-10-21] MEDS: MONTELUKAST SODIUM 10 MG TABLET PO (20:17)
[2022-10-21] MEDS: FLUTICASONE/SALMETEROL 115-21 MCG INHALER 1 PUFF 2 PUFF INHALATION (20:30)
[2022-10-21 20:44] LABS: IFOB Positive Control Positive; Immunochemical Fecal Occult Bl Negative (N)
[2022-10-22] VITALS (20 sets, daily range): BP systolic 114–151; BP diastolic 70–108; PULSE 96–114; RESP 14–26; TEMP 35.8–36.8; O2SAT 90–100
[2022-10-22 00:30] LABS: Glucose Point of Care 118 mg/dl (65-105)
[2022-10-22] MEDS: HYDROcodone/acetaminophen (*CRX) 7.5-325 MG TABLET 1 TAB FEED TUBE ×3 (02:12→20:15)
[2022-10-22] MEDS: LEVALBUTEROL NEB 1.25 MG/3 ML 0.63 MG INHALATION ×4 (02:57→20:21)
[2022-10-22] MEDS: IPRATROPIUM BR 0.02% INH SOLN 0.5 MG/2.5 ML VIAL INHALATION ×4 (02:58→20:20)
[2022-10-22] MEDS: PIPERACILLIN/TAZOBACTAM SOD 4.5 GM in SODIUM CHLORIDE 0.9% IV 100 ML 200 ML IVPB ×3 (04:22→16:29)
[2022-10-22 04:58] LABS: Hematocrit 28.6 % (37.0-47.0); Hemoglobin 8.7 g/dL (12.0-15.0); Mean Corpuscular HGB Conc 30.4 g/dl (32-36); Mean Corpuscular Hemoglobin 29.3 pg (26-34); Mean Corpuscular Volume 96.3 fl (80-100); Mean Platelet Volume 10.1 fl (7.4-10.4); Platelet Count Result 328 k/mm3 (150-375); Red Blood Count 2.97 M/mm3 (4.2-5.4); Red Cell Distribution Width 14.1 % (11.5-14.5); White Blood Count 10.2 K/mm3 (4.5-10.0)
[2022-10-22] MEDS: ALPRAZolam (*CRX) 0.5 MG TABLET PO ×3 (05:16→21:02)
[2022-10-22] MEDS: CENTRAL LINE FLUSH 10 ML IV PUSH ×3 (05:31→21:02)
[2022-10-22 05:38] LABS: Blood Urea Nitrogen 13 mg/dL (7-17); Calcium 8.3 mg/dL (8.4-10.2); Carbon Dioxide > 40 mmol/L (22-30); Chloride 95 mmol/L (98-107); Estimated CRCL calculation 125 ml/min; Estimated Glomerular Filt Rate > 60; Glucose 86 mg/dL (65-110); Magnesium 2.1 mg/dL (1.6-2.3); Phosphorus 4.1 mg/dL (2.5-4.5); Potassium 3.9 mmol/L (3.4-5.0); Sodium 134 mmol/L (137-145); Triglycerides 168 mg/dL (<150)
[2022-10-22] MEDS: FLUTICASONE/SALMETEROL 115-21 MCG INHALER 1 PUFF 2 PUFF INHALATION ×2 (07:39→20:21)
[2022-10-22] MEDS: busPIRone HCL 5 MG TABLET 15 MG PO ×2 (08:57→20:00)
[2022-10-22] MEDS: VENLAFAXINE HCL XR 75 MG CAP.ER.24H 150 MG PO (08:57)
[2022-10-22] MEDS: PANTOPRAZOLE SODIUM IV 40 MG VIAL IV PUSH ×2 (08:58→19:59)
[2022-10-22] MEDS: GABAPENTIN 300 MG CAPSULE 600 MG PO ×3 (08:58→17:29)
[2022-10-22] MEDS: FLUTICASONE PROPIONATE 0.05% NA SPR 16 GM BTL (*BKC) 2 SPRAY NASAL (08:59)
--- NOTE | 2022-10-22 09:08 | WPDINTPN ---
Progress Note: A&P Assessment and Plan (1) Acute on chronic respiratory failure with hypoxia and hypercapnia: Code(s): J96.21 - Acute and chronic respiratory failure with hypoxia; J96.22 - Acute and chronic respiratory failure with hypercapnia Status: Acute Assessment and Plan: Acute on chronic Respiratory failure secondary to COPD exacerbation and questionable pneumonia. Patient has baseline severe COPD and diastolic heart failure -10/04: Patient intubated blood the outside hospital, placed on mechanical ventilation and transferred to [facility] ICU -10/10: extubated -10/05: Blood cultures negative x2 -10/04: MRSA culture negative -10/05: Sputum cultures negative -completed course of Solu-Medrol, Rocephin, and azithromycin 10/15 -reintubated. ABG reviewed. Increase tidal volume to 440 mL Chest x-ray Extensive right basilar pneumonia, unchanged. Underlying severe COPD with left upper lobe linear scarring. Support tubes, as above -chest x-ray suggest aspiration pneumonia -procalcitonin level elevated at 9.9 -repeat blood sputum cultures have been sent and are negative till now -urinalysis suggests UTI and urine culture is negative till now -continue Empiric Zosyn (10/15) -Continue bronchodilators 10/21: Extubated -currently on 2 L nasal cannula (2) Aspiration pneumonia: Code(s): J69.0 - Pneumonitis due to inhalation of food and vomit Status: Acute Assessment and Plan: See above (3) UTI (urinary tract infection): Qualifiers: Urinary tract infection type: acute cystitis Hematuria presence: without hematuria Qualified Code(s): N30.00 - Acute cystitis without hematuria Code(s): N39.0 - Urinary tract infection, site not specified Status: Acute Assessment and Plan: -10/04: Urine cultures growing Klebs aerogenes ( Enterobacter) Completed a course of ceftriaxone but now on Zosyn (4) Heart failure with preserved ejection fraction: Qualifiers: Heart failure chronicity: unspecified Qualified Code(s): I50.30 - Unspecified diastolic (congestive) heart failure Code(s): I50.30 - Unspecified diastolic (congestive) heart failure Status: Acute Assessment and Plan: Echo 06/30/22 Summary ? 1. Complete two-dimensional, color flow and Doppler transthoracic echocardiogram is performed. ? 2. Left ventricular chamber dimension is normal. ? 3. Left ventricular systolic function is normal, estimated at 50-55%. ? 4. The left ventricular diastolic function is grade I diastolic dysfunction. ? 5. Right ventricular systolic function is normal. ? 6. There is mild aortic valve calcification. ? 7. The mitral valve annulus is mildly calcified. ? 8. The mitral valve has thickened leaflets. ? 9. There is trace mitral valve regurgitation. ? 10. There is mild tricuspid valve regurgitation. ? 11. There is mild aortic atherosclerosis. ? 12. Normal inferior vena cava with >50% collapse upon inspiration consistent with normal right atrial pressure, 3 mmHg. (5) Chronic obstructive pulmonary disease: Code(s): J44.9 - Chronic obstructive pulmonary disease, unspecified Status: Acute Assessment and Plan: Continue bronchodilators and supplemental oxygen (6) Pneumonia: Code(s): J18.9 - Pneumonia, unspecified organism Status: Acute Assessment and Plan: See above (7) History of pulmonary embolus (PE): Code(s): Z86.711 - Personal history of pulmonary embolism Status: Acute Assessment and Plan: apixaban on hold due to low hemoglobin (8) Electrolyte abnormality: Code(s): E87.8 - Other disorders of electrolyte and fluid balance, not elsewhere classified Status: Acute Assessment and Plan: Corrected calcium was normal -will give additional potassium chloride (9) Anemia: Code(s): D64.9 - Anemia, unspecified Status: Acute Assessment and Plan: Patient does have his
[2022-10-22] MEDS: UMECLIDINIUM BROMIDE 62.5 MCG ELLIPTA 1 PUFF INHALATION (09:53)
--- NOTE | 2022-10-22 10:05 | PCSTNOTE ---
Please refer to the Bedside Swallow Evaluation in the EMR. Please note, silent aspiration cannot be ruled out at bedside.
[2022-10-22 11:52] LABS: Glucose Point of Care 128 mg/dl (65-105)
--- NOTE | 2022-10-22 12:08 | PCFNICU ---
ICU Rounding Note: Pt current nutrition is Minced and Moist, Level 5 with Moderately Thick liquids, Level 3 Last recorded weight is 48.8 kg. Bowel Motility: +BM reported 10/22 Labs Reviewed:TG 168,Na 134, Hct 28.6,Hgb 8.7 Meds Noted:Lilly, Zanax Skin:WNL Additional Notes:patient had bedside swallow today recommending Minced and Moist, Level 5 with Moderately thick liquids, Level 3. Recommend Ensure Enlive BID providing an additional 350 kcals and 20 gms protein. Agree with diet orders. Following daily in ICU rounds. Monitoring tolerance, labs, weights, plan of care. Reassess every 3 days. .
--- NOTE | 2022-10-22 14:42 | WPDPN ---
Progress Note: A&P Assessment and Plan (1) Acute on chronic respiratory failure with hypoxia and hypercapnia: Code(s): J96.21 - Acute and chronic respiratory failure with hypoxia; J96.22 - Acute and chronic respiratory failure with hypercapnia Status: Acute Assessment and Plan: Acute on chronic Respiratory failure secondary to COPD exacerbation and questionable pneumonia. Patient has baseline severe COPD and diastolic heart failure -10/04: Patient intubated blood the outside hospital, placed on mechanical ventilation and transferred to [facility] ICU -Continue full mechanical ventilation support to prevent hypoxemia/hypercarbia and end organ damage. -Chest x-ray : Severe emphysema, -weaning steroids -Continue bronchodilators -Continue current empiric antibiotics Rocephin, and azithromycin (10/04) -vancomycin discontinued -10/05: Blood cultures obtained and pending 10/04: Urine culture growing Klebs aerogenes Patient was sedated with fentanyl propofol and Precedex. Sedation has been discontinued and planned for spontaneous breathing trial 10/10/2022: Extubated to nasal 10/11/2022: On 2 L nasal cannula. Will increase activity. Monitor 10/22/2022: interval history:? Feels well.? she is still weak however patient was able to participate in physical therapy and Walked with therapy earlier on 10/13, on 10/14? stated? does not feel well and feels tired, ? Mild cough.? Shortness of breath with exertion. on 10/15 after receiving duo neb patient became anxious and patient was given ativan without relief, and was unable to participate in PT not Eating well, states did not sleep well last night, will switch albuterol to xopenex, however later in the afternoon patient became more somolent, and slow to respond, on 10/15 discussed with ball worker and patient was transferred to ICU and her respiratory symptoms worsen became hypoxic and patient was intubated, suspect 2/2 aspiration pnuemonia, patient is treated with zosyn, today again? patient is given sadation holiday, follows intstruction and weaning trial was given patient was able tolerate and extubated, patient is clinically improving will transfer patient out of ICU and will continue to monitor. (2) UTI (urinary tract infection): Qualifiers: Urinary tract infection type: acute cystitis Hematuria presence: without hematuria Qualified Code(s): N30.00 - Acute cystitis without hematuria Code(s): N39.0 - Urinary tract infection, site not specified Status: Acute Assessment and Plan: -10/04: Urine cultures growing Klebs aerogenes ( Enterobacter) -continue ceftriaxone 2 ceftriaxone concludes today with total 7 days course (3) Heart failure with preserved ejection fraction: Qualifiers: Heart failure chronicity: unspecified Qualified Code(s): I50.30 - Unspecified diastolic (congestive) heart failure Code(s): I50.30 - Unspecified diastolic (congestive) heart failure Status: Acute Assessment and Plan: Echo 06/30/22 Summary ? 1. Complete two-dimensional, color flow and Doppler transthoracic echocardiogram is performed. ? 2. Left ventricular chamber dimension is normal. ? 3. Left ventricular systolic function is normal, estimated at 50-55%. ? 4. The left ventricular diastolic function is grade I diastolic dysfunction. ? 5. Right ventricular systolic function is normal. ? 6. There is mild aortic valve calcification. ? 7. The mitral valve annulus is mildly calcified. ? 8. The mitral valve has thickened leaflets. ? 9. There is trace mitral valve regurgitation. ? 10. There is mild tricuspid valve regurgitation. ? 11. There is mild aortic atherosclerosis. ? 12. Normal inferior vena cava with >50% collapse upon inspiration consistent with normal right atrial pressure, 3 mmHg. (4) Chronic obstructive pulmonary disease: Code(s): J44.9 - Chronic obstructive pulmonary disease, unspecified Status: Acute Assessment an
--- NOTE | 2022-10-22 16:58 | PCPTNOTE ---
On 10/22/22, the student, [Sophy Ceron], provided care and completed [facility] documentation on this patient. I have reviewed the student's documentation and agree with the findings.
[2022-10-22 17:45] LABS: Glucose Point of Care 177 mg/dl (65-105)
[2022-10-22] MEDS: MONTELUKAST SODIUM 10 MG TABLET PO (19:59)
[2022-10-22] MEDS: INSULIN ASPART (*BKC) 100 UNITS/ML SUB-Q (23:43)
[2022-10-22 23:49] LABS: Glucose Point of Care 214 mg/dl (65-105)
[2022-10-23] VITALS (18 sets, daily range): BP systolic 117–156; BP diastolic 74–98; PULSE 87–125; RESP 12–22; TEMP 36–36.9; O2SAT 94–100
[2022-10-23] MEDS: HYDROcodone/acetaminophen (*CRX) 7.5-325 MG TABLET 1 TAB FEED TUBE ×3 (01:50→19:12)
[2022-10-23] MEDS: LEVALBUTEROL NEB 1.25 MG/3 ML 0.63 MG INHALATION ×4 (02:10→20:46)
[2022-10-23] MEDS: IPRATROPIUM BR 0.02% INH SOLN 0.5 MG/2.5 ML VIAL INHALATION ×4 (02:10→20:46)
[2022-10-23 04:41] LABS: Basophils Absolute Auto 0.1 K/mm3 (0.0-0.1); Basophils Percent Auto 1.1 % (0.2-1.2); Eosinophils Absolute Auto 0.2 K/mm3 (0-0.3); Eosinophils Percent Auto 2.4 % (0-4.4); Hematocrit 34.8 % (37.0-47.0); Hemoglobin 10.3 g/dL (12.0-15.0); Immature Granulocyte Absolute 0.03 K/mm3 (0.00-0.031); Immature Granulocyte Percent A 0.5 % (0-0.5); Lymphocytes Absolute Auto 1.42 K/mm3 (0.9-3.2); Lymphocytes Percent Auto 21.4 % (18.3-44.2); Mean Corpuscular HGB Conc 29.6 g/dl (32-36); Mean Corpuscular Hemoglobin 29.1 pg (26-34); Mean Corpuscular Volume 98.3 fl (80-100); Mean Platelet Volume 9.6 fl (7.4-10.4); Monocytes Absolute Auto 0.6 K/mm3 (0.1-0.6); Monocytes Percent Auto 8.7 % (2.6-8.5); Neutrophils Absolute Auto 4.4 K/mm3 (1.3-6.7); Neutrophils Percent Auto 65.9 % (45.5-73.1); Platelet Count Result 491 k/mm3 (150-375); Red Blood Count 3.54 M/mm3 (4.2-5.4); Red Cell Distribution Width 13.8 % (11.5-14.5); White Blood Count 6.7 K/mm3 (4.5-10.0)
[2022-10-23 04:50] LABS: Blood Urea Nitrogen 10 mg/dL (7-17); Calcium 8.6 mg/dL (8.4-10.2); Carbon Dioxide > 40 mmol/L (22-30); Chloride 92 mmol/L (98-107); Estimated CRCL calculation 125 ml/min; Estimated Glomerular Filt Rate > 60; Glucose 98 mg/dL (65-110); Magnesium 2.3 mg/dL (1.6-2.3); Potassium 4.2 mmol/L (3.4-5.0); Sodium 134 mmol/L (137-145)
[2022-10-23] MEDS: ALPRAZolam (*CRX) 0.5 MG TABLET PO ×2 (05:13→13:54)
[2022-10-23] MEDS: CENTRAL LINE FLUSH 10 ML IV PUSH ×2 (05:14→13:54)
[2022-10-23] MEDS: FLUTICASONE/SALMETEROL 115-21 MCG INHALER 1 PUFF 2 PUFF INHALATION ×2 (08:04→20:46)
[2022-10-23] MEDS: UMECLIDINIUM BROMIDE 62.5 MCG ELLIPTA 1 PUFF INHALATION (08:07)
[2022-10-23] MEDS: GABAPENTIN 300 MG CAPSULE 600 MG PO ×3 (08:49→17:23)
[2022-10-23] MEDS: busPIRone HCL 5 MG TABLET 15 MG PO ×2 (08:49→21:05)
[2022-10-23] MEDS: VENLAFAXINE HCL XR 75 MG CAP.ER.24H 150 MG PO (08:49)
[2022-10-23] MEDS: PANTOPRAZOLE SODIUM IV 40 MG VIAL IV PUSH ×2 (08:50→21:08)
[2022-10-23] MEDS: FLUTICASONE PROPIONATE 0.05% NA SPR 16 GM BTL (*BKC) 2 SPRAY NASAL (08:50)
--- NOTE | 2022-10-23 11:17 | PCNFU ---
Nutrition Follow-Up Complete: Inadequate energy intake related to NPO as evidenced by mechanical vent, need for full tube feeding. goal:Meet estimated energy requirements Patient is progressing towards goal. We will continue current goal. Pt current nutrition is Minced and Moist,Level 5 with Moderately thick liquids, Level 3. Last recorded weight is 48.8 kg. Bowel Motility:+BM reported 10/22 Labs Reviewed:BUN 0.3,Na 134, Hct 34.8 Meds Noted:Protonix Skin: WNL Additional Notes: Patient is tolerating Minced and Moist, Level 5 with Moderately Thick liquids, Level 3. Oral Intake has been 40-50% of meals. She is drinking diet supplements of EnlVivolux providing an additional 350 kcals and 20 gms protein. Agree with diet orders at this time. Monitoring tolerance, labs, weights, plan of care every 3 days.
[2022-10-23 11:23] LABS: Glucose Point of Care 214 mg/dl (65-105)
[2022-10-23 17:25] LABS: Glucose Point of Care 124 mg/dl (65-105)
--- NOTE | 2022-10-23 17:39 | PC.NURSE ---
1730-Pt. had 3 bags in the safe in ICU that I walked up to 3rd floor. I handed them off to Kaila.
--- NOTE | 2022-10-23 17:55 | PM.IMPN ---
Progress Note: A&P Assessment and Plan (1) Acute on chronic respiratory failure with hypoxia and hypercapnia: Code(s): J96.21 - Acute and chronic respiratory failure with hypoxia; J96.22 - Acute and chronic respiratory failure with hypercapnia Status: Acute Assessment and Plan: Acute on chronic Respiratory failure secondary to COPD exacerbation and questionable pneumonia. Patient has baseline severe COPD and diastolic heart failure -10/04: Patient intubated blood the outside hospital, placed on mechanical ventilation and transferred to [facility] ICU -Continue full mechanical ventilation support to prevent hypoxemia/hypercarbia and end organ damage. -Chest x-ray : Severe emphysema, -weaning steroids -Continue bronchodilators -Continue current empiric antibiotics Rocephin, and azithromycin (10/04) -vancomycin discontinued -10/05: Blood cultures obtained and pending 10/04: Urine culture growing Klebs aerogenes Patient was sedated with fentanyl propofol and Precedex. Sedation has been discontinued and planned for spontaneous breathing trial 10/10/2022: Extubated to nasal 10/11/2022: On 2 L nasal cannula. Will increase activity. Monitor 10/22/2022: interval history:? Feels well.? she is still weak however patient was able to participate in physical therapy and Walked with therapy earlier on 10/13, on 10/14? stated? does not feel well and feels tired, ? Mild cough.? Shortness of breath with exertion. on 10/15 after receiving duo neb patient became anxious and patient was given ativan without relief, and was unable to participate in PT not Eating well, states did not sleep well last night, will switch albuterol to xopenex, however later in the afternoon patient became more somolent, and slow to respond, on 10/15 discussed with baling machine operator and patient was transferred to ICU and her respiratory symptoms worsen became hypoxic and patient was intubated, suspect 2/2 aspiration pnuemonia, patient is treated with zosyn, today again? patient is given sadation holiday, follows intstruction and weaning trial was given patient was able tolerate and extubated, patient is clinically improving will transfer patient out of ICU and will continue to monitor. 10/23/2022: Acute on chronic respiratory failure secondary to COPD exacerbation and questionable pneumonia. Intubated on 10/04/2022. Extubated on 10/10/2022. On oxygen supplementation via nasal cannula. On AVAPS at night. Diastolic heart failure. History of DVT and PE in 2019 hypertension. Reintubated 10/15/2022. Suspected due to use of narcotics. +/-aspiration pneumonia. Extubated 10/21/2022. Finished antibiotic course. Labs and chest x-ray reviewed. ABGs reviewed (2) UTI (urinary tract infection): Qualifiers: Urinary tract infection type: acute cystitis Hematuria presence: without hematuria Qualified Code(s): N30.00 - Acute cystitis without hematuria Code(s): N39.0 - Urinary tract infection, site not specified Status: Acute Assessment and Plan: -10/04: Urine cultures growing Klebs aerogenes ( Enterobacter) -continue ceftriaxone 2 ceftriaxone concludes today with total 7 days course (3) Heart failure with preserved ejection fraction: Qualifiers: Heart failure chronicity: unspecified Qualified Code(s): I50.30 - Unspecified diastolic (congestive) heart failure Code(s): I50.30 - Unspecified diastolic (congestive) heart failure Status: Acute Assessment and Plan: Echo 06/30/22 Summary ? 1. Complete two-dimensional, color flow and Doppler transthoracic echocardiogram is performed. ? 2. Left ventricular chamber dimension is normal. ? 3. Left ventricular systolic function is normal, estimated at 50-55%. ? 4. The left ventricular diastolic function is grade I diastolic dysfunction. ? 5. Right ventricular systolic function is normal. ? 6. There is mild aortic valve calcification. ? 7. The mitral valve annulus is mildly ca
--- NOTE | 2022-10-23 17:57 | PC.NURSE ---
This patient, Sharifa Mosquera, was transferred to [facility] on 10/23/22 at 1745. Personal belongings sent with patient. Report given to RN. Appropriate documentation sent with patient. Belonging in safe given by tank charger to Tania
[2022-10-23 18:18] LABS: Glucose Point of Care 130 mg/dl (65-105)
[2022-10-23] MEDS: MONTELUKAST SODIUM 10 MG TABLET PO (21:07)
[2022-10-23 21:26] LABS: Glucose Point of Care 123 mg/dl (65-105)
[2022-10-23] MEDS: methylPREDNISolone SOD SUCC 125 MG VIAL IV PUSH (22:44)
[2022-10-23] MEDS: LEVALBUTEROL NEB 1.25 MG/3 ML (22:45)
[2022-10-23 22:59] LABS: Alveolar/Arterial O2 Gradient 52.2 mmHg; Base Excess ABG 6.8 mEq/l (+/-2.0); Carboxyhemoglobin 0.3 % THb (0-2.0); Fractional Inspired Oxygen 36 %; Methemoglobin ABG 0.3 %THb (0-1.5); Oxygen Content ABG 13.8 %vol (16.0-22.0); Oxygen Saturation ABG 91.7 % (95.0-100.0); Oxyhemoglobin 91.6 % THb (90.0-100.0); PO2 ABG 81.1 mmHg (80.0-100.0); PO2 FiO2 Ratio Arterial Blood 2.25 %; Reduced Hemoglobin 7.8 %THb (0-5.0); Total Hemoglobin 10.6 g/dL (12.0-18.0)
[2022-10-23 23:02] LABS: pH ABG 7.171 (7.350-7.450)
[2022-10-23 23:03] LABS: Device NASAL CANNULA; Modified Allen's Test Pass; PCO2 ABG 106.4 mmHg (35.0-45.0); Site Drawn LEFT RADIAL
[2022-10-23] MEDS: LORazepam INJ (*CRX) 2 MG/ML VIAL 0.5 MG IV PUSH (23:14)
--- NOTE | 2022-10-23 23:31 | PM.CCN ---
Critical Care Event Note Summary Code activated: No Narrative: This is a 57-year-old female patient who has a history of COPD. The patient was admitted for acute and chronic respiratory failure with hypoxia. There was also some concern for questionable pneumonia. On October 04, 2022 the patient was intubated per outside hospital was placed on a ventilator and transferred to [facility] ICU. The patient was weaned off of steroids. On 10/10/2022 she was extubated to nasal cannula. On 10/15/2022 patient was transferred to ICU and was intubated at that time. It is suspected that the patient has aspiration pneumonia. The patient had been started on Zosyn. On 10/22/2022 the patient was given a sedation holiday and a weaning trial was given the patient was able to tolerate and was extubated. The patient then transferred out of ICU. Approximately 1 hour ago I was called into the patient's room because she was having respiratory distress. The patient had very decreased lung sounds and was not able to move any air at that time. I ordered neb treatments and gave her Solu-Medrol. An x-ray shows some consolidation in the right lower lobe. ABGs were obtained and were reviewed by Dr. Garnett. Dr. Garnett review the case with me in August the clinical decision to transfer the patient down to IMU. At the time that I arrived to the patient's room she was using accessory my muscles and was not able to talk at all. The patient was given a DuoNeb and Solu-Medrol at that time. I explained to the patient that we needed to use a BiPAP or intubate her. The patient shook her head no she did not want to be intubated she also shook her head no to the BiPAP. The patient was not able to speak but was able to lips a few words. However after a brief period of time the patient was able to talk in full sentences. By time I left her room she was able to talk and respond appropriately. By the time I left the room her ABGs resulted and they were as follows pH 7.171, CO2 was 106.4 and bicarb 38.0. Patient's oxygen level was turned up to 6-7 during her respiratory difficulties and then was turned back down to 2 L per nasal cannula. Case discussed with collaborative and agrees with antibiotics and transferred to IMU. Dr. Garnett initiated transfer. This case had a high probability of a clinically significant, sudden, or life threatening deterioration of this patient's condition which required my full and direct attention, intervention and personal management. Critical care time: 30 - 74 mins
[2022-10-24] VITALS (56 sets, daily range): BP systolic 83–137; BP diastolic 62–86; PULSE 11–127; RESP 12–26; TEMP 35.9–36.7; O2SAT 90–99
--- NOTE | 2022-10-24 00:06 | PC.NURSE ---
This patient, Sharifa Mosquera, was received from [[id number]] on 10/24/22 at 0000. Patient/family oriented to unit policies and routines
[2022-10-24 00:08] LABS: Glucose Point of Care 165 mg/dl (65-105)
[2022-10-24] MEDS: HYDROcodone/acetaminophen (*CRX) 7.5-325 MG TABLET 1 TAB FEED TUBE ×2 (00:29→08:39)
[2022-10-24] MEDS: PIPERACILLN/TAZ 3.375GM/NS50ML 3.375 GM/50 ML BAG IVPB ×4 (00:30→20:15)
--- NOTE | 2022-10-24 00:49 | PC.NURSE ---
Patient had bipap on for 15 minutes and requested to take it off because her nose is blocked. Explained that her CO2 is elevated and she needs to wear the mask to reduce it and we will ask for medications to open her nasal passages but she needs to breath through her mouth and wear the mask in the meantime. Patient gets upset and says to stop treating her like a baby and to let her do it her way. Explained that I was treating her like a patient that has a CO2 was so high she needed to move to a higher level of care for a continuous bipap so as not to get intubated again. Pt insists on another five minutes, picking and blowing her nose. The patient is breathing through her nose the entire five minutes this RN is waiting to place bipap back on. Bipap replaced and Dr Rangel called with medication request.
[2022-10-24] MEDS: VANCOMYCIN 1,250 MG/NS 250 ML 1,250 MG/250 ML BAG 166.67 MG IVPB (02:00)
[2022-10-24] MEDS: LORazepam INJ (*CRX) 2 MG/ML VIAL 1 MG IV PUSH (02:01)
[2022-10-24] MEDS: IPRATROPIUM BR 0.02% INH SOLN 0.5 MG/2.5 ML VIAL INHALATION ×4 (02:33→20:22)
[2022-10-24] MEDS: SALINE 0.65% NAS SOLN 44 ML BTL 1 SPRAY NASAL (03:55)
[2022-10-24] MEDS: LORATADINE 10 MG TABLET PO (03:56)
[2022-10-24] MEDS: MORPHINE SULFATE (*CRX) 2 MG/ML INJ IV PUSH ×4 (04:15→22:36)
[2022-10-24] MEDS: methylPREDNISolone SOD SUCC 125 MG VIAL 60 MG IV PUSH ×4 (04:42→22:35)
[2022-10-24 04:43] LABS: Alveolar/Arterial O2 Gradient 65.5 mmHg; Base Excess ABG 13.3 mEq/l (+/-2.0); Carboxyhemoglobin 0.2 % THb (0-2.0); Fractional Inspired Oxygen 30 %; HCO3 ABG 42.8 mEq/l (22.0-26.0); Methemoglobin ABG 0.4 %THb (0-1.5); Oxygen Content ABG 11.4 %vol (16.0-22.0); PO2 FiO2 Ratio Arterial Blood 1.51 %; Reduced Hemoglobin 26.3 %THb (0-5.0); Total Hemoglobin 11.1 g/dL (12.0-18.0); pH ABG 7.306 (7.350-7.450)
[2022-10-24 04:57] LABS: PO2 ABG 58.1 mmHg (80.0-100.0)
[2022-10-24 04:59] LABS: Basophils Absolute Auto 0.1 K/mm3 (0.0-0.1); Basophils Percent Auto 0.6 % (0.2-1.2); Hematocrit 30.7 % (37.0-47.0); Hemoglobin 9.2 g/dL (12.0-15.0); Immature Granulocyte Absolute 0.03 K/mm3 (0.00-0.031); Immature Granulocyte Percent A 0.3 % (0-0.5); Lymphocytes Percent Auto 5.7 % (18.3-44.2); Mean Corpuscular Hemoglobin 29.5 pg (26-34); Mean Corpuscular Volume 98.4 fl (80-100); Mean Platelet Volume 9.8 fl (7.4-10.4); Monocytes Absolute Auto 0.1 K/mm3 (0.1-0.6); Monocytes Percent Auto 0.9 % (2.6-8.5); Neutrophils Absolute Auto 8.1 K/mm3 (1.3-6.7); Neutrophils Percent Auto 92.5 % (45.5-73.1); Platelet Count Result 528 k/mm3 (150-375); Red Blood Count 3.12 M/mm3 (4.2-5.4); Red Cell Distribution Width 13.7 % (11.5-14.5); White Blood Count 8.8 K/mm3 (4.5-10.0)
[2022-10-24 05:03] LABS: Oxyhemoglobin 87.6 % THb (90.0-100.0)
[2022-10-24 05:04] LABS: Device BIPAP; Modified Allen's Test Pass; Site Drawn LEFT RADIAL
[2022-10-24 05:05] LABS: Expiratory Pressure 8 cmH2O; Inspiratory Pressure 12 cmH2O
[2022-10-24 05:12] LABS: Alanine Aminotransferase 29 U/L (6-35); Albumin Level 3.3 g/dL (3.5-5.1); Alkaline Phosphatase 132 U/L (38-126); Aspartate Amino Transferase 22 U/L (14-36); Bilirubin,Total 0.2 mg/dL (0.2-1.3); Blood Urea Nitrogen 10 mg/dL (7-17); Calcium 8.6 mg/dL (8.4-10.2); Carbon Dioxide > 40 mmol/L (22-30); Chloride 88 mmol/L (98-107); Estimated CRCL calculation 125 ml/min; Estimated Glomerular Filt Rate > 60; Glucose 190 mg/dL (65-110); Sodium 132 mmol/L (137-145); Triglycerides 133 mg/dL (<150)
[2022-10-24] MEDS: ALPRAZolam (*CRX) 0.5 MG TABLET PO ×3 (06:01→22:31)
[2022-10-24] MEDS: CENTRAL LINE FLUSH 10 ML IV PUSH ×4 (06:04→22:35)
[2022-10-24] MEDS: UMECLIDINIUM BROMIDE 62.5 MCG ELLIPTA 1 PUFF INHALATION (08:07)
[2022-10-24] MEDS: FLUTICASONE/SALMETEROL 115-21 MCG INHALER 1 PUFF 2 PUFF INHALATION ×2 (08:07→20:22)
[2022-10-24] MEDS: GABAPENTIN 300 MG CAPSULE 600 MG PO ×3 (08:30→19:33)
[2022-10-24] MEDS: busPIRone HCL 5 MG TABLET 15 MG PO ×2 (08:31→20:28)
[2022-10-24] MEDS: FLUTICASONE PROPIONATE 0.05% NA SPR 16 GM BTL (*BKC) 2 SPRAY NASAL (08:32)
[2022-10-24] MEDS: VENLAFAXINE HCL XR 75 MG CAP.ER.24H 150 MG PO (08:34)
[2022-10-24] MEDS: PANTOPRAZOLE SODIUM IV 40 MG VIAL IV PUSH ×2 (09:45→20:29)
--- NOTE | 2022-10-24 13:25 | PCPTNOTE ---
Attempted visit pt had breathing issuses and nursing was called in. Breathing treatment was to be administered and therapist will check back this afternoon.
[2022-10-24] MEDS: VANCOMYCIN 1,000 MG/NS 250 ML 1,000 MG/250 ML BAG 250 MG IVPB (13:27)
--- NOTE | 2022-10-24 13:43 | PC.NURSE ---
RT and RN at bedside post physical and occupational therapy treatment. C/O SOB. Patient tripoding at bedside. Neb treatment giving. Patient continues to refuse BiPaP treatment. RT and RN reviewed need to wear BiPaP.
--- NOTE | 2022-10-24 14:02 | PC.NURSE ---
Patient agreed to wear mask, BiPaP applied per RT
--- NOTE | 2022-10-24 14:10 | PM.IMPN ---
Progress Note: A&P Assessment and Plan (1) Acute on chronic respiratory failure with hypoxia and hypercapnia: Code(s): J96.21 - Acute and chronic respiratory failure with hypoxia; J96.22 - Acute and chronic respiratory failure with hypercapnia Status: Acute Assessment and Plan: Acute on chronic Respiratory failure secondary to COPD exacerbation and questionable pneumonia. Patient has baseline severe COPD and diastolic heart failure -10/04: Patient intubated blood the outside hospital, placed on mechanical ventilation and transferred to [facility] ICU -Continue full mechanical ventilation support to prevent hypoxemia/hypercarbia and end organ damage. -Chest x-ray : Severe emphysema, -weaning steroids -Continue bronchodilators -Continue current empiric antibiotics Rocephin, and azithromycin (10/04) -vancomycin discontinued -10/05: Blood cultures obtained and pending 10/04: Urine culture growing Klebs aerogenes Patient was sedated with fentanyl propofol and Precedex. Sedation has been discontinued and planned for spontaneous breathing trial 10/10/2022: Extubated to nasal 10/11/2022: On 2 L nasal cannula. Will increase activity. Monitor 10/22/2022: interval history:? Feels well.? she is still weak however patient was able to participate in physical therapy and Walked with therapy earlier on 10/13, on 10/14? stated? does not feel well and feels tired, ? Mild cough.? Shortness of breath with exertion. on 10/15 after receiving duo neb patient became anxious and patient was given ativan without relief, and was unable to participate in PT not Eating well, states did not sleep well last night, will switch albuterol to xopenex, however later in the afternoon patient became more somolent, and slow to respond, on 10/15 discussed with locomotive electrician and patient was transferred to ICU and her respiratory symptoms worsen became hypoxic and patient was intubated, suspect 2/2 aspiration pnuemonia, patient is treated with zosyn, today again? patient is given sadation holiday, follows intstruction and weaning trial was given patient was able tolerate and extubated, patient is clinically improving will transfer patient out of ICU and will continue to monitor. 10/23/2022: Acute on chronic respiratory failure secondary to COPD exacerbation and questionable pneumonia. Intubated on 10/04/2022. Extubated on 10/10/2022. On oxygen supplementation via nasal cannula. On AVAPS at night. Diastolic heart failure. History of DVT and PE in 2019 hypertension. Reintubated 10/15/2022. Suspected due to use of narcotics. +/-aspiration pneumonia. Extubated 10/21/2022. Finished antibiotic course. Labs and chest x-ray reviewed. ABGs reviewed 10/24/2022: Acute on chronic respiratory failure secondary to COPD exacerbation and pneumonia. Intubated on 10/04/2022. Extubated on 10/10/2022. Oxygen supplementation via nasal cannula. On AVAPS at night. Which she is noncompliant with. Also has underlying diastolic heart failure history of DVT and PE in 2019 hypertension. She was reintubated on 10/15/2021 23 suspected due to use of narcotics plus minus aspiration pneumonia. Extubated on 10/21/2022. Had another episode again 10/23/2022 restarted on Solu-Medrol placed on BiPAP ABG with respiratory acidosis. Needs AVAPS at night and p.r.n. during daytime. AVAPS night and ABG in a.m. (2) UTI (urinary tract infection): Qualifiers: Urinary tract infection type: acute cystitis Hematuria presence: without hematuria Qualified Code(s): N30.00 - Acute cystitis without hematuria Code(s): N39.0 - Urinary tract infection, site not specified Status: Acute Assessment and Plan: -10/04: Urine cultures growing Klebs aerogenes ( Enterobacter) -continue ceftriaxone 2 ceftriaxone concludes today with total 7 days course (3) Heart failure with preserved ejection fraction: Qualifiers: Heart failure chronicity: unspecified Qualified Cod
--- NOTE | 2022-10-24 14:38 | PC.NURSE ---
Patient removed mask, calling cousin to bring her home machine to wear at night. Patient notified that the machine will be left at the RN station and no one is to bring it directly to her room.
--- NOTE | 2022-10-24 15:48 | PCOTNOTE ---
Attempted to see pt for Occupational Therapy treatment. Pt is currently with [facility] at this time. Will attempt at a later time.
[2022-10-24 17:05] LABS: Glucose Point of Care 169 mg/dl (65-105)
[2022-10-24 17:05] LABS: Glucose Point of Care 151 mg/dl (65-105)
[2022-10-24] MEDS: MONTELUKAST SODIUM 10 MG TABLET PO (20:28)
[2022-10-25] VITALS (54 sets, daily range): BP systolic 96–148; BP diastolic 71–108; PULSE 98–130; RESP 8–29; TEMP 36.4–36.7; O2SAT 62–100
[2022-10-25] MEDS: PIPERACILLN/TAZ 3.375GM/NS50ML 3.375 GM/50 ML BAG IVPB ×4 (00:17→18:03)
[2022-10-25] MEDS: INSULIN ASPART (*BKC) 100 UNITS/ML SUB-Q ×2 (00:25→12:11)
[2022-10-25 00:34] LABS: Glucose Point of Care 310 mg/dl (65-105)
[2022-10-25] MEDS: MORPHINE SULFATE (*CRX) 2 MG/ML INJ IV PUSH ×5 (00:37→12:08)
[2022-10-25] MEDS: VANCOMYCIN 1,000 MG/NS 250 ML 1,000 MG/250 ML BAG 250 MG IVPB (00:50)
[2022-10-25] MEDS: IPRATROPIUM BR 0.02% INH SOLN 0.5 MG/2.5 ML VIAL INHALATION ×4 (02:08→20:19)
[2022-10-25 05:09] LABS: Alveolar/Arterial O2 Gradient 31.9 mmHg; Base Excess ABG 16.7 mEq/l (+/-2.0); Carboxyhemoglobin 0.3 % THb (0-2.0); Fractional Inspired Oxygen 28 %; HCO3 ABG 44.7 mEq/l (22.0-26.0); Methemoglobin ABG 0.3 %THb (0-1.5); Oxygen Saturation ABG 94.8 % (95.0-100.0); Oxyhemoglobin 94.2 % THb (90.0-100.0); PO2 ABG 78.2 mmHg (80.0-100.0); PO2 FiO2 Ratio Arterial Blood 2.79 %; Reduced Hemoglobin 5.2 %THb (0-5.0); Total Hemoglobin 10.5 g/dL (12.0-18.0); pH ABG 7.388 (7.350-7.450)
[2022-10-25 05:11] LABS: PCO2 ABG 75.9 mmHg (35.0-45.0); Site Drawn RIGHT RADIAL
[2022-10-25 05:12] LABS: Device NASAL CANNULA; Modified Allen's Test Pass
[2022-10-25] MEDS: ALPRAZolam (*CRX) 0.5 MG TABLET PO ×3 (05:36→20:38)
[2022-10-25] MEDS: CENTRAL LINE FLUSH 10 ML IV PUSH ×3 (05:37→20:38)
[2022-10-25] MEDS: methylPREDNISolone SOD SUCC 125 MG VIAL 60 MG IV PUSH ×3 (05:37→16:47)
[2022-10-25 06:13] LABS: Basophils Percent Auto 0.1 % (0.2-1.2); Hemoglobin 8.9 g/dL (12.0-15.0); Immature Granulocyte Absolute 0.04 K/mm3 (0.00-0.031); Immature Granulocyte Percent A 0.5 % (0-0.5); Lymphocytes Absolute Auto 1.08 K/mm3 (0.9-3.2); Lymphocytes Percent Auto 12.8 % (18.3-44.2); Mean Corpuscular HGB Conc 30.7 g/dl (32-36); Mean Corpuscular Hemoglobin 29.5 pg (26-34); Mean Platelet Volume 9.9 fl (7.4-10.4); Monocytes Absolute Auto 0.5 K/mm3 (0.1-0.6); Neutrophils Absolute Auto 6.8 K/mm3 (1.3-6.7); Neutrophils Percent Auto 80.6 % (45.5-73.1); Platelet Count Result 613 k/mm3 (150-375); Red Blood Count 3.02 M/mm3 (4.2-5.4); Red Cell Distribution Width 13.2 % (11.5-14.5); White Blood Count 8.5 K/mm3 (4.5-10.0)
[2022-10-25 06:25] LABS: Blood Urea Nitrogen 13 mg/dL (7-17); Calcium 8.5 mg/dL (8.4-10.2); Carbon Dioxide > 40 mmol/L (22-30); Chloride 85 mmol/L (98-107); Estimated CRCL calculation 98 ml/min; Estimated Glomerular Filt Rate > 60; Glucose 121 mg/dL (65-110); Magnesium 2.1 mg/dL (1.6-2.3); Potassium 4.3 mmol/L (3.4-5.0); Sodium 132 mmol/L (137-145)
[2022-10-25 07:10] LABS: Vancomycin Trough 15.1 ug/mL (10.0-20.0)
[2022-10-25] MEDS: UMECLIDINIUM BROMIDE 62.5 MCG ELLIPTA 1 PUFF INHALATION (07:53)
[2022-10-25] MEDS: FLUTICASONE/SALMETEROL 115-21 MCG INHALER 1 PUFF 2 PUFF INHALATION ×2 (07:53→20:19)
[2022-10-25] MEDS: HYDROcodone/acetaminophen (*CRX) 7.5-325 MG TABLET 1 TAB FEED TUBE ×3 (08:40→20:38)
[2022-10-25] MEDS: GABAPENTIN 300 MG CAPSULE 600 MG PO ×3 (08:41→16:47)
[2022-10-25] MEDS: DOCUSATE SODIUM LIQ 100 MG/10 ML UDC FEED TUBE (08:41)
[2022-10-25] MEDS: FLUTICASONE PROPIONATE 0.05% NA SPR 16 GM BTL (*BKC) 2 SPRAY NASAL (08:41)
[2022-10-25] MEDS: LORATADINE 10 MG TABLET PO (08:42)
[2022-10-25] MEDS: PANTOPRAZOLE SODIUM IV 40 MG VIAL IV PUSH ×2 (08:42→20:34)
[2022-10-25] MEDS: busPIRone HCL 5 MG TABLET 15 MG PO ×2 (08:42→20:37)
[2022-10-25] MEDS: VENLAFAXINE HCL XR 75 MG CAP.ER.24H 150 MG PO (08:42)
--- NOTE | 2022-10-25 11:07 | PM.IMPN ---
Progress Note: A&P Assessment and Plan (1) Acute on chronic respiratory failure with hypoxia and hypercapnia: Code(s): J96.21 - Acute and chronic respiratory failure with hypoxia; J96.22 - Acute and chronic respiratory failure with hypercapnia Status: Acute Assessment and Plan: Acute on chronic Respiratory failure secondary to COPD exacerbation and questionable pneumonia. Patient has baseline severe COPD and diastolic heart failure -10/04: Patient intubated blood the outside hospital, placed on mechanical ventilation and transferred to [facility] ICU -Continue full mechanical ventilation support to prevent hypoxemia/hypercarbia and end organ damage. -Chest x-ray : Severe emphysema, -weaning steroids -Continue bronchodilators -Continue current empiric antibiotics Rocephin, and azithromycin (10/04) -vancomycin discontinued -10/05: Blood cultures obtained and pending 10/04: Urine culture growing Klebs aerogenes Patient was sedated with fentanyl propofol and Precedex. Sedation has been discontinued and planned for spontaneous breathing trial 10/10/2022: Extubated to nasal 10/11/2022: On 2 L nasal cannula. Will increase activity. Monitor 10/22/2022: interval history:? Feels well.? she is still weak however patient was able to participate in physical therapy and Walked with therapy earlier on 10/13, on 10/14? stated? does not feel well and feels tired, ? Mild cough.? Shortness of breath with exertion. on 10/15 after receiving duo neb patient became anxious and patient was given ativan without relief, and was unable to participate in PT not Eating well, states did not sleep well last night, will switch albuterol to xopenex, however later in the afternoon patient became more somolent, and slow to respond, on 10/15 discussed with outreach professional and patient was transferred to ICU and her respiratory symptoms worsen became hypoxic and patient was intubated, suspect 2/2 aspiration pnuemonia, patient is treated with zosyn, today again? patient is given sadation holiday, follows intstruction and weaning trial was given patient was able tolerate and extubated, patient is clinically improving will transfer patient out of ICU and will continue to monitor. 10/23/2022: Acute on chronic respiratory failure secondary to COPD exacerbation and questionable pneumonia. Intubated on 10/04/2022. Extubated on 10/10/2022. On oxygen supplementation via nasal cannula. On AVAPS at night. Diastolic heart failure. History of DVT and PE in 2019 hypertension. Reintubated 10/15/2022. Suspected due to use of narcotics. +/-aspiration pneumonia. Extubated 10/21/2022. Finished antibiotic course. Labs and chest x-ray reviewed. ABGs reviewed 10/24/2022: Acute on chronic respiratory failure secondary to COPD exacerbation and pneumonia. Intubated on 10/04/2022. Extubated on 10/10/2022. Oxygen supplementation via nasal cannula. On AVAPS at night. Which she is noncompliant with. Also has underlying diastolic heart failure history of DVT and PE in 2019 hypertension. She was reintubated on 10/15/2021 23 suspected due to use of narcotics plus minus aspiration pneumonia. Extubated on 10/21/2022. Had another episode again 10/23/2022 restarted on Solu-Medrol placed on BiPAP ABG with respiratory acidosis. Needs AVAPS at night and p.r.n. during daytime. AVAPS night and ABG in a.m. 10/25/2022: Acute on chronic respiratory failure secondary to COPD exacerbation and pneumonia. Intubated on 10/04/2022. Extubated on 10/10/2022. Oxygen supplementation via nasal cannula. On AVAPS at night. Which she is noncompliant with. Also has underlying diastolic heart failure history of DVT and PE in 2019 hypertension. She was reintubated on 10/15/2021 23 suspected due to use of narcotics plus minus aspiration pneumonia. Extubated on 10/21/2022. Had another episode again 10/23/2022 restarted on Solu-Medrol placed on BiPAP ABG with respiratory acidosis. Needs AVAPS at night and p.r.n
[2022-10-25] MEDS: guaiFENesin 600 MG/DEXTROMETHORPHAN 30 MG SR TAB 12 HR 1 TAB PO ×2 (12:08→20:37)
[2022-10-25 12:30] LABS: Vancomycin Trough 9.3 ug/mL (10.0-20.0)
[2022-10-25 15:51] LABS: Glucose Point of Care 203 mg/dl (65-105)
[2022-10-25 19:01] LABS: Glucose Point of Care 133 mg/dl (65-105)
[2022-10-25] MEDS: MONTELUKAST SODIUM 10 MG TABLET PO (20:37)
[2022-10-26] VITALS (22 sets, daily range): BP systolic 109–138; BP diastolic 76–90; PULSE 104–128; RESP 17–22; TEMP 36.2–36.8; O2SAT 96–100
[2022-10-26] MEDS: PIPERACILLN/TAZ 3.375GM/NS50ML 3.375 GM/50 ML BAG IVPB ×2 (00:09→05:09)
[2022-10-26] MEDS: methylPREDNISolone SOD SUCC 125 MG VIAL 60 MG IV PUSH ×3 (00:09→11:45)
[2022-10-26] MEDS: HYDROcodone/acetaminophen (*CRX) 7.5-325 MG TABLET 1 TAB FEED TUBE ×5 (00:10→21:17)
[2022-10-26] MEDS: IPRATROPIUM BR 0.02% INH SOLN 0.5 MG/2.5 ML VIAL INHALATION ×4 (01:47→21:00)
[2022-10-26 04:19] LABS: Alveolar/Arterial O2 Gradient 20.2 mmHg; Base Excess ABG 20.3 mEq/l (+/-2.0); Carboxyhemoglobin 0.3 % THb (0-2.0); Fractional Inspired Oxygen 28 %; HCO3 ABG 49.6 mEq/l (22.0-26.0); Methemoglobin ABG 0.4 %THb (0-1.5); Oxygen Content ABG 14.7 %vol (16.0-22.0); Oxygen Saturation ABG 93.9 % (95.0-100.0); Oxyhemoglobin 93.8 % THb (90.0-100.0); PO2 FiO2 Ratio Arterial Blood 2.71 %; Reduced Hemoglobin 5.5 %THb (0-5.0); Total Hemoglobin 11.1 g/dL (12.0-18.0)
[2022-10-26 04:21] LABS: Modified Allen's Test Pass; PCO2 ABG 87.7 mmHg (35.0-45.0); Site Drawn RIGHT RADIAL
[2022-10-26 04:22] LABS: Device BIPAP
[2022-10-26] MEDS: ALPRAZolam (*CRX) 0.5 MG TABLET PO ×3 (05:09→21:17)
[2022-10-26] MEDS: CENTRAL LINE FLUSH 10 ML IV PUSH ×3 (05:10→22:00)
[2022-10-26 05:59] LABS: Basophils Percent Auto 0.1 % (0.2-1.2); Hematocrit 32.6 % (37.0-47.0); Hemoglobin 9.9 g/dL (12.0-15.0); Immature Granulocyte Absolute 0.08 K/mm3 (0.00-0.031); Immature Granulocyte Percent A 0.6 % (0-0.5); Lymphocytes Absolute Auto 0.94 K/mm3 (0.9-3.2); Lymphocytes Percent Auto 6.8 % (18.3-44.2); Mean Corpuscular HGB Conc 30.4 g/dl (32-36); Mean Corpuscular Hemoglobin 29.5 pg (26-34); Mean Platelet Volume 9.6 fl (7.4-10.4); Monocytes Absolute Auto 0.6 K/mm3 (0.1-0.6); Monocytes Percent Auto 4.2 % (2.6-8.5); Neutrophils Absolute Auto 12.1 K/mm3 (1.3-6.7); Neutrophils Percent Auto 88.3 % (45.5-73.1); Platelet Count Result 703 k/mm3 (150-375); Red Blood Count 3.36 M/mm3 (4.2-5.4); Red Cell Distribution Width 13.3 % (11.5-14.5); White Blood Count 13.7 K/mm3 (4.5-10.0)
[2022-10-26 06:12] LABS: Alanine Aminotransferase 24 U/L (6-35); Albumin Level 3.4 g/dL (3.5-5.1); Alkaline Phosphatase 115 U/L (38-126); Aspartate Amino Transferase 26 U/L (14-36); Bilirubin,Total 0.3 mg/dL (0.2-1.3); Blood Urea Nitrogen 13 mg/dL (7-17); Calcium 8.7 mg/dL (8.4-10.2); Carbon Dioxide > 40 mmol/L (22-30); Chloride 81 mmol/L (98-107); Estimated CRCL calculation 100 ml/min; Estimated Glomerular Filt Rate > 60; Glucose 128 mg/dL (65-110); Potassium 4.9 mmol/L (3.4-5.0); Sodium 130 mmol/L (137-145)
[2022-10-26] MEDS: FLUTICASONE/SALMETEROL 115-21 MCG INHALER 1 PUFF 2 PUFF INHALATION ×2 (07:52→21:00)
[2022-10-26 07:54] LABS: Glucose Point of Care 163 mg/dl (65-105)
[2022-10-26] MEDS: GABAPENTIN 300 MG CAPSULE 600 MG PO ×3 (08:25→16:35)
[2022-10-26] MEDS: busPIRone HCL 5 MG TABLET 15 MG PO ×2 (08:26→21:10)
[2022-10-26] MEDS: PANTOPRAZOLE SODIUM IV 40 MG VIAL IV PUSH (08:26)
[2022-10-26] MEDS: VENLAFAXINE HCL XR 75 MG CAP.ER.24H 150 MG PO (08:26)
[2022-10-26] MEDS: FLUTICASONE PROPIONATE 0.05% NA SPR 16 GM BTL (*BKC) 2 SPRAY NASAL (08:27)
[2022-10-26] MEDS: guaiFENesin 600 MG/DEXTROMETHORPHAN 30 MG SR TAB 12 HR 1 TAB PO ×2 (08:27→21:10)
[2022-10-26] MEDS: LORATADINE 10 MG TABLET PO (08:27)
[2022-10-26] MEDS: DOCUSATE SODIUM LIQ 100 MG/10 ML UDC FEED TUBE (08:28)
--- NOTE | 2022-10-26 09:22 | PCNFU ---
Nutrition Follow-Up Complete: Inadequate energy intake related to NPO as evidenced by mechanical vent, need for full tube feeding. Goal: Tolerate tube feeding at goal rate - Goal met Meet estimated energy requirements - Meeting goal Pt current nutrition is Minced & moist level 5, level 3 moderately thickened liquids. 100% dinner last night. Ensure Enlive TID for additional 350 kcal and 20 g protein each. Intakes improving. Nutrition recommendation: Continue with current nutrition care plan. Agree with orders. Last recorded weight is 49.5 kg. +6.5 kg since admission. BMI up from 15.3 to 17.6 Bowel Motility: Last BM 10/22/22. May benefit from more bowel regimen Labs Reviewed: Hgn 9.9, Hct 32.6, Alb 3.4, Na 130, Cre 0.4 Meds Noted: Zosyn, vancomycin, dulcolax Skin: WNL Additional Notes: Extubated 10/22/22. Intakes improving. Up walking. Continue with current care plan and orders Monitoring tolerance, labs, weights, plan of care Followup every 5 days
--- NOTE | 2022-10-26 10:10 | PCOTNOTE ---
Patient refused treatment this session due to patient sleeping will attempt at a later time if schedule permitted.
[2022-10-26 12:26] LABS: Glucose Point of Care 143 mg/dl (65-105)
[2022-10-26 13:34] LABS: Vancomycin Trough 15.4 ug/mL (10.0-20.0)
[2022-10-26] MEDS: INSULIN ASPART (*BKC) 100 UNITS/ML SUB-Q (16:35)
[2022-10-26 16:55] LABS: Glucose Point of Care 240 mg/dl (65-105)
[2022-10-26] MEDS: METOPROLOL TARTRATE 12.5 MG TABLET PO (18:33)
--- NOTE | 2022-10-26 19:28 | PM.CNPUL ---
Assessment and Plan Assessment and plan (1) Acute on chronic respiratory failure with hypoxia and hypercapnia: Code(s): J96.21 - Acute and chronic respiratory failure with hypoxia; J96.22 - Acute and chronic respiratory failure with hypercapnia Status: Acute Assessment and Plan: Acute on chronic respiratory failure secondary to COPD exacerbation and pneumonia.?Joey has physical exam showing consolidation in the right posterior lung andrea, gradually improving. now on O2 nasal cannula. She has used AVAPS at night, does not tolerate this well. ? Other conditions include diastolic heart failure, prior DVT, PE in 2019, HTN. She was reintubated on 10/15/2022 suspected due to use of narcotics plus minus aspiration pneumonia.? SHe decompensated 10/23 requiring more steroids, BiPAP. She was at home before this admission. There is a possible plan for her to go to a facility on discharge. She has less respiratory acidosis. However she is fragile, and will always have hypercapnia. Now on oral steroids. (2) Aspiration pneumonia: Code(s): J69.0 - Pneumonitis due to inhalation of food and vomit Status: Acute (3) Tobacco abuse: Code(s): Z72.0 - Tobacco use Status: Acute Plan I will follow with you. She is 57 years old, however is at the end stage of COPD with continued smoking, does not want to use the NPPV. History of Present Illness History of Present Illness Consult date: 10/28/22 Requesting physician: Leanne Lindsey NP Chief complaint: Acute/Chronic Respiratory Failure Narrative: October 26 date of consult NEW: Sharifa Mosquera is 57-years old, seen for COPD exacerbation with acute on chronic hypercarbic and hypoxemic respiratory failure. She was intubated .03.18 through 10.10.22, reintubated . through 10.21.22 due to opioids and aspiration pneumonia. She feels better today, less short of breath. When she was admitted, she had over 10 episodes of N/V over a few days, no diarrhea. She had no exposure to sick contacts. She was intubated in extubated twice this admission. At home, she continues to smoke, and does not want to use non-invasive device for respiratory support. She is weak, but not in distress. 10/26/2022 CXR : Impression:? Improving right lower lobe pneumonia. Mild haziness left lung base, nonspecific. Early pneumonia not excluded. Severe emphysema. A history of GOLD grade 4 group E COPD with 84 pack years tobacco use and currently smoking half a pack, Alpha 1 MS with level 148 (normal) on 07/01/22 (FEV1 0.47 L, 18%, air trapping, hyperinflation and decreased DLCO from PFTs on 02/14/2020) on 1 L at rest and 3 L with ambulation at home, severe panlobular emphysema all lung andrea on CT scan of the chest 07/02/2021, and history of hypercarbic hypoxemic respiratory failure in the past, HFpEF with grade 1 diastolic dysfunction, DVT and PE in 2019 and recent falls with fractured left wrist 01/2021, fractured knee 12/2021 and fractured right wrist 2-3 weeks ago. At baseline patient states that she can walk room to room and this has been unchanged over the last year. She was last admitted to the hospital approximately 1 year ago for COPD exacerbation and when she fell and broke her knee on 01/30/2022. she was admitted to the hospital and had breathing trouble. She also had covert at that time. She is maintained on Symbicort 160-4.5 at 2 puffs b.i.d. and increase elipta at 62.5 at 1 puff q.day. Patient also takes montelukast 10 mg a day. Patient smokes tobacco from age 15 to current. She had smoked 2 packs per day for total of 84 pack years and has recently cut down to 1/2 pack per day. Patient was exposed to secondhand smoke for both of her parents but none currently. Patient denies occupational exposures. Patient was admitted to the hospital from 06/28/2022 through 07/04/2022. She was treated for COPD exacerbation and was initiated on home noninvasive ventilation with AVAPS-AE mode through [employer] wi
[2022-10-26 20:12] LABS: Glucose Point of Care 219 mg/dl (65-105)
[2022-10-26] MEDS: MONTELUKAST SODIUM 10 MG TABLET PO (21:09)
[2022-10-26] MEDS: AMOXICILLIN/CLAVULANATE K 875-125 MG TAB 1 TABLET PO (21:10)
[2022-10-26] MEDS: PANTOPRAZOLE 40 MG TABLET PO (21:10)
[2022-10-27] VITALS (25 sets, daily range): BP systolic 97–141; BP diastolic 63–85; PULSE 69–154; RESP 18–22; TEMP 36.3–36.9; O2SAT 94–100
[2022-10-27] MEDS: METOPROLOL TARTRATE INJ 5 MG/5 ML VIAL IV PUSH (00:04)
[2022-10-27] MEDS: IPRATROPIUM BR 0.02% INH SOLN 0.5 MG/2.5 ML VIAL INHALATION ×4 (02:15→20:51)
[2022-10-27 05:13] LABS: Basophils Percent Auto 0.2 % (0.2-1.2); Eosinophils Percent Auto 0.3 % (0-4.4); Hematocrit 32.1 % (37.0-47.0); Hemoglobin 9.5 g/dL (12.0-15.0); Immature Granulocyte Absolute 0.09 K/mm3 (0.00-0.031); Immature Granulocyte Percent A 0.7 % (0-0.5); Lymphocytes Absolute Auto 2.46 K/mm3 (0.9-3.2); Lymphocytes Percent Auto 20.1 % (18.3-44.2); Mean Corpuscular HGB Conc 29.6 g/dl (32-36); Mean Corpuscular Hemoglobin 29.3 pg (26-34); Mean Corpuscular Volume 99.1 fl (80-100); Mean Platelet Volume 9.7 fl (7.4-10.4); Monocytes Absolute Auto 1.4 K/mm3 (0.1-0.6); Monocytes Percent Auto 11.5 % (2.6-8.5); Neutrophils Absolute Auto 8.2 K/mm3 (1.3-6.7); Neutrophils Percent Auto 67.2 % (45.5-73.1); Platelet Count Result 652 k/mm3 (150-375); Red Blood Count 3.24 M/mm3 (4.2-5.4); Red Cell Distribution Width 13.7 % (11.5-14.5); White Blood Count 12.2 K/mm3 (4.5-10.0)
[2022-10-27 05:25] LABS: Alanine Aminotransferase 28 U/L (6-35); Alkaline Phosphatase 101 U/L (38-126); Aspartate Amino Transferase 35 U/L (14-36); Bilirubin,Total 0.3 mg/dL (0.2-1.3); Blood Urea Nitrogen 16 mg/dL (7-17); Calcium 8.4 mg/dL (8.4-10.2); Carbon Dioxide > 40 mmol/L (22-30); Chloride 83 mmol/L (98-107); Estimated CRCL calculation 127 ml/min; Estimated Glomerular Filt Rate > 60; Glucose 111 mg/dL (65-110); Magnesium 2.1 mg/dL (1.6-2.3); Potassium 3.6 mmol/L (3.4-5.0); Sodium 131 mmol/L (137-145)
[2022-10-27 05:37] LABS: Hypochromasia 2+ (NORMAL); Platelet Estimate Increased (Adequate)
[2022-10-27 05:38] LABS: Schistocytes None Seen (NORMAL); Stomatocytes 1+ (NORMAL)
[2022-10-27] MEDS: HYDROcodone/acetaminophen (*CRX) 7.5-325 MG TABLET 1 TAB FEED TUBE ×4 (05:46→21:21)
[2022-10-27] MEDS: CENTRAL LINE FLUSH 10 ML IV PUSH ×3 (05:48→21:15)
[2022-10-27 05:57] LABS: Alveolar/Arterial O2 Gradient 33.2 mmHg; Base Excess ABG 20.4 mEq/l (+/-2.0); Carboxyhemoglobin 0.1 % THb (0-2.0); Fractional Inspired Oxygen 28 %; Methemoglobin ABG 0.4 %THb (0-1.5); Oxygen Content ABG 14.4 %vol (16.0-22.0); Oxyhemoglobin 93.3 % THb (90.0-100.0); Reduced Hemoglobin 6.2 %THb (0-5.0); Total Hemoglobin 10.9 g/dL (12.0-18.0); pH ABG 7.396 (7.350-7.450)
[2022-10-27 05:59] LABS: PCO2 ABG 81.7 mmHg (35.0-45.0)
[2022-10-27 06:00] LABS: Device OTHER DEVICE; Site Drawn LEFT BRACHIAL
[2022-10-27] MEDS: ALPRAZolam (*CRX) 0.5 MG TABLET PO ×3 (06:00→21:22)
--- NOTE | 2022-10-27 06:11 | PC.NURSE ---
patient wore trilogy 5.5 hours over night. ABG's drawn before mask removed. Critical results reported to Dr. Coates with [facility].
[2022-10-27] MEDS: FLUTICASONE/SALMETEROL 115-21 MCG INHALER 1 PUFF 2 PUFF INHALATION ×2 (07:53→20:51)
[2022-10-27 08:12] LABS: Glucose Point of Care 118 mg/dl (65-105)
[2022-10-27] MEDS: predniSONE 20 MG TABLET 40 MG PO (09:36)
[2022-10-27] MEDS: DOCUSATE SODIUM 100 MG CAPSULE PO (09:37)
[2022-10-27] MEDS: AMOXICILLIN/CLAVULANATE K 875-125 MG TAB 1 TABLET PO ×2 (09:37→21:11)
[2022-10-27] MEDS: GABAPENTIN 300 MG CAPSULE 600 MG PO ×3 (09:37→16:10)
[2022-10-27] MEDS: METOPROLOL TARTRATE 12.5 MG TABLET PO ×2 (09:37→21:12)
[2022-10-27] MEDS: SALINE 0.65% NAS SOLN 44 ML BTL 1 SPRAY NASAL (09:37)
[2022-10-27] MEDS: LORATADINE 10 MG TABLET PO (09:37)
[2022-10-27] MEDS: PANTOPRAZOLE 40 MG TABLET PO ×2 (09:37→21:11)
[2022-10-27] MEDS: VENLAFAXINE HCL XR 75 MG CAP.ER.24H 150 MG PO (09:37)
[2022-10-27] MEDS: guaiFENesin 600 MG/DEXTROMETHORPHAN 30 MG SR TAB 12 HR 1 TAB PO ×2 (09:37→21:11)
[2022-10-27] MEDS: busPIRone HCL 5 MG TABLET 15 MG PO ×2 (09:37→21:11)
[2022-10-27] MEDS: FLUTICASONE PROPIONATE 0.05% NA SPR 16 GM BTL (*BKC) 2 SPRAY NASAL (09:38)
[2022-10-27 12:01] LABS: Glucose Point of Care 133 mg/dl (65-105)
--- NOTE | 2022-10-27 16:11 | PC.NURSE ---
06:00 dose of Xanax was pulled from [facility] by previous shift night RN. Power. Patient confirmed she was given 06:00 dose. Medication was not scanned into JUN. Charge nurse Kate and bike shop manager notified.
[2022-10-27 16:32] LABS: Glucose Point of Care 194 mg/dl (65-105)
[2022-10-27 20:18] LABS: Glucose Point of Care 154 mg/dl (65-105)
[2022-10-27] MEDS: MONTELUKAST SODIUM 10 MG TABLET PO (21:12)
[2022-10-28] VITALS (21 sets, daily range): BP systolic 103–117; BP diastolic 64–84; PULSE 97–204; RESP 14–24; TEMP 36.1–37.1; O2SAT 95–99
[2022-10-28] MEDS: IPRATROPIUM BR 0.02% INH SOLN 0.5 MG/2.5 ML VIAL INHALATION ×3 (02:09→13:45)
--- NOTE | 2022-10-28 04:11 | PC.NURSE ---
One episode of SVT tonight with Cpap on. Denies chest pain/ complaints other than can't sleep and wants Cpap off. Respirations even/nonlabored with oxygen @2L/NC.
[2022-10-28] MEDS: HYDROcodone/acetaminophen (*CRX) 7.5-325 MG TABLET 1 TAB FEED TUBE ×4 (04:59→21:06)
[2022-10-28] MEDS: ALPRAZolam (*CRX) 0.5 MG TABLET PO ×3 (04:59→22:18)
--- NOTE | 2022-10-28 05:22 | PC.NURSE ---
agreed to put Cpap back on @5am
[2022-10-28 07:50] LABS: Glucose Point of Care 108 mg/dl (65-105)
[2022-10-28] MEDS: GABAPENTIN 300 MG CAPSULE 600 MG PO ×2 (08:22→13:24)
[2022-10-28] MEDS: FLUTICASONE PROPIONATE 0.05% NA SPR 16 GM BTL (*BKC) 2 SPRAY NASAL (08:22)
[2022-10-28] MEDS: guaiFENesin 600 MG/DEXTROMETHORPHAN 30 MG SR TAB 12 HR 1 TAB PO ×2 (08:23→21:12)
[2022-10-28] MEDS: busPIRone HCL 5 MG TABLET 15 MG PO ×2 (08:23→21:11)
[2022-10-28] MEDS: VENLAFAXINE HCL XR 75 MG CAP.ER.24H 150 MG PO (08:23)
[2022-10-28] MEDS: DOCUSATE SODIUM 100 MG CAPSULE PO (08:23)
[2022-10-28] MEDS: predniSONE 20 MG TABLET 40 MG PO (08:23)
[2022-10-28] MEDS: AMOXICILLIN/CLAVULANATE K 875-125 MG TAB 1 TABLET PO ×2 (08:23→21:11)
[2022-10-28] MEDS: PANTOPRAZOLE 40 MG TABLET PO ×2 (08:24→21:13)
[2022-10-28] MEDS: LORATADINE 10 MG TABLET PO (08:24)
[2022-10-28] MEDS: FLUTICASONE/SALMETEROL 115-21 MCG INHALER 1 PUFF 2 PUFF INHALATION ×2 (08:26→20:38)
--- NOTE | 2022-10-28 08:28 | PM.IMPN ---
Progress Note: A&P Assessment and Plan (1) Acute on chronic respiratory failure with hypoxia and hypercapnia: Code(s): J96.21 - Acute and chronic respiratory failure with hypoxia; J96.22 - Acute and chronic respiratory failure with hypercapnia Status: Acute Assessment and Plan: Acute on chronic respiratory failure secondary to COPD exacerbation and pneumonia. Intubated on 10/04/2022. Extubated on 10/10/2022. Oxygen supplementation via nasal cannula. On AVAPS at night. Which she is noncompliant with. Also has underlying diastolic heart failure history of DVT and PE in 2019 hypertension. She was reintubated on 10/15/2022 suspected due to use of narcotics plus minus aspiration pneumonia. Extubated on 10/21/2022. Had another episode again 10/23/2022 restarted on Solu-Medrol placed on BiPAP ABG with respiratory acidosis. Needs AVAPS at night and p.r.n. during daytime. AVAPS night and encouraged her to use. ABG improving but with persistent hypercarbia likely chronic.. Vancomycin stopped. Solu Medrol switched to prednisone and continue taper. Switched Zosyn to Augmentin. Boss catheter removed. For mild tachycardia added beta-maverick metoprolol 12.5 b.i.d.. On Xanax for anxiety along with buspirone and gabapentin and venlafaxine. Continue bronchodilators. Chronic back pain on hydrocodone p.r.n. going to a nursing facility from here at [facility] with [facility] accepted. Prior to hospitalization patient was living at home. At baseline home oxygen. Pulmonary following (2) UTI (urinary tract infection): Qualifiers: Hematuria presence: without hematuria Urinary tract infection type: acute cystitis Qualified Code(s): N30.00 - Acute cystitis without hematuria Code(s): N39.0 - Urinary tract infection, site not specified Status: Acute Assessment and Plan: -10/04: Urine cultures growing Klebs aerogenes ( Enterobacter) -continue ceftriaxone 2 ceftriaxone concludes today with total 7 days course (3) Heart failure with preserved ejection fraction: Qualifiers: Heart failure chronicity: unspecified Qualified Code(s): I50.30 - Unspecified diastolic (congestive) heart failure Code(s): I50.30 - Unspecified diastolic (congestive) heart failure Status: Acute Assessment and Plan: Echo 06/30/22 Summary ? 1. Complete two-dimensional, color flow and Doppler transthoracic echocardiogram is performed. ? 2. Left ventricular chamber dimension is normal. ? 3. Left ventricular systolic function is normal, estimated at 50-55%. ? 4. The left ventricular diastolic function is grade I diastolic dysfunction. ? 5. Right ventricular systolic function is normal. ? 6. There is mild aortic valve calcification. ? 7. The mitral valve annulus is mildly calcified. ? 8. The mitral valve has thickened leaflets. ? 9. There is trace mitral valve regurgitation. ? 10. There is mild tricuspid valve regurgitation. ? 11. There is mild aortic atherosclerosis. ? 12. Normal inferior vena cava with >50% collapse upon inspiration consistent with normal right atrial pressure, 3 mmHg. (4) Chronic obstructive pulmonary disease: Code(s): J44.9 - Chronic obstructive pulmonary disease, unspecified Status: Acute Assessment and Plan: See above (5) Pneumonia: Code(s): J18.9 - Pneumonia, unspecified organism Status: Acute Assessment and Plan: See above (6) History of pulmonary embolus (PE): Code(s): Z86.711 - Personal history of pulmonary embolism Status: Acute Assessment and Plan: Continue apixaban Plan Chronic pain. Resume home medication dVT prophylaxis -apixaban Stress ulcer prophylaxis -PPI Nutrition -on a regular diet Code Status - Full Code Subjective Date/time seen: 10/28/22 08:28 Interval history: hospital follow up : Sharifa Mosquera is 57-years old, seen for?COPD exacerbation with acute on chronic hypercarbic and hypoxemic
[2022-10-28] MEDS: METOPROLOL TARTRATE 12.5 MG TABLET PO ×2 (08:51→21:21)
[2022-10-28 12:09] LABS: Glucose Point of Care 147 mg/dl (65-105)
[2022-10-28] MEDS: CENTRAL LINE FLUSH 10 ML IV PUSH ×2 (13:24→22:20)
--- NOTE | 2022-10-28 14:11 | PM.PNPUL ---
Progress Note: A&P Assessment and Plan (1) Acute on chronic respiratory failure with hypoxia and hypercapnia: Code(s): J96.21 - Acute and chronic respiratory failure with hypoxia; J96.22 - Acute and chronic respiratory failure with hypercapnia Status: Acute Assessment and Plan: Acute on chronic respiratory failure secondary to COPD exacerbation and pneumonia.?Joey has physical exam showing consolidation in the right posterior lung andrea, gradually improving. Now on O2 nasal cannula 1-3 L /min today. She has used AVAPS at night, does not tolerate this well. ? Other conditions include diastolic heart failure, prior DVT, PE in 2019, HTN. She was reintubated on 10/15/2022 suspected due to use of narcotics plus minus aspiration pneumonia.? She decompensated 10/23 requiring more steroids, BiPAP. She was at home before this admission.She has less respiratory acidosis. However she is fragile, and will always have hypercapnia. Now on oral steroids. She has baseline hypercapnia; while on vent, pCO2 was lower 50-60s, and when off vent, pCO2 was 70-80s. Need to use non-invasive device to help control CO2 retention. 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 Her alpha-1 level July 01, 2022 was 148, normal. Last PFT 2019 showed severe COPD, TLC 140%, RV 269%, FEV1 18%, FEV1 after bronchodilator 24%, DLCO 29%. Needs repeat testing for pulmonary rehab and referral for possible LVRS. (3) Pneumonia: Code(s): J18.9 - Pneumonia, unspecified organism Status: Acute Assessment and Plan: She had aspiration which has resolved. (4) Tobacco abuse: Code(s): Z72.0 - Tobacco use Status: Acute Assessment and Plan: strong tobacco cessation recommendation Plan 1. She is ready to go to [facility] tomorrow. O2 need is lower, 1-3 L/min today. 2. Does not need O2 evaluation because she is not going home, yet. She may continue to improve at rehab. 3. At this time, not interested in Hospice evaluation. She has end stage lung disease, still smokes. Needs to quit. 4. Hopes to improve, get referred to tertiary center for possible transplant evaluation or other surgery such as lung volume reduction. 5. Last PFT 2019; TLC was 140%, RV was 292%, FEV1 was 18%, after bronchodilator, FEV1 was 24%, extremely low. Needs new PFTs, out-patient pulmonary rehab, optimization of COPD meds, referral for options for her end stage COPD. Chest CT June 2022 shows mostly apical disease on the right, scarring on the left; a possible candidate for endobronchial valve or LVRS, if she is not too debilitated. 6. Oral steroids; she has such low lung volumes, she would benefit from having nebulized medications, if she can afford it. She is on Advair HFA 115, Incruse 62.5; I will stop ipratropium as she has LAMA in Incruse. 7. Daliresp 250 mcg a day x 28 days then 500 mcg a day for COPD with frequent admissions and productive cough. Ordered today Subjective Date/time seen: 10/28/22 14:11 Interval history: hospital follow up : Sharifa Mosquera is 57-years old, seen for?COPD exacerbation with acute on chronic hypercarbic and hypoxemic respiratory failure. She was intubated .03.18 through 10.10.22, reintubated . through 10.21.22 due to opioids and aspiration pneumonia. She started using O2 in 2016, was intubated in 2018 and transferred from [facility] in [facility]. She was intubated again a few years later in [facility]. Intubation here was the /4th episode. 10/28/22
[2022-10-28 16:14] LABS: Glucose Point of Care 270 mg/dl (65-105)
[2022-10-28] MEDS: INSULIN ASPART (*BKC) 100 UNITS/ML SUB-Q (17:00)
--- NOTE | 2022-10-28 18:00 | PC.NURSE ---
This patient, Sharifa Mosquera, was transferred to [[id number] ] on 10/28/22 at 1800. Personal belongings sent with patient. Report given to [ANTHONY Arenas @ [id number] ]. Appropriate documentation sent with patient.
[2022-10-28] MEDS: MONTELUKAST SODIUM 10 MG TABLET PO (21:13)
[2022-10-29] VITALS (17 sets, daily range): BP systolic 94–102; BP diastolic 65–79; PULSE 99–115; RESP 14–20; TEMP 36.1–36.8; O2SAT 94–100
[2022-10-29] MEDS: LEVALBUTEROL NEB 1.25 MG/3 ML INHALATION ×4 (01:07→20:12)
[2022-10-29] MEDS: HYDROcodone/acetaminophen (*CRX) 7.5-325 MG TABLET 1 TAB FEED TUBE ×4 (04:10→20:13)
[2022-10-29 04:48] LABS: Estimated CRCL calculation 127 ml/min; Estimated Glomerular Filt Rate > 60
[2022-10-29] MEDS: ALPRAZolam (*CRX) 0.5 MG TABLET PO ×3 (06:18→20:13)
[2022-10-29] MEDS: CENTRAL LINE FLUSH 10 ML IV PUSH (06:19)
[2022-10-29] MEDS: UMECLIDINIUM BROMIDE 62.5 MCG ELLIPTA 1 PUFF INHALATION (07:35)
[2022-10-29] MEDS: FLUTICASONE/SALMETEROL 115-21 MCG INHALER 1 PUFF 2 PUFF INHALATION ×2 (07:40→20:13)
[2022-10-29 07:50] LABS: Glucose Point of Care 97 mg/dl (65-105)
[2022-10-29] MEDS: FLUTICASONE PROPIONATE 0.05% NA SPR 16 GM BTL (*BKC) 2 SPRAY NASAL (08:24)
[2022-10-29] MEDS: predniSONE 20 MG TABLET 40 MG PO (08:24)
[2022-10-29] MEDS: LORATADINE 10 MG TABLET PO (08:24)
[2022-10-29] MEDS: ROFLUMILAST 250 MCG TABLET PO (08:24)
[2022-10-29] MEDS: DOCUSATE SODIUM 100 MG CAPSULE PO (08:24)
[2022-10-29] MEDS: busPIRone HCL 5 MG TABLET 15 MG PO ×2 (08:25→20:12)
[2022-10-29] MEDS: PANTOPRAZOLE 40 MG TABLET PO ×2 (08:25→20:12)
[2022-10-29] MEDS: guaiFENesin 600 MG/DEXTROMETHORPHAN 30 MG SR TAB 12 HR 1 TAB PO ×2 (08:25→20:29)
[2022-10-29] MEDS: AMOXICILLIN/CLAVULANATE K 875-125 MG TAB 1 TABLET PO ×2 (08:25→20:10)
[2022-10-29] MEDS: GABAPENTIN 300 MG CAPSULE 600 MG PO ×2 (08:25→14:16)
[2022-10-29] MEDS: METOPROLOL TARTRATE 12.5 MG TABLET PO ×2 (08:25→20:14)
[2022-10-29] MEDS: VENLAFAXINE HCL XR 75 MG CAP.ER.24H 150 MG PO (08:25)
--- NOTE | 2022-10-29 09:27 | PM.IMPN ---
Progress Note: A&P Assessment and Plan (1) Acute on chronic respiratory failure with hypoxia and hypercapnia: Code(s): J96.21 - Acute and chronic respiratory failure with hypoxia; J96.22 - Acute and chronic respiratory failure with hypercapnia Status: Acute Assessment and Plan: Acute on chronic respiratory failure secondary to COPD exacerbation and pneumonia. Intubated on 10/04/2022. Extubated on 10/10/2022. Oxygen supplementation via nasal cannula. On AVAPS at night. Which she is noncompliant with. Also has underlying diastolic heart failure history of DVT and PE in 2019 hypertension. She was reintubated on 10/15/2022 suspected due to use of narcotics plus minus aspiration pneumonia. Extubated on 10/21/2022. Had another episode again 10/23/2022 restarted on Solu-Medrol placed on BiPAP ABG with respiratory acidosis. Needs AVAPS at night and p.r.n. during daytime. AVAPS night and encouraged her to use. ABG improving but with persistent hypercarbia likely chronic.. Vancomycin stopped. Solu Medrol switched to prednisone and continue taper. Switched Zosyn to Augmentin. Boss catheter removed. For mild tachycardia added beta-maverick metoprolol 12.5 b.i.d.. On Xanax for anxiety along with buspirone and gabapentin and venlafaxine. Continue bronchodilators. Chronic back pain on hydrocodone p.r.n. going to a nursing facility from here at [facility] with [facility] accepted. Prior to hospitalization patient was living at home. At baseline home oxygen. Pulmonary following (2) UTI (urinary tract infection): Qualifiers: Hematuria presence: without hematuria Urinary tract infection type: acute cystitis Qualified Code(s): N30.00 - Acute cystitis without hematuria Code(s): N39.0 - Urinary tract infection, site not specified Status: Acute Assessment and Plan: -10/04: Urine cultures growing Klebs aerogenes ( Enterobacter) -continue ceftriaxone 2 ceftriaxone concludes today with total 7 days course (3) Heart failure with preserved ejection fraction: Qualifiers: Heart failure chronicity: unspecified Qualified Code(s): I50.30 - Unspecified diastolic (congestive) heart failure Code(s): I50.30 - Unspecified diastolic (congestive) heart failure Status: Acute Assessment and Plan: Echo 06/30/22 Summary ? 1. Complete two-dimensional, color flow and Doppler transthoracic echocardiogram is performed. ? 2. Left ventricular chamber dimension is normal. ? 3. Left ventricular systolic function is normal, estimated at 50-55%. ? 4. The left ventricular diastolic function is grade I diastolic dysfunction. ? 5. Right ventricular systolic function is normal. ? 6. There is mild aortic valve calcification. ? 7. The mitral valve annulus is mildly calcified. ? 8. The mitral valve has thickened leaflets. ? 9. There is trace mitral valve regurgitation. ? 10. There is mild tricuspid valve regurgitation. ? 11. There is mild aortic atherosclerosis. ? 12. Normal inferior vena cava with >50% collapse upon inspiration consistent with normal right atrial pressure, 3 mmHg. (4) Chronic obstructive pulmonary disease: Code(s): J44.9 - Chronic obstructive pulmonary disease, unspecified Status: Acute Assessment and Plan: See above (5) Pneumonia: Code(s): J18.9 - Pneumonia, unspecified organism Status: Acute Assessment and Plan: See above (6) History of pulmonary embolus (PE): Code(s): Z86.711 - Personal history of pulmonary embolism Status: Acute Assessment and Plan: Continue apixaban Plan (1) Acute on chronic respiratory failure with hypoxia and hypercapnia: ?Code(s): J96.21 - Acute and chronic respiratory failure with hypoxia; J96.22 - Acute and chronic respiratory failure with hypercapnia ?Status:?Acute ?Assessment and Plan: Acute on chronic respiratory failure secondary to COPD exacerbation and pneumonia.?
--- NOTE | 2022-10-29 10:39 | PCPTNOTE ---
Attempted to see patient for PT, however patient declined due to 9/10 pain. Per RN patient just got pain medication.
[2022-10-29 11:43] LABS: Glucose Point of Care 139 mg/dl (65-105)
[2022-10-29] MEDS: NEOMYCIN/POLYMYXIN/BACITRACIN OINTMENT PACKET 1 PACKET ×2 (11:47→13:13)
--- NOTE | 2022-10-29 12:05 | PM.DS ---
DS: Admitting Diagnosis Discharge Date today Admitting Diagnosis Acute on chronic respiratory failure with hypoxia and hypercapnia: COPD exacerbation Pneumonia DS: Discharge Diagnosis Discharge Diagnosis (1) Aspiration pneumonia: Code(s): J69.0 - Pneumonitis due to inhalation of food and vomit Status: Acute (2) Acute on chronic respiratory failure with hypoxia and hypercapnia: Code(s): J96.21 - Acute and chronic respiratory failure with hypoxia; J96.22 - Acute and chronic respiratory failure with hypercapnia Status: Acute (3) Heart failure with preserved ejection fraction: Qualifiers: Heart failure chronicity: unspecified Qualified Code(s): I50.30 - Unspecified diastolic (congestive) heart failure Code(s): I50.30 - Unspecified diastolic (congestive) heart failure Status: Acute (4) Chronic obstructive pulmonary disease: Code(s): J44.9 - Chronic obstructive pulmonary disease, unspecified Status: Acute (5) Encephalopathy: Code(s): G93.40 - Encephalopathy, unspecified Status: Acute (6) COPD exacerbation: Code(s): J44.1 - Chronic obstructive pulmonary disease with (acute) exacerbation Status: Acute (7) CHF (congestive heart failure): Code(s): I50.9 - Heart failure, unspecified Status: Acute (8) UTI (urinary tract infection): Qualifiers: Urinary tract infection type: acute cystitis Hematuria presence: without hematuria Qualified Code(s): N30.00 - Acute cystitis without hematuria Code(s): N39.0 - Urinary tract infection, site not specified Status: Acute DS: Summary Hospital Course Reason for hospitalization: Short of breath Hospital Course: ?Sharifa Mosquera is 57-years old, seen for?COPD exacerbation with acute on chronic hypercarbic and hypoxemic respiratory failure. She was intubated 6.03.18 through 10.10.22, reintubated .. through 10.21.22 due to opioids and aspiration pneumonia. She feels better today, less short of breath. When she was admitted, she had over 10 episodes of N/V over a few days, no diarrhea. She had no exposure to sick contacts. She was intubated in extubated twice this admission. At home, she continues to smoke, and does not want to use non-invasive device for respiratory support. She is weak, but not in distress. ? 10/26/2022 CXR : Impression:? Improving right lower lobe pneumonia. Mild haziness left lung base, nonspecific. Early pneumonia not excluded. Severe emphysema. 10/27/2022:? No overnight events.? Using her AVAPS trilogy for 6 hours last night.? ABG reviewed from this a.m..? Tachycardia improved however had an episode of SVT and 170s who after breathing treatment earlier today.? Minimal Coughing shortness of breath on exertion. 10/27/2022:? No overnight events.? Using her AVAPS trilogy for 6 hours last night.? ABG reviewed from this a.m..? Tachycardia improved however had an episode of SVT and 170s who after breathing treatment earlier today.? Minimal Coughing shortness of breath on exertion. 10/28/2022:? I saw examined patient at bedside, patient has new issue even overnight, patient tolerates? AVAPS trilogy over night.? Patient still has some cough and shortness breast was mild exertion.? I reviewed the labs today.? 10/28/2022:? I saw examined patient at bedside, patient has new issue even overnight, patient condition continued to improve. patient still has some cough and shortness of breath with exertion, back to baseline.? I reviewed the labs today.? Pulmonary to saw patient, recommend discharge patient today. Patient will be discharged to skilled nursing for rehab today. Patient is afebrile, hemodynamically stable, hospital course uneventful. Will change home medications according to pulmonary issues recommendations Status at Discharge Cognitive/behavioral status at discharge: Stable Time Spent with Patient Time attestation: Total time spent providing and/or coordin
[2022-10-29 12:22] LABS: SARS-CoV-2 RNA PCR Negative (Negative)
--- NOTE | 2022-10-29 14:10 | PM.PNPUL ---
Progress Note: A&P Assessment and Plan (1) Acute on chronic respiratory failure with hypoxia and hypercapnia: Code(s): J96.21 - Acute and chronic respiratory failure with hypoxia; J96.22 - Acute and chronic respiratory failure with hypercapnia Status: Acute Assessment and Plan: Acute on chronic respiratory failure secondary to COPD exacerbation and pneumonia.?Joey has physical exam showing consolidation in the right posterior lung andrea, gradually improving. Now on O2 nasal cannula 1-3 L /min today. She has used AVAPS at night, does not tolerate this well. ? Other conditions include diastolic heart failure, prior DVT, PE in 2019, HTN. She was reintubated on 10/15/2022 suspected due to use of narcotics plus minus aspiration pneumonia.? She decompensated 10/23 requiring more steroids, BiPAP. She was at home before this admission.She has less respiratory acidosis. However she is fragile, and will always have hypercapnia. Now on oral steroids. She has baseline hypercapnia; while on vent, pCO2 was lower 50-60s, and when off vent, pCO2 was 70-80s. Need to use non-invasive device to help control CO2 retention. 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 Her alpha-1 level July 01, 2022 was 148, normal. Last PFT 2019 showed severe COPD, TLC 140%, RV 269%, FEV1 18%, FEV1 after bronchodilator 24%, DLCO 29%. Needs repeat testing for pulmonary rehab and referral for possible LVRS. (3) Pneumonia: Code(s): J18.9 - Pneumonia, unspecified organism Status: Acute Assessment and Plan: She had aspiration which has resolved. (4) Tobacco abuse: Code(s): Z72.0 - Tobacco use Status: Acute Assessment and Plan: strong tobacco cessation recommendation Plan 1. She is ready to go to [facility] today. O2 need is lower, 1-3 L/min today. 2. Does not need O2 evaluation because she is not going home, yet. She may continue to improve at rehab. 3. At this time, not interested in Hospice evaluation. She has end stage lung disease, still was smoking prior to this admission. Needs to quit. 4. Hopes to improve, get referred to tertiary center for possible transplant evaluation or other surgery such as lung volume reduction. 5. Last PFT 2019; TLC was 140%, RV was 292%, FEV1 was 18%, after bronchodilator, FEV1 was 24%, extremely low. Needs new PFTs, out-patient pulmonary rehab, optimization of COPD meds, referral for options for her end stage COPD. Chest CT June 2022 shows mostly apical disease on the right, scarring on the left; a possible candidate for endobronchial valve or LVRS, if she is not too debilitated. 6. Oral steroids; she has such low lung volumes, she would benefit from having nebulized medications, if she can afford it. She is on Advair HFA 115, Incruse 62.5; 7. Daliresp 250 mcg a day x 28 days then 500 mcg a day for COPD with frequent admissions and productive cough. Started October 28. She should leave o nthis medication. 8. She needs a follow up appt with our office when she is out of [facility], 2-3 weeks. Subjective Date/time seen: 10/29/22 14:10 Interval history: hospital follow up : Sharifa Mosquera is 57-years old, seen for?COPD exacerbation with acute on chronic hypercarbic and hypoxemic respiratory failure. She was intubated 6.03.18 through 10.10.22, reintubated . through 10.21.22 due to opioids and aspiration pneumonia. She started using O2 in 2016, was intubated in 2018 and transferred from [facility] in [facility]. She was intuba
--- NOTE | 2022-10-29 14:11 | PCPTNOTE ---
Attempted to see patient for PT, however patient was working with OT.
[2022-10-29 16:28] LABS: Glucose Point of Care 176 mg/dl (65-105)
[2022-10-29] MEDS: MONTELUKAST SODIUM 10 MG TABLET PO (20:12)
[2022-10-30] VITALS (9 sets, daily range): BP systolic 97; BP diastolic 66; PULSE 101–108; RESP 17–20; TEMP 36.2; O2SAT 94–99
[2022-10-30] MEDS: HYDROcodone/acetaminophen (*CRX) 7.5-325 MG TABLET 1 TAB FEED TUBE ×3 (02:12→13:08)
[2022-10-30] MEDS: LEVALBUTEROL NEB 1.25 MG/3 ML INHALATION ×2 (02:13→08:23)
[2022-10-30] MEDS: ALPRAZolam (*CRX) 0.5 MG TABLET PO ×2 (05:53→13:08)
[2022-10-30 08:04] LABS: Glucose Point of Care 106 mg/dl (65-105)
[2022-10-30] MEDS: UMECLIDINIUM BROMIDE 62.5 MCG ELLIPTA 1 PUFF INHALATION (08:24)
[2022-10-30] MEDS: FLUTICASONE/SALMETEROL 115-21 MCG INHALER 1 PUFF 2 PUFF INHALATION (08:24)
[2022-10-30] MEDS: busPIRone HCL 5 MG TABLET 15 MG PO (08:37)
[2022-10-30] MEDS: PANTOPRAZOLE 40 MG TABLET PO (08:37)
[2022-10-30] MEDS: GABAPENTIN 300 MG CAPSULE 600 MG PO ×2 (08:37→13:08)
[2022-10-30] MEDS: FLUTICASONE PROPIONATE 0.05% NA SPR 16 GM BTL (*BKC) 2 SPRAY NASAL (08:37)
[2022-10-30] MEDS: ROFLUMILAST 250 MCG TABLET PO (08:37)
[2022-10-30] MEDS: LORATADINE 10 MG TABLET PO (08:38)
[2022-10-30] MEDS: METOPROLOL TARTRATE 12.5 MG TABLET PO (08:38)
[2022-10-30] MEDS: predniSONE 20 MG TABLET 40 MG PO (08:38)
[2022-10-30] MEDS: guaiFENesin 600 MG/DEXTROMETHORPHAN 30 MG SR TAB 12 HR 1 TAB PO (08:39)
[2022-10-30] MEDS: VENLAFAXINE HCL XR 75 MG CAP.ER.24H 150 MG PO (08:39)
[2022-10-30] MEDS: AMOXICILLIN/CLAVULANATE K 875-125 MG TAB 1 TABLET PO (08:39)
--- NOTE | 2022-10-30 10:46 | PM.DS ---
DS: Admitting Diagnosis Discharge Date Today Admitting Diagnosis (1) Aspiration pneumonia: ?Code(s): J69.0 - Pneumonitis due to inhalation of food and vomit ?Status:?Acute (2) Acute on chronic respiratory failure with hypoxia and hypercapnia: ?Code(s): J96.21 - Acute and chronic respiratory failure with hypoxia; J96.22 - Acute and chronic respiratory failure with hypercapnia ?Status:?Acute (3) Heart failure with preserved ejection fraction: ?Qualifiers: ?Heart failure chronicity:?unspecified? Qualified Code(s):?I50.30 - Unspecified diastolic (congestive) heart failure ?Code(s): I50.30 - Unspecified diastolic (congestive) heart failure ?Status:?Acute (4) Chronic obstructive pulmonary disease: ?Code(s): J44.9 - Chronic obstructive pulmonary disease, unspecified ?Status:?Acute (5) Encephalopathy: ?Code(s): G93.40 - Encephalopathy, unspecified ?Status:?Acute (6) COPD exacerbation: ?Code(s): J44.1 - Chronic obstructive pulmonary disease with (acute) exacerbation ?Status:?Acute (7) CHF (congestive heart failure): ?Code(s): I50.9 - Heart failure, unspecified ?Status:?Acute (8) UTI (urinary tract infection): DS: Summary Hospital Course Reason for hospitalization: Short of breath Hospital Course: Sharifa Mosquera is 57-years old, seen for?COPD exacerbation with acute on chronic hypercarbic and hypoxemic respiratory failure. She was intubated 6.. through 6, reintubated 6.. through 10.21.22 due to opioids and aspiration pneumonia. She feels better today, less short of breath. When she was admitted, she had over 10 episodes of N/V over a few days, no diarrhea. She had no exposure to sick contacts. She was intubated in extubated twice this admission. At home, she continues to smoke, and does not want to use non-invasive device for respiratory support. She is weak, but not in distress. ? 10/26/2022 CXR : Impression:? Improving right lower lobe pneumonia. Mild haziness left lung base, nonspecific. Early pneumonia not excluded. Severe emphysema. 10/27/2022:? No overnight events.? Using her AVAPS trilogy for 6 hours last night.? ABG reviewed from this a.m..? Tachycardia improved however had an episode of SVT and 170s who after breathing treatment earlier today.? Minimal Coughing shortness of breath on exertion. 10/27/2022:? No overnight events.? Using her AVAPS trilogy for 6 hours last night.? ABG reviewed from this a.m..? Tachycardia improved however had an episode of SVT and 170s who after breathing treatment earlier today.? Minimal Coughing shortness of breath on exertion. 10/28/2022:? I saw examined patient at bedside, patient has new issue even overnight, patient tolerates? AVAPS trilogy over night.? Patient still has some cough and shortness breast was mild exertion.? I reviewed the labs today.? 10/29/2022:? I saw examined patient at bedside, patient has new issue even overnight, patient condition continued to improve.? patient still has some cough and shortness of breath with exertion, back? to baseline.? I reviewed the labs today.? Pulmonary to saw patient, recommend discharge patient today.? Patient will be discharged to longterm for rehab today.? Patient is afebrile, hemodynamically stable, hospital course uneventful.? Will change home medications according to pulmonary issues recommendations 10/30 I saw this patient today, patient has no new issue even over the night. Trilogy setup today, patient will be discharged to longterm today for rehab. Patient is afebrile, hemodynamically stable, no apparent distress. Time Spent with Patient Time attestation: Total time spent providing and/or coordinating discharge services: Exam Narrative: GENERAL: Pleasant, in no acute distress. Well-nourished. - EYES: EOMI. Anicteric. - HENT: Moist mucous membranes. - LUNGS: Diminished air entry bilateral - CARDIOVASCULAR: Regular rate and rhythm. N
[2022-10-30 11:31] LABS: Glucose Point of Care 121 mg/dl (65-105)
--- NOTE | 2022-10-30 11:57 | PCNFU ---
Addendum entered by Emily Baker RD, JORDENN 10/30/22 12:57: Nutrition Recommendation: Continue with current diet order and Ensure Compact (chocolate). Original Note: Nutrition Follow-Up Complete: Inadequate energy intake related to NPO as evidenced by mechanical vent, need for full tube feeding. (discontinue, patient extubated 10/22/22, diet initiated). Tolerate tube feeding at goal rate - discontinue, patient no longer receiving tube feeding. Goal: Meet estimated energy requirements via oral intake Pt current nutrition is level 5, minced and moist, general, thickened liquids, ONS. Nutrition recommendation: Last recorded weight is 46.2 kg. Weight up 4 kg/9% x 3 1/2 weeks. Bowel Motility: Last BM today, 10/30/22 Labs Reviewed: POC glucose 121 Meds Noted: [place], Dulcolax, Colace, Effexor Xr, Prednisone, Protonix Skin: No breakdown noted Additional Notes: Discharge pending today to [facility]. Patient reports she is tired this am. She states her appetite is pretty good. It appears that she is eating fairly well (averaging 100% x 2 meals x 2 days; Ensure compact 3-4/day). Patient denies nausea, vomiting, constipation. Diarrhea 2/2 medication. Patient reports pain all over. Patient does not like vanilla Ensure. Will reports to [facility] flavor preference of chocolate Ensure. Nutrition-focused physical findings (10/30/22): Severe muscle loss noted in temporalis muscle. Severe subcutaneous fat loss noted in triceps. Monitoring tolerance, labs, weights, plan of care Follow day 3-5
== END 2022-10-30 13:30 | DRG 130 ==
LOC: ANHICU 10-06 16:03 → ANH3MED 10-11 11:04 → ANHICU 10-15 16:51 → ANH3MEDSUR 10-23 17:39 → ANHIMU 10-24 00:01 → ANHICU 10-24 17:26 → ANHIMU 10-25 17:18 → ANH3MEDSUR 10-28 18:01
PROVIDERS: Internal Medicine; Nurse Practitioner; Physician Assistant; Admitting Provider Family Medicine; PCP Family Medicine; Visit Provider Hospitalist
DX: J96.21 Acute and chronic respiratory failure with hypoxia (principal); J69.0 Pneumonitis due to inhalation of food and vomit; I50.31 Acute diastolic (congestive) heart failure; J18.9 Pneumonia, unspecified organism; R64 Cachexia; E87.8 Other disorders of electrolyte and fluid balance, not elsewhere classified; J43.9 Emphysema, unspecified; J96.22 Acute and chronic respiratory failure with hypercapnia; N39.0 Urinary tract infection, site not specified; B96.89 Other specified bacterial agents as the cause of diseases classified elsewhere; G47.30 Sleep apnea, unspecified; F17.210 Nicotine dependence, cigarettes, uncomplicated; D64.9 Anemia, unspecified; M19.90 Unspecified osteoarthritis, unspecified site; J40 Bronchitis, not specified as acute or chronic; R91.8 Other nonspecific abnormal finding of lung field; F41.9 Anxiety disorder, unspecified; K21.9 Gastro-esophageal reflux disease without esophagitis; Z91.199 Patient's noncompliance with other medical treatment and regimen due to unspecified reason; Z86.718 Personal history of other venous thrombosis and embolism; Z86.711 Personal history of pulmonary embolism; Z87.442 Personal history of urinary calculi; Z68.1 Body mass index [BMI] 19.9 or less, adult; Z20.822 Contact with and (suspected) exposure to COVID-19
CPT/HCPCS: 36415; 36569; 36600; 71045; 80048; 80053; 80202; 81001; 82274; 82375; 82565; 82607; 82728; 82746; 82803; 82805; 82948; 83050; 83540; 83550; 83735; 84100; 84145; 84466; 84478; 85025; 85027; 85046; 85055; 85652; 86738; 87040; 87070; 87077; 87081; 87086; 87088; 87186; 87205; 87449; 87635; 87899; 92610; 94002; 94003; 94640; 94660; 97110; 97161; 97165; 97530; 97535; A9270; C1751; C9113; J0330; J0456; J0613; J0696; J1120; J1756; J1815; J2060; J2250; J2270; J2310; J2405; J2543; J2704; J2920; J2930; J2997; J3010; J3370; J7030; J7050; J7120; J7512

== ENCOUNTER 2023-01-05 20:18 | Inpatient (IN) | payer OTHER, SELFPAY ==
[2023-01-05] VITALS (16 sets, daily range): BP systolic 89–124; BP diastolic 65–94; PULSE 114–120; RESP 13–29; O2SAT 74–100
--- NOTE | ~2023-01-05 | XR_ITS ---
Portable chest x-ray Comparison: 01/05/2023 Clinical History: Respiratory failure Findings: There is severe COPD. There is haziness at the right lung base, suspicious for underlying pneumonia. Cardiomediastinal silhouette is stable. Bones and soft tissues are unremarkable. Impression: Suspected right lower lobe pneumonia. Underlying severe COPD. Reviewed, dictated and finalized at location . Impression: Suspected right lower lobe pneumonia. Underlying severe COPD.
--- NOTE | ~2023-01-05 | XR_ITS ---
Supine portable views of the abdomen Clinical history: Abdominal distention Findings: Bowel gas pattern is nonspecific. Moderate to large amount of stool noted. No evidence for obstruction or free air. No abnormal mass lesion or calcification is seen. Osseous structures are int act. Impression: Nonspecific bowel gas pattern with moderate to large amount of stool. Reviewed, dictated and finalized at [facility]. Impression: Nonspecific bowel gas pattern with moderate to large amount of stool.
--- NOTE | ~2023-01-05 | CT_ITS ---
EXAMINATION:CT diagnostic chest wo con DATE: 01/11/2023 17:45 INDICATION: Pneumonia. Pleural effusion. TECHNIQUE: Computed tomography (CT) of the chest was performed without intravenous contrast. Automate d exposure control and iterative reconstruction technique were employed. The dose-length product (DLP ) was 143.72 mGy-cm. COMPARISON: Chest CT 06/29/2022 FINDINGS: There is severe emphysema. There are worsened airspace opacities with volume loss in left u pper lobe. There are patchy airspace opacities in right upper, middle, and lower lobes with a periphe ral predominance, consistent with pneumonia. There is a chronic 6 mm nodule in right upper lobe, like ly benign. There is a 12 mm nodule in left lower lobe, new from 06/29/2022. Again seen are a few nodule s in left lower lobe measuring up to 5 mm, likely benign. There is a small right pleural effusion. Th e heart size is normal. No pericardial effusion. There is severe cervical spondylosis and mild thorac ic spondylosis. There is a benign bone island in T11 vertebral body. Thoracic dextroscoliosis is note d. IMPRESSION: 1. Multifocal lung disease, right worse than left, consistent with pneumonia. Chest CT without contra st is recommended in 3 months to exclude malignancy. 2. Small right pleural effusion. 3. Severe emphysema. Reviewed, dictated and finalized at location E. IMPRESSION: 1. Multifocal lung disease, right worse than left, consistent with pneumonia. C hest CT without contrast is recommended in 3 months to exclude malignancy. 2. Small right pleural effusion. 3. Severe emphysema.
--- NOTE | ~2023-01-05 | CT_ITS ---
EXAMINATION: CT brain wo con DATE: 01/05/2023 22:29 INDICATION: altered mental status . TECHNIQUE: Computed tomography (CT) of the head was performed without intravenous contrast. The mA wa s adjusted according to patient size. Iterative reconstruction technique was employed. The dose-lengt h product was 1059.33 mGy-cm. COMPARISON: 06/01/2022. FINDINGS: Motion artifacts present that persisted in repeated imaging attempts. No acute intracranial hemorrhage or extra-axial fluid collection. No hydrocephalus, mass, or herniation. No acute ischemic infarct. Unremarkable dural venous sinus attenuation. No acute osseous abnormality. The aerated spaces are clear. IMPRESSION: Motion limited examination. Within that constraint, no definite acute intracranial process detected. Reviewed, dictated and finalized at location K. IMPRESSION: Motion limited examination. Within that constraint, no definite acute intracran ial process detected.
--- NOTE | ~2023-01-05 | XR_ITS ---
EXAMINATION: XR chest 1V Exam Date/Time: 01/05/2023 21:38 CDT HISTORY: dyspnea Comparison: 10/26/2022; CTPA 06/29/2022. RESULT: Lines, tubes, and devices: None. Lungs and pleura: Severe emphysematous change with architectural distortion and scattered areas of s carring. Patchy right lower lung airspace disease in a background reticulonodular opacities. Prominen t nipple shadow over the left lower lung. Cardiomediastinal silhouette: Stable. Other: No acute osseous or upper abdominal finding. IMPRESSION: Right lower lung opacities may represent aspiration and/or infection depending on the clinical contex t, including atypical variants. Reviewed, dictated and finalized at location K. IMPRESSION: Right lower lung opacities may represent aspiration and/or infection depending on the clinical context, including atypical variants.
--- NOTE | ~2023-01-05 | XR_ITS ---
EXAMINATION: XR chest 1V portable DATE: 01/11/2023 17:06 INDICATION: Pneumonia. TECHNIQUE: A single frontal view of the chest was obtained. COMPARISON: Chest 2 views 01/06/2023, chest CT 06/29/2022 FINDINGS: There is severe emphysema. There is chronic scarring in left upper lobe. There are airspace opacities in right mid and lower lung zones. There is a small right pleural effusion. No pneumothora x. The heart size is normal. IMPRESSION: 1. Stable airspace opacities in right mid and lower lung zones, consistent with pneumonia. 2. New small right pleural effusion. 3. Severe emphysema. Reviewed, dictated and finalized at location E.
--- NOTE | 2023-01-05 20:21 | ECG_ITS ---
Measurements Intervals [place] Rate: 119 P: 88 VA: 116 QRS: 84 QRSD: 96 T: 83 QT: 301 QTc: 423 Interpretive Statements SINUS TACHYCARDIA RIGHT ATRIAL ENLARGEMENT POSSIBLE LEFT ATRIAL ENLARGEMENT DELAYED PRECORDIAL R/S TRANSITION ST ELEVATION IN ANTEROLATERAL LEADS, PROBABLY EARLY REPOLARIZATION BASELINE WANDER- I, II, III, AVR, AVL, AVF, V6 ABNORMAL ECG COMPARED TO ECG 07/31/2022 20:41:01 NO SIGNIFICANT CHANGES Electronically Signed On 01-06-2023 6:22:50 CDT by Dick Woodard D.O.
--- NOTE | 2023-01-05 20:28 | PC.NURSE ---
pt. awake and talking at this time w/ assisted ventilation. pt. stating i dont want to be intubated. erp at bedside suggested initiating bipap
[2023-01-05 20:40] LABS: Alveolar/Arterial O2 Gradient 448.7 mmHg; Base Excess ABG 11.3 mEq/l (+/-2.0); Fractional Inspired Oxygen 100 %; HCO3 ABG 42.5 mEq/l (22.0-26.0); Oxygen Content ABG 16.2 %vol (16.0-22.0); Oxygen Saturation ABG 98.5 % (95.0-100.0); Oxyhemoglobin 97.5 % THb (90.0-100.0); PO2 ABG 159.3 mmHg (80.0-100.0); PO2 FiO2 Ratio Arterial Blood 1.59 %; Total Hemoglobin 11.6 g/dL (12.0-18.0)
[2023-01-05 20:42] LABS: pH ABG 7.225 (7.350-7.450)
[2023-01-05 20:43] LABS: Device AMBU BAG; Site Drawn LEFT BRACHIAL
[2023-01-05 21:10] LABS: Hematocrit 34.2 % (37.0-47.0); Hemoglobin 10.2 g/dL (12.0-15.0); Mean Corpuscular HGB Conc 29.8 g/dl (32-36); Mean Corpuscular Hemoglobin 28.5 pg (26-34); Mean Corpuscular Volume 95.5 fl (80-100); Mean Platelet Volume 9.6 fl (7.4-10.4); Platelet Count Result 530 k/mm3 (150-375); Red Blood Count 3.58 M/mm3 (4.2-5.4); Red Cell Distribution Width 12.9 % (11.5-14.5); White Blood Count 45.5 K/mm3 (4.5-10.0)
[2023-01-05 21:20] LABS: Amphetamine Screen Urine Negative (Negative); Barbiturate Screen Urine Negative (Negative); Benzodiazepines Screen Urine Positive (Negative); Cannabinoid Screen Urine Negative (Negative); Cocaine Screen Urine Negative (Negative); Methadone Screen Urine Negative (Negative); Opiate Screen Urine Positive (Negative); Phencyclidine Screen Urine Negative (Negative)
[2023-01-05 21:21] LABS: Lactic Acid Reflex 2.7 mmol/L (0.7-2.0)
[2023-01-05 21:23] LABS: Ethanol < 10 mg/dL (<10)
[2023-01-05 21:25] LABS: Alanine Aminotransferase 16 U/L (6-35); Albumin Level 4.3 g/dL (3.5-5.1); Alkaline Phosphatase 99 U/L (38-126); Aspartate Amino Transferase 28 U/L (14-36); Bilirubin,Total 0.4 mg/dL (0.2-1.3); Blood Urea Nitrogen 15 mg/dL (7-17); Calcium 8.9 mg/dL (8.4-10.2); Carbon Dioxide > 40 mmol/L (22-30); Chloride 82 mmol/L (98-107); Estimated Glomerular Filt Rate > 60; Glucose 222 mg/dL (65-110); Magnesium 2.2 mg/dL (1.6-2.3); Potassium 6.3 mmol/L (3.4-5.0); Sodium 130 mmol/L (137-145)
[2023-01-05 21:26] LABS: Band Neutrophils Percent 13 % (0-6); INR 1.1; Lymphocytes Absolute Manual 0.91 K/mm3 (1.1-4.5); Neutrophils Absolute Manual 44.59 K/mm3 (1.7-7.2); Neutrophils Percent Manual 85 % (46-73); Platelet Estimate Increased (Adequate); Prothrombin Time 14.6 Seconds (11.1-14.7); Total Cells Counted 100
--- NOTE | 2023-01-05 21:26 | PC.NURSE ---
pt. minimally responsive to painful stimuli. ERP made aware and no further orders.
[2023-01-05 21:27] LABS: Partial Thromboplastin Time 38.6 SECONDS (22.3-36.8); Schistocytes None Seen (NORMAL); Stomatocytes 2+ (NORMAL)
[2023-01-05 21:28] LABS: Large Platelets Present
[2023-01-05 21:29] LABS: NT Pro B Type Natriuretic Pept 209 pg/mL (19.9-100); Troponin I < 0.012 ng/mL (0.000-0.034)
[2023-01-05 21:30] LABS: Appearance Urine Clear (Clear); Bacteria Urine None Seen /hpf; Bilirubin Urine Negative (Negative); Blood Urine Negative (Negative); Color Urine Yellow (Yellow); Glucose Urine UA Negative (Negative); Ketones Urine Negative (Negative); Leukocyte Esterase Ur Negative LEU/UL (Negative); Need Manual Microscopic Reviewed; Nitrate Urine Negative (Negative); Protein Urine 1+ mg/dL (Negative); RBC Urine 0-2 /hpf (0-2); Specific Grav Ur 1.022 (1.001-1.035); Squamous Epithelial Cell Urine None seen /hpf (Few); WBC Urine 0-5 /hpf; pH Urine 5.5 (5.0-9.0)
[2023-01-05 21:36] LABS: Add Urine Microscopic? YES
[2023-01-05 21:48] LABS: Potassium 5.7 mmol/L (3.4-5.0)
[2023-01-05] MEDS: SODIUM CHLORIDE 0.9% IV 1,000 ML 999 ML IV CONT (22:00)
[2023-01-05 22:06] LABS: Influenza A QL RT-PCR Negative (Negative); Influenza B QL RT-PCR Negative (Negative); SARS-CoV-2 RNA PCR Negative (Negative)
[2023-01-05 22:09] LABS: Procalcitonin 0.8 ng/mL
[2023-01-05 23:23] LABS: Alveolar/Arterial O2 Gradient 108.1 mmHg; Base Excess ABG 12.2 mEq/l (+/-2.0); Fractional Inspired Oxygen 40 %; HCO3 ABG 42.4 mEq/l (22.0-26.0); Oxygen Content ABG 14.4 %vol (16.0-22.0); Oxygen Saturation ABG 89.7 % (95.0-100.0); PO2 ABG 68.3 mmHg (80.0-100.0); PO2 FiO2 Ratio Arterial Blood 1.71 %; Total Hemoglobin 11.2 g/dL (12.0-18.0)
[2023-01-05 23:26] LABS: Device NON-INVASIVE VENT; Modified Allen's Test Pass; PCO2 ABG 94.6 mmHg (35.0-45.0); Site Drawn LEFT RADIAL; pH ABG 7.269 (7.350-7.450)
[2023-01-05 23:27] LABS: Non-Invasive Inspiratory Pressure 22 CMH2O; Non-Invasive Vent Rate 24 /MIN
[2023-01-05 23:28] LABS: Non-Invasive Expiratory Pressure 8 CMH2O
[2023-01-05] MEDS: AZITHROMYCIN 500 MG/NS 250 ML 500 MG/250 ML BAG 250 MG IVPB (23:51)
[2023-01-06] VITALS (26 sets, daily range): BP systolic 84–150; BP diastolic 61–96; PULSE 21–121; RESP 12–122; TEMP 36.8–38.1; O2SAT 89–100; BMI 17.6
--- NOTE | 2023-01-06 | ED.GENADULT ---
HPI - General Adult General Chief complaint: Shortness of Breath/Dyspnea Stated complaint: unresponsive Time Seen by Provider: 01/05/23 20:20 History of Present Illness HPI narrative: Patient is a 57-year-old female who presents the emergency department with chief complaint of shortness of breath and decreased responsiveness. Patient is a resident of a local nursing facility and a family member visited her and then she became unresponsive the patient has had episodes while she has been hospitalized for her family and her visits her and then she becomes unresponsive history is limited due to the patient being minimally responsive Related Data Home Medications Medication Instructions Recorded Confirmed budesonide-formoterol HFA 160 2 puff inhalation BID 03/06/21 10/04/22 mcg-4.5 mcg/actuation aerosol inhaler (Symbicort) buspirone 10 mg tablet 15 mg PO Q12H 03/06/21 10/04/22 gabapentin 300 mg capsule 600 mg PO TID 03/06/21 10/04/22 umeclidinium 62.5 mcg/actuation 1 inh inhalation DAILY 03/06/21 10/04/22 blister powder for inhalation (Incruse Ellipta) venlafaxine 150 mg 150 mg PO DAILY 03/06/21 10/04/22 capsule,extended release 24 hr hydroxyzine pamoate 50 mg capsule 50 mg PO QID PRN Anxiety 06/25/21 10/04/22 acetaminophen 650 mg tablet 650 mg PO Q6H PRN Pain (Scale 06/28/22 10/04/22 Score 1-3) cyclobenzaprine 10 mg tablet 10 mg PO TID PRN Muscle Spasm 06/28/22 10/04/22 metoprolol succinate 25 mg 25 mg PO DAILY 06/28/22 10/04/22 tablet,extended release 24 hr montelukast 10 mg tablet 10 mg PO HS 06/28/22 10/04/22 albuterol sulfate 90 mcg/actuation 1 - 2 puff inhalation Q6-8H PRN 10/04/22 10/04/22 aerosol inhaler Shortness Of Breath apixaban 5 mg tablet (Eliquis) 5 mg PO BID 10/04/22 10/04/22 fluticasone propionate 50 1 - 2 spray intranasal DAILY 10/04/22 10/04/22 mcg/actuation nasal spray,suspension Allergies Allergy/AdvReac Type Severity Reaction Status Date / Time nitrofurantoin Allergy Unknown HIVES Verified 06/28/22 09:02 oxycodone AdvReac Unknown NAUSEA, Verified 06/28/22 09:02 HEART RACING Review of Systems Review of Systems: A 10 system review of systems was completed on the patient and is negative except for what is stated in the HPI. Nursing and ancillary documentation was reviewed. [facility], [facility] Past Medical History Medical History Anemia Anxiety Arthritis Chronic obstructive pulmonary disease GOLD stage 4. Chronic respiratory failure with hypoxia and hypercapnia 3 L nasal cannula throughout the day. BiPAP with AVAPS settings at nighttime. Deep venous thrombosis Depression Emphysema of lung Gastroesophageal reflux disease Heart failure with preserved ejection fraction Grade 1 diastolic dysfunction. Kidney stones Pneumonia Pulmonary embolism (2019) Pulmonary hypertension Pulmonary nodules Severe chronic obstructive pulmonary disease Tobacco abuse Surgical History Surgical History History of arthroscopy of left knee History of elbow surgery History of inguinal hernia repair History of tonsillectomy History of tubal ligation Family History Family History Father , at 46 of lung CA Lung cancer Mother Cerebrovascular accident Grandparent Diabetes mellitus Sibling Lung cancer Social History Social History Social History: Surrogate medical decision maker: Maria Guadalupe Delgado, daughter. Code status: full code. Smoking packs per day: 2 Smoking cigarettes per day: 40.0 Years smoked: 40 Smoking pack-years: 80.00 Smoking status: Current every day smoker Tobacco type: cigarettes Second hand tobacco smoke exposure: Yes Alcohol intake: never Substance use: n
[2023-01-06 00:08] LABS: Reflex Lactic Acid Yes or No Add Lactic
[2023-01-06 00:19] LABS: Troponin I < 0.012 ng/mL (0.000-0.034)
--- NOTE | 2023-01-06 01:15 | PC.NURSE ---
This patient, Sharifa Mosquera, was admitted to Intensive Care Unit-9. Patient/family oriented to hospital policies and general routines including ID bracelet, bed and alarms, visiting hours, pain management, procedures, bathroom and other care routines, personal items, smoking policy, room service/diet, and visiting hours. Information on how to activate the Rapid Response Team has been discussed. Patient/Family are encouraged to report perceived risks to care and to ask questions if they do not understand what they are told or what they should do.
[2023-01-06] MEDS: SODIUM CHLORIDE 0.9% IV 1,000 ML 125 ML IV CONT (01:27)
--- NOTE | 2023-01-06 01:43 | PC.NURSE ---
pt. had urethral catheter placed. 100 ML drained from bladder. RN unable to chart catheter placement in worklist. order for catheter placement has been entered.
[2023-01-06 02:19] LABS: Alveolar/Arterial O2 Gradient 178.4 mmHg; Base Excess ABG 8.9 mEq/l (+/-2.0); Fractional Inspired Oxygen 50 %; HCO3 ABG 38.3 mEq/l (22.0-26.0); Oxygen Content ABG 14.1 %vol (16.0-22.0); Oxygen Saturation ABG 93.7 % (95.0-100.0); PO2 ABG 81.2 mmHg (80.0-100.0); PO2 FiO2 Ratio Arterial Blood 1.62 %; Total Hemoglobin 10.6 g/dL (12.0-18.0)
[2023-01-06 02:23] LABS: pH ABG 7.266 (7.350-7.450)
[2023-01-06 02:24] LABS: Modified Allen's Test Pass; PCO2 ABG 86.1 mmHg (35.0-45.0); Site Drawn RIGHT RADIAL
[2023-01-06] MEDS: ALBUTEROL SULFATE NEB 2.5 MG/3 ML INH INHALATION ×4 (02:31→20:40)
[2023-01-06] MEDS: IPRATROPIUM BR 0.02% INH SOLN 0.5 MG/2.5 ML VIAL INHALATION ×4 (02:31→20:40)
[2023-01-06 02:35] LABS: Device NON-INVASIVE VENT
[2023-01-06 02:36] LABS: Non-Invasive Expiratory Pressure 16 CMH2O; Non-Invasive Inspiratory Pressure 26 CMH2O; Non-Invasive Vent Rate 28 /MIN
[2023-01-06 02:40] LABS: Lactic Acid 1.4 mmol/L (0.7-2.0)
[2023-01-06] MEDS: VANCOMYCIN 1,250 MG/NS 250 ML 1,250 MG/250 ML BAG 166.67 MG IVPB (02:51)
[2023-01-06 04:25] LABS: Hematocrit 33.7 % (37.0-47.0); Hemoglobin 9.8 g/dL (12.0-15.0); Mean Corpuscular HGB Conc 29.1 g/dl (32-36); Mean Corpuscular Hemoglobin 28.2 pg (26-34); Mean Corpuscular Volume 96.8 fl (80-100); Mean Platelet Volume 9.7 fl (7.4-10.4); Platelet Count Result 433 k/mm3 (150-375); Red Blood Count 3.48 M/mm3 (4.2-5.4); White Blood Count 33.5 K/mm3 (4.5-10.0)
[2023-01-06 04:54] LABS: Alanine Aminotransferase 15 U/L (6-35); Albumin Level 3.5 g/dL (3.5-5.1); Alkaline Phosphatase 85 U/L (38-126); Aspartate Amino Transferase 25 U/L (14-36); Bilirubin,Total 0.2 mg/dL (0.2-1.3); Blood Urea Nitrogen 15 mg/dL (7-17); Calcium 8.2 mg/dL (8.4-10.2); Carbon Dioxide > 40 mmol/L (22-30); Chloride 88 mmol/L (98-107); Estimated CRCL calculation 82 ml/min; Estimated Glomerular Filt Rate > 60; Glucose 134 mg/dL (65-110); Magnesium 2.3 mg/dL (1.6-2.3); Phosphorus 4.2 mg/dL (2.5-4.5); Potassium 4.9 mmol/L (3.4-5.0); Sodium 132 mmol/L (137-145)
[2023-01-06 05:03] LABS: Anisocytosis 1+ (NORMAL); Band Neutrophils Percent 10 % (0-6); Eosinophils Absolute Manual 2.01 K/mm3 (0.02-0.5); Eosinophils Percent Manual 6 % (0-4); Hypochromasia 2+ (NORMAL); Large Platelets Present; Lymphocytes Percent Manual 3 % (18-44); Monocytes Percent Manual 3 % (3-9); Neutrophils Absolute Manual 29.48 K/mm3 (1.7-7.2); Neutrophils Percent Manual 78 % (46-73); Platelet Estimate Increased (Adequate); Total Cells Counted 100
[2023-01-06 05:04] LABS: Schistocytes None Seen (NORMAL); Stomatocytes 2+ (NORMAL)
[2023-01-06 06:05] LABS: Alveolar/Arterial O2 Gradient 70.1 mmHg; Base Excess ABG 10.9 mEq/l (+/-2.0); Fractional Inspired Oxygen 30 %; HCO3 ABG 39.3 mEq/l (22.0-26.0); Oxygen Content ABG 12.3 %vol (16.0-22.0); PO2 ABG 51.8 mmHg (80.0-100.0); PO2 FiO2 Ratio Arterial Blood 1.73 %; Total Hemoglobin 10.2 g/dL (12.0-18.0); pH ABG 7.319 (7.350-7.450)
[2023-01-06 06:08] LABS: Device NON-INVASIVE VENT; Modified Allen's Test Pass; Oxygen Saturation ABG 81.9 % (95.0-100.0); Oxyhemoglobin 85.4 % THb (90.0-100.0); PCO2 ABG 78.3 mmHg (35.0-45.0); Site Drawn RIGHT RADIAL
[2023-01-06 06:09] LABS: Non-Invasive Expiratory Pressure 8 CMH2O; Non-Invasive Inspiratory Pressure 18 CMH2O; Non-Invasive Vent Rate 20 /MIN
[2023-01-06] MEDS: ACETAMINOPHEN 500 MG TABLET 1000 MG PO (06:53)
[2023-01-06 09:02] LABS: Procalcitonin 0.8 ng/mL
[2023-01-06] MEDS: PIPERACILLIN/TAZ 4.5G/NS 100ML 4.5 GM/100 ML BAG IVPB ×3 (10:35→23:14)
--- NOTE | 2023-01-06 10:52 | PM.IMHP ---
H&P: HPI History of Present Illness Date/Time: 01/06/23 10:52 Chief Complaint: Altered mental status Narrative: Patient is a 57-year-old female who presents the emergency department with chief complaint of shortness of breath and decreased responsiveness.? Patient is a resident of a local nursing facility and a family member visited her and then she became unresponsive the patient has had episodes while she has been hospitalized for her family and her visits her and then she becomes unresponsive. history is limited due to the patient being minimally responsive. Workup in the ED so far. Head CT negative for acute findings. White cell count elevated to 33,000. Chest x-ray suggestive of pneumonia Review of Systems Review of Systems: ROS unobtainable: Yes unobtainable due to mental status PMFSH Past Medical History Medical History Anemia Anxiety Arthritis Chronic obstructive pulmonary disease GOLD stage 4. Chronic respiratory failure with hypoxia and hypercapnia 3 L nasal cannula throughout the day. BiPAP with AVAPS settings at nighttime. Deep venous thrombosis Depression Emphysema of lung Gastroesophageal reflux disease Heart failure with preserved ejection fraction Grade 1 diastolic dysfunction. Kidney stones Pneumonia Pulmonary embolism (2019) Pulmonary hypertension Pulmonary nodules Severe chronic obstructive pulmonary disease Tobacco abuse Surgical History Surgical History History of arthroscopy of left knee History of elbow surgery History of inguinal hernia repair History of tonsillectomy History of tubal ligation Family History Family History Father , at 46 of lung [place] Lung cancer Mother Cerebrovascular accident Grandparent Diabetes mellitus Sibling Lung cancer Social History Social History Social History: Surrogate medical decision maker: Maria Guadalupe Delgado, daughter. Code status: full code. Smoking packs per day: 2 Smoking cigarettes per day: 40.0 Years smoked: 40 Smoking pack-years: 80.00 Smoking status: Current every day smoker Tobacco type: cigarettes Second hand tobacco smoke exposure: Yes Alcohol intake: unknown Substance use: unknown Substance use type: does not use Lack of Transportation: No Lack of Food: Never True Current Housing: Decline to Answer Concerned About Future Housing: Decline to Answer Difficulty Paying Gas/Electric Bills: Decline to Answer Difficulty Paying for Meds: Decline to Answer Currently Unemployed: No Education: Decline to Answer Difficulty w/ Childcare or Family Care: Decline to Answer Living arrangements: with family Additional living arrangements comments: with 5 children. Currently living with her cousin in an apartment in [place]. She has to go up 15 steps to get to the apartment. Occupation/Education: unemployed Additional occupation/education comments: Disabled. Spiritual care concerns: No Agree to blood products: Yes Meds Home Medications and Allergies Home Medications Medication Instructions Recorded Confirmed Type budesonide-formoterol HFA 160 2 puff inhalation BID 03/06/21 01/06/23 History mcg-4.5 mcg/actuation aerosol inhaler (Symbicort) buspirone 10 mg tablet 15 mg PO Q12H 03/06/21 01/06/23 History gabapentin 300 mg capsule 600 mg PO TID 03/06/21 01/06/23 History umeclidinium 62.5 mcg/actuation 1 inh inhalation DAILY 03/06/21 01/06/23 History blister powder for inhalation (Incruse Ellipta) venlafaxine 150 mg 150 mg PO DAILY 03/06/21 01/06/23 History capsule,extended release 24 hr hydroxyzine pamoate 50 mg capsule 50 mg PO Q6H PRN Anxiety 06/25/21 01/06/23 History acetaminophen 650 mg tablet 650 mg PO Q
--- NOTE | 2023-01-06 10:58 | WPDCNINT ---
Assessment and Plan Assessment and plan (1) Acute on chronic respiratory failure with hypoxia and hypercapnia: Code(s): J96.21 - Acute and chronic respiratory failure with hypoxia; J96.22 - Acute and chronic respiratory failure with hypercapnia Status: Acute Assessment and Plan: Acute on chronic respiratory failure which is multifactorial and secondary to COPD complicated by pneumonia and use of multiple sedatives including benzodiazepines and opioids. ? Aspiration Hypercapnia and hypoxia improved with BiPAP. Patient is arousable and follows commands. Wean FiO2 down to 30% Blood cultures and MRSA screen pending Procalcitonin level intermediate Continue vancomycin Zosyn and azithromycin Bronchodilators Hold sedatives (2) Pneumonia of right lower lobe due to infectious organism: Code(s): J18.9 - Pneumonia, unspecified organism Status: Acute Assessment and Plan: See above (3) Sepsis: Code(s): A41.9 - Sepsis, unspecified organism Status: Acute Assessment and Plan: Lactic acid was elevated on presentation along with elevated WBC count likely secondary to pneumonia Lactic acid level has normalized with IV fluids Blood pressure adequate at this time Plan DVT prophylaxis -Eliquis Stress ulcer prophylaxis -Protonix Nutrition -NPO at this time Code Status - Full Code Total Critical Care Time - 35 minutes Due to a high probability of clinically significant, life threatening deterioration, the patient required my highest level of preparedness to intervene emergently and I personally spent this critical care time directly and personally managing the patient. This critical care time included obtaining a history; examining the patient; pulse oximetry; ordering and review of studies; arranging urgent treatment with development of a management plan; evaluation of patient's response to treatment; frequent reassessment; and discussions with other providers. It was exclusive of separately billable procedures and treating other patients and teaching time. Please see Assessment and Plan section and the rest of the note for further information on patient assessment and treatment All Source Collection Manager Consult Note Consult date: 01/06/23 Reason for consult: Acute on chronic respiratory failure HPI: Sharifa Mosquera is a 57 year old female smoker with severe advanced COPD, chronic hypoxic and hypercapnic respiratory failure on 3 L nasal cannula and? AVAPS settings at nighttime/prn, heart failure with preserved ejection fraction grade 1 diastolic dysfunction, DVT and PE in 2019 and on anticoagulation, and hypertension who has history of multiple admissions for respiratory failure in the past was brought from custodial with chief complaint of shortness of breath. On presentation patient was drowsy and ABG showed hypercarbic respiratory failure. Patient was given Narcan and placed on BiPAP with improvement in her mental status. She had elevated WBC and mildly elevated lactic acid. Chest x-ray showed infiltrate in the right lower lobe. Urine drug screen was positive for benzodiazepines and opiates. She was negative for influenza and COVID PCR Patient was admitted to ICU for further evaluation management. This morning patient continues to be on BiPAP but is easily arousable. She has been asking for her pain medications this morning. She reports chronic back pain and also admits to being short of breath. She denies any fever, headache, nausea vomiting abdominal pain chest pain stiff. Limited review of system was obtained as patient was on BiPAP. Review of Systems Review of Systems: ROS unobtainable: Yes unobtainable due to medical condition [facility] Past Medical History Medical History Anemia Anxiety Arthritis Chronic obstructive pulmonary disease GOLD stage 4. Chronic respiratory failure with hypoxia and hypercapnia 3 L nasal cannula throughout the
[2023-01-06] MEDS: SODIUM CHLORIDE 0.9% IV 1,000 ML 50 ML IV CONT (12:00)
[2023-01-06] MEDS: ACETAMINOPHEN 325 MG TABLET 650 MG PO ×2 (15:51→22:10)
[2023-01-06] MEDS: APIXABAN 5 MG TABLET PO (20:49)
[2023-01-06] MEDS: PANTOPRAZOLE 40 MG TABLET PO (20:50)
[2023-01-06] MEDS: AZITHROMYCIN 500 MG/NS 250 ML 500 MG/250 ML BAG 250 MG IVPB (20:50)
[2023-01-06] MEDS: VANCOMYCIN 1,000 MG/NS 250 ML 1,000 MG/250 ML BAG 250 MG IVPB (20:51)
[2023-01-06] MEDS: FLUTICASONE/SALMETEROL 115-21 MCG INHALER 1 PUFF 2 PUFF INHALATION (20:58)
[2023-01-06] MEDS: LORazepam INJ (*CRX) 2 MG/ML VIAL 0.5 MG IV PUSH (22:39)
[2023-01-07] VITALS (23 sets, daily range): BP systolic 95–145; BP diastolic 68–88; PULSE 94–121; RESP 13–116; TEMP 36.1–37; O2SAT 89–98
[2023-01-07] MEDS: IPRATROPIUM BR 0.02% INH SOLN 0.5 MG/2.5 ML VIAL INHALATION ×4 (02:57→20:54)
[2023-01-07] MEDS: ALBUTEROL SULFATE NEB 2.5 MG/3 ML INH INHALATION ×4 (02:57→20:55)
[2023-01-07 04:58] LABS: Basophils Absolute Auto 0.1 K/mm3 (0.0-0.1); Basophils Percent Auto 0.3 % (0.2-1.2); Eosinophils Absolute Auto 0.2 K/mm3 (0-0.3); Eosinophils Percent Auto 1.4 % (0-4.4); Hematocrit 31.8 % (37.0-47.0); Hemoglobin 9.1 g/dL (12.0-15.0); Immature Granulocyte Absolute 0.08 K/mm3 (0.00-0.031); Immature Granulocyte Percent A 0.5 % (0-0.5); Lymphocytes Absolute Auto 1.32 K/mm3 (0.9-3.2); Lymphocytes Percent Auto 7.8 % (18.3-44.2); Mean Corpuscular HGB Conc 28.6 g/dl (32-36); Mean Corpuscular Hemoglobin 27.8 pg (26-34); Mean Corpuscular Volume 97.2 fl (80-100); Mean Platelet Volume 10.3 fl (7.4-10.4); Monocytes Absolute Auto 1.1 K/mm3 (0.1-0.6); Monocytes Percent Auto 6.6 % (2.6-8.5); Neutrophils Absolute Auto 14.1 K/mm3 (1.3-6.7); Neutrophils Percent Auto 83.4 % (45.5-73.1); Platelet Count Result 441 k/mm3 (150-375); Red Blood Count 3.27 M/mm3 (4.2-5.4); Red Cell Distribution Width 13.1 % (11.5-14.5); White Blood Count 16.9 K/mm3 (4.5-10.0)
[2023-01-07 05:01] LABS: Blood Urea Nitrogen 13 mg/dL (7-17); Calcium 8.5 mg/dL (8.4-10.2); Carbon Dioxide > 40 mmol/L (22-30); Chloride 91 mmol/L (98-107); Estimated CRCL calculation 99 ml/min; Estimated Glomerular Filt Rate > 60; Glucose 118 mg/dL (65-110); Potassium 4.6 mmol/L (3.4-5.0); Sodium 134 mmol/L (137-145)
[2023-01-07 05:54] LABS: Platelet Estimate Increased (Adequate)
[2023-01-07 05:56] LABS: Schistocytes None Seen (NORMAL)
[2023-01-07] MEDS: ACETAMINOPHEN 325 MG TABLET 650 MG PO (05:59)
[2023-01-07] MEDS: PIPERACILLIN/TAZ 4.5G/NS 100ML 4.5 GM/100 ML BAG IVPB ×4 (06:00→23:46)
[2023-01-07 06:21] LABS: Alveolar/Arterial O2 Gradient 86.5 mmHg; Base Excess ABG 11.2 mEq/l (+/-2.0); Fractional Inspired Oxygen 36 %; HCO3 ABG 41.2 mEq/l (22.0-26.0); Oxygen Content ABG 18.4 %vol (16.0-22.0); Oxygen Saturation ABG 92.5 % (95.0-100.0); Oxyhemoglobin 92.9 % THb (90.0-100.0); PO2 ABG 73.2 mmHg (80.0-100.0); PO2 FiO2 Ratio Arterial Blood 2.03 %; Total Hemoglobin 14.1 g/dL (12.0-18.0); pH ABG 7.311 (7.350-7.450)
[2023-01-07 06:22] LABS: PCO2 ABG 83.6 mmHg (35.0-45.0); Site Drawn RIGHT RADIAL
[2023-01-07 06:23] LABS: Device NASAL CANNULA; Modified Allen's Test Pass
[2023-01-07] MEDS: UMECLIDINIUM BROMIDE 62.5 MCG ELLIPTA 1 PUFF INHALATION (07:34)
[2023-01-07] MEDS: FLUTICASONE/SALMETEROL 115-21 MCG INHALER 1 PUFF 2 PUFF INHALATION ×2 (07:34→20:56)
[2023-01-07] MEDS: busPIRone HCL 10 MG, busPIRone HCL 5 MG 15 MG PO ×2 (08:40→20:40)
[2023-01-07] MEDS: PANTOPRAZOLE 40 MG TABLET PO ×2 (08:40→20:41)
[2023-01-07] MEDS: HYDROcodone/acetaminophen (*CRX) 5-325 MG TABLET 1 TAB PO ×4 (08:40→23:33)
[2023-01-07] MEDS: VENLAFAXINE HCL XR 75 MG CAP.ER.24H 150 MG PO (08:40)
[2023-01-07] MEDS: ROFLUMILAST 250 MCG TABLET PO (08:41)
[2023-01-07] MEDS: APIXABAN 5 MG TABLET PO ×2 (08:41→20:40)
[2023-01-07] MEDS: hydrOXYzine HCL 25 MG TABLET PO ×2 (08:41→18:04)
[2023-01-07] MEDS: METOPROLOL TARTRATE 12.5 MG TABLET PO ×2 (08:41→20:41)
--- NOTE | 2023-01-07 09:15 | PC.NURSE ---
This patient, Sharifa Mosquera, was received from ICU-9 on 01/07/23 at 0915. Patient/family oriented to unit policies and routines. Report received from Aby CRUZ. Pt in bed, IV intact upon arrival.
--- NOTE | 2023-01-07 09:33 | PC.NURSE ---
This patient, Sharifa Mosquera, was transferred to [facility] on 01/07/23 at 0915. Personal belongings sent with patient. Report given to Liset. Appropriate documentation sent with patient.
--- NOTE | 2023-01-07 09:37 | WPDINTPN ---
Progress Note: A&P Assessment and Plan (1) Acute on chronic respiratory failure with hypoxia and hypercapnia: Code(s): J96.21 - Acute and chronic respiratory failure with hypoxia; J96.22 - Acute and chronic respiratory failure with hypercapnia Status: Acute Assessment and Plan: Acute on chronic respiratory failure which is multifactorial and secondary to COPD complicated by pneumonia and use of multiple sedatives including benzodiazepines and opioids. ? Aspiration Hypercapnia and hypoxia improved with BiPAP. Patient is now alert and awake Patient has been switched to nasal cannula this morning. Continue BiPAP p.r.n. and at night Blood cultures is growing Gram-positive cocci in clusters. Identification is pending. Will order further workup depending on the culture results. MRSA screen pending Procalcitonin level intermediate Continue vancomycin Zosyn and azithromycin for now Bronchodilators (2) Pneumonia of right lower lobe due to infectious organism: Code(s): J18.9 - Pneumonia, unspecified organism Status: Acute Assessment and Plan: See above (3) Sepsis: Code(s): A41.9 - Sepsis, unspecified organism Status: Acute Assessment and Plan: Lactic acid was elevated on presentation along with elevated WBC count likely secondary to pneumonia Lactic acid level has normalized with IV fluids Blood pressure adequate at this time (4) Bacteremia: Code(s): R78.81 - Bacteremia Status: Acute Assessment and Plan: See above Plan DVT prophylaxis -Eliquis Stress ulcer prophylaxis -Protonix Nutrition -advance diet Code Status - Full Code Transfer out of ICU today Subjective Date/time seen: 01/07/23 Overnight events reviewed. Afebrile Patient much more awake and alert this morning. She wore BiPAP overnight This morning she states she would like her medications for anxiety and pain to be restarted. She complains pain all over chest and states that she has a lung nodule which has been causing her chest pain for many months now. Pain is all over her chest and worse with deep breathing. She also states that she would like her Xanax to be resume for anxiety. She does admit to having intermittent shortness of breath. She denies any cough fever nausea vomiting abdominal pain. All other systems were reviewed and were negative She is on nasal cannula this morning. Tolerating clear liquid diet and has had good urine output Other vitals acceptable Exam Narrative: General: Pt is alert awake and in no acute distress Lungs/Chest: Trachea central overall decreased BS B/L, crackles at right base. No wheezing, mild tachypnea Cardiac: RRR. Normal S1 S2. No murmurs Circulation: Pedal pulses are intact and symmetrical. Abdomen: Normal bowel sounds.. Soft. NT. ND. Cachectic Extremities: No clubbing, cyanosis or edema. Warm : Boss in place Neurologic: Alert awake and oriented follows commands. Moves all 4 extremities PERRL AO x3 Skin: No Rash Objective Data Vital Signs Vital Signs: Vital Signs - 24 hr 01/06/23 09:45 01/06/23 10:00 01/06/23 10:00 Temperature Pulse Rate 113 H 112 H 111 H Respiratory Rate 23 H 25 H Blood Pressure 109/61 Pulse Oximetry 90 98 Oxygen Delivery BiPAP Oxygen Flow Rate Fraction of Inspired Oxygen 01/06/23 12:00 01/06/23 12:00 01/06/23 12:00 Temperature 37.4 C Pulse Rate 112 H 112 H Respiratory Rate 25 H Blood Pressure 123/96 H Pulse Oximetry 99 98 Oxygen Delivery BiPAP Oxygen Flow Rate Fraction of Inspired Oxygen 35 01/06/23 13:01 01/06/23 13:01 01/06/23 14:00 Temperature Pulse Rate 108 H 108 H 110 H Respiratory Rate 22 H 22 H Blood Pressure Pulse Oximetry 97 Oxygen Delivery BiPAP Oxygen Flow Rate Fraction of Inspired Oxygen 01/06/23 14:00 01/06/23 16:00 01/06/23 16:00 Temperature 37.4 C 37.2 C Pulse Rate 110 H 106 H Respiratory Rate 20 18 Blood Pressur
--- NOTE | 2023-01-07 10:45 | PCNFU ---
Nutrition Follow-Up Complete: Inadequate Energy Expenditure as related to COPD as evidenced by BMI: 17.6 underweight. Goal:Meet estimated nutritional needs Pt current nutrition is Heart healthy. Nutrition recommendation: Add Ensure Enlive TID with meals Last recorded weight is 54.5 kg. Bowel Motility: +BM 01/07 Labs Reviewed: Hgb:9.1, HCT:31.8, NA:134, Cr:0.4, Glu:118 Meds Noted: eliquis Skin: no skin issues noted Additional Notes: Pt moved from ICU to med surg floor. Diet is now heart healthy. Recommendations to start Ensure Enlive TID, will order. Monitor intake. Will monitor, weight, labs oral intake, skin every 3 days.
--- NOTE | 2023-01-07 11:30 | PM.IMPN ---
Progress Note: A&P Assessment and Plan (1) Acute on chronic respiratory failure with hypoxia and hypercapnia: Code(s): J96.21 - Acute and chronic respiratory failure with hypoxia; J96.22 - Acute and chronic respiratory failure with hypercapnia Status: Acute Assessment and Plan: Acute on chronic respiratory failure which is multifactorial and secondary to COPD complicated by pneumonia and use of multiple sedatives including benzodiazepines and opioids. ? Aspiration Hypercapnia and hypoxia improved with BiPAP. Patient is now alert and awake Patient has been switched to nasal cannula this morning. Continue BiPAP p.r.n. and at night Blood cultures is growing Gram-positive cocci in clusters. Identification is pending. Will order further workup depending on the culture results. MRSA screen pending Procalcitonin level intermediate Continue vancomycin Zosyn and azithromycin for now Bronchodilators (2) Pneumonia of right lower lobe due to infectious organism: Code(s): J18.9 - Pneumonia, unspecified organism Status: Acute Assessment and Plan: See above (3) Sepsis: Code(s): A41.9 - Sepsis, unspecified organism Status: Acute Assessment and Plan: Lactic acid was elevated on presentation along with elevated WBC count likely secondary to pneumonia Lactic acid level has normalized with IV fluids Blood pressure adequate at this time (4) Bacteremia: Code(s): R78.81 - Bacteremia Status: Acute Assessment and Plan: See above Subjective Date/time seen: 01/07/23 11:30 Interval history: Remains weak. No overnight issues Review of Systems Review of Systems: Negative other than HPI Exam Narrative: General: Pt is alert awake and in no acute distress Lungs/Chest: Trachea central overall decreased BS B/L, crackles at right base. No wheezing, mild tachypnea Cardiac: RRR. Normal S1 S2. No murmurs Circulation: Pedal pulses are intact and symmetrical. Abdomen: Normal bowel sounds.. Soft. NT. ND. Cachectic Extremities: No clubbing, cyanosis or edema. Warm : Boss in place Neurologic: Alert awake and oriented follows commands. Moves all 4 extremities PERRL AO x3 Skin: No Rash Objective Data Vital Signs Vital Signs: Vital Signs - 24 hr 01/06/23 12:00 01/06/23 12:00 01/06/23 12:00 Temperature 99.4 F Pulse Rate 112 H 112 H Respiratory Rate 25 H Blood Pressure 123/96 H Pulse Oximetry 99 98 Oxygen Delivery BiPAP Oxygen Flow Rate Fraction of Inspired Oxygen 35 01/06/23 13:01 01/06/23 13:01 01/06/23 14:00 Temperature Pulse Rate 108 H 108 H 110 H Respiratory Rate 22 H 22 H Blood Pressure Pulse Oximetry 97 Oxygen Delivery BiPAP Oxygen Flow Rate Fraction of Inspired Oxygen 01/06/23 14:00 01/06/23 16:00 01/06/23 16:00 Temperature 99.4 F 99.0 F Pulse Rate 110 H 106 H Respiratory Rate 20 18 Blood Pressure 107/71 118/79 Pulse Oximetry 89 L 100 100 Oxygen Delivery Nasal Cannula Oxygen Flow Rate 3 Fraction of Inspired Oxygen 01/06/23 16:00 01/06/23 15:37 01/06/23 18:00 Temperature Pulse Rate 105 H 103 H Respiratory Rate Blood Pressure Pulse Oximetry 100 Oxygen Delivery Nasal Cannula Oxygen Flow Rate 3 Fraction of Inspired Oxygen 32 01/06/23 18:00 01/06/23 20:44 01/06/23 20:44 Temperature 98.2 F Pulse Rate 103 H 106 H Respiratory Rate 12 17 106 H Blood Pressure 124/87 Pulse Oximetry 95 91 Oxygen Delivery Nasal Cannula Oxygen Flow Rate 4 Fraction of Inspired Oxygen 01/06/23 20:00 01/06/23 20:00 01/06/23 20:00 Temperature 98.3 F Pulse Rate 106 H 106 H 106 H Respiratory Rate 106 H 15 Blood Pressure 150/88 H Pulse Oximetry 91 95 Oxygen Delivery Nasal Cannula Oxygen Flow Rate 3 Fraction of Inspired Oxygen 32 01/06/23 20:54 01/06/23 23:48 01/06/23 22:00 Temperature Pulse Rate 112 H 107 H 107 H Respiratory Rate 20 22 H
[2023-01-07] MEDS: SODIUM CHLORIDE 0.9% IV 1,000 ML 50 ML IV CONT (12:03)
[2023-01-07] MEDS: ALPRAZolam (*CRX) 0.5 MG TABLET PO ×2 (12:50→23:34)
[2023-01-07 14:26] LABS: Vancomycin Trough 6.7 ug/mL (10.0-20.0)
--- NOTE | 2023-01-07 18:35 | PC.NURSE ---
This patient, Sharifa Mosquera, was transferred to [U [id number]] on 01/07/23 at 1835. Personal belongings sent with patient. Report given to [Nahed CRUZ]. Appropriate documentation sent with patient.
--- NOTE | 2023-01-07 18:39 | PC.NURSE ---
This patient, Sharifa Mosquera, was received from [[id number] ] on 01/07/23 at 6801. Patient/family oriented to unit policies and routines. Report received from ANTHONY Butler @ [phone]
[2023-01-07] MEDS: AZITHROMYCIN 500 MG/NS 250 ML 500 MG/250 ML BAG 250 MG IVPB (20:41)
[2023-01-08] VITALS (28 sets, daily range): BP systolic 112–142; BP diastolic 63–89; PULSE 87–115; RESP 12–26; TEMP 36.3–36.8; O2SAT 92–100
--- NOTE | 2023-01-08 | ECHO_ITS ---
Patient Info Name: Sharifa Mosquera Age: 57 years : 1965 Gender: Female Ht: 66 in Wt: 119 lbs BSA: 1.58 m2 HR: 111 bpm BP: 142 / 84 mmHg Heart Rhythm: Sinus Rhythm Technical Quality: Fair Exam Date: 01/08/2023 10:41 AM Exam Location: [facility] Pulmonary Patient Status: Inpatient Admit Date: 01/06/2023 Staff Ordering Physician: Rich Champagne MD Property Caretaker: Sasha Monroy RDCS Attending Provider: Rich Champagne MD Referring Physician: Mahi SENA; Exam Type: CA echo doppler color flow Study Info Indications - bacteremia Complete two-dimensional, color flow and Doppler transthoracic echocardiogram is performed. Summary 1. Complete two-dimensional, color flow and Doppler transthoracic echocardiogram is performed. 2. Normal left ventricular size and systolic function. 3. Mildly calcified mitral valve annulus. 4. No infectious vegetations are seen and no significant regurgitant lesions are noted. Left Ventricle Left ventricular chamber dimension is normal. Left ventricular systolic function is normal, estimated at 55-60%. The left ventricular diastolic function is grade I diastolic dysfunction. Right Ventricle Right ventricular chamber dimension is normal. Left Atria Left atrial chamber dimension is normal. Right Atria Right atrial chamber dimension is normal. Aortic Valve The aortic valve is normal. Pulmonic Valve The pulmonic valve is normal. Mitral Valve The mitral valve has normal leaflets. The mitral valve annulus is mildly calcified. Tricuspid Valve The tricuspid valve leaflets are normal. Pericardium/Pleural The pericardium appears normal. Aorta The aortic root size at the sinus of Valsalva is normal. Left Ventricular Outflow Tract Name Value Normal LVOT 2D LVOT Diameter 2.0 cm LVOT Doppler LVOT Peak Gradient 4 mmHg LVOT Mean Gradient 2 mmHg LVOT VTI 16 cm LVOT VTI/AV VTI Ratio 0.6 LVOT Stroke Volume 53 ml LVOT CO 5.1 l/min LVOT CI 3.2 l/min/m2 Pulmonic Valve Name Value Normal RVOT Doppler RVOT Peak Gradient 3 mmHg PV Doppler PV Peak Gradient 4 mmHg Mitral Valve Name Value Normal MV Doppler MV Decel Lewis 1,554 cm/s2 MV PHT 19 ms MV Area (PHT) 11.8 cm2 4.0-5.0 MV Diastolic Function
[2023-01-08] MEDS: ALBUTEROL SULFATE NEB 2.5 MG/3 ML INH INHALATION ×4 (02:22→20:08)
[2023-01-08] MEDS: IPRATROPIUM BR 0.02% INH SOLN 0.5 MG/2.5 ML VIAL INHALATION ×4 (02:22→20:08)
[2023-01-08] MEDS: hydrOXYzine HCL 25 MG TABLET PO ×3 (02:51→12:59)
[2023-01-08] MEDS: HYDROcodone/acetaminophen (*CRX) 5-325 MG TABLET 1 TAB PO ×4 (04:19→21:19)
--- NOTE | 2023-01-08 04:32 | PCRCNOTE ---
Daily ABG canceled per RN. Pt out of ICU. Pt is being noncompliant
[2023-01-08 04:56] LABS: Hematocrit 28.4 % (37.0-47.0); Hemoglobin 8.4 g/dL (12.0-15.0); Mean Corpuscular HGB Conc 29.6 g/dl (32-36); Mean Corpuscular Hemoglobin 27.8 pg (26-34); Mean Platelet Volume 10.1 fl (7.4-10.4); Platelet Count Result 363 k/mm3 (150-375); Red Blood Count 3.02 M/mm3 (4.2-5.4); Red Cell Distribution Width 13.1 % (11.5-14.5); White Blood Count 11.2 K/mm3 (4.5-10.0)
[2023-01-08] MEDS: PIPERACILLIN/TAZ 4.5G/NS 100ML 4.5 GM/100 ML BAG IVPB (05:26)
[2023-01-08 06:02] LABS: Alanine Aminotransferase 13 U/L (6-35); Albumin Level 3.1 g/dL (3.5-5.1); Alkaline Phosphatase 83 U/L (38-126); Aspartate Amino Transferase 19 U/L (14-36); Bilirubin,Total 0.2 mg/dL (0.2-1.3); Blood Urea Nitrogen 8 mg/dL (7-17); Calcium 8.2 mg/dL (8.4-10.2); Carbon Dioxide > 40 mmol/L (22-30); Chloride 91 mmol/L (98-107); Estimated CRCL calculation 140 ml/min; Estimated Glomerular Filt Rate > 60; Glucose 186 mg/dL (65-110); Potassium 3.6 mmol/L (3.4-5.0); Sodium 132 mmol/L (137-145)
[2023-01-08] MEDS: busPIRone HCL 10 MG, busPIRone HCL 5 MG 15 MG PO ×2 (08:13→21:17)
[2023-01-08] MEDS: METOPROLOL TARTRATE 12.5 MG TABLET PO ×2 (08:13→21:17)
[2023-01-08] MEDS: VENLAFAXINE HCL XR 75 MG CAP.ER.24H 150 MG PO (08:13)
[2023-01-08] MEDS: PANTOPRAZOLE 40 MG TABLET PO ×2 (08:14→21:18)
[2023-01-08] MEDS: APIXABAN 5 MG TABLET PO ×2 (08:14→21:17)
[2023-01-08] MEDS: ALPRAZolam (*CRX) 0.5 MG TABLET PO ×2 (08:14→14:39)
--- NOTE | 2023-01-08 09:55 | PM.IMPN ---
Progress Note: A&P Assessment and Plan (1) Acute on chronic respiratory failure with hypoxia and hypercapnia: Code(s): J96.21 - Acute and chronic respiratory failure with hypoxia; J96.22 - Acute and chronic respiratory failure with hypercapnia Status: Acute Assessment and Plan: Acute on chronic respiratory failure which is multifactorial and secondary to COPD complicated by pneumonia and use of multiple sedatives including benzodiazepines and opioids. ? Aspiration Hypercapnia and hypoxia improved with BiPAP. Patient is now alert and awake Patient has been switched to nasal cannula this morning. Continue BiPAP p.r.n. and at night Blood cultures is growing Gram-positive cocci in clusters. Identification is pending. Will order further workup depending on the culture results. MRSA screen pending Procalcitonin level intermediate Continue vancomycin Zosyn and azithromycin for now Bronchodilators (2) Pneumonia of right lower lobe due to infectious organism: Code(s): J18.9 - Pneumonia, unspecified organism Status: Acute Assessment and Plan: See above (3) Sepsis: Code(s): A41.9 - Sepsis, unspecified organism Status: Acute Assessment and Plan: Lactic acid was elevated on presentation along with elevated WBC count likely secondary to pneumonia Lactic acid level has normalized with IV fluids Blood pressure adequate at this time Staph epidermidis in aerobic and anaerobic culture. Continue vancomycin. Will check echo to rule out cardiac vegetations (4) Bacteremia: Code(s): R78.81 - Bacteremia Status: Acute Assessment and Plan: See above Subjective Date/time seen: 01/08/23 09:55 Interval history: No overnight issues. Remains the same Review of Systems Review of Systems: Negative other than HPI Exam Narrative: General: Pt is alert awake and in no acute distress Lungs/Chest: Trachea central overall decreased BS B/L, crackles at right base. No wheezing, mild tachypnea Cardiac: RRR. Normal S1 S2. No murmurs Circulation: Pedal pulses are intact and symmetrical. Abdomen: Normal bowel sounds.. Soft. NT. ND. Cachectic Extremities: No clubbing, cyanosis or edema. Warm : Boss in place Neurologic: Alert awake and oriented follows commands. Moves all 4 extremities PERRL AO x3 Skin: No Rash Objective Data Vital Signs Vital Signs: Vital Signs - 24 hr 01/07/23 10:00 01/07/23 14:28 01/07/23 14:29 Temperature Pulse Rate 104 H Respiratory Rate 20 104 H Blood Pressure Pulse Oximetry 93 91 Oxygen Delivery Nasal Cannula Nasal Cannula Oxygen Flow Rate 3 3 Fraction of Inspired Oxygen 01/07/23 14:41 01/07/23 16:00 01/07/23 20:09 Temperature 97.2 F L 96.9 F L Pulse Rate 105 H 108 H 108 H Respiratory Rate 20 22 H 20 Blood Pressure 122/88 139/80 Pulse Oximetry 92 92 Oxygen Delivery Oxygen Flow Rate Fraction of Inspired Oxygen 01/07/23 20:41 01/07/23 20:58 01/07/23 20:58 Temperature Pulse Rate 108 H 102 H Respiratory Rate 20 102 H Blood Pressure Pulse Oximetry 90 Oxygen Delivery Nasal Cannula Oxygen Flow Rate 3 Fraction of Inspired Oxygen 01/07/23 21:15 01/07/23 20:00 01/07/23 20:00 Temperature Pulse Rate 104 H 104 H 108 H Respiratory Rate 20 20 Blood Pressure Pulse Oximetry 90 Oxygen Delivery Nasal Cannula Oxygen Flow Rate 3 Fraction of Inspired Oxygen 32 01/07/23 22:00 01/07/23 23:27 01/08/23 00:00 Temperature 97.6 F Pulse Rate 94 99 99 Respiratory Rate 20 20 Blood Pressure 145/85 H Pulse Oximetry 96 96 Oxygen Delivery Nasal Cannula Oxygen Flow Rate 3 Fraction of Inspired Oxygen 01/08/23 00:00 01/08/23 02:00 01/08/23 01:05 Temperature Pulse Rate 102 H 103 H 100 Respiratory Rate 20 Blood Pressure Pulse Oximetry 94 Oxygen Delivery BiPAP Oxygen Flow Rate Fraction of Inspired Oxygen 01/08/23 02:22 01/08/23
[2023-01-08] MEDS: ROFLUMILAST 250 MCG TABLET PO (11:16)
[2023-01-08] MEDS: cefTRIAXone 2 GM/NS 100 ML 2 GM/100 ML BAG IVPB (12:36)
[2023-01-08] MEDS: SODIUM CHLORIDE 0.9% IV 1,000 ML 50 ML IV CONT (15:20)
[2023-01-08] MEDS: FLUTICASONE/SALMETEROL 115-21 MCG INHALER 1 PUFF 2 PUFF INHALATION (20:08)
[2023-01-08] MEDS: hydrOXYzine HCL 25 MG TABLET 50 MG PO (21:20)
--- NOTE | 2023-01-08 22:25 | PCRCNOTE ---
Pt refused to wear BIPAP at this time
[2023-01-09] VITALS (17 sets, daily range): BP systolic 65–156; BP diastolic 32–94; PULSE 60–127; RESP 16–22; TEMP 36.1–36.9; O2SAT 90–100
[2023-01-09] MEDS: HYDROcodone/acetaminophen (*CRX) 5-325 MG TABLET 1 TAB PO ×6 (00:56→20:31)
[2023-01-09] MEDS: ALPRAZolam (*CRX) 0.5 MG TABLET PO ×4 (00:57→20:31)
[2023-01-09] MEDS: IPRATROPIUM BR 0.02% INH SOLN 0.5 MG/2.5 ML VIAL INHALATION ×3 (01:58→19:58)
[2023-01-09] MEDS: ALBUTEROL SULFATE NEB 2.5 MG/3 ML INH INHALATION ×3 (01:58→19:58)
[2023-01-09 02:14] LABS: Hematocrit 30.7 % (37.0-47.0); Hemoglobin 9.1 g/dL (12.0-15.0); Mean Corpuscular HGB Conc 29.6 g/dl (32-36); Mean Corpuscular Hemoglobin 27.8 pg (26-34); Mean Corpuscular Volume 93.9 fl (80-100); Mean Platelet Volume 9.6 fl (7.4-10.4); Platelet Count Result 413 k/mm3 (150-375); Red Blood Count 3.27 M/mm3 (4.2-5.4); White Blood Count 11.7 K/mm3 (4.5-10.0)
[2023-01-09 02:34] LABS: Alanine Aminotransferase 13 U/L (6-35); Albumin Level 3.1 g/dL (3.5-5.1); Alkaline Phosphatase 93 U/L (38-126); Aspartate Amino Transferase 19 U/L (14-36); Bilirubin,Total 0.3 mg/dL (0.2-1.3); Blood Urea Nitrogen 4 mg/dL (7-17); Calcium 8.4 mg/dL (8.4-10.2); Carbon Dioxide > 40 mmol/L (22-30); Chloride 90 mmol/L (98-107); Estimated CRCL calculation 106 ml/min; Estimated Glomerular Filt Rate > 60; Glucose 120 mg/dL (65-110); Potassium 3.9 mmol/L (3.4-5.0); Sodium 134 mmol/L (137-145)
[2023-01-09 02:47] LABS: Vancomycin Trough 17.8 ug/mL (10.0-20.0)
--- NOTE | 2023-01-09 08:45 | PCRCNOTE ---
Pt said that she would not take her breathing Tx this morning
[2023-01-09] MEDS: APIXABAN 5 MG TABLET PO ×2 (08:52→20:31)
[2023-01-09] MEDS: busPIRone HCL 10 MG, busPIRone HCL 5 MG 15 MG PO ×2 (08:52→20:30)
[2023-01-09] MEDS: PANTOPRAZOLE 40 MG TABLET PO ×2 (08:52→20:31)
[2023-01-09] MEDS: VENLAFAXINE HCL XR 75 MG CAP.ER.24H 150 MG PO (08:52)
[2023-01-09] MEDS: hydrOXYzine HCL 25 MG TABLET 50 MG PO ×2 (08:52→16:33)
[2023-01-09] MEDS: ROFLUMILAST 250 MCG TABLET PO (08:53)
[2023-01-09] MEDS: METOPROLOL TARTRATE 12.5 MG TABLET PO ×2 (08:53→20:29)
--- NOTE | 2023-01-09 09:41 | PC.NURSE ---
Verbal order from Dr. Champagne to downgrade patient to a medical floor. Edward, CCT verified this.
--- NOTE | 2023-01-09 10:50 | PM.IMPN ---
Progress Note: A&P Assessment and Plan (1) Acute on chronic respiratory failure with hypoxia and hypercapnia: Code(s): J96.21 - Acute and chronic respiratory failure with hypoxia; J96.22 - Acute and chronic respiratory failure with hypercapnia Status: Acute Assessment and Plan: Acute on chronic respiratory failure which is multifactorial and secondary to COPD complicated by pneumonia and use of multiple sedatives including benzodiazepines and opioids. ? Aspiration Hypercapnia and hypoxia improved with BiPAP. Continue BiPAP p.r.n. and at night Blood cultures is growing Staph epidermidis and Staph hominis Echo obtained. No vegetations Continue vancomycin. Discontinue Zosyn azithromycin. Bronchodilators (2) Pneumonia of right lower lobe due to infectious organism: Code(s): J18.9 - Pneumonia, unspecified organism Status: Acute Assessment and Plan: See above (3) Sepsis: Code(s): A41.9 - Sepsis, unspecified organism Status: Acute Assessment and Plan: Lactic acid was elevated on presentation along with elevated WBC count likely secondary to pneumonia Lactic acid level has normalized with IV fluids Blood pressure adequate at this time Staph epidermidis and Staph hominis in aerobic and anaerobic culture. Continue vancomycin. Echo negative for vegetations (4) Bacteremia: Code(s): R78.81 - Bacteremia Status: Acute Assessment and Plan: See above Subjective Date/time seen: 01/09/23 10:50 Interval history: Patient refusing BiPAP and other treatment. Only wants Ativan for anxiety Review of Systems Review of Systems: Negative other than HPI Exam Narrative: General: Pt is alert awake and in no acute distress Lungs/Chest: Trachea central overall decreased BS B/L, crackles at right base. No wheezing, mild tachypnea Cardiac: RRR. Normal S1 S2. No murmurs Circulation: Pedal pulses are intact and symmetrical. Abdomen: Normal bowel sounds.. Soft. NT. ND. Cachectic Extremities: No clubbing, cyanosis or edema. Warm : Boss in place Neurologic: Alert awake and oriented follows commands. Moves all 4 extremities PERRL AO x3 Skin: No Rash Objective Data Vital Signs Vital Signs: Vital Signs - 24 hr 01/08/23 11:50 01/08/23 12:00 01/08/23 12:00 Temperature 97.5 F L Pulse Rate 101 H 99 Respiratory Rate 16 Blood Pressure 137/84 Pulse Oximetry 92 95 Oxygen Delivery Nasal Cannula Oxygen Flow Rate 3 Fraction of Inspired Oxygen 01/08/23 14:00 01/08/23 14:25 01/08/23 14:35 Temperature Pulse Rate 107 H 89 92 Respiratory Rate 24 H 26 H Blood Pressure Pulse Oximetry Oxygen Delivery Oxygen Flow Rate Fraction of Inspired Oxygen 01/08/23 16:00 01/08/23 16:00 01/08/23 16:00 Temperature 98.3 F Pulse Rate 104 H 103 H Respiratory Rate 12 Blood Pressure 112/63 Pulse Oximetry 99 95 Oxygen Delivery Nasal Cannula Oxygen Flow Rate 3 Fraction of Inspired Oxygen 01/08/23 18:09 01/08/23 19:30 01/08/23 20:13 Temperature 97.9 F Pulse Rate 103 H 115 H 101 H Respiratory Rate 18 24 H Blood Pressure 132/80 Pulse Oximetry 100 Oxygen Delivery Oxygen Flow Rate Fraction of Inspired Oxygen 01/08/23 20:14 01/08/23 20:23 01/08/23 21:17 Temperature Pulse Rate 102 H 97 111 H Respiratory Rate 20 22 H Blood Pressure Pulse Oximetry 92 Oxygen Delivery Nasal Cannula Oxygen Flow Rate 3 Fraction of Inspired Oxygen 01/08/23 23:10 01/08/23 20:00 01/08/23 20:00 Temperature 97.4 F L Pulse Rate 100 111 H Respiratory Rate 18 Blood Pressure 132/89 Pulse Oximetry 95 100 Oxygen Delivery Nasal Cannula Oxygen Flow Rate 3 Fraction of Inspired Oxygen 01/08/23 22:00 01/09/23 00:00 01/09/23 00:00 Temperature Pulse Rate 87 110 H Respiratory Rate Blood Pressure Pulse Oximetry 95 Oxygen Delivery Nasal Cannula Oxygen Flow Rate 3 F
[2023-01-09] MEDS: cefTRIAXone 2 GM/NS 100 ML 2 GM/100 ML BAG IVPB (12:44)
[2023-01-09] MEDS: FLUTICASONE/SALMETEROL 115-21 MCG INHALER 1 PUFF 2 PUFF INHALATION (19:58)
[2023-01-10] VITALS (13 sets, daily range): BP systolic 130–146; BP diastolic 88–96; PULSE 70–115; RESP 12–20; TEMP 36.2–36.9; O2SAT 91–98
[2023-01-10] MEDS: HYDROcodone/acetaminophen (*CRX) 5-325 MG TABLET 1 TAB PO ×6 (00:17→23:13)
[2023-01-10] MEDS: hydrOXYzine HCL 25 MG TABLET 50 MG PO ×4 (00:23→18:03)
[2023-01-10] MEDS: IPRATROPIUM BR 0.02% INH SOLN 0.5 MG/2.5 ML VIAL INHALATION ×4 (02:26→19:47)
[2023-01-10] MEDS: ALBUTEROL SULFATE NEB 2.5 MG/3 ML INH INHALATION ×4 (02:26→19:47)
[2023-01-10 06:34] LABS: Hemoglobin 9.5 g/dL (12.0-15.0); Mean Corpuscular HGB Conc 29.7 g/dl (32-36); Mean Corpuscular Hemoglobin 27.5 pg (26-34); Mean Corpuscular Volume 92.8 fl (80-100); Mean Platelet Volume 9.9 fl (7.4-10.4); Platelet Count Result 436 k/mm3 (150-375); Red Blood Count 3.45 M/mm3 (4.2-5.4); Red Cell Distribution Width 12.8 % (11.5-14.5); White Blood Count 10.7 K/mm3 (4.5-10.0)
[2023-01-10 06:58] LABS: Alanine Aminotransferase 12 U/L (6-35); Albumin Level 3.2 g/dL (3.5-5.1); Alkaline Phosphatase 90 U/L (38-126); Aspartate Amino Transferase 22 U/L (14-36); Bilirubin,Total 0.5 mg/dL (0.2-1.3); Blood Urea Nitrogen 4 mg/dL (7-17); Calcium 8.3 mg/dL (8.4-10.2); Carbon Dioxide > 40 mmol/L (22-30); Chloride 86 mmol/L (98-107); Estimated CRCL calculation 105 ml/min; Estimated Glomerular Filt Rate > 60; Glucose 85 mg/dL (65-110); Potassium 3.8 mmol/L (3.4-5.0); Sodium 132 mmol/L (137-145)
[2023-01-10] MEDS: FLUTICASONE/SALMETEROL 115-21 MCG INHALER 1 PUFF 2 PUFF INHALATION ×2 (07:02→19:49)
[2023-01-10] MEDS: UMECLIDINIUM BROMIDE 62.5 MCG ELLIPTA 1 PUFF INHALATION (07:02)
[2023-01-10] MEDS: VENLAFAXINE HCL XR 75 MG CAP.ER.24H 150 MG PO (08:19)
[2023-01-10] MEDS: APIXABAN 5 MG TABLET PO ×2 (08:19→20:41)
[2023-01-10] MEDS: busPIRone HCL 10 MG, busPIRone HCL 5 MG 15 MG PO ×2 (08:19→20:41)
[2023-01-10] MEDS: ROFLUMILAST 250 MCG TABLET PO (08:20)
[2023-01-10] MEDS: PANTOPRAZOLE 40 MG TABLET PO ×2 (08:20→20:41)
[2023-01-10] MEDS: METOPROLOL TARTRATE 12.5 MG TABLET PO ×2 (08:20→20:50)
[2023-01-10] MEDS: ALPRAZolam (*CRX) 0.5 MG TABLET PO ×3 (08:23→16:31)
--- NOTE | 2023-01-10 14:14 | PM.IMPN ---
Progress Note: A&P Assessment and Plan (1) Acute on chronic respiratory failure with hypoxia and hypercapnia: Code(s): J96.21 - Acute and chronic respiratory failure with hypoxia; J96.22 - Acute and chronic respiratory failure with hypercapnia Status: Acute Assessment and Plan: Acute on chronic respiratory failure which is multifactorial and secondary to COPD complicated by pneumonia and use of multiple sedatives including benzodiazepines and opioids. ? Aspiration Blood cultures is growing Staph epidermidis and Staph hominis Echo obtained. No vegetations Continue vancomycin. Discontinue Zosyn azithromycin. Bronchodilators continue present care transition to oxygen at 3 liters ok to dc in 1-2 days time [facility] today (2) Pneumonia of right lower lobe due to infectious organism: Code(s): J18.9 - Pneumonia, unspecified organism Status: Acute Assessment and Plan: See above (3) Sepsis: Code(s): A41.9 - Sepsis, unspecified organism Status: Acute Assessment and Plan: Lactic acid was elevated on presentation along with elevated WBC count likely secondary to pneumonia Lactic acid level has normalized with IV fluids Blood pressure adequate at this time Staph epidermidis and Staph hominis in aerobic and anaerobic culture. Continue vancomycin. Echo negative for vegetations (4) Bacteremia: Code(s): R78.81 - Bacteremia Status: Acute Assessment and Plan: See above Subjective Date/time seen: 01/10/23 14:14 Interval history: 57-year-old female who presents the emergency department with chief complaint of shortness of breath and decreased responsiveness.? Patient is a resident of a local nursing facility and a family member visited her and then she became unresponsive the patient has had episodes while she has been hospitalized for her family and her visits her and then she becomes unresponsive. Chest x-ray suggestive of pneumonia.history of severe copd pt continues to smoke Pt is not needing bipap pt doing ok on oxygen back to her baseline at 3 liters continue present care and dc in 1-2 days time Review of Systems Review of Systems: sob improving Exam Narrative: General: Pt is alert awake and in no acute distress Lungs/Chest: Trachea central overall decreased BS B/L, crackles at right base. No wheezing, mild tachypnea Cardiac: RRR. Normal S1 S2. No murmurs Circulation: Pedal pulses are intact and symmetrical. Abdomen: Normal bowel sounds.. Soft. NT. ND. Cachectic Extremities: No clubbing, cyanosis or edema. Warm : Boss in place Neurologic: Alert awake and oriented follows commands. Moves all 4 extremities PERRL AO x3 Skin: No Rash Objective Data Vital Signs Vital Signs: Vital Signs - 24 hr 01/09/23 15:01 01/09/23 15:01 01/09/23 15:08 Temperature Pulse Rate 96 96 100 Respiratory Rate 20 20 20 Blood Pressure Pulse Oximetry 96 Oxygen Delivery Nasal Cannula Oxygen Flow Rate 3 Fraction of Inspired Oxygen 32 01/09/23 15:55 01/09/23 20:00 01/09/23 20:00 Temperature 36.4 C Pulse Rate 60 93 94 Respiratory Rate 18 20 20 Blood Pressure 146/94 H Pulse Oximetry 100 97 Oxygen Delivery Nasal Cannula Oxygen Flow Rate 3 Fraction of Inspired Oxygen 32 01/09/23 20:12 01/09/23 20:29 01/09/23 20:00 Temperature 36.6 C Pulse Rate 97 119 H 94 Respiratory Rate 20 16 Blood Pressure 125/90 Pulse Oximetry 98 Oxygen Delivery Oxygen Flow Rate Fraction of Inspired Oxygen 01/10/23 00:00 01/10/23 02:28 01/09/23 20:00 Temperature 36.4 C Pulse Rate 108 H 95 Respiratory Rate 18 20 Blood Pressure 130/88 Pulse Oximetry 91 91 Oxygen Delivery Nasal Cannula Oxygen Flow Rate 3 Fraction of Inspired Oxygen 01/10/23 04:00 01/10/23 07:25 01/10/23 07:00 Temperature 36.5 C Pulse Rate 115 H 111 H Respiratory Rate 18 18 Blood Pressure 141/90 H Pulse Oximetry 92 92 97
--- NOTE | 2023-01-10 15:25 | PC.NURSE ---
Patient found with no IV access this shift, as told in report. 5 attempts this shift to start an IV including this RN, hemodialysis charge nurse and ENVIRONMENTAL PROJECT MANAGER with no success. Reported to Provider, ordered Repeat Blood Cultures, will continue to monitor patient.
[2023-01-10] MEDS: cefTRIAXone 2 GM/NS 100 ML 2 GM/100 ML BAG IVPB (16:58)
[2023-01-10] MEDS: LORazepam INJ (*CRX) 2 MG/ML VIAL 0.5 MG IV PUSH (23:12)
[2023-01-11] VITALS (16 sets, daily range): BP systolic 116–138; BP diastolic 79–94; PULSE 97–116; RESP 13–22; TEMP 36.1–36.9; O2SAT 91–100
[2023-01-11] MEDS: ALBUTEROL SULFATE NEB 2.5 MG/3 ML INH INHALATION ×3 (01:12→13:26)
[2023-01-11] MEDS: IPRATROPIUM BR 0.02% INH SOLN 0.5 MG/2.5 ML VIAL INHALATION ×3 (01:13→13:26)
[2023-01-11] MEDS: HYDROcodone/acetaminophen (*CRX) 5-325 MG TABLET 1 TAB PO ×5 (03:46→21:02)
[2023-01-11 06:48] LABS: Hematocrit 30.1 % (37.0-47.0); Hemoglobin 9.1 g/dL (12.0-15.0); Mean Corpuscular HGB Conc 30.2 g/dl (32-36); Mean Corpuscular Hemoglobin 27.4 pg (26-34); Mean Corpuscular Volume 90.7 fl (80-100); Mean Platelet Volume 9.7 fl (7.4-10.4); Platelet Count Result 426 k/mm3 (150-375); Red Blood Count 3.32 M/mm3 (4.2-5.4); Red Cell Distribution Width 12.7 % (11.5-14.5); White Blood Count 9.1 K/mm3 (4.5-10.0)
[2023-01-11 07:01] LABS: Alanine Aminotransferase 11 U/L (6-35); Albumin Level 3.1 g/dL (3.5-5.1); Alkaline Phosphatase 83 U/L (38-126); Aspartate Amino Transferase 20 U/L (14-36); Bilirubin,Total 0.2 mg/dL (0.2-1.3); Blood Urea Nitrogen 5 mg/dL (7-17); Calcium 8.3 mg/dL (8.4-10.2); Carbon Dioxide > 40 mmol/L (22-30); Chloride 85 mmol/L (98-107); Estimated CRCL calculation 99 ml/min; Estimated Glomerular Filt Rate > 60; Glucose 167 mg/dL (65-110); Potassium 3.7 mmol/L (3.4-5.0); Sodium 132 mmol/L (137-145)
[2023-01-11] MEDS: FLUTICASONE/SALMETEROL 115-21 MCG INHALER 1 PUFF 2 PUFF INHALATION (07:52)
[2023-01-11] MEDS: UMECLIDINIUM BROMIDE 62.5 MCG ELLIPTA 1 PUFF INHALATION (07:52)
[2023-01-11] MEDS: ALPRAZolam (*CRX) 0.5 MG TABLET PO ×3 (08:19→17:12)
[2023-01-11] MEDS: METOPROLOL TARTRATE 12.5 MG TABLET PO ×2 (08:20→21:01)
[2023-01-11] MEDS: APIXABAN 5 MG TABLET PO ×2 (08:20→21:02)
[2023-01-11] MEDS: PANTOPRAZOLE 40 MG TABLET PO ×2 (08:20→21:02)
[2023-01-11] MEDS: busPIRone HCL 10 MG, busPIRone HCL 5 MG 15 MG PO ×2 (08:20→21:02)
[2023-01-11] MEDS: VENLAFAXINE HCL XR 75 MG CAP.ER.24H 150 MG PO (08:20)
[2023-01-11] MEDS: ROFLUMILAST 250 MCG TABLET PO (08:20)
--- NOTE | 2023-01-11 10:04 | PCPTNOTE ---
Spoke with Dr. Serrano regarding pt's bedrest orders. Per Dr. Serrano, pt able to come off of bedrest to participate in physical therapy. RN aware.
[2023-01-11] MEDS: ALBUTEROL SULFATE (*SP) AEROSOL 1 PUFF INHALATION (10:30)
[2023-01-11] MEDS: hydrOXYzine HCL 25 MG TABLET 50 MG PO ×2 (10:58→21:02)
[2023-01-11] MEDS: cefTRIAXone 2 GM/NS 100 ML 2 GM/100 ML BAG IVPB (12:51)
--- NOTE | 2023-01-11 13:40 | PCNFU ---
Nutrition Follow-Up Complete: Excessive Energy Expenditure as related to COPD as evidenced by BMI: 17.6 underweight. Goal:Meet estimated nutritional needs Pt current nutrition is Heart healthy. Ensure Enlive TID. Nutrition recommendation: Continue with current plan of care. Last recorded weight is 49.4 kg. Bowel Motility: No recent BM recorded Labs Reviewed: Hgb:9.1, HCT:30.1, Alb:3.1, NA:132, BUN:5, Cr:0.4, Glu:167 Meds Noted: eliquis Skin: no skin issues noted Additional Notes: Pt continues on a heart healthy diet, intake remains inadequate at 0-50% of meals. Encourage po intake of meals and supplements. Will monitor, weight, labs oral intake, skin every 5 days.
--- NOTE | 2023-01-11 14:00 | PM.IMPN ---
Progress Note: A&P Assessment and Plan (1) Acute on chronic respiratory failure with hypoxia and hypercapnia: Code(s): J96.21 - Acute and chronic respiratory failure with hypoxia; J96.22 - Acute and chronic respiratory failure with hypercapnia Status: Acute Assessment and Plan: Acute on chronic respiratory failure which is multifactorial and secondary to COPD complicated by pneumonia and use of multiple sedatives including benzodiazepines and opioids. ? Aspiration Blood cultures is growing Staph epidermidis and Staph hominis Echo obtained. No vegetations Continue vancomycin. Discontinue Zosyn azithromycin. Bronchodilators continue present care transition to oxygen at 3 liters ok to dc in 1-2 days time rpt today Consult pulmology pt still needing BIPAP at night for her respiratory failure (2) Pneumonia of right lower lobe due to infectious organism: Code(s): J18.9 - Pneumonia, unspecified organism Status: Acute Assessment and Plan: See above (3) Sepsis: Code(s): A41.9 - Sepsis, unspecified organism Status: Acute Assessment and Plan: Lactic acid was elevated on presentation along with elevated WBC count likely secondary to pneumonia Lactic acid level has normalized with IV fluids Blood pressure adequate at this time Staph epidermidis and Staph hominis in aerobic and anaerobic culture. Continue vancomycin. Echo negative for vegetations (4) Bacteremia: Code(s): R78.81 - Bacteremia Status: Acute Assessment and Plan: See above Subjective Date/time seen: 01/11/23 14:00 Interval history: 57-year-old female who presents the emergency department with chief complaint of shortness of breath and decreased responsiveness.? Patient is a resident of a local nursing facility and a family member visited her and then she became unresponsive the patient has had episodes while she has been hospitalized for her family and her visits her and then she becomes unresponsive. Chest x-ray suggestive of pneumonia.history of severe copd pt continues to smoke Pt needed BIPAP overnite having some chest tightness today feeling SOB Review of Systems Review of Systems: SOB tired with wet cough Exam Narrative: General: Pt is alert awake and in no acute distress Lungs/Chest: Trachea central overall decreased BS B/L, crackles at right base. No wheezing, mild tachypnea Cardiac: RRR. Normal S1 S2. No murmurs Circulation: Pedal pulses are intact and symmetrical. Abdomen: Normal bowel sounds.. Soft. NT. ND. Cachectic Extremities: No clubbing, cyanosis or edema. Warm : Boss in place Neurologic: Alert awake and oriented follows commands. Moves all 4 extremities Skin: No Rash Objective Data Vital Signs Vital Signs: Vital Signs - 24 hr 01/10/23 14:58 01/10/23 19:49 01/10/23 19:49 Temperature 36.9 C Pulse Rate 107 H 104 H 104 H Respiratory Rate 12 18 18 Blood Pressure 146/96 H Pulse Oximetry 92 95 Oxygen Delivery Nasal Cannula Oxygen Flow Rate 3 Fraction of Inspired Oxygen 01/10/23 20:50 01/10/23 22:18 01/10/23 20:00 Temperature 36.2 C L Pulse Rate 70 108 H 70 Respiratory Rate 20 18 Blood Pressure 140/95 H Pulse Oximetry 98 95 Oxygen Delivery Nasal Cannula Oxygen Flow Rate 3 Fraction of Inspired Oxygen 32 01/11/23 00:02 01/11/23 01:13 01/11/23 01:22 Temperature Pulse Rate 102 H 100 104 H Respiratory Rate 20 18 18 Blood Pressure Pulse Oximetry 95 Oxygen Delivery BiPAP Oxygen Flow Rate Fraction of Inspired Oxygen 01/11/23 05:57 01/11/23 07:49 01/11/23 07:51 Temperature 36.9 C Pulse Rate 100 102 H 102 H Respiratory Rate 20 18 18 Blood Pressure 123/79 Pulse Oximetry 96 94 Oxygen Delivery Nasal Cannula Oxygen Flow Rate 3 Fraction of Inspired Oxygen 01/11/23 08:00 01/11/23 08:00 01/11/23 10:05 Temperature Pulse Rate 105 H Respiratory Rate 18 Blood P
[2023-01-11 15:00] LABS: Vancomycin Trough 18.2 ug/mL (10.0-20.0)
--- NOTE | 2023-01-11 15:41 | PM.CNPUL ---
Assessment and Plan Assessment and plan (1) Pneumonia of right lower lobe due to infectious organism: Code(s): J18.9 - Pneumonia, unspecified organism Status: Acute (2) Acute on chronic respiratory failure with hypoxia and hypercapnia: Code(s): J96.21 - Acute and chronic respiratory failure with hypoxia; J96.22 - Acute and chronic respiratory failure with hypercapnia Status: Acute Assessment and Plan: This is a 57-year-old has end-stage emphysema chronic hypoxemic hypercapnic respiratory failure, multiple hospitalizations for COPD exacerbation and acute on chronic hypercapnic respiratory failure hospitalized with right lung pneumonia leukocytosis and hypoxemic hypercapnic respiratory failure. The patient has improved following treatment in the intensive care unit with BiPAP support antibiotics. Currently she is receiving BiPAP support at night supplemental oxygen via nasal cannula during the day. She has no cough wheezing or sputum production. She she is afebrile while on antibiotics. Patient seems to have a problem with BiPAP high pressures. Given her severe hyperinflation she may better tolerate BiPAP using lower pressures. Plan: Continue with current antibiotics bronchodilators as ordered. Will repeat ABGs and change BiPAP settings. (3) Heart failure with preserved ejection fraction: Qualifiers: Heart failure chronicity: unspecified Qualified Code(s): I50.30 - Unspecified diastolic (congestive) heart failure Code(s): I50.30 - Unspecified diastolic (congestive) heart failure Status: Acute (4) Chronic obstructive pulmonary disease: Code(s): J44.9 - Chronic obstructive pulmonary disease, unspecified Status: Acute (5) Protein calorie malnutrition: Code(s): E46 - Unspecified protein-calorie malnutrition Status: Acute (6) Pulmonary nodules: Code(s): R91.8 - Other nonspecific abnormal finding of lung field Status: Chronic (7) Pulmonary hypertension: Code(s): I27.20 - Pulmonary hypertension, unspecified Status: Acute History of Present Illness History of Present Illness Consult date: 01/11/23 Chief complaint: Acute Hypercapnic Respiratory Failure, Right Lower Narrative: This 57-year-old female has known history of end-stage emphysema chronic hypoxemic hypercapnic respiratory failure on ventilatory support at home. She has had history of multiple hospitalizations with previous intubation in the intensive care unit for COPD exacerbations. Patient lives in a [facility]. She was brought into the emergency room because of acute mental status changes and shortness of breath. She was found to have acute on chronic hypercapnic respiratory failure, new extensive infiltrate in right lower lung. The patient was transferred to the intensive care unit where she was treated with antibiotics for pneumonia and noninvasive ventilatory support via BiPAP. She is currently in a regular medical flores, supplemental oxygen via nasal cannula during the day and BiPAP support at night receiving pressures 18/8, respiratory rate 20. Patient is fully awake. She has been complaining of some right lower lateral rib cage pain for a number of weeks. She has no fever chills hemoptysis night sweats. Her shortness of breath has significantly improved and is back at baseline. She has no lower extremity edema. Currently she is on antibiotics with vancomycin and ceftriaxone as well as maintenance bronchodilators for COPD. Pulmonary function testing approximately 3 years ago showed end-stage emphysema with FEV1 0.47 or 80% predicted, severe air trapping and severely reduced lung diffusion capacity all consistent with end-stage emphysema. Last echocardiogram showed elevated pulmonary artery systolic pressure 51 mmHg as well as enlarged left atrium related to left ventricular diastolic dysfunction. Past medical history significant for previous pulmonary embolism, multiple h
[2023-01-11 16:39] LABS: Alveolar/Arterial O2 Gradient 63.6 mmHg; Base Excess ABG 15.4 mEq/l (+/-2.0); Fractional Inspired Oxygen 32 %; HCO3 ABG 43.8 mEq/l (22.0-26.0); Oxygen Saturation ABG 93.7 % (95.0-100.0); Oxyhemoglobin 92.9 % THb (90.0-100.0); PO2 FiO2 Ratio Arterial Blood 2.31 %; Total Hemoglobin 11.4 g/dL (12.0-18.0); pH ABG 7.371 (7.350-7.450)
[2023-01-11 16:48] LABS: Device NASAL CANNULA; Modified Allen's Test Pass; PCO2 ABG 77.4 mmHg (35.0-45.0); Site Drawn LEFT RADIAL
[2023-01-12] VITALS (16 sets, daily range): BP systolic 131–147; BP diastolic 81–85; PULSE 89–112; RESP 12–18; TEMP 36.1–36.9; O2SAT 93–99
[2023-01-12] MEDS: HYDROcodone/acetaminophen (*CRX) 5-325 MG TABLET 1 TAB PO ×5 (01:19→21:43)
[2023-01-12] MEDS: LORazepam INJ (*CRX) 2 MG/ML VIAL 0.5 MG IV PUSH (01:42)
[2023-01-12] MEDS: IPRATROPIUM BR 0.02% INH SOLN 0.5 MG/2.5 ML VIAL INHALATION ×4 (02:51→20:24)
[2023-01-12] MEDS: ALBUTEROL SULFATE NEB 2.5 MG/3 ML INH INHALATION ×4 (02:51→20:24)
[2023-01-12 06:32] LABS: Hematocrit 32.1 % (37.0-47.0); Hemoglobin 9.5 g/dL (12.0-15.0); Mean Corpuscular HGB Conc 29.6 g/dl (32-36); Mean Corpuscular Hemoglobin 27.3 pg (26-34); Mean Corpuscular Volume 92.2 fl (80-100); Mean Platelet Volume 9.5 fl (7.4-10.4); Platelet Count Result 406 k/mm3 (150-375); Red Blood Count 3.48 M/mm3 (4.2-5.4); White Blood Count 11.3 K/mm3 (4.5-10.0)
[2023-01-12 06:46] LABS: Alanine Aminotransferase 11 U/L (6-35); Alkaline Phosphatase 81 U/L (38-126); Aspartate Amino Transferase 21 U/L (14-36); Bilirubin,Total 0.2 mg/dL (0.2-1.3); Blood Urea Nitrogen 6 mg/dL (7-17); Calcium 8.3 mg/dL (8.4-10.2); Carbon Dioxide > 40 mmol/L (22-30); Chloride 88 mmol/L (98-107); Estimated CRCL calculation 93 ml/min; Estimated Glomerular Filt Rate > 60; Glucose 170 mg/dL (65-110); Potassium 3.8 mmol/L (3.4-5.0); Sodium 132 mmol/L (137-145)
[2023-01-12] MEDS: busPIRone HCL 10 MG, busPIRone HCL 5 MG 15 MG PO ×2 (08:42→20:51)
[2023-01-12] MEDS: ROFLUMILAST 250 MCG TABLET PO (08:42)
[2023-01-12] MEDS: PANTOPRAZOLE 40 MG TABLET PO ×2 (08:42→20:50)
[2023-01-12] MEDS: APIXABAN 5 MG TABLET PO ×2 (08:42→20:51)
[2023-01-12] MEDS: VENLAFAXINE HCL XR 75 MG CAP.ER.24H 150 MG PO (08:42)
[2023-01-12] MEDS: METOPROLOL TARTRATE 12.5 MG TABLET PO ×2 (08:44→20:50)
[2023-01-12] MEDS: FLUTICASONE/SALMETEROL 115-21 MCG INHALER 1 PUFF 2 PUFF INHALATION ×2 (08:57→20:24)
[2023-01-12] MEDS: UMECLIDINIUM BROMIDE 62.5 MCG ELLIPTA 1 PUFF INHALATION (08:57)
--- NOTE | 2023-01-12 11:00 | PM.PNPUL ---
Progress Note: A&P Assessment and Plan (1) Pneumonia of right lower lobe due to infectious organism: Code(s): J18.9 - Pneumonia, unspecified organism Status: Acute (2) Sepsis: Code(s): A41.9 - Sepsis, unspecified organism Status: Acute (3) Acute on chronic respiratory failure with hypoxia and hypercapnia: Code(s): J96.21 - Acute and chronic respiratory failure with hypoxia; J96.22 - Acute and chronic respiratory failure with hypercapnia Status: Acute Assessment and Plan: This 57-year-old has end-stage emphysema chronic hypoxemic hypercapnic respiratory failure, multiple hospitalizations for COPD exacerbation and acute on chronic hypercapnic respiratory failure hospitalized with right lung pneumonia leukocytosis and hypoxemic hypercapnic respiratory failure.? On admission the patient had evidence of right lower lobe pneumonia, positive blood cultures for Staph epidermidis and Staph hominis, and acute on chronic hypercapnic respiratory failure. The patient has received BiPAP support initially in the ICU as well as treatment with antibiotics for bacteremia/sepsis. Respiratory status has significantly improved. Patient has just right pleuritic chest pain which has been chronic according to the patient. Chest imaging studies including chest CT have shown persisting infiltrate with some cavitary formation in the left upper lobe as well as in right lower lobe along with small pleural effusion. It is very likely the patient has pleuritic chest pain is related to small pleural effusion. Patient seems to be responding to current antibiotic regimen as leukocytosis is back into normal range. She has severe end-stage emphysema which in conjunction with the chronic infiltrates could indicate low-grade infection like atypical mycobacterial infection. Plan: Continue with current antibiotic regimen for now as patient has responded to it. Have ordered sputum AFBs for atypical mycobacterial infection. If patient cannot bring up any phlegm we may induce sputum. I will continue with current regimen of bronchodilators and BiPAP support at night. BiPAP pressures are lower now as acute hypercapnic respiratory failure has improved. Will follow along with you. (4) Chronic respiratory failure with hypoxia and hypercapnia: Code(s): J96.11 - Chronic respiratory failure with hypoxia; J96.12 - Chronic respiratory failure with hypercapnia Status: Acute (5) Pulmonary hypertension: Code(s): I27.20 - Pulmonary hypertension, unspecified Status: Acute Subjective Date/time seen: 01/12/23 11:00 Interval history: Patient continues to complain of right pleuritic chest pain. She has no fever chills hemoptysis cough or sputum production. She did not use BiPAP support last night. Arterial blood gases and chest CT completed last p.m.. Review of Systems Review of Systems: All systems reviewed & are unremarkable except as noted in HPI and below (HPI and below) Exam Narrative: GENERAL APPEARANCE: Well developed, well nourished, alert and cooperative, and appears to be in no mild respiratory distress while on supplemental oxygen via nasal cannula SKIN: Inspection of the skin reveals no rashes, ulcerations or petechiae. HEENT: Sclerae anicteric and conjunctivae pink and moist. Extraocular movements were intact and pupils were equal. The oral mucosa, hard and soft palate, tongue and posterior pharynx were normal. NECK: Supple. There was no thyroid enlargement, and no tenderness, or masses were felt. CHEST: Increased AP diameter, hyperinflated chest LUNGS: Distant breath sounds bilaterally no wheezing few crackles at right lung base posteriorly CARDIAC: There was a regular rate and rhythm without any murmurs, gallops, rubs. ABDOMEN: Soft and nontender with normal bowel sounds. There was no organomegaly. LYMPH NODES: No lymphadenopathy was appreciated in the neck, EXTREMITIES: No cyanosis, clubbing or edema. NEUR
[2023-01-12] MEDS: cefTRIAXone 2 GM/NS 100 ML 2 GM/100 ML BAG IVPB (11:43)
[2023-01-12] MEDS: ALPRAZolam (*CRX) 0.5 MG TABLET PO ×3 (12:55→21:44)
--- NOTE | 2023-01-12 12:58 | PM.IMPN ---
Progress Note: A&P Assessment and Plan (1) Acute on chronic respiratory failure with hypoxia and hypercapnia: Code(s): J96.21 - Acute and chronic respiratory failure with hypoxia; J96.22 - Acute and chronic respiratory failure with hypercapnia Status: Acute Assessment and Plan: Acute on chronic respiratory failure which is multifactorial and secondary to COPD complicated by pneumonia and use of multiple sedatives including benzodiazepines and opioids. ? Aspiration Blood cultures is growing Staph epidermidis and Staph hominis Echo obtained. No vegetations Continue vancomycin+ rocephin. Discontinue Zosyn azithromycin. Bronchodilators continue present care transition to oxygen at 3 liters rpt today Consult pulmology pt still needing BIPAP 2 nights ago for her respiratory failure Continue current treatments of IV vancomycin and IV rocephin (2) Pneumonia of right lower lobe due to infectious organism: Code(s): J18.9 - Pneumonia, unspecified organism Status: Acute Assessment and Plan: See above (3) Sepsis: Code(s): A41.9 - Sepsis, unspecified organism Status: Acute Assessment and Plan: Lactic acid was elevated on presentation along with elevated WBC count likely secondary to pneumonia Lactic acid level has normalized with IV fluids Blood pressure adequate at this time Staph epidermidis and Staph hominis in aerobic and anaerobic culture. Continue vancomycin. Echo negative for vegetations (4) Bacteremia: Code(s): R78.81 - Bacteremia Status: Acute Assessment and Plan: See above Subjective Date/time seen: 01/12/23 12:58 Interval history: 57-year-old female who presents the emergency department with chief complaint of shortness of breath and decreased responsiveness.? Patient is a resident of a local nursing facility and a family member visited her and then she became unresponsive the patient has had episodes while she has been hospitalized for her family and her visits her and then she becomes unresponsive. Chest x-ray suggestive of pneumonia.history of severe copd pt continues to smoke Pt states she feels unwell today pt is down to her 3 liters of oxygen which is her baseline needed to use bipap 2 nights ago Pulmology on board helping us to manage case Review of Systems Review of Systems: SOB unwell tired Exam Narrative: General: Pt is alert awake and in no acute distress Lungs/Chest: Trachea central overall decreased BS B/L, crackles at right base. No wheezing, mild tachypnea Cardiac: RRR. Normal S1 S2. No murmurs Circulation: Pedal pulses are intact and symmetrical. Abdomen: Normal bowel sounds.. Soft. NT. ND. Cachectic Extremities: No clubbing, cyanosis or edema. Warm : Boss in place Neurologic: Alert awake and oriented follows commands. Moves all 4 extremities Skin: No Rash Objective Data Vital Signs Vital Signs: Vital Signs - 24 hr 01/11/23 13:27 01/11/23 13:29 01/11/23 13:37 Temperature Pulse Rate 97 97 99 Respiratory Rate 18 18 18 Blood Pressure Pulse Oximetry 97 Oxygen Delivery Nasal Cannula Oxygen Flow Rate 4 01/11/23 14:00 01/11/23 21:01 01/11/23 20:00 Temperature 36.3 C L Pulse Rate 103 H 116 H Respiratory Rate 20 Blood Pressure 116/79 Pulse Oximetry 97 97 Oxygen Delivery Nasal Cannula Oxygen Flow Rate 3 01/11/23 23:51 01/12/23 02:52 01/11/23 23:00 Temperature 36.1 C L Pulse Rate 105 H 96 99 Respiratory Rate 13 18 18 Blood Pressure 138/94 H Pulse Oximetry 100 96 Oxygen Delivery Nasal Cannula Oxygen Flow Rate 3 01/12/23 03:05 01/12/23 05:55 01/12/23 08:44 Temperature 36.9 C Pulse Rate 97 99 107 H Respiratory Rate 18 12 Blood Pressure 147/81 H Pulse Oximetry 94 Oxygen Delivery Oxygen Flow Rate 01/12/23 08:55 01/12/23 08:50 01/12/23 09:12 Temperature Pulse Rate 112 H 112 H 98 Respiratory Rate 18 18 Blood Pres
[2023-01-13] VITALS (15 sets, daily range): BP systolic 98–130; BP diastolic 62–81; PULSE 95–110; RESP 18–20; TEMP 36.4–36.8; O2SAT 95–98
[2023-01-13] MEDS: HYDROcodone/acetaminophen (*CRX) 5-325 MG TABLET 1 TAB PO ×6 (01:38→21:39)
[2023-01-13] MEDS: ALBUTEROL SULFATE NEB 2.5 MG/3 ML INH INHALATION ×4 (02:05→20:22)
[2023-01-13] MEDS: IPRATROPIUM BR 0.02% INH SOLN 0.5 MG/2.5 ML VIAL INHALATION ×4 (02:05→20:22)
[2023-01-13] MEDS: SODIUM CHLOR 3% 15 ML NEB (RESPIRATORY THERAPY) 6 ML INHALATION (05:30)
[2023-01-13] MEDS: ALPRAZolam (*CRX) 0.5 MG TABLET PO ×2 (05:48→15:41)
--- NOTE | 2023-01-13 06:16 | PCRCNOTE ---
No sputum obtained during sputum induction. Specimen cup left at bedside.
[2023-01-13] MEDS: FLUTICASONE/SALMETEROL 115-21 MCG INHALER 1 PUFF 2 PUFF INHALATION ×2 (07:01→20:34)
[2023-01-13] MEDS: UMECLIDINIUM BROMIDE 62.5 MCG ELLIPTA 1 PUFF INHALATION (07:01)
[2023-01-13 07:07] LABS: Hematocrit 32.6 % (37.0-47.0); Hemoglobin 9.7 g/dL (12.0-15.0); Mean Corpuscular HGB Conc 29.8 g/dl (32-36); Mean Corpuscular Hemoglobin 27.2 pg (26-34); Mean Corpuscular Volume 91.6 fl (80-100); Mean Platelet Volume 9.6 fl (7.4-10.4); Platelet Count Result 426 k/mm3 (150-375); Red Blood Count 3.56 M/mm3 (4.2-5.4); Red Cell Distribution Width 12.9 % (11.5-14.5); White Blood Count 9.9 K/mm3 (4.5-10.0)
[2023-01-13 07:50] LABS: Blood Urea Nitrogen 7 mg/dL (7-17); Calcium 8.4 mg/dL (8.4-10.2); Carbon Dioxide > 40 mmol/L (22-30); Chloride 86 mmol/L (98-107); Estimated CRCL calculation 90 ml/min; Estimated Glomerular Filt Rate > 60; Glucose 199 mg/dL (65-110); Sodium 130 mmol/L (137-145)
[2023-01-13] MEDS: busPIRone HCL 10 MG, busPIRone HCL 5 MG 15 MG PO ×2 (08:34→20:31)
[2023-01-13] MEDS: APIXABAN 5 MG TABLET PO ×2 (08:34→20:32)
[2023-01-13] MEDS: ROFLUMILAST 250 MCG TABLET PO (08:34)
[2023-01-13] MEDS: VENLAFAXINE HCL XR 75 MG CAP.ER.24H 150 MG PO (08:34)
[2023-01-13] MEDS: METOPROLOL TARTRATE 12.5 MG TABLET PO ×2 (08:34→20:31)
[2023-01-13] MEDS: PANTOPRAZOLE 40 MG TABLET PO ×2 (08:35→20:31)
--- NOTE | 2023-01-13 09:39 | PM.PNPUL ---
Progress Note: A&P Assessment and Plan (1) Pneumonia of right lower lobe due to infectious organism: Code(s): J18.9 - Pneumonia, unspecified organism Status: Acute (2) Sepsis: Code(s): A41.9 - Sepsis, unspecified organism Status: Acute (3) Acute on chronic respiratory failure with hypoxia and hypercapnia: Code(s): J96.21 - Acute and chronic respiratory failure with hypoxia; J96.22 - Acute and chronic respiratory failure with hypercapnia Status: Acute Assessment and Plan: This 57-year-old has end-stage emphysema chronic hypoxemic hypercapnic respiratory failure, multiple hospitalizations for COPD exacerbation and acute on chronic hypercapnic respiratory failure hospitalized with right lung pneumonia leukocytosis and hypoxemic hypercapnic respiratory failure.? On admission the patient had evidence of right lower lobe pneumonia, positive blood cultures for Staph epidermidis and Staph hominis, and acute on chronic hypercapnic respiratory failure. The patient has received BiPAP support initially in the ICU as well as treatment with antibiotics for bacteremia/sepsis. Respiratory status has significantly improved. Patient has just right pleuritic chest pain which has been chronic according to the patient. Chest imaging studies including chest CT have shown persistent infiltrate with some cavitary formation in the left upper lobe as well as in right lower lobe along with small pleural effusion. It is very likely the pleuritic chest pain is related to small pleural effusion. Patient seems to be responding to current antibiotic regimen as leukocytosis is back into normal range. She has severe end-stage emphysema which in conjunction with the chronic infiltrates could indicate low-grade infection like atypical mycobacterial infection. Plan: Continue with current antibiotic regimen for now as patient has responded to it. Have ordered sputum AFBs for atypical mycobacterial infection. Patient has not been able to cough up any phlegm for sputum AFBs. We may consider sputum induction. Continue with current antibiotic regimen for the total of 7 days although staphylococcus epidermidis/Hominis could be due to skin contamination. Continue with bronchodilators DVT prophylaxis out of bed to chair. Encourage patient to use BiPAP support at night. (4) Chronic respiratory failure with hypoxia and hypercapnia: Code(s): J96.11 - Chronic respiratory failure with hypoxia; J96.12 - Chronic respiratory failure with hypercapnia Status: Acute (5) Pulmonary hypertension: Code(s): I27.20 - Pulmonary hypertension, unspecified Status: Acute Subjective Date/time seen: 01/13/23 09:39 Interval history: Patient continues to have a right pleuritic chest pain but less than before. She has no cough sputum production fever chills hemoptysis night sweats. Has not used BiPAP support last night. Remains on vancomycin. WBC back into the normal range. Review of Systems Review of Systems: All systems reviewed & are unremarkable except as noted in HPI and below (HPI and below) Exam Narrative: GENERAL APPEARANCE: Well developed, well nourished, alert and cooperative, and appears to be in no mild respiratory distress while on supplemental oxygen via nasal cannula SKIN: Inspection of the skin reveals no rashes, ulcerations or petechiae. HEENT: Sclerae anicteric and conjunctivae pink and moist. Extraocular movements were intact and pupils were equal. The oral mucosa, hard and soft palate, tongue and posterior pharynx were normal. NECK: Supple. There was no thyroid enlargement, and no tenderness, or masses were felt. CHEST: Increased AP diameter, hyperinflated chest LUNGS: Distant breath sounds bilaterally no wheezing few crackles at right lung base posteriorly CARDIAC: There was a regular rate and rhythm without any murmurs, gallops, rubs. ABDOMEN: Soft and nontender with normal bowel sounds. There was no organomeg
[2023-01-13] MEDS: hydrOXYzine HCL 25 MG TABLET 50 MG PO ×2 (10:13→21:17)
--- NOTE | 2023-01-13 11:13 | PM.IMPN ---
Progress Note: A&P Assessment and Plan (1) Acute on chronic respiratory failure with hypoxia and hypercapnia: Code(s): J96.21 - Acute and chronic respiratory failure with hypoxia; J96.22 - Acute and chronic respiratory failure with hypercapnia Status: Acute Assessment and Plan: Acute on chronic respiratory failure which is multifactorial and secondary to COPD complicated by pneumonia and use of multiple sedatives including benzodiazepines and opioids. ? Aspiration Blood cultures is growing Staph epidermidis and Staph hominis Echo obtained. No vegetations Continue vancomycin+ rocephin. Discontinue Zosyn azithromycin. Bronchodilators continue present care transition to oxygen at 3 liters rpt bc today Consult pulmology pt still needing BIPAP 2 nights ago for her respiratory failure Continue current treatments of IV vancomycin and IV rocephin (2) Pneumonia of right lower lobe due to infectious organism: Code(s): J18.9 - Pneumonia, unspecified organism Status: Acute Assessment and Plan: See above (3) Sepsis: Code(s): A41.9 - Sepsis, unspecified organism Status: Acute Assessment and Plan: Lactic acid was elevated on presentation along with elevated WBC count likely secondary to pneumonia Lactic acid level has normalized with IV fluids Blood pressure adequate at this time Staph epidermidis and Staph hominis in aerobic and anaerobic culture. Continue vancomycin. Echo negative for vegetations (4) Bacteremia: Code(s): R78.81 - Bacteremia Status: Acute Assessment and Plan: See above Subjective Date/time seen: 01/13/23 11:13 Interval history: Breathing is better. Eating cultures. Exam Narrative: General: Pt is alert awake and in no acute distress Lungs/Chest: Trachea central overall decreased BS B/L, crackles at right base. No wheezing, mild tachypnea Cardiac: RRR. Normal S1 S2. No murmurs Circulation: Pedal pulses are intact and symmetrical. Abdomen: Normal bowel sounds.. Soft. NT. ND. Cachectic Extremities: No clubbing, cyanosis or edema. Warm : Boss in place Neurologic: Alert awake and oriented follows commands. Moves all 4 extremities Skin: No Rash Objective Data Vital Signs Vital Signs: Vital Signs - 24 hr 01/12/23 14:00 01/12/23 14:06 01/12/23 20:25 Temperature 97.4 F L Pulse Rate 103 H 89 103 H Respiratory Rate 14 18 18 Blood Pressure 131/85 Pulse Oximetry 99 Oxygen Delivery Oxygen Flow Rate Fraction of Inspired Oxygen 01/12/23 20:29 01/12/23 20:47 01/12/23 20:50 Temperature Pulse Rate 103 H 100 100 Respiratory Rate 18 Blood Pressure Pulse Oximetry 94 Oxygen Delivery Nasal Cannula Oxygen Flow Rate 3 Fraction of Inspired Oxygen 01/12/23 20:00 01/12/23 23:39 01/13/23 02:05 Temperature 97.0 F L Pulse Rate 100 106 H 95 Respiratory Rate 18 14 18 Blood Pressure 146/84 H Pulse Oximetry 94 97 Oxygen Delivery Nasal Cannula Oxygen Flow Rate 3 Fraction of Inspired Oxygen 32 01/13/23 02:20 01/13/23 05:30 01/13/23 07:00 Temperature Pulse Rate 99 101 H 95 Respiratory Rate 18 18 18 Blood Pressure Pulse Oximetry 97 Oxygen Delivery Nasal Cannula Oxygen Flow Rate 3 Fraction of Inspired Oxygen 01/13/23 07:00 01/13/23 08:10 01/13/23 08:34 Temperature Pulse Rate 95 98 96 Respiratory Rate 18 18 Blood Pressure Pulse Oximetry Oxygen Delivery Oxygen Flow Rate Fraction of Inspired Oxygen Intake/Output Intake/Output: Intake & Output 01/10/23 01/11/23 01/12/23 01/13/23 23:59 23:59 23:59 23:59 Intake Total 1580 1300 2310 1250 Output Total 1875 3350 [facility] -295 -2049 2310 1250 Meds/Results Medications: Active Medications Generic Name Dose Route Start Last Admin Trade Name Freq PRN Reason Stop Dose Admin Acetaminophen 650 mg 01/06/23 15:34 01/07/23 05:59 Acetaminophen 325 Mg Tablet PO 650
[2023-01-13 15:14] LABS: Vancomycin Trough 24.5 ug/mL (10.0-20.0)
[2023-01-14] VITALS (17 sets, daily range): BP systolic 127–136; BP diastolic 67–93; PULSE 95–104; RESP 14–22; TEMP 36.2–36.6; O2SAT 95–100
[2023-01-14] MEDS: VANCOMYCIN 1,000 MG/NS 250 ML 1,000 MG/250 ML BAG 250 MG IVPB ×2 (01:25→18:50)
[2023-01-14] MEDS: ALPRAZolam (*CRX) 0.5 MG TABLET PO ×3 (01:40→22:50)
[2023-01-14] MEDS: HYDROcodone/acetaminophen (*CRX) 5-325 MG TABLET 1 TAB PO ×6 (01:40→22:50)
[2023-01-14] MEDS: IPRATROPIUM BR 0.02% INH SOLN 0.5 MG/2.5 ML VIAL INHALATION ×4 (02:44→19:58)
[2023-01-14] MEDS: ALBUTEROL SULFATE NEB 2.5 MG/3 ML INH INHALATION ×4 (02:44→19:59)
[2023-01-14] MEDS: hydrOXYzine HCL 25 MG TABLET 50 MG PO ×2 (05:50→14:46)
--- NOTE | 2023-01-14 06:52 | PCRCNOTE ---
Checked with Pt at 0500 for sputum and she said that she was not able to at 01/14/2023 0500
[2023-01-14] MEDS: FLUTICASONE/SALMETEROL 115-21 MCG INHALER 1 PUFF 2 PUFF INHALATION ×2 (07:38→19:59)
[2023-01-14] MEDS: UMECLIDINIUM BROMIDE 62.5 MCG ELLIPTA 1 PUFF INHALATION (07:38)
[2023-01-14] MEDS: busPIRone HCL 10 MG, busPIRone HCL 5 MG 15 MG PO ×2 (08:56→20:50)
[2023-01-14] MEDS: PANTOPRAZOLE 40 MG TABLET PO ×2 (08:56→20:51)
[2023-01-14] MEDS: VENLAFAXINE HCL XR 75 MG CAP.ER.24H 150 MG PO (08:56)
[2023-01-14] MEDS: METOPROLOL TARTRATE 12.5 MG TABLET PO ×2 (08:56→20:51)
[2023-01-14] MEDS: ROFLUMILAST 250 MCG TABLET PO (08:57)
[2023-01-14] MEDS: APIXABAN 5 MG TABLET PO ×2 (08:57→20:50)
--- NOTE | 2023-01-14 10:41 | PM.IMPN ---
Progress Note: A&P Assessment and Plan (1) Acute on chronic respiratory failure with hypoxia and hypercapnia: Code(s): J96.21 - Acute and chronic respiratory failure with hypoxia; J96.22 - Acute and chronic respiratory failure with hypercapnia Status: Acute Assessment and Plan: Acute on chronic respiratory failure which is multifactorial and secondary to COPD complicated by pneumonia and use of multiple sedatives including benzodiazepines and opioids. ? Aspiration Blood cultures is growing Staph epidermidis and Staph hominis Echo obtained. No vegetations Continue vancomycin+ rocephin. Discontinue Zosyn azithromycin. Bronchodilators continue present care transition to oxygen at 3 liters rpt today Consult pulmology pt still needing BIPAP 2 nights ago for her respiratory failure Continue current treatments of IV vancomycin and IV rocephin (2) Pneumonia of right lower lobe due to infectious organism: Code(s): J18.9 - Pneumonia, unspecified organism Status: Acute Assessment and Plan: See above (3) Sepsis: Code(s): A41.9 - Sepsis, unspecified organism Status: Acute Assessment and Plan: Lactic acid was elevated on presentation along with elevated WBC count likely secondary to pneumonia Lactic acid level has normalized with IV fluids Blood pressure adequate at this time Staph epidermidis and Staph hominis in aerobic and anaerobic culture. Continue vancomycin. Echo negative for vegetations (4) Bacteremia: Code(s): R78.81 - Bacteremia Status: Acute Assessment and Plan: See above Subjective Date/time seen: 01/14/23 10:41 Interval history: feels better, no new complaints Exam Narrative: General: Pt is alert awake and in no acute distress Lungs/Chest: Trachea central overall decreased BS B/L, crackles at right base. No wheezing, mild tachypnea Cardiac: RRR. Normal S1 S2. No murmurs Circulation: Pedal pulses are intact and symmetrical. Abdomen: Normal bowel sounds.. Soft. NT. ND. Cachectic Extremities: No clubbing, cyanosis or edema. Warm : Boss in place Neurologic: Alert awake and oriented follows commands. Moves all 4 extremities Skin: No Rash Objective Data Vital Signs Vital Signs: Vital Signs - 24 hr 01/13/23 13:00 01/13/23 13:08 01/13/23 14:00 Temperature 97.6 F Pulse Rate 101 H 103 H 105 H Respiratory Rate 18 20 18 Blood Pressure 98/62 L Pulse Oximetry 95 Oxygen Delivery Oxygen Flow Rate Fraction of Inspired Oxygen 01/13/23 20:22 01/13/23 20:25 01/13/23 20:31 Temperature Pulse Rate 98 98 98 Respiratory Rate 18 18 Blood Pressure Pulse Oximetry 95 Oxygen Delivery Nasal Cannula Oxygen Flow Rate 3 Fraction of Inspired Oxygen 32 01/13/23 20:00 01/13/23 21:59 01/13/23 20:32 Temperature 98.3 F Pulse Rate 110 H 101 H Respiratory Rate 18 18 Blood Pressure 130/81 Pulse Oximetry 95 98 Oxygen Delivery Nasal Cannula Oxygen Flow Rate 3 Fraction of Inspired Oxygen 01/14/23 02:46 01/14/23 02:30 01/14/23 06:25 Temperature 98 F Pulse Rate 97 101 H 104 H Respiratory Rate 18 22 H 20 Blood Pressure 129/82 Pulse Oximetry 98 97 Oxygen Delivery BiPAP Oxygen Flow Rate Fraction of Inspired Oxygen 01/14/23 07:39 01/14/23 07:40 01/14/23 07:52 Temperature Pulse Rate 102 H 104 H Respiratory Rate 20 20 Blood Pressure Pulse Oximetry 95 Oxygen Delivery Nasal Cannula Oxygen Flow Rate 3 Fraction of Inspired Oxygen 01/14/23 08:56 Temperature Pulse Rate 100 Respiratory Rate Blood Pressure Pulse Oximetry Oxygen Delivery Oxygen Flow Rate Fraction of Inspired Oxygen Intake/Output Intake/Output: Intake & Output 01/11/23 01/12/23 01/13/23 01/14/23 23:59 23:59 23:59 23:59 Intake Total 1300 2310 1730 650 Output Total 3350 Balance -2050 2310 1730 650 Meds/Results Medications: Active Medications Generi
--- NOTE | 2023-01-14 10:59 | PCPTNOTE ---
Patient refused treatment this session at this time stating she just took some pain medication and requests PT return later.
--- NOTE | 2023-01-14 12:13 | PM.PNPUL ---
Progress Note: A&P Assessment and Plan (1) Pneumonia of right lower lobe due to infectious organism: Code(s): J18.9 - Pneumonia, unspecified organism Status: Acute (2) Sepsis: Code(s): A41.9 - Sepsis, unspecified organism Status: Acute (3) Acute on chronic respiratory failure with hypoxia and hypercapnia: Code(s): J96.21 - Acute and chronic respiratory failure with hypoxia; J96.22 - Acute and chronic respiratory failure with hypercapnia Status: Acute Assessment and Plan: This 57-year-old has end-stage emphysema chronic hypoxemic hypercapnic respiratory failure, multiple hospitalizations for COPD exacerbation and acute on chronic hypercapnic respiratory failure hospitalized with right lung pneumonia leukocytosis and hypoxemic hypercapnic respiratory failure.? On admission the patient had evidence of right lower lobe pneumonia, positive blood cultures for Staph epidermidis and Staph hominis, and acute on chronic hypercapnic respiratory failure. The patient has received BiPAP support initially in the ICU as well as treatment with antibiotics for bacteremia/sepsis. Respiratory status has significantly improved. Patient has just right pleuritic chest pain which has been chronic according to the patient. Chest imaging studies including chest CT have shown persistent infiltrate with some cavitary formation in the left upper lobe as well as in right lower lobe along with small pleural effusion. It is very likely the pleuritic chest pain is related to small pleural effusion. Patient seems to be responding to current antibiotic regimen as leukocytosis is back into normal range. She has severe end-stage emphysema which in conjunction with the chronic infiltrates could indicate low-grade infection like atypical mycobacterial infection. Plan: Continue with current antibiotic regimen for now as patient has responded to it. WBC back into the normal range. Out of bed to chair. Anticipate DC home within the next couple of days. May induce sputum for AFB. (4) Chronic respiratory failure with hypoxia and hypercapnia: Code(s): J96.11 - Chronic respiratory failure with hypoxia; J96.12 - Chronic respiratory failure with hypercapnia Status: Acute (5) Pulmonary hypertension: Code(s): I27.20 - Pulmonary hypertension, unspecified Status: Acute Subjective Date/time seen: 01/14/23 12:13 Interval history: Patient without any new respiratory symptoms. She continues to have right pleuritic chest pain but less than before. She appears more comfortable while on supplemental oxygen. Use BiPAP support last night, tolerated BiPAP well. Still unable to cough sputum. Review of Systems Review of Systems: All systems reviewed & are unremarkable except as noted in HPI and below (HPI and below) Exam Narrative: GENERAL APPEARANCE: Well developed, well nourished, alert and cooperative, and appears to be in no mild respiratory distress while on supplemental oxygen via nasal cannula SKIN: Inspection of the skin reveals no rashes, ulcerations or petechiae. HEENT: Sclerae anicteric and conjunctivae pink and moist. Extraocular movements were intact and pupils were equal. The oral mucosa, hard and soft palate, tongue and posterior pharynx were normal. NECK: Supple. There was no thyroid enlargement, and no tenderness, or masses were felt. CHEST: Increased AP diameter, hyperinflated chest LUNGS: Distant breath sounds bilaterally no wheezing few crackles at right lung base posteriorly CARDIAC: There was a regular rate and rhythm without any murmurs, gallops, rubs. ABDOMEN: Soft and nontender with normal bowel sounds. There was no organomegaly. LYMPH NODES: No lymphadenopathy was appreciated in the neck, EXTREMITIES: No cyanosis, clubbing or edema. NEUROLOGIC: Alert and oriented x 3. Normal affect. Objective Data Vital Signs Vital Signs: Vital Signs - 24 hr 01/13/23 13:00 01/13/23 13:08 01/13/23
[2023-01-14] MEDS: GABAPENTIN 300 MG CAPSULE 600 MG PO (18:11)
[2023-01-15] VITALS (17 sets, daily range): BP systolic 101–146; BP diastolic 64–90; PULSE 86–113; RESP 12–20; TEMP 35.6–36.3; O2SAT 93–99
[2023-01-15] MEDS: IPRATROPIUM BR 0.02% INH SOLN 0.5 MG/2.5 ML VIAL INHALATION ×4 (01:25→20:14)
[2023-01-15] MEDS: ALBUTEROL SULFATE NEB 2.5 MG/3 ML INH INHALATION ×4 (01:25→20:14)
[2023-01-15] MEDS: hydrOXYzine HCL 25 MG TABLET 50 MG PO ×2 (08:29→22:01)
[2023-01-15] MEDS: HYDROcodone/acetaminophen (*CRX) 5-325 MG TABLET 1 TAB PO ×4 (08:29→22:01)
[2023-01-15] MEDS: ROFLUMILAST 250 MCG TABLET PO (08:29)
[2023-01-15] MEDS: busPIRone HCL 10 MG, busPIRone HCL 5 MG 15 MG PO ×2 (08:30→20:51)
[2023-01-15] MEDS: VENLAFAXINE HCL XR 75 MG CAP.ER.24H 150 MG PO (08:30)
[2023-01-15] MEDS: APIXABAN 5 MG TABLET PO ×2 (08:30→20:51)
[2023-01-15] MEDS: PANTOPRAZOLE 40 MG TABLET PO ×2 (08:30→20:51)
[2023-01-15] MEDS: GABAPENTIN 300 MG CAPSULE 600 MG PO ×3 (08:30→17:44)
[2023-01-15] MEDS: METOPROLOL TARTRATE 12.5 MG TABLET PO ×2 (08:30→20:51)
[2023-01-15] MEDS: UMECLIDINIUM BROMIDE 62.5 MCG ELLIPTA 1 PUFF INHALATION (09:01)
[2023-01-15] MEDS: FLUTICASONE/SALMETEROL 115-21 MCG INHALER 1 PUFF 2 PUFF INHALATION ×2 (09:02→20:23)
[2023-01-15 09:10] LABS: Blood Urea Nitrogen 12 mg/dL (7-17); Calcium 8.9 mg/dL (8.4-10.2); Carbon Dioxide > 40 mmol/L (22-30); Chloride 88 mmol/L (98-107); Estimated CRCL calculation 86 ml/min; Estimated Glomerular Filt Rate > 60; Glucose 131 mg/dL (65-110); Potassium 4.6 mmol/L (3.4-5.0); Sodium 134 mmol/L (137-145)
[2023-01-15 09:20] LABS: Basophils Absolute Auto 0.1 K/mm3 (0.0-0.1); Basophils Percent Auto 1.1 % (0.2-1.2); Eosinophils Absolute Auto 0.6 K/mm3 (0-0.3); Eosinophils Percent Auto 4.1 % (0-4.4); Hematocrit 38.1 % (37.0-47.0); Hemoglobin 11.4 g/dL (12.0-15.0); Immature Granulocyte Absolute 0.06 K/mm3 (0.00-0.031); Immature Granulocyte Percent A 0.5 % (0-0.5); Lymphocytes Absolute Auto 2.07 K/mm3 (0.9-3.2); Lymphocytes Percent Auto 15.6 % (18.3-44.2); Mean Corpuscular HGB Conc 29.9 g/dl (32-36); Mean Corpuscular Hemoglobin 27.5 pg (26-34); Monocytes Absolute Auto 1.6 K/mm3 (0.1-0.6); Monocytes Percent Auto 11.7 % (2.6-8.5); Neutrophils Absolute Auto 8.9 K/mm3 (1.3-6.7); Platelet Count Result 492 k/mm3 (150-375); Red Blood Count 4.14 M/mm3 (4.2-5.4); Red Cell Distribution Width 13.1 % (11.5-14.5); White Blood Count 13.3 K/mm3 (4.5-10.0)
--- NOTE | 2023-01-15 09:33 | PM.PNPUL ---
Progress Note: A&P Assessment and Plan (1) Pneumonia of right lower lobe due to infectious organism: Code(s): J18.9 - Pneumonia, unspecified organism Status: Acute (2) Sepsis: Code(s): A41.9 - Sepsis, unspecified organism Status: Acute (3) Acute on chronic respiratory failure with hypoxia and hypercapnia: Code(s): J96.21 - Acute and chronic respiratory failure with hypoxia; J96.22 - Acute and chronic respiratory failure with hypercapnia Status: Acute Assessment and Plan: This 57-year-old has end-stage emphysema chronic hypoxemic hypercapnic respiratory failure, multiple hospitalizations for COPD exacerbation and acute on chronic hypercapnic respiratory failure hospitalized with right lung pneumonia leukocytosis and hypoxemic hypercapnic respiratory failure.? On admission the patient had evidence of right lower lobe pneumonia, positive blood cultures for Staph epidermidis and Staph hominis, and acute on chronic hypercapnic respiratory failure. The patient has received BiPAP support initially in the ICU as well as treatment with antibiotics for bacteremia/sepsis. Respiratory status has significantly improved. Patient has just right pleuritic chest pain which has been chronic according to the patient. Chest imaging studies including chest CT have shown persistent infiltrate with some cavitary formation in the left upper lobe as well as in right lower lobe along with small pleural effusion. It is very likely the pleuritic chest pain is related to small pleural effusion. Patient seems to be responding to current antibiotic regimen as leukocytosis is back into normal range. She has severe end-stage emphysema which in conjunction with the chronic infiltrates could indicate low-grade infection like atypical mycobacterial infection. Plan: Okay to discharge patient home in a.m.. The patient will continue with her maintenance bronchodilators, Daliresp supplemental oxygen at 2 liters/minute and the home ventilator. She will need further testing with chest x-ray to document clearing of pneumonia. 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 Will sign off please call with any questions. (4) Chronic respiratory failure with hypoxia and hypercapnia: Code(s): J96.11 - Chronic respiratory failure with hypoxia; J96.12 - Chronic respiratory failure with hypercapnia Status: Acute (5) Pulmonary hypertension: Code(s): I27.20 - Pulmonary hypertension, unspecified Status: Acute Subjective Date/time seen: 01/15/23 09:33 Interval history: Patient without any new respiratory symptoms. Continues to have mild pleuritic chest pain on right. Has not been able to cough up any phlegm. Afebrile. Using BiPAP support at night. Review of Systems Review of Systems: All systems reviewed & are unremarkable except as noted in HPI and below (HPI and below) Exam Narrative: GENERAL APPEARANCE: Well developed, well nourished, alert and cooperative, and appears to be in no mild respiratory distress while on supplemental oxygen via nasal cannula SKIN: Inspection of the skin reveals no rashes, ulcerations or petechiae. HEENT: Sclerae anicteric and conjunctivae pink and moist. Extraocular movements were intact and pupils were equal. The oral mucosa, hard and soft palate, tongue and posterior pharynx were normal. NECK: Supple. There was no thyroid enlargement, and no tenderness, or masses were felt. CHEST: Increased AP diameter, hyperinflated chest LUNGS: Distant breath sounds bilaterally no wheezing few crackles at right lung base posteriorly CARDIAC: There was a regular rate and rhythm without any murmurs, gallops, rubs. ABDOMEN: Soft and nontender with normal bowel sounds. There was no organomegaly. LYMPH NODES: No lymphadenopathy was appreciated in the neck, EXTREMITIES: No cyanosis, clubbing or edema. NEUROLOGIC: Alert and oriented x 3. Normal af
--- NOTE | 2023-01-15 11:08 | PM.IMPN ---
Progress Note: A&P Assessment and Plan (1) Acute on chronic respiratory failure with hypoxia and hypercapnia: Code(s): J96.21 - Acute and chronic respiratory failure with hypoxia; J96.22 - Acute and chronic respiratory failure with hypercapnia Status: Acute Assessment and Plan: Acute on chronic respiratory failure which is multifactorial and secondary to COPD complicated by pneumonia and use of multiple sedatives including benzodiazepines and opioids. ? Aspiration Blood cultures is growing Staph epidermidis and Staph hominis Echo obtained. No vegetations Continue vancomycin+ rocephin. Discontinue Zosyn azithromycin. Bronchodilators continue present care transition to oxygen at 3 liters rpt today Consult pulmology pt still needing BIPAP 2 nights ago for her respiratory failure Continue current treatments of IV vancomycin and IV rocephin (2) Pneumonia of right lower lobe due to infectious organism: Code(s): J18.9 - Pneumonia, unspecified organism Status: Acute Assessment and Plan: See above (3) Sepsis: Code(s): A41.9 - Sepsis, unspecified organism Status: Acute Assessment and Plan: Lactic acid was elevated on presentation along with elevated WBC count likely secondary to pneumonia Lactic acid level has normalized with IV fluids Blood pressure adequate at this time Staph epidermidis and Staph hominis in aerobic and anaerobic culture. Continue vancomycin. Echo negative for vegetations (4) Bacteremia: Code(s): R78.81 - Bacteremia Status: Acute Assessment and Plan: See above Subjective Date/time seen: 01/15/23 11:08 Interval history: No new complaints Exam Narrative: General: Pt is alert awake and in no acute distress Lungs/Chest: Trachea central overall decreased BS B/L, crackles at right base. No wheezing, mild tachypnea Cardiac: RRR. Normal S1 S2. No murmurs Circulation: Pedal pulses are intact and symmetrical. Abdomen: Normal bowel sounds.. Soft. NT. ND. Cachectic Extremities: No clubbing, cyanosis or edema. Warm : Boss in place Neurologic: Alert awake and oriented follows commands. Moves all 4 extremities Skin: No Rash Objective Data Vital Signs Vital Signs: Vital Signs - 24 hr 01/14/23 13:52 01/14/23 14:06 01/14/23 16:00 Temperature 97.2 F L Pulse Rate 95 96 103 H Respiratory Rate 18 18 14 Blood Pressure 127/67 Pulse Oximetry 97 Oxygen Delivery Oxygen Flow Rate Fraction of Inspired Oxygen 01/14/23 20:06 01/14/23 20:06 01/14/23 20:15 Temperature Pulse Rate 100 100 103 H Respiratory Rate 18 18 18 Blood Pressure Pulse Oximetry 96 Oxygen Delivery Nasal Cannula Oxygen Flow Rate 3 Fraction of Inspired Oxygen 32 01/14/23 20:51 01/14/23 22:00 01/15/23 01:30 Temperature 97.3 F L Pulse Rate 100 100 98 Respiratory Rate 16 20 Blood Pressure 136/93 H Pulse Oximetry 100 Oxygen Delivery Oxygen Flow Rate Fraction of Inspired Oxygen 01/14/23 20:00 01/14/23 23:10 01/15/23 04:08 Temperature Pulse Rate 96 88 Respiratory Rate 20 20 Blood Pressure Pulse Oximetry 100 98 96 Oxygen Delivery Nasal Cannula BiPAP BiPAP Oxygen Flow Rate 3 Fraction of Inspired Oxygen 01/15/23 06:00 01/15/23 06:00 01/15/23 08:00 Temperature 97.2 F L Pulse Rate 105 H Respiratory Rate 16 Blood Pressure 134/90 Pulse Oximetry 98 99 99 Oxygen Delivery Nasal Cannula Nasal Cannula Oxygen Flow Rate 3 3 Fraction of Inspired Oxygen 01/15/23 08:55 01/15/23 09:06 01/15/23 09:10 Temperature Pulse Rate 90 98 Respiratory Rate 20 20 Blood Pressure Pulse Oximetry 95 Oxygen Delivery Nasal Cannula Oxygen Flow Rate 3 Fraction of Inspired Oxygen Intake/Output Intake/Output: Intake & Output 01/12/23 01/13/23 01/14/23 01/15/23 23:59 23:59 23:59 23:59 Intake Total 2310 1730 3620 730 Balance 2310 1730 3620 730 Meds/Result
[2023-01-15 11:31] LABS: Vancomycin Trough 10.3 ug/mL (10.0-20.0)
[2023-01-15] MEDS: VANCOMYCIN 1,000 MG/NS 250 ML 1,000 MG/250 ML BAG 100 MG IVPB (11:41)
--- NOTE | 2023-01-15 12:19 | PCNFU ---
Nutrition Follow-Up Complete: Inadequate Energy Expenditure as related to COPD as evidenced by BMI: 17.6 underweight. Meet estimated nutritional needs - Meeting goal Goal: Pt current nutrition is Heart healthy diet. Ensure Enlive TID for additional 350 kcal and 20 g protein each. Nutrition recommendation: Continue current nutrition care plan and orders with no changes Last recorded weight is 42.9 kg. Bowel Motility: + 1 BM 01/13/23 Labs Reviewed: Hgb 11.4, Na 134, Cre 0.4 Meds Noted:Eliquis Skin: No pressure related breakdown Additional Notes: Continues on heart healthy diet, intakes improved. Drinking 100% Ensure. Plan is to return to [place]. Discharge likely soon per notes. Will monitor, weight, labs oral intake, skin every 5 days.
[2023-01-15] MEDS: ALPRAZolam (*CRX) 0.5 MG TABLET PO (13:09)
[2023-01-16] VITALS (17 sets, daily range): BP systolic 107–124; BP diastolic 68–86; PULSE 86–110; RESP 16–20; TEMP 35.2–36.3; O2SAT 93–100
[2023-01-16] MEDS: VANCOMYCIN 1,000 MG/NS 250 ML 1,000 MG/250 ML BAG 250 MG IVPB (00:26)
[2023-01-16] MEDS: ALBUTEROL SULFATE NEB 2.5 MG/3 ML INH INHALATION ×4 (03:03→21:02)
[2023-01-16] MEDS: IPRATROPIUM BR 0.02% INH SOLN 0.5 MG/2.5 ML VIAL INHALATION ×4 (03:04→21:01)
[2023-01-16] MEDS: HYDROcodone/acetaminophen (*CRX) 5-325 MG TABLET 1 TAB PO ×5 (05:21→22:10)
[2023-01-16] MEDS: hydrOXYzine HCL 25 MG TABLET 50 MG PO ×3 (06:47→22:11)
[2023-01-16] MEDS: GABAPENTIN 300 MG CAPSULE 600 MG PO ×3 (08:12→16:56)
[2023-01-16] MEDS: VENLAFAXINE HCL XR 75 MG CAP.ER.24H 150 MG PO (08:12)
[2023-01-16] MEDS: METOPROLOL TARTRATE 12.5 MG TABLET PO ×2 (08:12→20:52)
[2023-01-16] MEDS: busPIRone HCL 10 MG, busPIRone HCL 5 MG 15 MG PO ×2 (08:12→20:51)
[2023-01-16] MEDS: ROFLUMILAST 250 MCG TABLET PO (08:12)
[2023-01-16] MEDS: PANTOPRAZOLE 40 MG TABLET PO ×2 (08:12→20:52)
[2023-01-16] MEDS: APIXABAN 5 MG TABLET PO ×2 (08:13→20:52)
[2023-01-16] MEDS: FLUTICASONE/SALMETEROL 115-21 MCG INHALER 1 PUFF 2 PUFF INHALATION (08:44)
[2023-01-16] MEDS: ALPRAZolam (*CRX) 0.5 MG TABLET PO ×2 (09:35→17:32)
--- NOTE | 2023-01-16 11:28 | PM.IMPN ---
Progress Note: A&P Assessment and Plan (1) Acute on chronic respiratory failure with hypoxia and hypercapnia: Code(s): J96.21 - Acute and chronic respiratory failure with hypoxia; J96.22 - Acute and chronic respiratory failure with hypercapnia Status: Acute Assessment and Plan: Acute on chronic respiratory failure which is multifactorial and secondary to COPD complicated by pneumonia and use of multiple sedatives including benzodiazepines and opioids. ? Aspiration Blood cultures is growing Staph epidermidis and Staph hominis Echo obtained. No vegetations Continue vancomycin+ rocephin. Discontinue Zosyn azithromycin. Bronchodilators continue present care transition to oxygen at 3 liters rpt today Consult pulmology pt still needing BIPAP 2 nights ago for her respiratory failure Continue current treatments of IV vancomycin and IV rocephin (2) Pneumonia of right lower lobe due to infectious organism: Code(s): J18.9 - Pneumonia, unspecified organism Status: Acute Assessment and Plan: See above (3) Sepsis: Code(s): A41.9 - Sepsis, unspecified organism Status: Acute Assessment and Plan: Lactic acid was elevated on presentation along with elevated WBC count likely secondary to pneumonia Lactic acid level has normalized with IV fluids Blood pressure adequate at this time Staph epidermidis and Staph hominis in aerobic and anaerobic culture. Continue vancomycin. Echo negative for vegetations (4) Bacteremia: Code(s): R78.81 - Bacteremia Status: Acute Assessment and Plan: See above Subjective Date/time seen: 01/16/23 11:28 Interval history: no complaints Exam Narrative: General: Pt is alert awake and in no acute distress Lungs/Chest: Trachea central overall decreased BS B/L, crackles at right base. No wheezing, mild tachypnea Cardiac: RRR. Normal S1 S2. No murmurs Circulation: Pedal pulses are intact and symmetrical. Abdomen: Normal bowel sounds.. Soft. NT. ND. Cachectic Extremities: No clubbing, cyanosis or edema. Warm : Boss in place Neurologic: Alert awake and oriented follows commands. Moves all 4 extremities Skin: No Rash Objective Data Vital Signs Vital Signs: Vital Signs - 24 hr 01/15/23 13:20 01/15/23 13:36 01/15/23 14:00 Temperature 97.3 F L Pulse Rate 98 87 97 Respiratory Rate 20 20 16 Blood Pressure 101/64 Pulse Oximetry 97 Oxygen Delivery Oxygen Flow Rate Fraction of Inspired Oxygen 01/15/23 20:14 01/15/23 20:17 01/15/23 20:29 Temperature Pulse Rate 111 H 111 H 110 H Respiratory Rate 20 18 20 Blood Pressure Pulse Oximetry 93 Oxygen Delivery Nasal Cannula Oxygen Flow Rate 3 Fraction of Inspired Oxygen 32 01/15/23 20:51 01/15/23 20:00 01/15/23 23:44 Temperature Pulse Rate 96 86 Respiratory Rate 20 Blood Pressure Pulse Oximetry 98 95 Oxygen Delivery Nasal Cannula BiPAP Oxygen Flow Rate 3 Fraction of Inspired Oxygen 01/15/23 22:00 01/16/23 03:02 01/16/23 03:30 Temperature 96.0 F L Pulse Rate 113 H 99 86 Respiratory Rate 12 20 20 Blood Pressure 146/83 H Pulse Oximetry 95 98 Oxygen Delivery BiPAP Oxygen Flow Rate Fraction of Inspired Oxygen 01/16/23 06:15 01/16/23 03:15 01/16/23 06:00 Temperature 97.2 F L Pulse Rate 98 95 Respiratory Rate 20 16 Blood Pressure 124/86 Pulse Oximetry 99 100 Oxygen Delivery Nasal Cannula Oxygen Flow Rate 3 Fraction of Inspired Oxygen 01/16/23 08:45 01/16/23 08:46 01/16/23 08:54 Temperature Pulse Rate 104 H 102 H 107 H Respiratory Rate 20 20 Blood Pressure Pulse Oximetry 93 Oxygen Delivery Nasal Cannula Oxygen Flow Rate 3 Fraction of Inspired Oxygen 01/16/23 08:00 Temperature Pulse Rate Respiratory Rate Blood Pressure Pulse Oximetry 93 Oxygen Delivery Nasal Cannula Oxygen Flow Rate 3 Fraction of Inspired Oxygen Intake/Output
[2023-01-16] MEDS: VANCOMYCIN 1,000 MG/NS 250 ML 1,000 MG/250 ML BAG 100 MG IVPB (12:49)
[2023-01-16] MEDS: UMECLIDINIUM BROMIDE 62.5 MCG ELLIPTA 1 PUFF INHALATION (13:01)
[2023-01-17] VITALS (8 sets, daily range): BP systolic 97; BP diastolic 66–69; PULSE 93–111; RESP 16–20; TEMP 35.8–36.4; O2SAT 94–98
[2023-01-17] MEDS: ALBUTEROL SULFATE NEB 2.5 MG/3 ML INH INHALATION ×3 (02:32→14:06)
[2023-01-17] MEDS: IPRATROPIUM BR 0.02% INH SOLN 0.5 MG/2.5 ML VIAL INHALATION ×3 (02:32→14:06)
[2023-01-17] MEDS: HYDROcodone/acetaminophen (*CRX) 5-325 MG TABLET 1 TAB PO ×2 (02:35→13:55)
[2023-01-17] MEDS: ALPRAZolam (*CRX) 0.5 MG TABLET PO ×2 (02:57→16:52)
[2023-01-17 07:07] LABS: Basophils Absolute Auto 0.1 K/mm3 (0.0-0.1); Basophils Percent Auto 1.2 % (0.2-1.2); Eosinophils Absolute Auto 0.4 K/mm3 (0-0.3); Eosinophils Percent Auto 4.4 % (0-4.4); Hemoglobin 8.7 g/dL (12.0-15.0); Immature Granulocyte Absolute 0.04 K/mm3 (0.00-0.031); Immature Granulocyte Percent A 0.4 % (0-0.5); Lymphocytes Absolute Auto 2.09 K/mm3 (0.9-3.2); Lymphocytes Percent Auto 22.3 % (18.3-44.2); Mean Corpuscular Hemoglobin 27.4 pg (26-34); Mean Corpuscular Volume 94.3 fl (80-100); Mean Platelet Volume 9.9 fl (7.4-10.4); Monocytes Absolute Auto 1.1 K/mm3 (0.1-0.6); Monocytes Percent Auto 11.2 % (2.6-8.5); Neutrophils Absolute Auto 5.7 K/mm3 (1.3-6.7); Neutrophils Percent Auto 60.5 % (45.5-73.1); Platelet Count Result 332 k/mm3 (150-375); Red Blood Count 3.18 M/mm3 (4.2-5.4); Red Cell Distribution Width 13.1 % (11.5-14.5); White Blood Count 9.4 K/mm3 (4.5-10.0)
[2023-01-17 07:34] LABS: Anion Gap 6 mmol/L (8-16); Blood Urea Nitrogen 11 mg/dL (7-17); Calcium 8.2 mg/dL (8.4-10.2); Carbon Dioxide 39 mmol/L (22-30); Chloride 89 mmol/L (98-107); Estimated CRCL calculation 78 ml/min; Estimated Glomerular Filt Rate > 60; Glucose 177 mg/dL (65-110); Potassium 3.7 mmol/L (3.4-5.0); Sodium 134 mmol/L (137-145)
[2023-01-17] MEDS: UMECLIDINIUM BROMIDE 62.5 MCG ELLIPTA 1 PUFF INHALATION (08:13)
[2023-01-17] MEDS: FLUTICASONE/SALMETEROL 115-21 MCG INHALER 1 PUFF 2 PUFF INHALATION (08:13)
[2023-01-17] MEDS: hydrOXYzine HCL 25 MG TABLET 50 MG PO (10:15)
[2023-01-17] MEDS: busPIRone HCL 10 MG, busPIRone HCL 5 MG 15 MG PO (10:15)
[2023-01-17] MEDS: ROFLUMILAST 250 MCG TABLET PO (10:15)
[2023-01-17] MEDS: VENLAFAXINE HCL XR 75 MG CAP.ER.24H 150 MG PO (10:16)
[2023-01-17] MEDS: GABAPENTIN 300 MG CAPSULE 600 MG PO ×3 (10:16→16:52)
[2023-01-17] MEDS: APIXABAN 5 MG TABLET PO (10:16)
[2023-01-17] MEDS: METOPROLOL TARTRATE 12.5 MG TABLET PO (10:16)
[2023-01-17] MEDS: PANTOPRAZOLE 40 MG TABLET PO (10:16)
--- NOTE | 2023-01-17 11:55 | PM.DS ---
DS: Admitting Diagnosis Discharge Date January 17, 2023 Admitting Diagnosis Respiratory failure, acute on chronic hypercapnic DS: Discharge Diagnosis Discharge Diagnosis (1) Acute on chronic respiratory failure with hypoxia and hypercapnia: Code(s): J96.21 - Acute and chronic respiratory failure with hypoxia; J96.22 - Acute and chronic respiratory failure with hypercapnia Status: Acute Assessment and Plan: Acute on chronic respiratory failure which is multifactorial and secondary to COPD complicated by pneumonia and use of multiple sedatives including benzodiazepines and opioids. ? Aspiration Blood cultures is growing Staph epidermidis and Staph hominis Echo obtained. No vegetations Continue vancomycin+ rocephin. Discontinue Zosyn azithromycin. Bronchodilators continue present care transition to oxygen at 3 liters rpt today Consult pulmology pt still needing BIPAP 2 nights ago for her respiratory failure Continue current treatments of IV vancomycin and IV rocephin (2) Pneumonia of right lower lobe due to infectious organism: Code(s): J18.9 - Pneumonia, unspecified organism Status: Acute Assessment and Plan: See above (3) Sepsis: Code(s): A41.9 - Sepsis, unspecified organism Status: Acute Assessment and Plan: Lactic acid was elevated on presentation along with elevated WBC count likely secondary to pneumonia Lactic acid level has normalized with IV fluids Blood pressure adequate at this time Staph epidermidis and Staph hominis in aerobic and anaerobic culture. Continue vancomycin. Echo negative for vegetations (4) Bacteremia: Code(s): R78.81 - Bacteremia Status: Acute Assessment and Plan: See above DS: Summary Hospital Course Hospital Course: 57-year-old female came in with hypercapnic respiratory failure. Was started on antibiotics and treatment. Did well from respiratory standpoint. However her blood cultures did grow positive for Staph epi. Workup was negative. She received vancomycin IV in the hospital. She is otherwise now stable and does not have sepsis. She can be discharged Time Spent with Patient Time attestation: Total time spent providing and/or coordinating discharge services: Exam Narrative: General: Pt is alert awake and in no acute distress Lungs/Chest: Trachea central overall decreased BS B/L, crackles at right base. No wheezing, mild tachypnea Cardiac: RRR. Normal S1 S2. No murmurs Circulation: Pedal pulses are intact and symmetrical. Abdomen: Normal bowel sounds.. Soft. NT. ND. Cachectic Extremities: No clubbing, cyanosis or edema. Warm : Boss in place Neurologic: Alert awake and oriented follows commands. Moves all 4 extremities Skin: No Rash DS: Data Data Completed and Pending Labs on day of discharge: Labs from last 24 hours 01/17/23 06:40 WBC 9.4 RBC 3.18 L Hgb 8.7 L Hct 30.0 L MCV 94.3 MCH 27.4 MCHC 29.0 L RDW 13.1 Plt Count 332 MPV 9.9 Immature Gran % (Auto) 0.4 Neut % (Auto) 60.5 Lymph % (Auto) 22.3 Vance % (Auto) 11.2 H Eos % (Auto) 4.4 Baso % (Auto) 1.2 Lymph # (Auto) 2.09 Vance # (Auto) 1.1 H Eos # (Auto) 0.4 H Baso # (Auto) 0.1 Abs Immat Gran (auto) 0.04 H Absolute Neuts (auto) 5.7 Absolute Nucleated RBC 0.0 Nucleated RBC % 0.0 Sodium 134 L Potassium 3.7 Chloride 89 L Carbon Dioxide 39 H Anion Gap 6 L BUN 11 Creatinine 0.50 L Estim Creat Clear Calc 78 Estimated GFR > 60 Glucose 177 H Calcium 8.2 L Discharge Plan Discharge Attending physician on discharge: Hany Londono Consulting providers: Adelfo Patel; Rob Márquez Discharging Clinician: Hnay Londono Patient Disposition: Home, Self-Care Activity: as tolerated Diet: as tolerated Patient Instructions: Antibiotic Form, Apixaban (By mouth), Heart Failure (DC), How to Stop Smoking (DC), Pain Management in Older Adults (DC)
== END 2023-01-17 19:30 | disposition home or self-care (01) | DRG 133 ==
LOC: ANHED 01-06 00:06 → ANHICU 01-06 00:55 → ANH3MEDSUR 01-07 10:01 → ANHIMU 01-07 18:39 → ANH3MEDSUR 01-09 12:37
PROVIDERS: Family Medicine; Hospitalist; Internal Medicine; Internal Medicine Pulmonary Disease; Admitting Provider Internal Medicine; Emergency Provider Emergency Medicine; PCP Family Medicine; Visit Provider Chiropractor
DX: J96.21 Acute and chronic respiratory failure with hypoxia (principal); J18.9 Pneumonia, unspecified organism; I27.20 Pulmonary hypertension, unspecified; E46 Unspecified protein-calorie malnutrition; I11.0 Hypertensive heart disease with heart failure; I50.32 Chronic diastolic (congestive) heart failure; B95.7 Other staphylococcus as the cause of diseases classified elsewhere; J43.9 Emphysema, unspecified; J96.22 Acute and chronic respiratory failure with hypercapnia; Z99.81 Dependence on supplemental oxygen; F17.210 Nicotine dependence, cigarettes, uncomplicated; Z20.822 Contact with and (suspected) exposure to COVID-19; F41.9 Anxiety disorder, unspecified; Z86.718 Personal history of other venous thrombosis and embolism; F32.A Depression, unspecified; K21.9 Gastro-esophageal reflux disease without esophagitis; Z86.711 Personal history of pulmonary embolism; R91.8 Other nonspecific abnormal finding of lung field; Z79.01 Long term (current) use of anticoagulants; Z68.1 Body mass index [BMI] 19.9 or less, adult
CPT/HCPCS: 36415; 36600; 70450; 71045; 71250; 74018; 80048; 80053; 80202; 80307; 81001; 82805; 83605; 83735; 83880; 84100; 84132; 84145; 84484; 85025; 85027; 85610; 85730; 87040; 87077; 87081; 87186; 87636; 93005; 93306; 94002; 94640; 96365; 96367; 97110; 97161; 97530; 99285; A9270; J0330; J0456; J0696; J2060; J2543; J3370; J7030